=== PATIENT | female | born 1935 | race Caucasian/White ===

== ENCOUNTER 2017-05-09 19:20 | Inpatient (IN) | payer OTHER, MEDICARE ==
[~2017-05-09] VITALS: Ht 175.3 cm; Wt 78.2 kg
[~2017-05-09 19:20] MED LIST: ASPI81TA21 PO; ATV5 PO; CHOL100027 PO; CLBCRM30 EXT; CLX20 PO; FURO20TA PO; LOVA20TA4 PO; METO50TA7 PO; METR0.754; PRED-301 PO; SPIR25TA PO; prolia SC; uloric PO
[2017-05-09] MEDS ORDERED: SODIUM CHLORIDE 0.9% 1000ML 1,000 ML IV STA (19:44)
[2017-05-09] MEDS ORDERED: ONDANSETRON INJ 2 MG/ML 2 ML VIAL IV STA (19:44)
[2017-05-09] MEDS ORDERED: MoRPHine SULFATE 4 MG/ML 1 ML CARP\\VIAL IV PRN (19:45)
[2017-05-09 20:10] LABS: BASO % 0.5 %; BASO ABS # 0.03 K/uL (0-0.2); COMPLETE YES; EOS % 3.8 %; HEMATOCRIT 29.6 % (37-47); IG% 0.2 %; LYMPH % 12.8 %; LYMPH ABS # 0.74 K/uL (1.2-3.4); MEAN CELL VOLUME 92.5 fL (80-100); MEAN CORPUSCULAR HEMOGLOBIN 31.3 pg (25-34); MEAN CORPUSCULAR HGB CONC 33.8 g/dl (32-36); MEAN PLATELET VOLUME 9.3 fL (7.4-10.4); MONO % 11.1 %; NEUT % 71.6 %; PLATELET COUNT 203 K/uL (130-400); WHITE BLOOD COUNT 5.79 K/uL (4.8-10.8)
[2017-05-09] MEDS ORDERED: FURO-85 PO (20:11)
[2017-05-09] MEDS ORDERED: LISI-729 PO (20:11)
[2017-05-09] MEDS ORDERED: METO25TA3 PO (20:11)
[2017-05-09] MEDS ORDERED: TRMCR130WC TOP (20:11)
[2017-05-09] MEDS ORDERED: LCTX PO (20:11)
--- NOTE | 2017-05-09 20:11 | EMERGENCY ROOM VISIT NOTE ---
History Report prepared by Marlena: Selam Lemon Under the Supervision of: Dr. Lam Jernigan D.O. 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 She presents to the ED by EMS. She states that she fell over her own feet and fell onto carpet. She reports right hip pain. She denies any head pain, neck pain, shoulder pain, arm pain, leg pain, or back pain. She is not on any blood thinners. She states she has a cow heart valve replacement. 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 Pt denies shoulder pain, arm pain, leg pain. Review of Systems See HPI for pertinent positives & negatives. A total of 10 systems reviewed and were otherwise negative. Past Medical & Surgical Medical Problems: (1) H/O aortic valve replacement (2) Right femoral fracture Family History No pertinent family history stated. Social History Smoking Status: Current Every Day Smoker Marital Status: Occupation Status: retired Current/Historical Medications Scheduled Aspirin Enteric Coated (Ecotrin Or Generic), 81 MG PO Q2D Cholecalciferol (Vitamin D 1000 Unit), 1,000 INTER.UNIT PO DAILY Furosemide (Lasix), 20 MG PO QAM Lactobacillus Acidophilus (Lactinex), 1 TAB PO DAILY Lisinopril (Zestril), 5 MG PO DAILY Lovastatin (Mevacor), 20 MG PO HS Metoprolol Succ (Toprol Xl) (Toprol-Xl), 12.5 MG PO DAILY Triamcinolone Acet (Aristocort 0.1%), 1 APPLN TOP BID Allergies Coded Allergies: Allopurinol (Unverified Allergy, Intermediate, RASH, 05/30/12) Cephalosporins (Verified Allergy, Unknown, 05/09/17) Physical Exam Vital Signs Date Time Temp Pulse Resp B/P (MAP) Pulse Ox O2 Delivery O2 Flow Rate FiO2 05/09/17 21:31 188/77 05/09/17 21:25 70 19 99 05/09/17 21:21 68 18 172/95 99 Room Air 05/09/17 21:20 68 16 98 05/09/17 21:01 172/95 05/09/17 20:51 67 18 175/77 99 Room Air 05/09/17 20:50 65 20 98 05/09/17 20:40 175/77 05/09/17 19:50 67 17 97 05/09/17 19:45 67 18 147/69 98 Room Air 05/09/17 19:40 147/69 05/09/17 19:25 165/84 05/09/17 19:20 36.8 68 18 165/84 98 Room Air Physical Exam GENERAL: Patient is awake, alert, very anxious appearing, appears to be in significant pain. EYES: The conjunctivae are clear. The pupils are round and reactive. EARS, NOSE, MOUTH AND THROAT: The nose is without any evidence of any deformity. Mucous membranes are moist tongue is midline NECK: The neck is nontender and supple. RESPIRATORY: Normal respiratory effort is noted there is no evidence of wheezing rhonchi or rales CARDIOVASCULAR: Regular rate and rhythm noted to auscultation. Systolic murmur was appreciated. GASTROINTESTINAL: The abdomen is soft. Bowel sounds are present in all quadrants. Abdomen is nontender PELVIS: The Pelvis is stable. No tenderness to palpation is noted. BACK: No midline tenderness or or step-off noted range of motion in flexion extension as well as rotation no signs of muscle spasm noted MUSCULOSKELETAL/EXTREMITIES: RLE was mildly shortened, but not significantly rotated. Patient has significant pain with any ROM testing. Pulses were symmetric. SKIN: Pedal edema bilaterally. NEUROLOGIC: Patient is awake alert and oriented x3 Medical Decision & Procedures ER Provider Diagnostic Interpretation: X-ray results as stated below per interpretation by me and the radiologist. SINGLE VIEW CHEST CLINICAL HISTORY: Fall. FINDINGS: 2 AP, portable, supine chest radiographs are compared to study dated 01/27/2012 and correlated with chest CT dated 01/25/2012. The examination is degraded by portable technique and patient rotation. The patient is status post midline sternotomy. The heart is mildly enlarged and there is atherosclerotic calcification of the thoracic aorta. The pulmonary vasculature is noncongested. Emphysema and chronic interstitial thickening are similar to previous. No airspace consolidation, large pleural effusion, or pneumothorax is seen. Apical scarring is observed. The skeletal structures are osteopenic. The bony thorax is grossly intact. IMPRESSION: Cardiomegaly and emphysema. No acute cardiopulmonary abnormality is identified. Electronically signed by: Don Fallon M.D. 05/09/2017 8:28 PM Dictated Date/Time: 05/09/2017 8:27 PM SINGLE VIEW PELVIS; 2 VIEWS RIGHT HIP; 2 VIEWS RIGHT FEMUR CLINICAL HISTORY: Fall with right hip and leg pain. FINDINGS: An AP view of the pelvis with AP and frog-leg views of the right hip as well as AP and crosstable lateral views of the right femur are obtained. Correlation is made with pelvic CT dated 01/25/2012. The skeletal structures are osteopenic. There is an impacted and comminuted intertrochanteric/subtrochanteric fracture of the right femur. There is medial distraction of the lesser trochanter with mild apex lateral angulation. Soft tissue edema/hematoma is seen around the fracture site PA no additional fracture is identified in the distal right femur. The right knee is grossly intact noting arthritic change. The bony pelvis appears intact, as does the imaged left hip. Lumbosacral spondylosis is partially imaged. Moderate arthritic changes present in both hips, left greater than right. Sclerotic change is seen in the sacroiliac joints. There is a nonobstructed abdominal bowel gas pattern. Moderate colonic fecal retention is observed. Advanced atherosclerotic calcification is noted in the distal abdominal aorta and iliac arteries. Soft tissue calcifications project over both femora, likely located in the gluteal region. Phleboliths are observed in the pelvis. IMPRESSION: 1. There is an impacted, angulated, and comminuted intertrochanteric/subtrochanteric fracture of the right femur as above. 2. Soft tissue edema/hematoma is present around the fracture site. 3. The distal right femur is intact. There is no radiographic evidence of pelvic or left hip fracture. Electronically signed by: Don Fallon M.D. 05/09/2017 8:33 PM Dictated Date/Time: 05/09/2017 8:29 PM Laboratory Results 05/09/17 19:35 Red Blood Count 3.20, Mean Corpuscular Volume 92.5, Mean Corpuscular Hemoglobin 31.3, Mean Corpuscular Hemoglobin Concent 33.8, Mean Platelet Volume 9.3, Neutrophils (%) (Auto) 71.6, Lymphocytes (%) (Auto) 12.8, Monocytes (%) (Auto) 11.1, Eosinophils (%) (Auto) 3.8, Basophils (%) (Auto) 0.5, Neutrophils # (Auto ) 4.15, Lymphocytes # (Auto) 0.74, Monocytes # (Auto) 0.64, Eosinophils # (Auto ) 0.22, Basophils # (Auto) 0.03 05/09/17 19:35 Test 05/09/17 19:35 05/09/17 20:48 White Blood Count 5.79 K/uL (4.8-10.8) Red Blood Count 3.20 M/uL (4.2-5.4) Hemoglobin 10.0 g/dL (12.0-16.0) Hematocrit 29.6 % (37-47) Mean Corpuscular Volume 92.5 fL (80-100) Mean Corpuscular Hemoglobin 31.3 pg (25-34) Mean Corpuscular Hemoglobin Concent 33.8 g/dl (32-36) Platelet Count 203 K/uL (130-400) Mean Platelet Volume 9.3 fL (7.4-10.4) Neutrophils (%) (Auto) 71.6 % Lymphocytes (%) (Auto) 12.8 % Monocytes (%) (Auto) 11.1 % Eosinophils (%) (Auto) 3.8 % Basophils (%) (Auto) 0.5 % Neutrophils # (Auto) 4.15 K/uL (1.4-6.5) Lymphocytes # (Auto) 0.74 K/uL (1.2-3.4) Monocytes # (Auto) 0.64 K/uL (0.11-0.59) Eosinophils # (Auto) 0.22 K/uL (0-0.5) Basophils # (Auto) 0.03 K/uL (0-0.2) RDW Standard Deviation 45.4 fL (36.4-46.3) RDW Coefficient of Variation 13.4 % (11.5-14.5) Immature Granulocyte % (Auto) 0.2 % Immature Granulocyte # (Auto) 0.01 K/uL (0.00-0.02) Prothrombin Time 10.7 SECONDS (9.0-12.0) Prothromb Time International Ratio 1.0 (0.9-1.1) Activated Partial Thromboplast Time 25.6 SECONDS (21.0-31.0) Partial Thromboplastin Ratio 1.0 Anion Gap 10.0 mmol/L (3-11) Est Creatinine Clear Calc Drug Dose 44.4 ml/min Estimated GFR () 58.4 Estimated GFR (Non- 50.3 BUN/Creatinine Ratio 15.8 (10-20) Calcium Level 8.6 mg/dl (8.5-10.1) Urine Color YELLOW Urine Appearance CLEAR (CLEAR) Urine pH 6.0 (4.5-7.5) Urine Specific [place] 1.014 (1.000-1.030) Urine Protein NEG (NEG) Urine Glucose (UA) NEG (NEG) Urine Ketones NEG (NEG) Urine Occult Blood NEG (NEG) Urine Nitrite NEG (NEG) Urine Bilirubin NEG (NEG) Urine Urobilinogen NEG (NEG) Urine Leukocyte Esterase NEG (NEG) Laboratory results per my review. Medications Administered Medications (Trade) Dose Ordered Sig/Yossi Route Start Time Stop Time Status Last Admin Dose Admin Sodium Chloride 1,000 ml @ 200 mls/hr Q5H STAT IV 05/09/17 19:44 05/09/17 22:18 DC 05/09/17 19:53 200 MLS/HR Ondansetron HCl (Zofran Inj) 4 mg NOW STAT IV 05/09/17 19:44 05/09/17 19:46 DC 05/09/17 19:52 4 MG Morphine Sulfate (MoRPHine SULFATE INJ) 4 mg Q15M PRN IV 05/09/17 19:45 05/09/17 22:18 DC 05/09/17 19:53 4 MG ECG Indication: other (fall) Rate (beats per minute): 66 Rhythm: normal sinus Findings: no ectopy, other (no acute ST segment abnormality) Comparison ECG Date: 27-Jan-2012 Change: no significant change ED Course 1940: The patient was evaluated in room B9. A complete history and physical examination were performed. 1943: Zofran Inj 4 mg IV, NSS 1000 ml @ 200 mls/hr IV. 1944: Morphine Sulfate 4 mg IV. 2034: Upon reevaluation, the patient is stable. I discussed results and treatment plan with her. She verbalizes agreement and understanding. She wants Dr. Pineda for the ortho consult. The patient will be evaluated for further management and care. 2036: I [facility] the [facility]'s [facility] The patient will be evaluated for further management. Medical Decision Prior records/ancillary studies reviewed. Triage Nursing notes reviewed. The patient's history was concerning for traumatic injury Differential diagnosis: Etiologies such as fracture, dislocation, intra-abdominal, pneumothorax, intrathoracic , intracranial, neurologic, as well as other traumatic pathologies were entertained. The patient is an 82-year-old female who presented to the emergency department for an evaluation after a fall. The patient suffered a fall onto her right side striking her right hip. The patient's history and physical exam appeared to be consistent with a right hip injury. Radiographic studies revealed a significant right hip fracture. I discussed the patient's laboratory and radiographic studies with her. She was treated with IV fluids IV pain medicine and IV antiemetics. On subsequent reevaluation she was feeling significantly improved. The patient requested a specific orthopedic group. I discussed her case as well as [facility] evaluate the patient in emergency department for further management and disposition. Medication Reconcilliation Current Medication List: was personally reviewed by me Blood Pressure Screening Patient's blood pressure: Elevated blood pressure Blood pressure disposition: Elevated BP felt to be situational Consults Time Called: 2033 Consulting Physician: Tom Salcedo [facility] Returned Call: 2036 I discussed the patient's case with him. The patient will be evaluated for further management. Impression Primary Impression: Fall Additional Impression: Displaced intertrochanteric fracture of right femur Scribe Attestation The scribe's documentation has been prepared under my direction and personally reviewed by me in its entirety. I confirm that the note above accurately reflects all work, treatment, procedures, and medical decision making performed by me. Departure Information Dispostion Being Evaluated By Hospitalist Referrals Nathaly Larkin M.D. (PCP) Patient Instructions [facility] Problem Qualifiers
[2017-05-09 20:21] LABS: BUN/CREATININE RATIO 15.8 (10-20); CALCIUM 8.6 mg/dl (8.5-10.1); CREATININE 1.04 mg/dl (0.60-1.20); POTASSIUM 3.6 mmol/L (3.5-5.1)
[2017-05-09 20:23] LABS: PROTHROMBIN TIME (PATIENT) 10.7 SECONDS (9.0-12.0)
--- NOTE | 2017-05-09 20:30 | DIAGNOSTIC IMAGING REPORT ---
SINGLE VIEW CHEST CLINICAL HISTORY: Fall. FINDINGS: 2 AP, portable, supine chest radiographs are compared to study dated 01/27/2012 and correlated with chest CT dated 01/25/2012. The examination is degraded by portable technique and patient rotation. The patient is status post midline sternotomy. The heart is mildly enlarged and there is atherosclerotic calcification of the thoracic aorta. The pulmonary vasculature is noncongested. Emphysema and chronic interstitial thickening are similar to previous. No airspace consolidation, large pleural effusion, or pneumothorax is seen. Apical scarring is observed. The skeletal structures are osteopenic. The bony thorax is grossly intact. IMPRESSION: Cardiomegaly and emphysema. No acute cardiopulmonary abnormality is identified. Electronically signed by: Don Fallon M.D. 05/09/2017 8:28 PM Dictated Date/Time: 05/09/2017 8:27 PM
--- NOTE | 2017-05-09 20:35 | DIAGNOSTIC IMAGING REPORT ---
SINGLE VIEW PELVIS; 2 VIEWS RIGHT HIP; 2 VIEWS RIGHT FEMUR CLINICAL HISTORY: Fall with right hip and leg pain. FINDINGS: An AP view of the pelvis with AP and frog-leg views of the right hip as well as AP and crosstable lateral views of the right femur are obtained. Correlation is made with pelvic CT dated 01/25/2012. The skeletal structures are osteopenic. There is an impacted and comminuted intertrochanteric/subtrochanteric fracture of the right femur. There is medial distraction of the lesser trochanter with mild apex lateral angulation. Soft tissue edema/hematoma is seen around the fracture site PA no additional fracture is identified in the distal right femur. The right knee is grossly intact noting arthritic change. The bony pelvis appears intact, as does the imaged left hip. Lumbosacral spondylosis is partially imaged. Moderate arthritic changes present in both hips, left greater than right. Sclerotic change is seen in the sacroiliac joints. There is a nonobstructed abdominal bowel gas pattern. Moderate colonic fecal retention is observed. Advanced atherosclerotic calcification is noted in the distal abdominal aorta and iliac arteries. Soft tissue calcifications project over both femora, likely located in the gluteal region. Phleboliths are observed in the pelvis. IMPRESSION: 1. There is an impacted, angulated, and comminuted intertrochanteric/subtrochanteric fracture of the right femur as above. 2. Soft tissue edema/hematoma is present around the fracture site. 3. The distal right femur is intact. There is no radiographic evidence of pelvic or left hip fracture. Electronically signed by: Don Fallon M.D. 05/09/2017 8:33 PM Dictated Date/Time: 05/09/2017 8:29 PM
[2017-05-09 21:06] LABS: URINE APPEARANCE CLEAR (CLEAR); URINE BILIRUBIN NEG (NEG); URINE COLOR YELLOW; URINE NITRITE NEG (NEG); URINE SPECIFIC GRAVITY 1.014 (1.000-1.030); UROBILINOGEN NEG (NEG); ZZURINE CULT IF INDIC CATH NO
[2017-05-09 21:08] LABS: MANUAL MICROSCOPIC REQUIRED? NO; REVIEW REQ? NO
[2017-05-09] MEDS ORDERED: ALUMINUM/MAGNESIUM/SIMETH (MAALOX MAX) 30 ML UDC PO PRN (21:45)
[2017-05-09] MEDS ORDERED: HYDROmorphone INJ 0.5 MG/0.5 ML SYR IV PRN (21:45)
[2017-05-09] MEDS ORDERED: ONDANSETRON INJ 2 MG/ML 2 ML VIAL IV PRN (21:45)
[2017-05-09] MEDS ORDERED: POLYETHYLENE (MIRALAX) 17 GM PACK PO PRN (21:45)
[2017-05-09] MEDS ORDERED: MAGNESIUM HYDROXIDE SUSP 30 ML UDC PO PRN (21:45)
[2017-05-09 21:47] VITALS: Ht 175.3 cm; Wt 78.2 kg
[2017-05-09] MEDS ORDERED: HydrALAZINE HCL 20 MG/ML VIAL IV. PRN (22:00)
[2017-05-09 22:15] VITALS: O2SAT 99
[2017-05-09 22:30] VITALS: BP 169/76; PULSE 64; TEMP 36.7; O2SAT 99
[2017-05-09] MEDS: SODIUM CHLORIDE 0.9% 1000ML 1,000 ML IV SCH (22:35)
--- NOTE | 2017-05-09 23:08 | HISTORY & PHYSICAL EXAMINATION ---
DATE OF ADMISSION: 05/09/2017 CHIEF COMPLAINT: Status post fall and right hip fracture. HISTORY OF PRESENT ILLNESS: This is an 82-year-old female with past medical history significant for hypertension, chronic kidney disease stage III, polymyalgia rheumatica, gout arthropathy status post prosthetic aortic valve replacement, history of osteoarthrosis, presents with mechanical fall. The patient states she lives in a senior apartment around [facility] and she was out with her friends when she slipped and had a mechanical fall and she could not get up and her friends called the ambulance and was brought in here and found to have right hip fracture.says she was in lot of pain but currently patient is resting and pain is under control. Denies any loss of consciousness. Apparently, the patient was doing okay until this episode happened. Denies any headaches, no blurred vision, no dizziness. No cough. No sore throat or difficulty swallowing. No chest pain, no shortness of breath, no nausea, no vomiting, no abdominal pain. Appetite is okay. Normal bowel and bladder movements. No blood in the stools, no black stools, no blood in the urine. No skin rash, has chronic lower extremity edema. The patient says she can ambulate okay about 1-2 blocks without any problem. Climbing uphill makes her somewhat short of breath. Currently resting comfortably and hemodynamically stable. ALLERGIES: ALLOPURINOL. PAST MEDICAL HISTORY: As mentioned above. PAST SURGICAL HISTORY: Aortic valve replacement with prosthetic valve in 2007, breast biopsy, cardiac catheterization, cataract surgeries, colonoscopy and EGDs, cholecystectomy, total hysterectomy. MEDICATIONS: The patient is currently on lactobacillus 1 tablet p.o. daily, metoprolol succinate 12.5 mg p.o. daily, lovastatin 20 mg p.o. at bedtime, Lasix 20 mg p.o. daily, vitamin D 1000 units p.o. daily, lisinopril 5 mg p.o. daily, aspirin 81 mg p.o. daily, amoxicillin 500 mg 4 capsules 1 hour prior to appointment. FAMILY HISTORY: Significant for mother had rectum and nose cancer. Father had stroke. SOCIAL HISTORY: , currently living in a senior apartment in [facility]. Former smoker, quit in 1991. Prior to that smoked 1 pack a day for 35 years. No alcohol use. No drug use. REVIEW OF SYMPTOMS: As per HPI. Rest of review of systems negative. PHYSICAL EXAMINATION: GENERAL: The patient is old and frail, not in distress. VITAL SIGNS: Temperature 36.8, pulse 68, respiratory rate 18, blood pressure 172/95, oxygen 99% room air. HEENT: No pallor, no icterus. Pupils equal, round, and reactive to light. NECK: No JVD or neck masses, no carotid bruits. CARDIOVASCULAR: S1, S2 heard, regular rate and rhythm, no aortic murmur in aortic area heard. RESPIRATORY SYSTEM: Normal AP diameter. No accessory muscle use. No wheezing, no crackles. ABDOMEN: Soft, bowel sounds present. Nontender. No distention. CENTRAL NERVOUS SYSTEM: II-XII grossly intact. Nonfocal. EXTREMITIES: Right lower extremity is shortened and externally rotated. Bilateral lower extremity chronic edema present. LABORATORY DATA: Sodium 131, potassium 3.6, chloride 100, bicarbonate 21, BUN 16, creatinine 1.04, serum glucose 148, calcium 8.6. WBC 5.7, hemoglobin 10, hematocrit 29.6, platelets 203. PT 10.7, INR 1, PTT 25.6. Urinalysis negative. Chest x-ray, cardiomegaly and emphysema, no acute cardiopulmonary abnormalities seen. Femur x-ray shows impacted angulated and comminuted intertrochanteric and subtrochanteric fracture of the right femur. EKG shows normal sinus rhythm at 66, possible left atrial enlargement, no acute ST changes seen. ASSESSMENT AND PLAN: This is an 82-year-old female who presents with mechanical fall and right femur fracture. 1. Status post mechanical fall and right femur fracture. The patient's labs are okay and ambulatory status okay and no significant cardiac history. EKG is fine and chest x-ray is okay. The patient is at acceptable risk to proceed with surgery. We will control pain with IV pain medications, gentle IV fluids. Ortho consulted and notified. N.p.o. after midnight for possible surgery in a.m. 2. 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 We are holding the Lasix and placing on gentle fluids. Monitor for volume overload. 3. Chronic kidney disease stage III, creatinine is stable. We will follow the labs. 4. Hypertension. Continue Toprol-XL. Hold lisinopril until surgery and restart when stable. Placed on IV hydralazine p.r.n. 6. Hyperlipidemia. Hold the statin for now. 7. Deep venous thrombosis prophylaxis. Heparin subQ and hold am dose postoperative deep venous thrombosis prophylaxis per orthopedics. DISPOSITION: Monitor on the medical floor. PT and OT, post-surgery. Social Service to help with discharge planning. Level 1 full code. MTDD
[2017-05-10] VITALS (10 sets, daily range): BP systolic 119–172; BP diastolic 64–81; PULSE 64–82; TEMP 36.7–37.7; O2SAT 97–100
[2017-05-10] MEDS ORDERED: HEPARIN SOD 5000 UNIT/0.5 ML CARP SQ SCH (06:00)
[2017-05-10 06:12] LABS: BASO % 0.3 %; BASO ABS # 0.02 K/uL (0-0.2); COMPLETE YES; EOS % 2.3 %; HEMATOCRIT 26.1 % (37-47); IG% 0.1 %; LYMPH % 10.1 %; LYMPH ABS # 0.72 K/uL (1.2-3.4); MEAN CELL VOLUME 93.2 fL (80-100); MEAN CORPUSCULAR HEMOGLOBIN 32.1 pg (25-34); MEAN CORPUSCULAR HGB CONC 34.5 g/dl (32-36); MEAN PLATELET VOLUME 9.3 fL (7.4-10.4); MONO % 9.8 %; NEUT % 77.4 %; PLATELET COUNT 179 K/uL (130-400); WHITE BLOOD COUNT 7.11 K/uL (4.8-10.8)
[2017-05-10] MEDS ORDERED: BUPIVACAINE 0.5 % 5 MG/1 ML PF 10ML VIAL ONE ×2 (06:27→13:23)
[2017-05-10 06:52] LABS: BUN/CREATININE RATIO 17.6 (10-20); CALCIUM 8.2 mg/dl (8.5-10.1); CREATININE 0.79 mg/dl (0.60-1.20); POTASSIUM 4.2 mmol/L (3.5-5.1)
[2017-05-10] MEDS: TRIAMCINOLONE ACET 0.1% CR 15 GM TUBE EXT SCH ×3 (08:14→21:46)
[2017-05-10] MEDS: METOPROLOL SUCC 25MG EXT REL TAB PO SCH (08:14)
[2017-05-10] MEDS: CHOLECALCIFEROL 1000 INTER.UNIT TAB PO SCH (08:14)
[2017-05-10] MEDS: LACTOBACILLUS ACIDOPHILUS (FLORANEX) TAB PO SCH (08:14)
[2017-05-10] MEDS: ACETAMINOPHEN 325 MG TAB PO PRN ×2 (11:26→21:48)
[2017-05-10] MEDS: SODIUM CHLORIDE 0.9% 1000ML 1,000 ML IV SCH (11:27)
[2017-05-10] MEDS ORDERED: FENTANYL CITRATE INJ 50 MCG/1 ML 2 ML VIAL ONE ×2 (13:27→14:24)
[2017-05-10] MEDS ORDERED: MIDAZOLAM HCL 1 MG/ML 2ML VIAL ONE (13:27)
--- NOTE | 2017-05-10 13:38 | History & Physical Bridge Note ---
H&P Re-Evaluation Bridge Note: I have examined the patient, reviewed the History & Physical and in the interval since the performance of the History & Physical I have noted the following changes of clinical significance: No changes noted
[2017-05-10] MEDS: VANCOMYCIN 1GM/270ML NSS ONE ×2 (13:42→13:44)
[2017-05-10] MEDS ORDERED: ATROPINE SULFATE 0.1 MG/ML 5ML SYR IV PRN (13:45)
[2017-05-10] MEDS ORDERED: EpHEDrine SULFATE INJ 50 MG/ML AMP IV PRN (13:45)
[2017-05-10] MEDS ORDERED: ONDANSETRON INJ 2 MG/ML 2 ML VIAL IV PRN ×2 (13:45→15:00)
[2017-05-10] MEDS ORDERED: FENTANYL CITRATE INJ 50 MCG/1 ML 2 ML VIAL IV PRN (13:45)
[2017-05-10] MEDS ORDERED: DEXAMETHASONE SOD INJ 4 MG/ML VIAL ONE (14:16)
[2017-05-10] MEDS ORDERED: ROCURONIUM BROMIDE 10 MG/ML 5 ML VIAL IV ONE (14:16)
[2017-05-10] MEDS ORDERED: SUCCINYLCHOLINE CHLORIDE 20 MG/ML 10 ML VIAL IV ONE (14:16)
[2017-05-10] MEDS ORDERED: PROPOFOL IV EMULSION 10 MG/ML 20 ML VIAL IV ONE (14:16)
[2017-05-10] MEDS ORDERED: ONDANSETRON INJ 2 MG/ML 2 ML VIAL ONE (14:16)
[2017-05-10] MEDS ORDERED: LIDOCAINE HCL 2% 2 ML VIAL (20MG/ML) ONE (14:16)
[2017-05-10] MEDS ORDERED: PHENYLEPHRINE 100MCG/ML 5ML SYR ONE (14:21)
[2017-05-10] MEDS ORDERED: SODIUM CHLORIDE 0.9% 1000ML 1,000 ML IV SCH (14:51)
--- NOTE | 2017-05-10 14:51 | [facility] Post Operative Brief Note ---
Immediate Operative Summary Operative Date May 10, 2017. Pre-Operative Diagnosis Right Femur Fracture Post-Operative Diagnosis Right Femur Fracture Procedure(s) Performed Right [place] Surgeon Nithin Associate Account Executive Surgeon(s) Stan Rivera PA-C Estimated Blood Loss 25CC Findings as above Specimens None per surgeon Complication(s) None Disposition Recovery Room / PACU
--- NOTE | 2017-05-10 15:31 | DIAGNOSTIC IMAGING REPORT ---
R HIP OR FILMS CLINICAL HISTORY: RT TROCH NAIL COMPARISON STUDY: Right femur 05/09/2017. FLUOROSCOPY TIME: 1 minute and 18 seconds.. FINDINGS: 4 fluoroscopic spot images of the right femur. There is an intramedullary alberto within the right femur with an interlocking femoral neck pin traversing the intertrochanteric fracture. The hardware appears intact. The alignment appears near-anatomic. IMPRESSION: Fluoroscopy provided for internal fixation of a right femoral intertrochanteric fracture. Electronically signed by: Ludwig Braga M.D. 05/10/2017 3:30 PM Dictated Date/Time: 05/10/2017 3:29 PM
--- NOTE | 2017-05-10 15:38 | Anesthesiology Progress Note ---
Anesthesia Post Op Note Date & Time May 10, 2017 at 15:37 Vital Signs Pain Intensity: 0 Vital Signs Past 12 Hours Date Time Temp Pulse Resp B/P (MAP) Pulse Ox O2 Delivery O2 Flow Rate FiO2 05/10/17 15:30 63 16 178/78 100 Nasal Cannula 2 05/10/17 15:20 63 18 193/74 100 Oxymask 8 05/10/17 15:15 66 16 170/74 100 Oxymask 8 05/10/17 15:10 65 16 204/71 100 Oxymask 8 05/10/17 15:04 36.8 64 16 185/81 100 Oxymask 8 05/10/17 08:20 Room Air 05/10/17 07:05 37.1 80 18 120/65 (83) 98 Room Air 05/10/17 03:45 81 131/64 (86) Notes Mental Status: alert / awake / arousable, participated in evaluation Pt Amnestic to Procedure: Yes Nausea / Vomiting: adequately controlled Pain: adequately controlled Airway Patency, RR, SpO2: stable & adequate BP & HR: stable & adequate Hydration State: stable & adequate Anesthetic Complications: no major complications apparent
--- NOTE | 2017-05-10 15:54 | DIAGNOSTIC IMAGING REPORT ---
R HIP UNILATERAL 2 VIEWS CLINICAL HISTORY: s/p IM nail right hip COMPARISON STUDY: Right femur 05/09/2017. FINDINGS: Patient is status post internal fixation of a right femoral intertrochanteric fracture with intramedullary alberto and interlocking femoral neck pin. Hardware appears intact. The alignment is near-anatomic. No dislocation. Skin oh along the lateral aspect of the right thigh are identified. IMPRESSION: Status post internal fixation of a right femoral intertrochanteric fracture. The hardware appears intact. Electronically signed by: Ludwig Braga M.D. 05/10/2017 3:53 PM Dictated Date/Time: 05/10/2017 3:52 PM
--- NOTE | 2017-05-10 17:26 | Progress Note ---
Internal Med Progress Note Date of Service: May 10, 2017. Provider Documentation: SUBJECTIVE: patient examined in the AM and post-op after orthopedic surgery. Patient reports no acute discomfort after the surgery. No shortness of breath. No chest pain OBJECTIVE: Exam: General- no acute distress Eyes-EOMI ENT: moist mucous membranes Neck- no JVD, trachea midline Lungs-CTABL, no wheezing Heart- regular rate Abdomen-soft, nontender, + bowel sounds Extremities- dressings in place of right leg, right leg greater in size compared toe left leg, able to wiggle toes bilaterally Neuro- alert and oriented ASSESSMENT & PLAN: This is an 82-year-old female who presents with mechanical fall and right femur fracture. Status post mechanical fall and right femur fracture. s/p surgery (Right Trochanter nail) on 05/10/17. Pain control with bowel regimen. obtain PT/OT. History of chronic diastolic congestive heart failure secondary to mild valvular heart disease. restart Lasix post-op Chronic kidney disease stage III, trend renal function lans Hypertension. Continue Toprol-XL. Restart lisinopril after surgery. IV hydralazine prn Hyperlipidemia. Restart statin after surgery Deep venous thrombosis prophylaxis: Lovenox 40 mg daily Vital Signs: Date Time Temp Pulse Resp B/P (MAP) Pulse Ox O2 Delivery O2 Flow Rate FiO2 05/10/17 16:48 36.7 68 17 151/67 (95) 100 Nasal Cannula 2.0 05/10/17 16:15 36.8 64 18 155/68 (97) 100 Nasal Cannula 2.0 05/10/17 16:15 100 Nasal Cannula 2.0 05/10/17 15:55 66 16 159/92 100 Nasal Cannula 2 05/10/17 15:40 36.7 63 16 182/86 99 Nasal Cannula 2 05/10/17 15:30 63 16 178/78 100 Nasal Cannula 2 05/10/17 15:20 63 18 193/74 100 Oxymask 8 05/10/17 15:15 66 16 170/74 100 Oxymask 8 05/10/17 15:10 65 16 204/71 100 Oxymask 8 05/10/17 15:04 36.8 64 16 185/81 100 Oxymask 8 05/10/17 08:20 Room Air 05/10/17 07:05 37.1 80 18 120/65 (83) 98 Room Air 05/10/17 03:45 81 131/64 (86) 05/10/17 02:59 172/76 (108) 05/09/17 22:30 36.7 64 18 169/76 (107) 99 Room Air 05/09/17 22:15 99 Room Air 05/09/17 22:02 36.8 70 19 188/77 99 05/09/17 21:47 Room Air 05/09/17 21:31 188/77 05/09/17 21:25 70 19 99 05/09/17 21:21 68 18 172/95 99 Room Air 05/09/17 21:20 68 16 98 05/09/17 21:01 172/95 05/09/17 20:51 67 18 175/77 99 Room Air 05/09/17 20:50 65 20 98 05/09/17 20:40 175/77 05/09/17 19:50 67 17 97 05/09/17 19:45 67 18 147/69 98 Room Air 05/09/17 19:40 147/69 05/09/17 19:25 165/84 05/09/17 19:20 36.8 68 18 165/84 98 Room Air Lab Results: Results Past 24 Hours Test 05/09/17 19:35 05/09/17 20:48 05/10/17 05:44 Range/Units White Blood Count 5.79 7.11 4.8-10.8 K/uL Red Blood Count 3.20 2.80 4.2-5.4 M/uL Hemoglobin 10.0 9.0 12.0-16.0 g/dL Hematocrit 29.6 26.1 37-47 % Mean Corpuscular Volume 92.5 93.2 80-100 fL Mean Corpuscular Hemoglobin 31.3 32.1 25-34 pg Mean Corpuscular Hemoglobin Concent 33.8 34.5 32-36 g/dl Platelet Count 203 179 130-400 K/uL Mean Platelet Volume 9.3 9.3 7.4-10.4 fL Neutrophils (%) (Auto) 71.6 77.4 % Lymphocytes (%) (Auto) 12.8 10.1 % Monocytes (%) (Auto) 11.1 9.8 % Eosinophils (%) (Auto) 3.8 2.3 % Basophils (%) (Auto) 0.5 0.3 % Neutrophils # (Auto) 4.15 5.50 1.4-6.5 K/uL Lymphocytes # (Auto) 0.74 0.72 1.2-3.4 K/uL Monocytes # (Auto) 0.64 0.70 0.11-0.59 K/uL Eosinophils # (Auto) 0.22 0.16 0-0.5 K/uL Basophils # (Auto) 0.03 0.02 0-0.2 K/uL RDW Standard Deviation 45.4 46.7 36.4-46.3 fL RDW Coefficient of Variation 13.4 13.5 11.5-14.5 % Immature Granulocyte % (Auto) 0.2 0.1 % Immature Granulocyte # (Auto) 0.01 0.01 0.00-0.02 K/uL Prothrombin Time 10.7 9.0-12.0 SECONDS Prothromb Time International Ratio 1.0 0.9-1.1 Activated Partial Thromboplast Time 25.6 21.0-31.0 SECONDS Partial Thromboplastin Ratio 1.0 Sodium Level 131 134 136-145 mmol/L Potassium Level 3.6 4.2 3.5-5.1 mmol/L Chloride Level 100 103 98-107 mmol/L Carbon Dioxide Level 21 25 21-32 mmol/L Anion Gap 10.0 6.0 3-11 mmol/L Blood Urea Nitrogen 16 14 7-18 mg/dl Creatinine 1.04 0.79 0.60-1.20 mg/dl Est Creatinine Clear Calc Drug Dose 44.4 58.4 ml/min Estimated GFR () 58.4 81.4 Estimated GFR (Non- 50.3 70.2 BUN/Creatinine Ratio 15.8 17.6 10-20 Random Glucose 148 99 70-99 mg/dl Calcium Level 8.6 8.2 8.5-10.1 mg/dl Urine Color YELLOW Urine Appearance CLEAR CLEAR Urine pH 6.0 4.5-7.5 Urine Specific [place] 1.014 1.000-1.030 Urine Protein NEG NEG Urine Glucose (UA) NEG NEG Urine Ketones NEG NEG Urine Occult Blood NEG NEG Urine Nitrite NEG NEG Urine Bilirubin NEG NEG Urine Urobilinogen NEG NEG Urine Leukocyte Esterase NEG NEG Magnesium Level 2.0 1.8-2.4 mg/dl
[2017-05-10] MEDS ORDERED: ENOXAPARIN 40 MG/0.4 ML SYR SQ SCH (18:00)
--- NOTE | 2017-05-10 19:23 | OPERATIVE REPORT ---
DATE OF OPERATION: 05/10/2017 PREOPERATIVE DIAGNOSIS: Intertrochanteric fracture of the right hip. POSTOPERATIVE DIAGNOSIS: Same. PROCEDURE: Intramedullary nail fixation of the right hip. SURGEON: Dr. Jack Weller. SURFACE GRINDER: Stan Rivera PA-C, whose assistance was necessary for positioning of the leg and helping with instrumentation. ANESTHESIA: General. COMPLICATIONS: None. CONDITION: Stable to PACU. IMPLANTS USED: I used a Synthes TFN nail. INDICATIONS: Batsheva is a pleasant 82-year-old female who lives in a intermediate apartment. She fell yesterday on to her right hip. She came to the Emergency Room where radiographs demonstrated a right intertrochanteric hip fracture. She was admitted to the medical service and elected to proceed with intramedullary nail fixation of her right hip. DESCRIPTION OF THE PROCEDURE: On 05/09/2017, she was brought down from the hospital room to the preoperative holding area. The operative extremity was identified and signed. She was given a preoperative antibiotic and taken back to the operating room and put under general anesthesia. She was put on the fracture table. The right hip was then prepped and draped in sterile fashion and the time-out was done. The patient and operative extremity was properly identified. Fluoroscopy was used throughout the case. A small incision was made just proximal to the greater trochanter. A guide pin was placed at the tip of the greater trochanter and advanced down the center of the femoral canal. Appropriate position was checked under orthogonal fluoroscopic images. An 18 mm opening reamer was used to open up the proximal femur. A ball tip guidewire was then passed down the length of the femur and the nail measured to be 380 mm. A 380 x 11 mm TFN nail was then sent down the center of the femoral canal. An outrigger was placed. A small incision was made over the lateral cortex for the helical blade. Dissection was taken down to the lateral femur and the trocar was advanced. A guide pin was placed into the center-center position of the femoral head. The helical blade was measured to be 100 mm. The lateral cortex was then drilled and a 100 mm helical blade was then impacted into the center of the femoral head. The blade was then locked and the outrigger was removed. Final fluoroscopic images showed anatomic alignment. Perfect wilton technique was done distally to place a distal locking screw. Final fluoroscopic images were taken. The incisions were then irrigated and closed with 2-0 Vicryl and oh. She was placed in a soft dressing, extubated, transferred to a [facility] and taken to the postanesthesia care unit in stable condition. She tolerated the procedure well. I attest to the content of the Intraoperative Record and any orders documented therein. Any exception s are noted below.
[2017-05-10] MEDS: LOVASTATIN 20 MG TAB PO SCH (21:46)
[2017-05-11] MEDS ORDERED: VANCOMYCIN INJ 1,250 MG in SODIUM CHLORIDE 0.9% 250ML 250 ML IV SCH (03:00)
[2017-05-11] MEDS: SODIUM CHLORIDE 0.9% 1000ML 1,000 ML IV SCH (03:10)
[2017-05-11 03:11] VITALS: BP 127/76; PULSE 93; TEMP 36.6; O2SAT 97
[2017-05-11] MEDS: ENOXAPARIN 40 MG/0.4 ML SYR SQ SCH (03:11)
[2017-05-11 05:44] LABS: BASO % 0.1 %; BASO ABS # 0.01 K/uL (0-0.2); HEMATOCRIT 21.4 % (37-47); IG% 0.2 %; LYMPH % 4.7 %; LYMPH ABS # 0.41 K/uL (1.2-3.4); MEAN CORPUSCULAR HEMOGLOBIN 32.2 pg (25-34); MEAN CORPUSCULAR HGB CONC 34.6 g/dl (32-36); MEAN PLATELET VOLUME 9.4 fL (7.4-10.4); MONO % 8.6 %; NEUT % 86.4 %; PLATELET COUNT 146 K/uL (130-400); WHITE BLOOD COUNT 8.65 K/uL (4.8-10.8)
[2017-05-11 06:13] LABS: BUN/CREATININE RATIO 20.9 (10-20); CALCIUM 8.2 mg/dl (8.5-10.1); CREATININE 0.83 mg/dl (0.60-1.20); MAGNESIUM 2.1 mg/dl (1.8-2.4); POTASSIUM 4.4 mmol/L (3.5-5.1)
[2017-05-11 06:21] LABS: COMPLETE YES
[2017-05-11] MEDS ORDERED: NURSING DECISION MEDICATION ORDER SCH (06:30)
[2017-05-11 06:57] VITALS: BP 146/72; PULSE 82; TEMP 36.4; O2SAT 94
--- NOTE | 2017-05-11 08:42 | Anesthesiology Progress Note ---
Anesthesia Post Op Note Date & Time May 11, 2017 at 08:41 Vital Signs Pain Intensity: 0.0 Vital Signs Past 12 Hours Date Time Temp Pulse Resp B/P (MAP) Pulse Ox O2 Delivery O2 Flow Rate FiO2 05/11/17 08:05 Room Air 05/11/17 06:57 36.4 82 20 146/72 (96) 94 Room Air 05/11/17 03:11 36.6 93 17 127/76 (93) 97 Room Air 05/10/17 23:19 Room Air 05/10/17 22:54 36.7 77 17 119/68 (85) 97 Room Air Notes Mental Status: alert / awake / arousable, participated in evaluation Pt Amnestic to Procedure: Yes Nausea / Vomiting: adequately controlled Pain: adequately controlled Airway Patency, RR, SpO2: stable & adequate BP & HR: stable & adequate Hydration State: stable & adequate Anesthetic Complications: no major complications apparent
[2017-05-11] MEDS: FUROSEMIDE 20 MG TAB PO SCH (08:54)
[2017-05-11] MEDS: METOPROLOL SUCC 25MG EXT REL TAB PO SCH (08:54)
[2017-05-11] MEDS: LACTOBACILLUS ACIDOPHILUS (FLORANEX) TAB PO SCH (08:54)
[2017-05-11] MEDS: TRIAMCINOLONE ACET 0.1% CR 15 GM TUBE EXT SCH ×2 (08:55→21:00)
[2017-05-11] MEDS: CHOLECALCIFEROL 1000 INTER.UNIT TAB PO SCH (08:55)
[2017-05-11] MEDS: LISINOPRIL 5 MG TAB PO SCH (08:55)
[2017-05-11 10:43] VITALS: BP 106/67; PULSE 82; TEMP 36.9; O2SAT 94
[2017-05-11 11:57] LABS: BASO % 0.1 %; BASO ABS # 0.01 K/uL (0-0.2); EOS % 0.1 %; HEMATOCRIT 21.8 % (37-47); IG% 0.1 %; LYMPH % 4.7 %; LYMPH ABS # 0.52 K/uL (1.2-3.4); MEAN CELL VOLUME 93.2 fL (80-100); MEAN CORPUSCULAR HEMOGLOBIN 32.1 pg (25-34); MEAN CORPUSCULAR HGB CONC 34.4 g/dl (32-36); MEAN PLATELET VOLUME 8.8 fL (7.4-10.4); MONO % 9.4 %; NEUT % 85.6 %; PLATELET COUNT 159 K/uL (130-400); RED BLOOD COUNT 2.34 M/uL (4.2-5.4)
[2017-05-11 12:24] LABS: COMPLETE YES
[2017-05-11] MEDS: ACETAMINOPHEN 325 MG TAB PO PRN ×2 (13:02→21:25)
--- NOTE | 2017-05-11 13:58 | Clinical Documentation Query ---
CLINICAL DOCUMENTATION QUERY Dr. VANN, In your clinical opinion is this patient being managed for: ( x) Acute blood loss anemia due to fall with femur fracture ( ) Not Agree ( ) Other explanation of clinical findings (Please Explain) ( ) Unable to determine (Please Define) ( ) Need to Discuss The medical record reflects the following clinical findings, treatment, and risk factors. Clinical Indicators: 82 yo female presenting with Hgb 10, Hct 29.6 which has trended down to 7.5/21.8. Treatment: daily CBC with Repeated CBC after original 10/20 AM results Risk Factors: fall with femur fracture Please clarify and document your clinical opinion in the progress notes and discharge summary. Terms such as "probable", "suspected", "likely", "questionable", "possible", or "still to be ruled out" are acceptable. IF IN AGREEMENT, YOU MUST DOCUMENT ABOVE DIAGNOSTIC STATEMENT IN DAILY PROGRESS NOTES AND DISCHARGE SUMMARY. This document is not part of the patient's record. Thank You, Cindy Peterson RN [phone]
[2017-05-11 15:32] VITALS: BP 107/66; PULSE 82; TEMP 36.7; O2SAT 94
--- NOTE | 2017-05-11 18:12 | Progress Note ---
Internal Med Progress Note Date of Service: May 11, 2017. Provider Documentation: SUBJECTIVE: patient examined in the AM and post-op after orthopedic surgery. Patient reports no acute discomfort after the surgery. No shortness of breath. No chest pain OBJECTIVE: Exam: General- no acute distress Eyes-EOMI ENT: moist mucous membranes Neck- no JVD, trachea midline Lungs-CTABL, no wheezing Heart- regular rate Abdomen-soft, nontender, + bowel sounds Extremities- dressings in place of right leg, right leg greater in size compared toe left leg, able to wiggle toes bilaterally Neuro- alert and oriented ASSESSMENT & PLAN: This is an 82-year-old female who presents with mechanical fall and right femur fracture. Status post mechanical fall and right femur fracture. s/p surgery (Right Trochanter nail) on 05/10/17. Pain control with bowel regimen. PT/OT. Anemia: from 10 to 9 to 7.4 in the AM of 05/11/17 with repeat CBC in the afternoon on 05/11/17 stable at 7.5, decline in hemoglobin secondary to fracture and combination with post-surgical blood loss. History of chronic diastolic congestive heart failure secondary to mild valvular heart disease. restart Lasix post-op Chronic kidney disease stage III, trend renal function labs Hypertension. Continue Toprol-XL. Restarted lisinopril after surgery. IV hydralazine prn Hyperlipidemia. Restarted statin after surgery Deep venous thrombosis prophylaxis: Lovenox 40 mg daily Vital Signs: Date Time Temp Pulse Resp B/P (MAP) Pulse Ox O2 Delivery O2 Flow Rate FiO2 05/11/17 15:45 Room Air 05/11/17 15:32 36.7 82 18 107/66 (80) 94 Room Air 05/11/17 10:43 36.9 82 20 106/67 (80) 94 Room Air 05/11/17 08:05 Room Air 05/11/17 06:57 36.4 82 20 146/72 (96) 94 Room Air 05/11/17 03:11 36.6 93 17 127/76 (93) 97 Room Air 05/10/17 23:19 Room Air 05/10/17 22:54 36.7 77 17 119/68 (85) 97 Room Air 05/10/17 19:26 37.0 69 17 131/80 (97) 100 Room Air 05/10/17 18:29 37.2 78 16 145/71 (95) 100 Room Air Lab Results: Results Past 24 Hours Test 05/11/17 05:15 05/11/17 11:46 Range/Units White Blood Count 8.65 11.00 4.8-10.8 K/uL Red Blood Count 2.30 2.34 4.2-5.4 M/uL Hemoglobin 7.4 7.5 12.0-16.0 g/dL Hematocrit 21.4 21.8 37-47 % Mean Corpuscular Volume 93.0 93.2 80-100 fL Mean Corpuscular Hemoglobin 32.2 32.1 25-34 pg Mean Corpuscular Hemoglobin Concent 34.6 34.4 32-36 g/dl Platelet Count 146 159 130-400 K/uL Mean Platelet Volume 9.4 8.8 7.4-10.4 fL Neutrophils (%) (Auto) 86.4 85.6 % Lymphocytes (%) (Auto) 4.7 4.7 % Monocytes (%) (Auto) 8.6 9.4 % Eosinophils (%) (Auto) 0.0 0.1 % Basophils (%) (Auto) 0.1 0.1 % Neutrophils # (Auto) 7.47 9.42 1.4-6.5 K/uL Lymphocytes # (Auto) 0.41 0.52 1.2-3.4 K/uL Monocytes # (Auto) 0.74 1.03 0.11-0.59 K/uL Eosinophils # (Auto) 0.00 0.01 0-0.5 K/uL Basophils # (Auto) 0.01 0.01 0-0.2 K/uL RDW Standard Deviation 46.6 46.7 36.4-46.3 fL RDW Coefficient of Variation 13.7 13.7 11.5-14.5 % Immature Granulocyte % (Auto) 0.2 0.1 % Immature Granulocyte # (Auto) 0.02 0.01 0.00-0.02 K/uL Red Blood Cell Morphology Unremarkable Unremarkable Sodium Level 135 136-145 mmol/L Potassium Level 4.4 3.5-5.1 mmol/L Chloride Level 106 98-107 mmol/L Carbon Dioxide Level 24 21-32 mmol/L Anion Gap 5.0 3-11 mmol/L Blood Urea Nitrogen 17 7-18 mg/dl Creatinine 0.83 0.60-1.20 mg/dl Est Creatinine Clear Calc Drug Dose 55.6 ml/min Estimated GFR () 76.6 Estimated GFR (Non- 66.1 BUN/Creatinine Ratio 20.9 10-20 Random Glucose 127 70-99 mg/dl Calcium Level 8.2 8.5-10.1 mg/dl Magnesium Level 2.1 1.8-2.4 mg/dl
[2017-05-11] MEDS: LOVASTATIN 20 MG TAB PO SCH (21:24)
[2017-05-11 23:12] VITALS: BP 140/68; PULSE 92; TEMP 36.8; O2SAT 98
[2017-05-12] VITALS (10 sets, daily range): BP systolic 96–128; BP diastolic 52–72; PULSE 72–90; TEMP 36.2–37.1; O2SAT 96–100
[2017-05-12] MEDS: ENOXAPARIN 40 MG/0.4 ML SYR SQ SCH (05:04)
[2017-05-12 06:24] LABS: MEAN CELL VOLUME 91.8 fL (80-100); MEAN CORPUSCULAR HEMOGLOBIN 31.9 pg (25-34); MEAN CORPUSCULAR HGB CONC 34.7 g/dl (32-36); MEAN PLATELET VOLUME 9.4 fL (7.4-10.4); PLATELET COUNT 139 K/uL (130-400); RED BLOOD COUNT 2.07 M/uL (4.2-5.4); WHITE BLOOD COUNT 8.65 K/uL (4.8-10.8)
[2017-05-12 06:43] LABS: BUN/CREATININE RATIO 19.5 (10-20); CALCIUM 8.6 mg/dl (8.5-10.1); CREATININE 1.48 mg/dl (0.60-1.20); MAGNESIUM 1.9 mg/dl (1.8-2.4); POTASSIUM 4.6 mmol/L (3.5-5.1)
[2017-05-12 06:44] LABS: BASO % 0.1 %; BASO ABS # 0.01 K/uL (0-0.2); COMPLETE YES; EOS % 0.9 %; IG% 0.3 %; LYMPH ABS # 0.69 K/uL (1.2-3.4); MONO % 8.9 %; NEUT % 81.8 %; POLYCHROMASIA 1+
[2017-05-12] MEDS: CHOLECALCIFEROL 1000 INTER.UNIT TAB PO SCH (08:25)
[2017-05-12] MEDS: METOPROLOL SUCC 25MG EXT REL TAB PO SCH (08:25)
[2017-05-12] MEDS: LACTOBACILLUS ACIDOPHILUS (FLORANEX) TAB PO SCH (08:25)
[2017-05-12] MEDS: TRIAMCINOLONE ACET 0.1% CR 15 GM TUBE EXT SCH ×2 (08:26→21:32)
[2017-05-12] MEDS: LISINOPRIL 5 MG TAB PO SCH (08:26)
[2017-05-12] MEDS: FUROSEMIDE 20 MG TAB PO SCH (08:26)
--- NOTE | 2017-05-12 09:57 | PROGRESS NOTE ---
DATE: 05/12/2017 DATE: 05/12/2017 CHIEF COMPLAINT: Status post IM nail of the right hip postop day #2. PROGRESS: Batsheva was seen and examined at bedside today. Overall, she is doing very well. She has been walking up and down the hallways with physical therapy. She is a little bit fatigued, but she does have some anemia and she is currently getting a blood transfusion. She has no other complaints. PHYSICAL EXAMINATION: The incisions were examined. The dressing has been changed. The incisions are open to air. There are no signs of severe ecchymosis or bleeding from the incision sites. Her leg lengths are equal. She is neurovascularly intact. LABORATORY DATA: She has an H&H today of 6.6 and 19.0. Her glucose is 121. Her vital signs are stable on room air and she is now voiding on her own. IMPRESSION: Status post intramedullary nail of the right hip, postop day #2. PLAN: At this point, she is doing very well. I explained that to her at bedside. She is currently getting a blood transfusion for her postoperative anemia. I think the anemia is simply from the fracture. I do not think she has any current bleeding. She is on Lovenox 40 mg daily for DVT prophylaxis and she will be on Lovenox likely for 4 weeks. I will see her in my office in 2 weeks to remove the oh. She is orthopedically stable for discharge when medically ready, however we certainly need to correct her anemia first.
[2017-05-12 13:18] LABS: HEMATOCRIT 23.3 % (37-47); MEAN CELL VOLUME 90.7 fL (80-100); MEAN CORPUSCULAR HEMOGLOBIN 31.1 pg (25-34); MEAN CORPUSCULAR HGB CONC 34.3 g/dl (32-36); MEAN PLATELET VOLUME 9.7 fL (7.4-10.4); PLATELET COUNT 161 K/uL (130-400); RED BLOOD COUNT 2.57 M/uL (4.2-5.4); WHITE BLOOD COUNT 9.06 K/uL (4.8-10.8)
[2017-05-12] MEDS: ACETAMINOPHEN 325 MG TAB PO PRN ×2 (15:07→23:50)
[2017-05-12] MEDS ORDERED: SODIUM CHLORIDE 0.9% 1000ML 1,000 ML IV STA (15:38)
--- NOTE | 2017-05-12 15:51 | Progress Note ---
Internal Med Progress Note Date of Service: May 12, 2017. Provider Documentation: SUBJECTIVE: Patient denies no complaints of discomfort. No shortness of breath. No chest pain. No abdominal pain. However Hgb trended down from 7.5 to 6.6. Patient s/p 1 unit PRBC with repeat Hgb at 8. OBJECTIVE: Exam: General- no acute distress Eyes-EOMI ENT: moist mucous membranes Neck- no JVD, trachea midline Lungs-CTABL, no wheezing Heart- regular rate Abdomen-soft, nontender, + bowel sounds Extremities- sutures in place of right leg, right leg greater in size compared toe left leg, able to wiggle toes bilaterally Neuro- alert and oriented ASSESSMENT & PLAN: This is an 82-year-old female who presents with mechanical fall and right femur fracture. Status post mechanical fall and right femur fracture. s/p surgery (Right Trochanter nail) on 05/10/17. Pain control with bowel regimen. PT/OT. Anemia: from Hgb 10 to 9 to 7.4 in the AM of 05/11/17 with repeat CBC in the afternoon on 05/11/17 stable at 7.5. However trended down to 6.6 in the AM of 05/12/17, patient s/p 1 unit PRBC with repeat Hgb at 8. decline in hemoglobin secondary to fracture and combination with post-surgical blood loss no known blood in bowel movements at this time, ordered fecal occult blood test no hemoptysis, lower extremities does not appear to have swelling due to blood loss into legs History of chronic diastolic congestive heart failure secondary to mild valvular heart disease. restarted Lasix post-op Chronic kidney disease creatinine increase from 0.83 to 1.48 PENNIE could be from diuresis with Lasix hold lisinopril for now ordered IV fluids Continue Lasix as patient receiving additional fluid volume with PRBC check creatinine kinase Hypertension. Continue Toprol-XL. IV hydralazine prn Hyperlipidemia. Restarted statin after surgery. check creatinine kinase Deep venous thrombosis prophylaxis: Lovenox 40 mg daily Disposition: as per orthopedics Dr. Weller: continue Lovenox 40 mg daily for likely for [address] Weller will see patient in his office in 2 weeks to remove the oh. transfer to rehab facility when anemia resolves Vital Signs: Date Time Temp Pulse Resp B/P (MAP) Pulse Ox O2 Delivery O2 Flow Rate FiO2 05/12/17 14:58 37.1 77 18 118/62 (80) 97 Room Air 05/12/17 12:10 36.9 76 18 122/72 96 05/12/17 10:45 36.8 81 20 108/66 05/12/17 09:45 36.9 79 20 110/57 99 05/12/17 09:14 37.1 76 20 119/65 100 05/12/17 08:45 37.0 90 20 102/64 05/12/17 08:30 36.2 80 18 96/52 05/12/17 08:03 36.7 84 20 119/72 05/12/17 08:00 Room Air 05/12/17 06:59 37.0 80 18 117/64 (81) 97 Room Air 05/12/17 00:09 Room Air 05/11/17 23:12 36.8 92 16 140/68 (92) 98 Room Air Lab Results: Results Past 24 Hours Test 05/12/17 05:30 05/12/17 12:56 05/12/17 15:37 Range/Units White Blood Count 8.65 9.06 4.8-10.8 K/uL Red Blood Count 2.07 2.57 4.2-5.4 M/uL Hemoglobin 6.6 8.0 12.0-16.0 g/dL Hematocrit 19.0 23.3 37-47 % Mean Corpuscular Volume 91.8 90.7 80-100 fL Mean Corpuscular Hemoglobin 31.9 31.1 25-34 pg Mean Corpuscular Hemoglobin Concent 34.7 34.3 32-36 g/dl Platelet Count 139 161 130-400 K/uL Mean Platelet Volume 9.4 9.7 7.4-10.4 fL Neutrophils (%) (Auto) 81.8 % Lymphocytes (%) (Auto) 8.0 % Monocytes (%) (Auto) 8.9 % Eosinophils (%) (Auto) 0.9 % Basophils (%) (Auto) 0.1 % Neutrophils # (Auto) 7.07 1.4-6.5 K/uL Lymphocytes # (Auto) 0.69 1.2-3.4 K/uL Monocytes # (Auto) 0.77 0.11-0.59 K/uL Eosinophils # (Auto) 0.08 0-0.5 K/uL Basophils # (Auto) 0.01 0-0.2 K/uL RDW Standard Deviation 46.2 47.0 36.4-46.3 fL RDW Coefficient of Variation 13.7 14.1 11.5-14.5 % Immature Granulocyte % (Auto) 0.3 % Immature Granulocyte # (Auto) 0.03 0.00-0.02 K/uL Polychromasia 1+ Sodium Level 130 136-145 mmol/L Potassium Level 4.6 3.5-5.1 mmol/L Chloride Level 101 98-107 mmol/L Carbon Dioxide Level 22 21-32 mmol/L Anion Gap 7.0 3-11 mmol/L Blood Urea Nitrogen 29 7-18 mg/dl Creatinine 1.48 0.60-1.20 mg/dl Est Creatinine Clear Calc Drug Dose 31.2 ml/min Estimated GFR () 38.1 Estimated GFR (Non- 32.9 BUN/Creatinine Ratio 19.5 10-20 Random Glucose 121 70-99 mg/dl Calcium Level 8.6 8.5-10.1 mg/dl Magnesium Level 1.9 1.8-2.4 mg/dl
[2017-05-12] MEDS: LOVASTATIN 20 MG TAB PO SCH (21:32)
[2017-05-13] VITALS (10 sets, daily range): BP systolic 116–178; BP diastolic 63–77; PULSE 69–88; TEMP 36.6–37.3; O2SAT 97–100
[2017-05-13] MEDS: ENOXAPARIN 40 MG/0.4 ML SYR SQ SCH (03:08)
[2017-05-13 08:09] LABS: HEMATOCRIT 20.6 % (37-47); MEAN CELL VOLUME 91.2 fL (80-100); MEAN CORPUSCULAR HEMOGLOBIN 31.4 pg (25-34); MEAN CORPUSCULAR HGB CONC 34.5 g/dl (32-36); MEAN PLATELET VOLUME 9.2 fL (7.4-10.4); PLATELET COUNT 161 K/uL (130-400); RED BLOOD COUNT 2.26 M/uL (4.2-5.4); WHITE BLOOD COUNT 8.08 K/uL (4.8-10.8)
[2017-05-13 08:36] LABS: BUN/CREATININE RATIO 22.6 (10-20); CALCIUM 8.4 mg/dl (8.5-10.1); CREATININE 0.99 mg/dl (0.60-1.20); POTASSIUM 4.5 mmol/L (3.5-5.1)
[2017-05-13] MEDS: LACTOBACILLUS ACIDOPHILUS (FLORANEX) TAB PO SCH (09:11)
[2017-05-13] MEDS: METOPROLOL SUCC 25MG EXT REL TAB PO SCH (09:11)
[2017-05-13] MEDS: CHOLECALCIFEROL 1000 INTER.UNIT TAB PO SCH (09:11)
[2017-05-13] MEDS: TRIAMCINOLONE ACET 0.1% CR 15 GM TUBE EXT SCH ×2 (09:11→20:59)
[2017-05-13] MEDS: FUROSEMIDE 20 MG TAB PO SCH (09:12)
[2017-05-13] MEDS ORDERED: SENNA 8.6 MG TAB PO STA (09:37)
--- NOTE | 2017-05-13 09:40 | Progress Note ---
Internal Med Progress Note Date of Service: May 13, 2017. Provider Documentation: SUBJECTIVE: Patient denies no complaints of discomfort. No shortness of breath. No chest pain. No abdominal pain. However Hgb downtrending to 7.1. Also reporting constipation OBJECTIVE: Exam: General- no acute distress Eyes-EOMI ENT: moist mucous membranes Neck- no JVD, trachea midline Lungs-CTABL, no wheezing Heart- regular rate Abdomen-soft, nontender, + bowel sounds Extremities- right leg greater in size compared toe left leg, able to wiggle toes bilaterally Neuro- alert and oriented ASSESSMENT & PLAN: This is an 82-year-old female who presents with mechanical fall and right femur fracture. Status post mechanical fall and right femur fracture. s/p surgery (Right Trochanter nail) on 05/10/17. Pain control with bowel regimen. PT/OT. Anemia: from Hgb 10 to 9 to 7.4 in the AM of 05/11/17 with repeat CBC in the afternoon on 05/11/17 stable at 7.5. However trended down to 6.6 in the AM of 05/12/17, patient s/p 1 unit PRBC with repeat Hgb at 8. AM labs on 05/13/17 with Hgb 7.1 decline in hemoglobin secondary to fracture and combination with post-surgical blood loss no known blood in bowel movements at this time, have ordered fecal occult blood test no hemoptysis, there is no obvious bruising of lower extremities, but right leg has been more swollen than left leg and will order CT right lower extremity and CT abdomen/pelvis to rule out large hematoma Constipation likely due to pain medications post-op adding senna/colace onto Miralax History of chronic diastolic congestive heart failure secondary to mild valvular heart disease. restarted Lasix post-op Chronic kidney disease creatinine had increased from 0.83 to 1.48, PENNIE could be from diuresis with Lasix / hold lisinopril for now / given IV fluids starting on 05/12/17 and creatinine downtrending to 0.99 Continue Lasix as patient receiving additional fluid volume with PRBC creatinine kinase 79 and within normal limits Hypertension. Continue Toprol-XL. IV hydralazine prn Hyperlipidemia. Restarted statin after surgery Deep venous thrombosis prophylaxis: Lovenox 40 mg daily Disposition: as per orthopedics Dr. Weller: continue Lovenox 40 mg daily for likely for [address] Weller will see patient in his office in 2 weeks to remove the oh. transfer to rehab facility when anemia resolves Vital Signs: Date Time Temp Pulse Resp B/P (MAP) Pulse Ox O2 Delivery O2 Flow Rate FiO2 05/13/17 08:00 Room Air 05/13/17 06:50 36.6 76 16 153/71 (98) 100 Room Air 05/12/17 23:48 Room Air 05/12/17 23:35 36.8 72 18 128/72 (90) 96 Room Air 05/12/17 15:45 Room Air 05/12/17 14:58 37.1 77 18 118/62 (80) 97 Room Air 05/12/17 12:10 36.9 76 18 122/72 96 05/12/17 10:45 36.8 81 20 108/66 05/12/17 09:45 36.9 79 20 110/57 99 Lab Results: Results Past 24 Hours Test 05/12/17 12:56 05/12/17 15:55 05/13/17 07:49 Range/Units White Blood Count 9.06 8.08 4.8-10.8 K/uL Red Blood Count 2.57 2.26 4.2-5.4 M/uL Hemoglobin 8.0 7.1 12.0-16.0 g/dL Hematocrit 23.3 20.6 37-47 % Mean Corpuscular Volume 90.7 91.2 80-100 fL Mean Corpuscular Hemoglobin 31.1 31.4 25-34 pg Mean Corpuscular Hemoglobin Concent 34.3 34.5 32-36 g/dl RDW Standard Deviation 47.0 47.4 36.4-46.3 fL RDW Coefficient of Variation 14.1 14.3 11.5-14.5 % Platelet Count 161 161 130-400 K/uL Mean Platelet Volume 9.7 9.2 7.4-10.4 fL Absolute Reticulocyte Count 0.06 0.02-0.10 10^6/uL Percent Reticulocyte Count 2.5 0.5-2.0 % Total Creatine Kinase 79 26-192 U/L Sodium Level 133 136-145 mmol/L Potassium Level 4.5 3.5-5.1 mmol/L Chloride Level 103 98-107 mmol/L Carbon Dioxide Level 23 21-32 mmol/L Anion Gap 7.0 3-11 mmol/L Blood Urea Nitrogen 22 7-18 mg/dl Creatinine 0.99 0.60-1.20 mg/dl Est Creatinine Clear Calc Drug Dose 46.6 ml/min Estimated GFR () 61.9 Estimated GFR (Non- 53.4 BUN/Creatinine Ratio 22.6 10-20 Random Glucose 124 70-99 mg/dl Calcium Level 8.4 8.5-10.1 mg/dl Total Bilirubin 1.7 0.2-1 mg/dl Aspartate Amino Transf (AST/SGOT) 15 15-37 U/L Alanine Aminotransferase (ALT/SGPT) 14 12-78 U/L Alkaline Phosphatase 55 45-117 U/L Total Protein 5.3 6.4-8.2 gm/dl Albumin 2.6 3.4-5.0 gm/dl Globulin 2.7 2.5-4.0 gm/dl Albumin/Globulin Ratio 1.0 0.9-2
[2017-05-13] MEDS ORDERED: DOCUSATE SODIUM 100 MG CAP PO ONE (09:45)
--- NOTE | 2017-05-13 10:12 | PROGRESS NOTE ---
DATE: 05/13/2017 CHIEF COMPLAINT: Status post IM nail of the right hip, postoperative day #3. PROGRESS: I stopped by Batsheva's room this morning ____, but she was not in the room. In speaking with the nursing, she has been doing very well. She has up and ambulating well with physical therapy. The incision looks good and there have been no complaints. We are simply dealing with postoperative anemia and waiting for that resolve. PHYSICAL EXAMINATION: The patient was not present in the room; however, she has been up and ambulating well with physical therapy. IMPRESSION: Status post IM nail of the right hip, postoperative day #3. PLAN: We will continue Lovenox 40 mg daily for 4 weeks. I will see her in my office in 2 weeks to remove the oh. She is orthopedically stable for discharge to rehab when her anemia resolves. Her current H&H is 7.1 and 20.6. She has already received 1 unit of packed red blood cells.
--- NOTE | 2017-05-13 11:19 | DIAGNOSTIC IMAGING REPORT ---
CT SCAN OF THE ABDOMEN AND PELVIS WITHOUT CONTRAST CLINICAL HISTORY: Abdominal pain. Anemia. Possible hemorrhage. COMPARISON STUDY: January 2012 TECHNIQUE: CT scan of the abdomen and pelvis was performed from the lung bases to the proximal femurs. Images are reviewed in the axial, sagittal, and coronal planes. IV contrast was not administered for this examination. A dose lowering technique was utilized adhering to the principles of ALARA. CT DOSE: 1600.93 mGy.cm FINDINGS: Lower chest: There is minimal ectasia of the lower thoracic aorta which measures 31 mm in diameter. There are right lower lobe atelectatic changes. Liver: The unenhanced liver is normal in size, contour, and attenuation. There is no intrahepatic biliary ductal dilatation. Gallbladder: Surgically absent Spleen: Normal in size and attenuation. Pancreas: Unremarkable. Adrenal glands: There is mild bilateral adrenal gland thickening Kidneys: No renal, ureteral, or bladder calculi are visualized. There is a 9 mm hyperdense left renal lesion likely representing a hyperdense cyst. Bowel: There are no transition zones to indicate bowel obstruction. There is no acute diverticulitis. The appendix appears normal. There are multiple fluid-filled bowel loops with scattered air-fluid levels. An ileus is suspected. There is a large amount of stool within the rectum which measures 73 mm. There is minimal perirectal edema. Clinical correlation regards to fecal impaction is recommended. Peritoneum: There is no intraperitoneal free air or abdominal ascites. Vasculature: The abdominal aorta is normal in course and caliber. Adenopathy: None. Pelvic viscera: The uterus appears surgically absent. Skeletal structures: There are postsurgical changes involve the right hip. There is minimal stranding and enlargement of the right iliopsoas, likely secondary to a minimal hemorrhage. There is an old L3 compression deformity. IMPRESSION: 1. Possible fecal impaction. The rectum measures 73 mm in diameter. There is minimal perirectal edema 2. No evidence of small bowel obstruction 3. No renal, ureteral, or bladder calculi identified 4. Normal appendix 5. Minimal stranding in the larger the right iliopsoas, likely secondary to minimal hemorrhage 6. Postsurgical changes involving the right hip Electronically signed by: Dwain Park M.D. 05/13/2017 11:18 AM Dictated Date/Time: 05/13/2017 11:12 AM
--- NOTE | 2017-05-13 11:23 | DIAGNOSTIC IMAGING REPORT ---
CT RIGHT FEMUR NO CONTRAST CT DOSE: CLINICAL HISTORY: Right hip pain. Anemia. Possible hemorrhage. TECHNIQUE: Helical images were acquired in the transverse plane. Sagittal and coronal reformatted images were acquired. A dose lowering technique was utilized adhering to the principles of ALARA. COMPARISON STUDY: Conventional radiographic study the right hip dated 05/10/2017 FINDINGS: There is an internally fixated intertrochanteric right hip fracture with a femoral neck nail and interlocking intramedullary alberto. There is air within the soft tissues, consistent with recent surgery. There is diffuse edema within the right thigh. There is no evidence of hardware fracture. IMPRESSION: 1. Postsurgical changes of a recent internally fixated intertrochanteric right hip fracture 2. Scattered air within the soft tissues, likely postsurgical 3. Right thigh edema. 4. No evidence of large hematoma Electronically signed by: Dwain Park M.D. 05/13/2017 11:21 AM Dictated Date/Time: 05/13/2017 11:18 AM
[2017-05-13] MEDS: ACETAMINOPHEN 325 MG TAB PO PRN ×2 (13:09→19:44)
[2017-05-13] MEDS ORDERED: LISINOPRIL 5 MG TAB PO ONE (13:30)
[2017-05-13] MEDS ORDERED: BISACODYL 10 MG SUPP PR STA (13:54)
[2017-05-13] MEDS ORDERED: BISACODYL 10 MG SUPP PR PRN (14:00)
[2017-05-13] MEDS: LOVASTATIN 20 MG TAB PO SCH (21:13)
[2017-05-13] MEDS: DOCUSATE SODIUM 100 MG CAP PO SCH (21:13)
[2017-05-13 21:32] LABS: HEMATOCRIT 23.6 % (37-47); MEAN CELL VOLUME 88.4 fL (80-100); MEAN CORPUSCULAR HEMOGLOBIN 31.1 pg (25-34); MEAN CORPUSCULAR HGB CONC 35.2 g/dl (32-36); MEAN PLATELET VOLUME 9.5 fL (7.4-10.4); PLATELET COUNT 172 K/uL (130-400); RED BLOOD COUNT 2.67 M/uL (4.2-5.4); WHITE BLOOD COUNT 10.37 K/uL (4.8-10.8)
[2017-05-14] MEDS: ENOXAPARIN 40 MG/0.4 ML SYR SQ SCH (03:14)
[2017-05-14] MEDS: ACETAMINOPHEN 325 MG TAB PO PRN ×2 (04:27→13:03)
[2017-05-14 07:18] VITALS: BP 137/74; PULSE 78; TEMP 37.1; O2SAT 96
[2017-05-14 07:41] LABS: BASO % 0.3 %; BASO ABS # 0.02 K/uL (0-0.2); EOS % 4.2 %; HEMATOCRIT 22.8 % (37-47); IG% 0.3 %; LYMPH % 9.7 %; LYMPH ABS # 0.67 K/uL (1.2-3.4); MEAN CELL VOLUME 89.4 fL (80-100); MEAN CORPUSCULAR HEMOGLOBIN 31.4 pg (25-34); MEAN CORPUSCULAR HGB CONC 35.1 g/dl (32-36); MEAN PLATELET VOLUME 9.3 fL (7.4-10.4); MONO % 11.5 %; PLATELET COUNT 182 K/uL (130-400); RED BLOOD COUNT 2.55 M/uL (4.2-5.4); WHITE BLOOD COUNT 6.88 K/uL (4.8-10.8)
[2017-05-14 07:44] LABS: BUN/CREATININE RATIO 20.8 (10-20); CALCIUM 8.2 mg/dl (8.5-10.1); CREATININE 0.76 mg/dl (0.60-1.20); MAGNESIUM 2.2 mg/dl (1.8-2.4); POTASSIUM 4.3 mmol/L (3.5-5.1)
[2017-05-14 07:47] LABS: ALB/GLOB RATIO 0.9 (0.9-2)
[2017-05-14 08:17] LABS: COMPLETE YES
[2017-05-14] MEDS ORDERED: SENNA 8.6 MG TAB PO SCH (09:00)
[2017-05-14] MEDS: LISINOPRIL 5 MG TAB PO SCH (09:07)
[2017-05-14] MEDS: DOCUSATE SODIUM 100 MG CAP PO SCH (09:07)
[2017-05-14] MEDS: LACTOBACILLUS ACIDOPHILUS (FLORANEX) TAB PO SCH (09:08)
[2017-05-14] MEDS: CHOLECALCIFEROL 1000 INTER.UNIT TAB PO SCH (09:08)
[2017-05-14] MEDS: FUROSEMIDE 20 MG TAB PO SCH (09:08)
[2017-05-14] MEDS: METOPROLOL SUCC 25MG EXT REL TAB PO SCH (09:08)
[2017-05-14] MEDS: TRIAMCINOLONE ACET 0.1% CR 15 GM TUBE EXT SCH (09:11)
--- NOTE | 2017-05-14 13:16 | Progress Note ---
Internal Med Progress Note Date of Service: May 14, 2017. Provider Documentation: SUBJECTIVE: Patient denies no complaints of discomfort. No shortness of breath. No chest pain. No abdominal pain. s/p 1 unit PRBC yesterday since Hgb was 7.1 with subsequent improvement to Hgb 8 OBJECTIVE: Exam: General- no acute distress Eyes-EOMI ENT: moist mucous membranes Neck- no JVD, trachea midline Lungs-CTABL, no wheezing Heart- regular rate Abdomen-soft, nontender, + bowel sounds Extremities- no gross edema bilaterally Neuro- alert and oriented ASSESSMENT & PLAN: This is an 82-year-old female who presents with mechanical fall and right femur fracture. Status post mechanical fall and right femur fracture. s/p surgery (Right Trochanter nail) on 05/10/17. Pain control with bowel regimen. PT/OT. Anemia: from Hgb 10 to 9 to 7.4 in the AM of 05/11/17 with repeat CBC in the afternoon on 05/11/17 stable at 7.5. However trended down to 6.6 in the AM of 05/12/17, patient s/p 1 unit PRBC with repeat Hgb at 8. AM labs on 05/13/17 with Hgb 7.1 , s/p 1 unit of PRBC on 05/13/17 with Hgb stable at 8 decline in hemoglobin secondary to fracture and combination with post-surgical blood loss no known blood in bowel movements at this time, have ordered fecal occult blood test no hemoptysis, there is no obvious bruising of lower extremities CT right lower extremity and CT abdomen/pelvis without evidence of hematoma Constipation likely due to pain medications post-op senna/colace with Miralax, suppositories History of chronic diastolic congestive heart failure secondary to mild valvular heart disease. restarted Lasix post-op Chronic kidney disease creatinine had increased from 0.83 to 1.48, PENNIE could be from diuresis with Lasix / held lisinopril / given IV fluids starting on 05/12/17 and creatinine downtrending to 0.76, can restart lisinopril Continue Lasix creatinine kinase 79 and within normal limits Hypertension. Continue Toprol-XL. can restart lisinopril Hyperlipidemia. Restarted statin after surgery Deep venous thrombosis prophylaxis: Lovenox 40 mg daily Disposition: as per orthopedics Dr. Weller: continue Lovenox 40 mg daily for likely for [address] Weller will see patient in his office in 2 weeks to remove the oh. transfer to [facility] as anemia resolved. Vital Signs: Date Time Temp Pulse Resp B/P (MAP) Pulse Ox O2 Delivery O2 Flow Rate FiO2 05/14/17 08:00 Room Air 05/14/17 07:18 37.1 78 18 137/74 (95) 96 Room Air 05/14/17 00:00 Room Air 05/13/17 23:25 37.1 88 16 116/63 (80) 98 Room Air 05/13/17 17:17 Room Air 05/13/17 15:28 37.0 82 20 152/64 (93) 97 Room Air 05/13/17 14:22 37.3 72 136/71 97 05/13/17 13:25 37.0 70 16 173/73 99 Lab Results: Results Past 24 Hours Test 05/13/17 21:03 05/14/17 06:54 Range/Units White Blood Count 10.37 6.88 4.8-10.8 K/uL Red Blood Count 2.67 2.55 4.2-5.4 M/uL Hemoglobin 8.3 8.0 12.0-16.0 g/dL Hematocrit 23.6 22.8 37-47 % Mean Corpuscular Volume 88.4 89.4 80-100 fL Mean Corpuscular Hemoglobin 31.1 31.4 25-34 pg Mean Corpuscular Hemoglobin Concent 35.2 35.1 32-36 g/dl RDW Standard Deviation 48.4 49.2 36.4-46.3 fL RDW Coefficient of Variation 14.9 15.0 11.5-14.5 % Platelet Count 172 182 130-400 K/uL Mean Platelet Volume 9.5 9.3 7.4-10.4 fL Neutrophils (%) (Auto) 74.0 % Lymphocytes (%) (Auto) 9.7 % Monocytes (%) (Auto) 11.5 % Eosinophils (%) (Auto) 4.2 % Basophils (%) (Auto) 0.3 % Neutrophils # (Auto) 5.09 1.4-6.5 K/uL Lymphocytes # (Auto) 0.67 1.2-3.4 K/uL Monocytes # (Auto) 0.79 0.11-0.59 K/uL Eosinophils # (Auto) 0.29 0-0.5 K/uL Basophils # (Auto) 0.02 0-0.2 K/uL Immature Granulocyte % (Auto) 0.3 % Immature Granulocyte # (Auto) 0.02 0.00-0.02 K/uL Red Blood Cell Morphology Unremarkable Sodium Level 134 136-145 mmol/L Potassium Level 4.3 3.5-5.1 mmol/L Chloride Level 104 98-107 mmol/L Carbon Dioxide Level 21 21-32 mmol/L Anion Gap 9.0 3-11 mmol/L Blood Urea Nitrogen 16 7-18 mg/dl Creatinine 0.76 0.60-1.20 mg/dl Est Creatinine Clear Calc Drug Dose 60.7 ml/min Estimated GFR () 85.3 Estimated GFR (Non- 73.6 BUN/Creatinine Ratio 20.8 10-20 Random Glucose 104 70-99 mg/dl Calcium Level 8.2 8.5-10.1 mg/dl Magnesium Level 2.2 1.8-2.4 mg/dl Total Bilirubin 2.1 0.2-1 mg/dl Aspartate Amino Transf (AST/SGOT) 16 15-37 U/L Alanine Aminotransferase (ALT/SGPT) 17 12-78 U/L Alkaline Phosphatase 59 45-117 U/L Total Protein 5.1 6.4-8.2 gm/dl Albumin 2.4 3.4-5.0 gm/dl Globulin 2.7 2.5-4.0 gm/dl Albumin/Globulin Ratio 0.9 0.9-2
[2017-05-14] MEDS ORDERED: MRLP17X PO (13:21)
[2017-05-14] MEDS ORDERED: CLC100 PO (13:21)
[2017-05-14] MEDS ORDERED: SNK PO (13:21)
[2017-05-14 13:29] VITALS: BP 137/74; PULSE 78; TEMP 37.1; O2SAT 96
[2017-05-14] MEDS ORDERED: LVNIS40 SQ (13:47)
--- NOTE | 2017-05-14 13:52 | Discharge Instructions ---
Discharge Instructions Date of Service May 14, 2017. Admission Reason for Admission: Right Femoral Fracture Discharge Discharge Diagnosis / Problem: Status post mechanical fall, right femur fracture, s/p surgery. anemia Discharge Goals Goal(s): Improve function, Increase independence Activity Recommendations Activity Limitations: per Instructions/Follow-up section Exercise/Sports Limitations: as tolerated Shower/Bathe: no limitations . Instructions / Follow-Up Instructions / Follow-Up This is an 82-year-old female who presents with mechanical fall and right femur fracture. Status post mechanical fall and right femur fracture. s/p surgery (Right Trochanter nail) on 05/10/17. Pain control with bowel regimen. PT/OT. Anemia: from Hgb 10 to 9 to 7.4 in the AM of 05/11/17 with repeat CBC in the afternoon on 05/11/17 stable at 7.5. However trended down to 6.6 in the AM of 05/12/17, patient s/p 1 unit PRBC with repeat Hgb at 8. AM labs on 05/13/17 with Hgb 7.1 , s/p 1 unit of PRBC on 05/13/17 with Hgb stable at 8 decline in hemoglobin secondary to fracture and combination with post-surgical blood loss no known blood in bowel movements at this time, have ordered fecal occult blood test no hemoptysis, there is no obvious bruising of lower extremities CT right lower extremity and CT abdomen/pelvis without evidence of hematoma Constipation likely due to pain medications post-op senna/colace with Miralax, suppositories History of chronic diastolic congestive heart failure secondary to mild valvular heart disease. restarted Lasix post-op Chronic kidney disease creatinine had increased from 0.83 to 1.48, PENNIE could be from diuresis with Lasix / held lisinopril / given IV fluids starting on 05/12/17 and creatinine downtrending to 0.76, can restart lisinopril Continue Lasix creatinine kinase 79 and within normal limits Hypertension. Continue Toprol-XL. can restart lisinopril Hyperlipidemia. Restarted statin after surgery Deep venous thrombosis prophylaxis: Lovenox 40 mg daily Disposition: as per orthopedics Dr. Weller: continue Lovenox 40 mg daily for likely for [address] Weller will see patient in his office in 2 weeks to remove the oh[facility]. Current Hospital Diet Patient's current hospital diet: AHA Diet (Heart Healthy) Discharge Diet Recommended Diet: AHA Diet (Heart Healthy) Procedures Procedures Performed: Right Trochn[place] Pending Studies Studies pending at discharge: no Laboratory Results 05/14/17 06:54 Red Blood Count 2.55, Mean Corpuscular Volume 89.4, Mean Corpuscular Hemoglobin 31.4, Mean Corpuscular Hemoglobin Concent 35.1, Mean Platelet Volume 9.3, Neutrophils (%) (Auto) 74.0, Lymphocytes (%) (Auto) 9.7, Monocytes (%) (Auto) 11.5, Eosinophils (%) (Auto) 4.2, Basophils (%) (Auto) 0.3, Neutrophils # (Auto ) 5.09, Lymphocytes # (Auto) 0.67, Monocytes # (Auto) 0.79, Eosinophils # (Auto ) 0.29, Basophils # (Auto) 0.02 05/14/17 06:54 Test 05/09/17 19:35 05/09/17 20:48 05/12/17 05:30 05/12/17 12:56 Prothrombin Time 10.7 SECONDS (9.0-12.0) Prothromb Time International Ratio 1.0 (0.9-1.1) Activated Partial Thromboplast Time 25.6 SECONDS (21.0-31.0) Partial Thromboplastin Ratio 1.0 Urine Color YELLOW Urine Appearance CLEAR (CLEAR) Urine pH 6.0 (4.5-7.5) Urine Specific Sumner 1.014 (1.000-1.030) Urine Protein NEG (NEG) Urine Glucose (UA) NEG (NEG) Urine Ketones NEG (NEG) Urine Occult Blood NEG (NEG) Urine Nitrite NEG (NEG) Urine Bilirubin NEG (NEG) Urine Urobilinogen NEG (NEG) Urine Leukocyte Esterase NEG (NEG) Polychromasia 1+ Absolute Reticulocyte Count 0.06 10^6/uL (0.02-0.10) Percent Reticulocyte Count 2.5 % (0.5-2.0) Test 05/12/17 15:55 05/13/17 09:41 05/13/17 10:10 05/14/17 06:54 Total Creatine Kinase 79 U/L (26-192) Direct Bilirubin 0.4 mg/dl (0-0.2) Stool Occult Blood NEGATIVE (NEGATIVE) White Blood Count 6.88 K/uL (4.8-10.8) Red Blood Count 2.55 M/uL (4.2-5.4) Hemoglobin 8.0 g/dL (12.0-16.0) Hematocrit 22.8 % (37-47) Mean Corpuscular Volume 89.4 fL (80-100) Mean Corpuscular Hemoglobin 31.4 pg (25-34) Mean Corpuscular Hemoglobin Concent 35.1 g/dl (32-36) Platelet Count 182 K/uL (130-400) Mean Platelet Volume 9.3 fL (7.4-10.4) Neutrophils (%) (Auto) 74.0 % Lymphocytes (%) (Auto) 9.7 % Monocytes (%) (Auto) 11.5 % Eosinophils (%) (Auto) 4.2 % Basophils (%) (Auto) 0.3 % Neutrophils # (Auto) 5.09 K/uL (1.4-6.5) Lymphocytes # (Auto) 0.67 K/uL (1.2-3.4) Monocytes # (Auto) 0.79 K/uL (0.11-0.59) Eosinophils # (Auto) 0.29 K/uL (0-0.5) Basophils # (Auto) 0.02 K/uL (0-0.2) RDW Standard Deviation 49.2 fL (36.4-46.3) RDW Coefficient of Variation 15.0 % (11.5-14.5) Immature Granulocyte % (Auto) 0.3 % Immature Granulocyte # (Auto) 0.02 K/uL (0.00-0.02) Red Blood Cell Morphology Unremarkable Anion Gap 9.0 mmol/L (3-11) Est Creatinine Clear Calc Drug Dose 60.7 ml/min Estimated GFR () 85.3 Estimated GFR (Non- 73.6 BUN/Creatinine Ratio 20.8 (10-20) Calcium Level 8.2 mg/dl (8.5-10.1) Magnesium Level 2.2 mg/dl (1.8-2.4) Total Bilirubin 2.1 mg/dl (0.2-1) Aspartate Amino Transf (AST/SGOT) 16 U/L (15-37) Alanine Aminotransferase (ALT/SGPT) 17 U/L (12-78) Alkaline Phosphatase 59 U/L (45-117) Total Protein 5.1 gm/dl (6.4-8.2) Albumin 2.4 gm/dl (3.4-5.0) Globulin 2.7 gm/dl (2.5-4.0) Albumin/Globulin Ratio 0.9 (0.9-2) Medical Emergencies . Who to Call and When: Medical Emergencies: If at any time you feel your situation is an emergency, please call 911 immediately. . Non-Emergent Contact Non-Emergency issues call your: Primary Care Provider . . "Provider Documentation" section prepared by Jann Mandujano. . VTE Core Measure Inpt VTE Proph given/why not?: Enoxaparin (Lovenox)SQ
--- NOTE | 2017-05-14 13:53 | Discharge Summary ---
Discharge Summary Date of Service May 14, 2017. Discharge Summary Admission Date: May 09, 2017 at 21:42 Discharge Date: May 14, 2017 Discharge Disposition: Rehab ([facility]) Principal Diagnosis: Status post mechanical fall, right femur fracture, s/p surgery. anemia Medication Reconciliation New Medications: Docusate Sodium (Docusate Sodium) 100 Mg Cap 100 MG PO BID for 30 Days, #60 CAP Enoxaparin (Enoxaparin Sodium) 40 Mg/0.4 Ml Inj 40 MG SQ Q24H for 28 Days, #28 UNITS Polyethylene (Miralax) 17 Gm Pow 17 GM PO DAILY PRN for Constipation for 30 Days, #510 GM Senna (Senna Lax) 8.6 Mg Tab 8.6 MG PO QAM for 30 Days, #30 TAB Continued Medications: Aspirin Enteric Coated (Ecotrin Or Generic) 81 Mg Tab 81 MG PO Q2D, 0 Refills Cholecalciferol (Vitamin D 1000 Unit) 1,000 Unit Cap 1000 INTER.UNIT PO DAILY Furosemide (Lasix) 20 Mg Tab 20 MG PO QAM, TAB Lactobacillus Acidophilus (Lactinex) Tab 1 TAB PO DAILY, TAB Lisinopril (Zestril) 5 Mg Tab 5 MG PO DAILY, TAB Lovastatin (Mevacor) 20 Mg Tab 20 MG PO HS, 0 Refills Metoprolol Succ (Toprol Xl) (Toprol-Xl) 25 Mg Tabcr 12.5 MG PO DAILY, #30 TAB Triamcinolone Acet (Aristocort 0.1%) 90 Appln/30 Gm Cr 1 APPLN TOP BID START 05/02/17 FOR 3 WEEKS Admission Information HPI (per Admitting provider): CHIEF COMPLAINT: Status post fall and right hip fracture. HISTORY OF PRESENT ILLNESS: This is an 82-year-old female with past medical history significant for hypertension, chronic kidney disease stage III, polymyalgia rheumatica, gout arthropathy status post prosthetic aortic valve replacement, history of osteoarthrosis, presents with mechanical fall. The patient states she lives in a senior apartment around [facility] and she was out with her friends when she slipped and had a mechanical fall and she could not get up and her friends called the ambulance and was brought in here and found to have right hip fracture.says she was in lot of pain but currently patient is resting and pain is under control. Denies any loss of consciousness. Apparently, the patient was doing okay until this episode happened. Denies any headaches, no blurred vision, no dizziness. No cough. No sore throat or difficulty swallowing. No chest pain, no shortness of breath, no nausea, no vomiting, no abdominal pain. Appetite is okay. Normal bowel and bladder movements. No blood in the stools, no black stools, no blood in the urine. No skin rash, has chronic lower extremity edema. The patient says she can ambulate okay about 1-2 blocks without any problem. Climbing uphill makes her somewhat short of breath. Currently resting comfortably and hemodynamically stable. Physical Exam (per Admitting): PHYSICAL EXAMINATION: GENERAL: The patient is old and frail, not in distress. VITAL SIGNS: Temperature 36.8, pulse 68, respiratory rate 18, blood pressure 172/95, oxygen 99% room air. HEENT: No pallor, no icterus. Pupils equal, round, and reactive to light. NECK: No JVD or neck masses, no carotid bruits. CARDIOVASCULAR: S1, S2 heard, regular rate and rhythm, no aortic murmur in aortic area heard. RESPIRATORY SYSTEM: Normal AP diameter. No accessory muscle use. No wheezing, no crackles. ABDOMEN: Soft, bowel sounds present. Nontender. No distention. CENTRAL NERVOUS SYSTEM: II-XII grossly intact. Nonfocal. EXTREMITIES: Right lower extremity is shortened and externally rotated. Bilateral lower extremity chronic edema present. Hospital Course This is an 82-year-old female who presents with mechanical fall and right femur fracture. Status post mechanical fall and right femur fracture. s/p surgery (Right Trochanter nail) on 05/10/17. Pain control with bowel regimen. PT/OT. Anemia: from Hgb 10 to 9 to 7.4 in the AM of 05/11/17 with repeat CBC in the afternoon on 05/11/17 stable at 7.5. However trended down to 6.6 in the AM of 05/12/17, patient s/p 1 unit PRBC with repeat Hgb at 8. AM labs on 05/13/17 with Hgb 7.1 , s/p 1 unit of PRBC on 05/13/17 with Hgb stable at 8 decline in hemoglobin secondary to fracture and combination with post-surgical blood loss no known blood in bowel movements at this time, have ordered fecal occult blood test no hemoptysis, there is no obvious bruising of lower extremities CT right lower extremity and CT abdomen/pelvis without evidence of hematoma Constipation likely due to pain medications post-op senna/colace with Miralax, suppositories History of chronic diastolic congestive heart failure secondary to mild valvular heart disease. restarted Lasix post-op Chronic kidney disease creatinine had increased from 0.83 to 1.48, PENNIE could be from diuresis with Lasix / held lisinopril / given IV fluids starting on 05/12/17 and creatinine downtrending to 0.76, can restart lisinopril Continue Lasix creatinine kinase 79 and within normal limits Hypertension. Continue Toprol-XL. can restart lisinopril Hyperlipidemia. Restarted statin after surgery Deep venous thrombosis prophylaxis: Lovenox 40 mg daily Disposition: as per orthopedics Dr. Weller: continue Lovenox 40 mg daily for likely for [address] Weller will see patient in his office in 2 weeks to remove the oh. [facility]. Total time spent on discharge = This includes examination of the patient, discharge planning, medication reconciliation, and communication with other providers. Discharge Instructions see above
== END 2017-05-14 15:37 | DRG 481 ==
LOC: EDBD 19:20 → C.EDB 19:24 → C.MSW 21:42 → ENRESERV 21:52
PROVIDERS: ADMIT Hospitalist; ATTEND Hospitalist
PROC: 0T9B70Z Drainage of Bladder with Drainage Device, Via Natural or Artificial Opening (ICD-10-PCS; 2017-05-09)
PROC: 0QS606Z Reposition Right Upper Femur with Intramedullary Internal Fixation Device, Open Approach (ICD-10-PCS; principal; 2017-05-10 07:30)
DX: S72.141A Displaced intertrochanteric fracture of right femur, initial encounter for closed fracture (principal); I13.0 Hypertensive heart and chronic kidney disease with heart failure and stage 1 through stage 4 chronic kidney disease, or unspecified chronic kidney disease; I50.32 Chronic diastolic (congestive) heart failure; W01.0XXA Fall on same level from slipping, tripping and stumbling without subsequent striking against object, initial encounter; D64.9 Anemia, unspecified; N18.3 Chronic kidney disease, stage 3 (moderate); E78.5 Hyperlipidemia, unspecified; K59.03 Drug induced constipation; T39.95XA Adverse effect of unspecified nonopioid analgesic, antipyretic and antirheumatic, initial encounter; Y99.8 Other external cause status; Z95.2 Presence of prosthetic heart valve; Z87.891 Personal history of nicotine dependence; Z90.49 Acquired absence of other specified parts of digestive tract; Z90.710 Acquired absence of both cervix and uterus; Z79.82 Long term (current) use of aspirin; Z79.899 Other long term (current) drug therapy; Z88.8 Allergy status to other drugs, medicaments and biological substances; Z82.3 Family history of stroke; Z80.0 Family history of malignant neoplasm of digestive organs; Z80.2 Family history of malignant neoplasm of other respiratory and intrathoracic organs

== ENCOUNTER → 2017-06-21 | Outpatient (CLI) | payer OTHER, MEDICARE ==
[~2017-06-21] MED LIST changes: -ATV5 PO; -CLBCRM30 EXT; +CLC100 PO; -CLX20 PO; +FURO-85 PO; -FURO20TA PO; +LCTX PO; +LISI-729 PO; +LVNIS40 SQ; +METO25TA3 PO; -METO50TA7 PO; -METR0.754; +MRLP17X PO; -PRED-301 PO; +SNK PO; -SPIR25TA PO; +TRMCR130WC TOP; -prolia SC; -uloric PO
--- NOTE | 2017-06-21 14:26 | DIAGNOSTIC IMAGING REPORT ---
VIDEO SWALLOW CLINICAL HISTORY: 82 years-old Female with COUGH,ORAL PHARANEGEAL DYSPHAGIA. Acute cough with dysphagia TECHNIQUE: Video fluoroscopic evaluation of swallowing was performed in the AP and lateral projections by the speech pathology staff. The patient is fed nectar-thick and thin liquid barium, a barium coated wafer, and barium pudding. FLUOROSCOPY TIME: 3.4 minutes. COMPARISON STUDY: Chest radiograph 05/09/2017. FINDINGS: Silent aspiration noted with thin liquid barium and also with nectar thick liquids. Trace silent aspiration noted with pudding consistency. Additionally, considerable amount of residual noted within the vallecula and piriform sinuses with pudding consistency. Delayed oral phase of swallowing noted. Atherosclerosis of the aorta. Multilevel advanced degenerative changes of the cervical spine. IMPRESSION: 1. Silent aspiration with thin, nectar thick and pudding consistencies. 2. Please see the speech pathologist report for detailed findings and recommendations. Electronically signed by: Alejandro Noonan M.D. 06/21/2017 2:24 PM Dictated Date/Time: 06/21/2017 2:20 PM
--- NOTE | 2017-06-21 16:02 | SWALLOWING EVALUATION ---
HISTORY: This 82 year old woman was referred for a video swallow study at [facility] in order to rule out aspiration and identify the safest consistencies for optimal oral intake. The patient was very anxious and concerned about her swallowing and has lost weight. She reports that she has episodes of coughing and choking with both solids and liquids, and often coughs food back up. She lives alone and stated she has been pureeing all of her food, and drinking thickened liquids. The patient stated she has not had any recent pneumonia. She has never participated in dysphagia therapy. Per her report, she is uncertain as to what is causing her swallowing difficulties and they have been occurring for several weeks. PMH is significant for HTN, CKD Stage III, polymyalgia rheumatic, OA. She also had recent surgery s/p fall and right femur fracture. She is able to ambulate with a rolling walker. PROCEDURE: The patient was seen in the Radiology Department of [facility] for the VFSS. Cursory examination of the oral cavity revealed the patient to have an upper plate and a lower partial that fit well. Movement of the articulators was wnl. Speech was clear. Vocal quality was hoarse. The patient was seated on a stool and was viewed in both the Anterior-Posterior (A-P) and Lateral planes. Volitional phonation exercises completed in the A-P plane revealed bilateral vocal fold movement and vocal intensity was judged to be low. In the lateral plane, the patient was given the following boluses: 1 tsp. thin liquid barium x 2, single swallow thin liquid barium self-presented from a cup x1, 1 tsp. nectar-thick liquid barium, single swallow nectar-thick liquid barium self-presented from a cup x2 (one with a chin tuck), and 1 tsp. barium pudding. The patient was then repositioned into the A-P plane and completed an esophageal scan without administering barium, due to safety concerns. RESULTS: Oral Stage: Lip closure was adequate. The patient was able to maintain a cohesive liquid bolus upon command. Mastication was slow. Lingual motion for bolus transport was repetitive and disorganized, more so when a chin tuck was utilized. There was retention along the tongue and palate after the initial swallow. The initiation of the pharyngeal swallow was delayed and triggered when the bolus head reached the pyriforms. Pharyngeal Stage: Soft palate elevation was complete. Laryngeal elevation revealed partial superior movement of the thyroid cartilage and partial approximation of the arytenoids to the epiglottic base. Anterior hyoid excursion was partially reduced. Epiglottic deflection was incomplete as at times inversion did not progress past the horizontal position, or did not invert at all. Laryngeal vestibular closure was incomplete, with a narrow column of contrast located in the vestibule at the height of the swallow. The pharyngeal stripping wave was absent. Pharyngeal contraction was not assessed due to safety concerns. There was minimal distention and duration to the opening of the pharyngoesophageal segment (PES). Tongue base retraction was reduced, with a wide column of contrast located between the tongue base and pharyngeal wall during the swallow. There was diffuse retention located along the tongue base, in the valleculae, along the posterior pharyngeal wall, along the laryngeal aspect of the epiglottis, and in the pyriforms after the swallow. There was evidence of laryngeal penetration and SILENT aspiration of all consistencies administered for this study before and during the swallow. There was SILENT aspiration noted with attempts to clear pharyngeal retention when she would re-swallow. The patient required 5+ swallows per bolus given, regardless of bolus size (worsening to over 8 swallows with items of increased texture). A cough reflex was not effective to fully clear the aspiration. Cues were required to produce a cough. When a chin tuck was used, there was improved airway protection and PES opening was wider. There was no aspiration of nectar thick liquids when the chin tuck was used. With the pudding, a majority of the bolus remained throughout the pharynx and did not fully clear despite chin tuck, effortful swallowing, and a liquid wash. Further testing with any solid boluses such a cracker was not completed due to safety concerns. Overall, the patient presents with a significantly delayed swallow, and a significantly weakened swallow. In addition, the PES opening is minimal and only very small amounts of each bolus passes through the PES and into the esophagus with each swallow. Patient's attempts at using multiple swallows to clear also result in increased fatigue and reduced appetite. This is likely contributing to her weight loss as well. Esophageal Stage: And esophageal scan was completed in the A-P position without administering barium, again, due to safety concerns. There was complete clearance of boluses administered in the lateral plane. There is a suspected prominent cricopharyngeus impression indicative of possible reflux/esophageal dysmotility. SUMMARY/RECOMMENDATIONS: The patient presents with severe laura-pharyngeal dysphagia. She also presents with signs and symptoms of suspected esophageal dysfunction. She is a HIGH risk for aspiration and aspiration pneumonia. The etiology of this patient's dysphagia is uncertain. At this point, as the patient is active and has not had any pneumonia, is it suspected she is tolerating the aspiration at this point. Therefore, the following is recommended: 1. Full liquid diet, [place] thick. May have loose, moist pureed foods as tolerated (i.e., cream of wheat, applesauce, etc). Complete a chin tuck with all p.o. intake (small sip/bite, hold food or liquid in the mouth, tuck chin to chest, swallow multiple times with chin down). 2. STRICT Aspiration and GERD precautions. Fully upright for meals and for 30 minutes after meals. Do not lay flat, elevate head of the bed to at least 30 degrees at all time, to include while sleeping. 3. Stringent oral care to include brushing all surfaces of the mouth and tongue prior to and after meals, and prior to bed, to reduce oral bacteria that can be aspirated in saliva. 4. Patient would benefit from dysphagia therapy CORNEL for general pharyngeal strengthening exercises to improve swallowing strength and function, and carryover of safe swallow strategies. Would recommend a repeat video swallow in 4-6 weeks as appropriate to determine progress pending progress in therapy. 5. Consider a GI consult CORNEL due to esophageal dysfunction and limited PES opening. May benefit from further testing such as an EGD as appropriate. 6. Consider Nutrition and ENT consults, due to weight loss and persistent hoarse vocal quality. 7. PCP follow up as soon as possible. Results and recommendations were discussed with the patient and her sister Kelly (with patient permission) immediately following the study. The patient appeared to be very overwhelmed with the results of the study. Results were reviewed several times with both the patient and her sister, and despite this, the patient tended to repeat similar questions numerous times. In the end, she appeared to understand but this is uncertain. Sister was with verbal understanding to all of the above. As the etiology of the patient's dysphagia is uncertain, a Neurological consult may be of benefit as appropriate. Another concern is this patient being able to maintain her nutrition and hydration needs by mouth alone. She has been losing weight despite drinking Boost. Alternative means of nutrition and hydration may also need to be discussed with the patient's PCP. The PCP's office was also contacted following the study with patient permission. Spoke with Erendira at Dr. Nathaly Larkin's office with results with verbal understanding and this report is to be faxed to her office. Thank you for referral of this patient. Please contact me at if any additional information is needed.
== END | disposition home or self-care (01) ==
LOC: C.RAD 12:46
PROVIDERS: ATTEND Internal Medicine
DX: R05 Cough (principal); R13.12 Dysphagia, oropharyngeal phase

== ENCOUNTER → 2017-07-06 | Day surgery (SDC) | payer OTHER, MEDICARE ==
[~2017-07-06] VITALS: Ht 172.7 cm; Wt 78.2 kg
[~2017-07-06] MED LIST changes: +PROPOFOL IV EMULSION 10 MG/ML 20 ML VIAL IV ONE; +RANI300T2 PO
[2017-07-06 11:13] VITALS: Ht 172.7 cm; Wt 78.2 kg
--- NOTE | 2017-07-06 11:42 | Endo History and Physical ---
History & Physical Date of Service: Jul 06, 2017. Chief Complaint: dysphaiga; chronic cough Referring Physician: Dr. Larkin History of Present Illness dysphagia Past Surgical History Hx Cardiac Surgery: No Hx Internal Defibrillator: No Hx Pacemaker: No Hx Abdominal Surgery: Yes Hx of Implantable Prosthesis: No Hx Post-Op Nausea and Vomiting: No Hx Cancer Surgery: Yes Hx Thoracic Surgery: No Hx Orthopedic: Yes Hx Urinary Tract Surgery: Yes Family History None Social History Smoking Status: Former Smoker Hx Substance Use: No Hx Alcohol Use: Yes Allergies Coded Allergies: Allopurinol (Unverified Allergy, Intermediate, RASH, 05/30/12) Cephalosporins (Verified Allergy, Unknown, 05/09/17) Current Medications Reported Home Medications Medications Dose Route/Sig Max Daily Dose Days Date Category Dose Instructions Enoxaparin Sodium (Enoxaparin) 40 Mg/0.4 Ml Inj 40 Mg SQ Q24H 28 05/14/17 Rx Miralax (Polyethylene) 17 Gm Pow 17 Gm PO DAILY PRN 30 05/14/17 Rx Senna Lax (Senna) 8.6 Mg Tab 8.6 Mg PO QAM 30 05/14/17 Rx Docusate Sodium 100 Mg Cap 100 Mg PO BID 30 05/14/17 Rx Lactinex (Lactobacillus Acidophilus) Tab 1 Tab PO DAILY 05/09/17 Reported Zestril (Lisinopril) 5 Mg Tab 5 Mg PO DAILY 05/09/17 Reported Lasix (Furosemide) 20 Mg Tab 20 Mg PO QAM 05/09/17 Reported Toprol-Xl (Metoprolol Succinate) 25 Mg Tabcr 12.5 Mg PO DAILY 05/09/17 Reported Aristocort 0.1% (Triamcinolone Acet) 90 Appln/30 Gm Cr 1 Appln TOP BID 05/09/17 Reported START 05/02/17 FOR 3 WEEKS Ecotrin Or Generic (Aspirin) 81 Mg Tab 81 Mg PO Q2D 11/18/11 Reported Vitamin D 1000 Unit (Cholecalciferol) 1,000 Unit Cap 1,000 Inter.unit PO DAILY 11/18/11 Reported Mevacor (Lovastatin) 20 Mg Tab 20 Mg PO HS 11/18/11 Reported Vital Signs Weight (Kilograms): 78.18 Height (Feet): 5 Height (Inches): 8 Date Time Temp Pulse Resp B/P (MAP) Pulse Ox O2 Delivery O2 Flow Rate FiO2 07/06/17 11:26 36.5 73 16 120/66 (84) 97 Room Air Physical Exam General Appearance: WD/WN, no apparent distress Assessment and Plan EGD with possible dilation today
--- NOTE | 2017-07-06 12:11 | Discharge Instructions ---
Endoscopy Patient Instructions Date / Procedure(s) Performed Jul 06, 2017. EGD Allergy Information Coded Allergies: Allopurinol (Unverified Allergy, Intermediate, RASH, 05/30/12) Cephalosporins (Verified Allergy, Unknown, 05/09/17) Discharge Date / Findings Jul 06, 2017. schatzki ring - dilated Medication Instructions Restart Stopped Medication(s): OK to resume all home medications. Trial of once daily omeprazole instead of the Zantac (ranitidine) Provider Instructions Activity Restrictions - No exercising or heavy lifting for 24 hours. - Do not drink alcohol the day of the procedure. - Do not drive a car or operate machinery until the day after the procedure. - Do not make any important decisions or sign important papers in 24 hours after the procedure. Following Day: - Return to full activity which may include returning to work/school. Diet Start your diet with liquids and light foods (jello, soup, juice, toast). Then eat your usual diet if not nauseated. Treatment For Common After Affects For mild abdominal pain, bloating, or excessive gas: - Rest - Eat lightly - Lie on right side Follow-Up Information Follow-up with Dr. Larkin as scheduled Anesthesia Information What You Should Know You have had a procedure that required some medicine to reduce anxiety and discomfort. This treatment is called moderate sedation. After receiving the treatment, you may be sleepy, but you will be able to breathe on your own. The effects of the treatment may last for several hours. Follow these instructions along with Activity/Diet recommendations noted above: * Do NOT do anything where dizziness or clumsiness would be dangerous. * Rest quietly at home today, then you can be up and about tomorrow. * Have a responsible person stay with you the rest of today. * You may have had an I.V. today. If so, you may take the dressing off later today. Recommendations Call your doctor if: * Trouble breathing * Continuous vomiting for more than 24 hours * Temperature above 101 degrees * Severe abdominal pain or bloating * Pain not relieved by pain medicine ordered * There is increased drainage or redness from any incision * A large amount of rectal bleeding greater than 2-3 tablespoons. (If you had a polyp/s removed or have hemorrhoids, a small amount of blood - from the rectum is to be expected.) * You have any unanswered questions or concerns. IN THE EVENT OF A SERIOUS EMERGENCY, GO TO THE NEAREST EMERGENCY ROOM Your discharge instructions were prepared by provider Elsa Caraballo. Patient Instructions Signature Page Batsheva Dumas Patient (or Guardian) Signature/Date: I have read and understand the instructions given to me by my caregivers. Caregiver/RN/Doctor Signature/Date: The above-named patient and/or guardian has received patient instructions on this date. + Original Patient Signature Page (only) stays with chart. Please make copy for patient.
--- NOTE | 2017-07-06 12:16 | GI REPORT ---
Procedure Date: 07/06/2017 12:00 PM Procedure: Upper GI endoscopy Indications: Dysphagia Medicines: Propofol per Anesthesia Complications: No immediate complications. Estimated blood loss: Minimal. Estimated Blood Loss: Estimated blood loss was minimal. Procedure: Pre-Anesthesia Assessment: - Prior to the procedure, a History and Physical was performed, and patient medications, allergies and sensitivities were reviewed. The patient's tolerance of previous anesthesia was reviewed. - The risks and benefits of the procedure and the sedation options and risks were discussed with the patient. All questions were answered and informed consent was obtained. - Patient identification and proposed procedure were verified prior to the procedure by the physician and the nurse. The procedure was verified in the pre-procedure area in the procedure room. - Mental Status Examination: alert and oriented. Airway Examination: normal oropharyngeal airway and neck mobility. Respiratory Examination: clear to auscultation. CV Examination: normal. Abdominal Examination: bowel sounds present, abdomen soft and non-tender, no masses or organomegaly noted. - ASA Grade Assessment: III - A patient with severe systemic disease. After obtaining informed consent, the endoscope was passed under direct vision. Throughout the procedure, the patient's blood pressure, pulse, and oxygen saturations were monitored continuously. The scope was introduced through the mouth, and advanced to the second part of duodenum. The upper GI endoscopy was accomplished without difficulty. The patient tolerated the procedure well. Findings: A non-obstructing Schatzki ring (acquired) was found in the lower third of the esophagus. A guidewire was placed and the scope was withdrawn. Dilation was performed with a Savary dilator with mild resistance at 54 Fr. Estimated blood loss was minimal. The stomach was normal. The examined duodenum was normal. Impression: - Non-obstructing Schatzki ring. Dilated. - Normal stomach. - Normal examined duodenum. - No specimens collected. Recommendation: - Follow an antireflux regimen. - Use Prilosec (omeprazole) 20 mg PO daily for 6 weeks to see if this helps. OK to stop the Zantac (ranitidine) - Repeat the upper endoscopy PRN for retreatment. - Return to primary care physician as previously scheduled. - Discharge patient to home. Elsa Caraballo D.O. Elsa Caraballo, 07/06/2017 12:16:16 PM This report has been signed electronically. Note Initiated On: 07/06/2017 12:00 PM I attest to the content of the Intraoperative Record and orders documented therein, exceptions below
[2017-07-06 12:50] VITALS: BP 151/72; PULSE 64; O2SAT 100
--- NOTE | 2017-07-06 13:38 | Anesthesiology Progress Note ---
Anesthesia Post Op Note Date & Time Jul 06, 2017 at 13:38 Vital Signs Pain Intensity: 0 Vital Signs Past 12 Hours Date Time Temp Pulse Resp B/P (MAP) Pulse Ox O2 Delivery O2 Flow Rate FiO2 07/06/17 12:50 64 12 151/72 (98) 100 Room Air 07/06/17 12:35 61 12 128/68 (88) 100 Room Air 07/06/17 12:20 62 12 134/62 (86) 100 Room Air 07/06/17 11:26 36.5 73 16 120/66 (84) 97 Room Air Notes Mental Status: alert / awake / arousable, participated in evaluation Pt Amnestic to Procedure: Yes Nausea / Vomiting: adequately controlled Pain: adequately controlled Airway Patency, RR, SpO2: stable & adequate BP & HR: stable & adequate Hydration State: stable & adequate Anesthetic Complications: no major complications apparent
== END | disposition home or self-care (01) ==
LOC: C.GI 10:36
PROVIDERS: ATTEND Internal Medicine
DX: R13.10 Dysphagia, unspecified (principal); K22.2 Esophageal obstruction; N18.3 Chronic kidney disease, stage 3 (moderate); M19.90 Unspecified osteoarthritis, unspecified site; Z85.9 Personal history of malignant neoplasm, unspecified; I12.9 Hypertensive chronic kidney disease with stage 1 through stage 4 chronic kidney disease, or unspecified chronic kidney disease

== ENCOUNTER 2019-09-27 22:49 | Inpatient (IN) ==
[2019-09-27] MEDS ORDERED: STAT IV Infusion **Titration per Protocol STA (23:01)
[2019-09-27 23:02] LABS: Hematocrit (blood only) 36.6 % (37-47); Hemoglobin 12.3 g/dL (12.0-16.0); Mean Corpuscular Hemoglobin 32.1 pg (25-34); Mean Corpuscular Hgb Conc 33.6 g/dL (32-36); Mean Corpuscular Volume 95.6 fL (80-100); Mean Platelet Volume 9.7 fL (7.4-10.4); Platelet Count 200 K/uL (130-400); RDW Coefficient of Variation 13.7 % (11.5-14.5); RDW Standard Deviation 47.7 fL (36.4-46.3); Red Blood Count 3.83 M/uL (4.2-5.4); White Blood Count 7.57 K/uL (4.8-10.8)
[2019-09-27] MEDS ORDERED: NITROGLYCERIN SL 0.4 MG/TAB TAB SL STA (23:02)
--- NOTE | 2019-09-27 23:03 | XRay Report ---
XR chest 1V portable CLINICAL HISTORY: 84 years-old Female presenting with shortness of breath. TECHNIQUE: Portable upright AP view of the chest was obtained. COMPARISON: 05/09/2017. FINDINGS: Median sternotomy wires and prosthetic aortic valve. Atherosclerosis of the aortic arch. Cardiac silh ouette top normal in size. Lungs are hyperinflated. Significant heterogeneity lung parenchyma. Minima l nodular right basilar opacity. No pleural effusion or pneumothorax. Osteopenia suspected. Degenerat ivelisse changes of the spine. IMPRESSION: 1. Minimal nodular right basilar atelectasis or scarring may be present. Consider PA and lateral vie ws for better assessment. 2. Underlying emphysema. 3. Borderline cardiomegaly. ACT 112: Negative or not required by law. Electronically signed by: Justin Rae M.D. 09/27/2019 11:01 PM
[2019-09-27 23:08] LABS: Base Excess VBG -2.3 mEq/L; HCO3 VBG 25 mmol/L; PCO2 VBG 55 mmHg (38-50); PO2 VBG 31 mmHg; pH VBG 7.28 (7.36-7.41)
[2019-09-27 23:09] LABS: Oxygen Saturation VBG < 60.0 %
[2019-09-27 23:12] LABS: Partial Thromboplastin Ratio 0.9; Partial Thromboplastin Time 26.2 Seconds (21.0-31.0)
[2019-09-27] MEDS ORDERED: NITROGLYCERIN/D5W 100MCG/ML 250 ML IV SCH (23:15)
[2019-09-27 23:18] LABS: Alanine Aminotransferase 17 U/L (12-78); Albumin Level 3.8 gm/dl (3.4-5.0); Aspartate Aminotransferase 21 U/L (15-37); BUN Creatinine Ratio 18.8 (10-20); Bilirubin Direct < 0.1 mg/dl (0-0.2); Blood Urea Nitrogen 18 mg/dl (7-18); Calcium 9.2 mg/dl (8.5-10.1); Carbon Dioxide 24 mmol/L (21-32); Chloride 99 mmol/L (98-107); Est GFR (African American) 64.2; Est GFR (Non-African American) 55.4; Glucose 146 mg/dl (70-99); Lipase 90 U/L (73-393); Potassium 4.2 mmol/L (3.5-5.1); Sodium 132 mmol/L (136-145)
[2019-09-27 23:35] LABS: Appearance Urine Clear (Clear); Bacteria Urine Automated Negative (Negative); Bilirubin Urine Negative (Negative); Blood Urine Negative (Negative); Color Urine Yellow; Epithelial Cell Urine Auto 0-5 /lpf (0-5); Glucose Urine UA Negative (Negative); Ketones Urine Negative (Negative); Leukocyte Esterase Urine Negative (Negative); Nitrite Urine Negative (Negative); Protein Urine 1+ (Negative); RBC Urine Automated 0-4 /hpf (0-4); Urobilinogen Urine Negative (Negative); pH Urine 6.5 (4.5-7.5)
[2019-09-27 23:47] LABS: Basophils # (auto) 0.02 K/uL (0-0.2); Basophils % (auto) 0.3 %; Eosinophils # (auto) 0.52 K/uL (0-0.5); Eosinophils % (auto) 6.9 %; Immature Granulocytes # (auto) 0.01 K/uL (0.00-0.02); Immature Granulocytes % (auto) 0.1 %; Lymphocytes # (auto) 1.41 K/uL (1.2-3.4); Lymphocytes % (auto) 18.6 %; Monocytes % (auto) 7.9 %; Neutrophils # (auto) 5.01 K/uL (1.4-6.5); Neutrophils % (auto) 66.2 %
[2019-09-27 23:50] LABS: Influenza A virus by PCR Neg for Influ A (Neg); Influenza B virus by PCR Neg for Influ B (Neg)
[2019-09-28 00:03] LABS: Alkaline Phosphatase 91 U/L (45-117); Bilirubin,Total 0.9 mg/dl (0.2-1); NT Pro B Type Natriuretic Pept 5806 pg/ml (0-1800); Total Protein 7.9 gm/dl (6.4-8.2); Troponin I 0.161 ng/ml (0-0.045)
[2019-09-28] MEDS ORDERED: NITROGLYCERIN 2% OINTMENT 30GM TUBE ONE (00:06)
[2019-09-28] MEDS ORDERED: NITROGLYCERIN 2% OINTMENT 30GM TUBE EXT SCH (00:15)
[2019-09-28] MEDS ORDERED: FUROSEMIDE 40 MG/4 ML VIAL IV STA (00:16)
--- NOTE | 2019-09-28 00:31 | Emergency Department Note ---
Entered by Stella Montiel acting as a scribe for Surjit Jiménez History of Present Illness General Chief complaint: Shortness of Breath/Dyspnea Stated complaint: SOB Source: patient and EMS Mode of arrival: EMS History of Present Illness Provider complaint: shortness of breath Onset (ago): hour(s) ([employer]) Location: chest Relieved By: + none Exacerbated By: + none Associated symptoms: + fever/chills The patient is a 84 year old female who presents to the Emergency Room with complaints of shortness of breath which started prior to arrival. Per EMS, the patient is a resident at [facility]. They note that the patient was at baseline this evening. They state that the patient ate dinner and went to lay down where she developed respiratory distress. They state that the patient's initial O2 stat was 80% on room air and was febrile at 99. They mention that the patient was placed on BiPAP on the way over and was placed on a nitroglycerine drip. They report that the patient has a history of hypertension. They deny any history of CHF. The patient denies any chest pain. She reports that her breathing has not improved since being on BiPAP. The patient mentions that she is a former smoker. Home Medications Home Medications Medication Instructions Recorded Confirmed Type aspirin [Aspirin Low Dose] 81 mg PO DAILY 06/11/18 09/27/19 History cholecalciferol (vitamin D3) 1,000 unit PO DAILY 06/11/18 09/27/19 History docusate sodium 100 mg PO BID 06/11/18 09/27/19 History furosemide 20 mg PO DAILYBB 06/11/18 09/27/19 History lisinopril 5 mg PO DAILY 06/11/18 09/27/19 History metoprolol succinate 12.5 mg PO DAILY 06/11/18 09/27/19 History acetaminophen [Acetaminophen Extra 500 mg PO Q4 PRN MDD 3 GRAMS/24 07/29/18 09/27/19 History Strength] HOURS amoxicillin 2,000 mg PO DAILY PRN 07/29/18 09/27/19 History ferrous sulfate 325 mg PO BID 07/29/18 09/27/19 History alum-mag hydroxide-simeth 10 - 20 ml PO QID PRN 09/27/19 09/27/19 History [Antacid-Simethicone] dextromethorphan-guaifenesin 1 tab PO Q12H PRN 09/27/19 09/27/19 History [Mucinex DM] dimethicone-zinc oxide [Rosemarie 1 applic TOPICAL DAILY PRN 09/27/19 09/27/19 History Protect] fexofenadine 180 mg PO DAILY 09/27/19 09/27/19 History hydrocortisone 1 applic TOPICAL DIRECTED PRN 09/27/19 09/27/19 History omeprazole 20 mg PO DAILY 09/27/19 09/27/19 History oxybutynin chloride 5 mg PO DAILY 09/27/19 09/27/19 History sennosides 8.6 mg PO DAILY PRN 09/27/19 09/27/19 History tobramycin-dexamethasone [TobraDex] 1 drp OPB QID PRN 09/27/19 09/27/19 History Allergies Allergy/AdvReac Type Severity Reaction Status Date / Time allopurinol Allergy Unknown ON [facility] Verified 09/27/19 23:17 [facility] Cephalosporins Allergy Unknown ON [facility] Verified 09/27/19 23:17 [email or web address] MED LIST NEOMYCIN/POLY/GRAM EYE DROPS Allergy Unknown ON CAHT[place] Uncoded 09/27/19 23:17 [facility] Past Med/Surg History Medical History Aortic valve stenosis Cervical cancer 1997--sx Chronic kidney disease, stage 3 (moderate) Diverticular disease Gout Gout History of colon polyps History of esophageal dilatation History of falling Hypertension Osteoarthritis Polymyalgia rheumatica Schatzki's ring Status post closed fracture of right femur Surgical History H/O aortic valve replacement 09/2007 @ [facility] [place] H/O cataract extraction H/O total hysterectomy History of breast biopsy History of cardiac cath 08/20/2007 History of cholecystectomy History of colonoscopy History of esophagogastroduodenoscopy (EGD) History of vein stripping x2 Family History Mother Rectal cancer Social History Preferred Language: Croatian Communication Ability: Effective Endocrinology Physician Required: No Beliefs That Will Affect Care: None Current Living Situation: [facility] Current Living Situation Comment: [facility] current occupational status: retired Other Information That Helps Us Care for You: No Feels Safe at Home: Yes Safety Concerns: Feels Safe At This Time Smoking Status: Never smoker Hx Alcohol Use: No Hx Substance Use: No Review of Systems See HPI for pertinent positives & negatives. and A total of 10 systems reviewed and were otherwise negative Physical Exam Vital Signs Vital Signs - 24 hr 09/27/19 22:43 09/27/19 22:56 09/27/19 22:58 Temperature Temperature Source Pulse Rate 124 H 95 H 123 H Pulse Rate [Left Apical] Pulse Rate from SpO2 Sensor 96 H 123 H Pulse Rhythm Respiratory Rate 31 H 27 H 28 H Respiratory Effort / Characteristics Labored Tripoding Respiratory Depth Deep Respiratory Pattern Regular Blood Pressure 224/117 H 224/117 H Blood Pressure [Right Arm] Blood Pressure Mean 152 138 Blood Pressure Mean [Right Arm] Blood Pressure Position Lying Blood Pressure Position [Right Arm] Pulse Oximetry 100 100 100 Oxygen Delivery Method BiPAP Fraction of Inspired Oxygen SaO2/FiO2 Ratio Sepsis Recent Fever Within 48 Hours No Sepsis Action Taken by Nursing No Action Required Fraction of Inspired Oxygen - Titration Pulse Oximetry Post Tiitration 09/27/19 23:00 09/27/19 23:05 09/27/19 23:10 Temperature Temperature Source Pulse Rate 126 H 102 H 104 H Pulse Rate [Left Apical] Pulse Rate from SpO2 Sensor 126 H 102 H 105 H Pulse Rhythm Regular Respiratory Rate 28 H 25 H 28 H Respiratory Effort / Characteristics Respiratory Depth Respiratory Pattern Blood Pressure 173/103 H Blood Pressure [Right Arm] Blood Pressure Mean 115 Blood Pressure Mean [Right Arm] Blood Pressure Position Blood Pressure Position [Right Arm] Pulse Oximetry 99 97 98 Oxygen Delivery Method BiPAP Fraction of Inspired Oxygen 40 SaO2/FiO2 Ratio 242 Sepsis Recent Fever Within 48 Hours Sepsis Action Taken by Nursing Fraction of Inspired Oxygen - Titration Pulse Oximetry Post Tiitration 09/27/19 23:11 09/27/19 23:12 09/27/19 23:15 Temperature Temperature Source Pulse Rate 104 H 101 H 98 H Pulse Rate [Left Apical] Pulse Rate from SpO2 Sensor 104 H 101 H 99 H Pulse Rhythm Respiratory Rate 31 H 25 H 26 H Respiratory Effort / Characteristics Respiratory Depth Respiratory Pattern Blood Pressure 148/98 H 154/98 H Blood Pressure [Right Arm] Blood Pressure Mean 105 115 Blood Pressure Mean [Right Arm] Blood Pressure Position Blood Pressure Position [Right Arm] Pulse Oximetry 97 97 98 Oxygen Delivery Method Fraction of Inspired Oxygen SaO2/FiO2 Ratio Sepsis Recent Fever Within 48 Hours Sepsis Action Taken by Nursing Fraction of Inspired Oxygen - Titration Pulse Oximetry Post Tiitration 09/27/19 23:20 09/27/19 23:25 09/27/19 23:30 Temperature Temperature Source Pulse Rate 100 H 100 H 98 H Pulse Rate [Left Apical] Pulse Rate from SpO2 Sensor 103 H 100 H 98 H Pulse Rhythm Respiratory Rate 28 H 22 25 H Respiratory Effort / Characteristics Respiratory Depth Respiratory Pattern Blood Pressure 168/100 H 153/94 H 156/93 H Blood Pressure [Right Arm] Blood Pressure Mean 129 118 111 Blood Pressure Mean [Right Arm] Blood Pressure Position Blood Pressure Position [Right Arm] Pulse Oximetry 98 99 99 Oxygen Delivery Method Fraction of Inspired Oxygen SaO2/FiO2 Ratio Sepsis Recent Fever Within 48 Hours Sepsis Action Taken by Nursing Fraction of Inspired Oxygen - Titration Pulse Oximetry Post Tiitration 09/27/19 23:35 09/27/19 23:40 09/27/19 23:45 Temperature Temperature Source Pulse Rate 95 H 98 H 95 H Pulse Rate [Left Apical] Pulse Rate from SpO2 Sensor 97 H 97 H 95 H Pulse Rhythm Respiratory Rate 25 H 26 H 23 Respiratory Effort / Characteristics Respiratory Depth Respiratory Pattern Blood Pressure 168/96 H 165/96 H Blood Pressure [Right Arm] Blood Pressure Mean 120 120 Blood Pressure Mean [Right Arm] Blood Pressure Position Blood Pressure Position [Right Arm] Pulse Oximetry 100 100 100 Oxygen Delivery Method BiPAP Fraction of Inspired Oxygen 40 SaO2/FiO2 Ratio Sepsis Recent Fever Within 48 Hours Sepsis Action Taken by Nursing Fraction of Inspired Oxygen - Titration 30 Pulse Oximetry Post Tiitration 99 09/27/19 23:50 09/28/19 00:11 Temperature 36.7 C Temperature Source Oral Pulse Rate 99 H Pulse Rate [Left Apical] 89 Pulse Rate from SpO2 Sensor 95 H Pulse Rhythm Respiratory Rate 18 21 Respiratory Effort / Characteristics Non-Labored Respiratory Depth Normal Respiratory Pattern Regular Blood Pressure 156/95 H Blood Pressure [Right Arm] 141/98 H Blood Pressure Mean 115 Blood Pressure Mean [Right Arm] 112 Blood Pressure Position Blood Pressure Position [Right Arm] Lying Pulse Oximetry 99 99 Oxygen Delivery Method Ambu-Bag Fraction of Inspired Oxygen 30 SaO2/FiO2 Ratio 330 Sepsis Recent Fever Within 48 Hours Sepsis Action Taken by Nursing Fraction of Inspired Oxygen - Titration Pulse Oximetry Post Tiitration Physical Exam GENERAL: He is oriented to person, place, and time. He appears well-developed and well-nourished. He does not appear distressed. ____ HENT: Exam performed. - Head: Normocephalic and atraumatic. - Right Ear: External ear normal. No mastoid tenderness. - Left Ear: External ear normal. No mastoid tenderness. - Mouth/Throat: The oropharynx is clear and moist. No trismus in the jaw. No dental abscesses or uvula swelling. No oropharyngeal exudate or tonsillar abscesses. ____ EYES: Conjunctivae and EOM are normal. Pupils are equal, round, and reactive to light. Right eye exhibits no discharge. Left eye exhibits no discharge. No scleral icterus. ____ NECK: Normal range of motion. Neck supple. No JVD present. No spinous process tenderness present. No carotid bruit present. No rigidity. No tracheal deviation and normal range of motion present. No Brudzinski's sign and no Kernig's sign noted. ____ CV: Normal rate, regular rhythm, normal heart sounds and intact distal pulses. There is no peripheral edema. Palpable radial pulses bue. ____ PULM/CHEST: Respiratory distress. Mild rales in bilateral bases. No stridor. He has no wheezes. - Chest Wall: He exhibits no tenderness. ____ ABD: The abdomen is soft. Bowel sounds are normal. He has no distension. No mass is present. There is no tenderness. There is no rebound, no guarding, no Lee's sign and no tenderness at McBurney's point. Rovsig negative MUSC/SKEL: 1+ pitting edema in bilateral lower extremities. Normal range of motion. There is no tenderness or deformity. LYMPH: No cervical adenopathy. ____ NEURO: He is alert and oriented to person, place, and time. He has normal strength. No cranial nerve deficit or sensory deficit. Coordination and gait normal. GCS eye subscore is 4. GCS verbal subscore is 5. GCS motor subscore is 6. cerbellar tests wnl. ____ SKIN: Skin is warm and dry. He is not diaphoretic. ____ PSYCH: He has a normal mood and affect. His behavior is normal. Judgment and thought content normal. ____ Course Course 2249: The patient was evaluated in room B1, and a complete history and physical examination were performed. Patient was placed on personnel monitor and continuous pulse ox. She was continued on the BiPAP as well as nitro drip that was started by EMS. Stat portable chest x-ray reviewed by me showed mild cardiomegaly with mild cephalization consistent with CHF. Emphysematous lungs. Continuous Cardiac Monitoring: An order was placed for continuous cardiac monitoring. The monitor shows a rate of 105 with sinus tachycardia. 2315: On reassessment the patient's blood pressure is 148/96, the patient's nitro drip will decrease down to 40 mcg/min. The patient's blood pressure will be continued to be monitored will we titrate her nitro drip down. 2322: I reviewed the patient's case with Dr. Rhonda Santos Hospitalist. He will evaluate the patient for further management. 2338: On reassessment, the patient is continued on 100% on BiPAP. The patient's nitro drip is cut to 20 mcg/min. The patient's blood pressure is 171/94 and her heart rate is 98 in sinus rhythm. 2353: On reassessment the patient's blood pressure is 156/49 and her nitro drip will go down to 10 mcg/min. 0010: Dr. Rhonda Santos Hospitalist, evaluated the patient and stopped her on the nitro drip and applied a nitro paste. The patient's troponin is elevated and it is presumed to be due to CHF exacerbation. proBNP is also elevated. Dr. Giraldo's services will trend for troponin. Administered Medications Nitroglycerin/Dextrose (Nitroglycerin/D5w 100 Mcg/Ml) 250 mls @ 30 mls/hr IV .[id number] [facility]; Protocol Stop: 10/27/19 23:14 Last Titration: 09/28/19 00:07 Dose: 0 mcg/min, 0 mls/hr Documented by: [id number] Titration: 09/27/19 23:53 Dose: 10 mcg/min, 6 mls/hr Documented by: [id number] Titration: 09/27/19 23:32 Dose: 20 mcg/min, 12 mls/hr Documented by: [id number] Titration: 09/27/19 23:14 Dose: 40 mcg/min, 24 mls/hr Documented by: [id number] Titration: 09/27/19 23:12 Dose: 45 mcg/min, 27 mls/hr Documented by: [id number] Admin: 09/27/19 23:08 Dose: 60 mcg/min, 36 mls/hr Documented by: [id number] Cosigned by: [id number] Nitroglycerin (Nitro-Bid 2%) 1 inch EXT ONCE W[place]ON Stop: 10/28/19 00:14 Last Admin: 09/28/19 00:09 Dose: 1 inch Documented by: [id number] Critical Care Time Critical Care Time: Yes Total Critical Care Time: 55 I have personally spent 55 minutes of critical care time in the direct management of this patient. This includes bedside care, interpretation of diagnostic studies, and testing, discussion with consultants, patient, and family members, and other required patient management activities. This 55 m inutes is in excess of all separately billable procedures. Medical Decision Making Medical Records Attestation: I reviewed the patient's medical records. Home Medications Current Medication List: was personally reviewed by me Laboratory Data Attestation: I reviewed the patient's lab results. Result diagrams: 09/27/19 22:45 09/27/19 22:45 Lab Results 09/27/19 09/27/19 09/27/19 Range/Units 22:45 22:45 22:45 WBC 7.57 (4.8-10.8) K/uL RBC 3.83 L (4.2-5.4) M/uL Hgb 12.3 (12.0-16.0) g/dL Hct 36.6 L (37-47) % MCV 95.6 (80-100) fL MCH 32.1 (25-34) pg MCHC 33.6 (32-36) g/dL RDW Std Deviation 47.7 H (36.4-46.3) fL RDW Coeff of Jimmie 13.7 (11.5-14.5) % Plt Count 200 (130-400) K/uL MPV 9.7 (7.4-10.4) fL Immature Gran % (Auto) 0.1 % Neut % (Auto) 66.2 % Lymph % (Auto) 18.6 % Dodge % (Auto) 7.9 % Eos % (Auto) 6.9 % Baso % (Auto) 0.3 % Immature Gran # (Auto) 0.01 (0.00-0.02) K/uL Neut # (Auto) 5.01 (1.4-6.5) K/uL Lymph # (Auto) 1.41 (1.2-3.4) K/uL Dodge # (Auto) 0.60 H (0.11-0.59) K/uL Eos # (Auto) 0.52 H (0-0.5) K/uL Baso # (Auto) 0.02 (0-0.2) K/uL PT 11.0 (9.0-12.0) Seconds INR 1.0 (0.9-1.1) APTT 26.2 (21.0-31.0) Seconds PTT Ratio 0.9 VBG pH (7.36-7.41) VBG pCO2 (38-50) mmHg VBG pO2 mmHg VBG HCO3 mmol/L VBG O2 Saturation % VBG Base Excess mEq/L Barometric Pressure mm/Hg Sodium 132 L (136-145) mmol/L Potassium 4.2 (3.5-5.1) mmol/L Chloride 99 (98-107) mmol/L Carbon Dioxide 24 (21-32) mmol/L Anion Gap 9.0 (3-11) BUN 18 (7-18) mg/dl Creatinine 0.95 (0.6-1.2) mg/dl Est Cr Clr Drug Dosing Not Reportable Est GFR ( Amer) 64.2 Est GFR (Non-Af Amer) 55.4 BUN/Creatinine Ratio 18.8 (10-20) Glucose 146 H (70-99) mg/dl Calcium 9.2 (8.5-10.1) mg/dl Magnesium 2.0 (1.8-2.4) mg/dl Total Bilirubin 0.9 (0.2-1) mg/dl Direct Bilirubin < 0.1 (0-0.2) mg/dl AST 21 (15-37) U/L ALT 17 (12-78) U/L Alkaline Phosphatase 91 (45-117) U/L Troponin I 0.161 H* (0-0.045) ng/ml NT-Pro-B Natriuret Pep 5806 H (0-1800) pg/ml Total Protein 7.9 (6.4-8.2) gm/dl Albumin 3.8 (3.4-5.0) gm/dl Lipase 90 (73-393) U/L Urine Color Urine Appearance (Clear) Urine pH (4.5-7.5) Ur Specific Charlotte (1.000-1.030) Urine Protein (Negative) Urine Glucose (UA) (Negative) Urine Ketones (Negative) Urine Blood (Negative) Urine Nitrite (Negative) Urine Bilirubin (Negative) Urine Urobilinogen (Negative) Ur Leukocyte Esterase (Negative) Urine WBC (Auto) (0-5) /hpf Urine RBC (Auto) (0-4) /hpf U Hyaline Cast (Auto) (0-5) /lpf U Epithel Cells (Auto) (0-5) /lpf Urine Bacteria (Auto) (Negative) Influenza Type A (PCR) (Neg) Influenza Type B (PCR) (Neg) 09/27/19 09/27/19 09/27/19 Range/Units 22:55 22:58 23:05 WBC (4.8-10.8) K/uL RBC (4.2-5.4) M/uL Hgb (12.0-16.0) g/dL Hct (37-47) % MCV (80-100) fL MCH (25-34) pg MCHC (32-36) g/dL RDW Std Deviation (36.4-46.3) fL RDW Coeff of Jimmie (11.5-14.5) % Plt Count (130-400) K/uL MPV (7.4-10.4) fL Immature Gran % (Auto) % Neut % (Auto) % Lymph % (Auto) % Dodge % (Auto) % Eos % (Auto) % Baso % (Auto) % Immature Gran # (Auto) (0.00-0.02) K/uL Neut # (Auto) (1.4-6.5) K/uL Lymph # (Auto) (1.2-3.4) K/uL Dodge # (Auto) (0.11-0.59) K/uL Eos # (Auto) (0-0.5) K/uL Baso # (Auto) (0-0.2) K/uL PT (9.0-12.0) Seconds INR (0.9-1.1) APTT (21.0-31.0) Seconds PTT Ratio VBG pH 7.28 L (7.36-7.41) VBG pCO2 55 H (38-50) mmHg VBG pO2 31 mmHg VBG HCO3 25 mmol/L VBG O2 Saturation < 60.0 % VBG Base Excess -2.3 mEq/L Barometric Pressure 742.6 mm/Hg Sodium (136-145) mmol/L Potassium (3.5-5.1) mmol/L Chloride (98-107) mmol/L Carbon Dioxide (21-32) mmol/L Anion Gap (3-11) BUN (7-18) mg/dl Creatinine (0.6-1.2) mg/dl Est Cr Clr Drug Dosing Est GFR ( Amer) Est GFR (Non-Af Amer) BUN/Creatinine Ratio (10-20) Glucose (70-99) mg/dl Calcium (8.5-10.1) mg/dl Magnesium (1.8-2.4) mg/dl Total Bilirubin (0.2-1) mg/dl Direct Bilirubin (0-0.2) mg/dl AST (15-37) U/L ALT (12-78) U/L Alkaline Phosphatase (45-117) U/L Troponin I (0-0.045) ng/ml NT-Pro-B Natriuret Pep (0-1800) pg/ml Total Protein (6.4-8.2) gm/dl Albumin (3.4-5.0) gm/dl Lipase (73-393) U/L Urine Color Yellow Urine Appearance Clear (Clear) Urine pH 6.5 (4.5-7.5) Ur Specific Charlotte 1.010 (1.000-1.030) Urine Protein 1+ H (Negative) Urine Glucose (UA) Negative (Negative) Urine Ketones Negative (Negative) Urine Blood Negative (Negative) Urine Nitrite Negative (Negative) Urine Bilirubin Negative (Negative) Urine Urobilinogen Negative (Negative) Ur Leukocyte Esterase Negative (Negative) Urine WBC (Auto) 1-5 (0-5) /hpf Urine RBC (Auto) 0-4 (0-4) /hpf U Hyaline Cast (Auto) 1-5 (0-5) /lpf U Epithel Cells (Auto) 0-5 (0-5) /lpf Urine Bacteria (Auto) Negative (Negative) Influenza Type A (PCR) Neg for Influ A (Neg) Influenza Type B (PCR) Neg for Influ B (Neg) Imaging Data Radiologist's Impression: Radiology results as stated below per my review and the radiologist's interpretation: XR chest 1V portable CLINICAL HISTORY: 84 years-old Female presenting with shortness of breath. TECHNIQUE: Portable upright AP view of the chest was obtained. COMPARISON: 05/09/2017. FINDINGS: Median sternotomy wires and prosthetic aortic valve. Atherosclerosis of the aortic arch. Cardiac silhouette top normal in size. Lungs are hyperinflated. Significant heterogeneity lung parenchyma. Minimal nodular right basilar opacity. No pleural effusion or pneumothorax. Osteopenia suspected. Degenerative changes of the spine. IMPRESSION: 1. Minimal nodular right basilar atelectasis or scarring may be present. Consider PA and lateral views for better assessment. 2. Underlying emphysema. 3. Borderline cardiomegaly. ACT 112: Negative or not required by law. Electronically signed by: Justin Rae M.D. 09/27/2019 11:01 PM ECG Data Attestation: I personally reviewed and interpreted this ECG as follows: Indication: + SOB/dyspnea Rate (beats per minute): 99 Rhythm: + sinus rhythm ECG Intervals/blocks: + First degree AV block, + Normal QRS and + Normal QT-c ECG ST segments: + ST depression (lead v4-v6) ECG Findings: + Other (prs interval at 238) Comparison ECG Date: from (05/09/17) Change: the following changes noted (ST depressions are new) Blood Pressure Blood Pressure Findings: Elevated blood pressure Blood Pressure Disposition: further management by hospitalist GIACOMO Narrative 2248: The patient was evaluated in room B1, and a complete history and physical examination were performed. Patient was placed on personnel monitor and continuous pulse ox. She was continued on the BiPAP as well as nitro drip that was started by EMS. Stat portable chest x-ray reviewed by me showed mild cardiomegaly with mild cephalization consistent with CHF. Emphysematous lungs. Continuous Cardiac Monitoring: An order was placed for continuous cardiac monitoring. The monitor shows a rate of 105 with sinus tachycardia. 2315: On reassessment the patient's blood pressure is 148/96, the patient's nitro drip will decrease down to 40 mcg/min. The patient's blood pressure will be continued to be monitored will we titrate her nitro drip down. 2322: I reviewed the patient's case with Dr. Rhonda Santos Hospitalist. He will evaluate the patient for further management. 2338: On reassessment, the patient is continued on 100% on BiPAP. The patient's nitro drip is cut to 20 mcg/min. The patient's blood pressure is 171/94 and her heart rate is 98 in sinus rhythm. 2353: On reassessment the patient's blood pressure is 156/49 and her nitro drip will go down to 10 mcg/min. 0010: Dr. Rhonda Santos Hospitalist, evaluated the patient and stopped her on the nitro drip and applied a nitro paste. The patient's troponin is elevated and it is presumed to be due to CHF exacerbation. proBNP is also elevated. Dr. Giraldo's services will trend for troponin. Impression & Plan Hypoxia, CHF exacerbation, Hypertension Discharge Plan Visit Data Chief Complaint: Shortness of Breath/Dyspnea Stated Complaint: SOB ED Provider: Surjit Jiménez Discharge Problem: Hypoxia, CHF exacerbation, Hypertension Patient Disposition: Being Evaluated by Hospitalist Forms Stand Alone Forms: My [facility] Prescriptions Prescriptions: No Action aspirin [Aspirin Low Dose] 81 mg Tablet,Delayed Release (Dr/Ec) 81 mg PO DAILY RF: 0 docusate sodium 100 mg Capsule 100 mg PO BID RF: 0 lisinopril 5 mg Tablet 5 mg PO DAILY RF: 0 furosemide 20 mg Tablet 20 mg PO DAILYBB RF: 0 metoprolol succinate 25 mg Tablet Extended Release 24 Hr 12.5 mg PO DAILY RF: 0 cholecalciferol (vitamin D3) 1,000 unit Tablet 1,000 unit PO DAILY RF: 0 acetaminophen [Acetaminophen Extra Strength] 500 mg Tablet 500 mg PO Q4 MDD 3 GRAMS/24 HOURS PRN (Reason: Pain) RF: 0 amoxicillin 500 mg Tablet 2,000 mg PO DAILY PRN (Reason: prior to dental procedures) RF: 0 ferrous sulfate 325 mg (65 mg iron) Tablet 325 mg PO BID RF: 0 sennosides 8.6 mg Tablet 8.6 mg PO DAILY PRN (Reason: Constipation) RF: 0 fexofenadine 180 mg Tablet 180 mg PO DAILY RF: 0 hydrocortisone 1 % Cream 1 applic TOPICAL DIRECTED PRN (Reason: Skin Irritation) RF: 0 omeprazole 20 mg Capsule,Delayed Release(Dr/Ec) 20 mg PO DAILY RF: 0 Mucinex DM 30-600 mg Tablet Extended Release 12 Hr 1 tab PO Q12H PRN (Reason: Congestion) RF: 0 oxybutynin chloride 5 mg Tablet 5 mg PO DAILY RF: 0 Antacid-Simethicone 400-400-40 mg/5 mL Suspension 10 - 20 ml PO QID PRN (Reason: HEARTBURN/INDIGESTION/GAS) RF: 0 tobramycin-dexamethasone [TobraDex] 0.3-0.1 % Drops,Suspension 1 drp OPB QID PRN (Reason: NEEDED) RF: 0 Rosemarie Protect Cream 1 applic TOPICAL DAILY PRN (Reason: Skin Irritation) RF: 0 [facility] - Discharge Problem: CHF exacerbation Qualifiers: Heart failure type: unspecified Qualified Code(s): I50.9 - Heart failure, unspecified Hypertension Qualifiers: Hypertension type: unspecified Qualified Code(s): I10 - Essential (primary) hypertension The scribe's documentation has been prepared under my direction and personally reviewed by me in its entirety. I confirm that the note above accurately reflects all work, treatment, procedures, and medical decision making performed by me.
[2019-09-28] MEDS ORDERED: OPTIRAY 320 125ml IV PRN (01:07)
[2019-09-28] MEDS ORDERED: POLYETHYLENE (MIRALAX) 17 GM PACK PO PRN (01:30)
[2019-09-28] MEDS ORDERED: NITROGLYCERIN SL 0.4 MG/TAB TAB SL PRN (01:30)
[2019-09-28] MEDS ORDERED: LABETALOL HCL IV 5 MG/ML 20ML IV PRN (01:30)
[2019-09-28] MEDS ORDERED: ONDANSETRON INJ 2 MG/ML 2 ML VIAL IV PRN (01:30)
[2019-09-28] MEDS ORDERED: ZINC OXIDE TOP PRN (01:30)
[2019-09-28] MEDS ORDERED: ACETAMINOPHEN 325 MG TAB PO PRN (01:30)
[2019-09-28] MEDS ORDERED: TOBRAMYCIN/DEXAMETHASONE OPH SUSP 2.5 ML BTL OPB PRN (01:30)
[2019-09-28] MEDS ORDERED: DIMETHICONE TOP PRN (01:30)
[2019-09-28] MEDS ORDERED: SENNA 8.6 MG TAB PO PRN (01:30)
[2019-09-28] MEDS ORDERED: ALUMINUM/MAGNESIUM/SIMETH (MAALOX MAX) 30 ML UDC PO PRN (01:30)
[2019-09-28] MEDS ORDERED: HYDROCORTISONE 1% CRM 30 GM TUBE EXT PRN (01:48)
[2019-09-28] MEDS ORDERED: guaiFENesin 600 MG TABCR PO PRN (01:53)
[2019-09-28] MEDS ORDERED: GUAIFENESIN/DEXTROM SYRUP 200MG/20MG 10ML UDC PO PRN (01:54)
[2019-09-28] MEDS ORDERED: LEVOFLOXACIN CONSULT ACTIVE PRN (03:31)
[2019-09-28] MEDS ORDERED: DOXYCYCLINE HYCLATE 100 MG in DEXTROSE 5% 100 ML IV SCH (04:00)
[2019-09-28] MEDS ORDERED: LEVOFLOXACIN/D5W 750 MG/150 ML BAG IV SCH (04:00)
[2019-09-28] MEDS ORDERED: Heparin IV Standard *NO* Bolus IV SCH (04:03)
[2019-09-28] MEDS: HEPARIN SODIUM/DEXTROSE 25,000 UNITS/500 ML BAG IV SCH (04:21)
[2019-09-28] MEDS: NITROGLYCERIN 2% OINTMENT 30GM TUBE EXT SCH ×3 (05:04→18:24)
[2019-09-28] MEDS ORDERED: HEPARIN SOD 5,000 UNIT/0.5 ML VIAL SQ SCH (06:00)
--- NOTE | 2019-09-28 07:36 | CT Scan Report ---
CHEST CTA for PULMONARY ARTERIES CT DOSE: 418.70 mGy.cm HISTORY: Shortness of breath. TECHNIQUE: Multiaxial CT images of the chest were performed following the intravenous administration of contrast to evaluate the pulmonary arteries. Maximal intensity projection images were also obtaine d. A dose lowering technique was utilized adhering to the principles of ALARA. COMPARISON STUDY: Chest CT 01/25/2012. FINDINGS: Mildly distended gas and fluid-filled esophagus. No mediastinal or hilar lymphadenopathy. T he heart is normal in size. Left ventricular hypertrophy is noted. Limited views of the upper abdomen demonstrate a normal liver and spleen. Prior cholecystectomy. Small bilateral pleural effusions. No pericardial effusion. Moderate calcified plaque within the thoracic aorta. No evidence for an aortic dissection. There is an aortic valve replacement and poststernotomy changes. No filling defects withi n the pulmonary arteries to suggest pulmonary embolus. No pneumothorax. Mild biapical pleural-parench ymal scarring. There is a 3 mm groundglass nodule within the left lung apex on image 302. There is a 3 mm nodule within the left lung apex on image 293. Patchy groundglass airspace opacities within the superior segment of the left lower lobe. There is a linear area of consolidation within the base of t he right lower lobe which favors atelectasis. Additional patchy groundglass airspace opacities within the right lung. There is right lower lobe bronchial wall thickening. Mild interlobular septal thicke lia within the right lung. IMPRESSION: 1. No evidence for pulmonary embolus. 2. Bilateral patchy groundglass airspace opacities as described above, most pronounced on the right. There are also small bilateral pleural effusions. Therefore, this could represent pulmonary edema or an atypical pneumonia. 3. Additional findings as described above. ACT 112: Negative or not required by law. Electronically signed by: Ludwig Braga M.D. 09/28/2019 7:35 AM
--- NOTE | 2019-09-28 07:57 | History and Physical Report ---
DATE OF ADMISSION: 09/28/2019 CHIEF COMPLAINT: Shortness of breath, respiratory distress. HISTORY OF PRESENT ILLNESS: This 84-year-old female who is currently to [facility] resident since couple of years since her fracture to right femur. 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 The patient states she was feeling extremely short of breath and could not take breathe and EMS was called in and she was hypoxic at 80% and blood pressure was high into 240s, thus was placed on BiPAP , IV Lasix given and brought to the hospital. In the ER, blood pressure in the 220s and placed on nitro drip.She was also tachypneic. She was placed on BiPAP. ABG was done which showed venous blood gas was pH of 7.2, pCO2 of 55. Rest of the labs show creatinine of 0.9, troponin of 0.1. BNP 5800. Influenza A and B was negative. Chest x-ray showed some emphysema, right basilar atelectasis. The patient was started on nitro drip, her blood pressure improved and eventually respirations improved. Currently resting comfortably and was able to talk in full sentences, alert and oriented. She says she has had cough for last 2 days, bringing somewhat whitish phlegm. Denies any fever, chills. Maybe she has some mild runny nose. Denies any sore throat, no fever, no chills, no chest pain, no headaches, no blurred vision, no earache, no runny nose. She ambulates with a walker. Denies any nausea, no abdominal pain. Appetite is okay. Normal bowel and bladder movements. Last bowel movement was couple of days ago and no blood in the stools. No hematuria or burning micturitions. She always has some mild swelling in the lower extremities. The patient's code status is DNR/DNI. ALLERGIES: ALLOPURINOL, CEPHALOSPORINS, NEOMYCIN. PAST MEDICAL HISTORY: As mentioned above. PAST SURGICAL HISTORY: History of prosthetic aortic valve replacement in 2007, history of cataract extraction, total hysterectomy, history of breast biopsy, cardiac catheterization in 2007, history of cholecystectomy, colonoscopy, EGDs, history of vein stripping x2, status post right femur surgery. MEDICATIONS: The patient currently on Tylenol Extra Strength q.4 hours p.r.n., simethicone 10 to 20 mL q.i.d. p.r.n., amoxicillin p.r.n., aspirin 81 mg p.o. daily, vitamin D 2000 units p.o. daily, Mucinex DM 1 tablet p.o. q.12 hours p.r.n., Colace 100 mg p.o. b.i.d., ferrous sulfate 325 mg p.o. b.i.d., fexofenadine 180 mg p.o. daily, Lasix 20 mg p.o. daily, hydrocortisone topical p.r.n., lisinopril 5 mg p.o. daily, Toprol-XL 12.5 mg p.o. daily, omeprazole 20 mg p.o. daily, oxybutynin 5 mg p.o. daily, Senokot 8.6 mg p.o. daily p.r.n., TobraDex 1 drop ophthalmic q.i.d. p.r.n. FAMILY HISTORY: Significant for mother had rectal cancer. Father had stroke. SOCIAL HISTORY: , currently living at [facility]. Quit smoking in 1981. Prior to that, smoked 1 pack a day for 35 years. No alcohol use, no drug use. REVIEW OF SYMPTOMS: As per HPI. Rest of review of symptoms negative. PHYSICAL EXAMINATION: GENERAL: The patient is of moderate build, not in acute distress. VITAL SIGNS: Temperature 36.7, pulse currently 89, respiratory rate 21, blood pressure when she came in was 224/117, currently 141/98, oxygen 98% on BiPAP. HEENT: No pallor, no icterus. Pupils equal, round, reactive to light. NECK: No JVD, no neck masses, no carotid bruits. CARDIOVASCULAR: S1, S2 heard, regular rate and rhythm, no murmur, no gallop. RESPIRATORY SYSTEM: Normal AP diameter. No accessory muscle use. No wheezing. Mild bibasilar crackles. ABDOMEN: Soft, bowel sounds present, nontender. No distention. CENTRAL NERVOUS SYSTEM: Alert and oriented. Speech is clear. Obeys commands. Insight good. Moves extremities. EXTREMITIES: Trace pedal edema present, no erythema seen. LABORATORY DATA: WBC 7.5, hemoglobin 12.3, hematocrit 36.6, platelets 200. PT 11, INR 1, APTT 26.2. Venous blood gas pH of 7.28, pCO2 55, pO2 31, bicarbonate 25. Sodium 132, potassium 4.2, chloride 99, CO2 24, BUN 18, creatinine 0.9, serum glucose 146, calcium 9.2, magnesium 2, total bilirubin 0.9, direct bilirubin less than 0.1, AST 21, ALT 17, alkaline phosphatase 91. Troponin I 0.161. BNP 5800. Lipase 90. Urinalysis negative. Influenza A and B PCR negative. CHEST X-RAY: Emphysema, multiple old right basal atelectasis, borderline cardiomegaly. EKG: Sinus rhythm with first degree AV block at a rate of 91, ST depression in lateral leads. ASSESSMENT AND PLAN: This is an 84-year-old female presents with acute shortness of breath. 1. Acute respiratory distress, possible cause could be acute diastolic congestive heart failure. 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 Rule out acute coronary syndrome. Mild elevation of troponin of 0.[address] depression seen in EKG in lateral leads. We will also rule out pulmonary embolism with the CT of the chest. Flu is negative. BNP is elevated at 5800 and received IV Lasix. Follow the response. Continue BiPAP for now. Follow serial cardiac enzymes, echocardiogram, keep her n.p.o. and consult cardiology for further recommendations. 2. Mild elevation of troponin, probably demand ischemia from congestive heart failure and hypertensive urgency or could be acute coronary syndrome. ST depression in the lateral leads and EKG The patient is asymptomatic. We will follow cardiac enzymes and echo. cardiology consult in am..But second troponin went up to 2.6. Starting on iv heparin. 4. Hypertensive urgency. The patient's blood pressure 240s at senior care, and 220s in the ER, was placed on nitro drip, currently under control. Will discontinue nitro drip and place on nitro paste. Continue her home medication of lisinopril and Toprol-XL and labetalol p.r.n. and monitor in the telemetry floor. 5. History of chronic kidney disease stage III, creatinine is 0.9. We will follow the labs . 6. History of dysphagia, status post esophageal dilatation 7. History of prosthetic aortic valve replacement. 8. Gastroesophageal Reflux Disease, on PPI. 9. Deep vein thrombosis prophylaxis. IV heparin. DISPOSITION: Closely monitor in tele floor. Code status: DNR/DNI as per my discussion with the patient. PT and OT prior to discharge. Social Service to help with discharge planning. Addendum: CT chest NO PE. But showed Pneumonia. Starting on Iv Levaquin. MTDD
[2019-09-28] MEDS: CHOLECALCIFEROL 1,000 UNITS 25 MCG TAB PO SCH (08:08)
[2019-09-28] MEDS: DOCUSATE SODIUM 100 MG CAP PO SCH ×2 (08:08→19:37)
[2019-09-28] MEDS: PANTOprazole 40 MG TAB PO SCH (08:08)
[2019-09-28] MEDS: METOPROLOL SUCC 25MG EXT REL TAB PO SCH (08:08)
[2019-09-28] MEDS: FEXOFENADINE HCL 180 MG TAB PO SCH (08:08)
[2019-09-28] MEDS: OXYBUTYNIN CHLORIDE 5 MG TAB PO SCH (08:08)
[2019-09-28] MEDS: lisinopriL 5 MG TAB PO SCH (08:08)
[2019-09-28] MEDS: FERROUS SULFATE 325 MG TAB PO SCH ×2 (08:08→19:37)
[2019-09-28] MEDS: ASPIRIN 81 MG ECTAB PO SCH (08:08)
[2019-09-28 08:35] LABS: Basophils # (auto) 0.01 K/uL (0-0.2); Basophils % (auto) 0.3 %; Eosinophils # (auto) 0.12 K/uL (0-0.5); Eosinophils % (auto) 3.1 %; Hematocrit (blood only) 29.6 % (37-47); Immature Granulocytes # (auto) 0.01 K/uL (0.00-0.02); Immature Granulocytes % (auto) 0.3 %; Lymphocytes % (auto) 17.9 %; Mean Corpuscular Hemoglobin 32.1 pg (25-34); Mean Corpuscular Hgb Conc 33.8 g/dL (32-36); Mean Corpuscular Volume 94.9 fL (80-100); Mean Platelet Volume 9.5 fL (7.4-10.4); Monocytes # (auto) 0.51 K/uL (0.11-0.59); Neutrophils # (auto) 2.56 K/uL (1.4-6.5); Neutrophils % (auto) 65.4 %; Platelet Count 155 K/uL (130-400); RDW Coefficient of Variation 13.6 % (11.5-14.5); RDW Standard Deviation 47.1 fL (36.4-46.3); Red Blood Count 3.12 M/uL (4.2-5.4); White Blood Count 3.91 K/uL (4.8-10.8)
[2019-09-28 08:54] LABS: Allen Test Pos (Pos); Base Excess ABG -0.1 mEq/L (-9-1.8); HCO3 ABG 23 mmol/L (19-24); Oxygen Saturation ABG 96.4 % (90-95); PCO2 ABG 32 mmHg (35-46); PO2 ABG 77 mmHg (80-95); pH ABG 7.47 (7.35-7.45)
[2019-09-28 09:08] LABS: BUN Creatinine Ratio 19.6 (10-20); Calcium 8.5 mg/dl (8.5-10.1); Creatinine Clr Calc Pharmacy 47.3 ml/min; Est GFR (African American) 67.6; Est GFR (Non-African American) 58.3; Magnesium 1.9 mg/dl (1.8-2.4); Potassium 4.1 mmol/L (3.5-5.1)
[2019-09-28 10:44] LABS: Partial Thromboplastin Ratio 2.7
--- NOTE | 2019-09-28 11:15 | Cardiology Consultation ---
Date of Consultation September 28, 2019 Assessment & Plan (1) NSTEMI (non-ST elevated myocardial infarction): (2) CHF exacerbation: (3) S/P AVR: I had a long discussion with this patient whom I follow through my clinic. 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 She has had a non-STEMI infarct which most likely resulted in her congestive heart failure. She does not want a cardiac catheterization. She understands the risk and benefits. I believe this is not a unreasonable choice. We will treat her congestive heart failure and ischemic heart disease conservatively. Currently she is stable and doing well. 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 She is status post AVR with a bioprosthetic valve in 2007. She was admitted with respiratory extremis due to congestive heart failure. After admission she has an increase in her cardiac troponins consistent with a non-STEMI. I believe her heart failure may have resulted from the non-STEMI. She expresses no chest pain today. She has had no other symptoms recently such as progressive shortness of breath or activity related chest pain. She has been given IV diuretics and started on antibiotics. She feels improved. Past medical history: 1. Status post aortic valve replacement for aortic stenosis in 2007 receiving a bioprosthesis at [employer] 2. Polymyalgia rheumatica 3. Hypertension - controlled Allergies Allergy/AdvReac Type Severity Reaction Status Date / Time allopurinol Allergy Unknown [place] Verified 09/27/19 23:17 [facility] Cephalosporins Allergy Unknown [place] Verified 09/27/19 23:17 [facility] NEOMYCIN/POLY/GRAM EYE DROPS Allergy Unknown [place] Uncoded 09/27/19 23:17 [facility] LIST Home Medications Home Medications Medication Instructions Recorded Confirmed Type aspirin [Aspirin Low Dose] 81 mg PO DAILY 06/11/18 09/27/19 History cholecalciferol (vitamin D3) 1,000 unit PO DAILY 06/11/18 09/27/19 History docusate sodium 100 mg PO BID 06/11/18 09/27/19 History furosemide 20 mg PO DAILYBB 06/11/18 09/27/19 History lisinopril 5 mg PO DAILY 06/11/18 09/27/19 History metoprolol succinate 12.5 mg PO DAILY 06/11/18 09/27/19 History acetaminophen [Acetaminophen Extra 500 mg PO Q4 PRN MDD 3 /07/29/18 09/27/19 History Strength] HOURS amoxicillin 2,000 mg PO DAILY PRN 07/29/18 09/27/19 History ferrous sulfate 325 mg PO BID 07/29/18 09/27/19 History alum-mag hydroxide-simeth 10 - 20 ml PO QID PRN 09/27/19 09/27/19 History [Antacid-Simethicone] dextromethorphan-guaifenesin 1 tab PO Q12H PRN 09/27/19 09/27/19 History [Mucinex DM] dimethicone-zinc oxide [Rosemarie 1 applic TOPICAL DAILY PRN 09/27/19 09/27/19 History Protect] fexofenadine 180 mg PO DAILY 09/27/19 09/27/19 History hydrocortisone 1 applic TOPICAL DIRECTED PRN 09/27/19 09/27/19 History omeprazole 20 mg PO DAILY 09/27/19 09/27/19 History oxybutynin chloride 5 mg PO DAILY 09/27/19 09/27/19 History sennosides 8.6 mg PO DAILY PRN 09/27/19 09/27/19 History tobramycin-dexamethasone [TobraDex] 1 drp OPB QID PRN 09/27/19 09/27/19 History Patient History Medical History Aortic valve stenosis Cervical cancer 1997--sx Chronic kidney disease, stage 3 (moderate) Diverticular disease Gout Gout History of colon polyps History of esophageal dilatation History of falling Hypertension Osteoarthritis Polymyalgia rheumatica Schatzki's ring Status post closed fracture of right femur Surgical History H/O aortic valve replacement 09/2007 @ [facility] [place] H/O cataract extraction H/O total hysterectomy History of breast biopsy History of cardiac cath 08/20/2007 History of cholecystectomy History of colonoscopy History of esophagogastroduodenoscopy (EGD) History of vein stripping x2 Family History Mother Rectal cancer Social History Preferred Language: Swedish Communication Ability: Effective Pad Tufter Required: No Beliefs That Will Affect Care: None Current Living Situation: Snf Current Living Situation Comment: [facility] current occupational status: retired Other Information That Helps Us Care for You: No Feels Safe at Home: Yes Safety Concerns: Feels Safe At This Time Smoking Status: Never smoker Hx Alcohol Use: No Hx Substance Use: No Review of Systems Review of Systems: All systems reviewed & are unremarkable except as noted in HPI & below Nothing additional to add. Physical Exam Physical Exam: General: no acute distress and stated age Head: normocephalic, no masses, lesions, tenderness or abnormalities Eyes: conjunctiva are pink and non-injected, sclera clear Neck: supple, no adenopathy, no bruits, normal jugular venous pulse, no hepatojugular reflux Chest: normal shape and normal respiratory effort Lungs: Rales throughout bilaterally. Cardiac Exam: - regular rate & rhythm, no murmurs gallops or rubs - normal S1, normal S2 Pulses: 2(+) throughout Abdomen: abdomen soft, non-tender, no abnormal masses and no hepatosplenomegaly Musculoskeletal: no gait disturbance, no joint inflammation, no deforming arthritis Extremities: no edema and no cyanosis Neuro: grossly normal exam Results & Data ([facility]) Vital Signs (Past 12 Hours) Vital Signs Temp Pulse Pulse Resp BP BP BP 09/28/19 07:01 36.6 C 73 21 104/58 L 09/28/19 03:27 36.7 C 77 19 124/62 09/28/19 03:06 74 09/28/19 01:30 09/28/19 01:10 36.7 C 90 18 147/62 H 09/28/19 00:45 76 15 107/65 09/28/19 00:40 84 15 09/28/19 00:35 84 17 09/28/19 00:30 115 H 28 H 138/75 09/28/19 00:25 80 14 09/28/19 00:20 87 20 09/28/19 00:16 90 18 147/86 H 09/28/19 00:15 90 23 09/28/19 00:11 36.7 C 89 21 141/98 H 09/28/19 00:10 96 H 21 141/98 H 09/28/19 00:05 92 H 21 175/96 H 09/28/19 00:00 93 H 23 143/84 H 09/27/19 23:55 92 H 19 166/93 H 09/27/19 23:52 100 H 22 156/95 H 09/27/19 23:50 99 H 18 156/95 H 09/27/19 23:45 95 H 23 165/96 H 09/27/19 23:40 98 H 26 H 168/96 H 09/27/19 23:35 95 H 25 H 09/27/19 23:30 98 H 25 H 156/93 H 09/27/19 23:25 100 H 22 153/94 H 09/27/19 23:20 100 H 28 H 168/100 H 09/27/19 23:15 98 H 26 H 154/98 H 09/27/19 23:12 101 H 25 H 09/27/19 23:11 104 H 31 H 148/98 H 09/27/19 23:10 104 H 28 H 09/27/19 23:05 102 H 25 H 173/103 H 09/27/19 23:00 126 H 28 H 09/27/19 22:58 123 H 28 H 09/27/19 22:56 95 H 27 H 224/117 H 09/27/19 22:43 124 H 31 H 224/117 H Pulse Ox Pulse Ox 09/28/19 07:01 96 09/28/19 03:27 93 09/28/19 03:06 09/28/19 01:30 93 09/28/19 01:10 93 09/28/19 00:45 97 09/28/19 00:40 100 09/28/19 00:35 99 09/28/19 00:30 99 09/28/19 00:25 99 09/28/19 00:20 100 09/28/19 00:16 100 09/28/19 00:15 100 09/28/19 00:11 99 09/28/19 00:10 100 09/28/19 00:05 100 09/28/19 00:00 99 09/27/19 23:55 100 09/27/19 23:52 100 09/27/19 23:50 99 09/27/19 23:45 100 09/27/19 23:40 100 09/27/19 23:35 100 09/27/19 23:30 99 09/27/19 23:25 99 09/27/19 23:20 98 09/27/19 23:15 98 09/27/19 23:12 97 09/27/19 23:11 97 09/27/19 23:10 98 09/27/19 23:05 97 09/27/19 23:00 99 09/27/19 22:58 100 09/27/19 22:56 100 09/27/19 22:43 100 Laboratory Results Laboratory Results - last 24 hr 09/27/19 09/27/19 09/27/19 22:45 22:45 22:45 WBC 7.57 RBC 3.83 L Hgb 12.3 Hct 36.6 L MCV 95.6 MCH 32.1 MCHC 33.6 RDW Std Deviation 47.7 H RDW Coeff of Jimmie 13.7 Plt Count 200 MPV 9.7 Immature Gran % (Auto) 0.1 Neut % (Auto) 66.2 Lymph % (Auto) 18.6 [place] % (Auto) 7.9 Eos % (Auto) 6.9 Baso % (Auto) 0.3 Immature Gran # (Auto) 0.01 Neut # (Auto) 5.01 Lymph # (Auto) 1.41 [place] # (Auto) 0.60 H Eos # (Auto) 0.52 H Baso # (Auto) 0.02 PT 11.0 INR 1.0 APTT 26.2 PTT Ratio 0.9 ABG pH ABG pCO2 ABG pO2 ABG HCO3 ABG O2 Saturation ABG Base Excess [place] Test VBG pH VBG pCO2 VBG pO2 VBG HCO3 VBG O2 Saturation VBG Base Excess Barometric Pressure Oxygen Given Sodium 132 L Potassium 4.2 Chloride 99 Carbon Dioxide 24 Anion Gap 9.0 BUN 18 Creatinine 0.95 Est Cr Clr Drug Dosing Not Reportable Est GFR ( Amer) 64.2 Est GFR (Non-Af Amer) 55.4 BUN/Creatinine Ratio 18.8 Glucose 146 H Calcium 9.2 Magnesium 2.0 Total Bilirubin 0.9 Direct Bilirubin < 0.1 AST 21 ALT 17 Alkaline Phosphatase 91 Troponin I 0.161 H* NT-Pro-B Natriuret Pep 5806 H Total Protein 7.9 Albumin 3.8 Lipase 90 Urine Color Urine Appearance Urine pH Ur Specific [place] Urine Protein Urine Glucose (UA) Urine Ketones Urine Blood Urine Nitrite Urine Bilirubin Urine Urobilinogen Ur Leukocyte Esterase Urine WBC (Auto) Urine RBC (Auto) U Hyaline Cast (Auto) U Epithel Cells (Auto) Urine Bacteria (Auto) Nasal Screen MRSA (PCR) Influenza Type A (PCR) Influenza Type B (PCR) 09/27/19 09/27/19 09/27/19 22:55 22:58 23:05 WBC RBC Hgb Hct MCV MCH MCHC RDW Std Deviation RDW Coeff of Jimmie Plt Count MPV Immature Gran % (Auto) Neut % (Auto) Lymph % (Auto) [place] % (Auto) Eos % (Auto) Baso % (Auto) Immature Gran # (Auto) Neut # (Auto) Lymph # (Auto) [place] # (Auto) Eos # (Auto) Baso # (Auto) PT INR APTT PTT Ratio ABG pH ABG pCO2 ABG pO2 ABG HCO3 ABG O2 Saturation ABG Base Excess [place] Test VBG pH 7.28 L VBG pCO2 55 H VBG pO2 31 VBG HCO3 25 VBG O2 Saturation < 60.0 VBG Base Excess -2.3 Barometric Pressure 742.6 Oxygen Given Sodium Potassium Chloride Carbon Dioxide Anion Gap BUN Creatinine Est Cr Clr Drug Dosing Est GFR ( Amer) Est GFR (Non-Af Amer) BUN/Creatinine Ratio Glucose Calcium Magnesium Total Bilirubin Direct Bilirubin AST ALT Alkaline Phosphatase Troponin I NT-Pro-B Natriuret Pep Total Protein Albumin Lipase Urine Color Yellow Urine Appearance Clear Urine pH 6.5 Ur Specific [place] 1.010 Urine Protein 1+ H Urine Glucose (UA) Negative Urine Ketones Negative Urine Blood Negative Urine Nitrite Negative Urine Bilirubin Negative Urine Urobilinogen Negative Ur Leukocyte Esterase Negative Urine WBC (Auto) 1-5 Urine RBC (Auto) 0-4 U Hyaline Cast (Auto) 1-5 U Epithel Cells (Auto) 0-5 Urine Bacteria (Auto) Negative Nasal Screen MRSA (PCR) Influenza Type A (PCR) Neg for Influ A Influenza Type B (PCR) Neg for Influ B 09/28/19 09/28/19 09/28/19 03:03 03:30 08:22 WBC RBC Hgb Hct MCV MCH MCHC RDW Std Deviation RDW Coeff of Jimmie Plt Count MPV Immature Gran % (Auto) Neut % (Auto) Lymph % (Auto) [place] % (Auto) Eos % (Auto) Baso % (Auto) Immature Gran # (Auto) Neut # (Auto) Lymph # (Auto) [place] # (Auto) Eos # (Auto) Baso # (Auto) PT INR APTT PTT Ratio ABG pH ABG pCO2 ABG pO2 ABG HCO3 ABG O2 Saturation ABG Base Excess [place] Test VBG pH VBG pCO2 VBG pO2 VBG HCO3 VBG O2 Saturation VBG Base Excess Barometric Pressure Oxygen Given Sodium 133 L Potassium 4.1 Chloride 100 Carbon Dioxide 24 Anion Gap 9.0 BUN 18 Creatinine 0.91 Est Cr Clr Drug Dosing 47.3 Est GFR ( Amer) 67.6 Est GFR (Non-Af Amer) 58.3 BUN/Creatinine Ratio 19.6 Glucose 94 Calcium 8.5 Magnesium 1.9 Total Bilirubin Direct Bilirubin AST ALT Alkaline Phosphatase Troponin I 2.630 H* NT-Pro-B Natriuret Pep Total Protein Albumin Lipase Urine Color Urine Appearance Urine pH Ur Specific [place] Urine Protein Urine Glucose (UA) Urine Ketones Urine Blood Urine Nitrite Urine Bilirubin Urine Urobilinogen Ur Leukocyte Esterase Urine WBC (Auto) Urine RBC (Auto) U Hyaline Cast (Auto) U Epithel Cells (Auto) Urine Bacteria (Auto) Nasal Screen MRSA (PCR) Negative Influenza Type A (PCR) Influenza Type B (PCR) 09/28/19 09/28/19 09/28/19 08:22 08:22 08:42 WBC 3.91 L RBC 3.12 L Hgb 10.0 L Hct 29.6 L MCV 94.9 MCH 32.1 MCHC 33.8 RDW Std Deviation 47.1 H RDW Coeff of Jimmie 13.6 Plt Count 155 MPV 9.5 Immature Gran % (Auto) 0.3 Neut % (Auto) 65.4 Lymph % (Auto) 17.9 [place] % (Auto) 13.0 Eos % (Auto) 3.1 Baso % (Auto) 0.3 Immature Gran # (Auto) 0.01 Neut # (Auto) 2.56 Lymph # (Auto) 0.70 L [place] # (Auto) 0.51 Eos # (Auto) 0.12 Baso # (Auto) 0.01 PT INR APTT PTT Ratio ABG pH 7.47 H ABG pCO2 32 L ABG pO2 77 L ABG HCO3 23 ABG O2 Saturation 96.4 H ABG Base Excess -0.1 [place] Test Pos VBG pH VBG pCO2 VBG pO2 VBG HCO3 VBG O2 Saturation VBG Base Excess Barometric Pressure 743.6 Oxygen Given ROOM AIR Sodium Potassium Chloride Carbon Dioxide Anion Gap BUN Creatinine Est Cr Clr Drug Dosing Est GFR ( Amer) Est GFR (Non-Af Amer) BUN/Creatinine Ratio Glucose Calcium Magnesium Total Bilirubin Direct Bilirubin AST ALT Alkaline Phosphatase Troponin I 3.500 H* NT-Pro-B Natriuret Pep Total Protein Albumin Lipase Urine Color Urine Appearance Urine pH Ur Specific [place] Urine Protein Urine Glucose (UA) Urine Ketones Urine Blood Urine Nitrite Urine Bilirubin Urine Urobilinogen Ur Leukocyte Esterase Urine WBC (Auto) Urine RBC (Auto) U Hyaline Cast (Auto) U Epithel Cells (Auto) Urine Bacteria (Auto) Nasal Screen MRSA (PCR) Influenza Type A (PCR) Influenza Type B (PCR) 09/28/19 10:13 WBC RBC Hgb Hct MCV MCH MCHC RDW Std Deviation RDW Coeff of Jimmie Plt Count MPV Immature Gran % (Auto) Neut % (Auto) Lymph % (Auto) [place] % (Auto) Eos % (Auto) Baso % (Auto) Immature Gran # (Auto) Neut # (Auto) Lymph # (Auto) [place] # (Auto) Eos # (Auto) Baso # (Auto) PT INR APTT 74.0 H* PTT Ratio 2.7 ABG pH ABG pCO2 ABG pO2 ABG HCO3 ABG O2 Saturation ABG Base Excess [place] Test VBG pH VBG pCO2 VBG pO2 VBG HCO3 VBG O2 Saturation VBG Base Excess Barometric Pressure Oxygen Given Sodium Potassium Chloride Carbon Dioxide Anion Gap BUN Creatinine Est Cr Clr Drug Dosing Est GFR ( Amer) Est GFR (Non-Af Amer) BUN/Creatinine Ratio Glucose Calcium Magnesium Total Bilirubin Direct Bilirubin AST ALT Alkaline Phosphatase Troponin I NT-Pro-B Natriuret Pep Total Protein Albumin Lipase Urine Color Urine Appearance Urine pH Ur Specific [place] Urine Protein Urine Glucose (UA) Urine Ketones Urine Blood Urine Nitrite Urine Bilirubin Urine Urobilinogen Ur Leukocyte Esterase Urine WBC (Auto) Urine RBC (Auto) U Hyaline Cast (Auto) U Epithel Cells (Auto) Urine Bacteria (Auto) Nasal Screen MRSA (PCR) Influenza Type A (PCR) Influenza Type B (PCR) Medications Administered Current Inpatient Medications Acetaminophen (Tylenol) 650 mg PO Q4H PRN PRN Reason: Pain or Fever Stop: 10/28/19 01:29 Al Hydrox/Mg Hydrox/Simethicone (Maalox Max) 10 - 20 ml PO QID PRN PRN Reason: HEARTBURN/INDIGESTION/GAS Stop: 10/28/19 01:29 Aspirin (Ecotrin Ectab) 81 mg PO DAILY [facility] Stop: 10/28/19 08:59 Last Admin: 09/28/19 08:08 Dose: 81 mg Documented by: Docusate Sodium (Colace) 100 mg PO BID [facility] Stop: 10/28/19 08:59 Last Admin: 09/28/19 08:08 Dose: 100 mg Documented by: Ferrous Sulfate (Feosol) 325 mg PO BID [facility] Stop: 10/28/19 08:59 Last Admin: 09/28/19 08:08 Dose: 325 mg Documented by: Fexofenadine HCl (Lyn) 180 mg PO DAILY [facility] Stop: 10/28/19 08:59 Last Admin: 09/28/19 08:08 Dose: 180 mg Documented by: Guaifenesin (Mucinex) 1 mg PO Q12H PRN PRN Reason: Congestion Stop: 10/28/19 01:52 Guaifenesin/Dextromethorphan (Robitussin Cough-Chest Dm) 30 ml PO Q12H PRN PRN Reason: Congestion Stop: 10/28/19 01:53 Hydrocortisone (Hydrocortisone 1%) 1 appln EXT UD PRN PRN Reason: .SKIN IRRITATION Stop: 10/28/19 01:47 Heparin Sodium/Dextrose (Heparin Sodium/Dextrose) 25,000 units in 500 mls @ 25 mls/hr IV .Q20H [facility]; Protocol Stop: 10/28/19 04:14 Last Titration: 09/28/19 10:50 Dose: 1,200 units/hr, 24 mls/hr Documented by: Levofloxacin/Dextrose (Levaquin/D5w) 750 mg in 150 mls @ 100 mls/hr IV Q48H [facility] Stop: 10/05/19 03:59 Ioversol (Optiray 320 125ml) 102 ml IV ONCE PRN PRN Reason: Interaction Checking Stop: 10/02/19 01:06 Last Admin: 09/28/19 01:07 Dose: 102 ml Documented by: Labetalol HCl (Normodyne) 10 mg IV Q4H PRN PRN Reason: Hypertension Stop: 10/28/19 01:29 Lisinopril (Zestril) 5 mg PO DAILY [facility] Stop: 10/28/19 08:59 Last Admin: 09/28/19 08:08 Dose: 5 mg Documented by: Metoprolol Succinate (Toprol Xl) 12.5 mg PO DAILY [facility] Stop: 10/28/19 08:59 Last Admin: 09/28/19 08:08 Dose: 12.5 mg Documented by: Miscellaneous Information (Consult) 1 ea N/A UD PRN PRN Reason: Consult Stop: 10/28/19 03:30 Nitroglycerin (Nitrostat) 0.4 mg SL UD PRN PRN Reason: Chest Pain Stop: 10/28/19 01:29 Nitroglycerin (Nitro-Bid 2%) 1 inch EXT Q6 [facility] Stop: 10/28/19 05:59 Last Admin: 09/28/19 05:04 Dose: 1 inch Documented by: Ondansetron HCl (Zofran) 4 mg IV Q6H PRN PRN Reason: Nausea Stop: 10/28/19 01:29 Oxybutynin Chloride (Ditropan) 5 mg PO DAILY [facility] Stop: 10/28/19 08:59 Last Admin: 09/28/19 08:08 Dose: 5 mg Documented by: Pantoprazole Sodium (Protonix) 40 mg PO DAILY [facility] Stop: 10/28/19 08:59 Last Admin: 09/28/19 08:08 Dose: 40 mg Documented by: Polyethylene Glycol (Miralax Powder Packet) 17 gm PO DAILY PRN PRN Reason: Constipation Stop: 10/28/19 01:29 Sennosides (Senokot) 8.6 mg PO DAILY PRN PRN Reason: Constipation Stop: 10/28/19 01:29 Tobramycin/Dexamethasone (Tobradex Oph) 1 drops OPB QID PRN PRN Reason: NEEDED Stop: 10/28/19 01:29 Vitamin D (Vitamin D3) 1,000 units PO DAILY [facility] Stop: 10/28/19 08:59 Last Admin: 09/28/19 08:08 Dose: 1,000 units Documented by: (1) CHF exacerbation Heart failure type: unspecified Qualified Code(s): I50.9 - Heart failure, unspecified
[2019-09-28 17:19] LABS: Partial Thromboplastin Ratio 3.7
[2019-09-28 18:00] LABS: Partial Thromboplastin Time 104.5 Seconds (21.0-31.0)
--- NOTE | 2019-09-28 21:02 | Communication Note ---
Date of Service: September 28, 2019 Admitted early this morning with non-STEMI + CHF. Seen by Cardiology. Doing better. Less SOB. No chest pain. Peak troponin 3.5. Echo- severe concentric LVH, LVEF 70%. Continue aspirin, IV heparin, metoprolol, nitrates. Receiving levofloxacin for possible pneumonia. Suspect that radiographic findings are due to pulmonary edema rather than pneumonia. DC levofloxacin and follow.
[2019-09-29] MEDS: NITROGLYCERIN 2% OINTMENT 30GM TUBE EXT SCH ×2 (00:01→06:40)
[2019-09-29 01:49] LABS: Partial Thromboplastin Ratio 3.3
[2019-09-29 01:55] LABS: Partial Thromboplastin Time 93.4 Seconds (21.0-31.0)
[2019-09-29] MEDS: HEPARIN SODIUM/DEXTROSE 25,000 UNITS/500 ML BAG IV SCH (03:10)
[2019-09-29] MEDS: METOPROLOL SUCC 25MG EXT REL TAB PO SCH (08:40)
[2019-09-29] MEDS: CHOLECALCIFEROL 1,000 UNITS 25 MCG TAB PO SCH (08:40)
[2019-09-29] MEDS: OXYBUTYNIN CHLORIDE 5 MG TAB PO SCH (08:40)
[2019-09-29] MEDS: PANTOprazole 40 MG TAB PO SCH (08:40)
[2019-09-29] MEDS: FERROUS SULFATE 325 MG TAB PO SCH ×2 (08:41→20:09)
[2019-09-29] MEDS: FEXOFENADINE HCL 180 MG TAB PO SCH (08:41)
[2019-09-29] MEDS: DOCUSATE SODIUM 100 MG CAP PO SCH ×2 (08:41→20:29)
[2019-09-29] MEDS: ASPIRIN 81 MG ECTAB PO SCH (08:41)
[2019-09-29] MEDS: lisinopriL 5 MG TAB PO SCH (08:41)
[2019-09-29 09:12] LABS: Hematocrit (blood only) 31.4 % (37-47); Hemoglobin 10.7 g/dL (12.0-16.0); Mean Corpuscular Hgb Conc 34.1 g/dL (32-36); Mean Platelet Volume 9.6 fL (7.4-10.4); Platelet Count 168 K/uL (130-400); RDW Coefficient of Variation 13.5 % (11.5-14.5); RDW Standard Deviation 46.8 fL (36.4-46.3); Red Blood Count 3.34 M/uL (4.2-5.4); White Blood Count 4.14 K/uL (4.8-10.8)
[2019-09-29 09:33] LABS: BUN Creatinine Ratio 16.1 (10-20); Calcium 8.7 mg/dl (8.5-10.1); Est GFR (African American) 56.9; Est GFR (Non-African American) 49.1; Potassium 3.5 mmol/L (3.5-5.1)
[2019-09-29 09:39] LABS: Partial Thromboplastin Ratio 2.3
[2019-09-29 09:49] LABS: Partial Thromboplastin Time 65.5 Seconds (21.0-31.0)
[2019-09-29] MEDS ORDERED: lisinopriL 5 MG TAB PO ONE (10:27)
--- NOTE | 2019-09-29 10:34 | Cardiology Progress Note ---
Date of Service September 29, 2019 Assessment & Plan (1) NSTEMI (non-ST elevated myocardial infarction): (2) CHF exacerbation: (3) S/P AVR: The patient is clinically stable and I believe out of congestive heart failure. I am going to discontinue her heparin. Her echocardiogram indicates normal systolic function and no significant wall motion abnormalities. The prosthetic valve appears to be functioning appropriately. I will stop her heparin today. I encouraged her to become a little bit more active and she will have her walker today. No additional cardiac testing is indicated. She does well she is a potential discharge for tomorrow. Subjective The patient has no current complaints. She has had no chest pain. She denies shortness of breath. Her heart rhythm is stable on telemetry. Review of Systems Review of Systems: All systems reviewed & are unremarkable except as noted in HPI & below Nothing additional to add. Physical Exam Physical Exam: General: no acute distress and stated age Head: normocephalic, no masses, lesions, tenderness or abnormalities Eyes: conjunctiva are pink and non-injected, sclera clear Neck: supple, no adenopathy, no bruits, normal jugular venous pulse, no hepatojugular reflux Chest: normal shape and normal respiratory effort Lungs: clear to auscultation and percussion Cardiac Exam: - regular rate & rhythm, systolic murmur- normal S1, normal S2 Pulses: 2(+) throughout Abdomen: abdomen soft, non-tender, no abnormal masses and no hepatosplenomegaly Musculoskeletal: no gait disturbance, no joint inflammation, no deforming arthritis Extremities: no edema and no cyanosis Neuro: grossly normal exam Results & Data Vital Signs (Past 12 Hours) Vital Signs Temp Pulse Pulse Resp BP Pulse Ox 09/29/19 07:02 36.6 C 67 18 161/74 H 96 09/29/19 04:25 36.6 C 68 18 115/66 96 09/28/19 23:19 37.0 C 67 18 118/60 96 Laboratory Results Laboratory Results - last 24 hr 09/28/19 09/28/19 09/28/19 10:13 14:17 16:51 WBC RBC Hgb Hct MCV MCH MCHC RDW Std Deviation RDW Coeff of Jimmie Plt Count MPV APTT 74.0 H* 104.5 H* PTT Ratio 2.7 3.7 Sodium Potassium Chloride Carbon Dioxide Anion Gap BUN Creatinine Est Cr Clr Drug Dosing Est GFR ( Amer) Est GFR (Non-Af Amer) BUN/Creatinine Ratio Glucose Calcium Magnesium Troponin I 2.580 H* Triglycerides Cholesterol LDL Cholesterol, Calc VLDL Cholesterol, Calc HDL Cholesterol Cholesterol/HDL Ratio 09/29/19 09/29/19 09/29/19 01:09 08:53 08:53 WBC 4.14 L RBC 3.34 L Hgb 10.7 L Hct 31.4 L MCV 94.0 MCH 32.0 MCHC 34.1 RDW Std Deviation 46.8 H RDW Coeff of Jimmie 13.5 Plt Count 168 MPV 9.6 APTT 93.4 H* PTT Ratio 3.3 Sodium 131 L Potassium 3.5 Chloride 99 Carbon Dioxide 24 Anion Gap 8.0 BUN 17 Creatinine 1.05 Est Cr Clr Drug Dosing 41.0 Est GFR ( Amer) 56.9 Est GFR (Non-Af Amer) 49.1 BUN/Creatinine Ratio 16.1 Glucose 158 H Calcium 8.7 Magnesium 2.0 Troponin I Triglycerides 76 Cholesterol 185 LDL Cholesterol, Calc 129 VLDL Cholesterol, Calc 15 HDL Cholesterol 41 Cholesterol/HDL Ratio 5 09/29/19 08:53 WBC RBC Hgb Hct MCV MCH MCHC RDW Std Deviation RDW Coeff of Jimmie Plt Count MPV APTT 65.5 H* PTT Ratio 2.3 Sodium Potassium Chloride Carbon Dioxide Anion Gap BUN Creatinine Est Cr Clr Drug Dosing Est GFR ( Amer) Est GFR (Non-Af Amer) BUN/Creatinine Ratio Glucose Calcium Magnesium Troponin I Triglycerides Cholesterol LDL Cholesterol, Calc VLDL Cholesterol, Calc HDL Cholesterol Cholesterol/HDL Ratio Medications Administered Current Inpatient Medications Acetaminophen (Tylenol) 650 mg PO Q4H PRN PRN Reason: Pain or Fever Stop: 10/28/19 01:29 Al Hydrox/Mg Hydrox/Simethicone (Maalox Max) 10 - 20 ml PO QID PRN PRN Reason: HEARTBURN/INDIGESTION/GAS Stop: 10/28/19 01:29 Aspirin (Ecotrin Ectab) 81 mg PO DAILY [facility] Stop: 10/28/19 08:59 Last Admin: 09/29/19 08:41 Dose: 81 mg Documented by: Docusate Sodium (Colace) 100 mg PO BID [facility] Stop: 10/28/19 08:59 Last Admin: 09/29/19 08:41 Dose: 100 mg Documented by: Ferrous Sulfate (Feosol) 325 mg PO BID [facility] Stop: 10/28/19 08:59 Last Admin: 09/29/19 08:41 Dose: 325 mg Documented by: Fexofenadine HCl (Lyn) 180 mg PO DAILY [facility] Stop: 10/28/19 08:59 Last Admin: 09/29/19 08:41 Dose: 180 mg Documented by: Furosemide (Lasix) 20 mg PO QAM [facility] Stop: 10/29/19 10:29 Guaifenesin (Mucinex) 1 mg PO Q12H PRN PRN Reason: Congestion Stop: 10/28/19 01:52 Guaifenesin/Dextromethorphan (Robitussin Cough-Chest Dm) 30 ml PO Q12H PRN PRN Reason: Congestion Stop: 10/28/19 01:53 Hydrocortisone (Hydrocortisone 1%) 1 appln EXT UD PRN PRN Reason: .SKIN IRRITATION Stop: 10/28/19 01:47 Heparin Sodium/Dextrose (Heparin Sodium/Dextrose) 25,000 units in 500 mls @ 18 mls/hr IV .Q24H [facility]; Protocol Stop: 10/28/19 04:14 Last Titration: 09/29/19 09:51 Dose: 900 units/hr, 18 mls/hr Documented by: Ioversol (Optiray 320 125ml) 102 ml IV ONCE PRN PRN Reason: Interaction Checking Stop: 10/02/19 01:06 Last Admin: 09/28/19 01:07 Dose: 102 ml Documented by: Labetalol HCl (Normodyne) 10 mg IV Q4H PRN PRN Reason: Hypertension Stop: 10/28/19 01:29 Lisinopril (Zestril) 10 mg PO DAILY [facility] Stop: 10/30/19 08:59 Metoprolol Succinate (Toprol Xl) 12.5 mg PO DAILY [facility] Stop: 10/28/19 08:59 Last Admin: 09/29/19 08:40 Dose: 12.5 mg Documented by: Nitroglycerin (Nitrostat) 0.4 mg SL UD PRN PRN Reason: Chest Pain Stop: 10/28/19 01:29 Ondansetron HCl (Zofran) 4 mg IV Q6H PRN PRN Reason: Nausea Stop: 10/28/19 01:29 Oxybutynin Chloride (Ditropan) 5 mg PO DAILY [facility] Stop: 10/28/19 08:59 Last Admin: 09/29/19 08:40 Dose: 5 mg Documented by: Pantoprazole Sodium (Protonix) 40 mg PO DAILY [facility] Stop: 10/28/19 08:59 Last Admin: 09/29/19 08:40 Dose: 40 mg Documented by: Polyethylene Glycol (Miralax Powder Packet) 17 gm PO DAILY PRN PRN Reason: Constipation Stop: 10/28/19 01:29 Sennosides (Senokot) 8.6 mg PO DAILY PRN PRN Reason: Constipation Stop: 10/28/19 01:29 Tobramycin/Dexamethasone (Tobradex Oph) 1 drops OPB QID PRN PRN Reason: NEEDED Stop: 10/28/19 01:29 Vitamin D (Vitamin D3) 1,000 units PO DAILY [facility] Stop: 10/28/19 08:59 Last Admin: 09/29/19 08:40 Dose: 1,000 units Documented by: (1) CHF exacerbation Heart failure type: unspecified Qualified Code(s): I50.9 - Heart failure, unspecified
[2019-09-29] MEDS: FUROSEMIDE 20 MG TAB PO SCH (11:58)
--- NOTE | 2019-09-29 13:16 | Electrocardiogram Report ---
Test Reason : Blood Pressure : / mmHG Vent. Rate : 095 BPM Atrial Rate : 095 BPM P-R Int : 238 ms QRS Dur : 088 ms QT Int : 356 ms P-R-T Axes : 061 073 079 degrees QTc Int : 447 ms Sinus rhythm with 1st degree A-V block Possible Left atrial enlargement Left ventricular hypertrophy Nonspecific ST abnormality Abnormal ECG When compared with ECG of 09-MAY-2017 19:32, OR interval has increased ST now depressed in Lateral leads Confirmed by Yoshi Sandoval ([id number]) on 09/29/2019 1:16:14 PM Referred By: REFERRED SELF Confirmed By:Yoshi Sandoval
--- NOTE | 2019-09-29 21:43 | Hospitalist Progress Note ---
Date of Service September 29, 2019 Assessment & Plan (1) NSTEMI (non-ST elevated myocardial infarction): Presented with respiratory distress. Found to be in pulmonary edema. EKG showed NSR with lateral ST depression. Serial troponin 0.161 at time of admission and luis enrique as high as 3.5. Cardiology consulted. [place] to have non-ST elevation [place]. Echo showed LVEF > 70 without segmental wall motion abnormalities. Initially received aspirin, IV heparin, metoprolol, nitrates. Heparin discontinued. (2) CHF exacerbation: History of CHF attributed in past to valvular heart disease. Acute on chronic CHF at time of admission due to left ventricular diastolic heart failure. Echo showed LVEF > 70 without segmental wall motion abnormalities. Received diuretics with improvement. (3) Acute respiratory failure with hypoxia: Patient was respiratory arrest when EMS arrived at her personal [facility]. O2 saturation was around 80%. BiPAP was applied for ventilatory support. Hypoxia most likely secondary to pulmonary edema from CHF. CTA negative for pulmonary embolism. Imaging showed some pulmonary infiltrates, but favor pulmonary edema rather than pneumonia. Oxygenation improved. (4) S/P AVR: Echocardiogram showed normal structure and function of bioprosthetic aortic valve replacement. (5) Hypertension: Cardiovascular medications as noted above. (6) DVT prophylaxis: Initially received intravenous heparin due to acute coronary syndrome. Transition to subcutaneous heparin. Ambulate. (7) Discharge planning issues: Anticipated return to [facility]. Medical follow-up with Dr. Gayle. Cardiology follow-up with Dr. Lynne. Admission and Anticipated Discharge Date Admission Date: September 28, 2019 Subjective Recheck for [place] & CHF. Patient seen in their room around 1840. Doing well. No chest pain or chest pressure. Less SOB. No edema. Seen earlier today by Dr. Lynne and given good report. Review of Systems: Constitutional- no fever. Cardiac- as noted above. Pulmonary- as noted above. GI- no nausea, vomiting, diarrhea, melena, hematochezia. - no urinary symptoms. Otherwise, as noted above. Physical Exam Constitutional: no acute distress Respiratory: no respiratory distress Auscultation: lungs clear to ausculta tion bilaterally Cardiovascular: Rate/Rhythm: regular rate and regular rhythm Heart Sounds: + murmur (II/ sys murmur at base); no gallop and no cardiac rub Vessels: no JVD Extremities: no calf tenderness and no edema Gastrointestinal (Abdomen): normal bowel sounds, soft, nontender, no hepatosplenomegaly Skin: no rashes, warm and dry Psychiatric: Orientation: alert and oriented x 3 Results & Data ([facility] Vital Signs (Past 12 Hours) Vital Signs Temp Pulse Pulse Resp BP Pulse Ox 09/29/19 18:56 36.5 C 63 17 138/70 98 09/29/19 15:26 36.7 C 62 20 125/62 98 09/29/19 14:47 66 09/29/19 11:06 36.6 C 64 17 125/67 97 Laboratory Results 09/29/19 08:53 09/29/19 08:53 (1) CHF exacerbation Heart failure type: unspecified Qualified Code(s): I50.9 - Heart failure, unspecified (2) Hypertension Hypertension type: unspecified Qualified Code(s): I10 - Essential (primary) hypertension
[2019-09-30] MEDS ORDERED: LEVOFLOXACIN/D5W 750 MG/150 ML BAG IV SCH (03:00)
--- NOTE | 2019-09-30 07:35 | XRay Report ---
XR chest 1V portable CLINICAL HISTORY: CHF dyspnea COMPARISON STUDY: 09/27/2019 FINDINGS: Improved aeration of both hemithoraces. Diaphragms are smooth. No evidence for focal infilt rate at the current time. Findings were prior median sternotomy are stable. IMPRESSION: Improved exam with the lungs now considered clear. ACT 112: Negative or not required by law. The above report was generated using voice recognition software. It may contain grammatical, syntax or spelling errors. Electronically signed by: Carlos Albarado M.D. 09/30/2019 7:34 AM
[2019-09-30] MEDS: FEXOFENADINE HCL 180 MG TAB PO SCH (07:58)
[2019-09-30] MEDS: OXYBUTYNIN CHLORIDE 5 MG TAB PO SCH (07:58)
[2019-09-30] MEDS: lisinopriL 10 MG TAB PO SCH (07:58)
[2019-09-30] MEDS: FERROUS SULFATE 325 MG TAB PO SCH ×2 (07:58→21:50)
[2019-09-30] MEDS: FUROSEMIDE 20 MG TAB PO SCH (07:58)
[2019-09-30] MEDS: CHOLECALCIFEROL 1,000 UNITS 25 MCG TAB PO SCH (07:58)
[2019-09-30] MEDS: METOPROLOL SUCC 25MG EXT REL TAB PO SCH (07:58)
[2019-09-30] MEDS: ASPIRIN 81 MG ECTAB PO SCH (07:59)
[2019-09-30] MEDS: PANTOprazole 40 MG TAB PO SCH (07:59)
[2019-09-30] MEDS: HEPARIN SOD 5,000 UNIT/0.5 ML VIAL SQ SCH ×2 (08:00→21:50)
[2019-09-30] MEDS: DOCUSATE SODIUM 100 MG CAP PO SCH ×2 (08:04→21:52)
[2019-09-30 08:19] LABS: BUN Creatinine Ratio 17.6 (10-20); Calcium 8.9 mg/dl (8.5-10.1); Creatinine Clr Calc Pharmacy 45.3 ml/min; Est GFR (African American) 64.2; Est GFR (Non-African American) 55.4; Potassium 4.1 mmol/L (3.5-5.1)
--- NOTE | 2019-09-30 13:37 | Cardiology Progress Note ---
Date of Service September 30, 2019 Assessment & Plan (1) NSTEMI (non-ST elevated myocardial infarction): (2) CHF exacerbation: (3) S/P AVR: The patient is doing much better. She does have some crackles over the right lung field which may be resolving pneumonia. I do not believe that she is in congestive heart failure. I would continue current treatment. Subjective Patient is doing better. She has actually been ambulating in the [place] without complaint. Review of Systems Review of Systems: All systems reviewed & are unremarkable except as noted in HPI & below Nothing additional to add. Physical Exam Physical Exam: General: no acute distress and stated age Head: normocephalic, no masses, lesions, tenderness or abnormalities Eyes: conjunctiva are pink and non-injected, sclera clear Neck: supple, no adenopathy, no bruits, normal jugular venous pulse, no hepatojugular reflux Chest: normal shape and normal respiratory effort Lungs: clear to auscultation and percussion Cardiac Exam: - regular rate & rhythm, no murmurs gallops or rubs - normal S1, normal S2 Pulses: 2(+) throughout Abdomen: abdomen soft, non-tender, no abnormal masses and no hepatosplenomegaly Musculoskeletal: no gait disturbance, no joint inflammation, no deforming arthritis Extremities: no edema and no cyanosis Neuro: grossly normal exam Results & Data Vital Signs (Past 12 Hours) Vital Signs Temp Pulse Pulse Resp BP BP Pulse Ox 09/30/19 11:22 36.6 C 64 18 112/76 97 09/30/19 07:10 64 09/30/19 06:43 36.9 C 61 18 149/57 H 96 09/30/19 03:23 37.2 C 74 20 129/67 95 Laboratory Results Laboratory Results - last 24 hr 09/30/19 07:28 Sodium 135 L Potassium 4.1 D Chloride 103 Carbon Dioxide 26 Anion Gap 6.0 BUN 17 Creatinine 0.95 Est Cr Clr Drug Dosing 45.3 Est GFR ( Amer) 64.2 Est GFR (Non-Af Amer) 55.4 BUN/Creatinine Ratio 17.6 Glucose 89 Calcium 8.9 Medications Administered Current Inpatient Medications Acetaminophen (Tylenol) 650 mg PO Q4H PRN PRN Reason: Pain or Fever Stop: 10/28/19 01:29 Al Hydrox/Mg Hydrox/Simethicone (Maalox Max) 10 - 20 ml PO QID PRN PRN Reason: HEARTBURN/INDIGESTION/GAS Stop: 10/28/19 01:29 Aspirin (Ecotrin Ectab) 81 mg PO DAILY [facility] Stop: 10/28/19 08:59 Last Admin: 09/30/19 07:59 Dose: 81 mg Documented by: Docusate Sodium (Colace) 100 mg PO BID [facility] Stop: 10/28/19 08:59 Last Admin: 09/30/19 08:04 Dose: 100 mg Documented by: Ferrous Sulfate (Feosol) 325 mg PO BID [facility] Stop: 10/28/19 08:59 Last Admin: 09/30/19 07:58 Dose: 325 mg Documented by: Fexofenadine HCl (Lyn) 180 mg PO DAILY [facility] Stop: 10/28/19 08:59 Last Admin: 09/30/19 07:58 Dose: 180 mg Documented by: Furosemide (Lasix) 20 mg PO QAM [facility] Stop: 10/29/19 10:29 Last Admin: 09/30/19 07:58 Dose: 20 mg Documented by: Guaifenesin (Mucinex) 1 mg PO Q12H PRN PRN Reason: Congestion Stop: 10/28/19 01:52 Guaifenesin/Dextromethorphan (Robitussin Cough-Chest Dm) 30 ml PO Q12H PRN PRN Reason: Congestion Stop: 10/28/19 01:53 Heparin Sodium (Porcine) (Heparin Sodium (Porcine)) 5,000 units SQ Q12 [facility] Stop: 10/30/19 08:59 Last Admin: 09/30/19 08:00 Dose: 5,000 units Documented by: Hydrocortisone (Hydrocortisone 1%) 1 appln EXT UD PRN PRN Reason: .SKIN IRRITATION Stop: 10/28/19 01:47 Ioversol (Optiray 320 125ml) 102 ml IV ONCE PRN PRN Reason: Interaction Checking Stop: 10/02/19 01:06 Last Admin: 09/28/19 01:07 Dose: 102 ml Documented by: Labetalol HCl (Normodyne) 10 mg IV Q4H PRN PRN Reason: Hypertension Stop: 10/28/19 01:29 Lisinopril (Zestril) 10 mg PO DAILY [facility] Stop: 10/30/19 08:59 Last Admin: 09/30/19 07:58 Dose: 10 mg Documented by: Metoprolol Succinate (Toprol Xl) 12.5 mg PO DAILY [facility] Stop: 10/28/19 08:59 Last Admin: 09/30/19 07:58 Dose: 12.5 mg Documented by: Nitroglycerin (Nitrostat) 0.4 mg SL UD PRN PRN Reason: Chest Pain Stop: 10/28/19 01:29 Ondansetron HCl (Zofran) 4 mg IV Q6H PRN PRN Reason: Nausea Stop: 10/28/19 01:29 Oxybutynin Chloride (Ditropan) 5 mg PO DAILY [facility] Stop: 10/28/19 08:59 Last Admin: 09/30/19 07:58 Dose: 5 mg Documented by: Pantoprazole Sodium (Protonix) 40 mg PO DAILY [facility] Stop: 10/28/19 08:59 Last Admin: 09/30/19 07:59 Dose: 40 mg Documented by: Polyethylene Glycol (Miralax Powder Packet) 17 gm PO DAILY PRN PRN Reason: Constipation Stop: 10/28/19 01:29 Sennosides (Senokot) 8.6 mg PO DAILY PRN PRN Reason: Constipation Stop: 10/28/19 01:29 Tobramycin/Dexamethasone (Tobradex Oph) 1 drops OPB QID PRN PRN Reason: NEEDED Stop: 10/28/19 01:29 Vitamin D (Vitamin D3) 1,000 units PO DAILY [facility] Stop: 10/28/19 08:59 Last Admin: 09/30/19 07:58 Dose: 1,000 units Documented by: (1) CHF exacerbation Heart failure type: unspecified Qualified Code(s): I50.9 - Heart failure, unspecified
--- NOTE | 2019-09-30 20:44 | Hospitalist Progress Note ---
Date of Service September 30, 2019 Assessment & Plan (1) NSTEMI (non-ST elevated myocardial infarction): Presented with respiratory distress. Found to be in pulmonary edema. EKG showed NSR with lateral ST depression. Serial troponin 0.161 at time of admission and luis enrique as high as 3.5. Cardiology consulted. [place] to have non-ST elevation [place]. Echo showed LVEF > 70 without segmental wall motion abnormalities. Initially received aspirin, IV heparin, metoprolol, nitrates. Heparin discontinued. Increase activity. (2) CHF exacerbation: History of CHF attributed in past to valvular heart disease. Acute on chronic CHF at time of admission due to left ventricular diastolic heart failure. Echo showed LVEF > 70 without segmental wall motion abnormalities. Received diuretics with improvement. (3) Acute respiratory failure with hypoxia: Patient was respiratory arrest when EMS arrived at her personal [facility]. O2 saturation was around 80%. BiPAP was applied for ventilatory support. Hypoxia most likely secondary to pulmonary edema from CHF. CTA negative for pulmonary embolism. Imaging showed some pulmonary infiltrates, but favor pulmonary edema rather than pneumonia. Oxygenation improved. (4) S/P AVR: Echocardiogram showed normal structure and function of bioprosthetic aortic valve replacement. (5) Hypertension: Cardiovascular medications as noted above. (6) DVT prophylaxis: Initially received intravenous heparin due to acute coronary syndrome. Transition to subcutaneous heparin. Ambulate. (7) Discharge planning issues: Anticipated return to [facility]. Medical follow-up with Dr. Gayle. Cardiology follow-up with Dr. Lynne. Admission and Anticipated Discharge Date Admission Date: September 28, 2019 Subjective Recheck for [place] & CHF. Patient seen in their room around 1850. Doing well. No chest pain or chest pressure. Less SOB. No edema. Conrad removed and voiding without difficulty. Ambulating. Review of Systems: Constitutional- no fever. Cardiac- as noted above. Pulmonary- as noted above. GI- no nausea, vomiting, diarrhea, melena, hematochezia. - no urinary symptoms. Otherwise, as noted above. Physical Exam Constitutional: no acute distress Respiratory: no respiratory distress Auscultation: lungs clear to auscultation bilaterally Cardiovascular: Rate/Rhythm: regular rate and regular rhythm Heart Sounds: + murmur (II/ sys murmur at base); no gallop and no cardiac rub Vessels: no JVD Extremities: + edema (trace pretibial); no calf tenderness Gastrointestinal (Abdomen): normal bowel sounds, soft, nontender, no hepatosplenomegaly Skin: no rashes, warm and dry Psychiatric: Orientation: alert and oriented x 3 Results & Data ([facility] Vital Signs (Past 12 Hours) Vital Signs Temp Pulse Pulse Resp BP Pulse Ox 09/30/19 19:29 36.6 C 66 18 123/70 95 09/30/19 16:10 36.7 C 65 19 125/67 93 09/30/19 16:00 64 09/30/19 11:22 36.6 C 64 18 112/76 97 Laboratory Results 09/29/19 08:53 09/30/19 07:28 (1) CHF exacerbation Heart failure type: unspecified Qualified Code(s): I50.9 - Heart failure, unspecified (2) Hypertension Hypertension type: unspecified Qualified Code(s): I10 - Essential (primary) hypertension
[2019-10-01 08:16] LABS: BUN Creatinine Ratio 22.4 (10-20); Calcium 8.6 mg/dl (8.5-10.1); Creatinine Clr Calc Pharmacy 51.8 ml/min; Est GFR (African American) 75.6; Est GFR (Non-African American) 65.2; Potassium 3.7 mmol/L (3.5-5.1)
[2019-10-01] MEDS: DOCUSATE SODIUM 100 MG CAP PO SCH (09:53)
[2019-10-01] MEDS: lisinopriL 10 MG TAB PO SCH (09:53)
[2019-10-01] MEDS: FEXOFENADINE HCL 180 MG TAB PO SCH (09:53)
[2019-10-01] MEDS: FERROUS SULFATE 325 MG TAB PO SCH (09:53)
[2019-10-01] MEDS: CHOLECALCIFEROL 1,000 UNITS 25 MCG TAB PO SCH (09:53)
[2019-10-01] MEDS: OXYBUTYNIN CHLORIDE 5 MG TAB PO SCH (09:53)
[2019-10-01] MEDS: PANTOprazole 40 MG TAB PO SCH (09:53)
[2019-10-01] MEDS: FUROSEMIDE 20 MG TAB PO SCH (09:53)
[2019-10-01] MEDS: ASPIRIN 81 MG ECTAB PO SCH (09:53)
[2019-10-01] MEDS: HEPARIN SOD 5,000 UNIT/0.5 ML VIAL SQ SCH (09:55)
[2019-10-01] MEDS: METOPROLOL SUCC 25MG EXT REL TAB PO SCH (09:55)
[2019-10-01] MEDS ORDERED: guaiFENesin 600 MG TABCR PO PRN (11:22)
--- NOTE | 2019-10-01 11:27 | Hospitalist Progress Note ---
Date of Service October 01, 2019 Assessment & Plan (1) NSTEMI (non-ST elevated myocardial infarction): Presented with respiratory distress. Found to be in pulmonary edema. EKG showed NSR with lateral ST depression. Serial troponin 0.161 at time of admission and luis enrique as high as 3.5. Cardiology consulted. [place] to have non-ST elevation [place]. Echo showed LVEF > 70 without segmental wall motion abnormalities. Initially received aspirin, IV heparin, metoprolol, nitrates. Heparin discontinued. Cardiology discussed options with patient and she indicated that she did not wish to undergo further testing (e.g., cardiac cath). Activity increased; ambulating with walker. Discharge on aspirin, metoprolol, statin. (2) CHF exacerbation: History of CHF attributed in past to valvular heart disease. Acute on chronic CHF at time of admission due to left ventricular diastolic heart failure. Echo showed LVEF > 70 without segmental wall motion abnormalities. Received diuretics with improvement. TRAVIS not specifically indicated for diastolic heart failure, but pt is on lisinopril. Discharge on furosemide 20 mg daily. CHF instructions given. (3) Acute respiratory failure with hypoxia: Patient was respiratory arrest when EMS arrived at [facility]. O2 saturation was around 80%. BiPAP was applied for ventilatory support. Hypoxia most likely secondary to pulmonary edema from CHF. CTA negative for pulmonary embolism. Imaging showed some pulmonary infiltrates, but favor pulmonary edema rather than pneumonia. Oxygenation improved; supplemental oxygen weaned and discontinued. (4) S/P AVR: Echocardiogram showed normal structure and function of bioprosthetic aortic valve replacement. (5) Hypertension: Cardiovascular medications as noted above. (6) Dyslipidemia: LDL-c = 129. Start atorvastatin 40 mg daily. (7) DVT prophylaxis: Initially received intravenous heparin due to acute coronary syndrome. Transitioned to subcutaneous heparin. Ambulating. (8) Discharge planning issues: Returning to [facility]. Medical follow-up with Dr. Gayle. Cardiology follow-up with Dr. Lynne. Admission and Anticipated Discharge Date Admission Date: September 28, 2019 Subjective Recheck for [place] & CHF. Patient seen in their room around 1100. Doing well. Only complaint is some nasal congestion. No chest pain or chest pressure. No SOB. Ambulating. Ready to return to [facility]. Review of Systems: Constitutional- no fever. Cardiac- as noted above. Pulmonary- as noted above. GI- no nausea, vomiting, diarrhea, melena, hematochezia. - Conrad removed yesterday. Otherwise, as noted above. Physical Exam Constitutional: no acute distress Respiratory: no respiratory distress Auscultation: lungs clear to auscultation bilaterally Cardiovascular: Rate/Rhythm: regular rate and regular rhythm Heart Sounds: + murmur (II/ sys murmur at base); no gallop and no cardiac rub Vessels: no JVD Extremities: + edema (trace pretibial); no calf tenderness Gastrointestinal (Abdomen): normal bowel sounds, soft, nontender, no hepatosplenomegaly Skin: no rashes, warm and dry Psychiatric: Orientation: alert and oriented x 3 Results & Data ([facility]) Vital Signs (Past 12 Hours) Vital Signs Temp Pulse Pulse Resp BP BP Pulse Ox 10/01/19 07:23 61 10/01/19 07:10 37.4 C 63 18 136/67 94 10/01/19 04:26 36.4 C L 66 18 157/74 H 96 10/01/19 00:00 68 09/30/19 23:56 36.8 C 64 18 154/73 H 95 Laboratory Results 10/01/19 07:00 (1) CHF exacerbation Heart failure type: unspecified Qualified Code(s): I50.9 - Heart failure, unspecified (2) Hypertension Hypertension type: unspecified Qualified Code(s): I10 - Essential (primary) hypertension
--- NOTE | 2019-10-01 12:09 | Cardiology Progress Note ---
Date of Service October 01, 2019 Assessment & Plan (1) NSTEMI (non-ST elevated myocardial infarction): (2) CHF exacerbation: (3) S/P AVR: Believe the patient is ready for discharge and outpatient follow-up. I will arrange follow-up through our clinic. She should return home on her current medications. Usually we would provide dual antiplatelet therapy but given her age and frailty I would prefer aspirin only. She should continue her other medications including the metoprolol which was started this admission. Subjective The patient is doing well. She is eating lunch. She has been ambulating in the hallway. No chest pain. Review of Systems Review of Systems: All systems reviewed & are unremarkable except as noted in HPI & below Nothing additional to add. Physical Exam Physical Exam: General: no acute distress and stated age Head: normocephalic, no masses, lesions, tenderness or abnormalities Eyes: conjunctiva are pink and non-injected, sclera clear Neck: supple, no adenopathy, no bruits, normal jugular venous pulse, no hepatojugular reflux Chest: normal shape and normal respiratory effort Lungs: clear to auscultation and percussion Cardiac Exam: - regular rate & rhythm, no murmurs gallops or rubs - normal S1, normal S2 Pulses: 2(+) throughout Abdomen: abdomen soft, non-tender, no abnormal masses and no hepatosplenomegaly Musculoskeletal: no gait disturbance, no joint inflammation, no deforming arthritis Extremities: no edema and no cyanosis Neuro: grossly normal exam Results & Data Vital Signs (Past 12 Hours) Vital Signs Temp Pulse Pulse Resp BP BP Pulse Ox 10/01/19 11:38 36.7 C 67 18 175/76 H 98 10/01/19 07:23 61 10/01/19 07:10 37.4 C 63 18 136/67 94 10/01/19 04:26 36.4 C L 66 18 157/74 H 96 Laboratory Results Laboratory Results - last 24 hr 10/01/19 07:00 Sodium 135 L Potassium 3.7 Chloride 104 Carbon Dioxide 23 Anion Gap 7.0 BUN 19 H Creatinine 0.83 Est Cr Clr Drug Dosing 51.8 Est GFR ( Amer) 75.6 Est GFR (Non-Af Amer) 65.2 BUN/Creatinine Ratio 22.4 H Glucose 90 Calcium 8.6 Medications Administered Current Inpatient Medications Acetaminophen (Tylenol) 650 mg PO Q4H PRN PRN Reason: Pain or Fever Stop: 10/28/19 01:29 Al Hydrox/Mg Hydrox/Simethicone (Maalox Max) 10 - 20 ml PO QID PRN PRN Reason: HEARTBURN/INDIGESTION/GAS Stop: 10/28/19 01:29 Aspirin (Ecotrin Ectab) 81 mg PO DAILY [facility] Stop: 10/28/19 08:59 Last Admin: 10/01/19 09:53 Dose: 81 mg Documented by: Docusate Sodium (Colace) 100 mg PO BID [facility] Stop: 10/28/19 08:59 Last Admin: 10/01/19 09:53 Dose: 100 mg Documented by: Ferrous Sulfate (Feosol) 325 mg PO BID [facility] Stop: 10/28/19 08:59 Last Admin: 10/01/19 09:53 Dose: 325 mg Documented by: Fexofenadine HCl (Lyn) 180 mg PO DAILY [facility] Stop: 10/28/19 08:59 Last Admin: 10/01/19 09:53 Dose: 180 mg Documented by: Furosemide (Lasix) 20 mg PO QAM [facility] Stop: 10/29/19 10:29 Last Admin: 10/01/19 09:53 Dose: 20 mg Documented by: Guaifenesin (Mucinex) 1 mg PO Q12H PRN PRN Reason: Congestion Stop: 10/28/19 01:52 Guaifenesin (Mucinex) 600 mg PO BID PRN PRN Reason: nasal or chest congestion Stop: 10/31/19 11:29 Guaifenesin/Dextromethorphan (Robitussin Cough-Chest Dm) 30 ml PO Q12H PRN PRN Reason: Congestion Stop: 10/28/19 01:53 Heparin Sodium (Porcine) (Heparin Sodium (Porcine)) 5,000 units SQ Q12 [place] Stop: 10/30/19 08:59 Last Admin: 10/01/19 09:55 Dose: 5,000 units Documented by: Hydrocortisone (Hydrocortisone 1%) 1 appln EXT UD PRN PRN Reason: .SKIN IRRITATION Stop: 10/28/19 01:47 Ioversol (Optiray 320 125ml) 102 ml IV ONCE PRN PRN Reason: Interaction Checking Stop: 10/02/19 01:06 Last Admin: 09/28/19 01:07 Dose: 102 ml Documented by: Labetalol HCl (Normodyne) 10 mg IV Q4H PRN PRN Reason: Hypertension Stop: 10/28/19 01:29 Lisinopril (Zestril) 10 mg PO DAILY [facility] Stop: 10/30/19 08:59 Last Admin: 10/01/19 09:53 Dose: 10 mg Documented by: Metoprolol Succinate (Toprol Xl) 12.5 mg PO DAILY [facility] Stop: 10/28/19 08:59 Last Admin: 10/01/19 09:55 Dose: 12.5 mg Documented by: Nitroglycerin (Nitrostat) 0.4 mg SL UD PRN PRN Reason: Chest Pain Stop: 10/28/19 01:29 Ondansetron HCl (Zofran) 4 mg IV Q6H PRN PRN Reason: Nausea Stop: 10/28/19 01:29 Oxybutynin Chloride (Ditropan) 5 mg PO DAILY [facility] Stop: 10/28/19 08:59 Last Admin: 10/01/19 09:53 Dose: 5 mg Documented by: Pantoprazole Sodium (Protonix) 40 mg PO DAILY [facility] Stop: 10/28/19 08:59 Last Admin: 10/01/19 09:53 Dose: 40 mg Documented by: Polyethylene Glycol (Miralax Powder Packet) 17 gm PO DAILY PRN PRN Reason: Constipation Stop: 10/28/19 01:29 Sennosides (Senokot) 8.6 mg PO DAILY PRN PRN Reason: Constipation Stop: 10/28/19 01:29 Tobramycin/Dexamethasone (Tobradex Oph) 1 drops OPB QID PRN PRN Reason: NEEDED Stop: 10/28/19 01:29 Vitamin D (Vitamin D3) 1,000 units PO DAILY [facility] Stop: 10/28/19 08:59 Last Admin: 10/01/19 09:53 Dose: 1,000 units Documented by: (1) CHF exacerbation Heart failure type: unspecified Qualified Code(s): I50.9 - Heart failure, unspecified
--- NOTE | 2019-10-01 14:39 | Discharge Summary ---
Date of Service Date of Admission: 09/28/19 Date of Discharge: 10/01/19 Admission HPI Per Admitting Provider This 84-year-old female who is currently to [facility] resident since couple of years since her fracture to right femur. 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 The patient states she was feeling extremely short of breath and could not take breathe and EMS was called in and she was hypoxic at 80% and blood pressure was high into 240s, thus was placed on BiPAP , IV Lasix given and brought to the hospital. In the ER, blood pressure in the 220s and placed on nitro drip.She was also tachypneic. She was placed on BiPAP. ABG was done which showed venous blood gas was pH of 7.2, pCO2 of 55. Rest of the labs show creatinine of 0.9, troponin of 0.1. BNP 5800. Influenza A and B was negative. Chest x-ray showed some emphysema, right basilar atelectasis. The patient was started on nitro drip, her blood pressure improved and eventually respirations improved. Currently resting comfortably and was able to talk in full sentences, alert and oriented. She says she has had cough for last 2 days, bringing somewhat whitish phlegm. Denies any fever, chills. Maybe she has some mild runny nose. Denies any sore throat, no fever, no chills, no chest pain, no headaches, no blurred vision, no earache, no runny nose. She ambulates with a walker. Denies any nausea, no abdominal pain. Appetite is okay. Normal bowel and bladder movements. Last bowel movement was couple of days ago and no blood in the stools. No hematuria or burning micturitions. She always has some mild swelling in the lower extremities. The patient's code status is DNR/DNI. Principal Diagnosis non-ST elevation myocardial infarction OTHER ACUTE / NEW DIAGNOSES: acute left ventricular diastolic heart failure dyslipidemia Discharge Data Allergies Allergy/AdvReac Type Severity Reaction Status Date / Time allopurinol Allergy Unknown [place] Verified 09/27/19 23:17 [place] [facility] bacitracin [From Neocidin] Allergy Unknown Unknown Verified 10/01/19 14:38 Cephalosporins Allergy Unknown [place] Verified 09/27/19 23:17 [place] LIST gramicidin D [From Neocidin] Allergy Unknown Unknown Verified 10/01/19 14:38 neomycin [From Neocidin] Allergy Unknown Unknown Verified 10/01/19 14:38 polymyxin B [From Neocidin] Allergy Unknown Unknown Verified 10/01/19 14:38 NEOMYCIN/POLY/GRAM EYE DROPS Allergy Unknown [place] Uncoded 09/27/19 23:17 [place] [facility] Consultations 09/27/19 23:45 ED Decision to Admit Stat 09/28/19 01:30 Consult Case Management - Discharge Planning Routine 09/28/19 08:00 Consult Cardiology Routine Ordered Studies 09/28/19 00:27 CT angio chest PE protocol Urgent Hospital Course (1) NSTEMI (non-ST elevated myocardial infarction): Presented with respiratory distress and found to be in pulmonary edema. EKG showed NSR with lateral ST depression. Troponin 0.161 at time of admission and luis enrique as high as 3.5. Cardiology consulted. [place] to have non-ST elevation ID. Echo showed LVEF > 70 without segmental wall motion abnormalities. Initially received aspirin, IV heparin, metoprolol, nitrates. Heparin discontinued. Cardiology discussed options with patient and she indicated that she did not wish to undergo further testing (e.g., cardiac cath). Activity increased; ambulating with walker. Discharge on aspirin, metoprolol, statin. (2) CHF exacerbation: History of CHF attributed in past to valvular heart disease. Acute on chronic CHF at time of admission due to left ventricular diastolic heart failure. Echo showed LVEF > 70 without segmental wall motion abnormalities. Received diuretics with improvement. TRAVIS not specifically indicated for diastolic heart failure, but pt is on lisinopril. Discharge on furosemide 20 mg daily. CHF instructions given. (3) Acute respiratory failure with hypoxia: Patient was in respiratory distress when EMS arrived at her personal custodial. O2 saturation was around 80%. BiPAP was applied for ventilatory support. Hypoxia most likely secondary to pulmonary edema from CHF. CTA negative for pulmonary embolism. Imaging showed some pulmonary infiltrates, but favor pulmonary edema rather than pneumonia. Oxygenation improved; supplemental oxygen weaned and discontinued. (4) S/P AVR: Echocardiogram showed normal structure and function of bioprosthetic aortic valve replacement. (5) Hypertension: Cardiovascular medications as noted above. (6) Dyslipidemia: LDL-c = 129. Start atorvastatin 40 mg daily. (7) DVT prophylaxis: Initially received intravenous heparin due to acute coronary syndrome. Transitioned to subcutaneous heparin. Ambulating. (8) Discharge planning issues: Returning to [facility]. Medical follow-up with Dr. Gayle. Cardiology follow-up with Dr. Lynne. Total Time Total Time Spent Total Time Spent (In Minutes): 40 Discharge Plan Discharge Items Patient Disposition: Personal [facility] Reason For Visit: shortness of breath Discharge Diagnosis: myocardial infarction congestive heart failure Condition on Discharge: Good Activity: As commented below Activity Comment: Gradually increase activity as tolerated. Rest as necessary. Non-emergency contact: Primary Care Provider, Hospitalist and Quarryman Call non-emergency contact if: you have any medication questions and your symptoms worsen Follow-up/Referrals: Brayan Lynne, [Quarryman] - (Office will contact you with follow-up appointment.) [place] [employer] [facility], [facility] [Primary Care Provider] - (Please ask Dr. Gayle for check-up within 1 week.) Diet: Heart Healthy Addtl Attending Provider Instructions: MEDICATION CHANGES: Continue aspirin to help prevent heart attacks and strokes. Continue metoprolol for blood pressure control and heart. Increase lisinopril to 10 mg daily, for blood pressure control and heart. Start atorvastatin (Lipitor) 40 mg daily to lower cholesterol and reduce risk of heart attack and stroke. Nitroglycerin under tongue as needed for chest pain. May repeat in 5 minutes. Call 911 if no relief. SUMMARY OF TEST RESULTS: Blood work showed elevated troponin, indicating a myocardial infarction. Echocardiogram showed that heart muscle is strong and there was not any significant damage. OTHER INSTRUCTIONS: Seek medical attention if you have: * temperature above 101 * chest pain or trouble breathing * abdominal pain, nausea, vomiting * diarrhea, dark stools or bloody stools * any unanswered questions or concerns Call 911 if symptoms are severe. Please take good care of yourself. Call if you have any questions or problems. You can reach a [facility] hospitalist on duty at [facility] 24 hours a day by calling [phone]. My cell # is [phone]. INSTRUCTIONS FOR CONGESTIVE HEART FAILURE: Call 911 and go to the Emergency Room if: * You have tightness or pain in your chest that does not go away with rest or Nitroglycerin * You are very short of breath even with rest Call your doctor if any of the following symptoms or problems start or get worse: * Shortness of breath or difficulty breathing * Wake up at night short of breath * Chest pain * Cough * Swelling of your hands, fee, or legs * More fatigued or tired with your normal activity * Palpitations - sudden fast heart beats WEIGHT * Weigh yourself every morning after using the bathroom. * Use the same scale. * Wear the same amount of clothing. * Write your weight down on your chart. * Call your doctor if you gain more than 2-3 pounds in 1-2 days. MEDICATIONS * Use this discharge instruction sheet for instructions. * Take your medications at the time your doctor ordered. * Do not skip a dose of your medicines. * If you miss a dose of medicine, take as soon as possible, but DO NOT DOUBLE A DOSE. * Read your medicine information when you get home. * Know all of the side effects of your medicine. * Call your doctor's office if you have any side effects. * Be sure all of your doctors know what medicine and herbs you take (including cold, flu, and herbal medicine). * Pain Medicine: If you do not get relief from your pain, please call your doctor for help. Take the following with you to your follow-up doctor appointments: * Weight Chart * Medication List * List of questions Do not drink excessive alcohol, beer or wine. Pending Studies at Discharge: No Stand-Alone Forms: My [employer], Smoking Cessation Skilled Items Patient informed of condition?: Yes DNR: Yes Discharge Level of Care: Other Communicable Disease: No Discharge Prognosis: Improving Lines: None Urinary Catheter: No Medications and DC Order Prescriptions: New nitroglycerin [Nitrostat] 0.4 mg Tablet, Sublingual 0.4 mg sublingual UD PRN (Reason: chest pain) Qty: 25 RF: 2 lisinopril 10 mg Tablet 10 mg PO DAILY Qty: 30 RF: 5 atorvastatin 40 mg tablet 40 mg PO DAILY Qty: 30 RF: 5 Continued aspirin [Aspirin Low Dose] 81 mg Tablet,Delayed Release (Dr/Ec) 81 mg PO DAILY RF: 0 docusate sodium 100 mg Capsule 100 mg PO BID RF: 0 furosemide 20 mg Tablet 20 mg PO DAILYBB RF: 0 metoprolol succinate 25 mg Tablet Extended Release 24 Hr 12.5 mg PO DAILY RF: 0 cholecalciferol (vitamin D3) 1,000 unit Tablet 1,000 unit PO DAILY RF: 0 acetaminophen [Acetaminophen Extra Strength] 500 mg Tablet 500 mg PO Q4 MDD 3 GRAMS/24 HOURS PRN (Reason: Pain) RF: 0 amoxicillin 500 mg Tablet 2,000 mg PO DAILY PRN (Reason: prior to dental procedures) RF: 0 ferrous sulfate 325 mg (65 mg iron) Tablet 325 mg PO BID RF: 0 sennosides 8.6 mg Tablet 8.6 mg PO DAILY PRN (Reason: Constipation) RF: 0 fexofenadine 180 mg Tablet 180 mg PO DAILY RF: 0 hydrocortisone 1 % Cream 1 applic TOPICAL DIRECTED PRN (Reason: Skin Irritation) RF: 0 omeprazole 20 mg Capsule,Delayed Release(Dr/Ec) 20 mg PO DAILY RF: 0 Mucinex DM 30-600 mg Tablet Extended Release 12 Hr 1 tab PO Q12H PRN (Reason: Congestion) RF: 0 oxybutynin chloride 5 mg Tablet 5 mg PO DAILY RF: 0 Antacid-Simethicone 400-400-40 mg/5 mL Suspension 10 - 20 ml PO QID PRN (Reason: HEARTBURN/INDIGESTION/GAS) RF: 0 tobramycin-dexamethasone [TobraDex] 0.3-0.1 % Drops,Suspension 1 drp OPB QID PRN (Reason: NEEDED) RF: 0 Rosemarie Protect Cream 1 applic TOPICAL DAILY PRN (Reason: Skin Irritation) RF: 0 Discontinued lisinopril 5 mg Tablet 5 mg PO DAILY RF: 0 Discharge Orders: Discharge Order (Routine); Ordered 10/01/19 Ordered By: Pan Mcmillan Admission Data Admit Date/Time: 09/28/19 00:15 Attending Provider: Pan Mcmillan Admit Provider: Natan Giraldo Primary Care Provider: [place] [facility], [facility] Other Providers: Natan Giraldo ; Brayan Lynne
== END 2019-10-01 15:55 | disposition home or self-care (01) | DRG 280 ==
LOC: ED 22:49 → 2E 09-28 00:15 → 2S 09-28 12:56

== ENCOUNTER 2019-10-23 07:25 | Inpatient (IN) ==
--- NOTE | 2019-10-23 07:33 | Emergency Department Note ---
History of Present Illness General Chief Complaint: Chest Pain Stated Complaint: chest pain / [facility] Source: patient Mode of arrival: EMS Limitations: no limitations History of Present Illness Provider Complaint: chest pain Onset (ago): hour(s) 1 Duration: constant and now resolved Onset: during exertion (Walking to the bathroom and back to her bed) Pain Location: substernal Severity: mild Quality: + other (Pain) Relieved By: + nitroglycerin Exacerbated By: + exertion Context: no recent illness and no recent travel Associated symptoms: + dyspnea Treatments prior to arrival: aspirin and nitroglycerin The patient presents to the ED from a local nursing facility. She states that she developed chest pain around 6:30 AM when she walked to the bathroom and back to her bed. She states that it was not as bad as her recent chest pain where she was diagnosed with a UT. The patient reports associated shortness of breath. Her symptoms resolved by the time she arrived here. EMS provided 3 nitroglycerin sublingual as well as 324 of aspirin p.o. The patient currently has no complaint. EMS did report lessening of her ST depressions in the lateral leads since her pain resolved. Home Medications Home Medications Medication Instructions Recorded Confirmed Type aspirin [Aspirin Low Dose] 81 mg PO DAILY 06/11/18 10/23/19 History cholecalciferol (vitamin D3) 1,000 unit PO DAILY 06/11/18 10/23/19 History docusate sodium 100 mg PO BID 06/11/18 10/23/19 History furosemide 20 mg PO DAILYBB 06/11/18 10/23/19 History metoprolol succinate 12.5 mg PO DAILY 06/11/18 10/23/19 History acetaminophen [Acetaminophen Extra 500 mg PO Q4 PRN MDD 3 GRAMS/24 07/29/18 10/23/19 History Strength] HOURS amoxicillin 2,000 mg PO DAILY PRN 07/29/18 10/23/19 History ferrous sulfate 325 mg PO BID 07/29/18 10/23/19 History Antacid-Simethicone 10 - 20 ml PO QID PRN 09/27/19 10/23/19 History Rosemarie Protect 1 applic TOPICAL DAILY PRN 09/27/19 10/23/19 History Mucinex DM 1 tab PO Q12H PRN 09/27/19 10/23/19 History fexofenadine 180 mg PO DAILY 09/27/19 10/23/19 History hydrocortisone 1 applic TOPICAL DIRECTED PRN 09/27/19 10/23/19 History omeprazole 20 mg PO DAILY 09/27/19 10/23/19 History oxybutynin chloride 5 mg PO DAILY 09/27/19 10/23/19 History sennosides 8.6 mg PO DAILY PRN 09/27/19 10/23/19 History tobramycin-dexamethasone [TobraDex] 1 drp OPB QID PRN 09/27/19 10/23/19 History atorvastatin 40 mg PO DAILY #30 tab 10/01/19 10/23/19 Rx lisinopril 10 mg PO DAILY #30 tab 10/01/19 10/23/19 Rx nitroglycerin [Nitrostat] 0.4 mg SUBLINGUAL UD PRN #25 tab 10/01/19 10/23/19 Rx Allergies Allergy/AdvReac Type Severity Reaction Status Date / Time allopurinol Allergy Unknown ON Verified 10/23/19 07:54 [place] [facility] L[facility] Cephalosporins Allergy Unknown ON Verified 10/23/19 07:54 [place] [facility] LIST gramicidin D [From Neocidin] Allergy Unknown Unknown Verified 10/23/19 07:54 neomycin [From Neocidin] Allergy Unknown Unknown Verified 10/23/19 07:54 polymyxin B [From Neocidin] Allergy Unknown Unknown Verified 10/23/19 07:54 Past Med/Surg History Medical History (Updated 10/23/19 @ 10:02 by Brendan Pratt DO) Aortic valve stenosis Cervical cancer 1997--sx Chronic diastolic heart failure Chronic kidney disease, stage 3 (moderate) Diverticular disease Dyslipidemia Gout Gout History of colon polyps History of esophageal dilatation History of falling Hypertension NSTEMI (non-ST elevated myocardial infarction) 09/2019 Osteoarthritis Polymyalgia rheumatica Schatzki's ring Status post closed fracture of right femur Surgical History H/O aortic valve replacement 09/2007 @ [facility] [place] H/O cataract extraction H/O total hysterectomy History of breast biopsy History of cardiac cath 08/20/2007 History of cholecystectomy History of colonoscopy History of esophagogastroduodenoscopy (EGD) History of vein stripping x2 Family History Mother Rectal cancer Social History Preferred Language: Bel[place]ian Communication Ability: Effective Lining Scrubber Required: No Beliefs That Will Affect Care: None Current Living Situation: Personal Care Facility Current Living Situation Comment: [facility] current occupational status: retired Other Information That Helps Us Care for You: No Feels Safe at Home: Yes Safety Concerns: Feels Safe At This Time Smoking Status: Former smoker Do You Dip or Chew Tobacco: No ; Second Hand Exposure: No ; Tobacco Cessation Education Requested by Patient: No Hx Alcohol Use: No Hx Substance Use: No Review of Systems A total of 10 systems reviewed and were otherwise negative Physical Exam Vital Signs Vital Signs - 24 hr 10/23/19 07:30 10/23/19 07:31 10/23/19 08:00 Temperature 36.7 C Temperature Source Oral Pulse Rate 81 71 61 Pulse Rate from SpO2 Sensor 70 62 Respiratory Rate 22 16 18 Respiratory Effort / Characteristics Non-Labored Spontaneous Respiratory Depth Normal Blood Pressure 172/82 H 157/83 H 149/70 H Blood Pressure Mean 112 97 74 Blood Pressure Position Sitting Pulse Oximetry 92 93 92 Oxygen Delivery Method Room Air Sepsis Recent Fever Within 48 Hours No Sepsis Action Taken by Nursing No Action Required 10/23/19 08:30 Temperature Temperature Source Pulse Rate 58 L Pulse Rate from SpO2 Sensor 57 L Respiratory Rate 16 Respiratory Effort / Characteristics Respiratory Depth Blood Pressure 168/77 H Blood Pressure Mean 103 Blood Pressure Position Pulse Oximetry 94 Oxygen Delivery Method Sepsis Recent Fever Within 48 Hours Sepsis Action Taken by Nursing CONSTITUTIONAL/VITAL SIGNS: Reviewed / noted above. GENERAL: Non-toxic in appearance. INTEGUMENTARY: Warm, dry, and [place]. HEAD: Normocephalic. EYES: without scleral icterus or trauma. ENT/OROPHARYNX: clear and moist. LYMPHADENOPATHY/NECK: Is supple without lymphadenopathy or meningismus. RESPIRATORY: Lungs clear and equal. CARDIOVASCULAR: Regular rate and rhythm. GI/ABDOMEN: Soft and nontender. No organomegaly or pulsatile mass. No rebound or guarding. Normal bowel sounds. EXTREMITIES: Warm and well perfused. BACK: No CVA tenderness. NEUROLOGICAL: Intact without focal deficits. PSYCHIATRIC: normal affect. MUSCULOSKELETAL: Normally developed with good muscle tone. TRIAGE NURSING DOCUMENTATION REVIEWED. Medical Decision Making Differential Diagnosis The differential that was considered includes acute myocardial infarction, acute coronary syndrome, myocarditis, pericarditis, pericardial effusions /tamponade, esophageal perforation, thoracic aortic dissection, pulmonary embolism, pneumonia, pneumothorax, pancreatitis, shingles, acute cholecystitis, perforated abdominal viscus. Medical Records Attestation: I reviewed the patient's medical records. Home Medications Current Medication List: was personally reviewed by me Laboratory Data Attestation: I reviewed the patient's lab results. Result diagrams: 10/23/19 06:59 10/23/19 06:59 Labs: Lab Results 10/23/19 10/23/19 10/23/19 Range/Units 06:59 06:59 06:59 WBC 6.02 (4.8-10.8) K/uL RBC 3.61 L (4.2-5.4) M/uL Hgb 11.4 L (12.0-16.0) g/dL Hct 34.1 L (37-47) % MCV 94.5 (80-100) fL MCH 31.6 (25-34) pg MCHC 33.4 (32-36) g/dL RDW Std Deviation 46.8 H (36.4-46.3) fL RDW Coeff of Jimmie 13.5 (11.5-14.5) % Plt Count 217 (130-400) K/uL MPV 9.6 (7.4-10.4) fL Immature Gran % (Auto) 0.2 % Neut % (Auto) 61.5 % Lymph % (Auto) 21.4 % [place] % (Auto) 7.1 % Eos % (Auto) 9.3 % Baso % (Auto) 0.5 % Immature Gran # (Auto) 0.01 (0.00-0.02) K/uL Neut # (Auto) 3.70 (1.4-6.5) K/uL Lymph # (Auto) 1.29 (1.2-3.4) K/uL [place] # (Auto) 0.43 (0.11-0.59) K/uL Eos # (Auto) 0.56 H (0-0.5) K/uL Baso # (Auto) 0.03 (0-0.2) K/uL PT 10.8 (9.0-12.0) Seconds INR 1.0 (0.9-1.1) APTT 26.5 (21.0-31.0) Seconds PTT Ratio 0.9 Sodium 134 L (136-145) mmol/L Potassium 3.7 (3.5-5.1) mmol/L Chloride 103 (98-107) mmol/L Carbon Dioxide 23 (21-32) mmol/L Anion Gap 7.0 (3-11) BUN 15 (7-18) mg/dl Creatinine 0.99 (0.6-1.2) mg/dl Est Cr Clr Drug Dosing 42.3 ml/min Est GFR ( Amer) 61.1 Est GFR (Non-Af Amer) 52.7 BUN/Creatinine Ratio 15.2 (10-20) Glucose 110 H (70-99) mg/dl Calcium 9.7 (8.5-10.1) mg/dl Total Bilirubin 1.2 H (0.2-1) mg/dl AST 22 (15-37) U/L ALT 22 (12-78) U/L Alkaline Phosphatase 82 (45-117) U/L Total Creatine Kinase 77 (26-192) U/L Troponin I 0.032 (0-0.045) ng/ml Total Protein 7.8 (6.4-8.2) gm/dl Albumin 4.0 (3.4-5.0) gm/dl Globulin 3.8 (2.5-4.0) gm/dl Albumin/Globulin Ratio 1.1 (0.9-2) Lipase 122 (73-393) U/L Imaging Data Chest x-ray: Radiologist's impression: XR chest 1V portable CLINICAL HISTORY: 84 years-old Female presenting with Chest Pain. TECHNIQUE: Portable upright AP view of the chest was obtained. COMPARISON: 09/30/2019 and CTA chest from 09/28/2019. FINDINGS: Median sternotomy wires and prosthetic aortic valve noted. Atherosclerosis of the aortic arch. Cardiac silhouette mildly enlarged. Lungs are mildly hyperinflated. Heterogeneous radiolucency of the lungs. Minimal bibasilar opacity. No new focal opacity. No large effusion or pneumothorax. Osteopenia. Degenerative changes of the spine. IMPRESSION: 1. Minimal bibasilar atelectasis or scarring may be present. No focal infiltrate to suggest pneumonia. 2. Hyperinflation may suggest underlying emphysema or other obstructive lung disease. ECG Data Attestation: I personally reviewed and interpreted this ECG as follows: Indication: chest pain Rate (beats per minute): 75 Rhythm: normal sinus Findings: + ST depression (Lateral); no PVC and no ST elevation Additional Comments: I did compare the twelve-lead EKG performed here compared to the twelve-lead EKG performed by EMS. The patient had more significant ST depressions in the lateral leads on the twelve-lead from EMS. These ST depressions seem to have improved with chest pain improvement after nitroglycerin and aspirin. Blood Pressure Blood Pressure Findings: Elevated blood pressure MDM Narrative The patient presents to the ED with a chief complaint of chest pain that started at 630 this morning with some exertion going to the bathroom back to her bedroom. She was recently diagnosed with an UT. EMS provided 3 nitroglycerin and aspirin. Her chest pain resolved. The patient's twelve-lead EKG for EMS showed significant ST depressions in the lateral leads. These seem to have improved with chest pain improvement after the nitro. The patient's exam was unremarkable. Her vital signs are stable. Chest x-ray was negative for acute disease. CBC and chemistry panel was unremarkable. Troponin was negative. Due to the patient's resolving EKG changes after nitro and her chest pain that resolved after nitro, her symptoms seem to be anginal in nature and the patient will be seen by the hospitalist for further evaluation and care. Impression & Plan Angina pectoris, unstable, Acute electrocardiogram changes Discharge Plan Visit Data *Final* Discharge Date/Time: 10/23/19 09:07 Chief Complaint: Chest Pain Stated Complaint: chest pain / [facility] ED Provider: Brendan Pratt Discharge Problem: Angina pectoris, unstable, Acute electrocardiogram changes Patient Disposition: Admitted As Inpatient Discharge Instructions Interventions: ED Discharge Assessment Last Done: 10/23/19 09:07
[2019-10-23 07:44] LABS: Basophils # (auto) 0.03 K/uL (0-0.2); Basophils % (auto) 0.5 %; Eosinophils # (auto) 0.56 K/uL (0-0.5); Eosinophils % (auto) 9.3 %; Hematocrit (blood only) 34.1 % (37-47); Hemoglobin 11.4 g/dL (12.0-16.0); Immature Granulocytes # (auto) 0.01 K/uL (0.00-0.02); Immature Granulocytes % (auto) 0.2 %; Lymphocytes # (auto) 1.29 K/uL (1.2-3.4); Lymphocytes % (auto) 21.4 %; Mean Corpuscular Hemoglobin 31.6 pg (25-34); Mean Corpuscular Hgb Conc 33.4 g/dL (32-36); Mean Corpuscular Volume 94.5 fL (80-100); Mean Platelet Volume 9.6 fL (7.4-10.4); Monocytes # (auto) 0.43 K/uL (0.11-0.59); Monocytes % (auto) 7.1 %; Neutrophils % (auto) 61.5 %; Platelet Count 217 K/uL (130-400); RDW Coefficient of Variation 13.5 % (11.5-14.5); RDW Standard Deviation 46.8 fL (36.4-46.3); Red Blood Count 3.61 M/uL (4.2-5.4); White Blood Count 6.02 K/uL (4.8-10.8)
[2019-10-23 08:00] LABS: BUN Creatinine Ratio 15.2 (10-20); Calcium 9.7 mg/dl (8.5-10.1); Creatinine Clr Calc Pharmacy 42.3 ml/min; Est GFR (African American) 61.1; Est GFR (Non-African American) 52.7; Partial Thromboplastin Ratio 0.9; Partial Thromboplastin Time 26.5 Seconds (21.0-31.0); Potassium 3.7 mmol/L (3.5-5.1); Prothrombin Time 10.8 Seconds (9.0-12.0)
--- NOTE | 2019-10-23 08:00 | XRay Report ---
XR chest 1V portable CLINICAL HISTORY: 84 years-old Female presenting with Chest Pain. TECHNIQUE: Portable upright AP view of the chest was obtained. COMPARISON: 09/30/2019 and CTA chest from 09/28/2019. FINDINGS: Median sternotomy wires and prosthetic aortic valve noted. Atherosclerosis of the aortic arch. Cardia c silhouette mildly enlarged. Lungs are mildly hyperinflated. Heterogeneous radiolucency of the lungs . Minimal bibasilar opacity. No new focal opacity. No large effusion or pneumothorax. Osteopenia. Deg enerative changes of the spine. IMPRESSION: 1. Minimal bibasilar atelectasis or scarring may be present. No focal infiltrate to suggest pneumoni a. 2. Hyperinflation may suggest underlying emphysema or other obstructive lung disease. ACT 112: Negative or not required by law. Electronically signed by: Justin Rae M.D. 10/23/2019 7:59 AM
[2019-10-23 08:05] LABS: Albumin Globulin Ratio 1.1 (0.9-2); Bilirubin,Total 1.2 mg/dl (0.2-1); Globulin 3.8 gm/dl (2.5-4.0); Total Protein 7.8 gm/dl (6.4-8.2); Troponin I 0.032 ng/ml (0-0.045)
--- NOTE | 2019-10-23 09:18 | History & Physical Report ---
Date of Service October 23, 2019 Assessment & Plan (1) Angina pectoris: Pt is 84 y/o F with PMH recent NSTEMI in 09/2019, HTN, h/o AVR bioprosthetic valve in 2007, chronic diastolic CHF, CKD III, chronic anemia presented to ER with complaint of chest pain today with mild SOB. Relieved with 3 sprays nitro. Patient with history of hospitalization at [facility] 09/28/2019-10/01/2019 for NSTEMI, CHF exacerbation, acute respiratory failure. During that admission initial troponin 0 0.16 trended up to 3.5. Echo with EF > 70%, no wall motion abnormality. Patient declined cardiac catheterization. Treated medically In ER afebrile, P: 81, R: 22 down to 16, BP: 172/82 down to 157/83, 93% on RA. Initial troponin: 0.03. EKG sinus rhythm, 1st degree AV block, ST depression anterior lead. Prior EKG from 09/27/[address] depression lateral leads Angina. R/O ACS -Pt remained CP free in ER -Will admit and repeat troponin. If elevating will need cardiology consultation -Spoke with cardiology, Dr Figueroa recommended repeat trop and if negative can return home. Recommended adding Imdur 30mg daily and increasing metoprolol from 12.5mg daily to 25mg daily -Continue atorvastatin, aspirin -Nitro prn CP and repeat EKG for CP (2) Hypertension: -Continue lisinopril (3) Chronic diastolic heart failure: Appears euvolemic -Continue lasix (4) S/P AVR: Bioprosthetic valve in 2007 (5) CKD (chronic kidney disease), stage III: Cr: 0.9. At baseline -Avoid nephrotoxic agents when possible DVT Prophylaxis -Heparin SQ DNR/DNI as per discussion with pt Follows with Dr Gayle at [facility] for routine care Pt was seen and care coordinated with Dr Torres. See addendum History of Present Illness Chief Complaint: CP Primary Care Provider: [facility], [employer] [facility] Pt is 84 y/o F with PMH recent NSTEMI in 09/2019, HTN, h/o AVR bioprosthetic valve in 2007, chronic diastolic CHF, CKD III, chronic anemia presented to ER with complaint of chest pain today. Patient with history of hospitalization at [facility] 09/28/2019-10/01/2019 for NSTEMI, CHF exacerbation, acute respiratory failure. During that admission initial troponin 0 0.16 trended up to 3.5. Echo with EF > 70%, no wall motion abnormality. Was initially treated with heparin. Patient declined cardiac catheterization. Patient was discharged on aspirin, metoprolol, statin, Lasix 20 mg daily. Today patient states got up was in bathroom when she started with anterior chest pain and heaviness with associated mild shortness of breath. Denies nausea, vomiting, diaphoresis, dizziness, palpitations. Patient states this felt like her chest pain with recent admission however chest pain was not as severe and was not as short of breath. Patient states walked from the bathroom and sat on edge of her bed and chest pain and shortness of breath lessened. EMS gave patient 3 sprays of nitroglycerin with resolution of chest pain and shortness of breath. It is reported EKG by EMS showed ST depression lateral leads which had improved upon ER arrival. Denies fever/chills, diarrhea, constipation, HENLEY, dizziness, syncope, vision changes, neck pain, orthopnea, palpitations, cough, sore throat, choking, otalgia, rhinorrhea, abdominal pain, paresthesias, weakness, extremity weakness, increased extremity edema, rashes, urinary symptoms. Allergies Allergy/AdvReac Type Severity Reaction Status Date / Time allopurinol Allergy Unknown ON [place] Verified 10/23/19 07:54 [facility] Cephalosporins Allergy Unknown ON [place] Verified 10/23/19 07:54 [facility] [facility] gramicidin D [From Neocidin] Allergy Unknown Unknown Verified 10/23/19 07:54 neomycin [From Neocidin] Allergy Unknown Unknown Verified 10/23/19 07:54 polymyxin B [From Neocidin] Allergy Unknown Unknown Verified 10/23/19 07:54 Home Medications Home Medications Medication Instructions Recorded Confirmed Type aspirin [Aspirin Low Dose] 81 mg PO DAILY 06/11/18 10/23/19 History cholecalciferol (vitamin D3) 1,000 unit PO DAILY 06/11/18 10/23/19 History docusate sodium 100 mg PO BID 06/11/18 10/23/19 History furosemide 20 mg PO DAILYBB 06/11/18 10/23/19 History metoprolol succinate 12.5 mg PO DAILY 06/11/18 10/23/19 History acetaminophen [Acetaminophen Extra 500 mg PO Q4 PRN MDD 3 GRAMS/24 07/29/18 10/23/19 History Strength] HOURS amoxicillin 2,000 mg PO DAILY PRN 07/29/18 10/23/19 History ferrous sulfate 325 mg PO BID 07/29/18 10/23/19 History Antacid-Simethicone 10 - 20 ml PO QID PRN 09/27/19 10/23/19 History Rosemarie Protect 1 applic TOPICAL DAILY PRN 09/27/19 10/23/19 History Mucinex DM 1 tab PO Q12H PRN 09/27/19 10/23/19 History fexofenadine 180 mg PO DAILY 09/27/19 10/23/19 History hydrocortisone 1 applic TOPICAL DIRECTED PRN 09/27/19 10/23/19 History omeprazole 20 mg PO DAILY 09/27/19 10/23/19 History oxybutynin chloride 5 mg PO DAILY 09/27/19 10/23/19 History sennosides 8.6 mg PO DAILY PRN 09/27/19 10/23/19 History tobramycin-dexamethasone [TobraDex] 1 drp OPB QID PRN 09/27/19 10/23/19 History atorvastatin 40 mg PO DAILY #30 tab 10/01/19 10/23/19 Rx lisinopril 10 mg PO DAILY #30 tab 10/01/19 10/23/19 Rx nitroglycerin [Nitrostat] 0.4 mg SUBLINGUAL UD PRN #25 tab 10/01/19 10/23/19 Rx Past Med/Surg History Medical History (Updated 10/23/19 @ 10:02 by Brendan Pratt DO) Aortic valve stenosis Cervical cancer 1997--sx Chronic diastolic heart failure Chronic kidney disease, stage 3 (moderate) Diverticular disease Dyslipidemia Gout Gout History of colon polyps History of esophageal dilatation History of falling Hypertension NSTEMI (non-ST elevated myocardial infarction) 09/2019 Osteoarthritis Polymyalgia rheumatica Schatzki's ring Status post closed fracture of right femur Surgical History H/O aortic valve replacement 09/2007 @ [facility] [place] H/O cataract extraction H/O total hysterectomy History of breast biopsy History of cardiac cath 08/20/2007 History of cholecystectomy History of colonoscopy History of esophagogastroduodenoscopy (EGD) History of vein stripping x2 Family History Mother Rectal cancer Social History Preferred Language: Mauritian Communication Ability: Effective Furnace Erector Required: No Beliefs That Will Affect Care: None Current Living Situation: Personal Care Facility Current Living Situation Comment: [facility] current occupational status: retired Other Information That Helps Us Care for You: No Feels Safe at Home: Yes Safety Concerns: Feels Safe At This Time Smoking Status: Former smoker Do You Dip or Chew Tobacco: No ; Second Hand Exposure: No ; Tobacco Cessation Education Requested by Patient: No Hx Alcohol Use: No Hx Substance Use: No Review of Systems Review of Systems: All systems reviewed & are unremarkable except as noted in HPI & below Physical Exam Physical Exam: General: no distress, WDWN Head: normocephalic, atraumatic Eyes: PERRL, EOM's intact, conjunctiva non-injected, anicteric ENT: normal inspection external ears, nose, mucous membranes moist Neck: supple, trachea midline Lungs: clear, no respiratory distress, no wheezing/rhonchi/rales CV: RRR, +systolic murmur, no JVD, trace pretibial edema Abd: normal BS, soft, non-tender Ext: no cyanosis, no calf tenderness Neuro: A&O x 3, no focal deficits noted, normal affect Skin: warm, dry Results & Data Results & Data ([facility]) Vital Signs (Past 12 Hours) Vital Signs Temp Pulse Resp BP Pulse Ox 10/23/19 09:00 63 15 150/73 H 92 10/23/19 08:30 58 L 16 168/77 H 94 10/23/19 08:00 61 18 149/70 H 92 10/23/19 07:31 71 16 157/83 H 93 10/23/19 07:30 36.7 C 81 22 172/82 H 92 Laboratory Results Short CBC 10/23/19 10/23/19 Range/Units 06:59 06:59 WBC 6.02 (4.8-10.8) K/uL Hgb 11.4 L (12.0-16.0) g/dL Hct 34.1 L (37-47) % Plt Count 217 (130-400) K/uL Troponin I 0.032 (0-0.045) ng/ml BMP 10/23/19 06:59 Sodium 134 L Potassium 3.7 Chloride 103 Carbon Dioxide 23 BUN 15 Creatinine 0.99 Glucose 110 H Calcium 9.7 Cardiac Enzymes 10/23/19 Range/Units 06:59 Total Creatine Kinase 77 (26-192) U/L Troponin I 0.032 (0-0.045) ng/ml Liver Function 10/23/19 Range/Units 06:59 Total Bilirubin 1.2 H (0.2-1) mg/dl AST 22 (15-37) U/L ALT 22 (12-78) U/L Alkaline Phosphatase 82 (45-117) U/L Albumin 4.0 (3.4-5.0) gm/dl Diagnostic Findings CXR: IMPRESSION: 1. Minimal bibasilar atelectasis or scarring may be present. No focal infiltrate to suggest pneumonia. 2. Hyperinflation may suggest underlying emphysema or other obstructive lung disease. ECG Rate (beats per minute): 75 Rhythm: sinus rhythm Findings: + 1st degree AV block Additional Comments: ST depression anterior 09/27/2019 EKG sinus rhythm with ST depression lateral Code Status & VTE Plan VTE Prophylaxis Plan VTE Prophylaxis will be ordered: Yes Supervising Physician Co-Signing Physician Notes I saw this patient with the physician real estate assistant, I participated in the history, physical, review of systems, and physical exam. I reviewed the medications with the patient and the physician real estate assistant and helped reconcile the medications. I helped take a detailed family and social history as well. I formulated the assessment and plan personally with the physician real estate assistant and went over it with the patient. Physical Exam Gen-AAO x 3, NAD, Afebrile Head-NCAT, EOMI, PERRLA, Anicteric Sclera, No Posterior Pharyngeal Erythema Neck-Supple, No JVD, No Thyromegaly, No Masses, No LAD, No Bruits Lungs-Clear to Auscultation Bilaterally, No Rales, No Rhonchi, No Wheezing, No Crepitus Chest-No S4, +S1, +S2, No S3, No Murmurs, No Rubs, No Gallops, No Ectopy Abdomen-Soft, Bowel Sounds Present, Non Tender, Non Distended, No Hepatomegaly, No Splenomegaly, No Palpable Masses, No Rebound, No Rigidity, No Guarding Musculoskeletal-Full Range of Motion Bilaterally, No CVAT Extremities-No Cyanosis, No Clubbing, No Edema Nuero-Cranial Nerves II-XII grossly intact, Motor WNL, DTRs WNL, Strength WNL, Non Focal Psych-Normal Mood (1) Hypertension Hypertension type: unspecified Qualified Code(s): I10 - Essential (primary) hypertension
[2019-10-23] MEDS ORDERED: NITROGLYCERIN SL 0.4 MG/TAB TAB SL PRN (09:32)
[2019-10-23] MEDS ORDERED: TOBRAMYCIN/DEXAMETHASONE OPH SUSP 2.5 ML BTL OPB PRN (09:32)
[2019-10-23] MEDS ORDERED: DIMETHICONE TOP PRN (09:32)
[2019-10-23] MEDS ORDERED: HYDROCORTISONE 1% CRM 30 GM TUBE EXT PRN (09:32)
[2019-10-23] MEDS ORDERED: ZINC OXIDE TOP PRN (09:32)
[2019-10-23] MEDS ORDERED: ACETAMINOPHEN 325 MG TAB PO PRN (09:32)
[2019-10-23] MEDS: ISOSORBIDE MONO EXTENDED REL 30 MG TABCR PO SCH (09:59)
--- NOTE | 2019-10-23 13:10 | Electrocardiogram Report ---
Test Reason : Blood Pressure : / mmHG Vent. Rate : 075 BPM Atrial Rate : 075 BPM P-R Int : 214 ms QRS Dur : 102 ms QT Int : 400 ms P-R-T Axes : 078 057 068 degrees QTc Int : 446 ms Sinus rhythm with 1st degree A-V block Possible Left atrial enlargement Incomplete right bundle branch block Nonspecific ST and T wave abnormality Abnormal ECG When compared with ECG of 27-SEP-2019 22:55, No significant change was found Confirmed by Lam Garcia ([id number]) on 10/23/2019 1:09:48 PM Referred By: Confirmed By:Lam Garcia
[2019-10-23] MEDS ORDERED: HEPARIN SODIUM/DEXTROSE 25,000 UNITS/500 ML BAG IV SCH (14:15)
--- NOTE | 2019-10-23 14:25 | Cardiology Consultation ---
Date of Consultation October 23, 2019 Assessment & Plan (1) Angina pectoris: Patient this morning developed substernal chest pressure and heaviness after moderate level exertion per patient. Symptoms resolved after 3 sublingual nitroglycerin. Troponins are minimally elevated. Patient carries a history of recent non-ST segment elevation myocardial infarction with normal to hyperdynamic LV function. No obvious inciting cause. Findings discussed in detail with the patient and as per prior admission she declines any further invasive testing and wishes conservative medical care Plan: Increase metoprolol succinate to 25 mg p.o. daily with an additional 12.5 mg to be given now. Nitrates added to regimen with isosorbide mononitrate 30 mg daily we will continue all other antihypertensives as well as statin with atorvastatin 40 mg/day. May consider adding clopidogrel to her regimen however historically patient has had difficulties with anemia on chronic iron supplementation We will follow in hospital. Nocturnal oximetry ordered (2) NSTEMI (non-ST elevated myocardial infarction): 1 month post with prior history of normal coronary arteriography 12 years ago. (3) S/P AVR: Normal device function by echocardiogram 1 month ago (4) Hypertension: Blood pressures appear mildly elevated will likely allow the addition of nitrates and increased Toprol to regimen. If blood pressure decreases may need to reduce lisinopril dosing (5) CKD (chronic kidney disease), stage III: History of Present Illness Reason for Consultation: Angina pectoris Requesting Physician: Dr Uriostegui Attending Physician: Jann Torres DO History of Present Illness Patient is a an 84-year-old female whose underlying cardiac issues include 1. 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 Angiographically normal coronary arteries 2007 3. Hypertension with chronic CKD stage III 4. Hyperlipidemia 5. Polymyalgia rheumatica with chronic anemia 6. Hospitalization 09/22/2019 with angina pectoris, congestive heart failure, troponin elevation consistent with non-ST segment elevation myocardial infarction with preserved LV function Patient presents now noting having done well since recent admission to the a.m. of presentation. Patient was up in room at personal care facility and performed usual ADLs and then while sitting on the edge of the bed noted "her heart felt funny" symptoms progressed to mild chest pressure and patient summoned paramedics. Symptoms resolved on ER presentation after 3 sublingual nitroglycerin. She currently is comfortable without complaint. Noted no sense of tachypalpitations diaphoresis or shortness of breath. No fevers chills or unexplained infections. Allergies Allergy/AdvReac Type Severity Reaction Status Date / Time allopurinol Allergy Unknown [place] Verified 10/23/19 07:54 [facility] Cephalosporins Allergy Unknown ON Verified 10/23/19 07:54 [facility] gramicidin D [From Neocidin] Allergy Unknown Unknown Verified 10/23/19 07:54 neomycin [From Neocidin] Allergy Unknown Unknown Verified 10/23/19 07:54 polymyxin B [From Neocidin] Allergy Unknown Unknown Verified 10/23/19 07:54 Home Medications Home Medications Medication Instructions Recorded Confirmed Type aspirin [Aspirin Low Dose] 81 mg PO DAILY 06/11/18 10/23/19 History cholecalciferol (vitamin D3) 1,000 unit PO DAILY 06/11/18 10/23/19 History docusate sodium 100 mg PO BID 06/11/18 10/23/19 History furosemide 20 mg PO DAILYBB 06/11/18 10/23/19 History metoprolol succinate 12.5 mg PO DAILY 06/11/18 10/23/19 History acetaminophen [Acetaminophen Extra 500 mg PO Q4 PRN MDD 3 GRAMS/24 07/29/18 10/23/19 History Strength] HOURS amoxicillin 2,000 mg PO DAILY PRN 07/29/18 10/23/19 History ferrous sulfate 325 mg PO BID 07/29/18 10/23/19 History Antacid-Simethicone 10 - 20 ml PO QID PRN 09/27/19 10/23/19 History Rosemarie Protect 1 applic TOPICAL DAILY PRN 09/27/19 10/23/19 History Mucinex DM 1 tab PO Q12H PRN 09/27/19 10/23/19 History fexofenadine 180 mg PO DAILY 09/27/19 10/23/19 History hydrocortisone 1 applic TOPICAL DIRECTED PRN 09/27/19 10/23/19 History omeprazole 20 mg PO DAILY 09/27/19 10/23/19 History oxybutynin chloride 5 mg PO DAILY 09/27/19 10/23/19 History sennosides 8.6 mg PO DAILY PRN 09/27/19 10/23/19 History tobramycin-dexamethasone [TobraDex] 1 drp OPB QID PRN 09/27/19 10/23/19 History atorvastatin 40 mg PO DAILY #30 tab 10/01/19 10/23/19 Rx lisinopril 10 mg PO DAILY #30 tab 10/01/19 10/23/19 Rx nitroglycerin [Nitrostat] 0.4 mg SUBLINGUAL UD PRN #25 tab 10/01/19 10/23/19 Rx Patient History Medical History Aortic valve stenosis Cervical cancer 1997--sx Chronic diastolic heart failure Chronic kidney disease, stage 3 (moderate) Diverticular disease Dyslipidemia Gout Gout History of colon polyps History of esophageal dilatation History of falling Hypertension NSTEMI (non-ST elevated myocardial infarction) 09/2019 Osteoarthritis Polymyalgia rheumatica Schatzki's ring Status post closed fracture of right femur Surgical History H/O aortic valve replacement 09/2007 @ [facility] [place] H/O cataract extraction H/O total hysterectomy History of breast biopsy History of cardiac cath 08/20/2007 History of cholecystectomy History of colonoscopy History of esophagogastroduodenoscopy (EGD) History of vein stripping x2 Family History Mother Rectal cancer Social History Preferred Language: German Communication Ability: Effective Optical Effects Layout Person Required: No Beliefs That Will Affect Care: None Current Living Situation: Personal Care Facility Current Living Situation Comment: [facility] current occupational status: retired Other Information That Helps Us Care for You: No Feels Safe at Home: Yes Safety Concerns: Feels Safe At This Time Smoking Status: Former smoker Do You Dip or Chew Tobacco: No ; Second Hand Exposure: No ; Tobacco Cessation Education Requested by Patient: No Hx Alcohol Use: No Hx Substance Use: No Review of Systems Review of Systems: All systems reviewed & are unremarkable except as noted in HPI & below Physical Exam Constitutional: WD/WN, vitals as above Eyes: PERRL, conjunctivae normal, anicteric sclerae ENMT: external ear and nose normal, oropharynx normal Neck: trachea midline, no thyromegaly Respiratory: normal respiratory effort, lungs clear to auscultation Auscultation: + crackles Cardiovascular: Rate/Rhythm: regular rate and regular rhythm Heart Sounds: normal S1, normal S2 and + murmur (Grade 2/6 systolic, no diastolic); no gallop Palpation: normal PMI Vessels: normal carotid upstroke and radial pulses present; no JVD and no carotid bruit Extremities: + edema (1+ with support stockings in place) Gastrointestinal (Abdomen): normal bowel sounds, soft, nontender, no hepatosplenomegaly Musculoskeletal: no cyanosis or clubbing, extremities motor strength 5/5 Skin: no rashes, warm and dry Neurologic: PERRL, EOMI, accommodation nl, no face palsy, no dysarthria Motor/Sensory: + tremor Psychiatric: A+Ox3, euthymic affect Results & Data ([facility]) Vital Signs (Past 12 Hours) Vital Signs Temp Pulse Resp BP BP Pulse Ox 10/23/19 11:48 36.4 C L 66 H 122/70 95 10/23/19 09:30 36.2 C L 20 119/74 94 10/23/19 09:00 63 15 150/73 H 92 10/23/19 08:30 58 L 16 168/77 H 94 10/23/19 08:00 61 18 149/70 H 92 10/23/19 07:31 71 16 157/83 H 93 10/23/19 07:30 36.7 C 81 22 172/82 H 92 Laboratory Results Laboratory Results - last 24 hr 10/23/19 10/23/19 10/23/19 06:59 06:59 06:59 WBC 6.02 RBC 3.61 L Hgb 11.4 L Hct 34.1 L MCV 94.5 MCH 31.6 MCHC 33.4 RDW Std Deviation 46.8 H RDW Coeff of Jimmie 13.5 Plt Count 217 MPV 9.6 Immature Gran % (Auto) 0.2 Neut % (Auto) 61.5 Lymph % (Auto) 21.4 [place] % (Auto) 7.1 Eos % (Auto) 9.3 Baso % (Auto) 0.5 Immature Gran # (Auto) 0.01 Neut # (Auto) 3.70 Lymph # (Auto) 1.29 [place] # (Auto) 0.43 Eos # (Auto) 0.56 H Baso # (Auto) 0.03 PT 10.8 INR 1.0 APTT 26.5 PTT Ratio 0.9 Sodium 134 L Potassium 3.7 Chloride 103 Carbon Dioxide 23 Anion Gap 7.0 BUN 15 Creatinine 0.99 Est Cr Clr Drug Dosing 42.3 Est GFR ( Amer) 61.1 Est GFR (Non-Af Amer) 52.7 BUN/Creatinine Ratio 15.2 Glucose 110 H Calcium 9.7 Total Bilirubin 1.2 H AST 22 ALT 22 Alkaline Phosphatase 82 Total Creatine Kinase 77 Troponin I 0.032 Total Protein 7.8 Albumin 4.0 Globulin 3.8 Albumin/Globulin Ratio 1.1 Lipase 122 10/23/19 12:50 WBC RBC Hgb Hct MCV MCH MCHC RDW Std Deviation RDW Coeff of Jimmie Plt Count MPV Immature Gran % (Auto) Neut % (Auto) Lymph % (Auto) [place] % (Auto) Eos % (Auto) Baso % (Auto) Immature Gran # (Auto) Neut # (Auto) Lymph # (Auto) [place] # (Auto) Eos # (Auto) Baso # (Auto) PT INR APTT PTT Ratio Sodium Potassium Chloride Carbon Dioxide Anion Gap BUN Creatinine Est Cr Clr Drug Dosing Est GFR ( Amer) Est GFR (Non-Af Amer) BUN/Creatinine Ratio Glucose Calcium Total Bilirubin AST ALT Alkaline Phosphatase Total Creatine Kinase Troponin I 0.454 H* Total Protein Albumin Globulin Albumin/Globulin Ratio Lipase ECG Additional Comments: EKG 10/23/2019 sinus rhythm with 1st degree A-V block Possible Left atrial enlargement Incomplete right bundle branch block Nonspecific ST and T wave abnormality Abnormal ECG When compared with ECG of 27-SEP-2019 22:55, No significant change was found Confirmed by Lam Garcia ([id number]) on 10/23/2019 1:09:48 PM (1) Hypertension Hypertension type: unspecified Qualified Code(s): I10 - Essential (primary) hypertension
[2019-10-23] MEDS ORDERED: HEPARIN IV BOLUS 5,000 UNITS in SYRINGE 0 ML IV ONE (14:45)
[2019-10-23] MEDS ORDERED: METOPROLOL SUCC 50MG EXT REL TAB PO ONE (15:08)
[2019-10-23] MEDS: FERROUS SULFATE 325 MG TAB PO SCH (17:49)
[2019-10-23] MEDS: DOCUSATE SODIUM 100 MG CAP PO SCH (20:48)
[2019-10-23] MEDS ORDERED: HEPARIN SOD 5,000 UNIT/0.5 ML VIAL SQ SCH (21:00)
[2019-10-23 23:09] LABS: Partial Thromboplastin Ratio 2.5
[2019-10-23 23:12] LABS: Partial Thromboplastin Time 70.9 Seconds (21.0-31.0)
[2019-10-24 00:58] LABS: Hematocrit (blood only) 27.6 % (37-47); Hemoglobin 9.2 g/dL (12.0-16.0); Mean Corpuscular Hemoglobin 31.5 pg (25-34); Mean Corpuscular Hgb Conc 33.3 g/dL (32-36); Mean Corpuscular Volume 94.5 fL (80-100); Mean Platelet Volume 9.1 fL (7.4-10.4); Platelet Count 186 K/uL (130-400); RDW Coefficient of Variation 13.5 % (11.5-14.5); RDW Standard Deviation 46.7 fL (36.4-46.3); Red Blood Count 2.92 M/uL (4.2-5.4); White Blood Count 5.89 K/uL (4.8-10.8)
[2019-10-24 01:15] LABS: BUN Creatinine Ratio 17.3 (10-20); Calcium 8.8 mg/dl (8.5-10.1); Creatinine Clr Calc Pharmacy 46.5 ml/min; Est GFR (African American) 68.5; Est GFR (Non-African American) 59.1; Potassium 3.9 mmol/L (3.5-5.1)
[2019-10-24 06:10] LABS: Partial Thromboplastin Ratio 4.6
[2019-10-24 06:30] LABS: Partial Thromboplastin Time 129.4 Seconds (21.0-31.0)
[2019-10-24] MEDS: FUROSEMIDE 20 MG TAB PO SCH (06:34)
--- NOTE | 2019-10-24 07:23 | Hospitalist Progress Note ---
Date of Service October 24, 2019 Assessment & Plan (1) Angina pectoris: Pt is 84 y/o F with PMH recent NSTEMI in 09/2019, HTN, h/o AVR bioprosthetic valve in 2007, chronic diastolic CHF, CKD III, chronic anemia presented to ER with complaint of chest pain today with mild SOB. Relieved with 3 sprays nitro. Patient with history of hospitalization at [facility] 09/28/2019-10/01/2019 for NSTEMI, CHF exacerbation, acute respiratory failure. During that admission initial troponin 0 0.16 trended up to 3.5. Echo with EF > 70%, no wall motion abnormality. Patient declined cardiac catheterization. Treated medically In ER afebrile, P: 81, R: 22 down to 16, BP: 172/82 down to 157/83, 93% on RA. Initial troponin: 0.03. EKG sinus rhythm, 1st degree AV block, ST depression anterior lead. Prior EKG from 09/27/[address] depression lateral leads Angina. ACS Ruled in, Maximize medical therapy for now, possible cath, will d/w Cards and Patient, Last admit had pulm edema so may have triple vessel or LM disease, patient may be amenable to LHC, but clearly would not want CABG Medications adjusted Hb dropped 2 g so will hold IV Heparin for now, serial H&Hs (2) Hypertension: -Continue lisinopril (3) Chronic diastolic heart failure: Appears euvolemic -Continue lasix (4) S/P AVR: Bioprosthetic valve in 2007 (5) CKD (chronic kidney disease), stage III: Cr: 0.9. At baseline -Avoid nephrotoxic agents when possible DVT Prophylaxis DNR/DNI as per discussion with pt Follows with Dr Gayle at [facility] for routine care ROS-No Headache, No Visual Changes, No Nausea, No Vomiting, No Fever, No Chills, No Neck Pain or Stiffness, No Chest Pain, No Palpitations, No SOB, No MORGAN, No Cough, No Sputum, No Wheezing, No Abdominal Pain, No Diarrhea, No Hematemesis, No Hemoptysis, No Unexpected Weight Loss, No Flank pain, No Melena, No Hematochezia, No Frequency, No Urgency, No Burning, No Hematuria, No Rashes, No Diaphoresis. Appetite is Normal Physical Exam Gen-AAO x 3, NAD, Afebrile Head-NCAT, EOMI, PERRLA, Anicteric Sclera, No Posterior Pharyngeal Erythema Neck-Supple, No JVD, No Thyromegaly, No Masses, No LAD, No Bruits Lungs-Clear to Auscultation Bilaterally, No Rales, No Rhonchi, No Wheezing, No Crepitus Chest-No S4, +S1, +S2, No S3, No Murmurs, No Rubs, No Gallops, No Ectopy Abdomen-Soft, Bowel Sounds Present, Non Tender, Non Distended, No Hepatomegaly, No Splenomegaly, No Palpable Masses, No Rebound, No Rigidity, No Guarding Musculoskeletal-Full Range of Motion Bilaterally, No CVAT Extremities-No Cyanosis, No Clubbing, No Edema Nuero-Cranial Nerves II-XII grossly intact, Motor WNL, DTRs WNL, Strength WNL, Non Focal Psych-Normal Mood Admission and Anticipated Discharge Date Admission Date: October 23, 2019 Results & Data Results & Data ([facility]) Vital Signs (Past 12 Hours) Vital Signs Temp Pulse Pulse Pulse Resp BP Pulse Ox 10/24/19 04:45 36.6 C 70 20 133/52 L 98 10/24/19 00:00 62 10/23/19 23:28 36.7 C 58 L 18 115/51 L 96 10/23/19 21:24 63 10/23/19 20:07 36.8 C 60 18 109/60 96 Pulse Ox 10/24/19 04:45 10/24/19 00:00 10/23/19 23:28 10/23/19 21:24 96 10/23/19 20:07 (1) Hypertension Hypertension type: unspecified Qualified Code(s): I10 - Essential (primary) hypertension
[2019-10-24 08:59] LABS: Hematocrit (blood only) 30.4 % (37-47); Hemoglobin 10.3 g/dL (12.0-16.0)
[2019-10-24] MEDS: FERROUS SULFATE 325 MG TAB PO SCH ×2 (08:59→16:25)
[2019-10-24] MEDS: DOCUSATE SODIUM 100 MG CAP PO SCH ×2 (09:00→20:12)
[2019-10-24] MEDS ORDERED: METOPROLOL SUCC 25MG EXT REL TAB PO SCH (09:00)
[2019-10-24] MEDS: FEXOFENADINE HCL 180 MG TAB PO SCH (09:00)
[2019-10-24] MEDS: ASPIRIN 81 MG ECTAB PO SCH (09:01)
[2019-10-24] MEDS: ISOSORBIDE MONO EXTENDED REL 30 MG TABCR PO SCH (09:01)
[2019-10-24] MEDS: OXYBUTYNIN CHLORIDE 5 MG TAB PO SCH (09:01)
[2019-10-24] MEDS: ATORVASTATIN 40 MG TAB PO SCH (09:02)
[2019-10-24] MEDS: PANTOprazole 40 MG TAB PO SCH (09:02)
[2019-10-24] MEDS: CHOLECALCIFEROL 1,000 UNITS 25 MCG TAB PO SCH (09:03)
[2019-10-24] MEDS: lisinopriL 10 MG TAB PO SCH (09:03)
[2019-10-24] MEDS: METOPROLOL SUCC 25MG EXT REL TAB PO SCH (09:03)
[2019-10-24 09:20] LABS: Albumin Level 3.2 gm/dl (3.4-5.0); Bilirubin Direct 0.2 mg/dl (0-0.2); Bilirubin,Total 1.2 mg/dl (0.2-1); Total Protein 6.6 gm/dl (6.4-8.2)
[2019-10-24] MEDS ORDERED: SODIUM CHLORIDE 0.9% 1000ML 1,000 ML IV SCH (10:15)
--- NOTE | 2019-10-24 10:28 | Cardiology Progress Note ---
Date of Service October 24, 2019 Assessment & Plan (1) NSTEMI (non-ST elevated myocardial infarction): Patient with recurrent chest pain after attempts to manage with medical therapy following non-ST segment elevation myocardial infarction 1 month ago. Patient re-presents with symptoms of angina elevated troponin and EKG abnormalities. In the past patient has not wished aggressive intervention but has reconsidered diagnostic cardiac catheterization and possible coronary intervention as a t reatment. Once again states would not consider open heart surgery either based on coronary anatomy or as a complication of procedures. We will plan on proceeding with diagnostic cardiac catheterization today with procedure and risks explained in detail with additional risks of coronary intervention as indicated as well as plans for medical management of multivessel disease or procedural need for further interventions. Heparin has been discontinued this morning due to drop in hemoglobin. Will load with clopidogrel (2) S/P AVR: (3) Acute electrocardiogram changes: Subjective Patient seen and examined, chart, medications, telemetry reviewed. No chest pain or discomfort overnight no arrhythmias. EKGs do demonstrate anterior ST segment abnormalities V1 V2 consistent with ischemia with associated elevated troponins. Physical Exam Constitutional: WD/WN, vitals as above Eyes: PERRL, conjunctivae normal, anicteric sclerae ENMT: external ear and nose normal, oropharynx normal Neck: trachea midline, no thyromegaly Respiratory: Fine crackles bibasilar unchanged Cardiovascular: Rate/Rhythm: regular rate and regular rhythm Heart Sounds: + murmur (Grade 2/6 systolic); no gallop Palpation: no heave Vessels: no JVD and no carotid bruit Extremities: no edema Gastrointestinal (Abdomen): normal bowel sounds, soft, nontender, no hepatosplenomegaly Neurologic: PERRL, EOMI, accommodation nl, no face palsy, no dysarthria Psychiatric: A+Ox3, euthymic affect Results & Data Vital Signs (Past 12 Hours) Vital Signs Temp Pulse Pulse Resp BP Pulse Ox 10/24/19 08:00 36.4 C L 67 22 179/81 H 96 10/24/19 04:45 36.6 C 70 20 133/52 L 98 10/24/19 00:00 62 10/23/19 23:28 36.7 C 58 L 18 115/51 L 96 Laboratory Results Laboratory Results - last 24 hr 10/23/19 10/23/19 10/23/19 12:50 19:11 22:37 WBC RBC Hgb Hct MCV MCH MCHC RDW Std Deviation RDW Coeff of Jimmie Plt Count MPV APTT 70.9 H* PTT Ratio 2.5 Sodium Potassium Chloride Carbon Dioxide Anion Gap BUN Creatinine Est Cr Clr Drug Dosing Est GFR ( Amer) Est GFR (Non-Af Amer) BUN/Creatinine Ratio Glucose Calcium Total Bilirubin Direct Bilirubin AST ALT Alkaline Phosphatase Troponin I 0.454 H* 0.483 H* Total Protein Albumin 10/24/19 10/24/19 10/24/19 00:45 00:45 00:45 WBC 5.89 RBC 2.92 L Hgb 9.2 L Hct 27.6 L MCV 94.5 MCH 31.5 MCHC 33.3 RDW Std Deviation 46.7 H RDW Coeff of Jimmie 13.5 Plt Count 186 MPV 9.1 APTT PTT Ratio Sodium 135 L Potassium 3.9 Chloride 106 Carbon Dioxide 25 Anion Gap 4.0 BUN 16 Creatinine 0.90 Est Cr Clr Drug Dosing 46.5 Est GFR ( Amer) 68.5 Est GFR (Non-Af Amer) 59.1 BUN/Creatinine Ratio 17.3 Glucose 92 Calcium 8.8 Total Bilirubin Direct Bilirubin AST ALT Alkaline Phosphatase Troponin I 0.306 H* Total Protein Albumin 10/24/19 10/24/19 10/24/19 05:35 05:39 05:39 WBC RBC Hgb 10.3 L Hct 30.4 L MCV MCH MCHC RDW Std Deviation RDW Coeff of Jimmie Plt Count MPV APTT 129.4 H* PTT Ratio 4.6 Sodium Potassium Chloride Carbon Dioxide Anion Gap BUN Creatinine Est Cr Clr Drug Dosing Est GFR ( Amer) Est GFR (Non-Af Amer) BUN/Creatinine Ratio Glucose Calcium Total Bilirubin 1.2 H Direct Bilirubin 0.2 AST 21 ALT 20 Alkaline Phosphatase 69 Troponin I Total Protein 6.6 Albumin 3.2 L
[2019-10-24] MEDS ORDERED: CLOPIDOGREL BISULFATE 300 MG TAB PO ONE (10:30)
[2019-10-24] MEDS ORDERED: fentaNYL citrate 100 MCG/2 ML VIAL ONE (12:55)
[2019-10-24] MEDS ORDERED: NiCARDipine HCL INJ 2.5 MG/ML 10 ML AMP ONE (12:55)
[2019-10-24] MEDS ORDERED: MIDAZOLAM HCL 1 MG/ML 2ML VIAL ONE ×2 (12:55→14:48)
[2019-10-24] MEDS ORDERED: HEPARIN (PORCINE) 1000 UNIT/ML 10 ML (CATH LAB USE ONLY) ONE (12:56)
--- NOTE | 2019-10-24 13:37 | Pre Anesthesia Assessment ---
Date of Service October 24, 2019 Pre Sedation Assessment Vital Signs Temp Pulse Pulse Pulse Resp BP Pulse Ox 10/24/19 11:39 36.8 C 65 16 144/64 H 96 10/24/19 08:00 36.4 C L 67 22 179/81 H 96 10/24/19 04:45 36.6 C 70 20 133/52 L 98 10/24/19 00:00 62 10/23/19 23:28 36.7 C 58 L 18 115/51 L 96 10/23/19 21:24 63 10/23/19 20:07 36.8 C 60 18 109/60 96 10/23/19 16:14 61 148/69 H 10/23/19 16:00 64 10/23/19 15:17 36.5 C 63 20 155/69 H 98 Pulse Ox 10/24/19 11:39 10/24/19 08:00 10/24/19 04:45 10/24/19 00:00 10/23/19 23:28 10/23/19 21:24 96 10/23/19 20:07 10/23/19 16:14 10/23/19 16:00 10/23/19 15:17 Cardiovascular + regular rate and + regular rhythm + murmur no JVD Respiratory + crackles Pre-Sedation Airway Assessment Smoking Status: Former smoker Mallampati Class: III ASA: ASA3 Procedure Planning Contraindications for Sedation: none Current Medications Reviewed: Yes Notes The planned sedation has been discussed with the patient. Informed Consent was obtained. I have identified the patient, determined the appropriateness of sedation and have assessed the patient immediately prior to the procedure. All medicine(s) and interventions are by my order.
--- NOTE | 2019-10-24 14:35 | Cardiac Catheterization ---
Cardiac Cath Procedure Brief Procedure Date October 24, 2019 Pre-Procedure Diagnosis Pre-Procedure Diagnosis: Non STEMI and Acute Coronary Syndrome AUC Score AUC Score: 9 Post-Procedure Diagnosis Post-Procedure Diagnosis: Severe CAD Procedure(s) Performed Procedure(s) Performed: Coronary Angiography Blockmason Matthew Figueroa MD Garment Form Assembler(s) Venkata Beasley Estimated Blood Loss Estimated Blood Loss: <15cc Medication(s) Medication(s): Fentanyl (12.5 mcg IV), Heparin (5000 units IV), Lidocaine 1% (Local infiltration access site), Nicardipine (250 mcg intra-arterial after arterial sheath insertion) and Versed (1 mg IV) Preliminary Findings Right dominant coronary anatomy with right coronary artery not directly engaged Two vessel coronary artery disease Severe left anterior descending stenosis 99% with left coronary anatomy filling right coronary artery retrograde with notable competitive flow Left main: Large caliber ostium and long vessel with 30 to 40% distal stenosis Left anterior descending: The vessel is type III in distribution it gives rise to a very large septal branch early in its proximal portion followed by a moderate-sized diagonal branch at the end of its proximal third. It gives rise to a very small second diagonal branch in its midportion and courses to terminate well beyond the apex. Within the left anterior descending there is a hazy high-grade thrombotic lesion just proximal to the origin of the first diagonal branch narrowing the vessel by 99%. The origin of the diagonal is narrowed as well by 70%. Ramus intermedius: Moderately large caliber vessel with luminal irregularities but no obstruction Left circumflex: Large in caliber and distribution gives rise to a small first marginal branch and a large bifurcating second marginal branch before giving rise to a small posterior lateral branch. There are moderate diffuse luminal irregularities in the vessel with a 40% narrowing of the AV groove portion. Right coronary artery: Not directly engaged. The distal vessel may be seen filling retrograde via [id number]-[id number] collateral flow from the circumflex septal branch and left anterior descending. Competitive flow is noted in its proximal to midportion LV angiography: Not performed prosthetic aortic valve not crossed Plan: Referral for coronary invention culprit lesion left anterior descending Recommendations Recommendations: PCI without planned CABG Specimens Specimens: None Fluids (cc crystalloids) Fluids (cc crystalloids): 50 Anesthesia Start: 1342, End 1419 Procedural Complication(s) None Disposition PCU
--- NOTE | 2019-10-24 14:49 | Electrocardiogram Report ---
Test Reason : Blood Pressure : / mmHG Vent. Rate : 062 BPM Atrial Rate : 062 BPM P-R Int : 240 ms QRS Dur : 090 ms QT Int : 470 ms P-R-T Axes : 084 059 085 degrees QTc Int : 477 ms Sinus rhythm with 1st degree A-V block Prolonged QT Abnormal ECG When compared with ECG of 23-OCT-2019 07:30, Inverted T waves have replaced nonspecific T wave abnormality in Anterior leads Confirmed by Lam Garcia ([id number]) on 10/24/2019 2:49:06 PM Referred By: REFERRED SELF Confirmed By:Lam Garcia
--- NOTE | 2019-10-24 14:59 | Cardiac Catheterization ---
Cardiac Cath Procedure Full Procedure Date October 24, 2019 Pre-Procedure Diagnosis Pre-Procedure Diagnosis: Non STEMI and Acute Coronary Syndrome AUC Score AUC Score: 9 Post-Procedure Diagnosis Post-Procedure Diagnosis: Severe CAD Procedure(s) Performed Procedure(s) Performed: Coronary Angiography Animal Groomer Matthew Figueroa MD Siphoner(s) Venkata Beasley Estimated Blood Loss Estimated Blood Loss: <15cc Medication(s) Medication(s): Fentanyl (12.5 mcg IV), Heparin (5000 units IV), Lidocaine 1% (Local infiltration access site), Nicardipine (250 mcg intra-arterial after arterial sheath insertion) and Versed (1 mg IV) Summary of Findings Right dominant coronary anatomy with right coronary artery not directly engaged Severe left anterior descending stenosis 99% with left coronary anatomy filling right coronary artery retrograde with notable competitive flow Left main: Large caliber ostium and long vessel with 30% distal stenosis Left anterior descending: The vessel is type III in distribution it gives rise to a very large septal branch early in its proximal portion followed by a moderate-sized diagonal branch at the end of its proximal third. It gives rise to a very small second diagonal branch in its midportion and courses to terminate well beyond the apex. Within the left anterior descending there is a hazy high-grade thrombotic lesion just proximal to the origin of the first diagonal branch narrowing the vessel by 99%. The origin of the diagonal is narrowed as well by 70%. Ramus intermedius: Moderately large caliber vessel with luminal irregularities but no obstruction Left circumflex: Large in caliber and distribution gives rise to a small first marginal branch and a large bifurcating second marginal branch before giving rise to a large posterior lateral branch. There are moderate diffuse luminal irregularities in the vessel with a 40% narrowing at the origin of the AV groove portion. Right coronary artery: Not directly engaged. The distal vessel may be seen filling retrograde via vadn-qb-fowha collateral flow from the circumflex septal branch and left anterior descending. Competitive flow is noted in its proximal to midportion LV angiography: Not performed prosthetic aortic valve not crossed Hemodynamics Rest Ao:: 162/73/105 Final Ao: 172/80/114 LV: N/A Recommendations Recommendations: PCI without planned CABG Specimens Specimens: None Radiation Exposure (mGy) 351 Contrast (mls) 110 Fluids (cc crystalloids) Fluids (cc crystalloids): 50 Anesthesia Start: 1342, End 1419 Procedural Complication(s) None Disposition PCU I attest to the content of the Intraoperative Record and any orders documented therein. Any exceptions are noted below. ACC Data: Hr Intern Cardiac Status 84-year-old female without prior coronary artery disease but prior hospitalization 1 month ago with acute coronary syndrome non-ST segment elevation myocardial infarction managed medically with recurrence of symptoms angina and non-ST segment elevation infarct by EKG and enzyme criteria. CAD Presenation: Non STEMI Anginal Classification: CCS IV Heart Failure: No Cardiogenic Shock within 24 Hours: No Cardiac Arrest within 24 Hours: No Imaging Studies Past 6 Months: Yes Stress Studies Past 6 Months: No Standard Exercise Test: No Stress Echocardiogram: No Stress Testing w/SPECT MPI: No Cardiac CTA: No STEMI OR Non-STEMI Symptom Onset Date: 10/23/19 Symptom Onset Time: 08:00 Thrombolytics: No Coronary Anatomy Dominant: Right Left Main (% Stenosis): Distal (30) LAD (% Stenosis): Proximal (99% hazy thrombotic lesion between first septal and first diagonal branch) D1 (% Stenosis): Ostial (70) D2 (% Stenosis): Normal Circumflex (% Stenosis): Distal (40) OM1 (% Stenosis): Normal OM2 (% Stenosis): Normal L PL1 (% Stenosis): Proximal RCA (% Stenosis): Ostial (Heavily calcified and not engaged. Distal right coronary fills retrograde to its midportion via [id number]-[id number] collateral) Ramus (% Stenosis): Mid (Mild luminal irregularities large vessel) Diagnostic Physicians Name: Matthew Figueroa MD Status: Urgent Closure Device Percutaneous Entry Location: Radial Recommendations: PCI without planned CABG
[2019-10-24] MEDS ORDERED: NITROGLYCERIN/D5W 100MCG/ML 20ML SYR ONE (15:15)
[2019-10-24] MEDS ORDERED: BACITRACIN INJ 50,000 UNIT VIAL ONE (15:17)
[2019-10-24] MEDS ORDERED: CLOPIDOGREL BISULFATE 300 MG TAB ONE (15:27)
--- NOTE | 2019-10-24 15:32 | Post Anesthesia Assessment ---
Date of Service October 24, 2019 Post Sedation Assessment Vital Signs Temp Pulse Pulse Pulse Resp BP Pulse Ox 10/24/19 11:39 98.2 F 65 16 144/64 H 96 10/24/19 08:00 97.5 F L 67 22 179/81 H 96 10/24/19 04:45 97.9 F 70 20 133/52 L 98 10/24/19 00:00 62 10/23/19 23:28 98.1 F 58 L 18 115/51 L 96 10/23/19 21:24 63 10/23/19 20:07 98.2 F 60 18 109/60 96 10/23/19 16:14 61 148/69 H 10/23/19 16:00 64 Pulse Ox 10/24/19 11:39 10/24/19 08:00 10/24/19 04:45 10/24/19 00:00 10/23/19 23:28 10/23/19 21:24 96 10/23/19 20:07 10/23/19 16:14 10/23/19 16:00 Recovery Score Activity: Moves 4 extremities Respiration: Deep Breath/Cough Circulation: +/-20% PreAnes Value Consciousness: Fully Awake Oxygen Saturation: O2 needed for >90% Discharge Sedation Level of Care: Fast Track Phase II Post Sedation Plan On clinical assessment, the patient appears to have tolerated the sedation without complications. Patient is recovering as anticipated. Patient will continue to be monitored by nursing and may be discharged when sedation discharge criteria are met per below protocol. Upon Completions of procedure up to 15 minutes continue every 5 minute vital signs and the P.A.R. score; then discharge to a Phase I or Fast Track to Phase II per the following guidelines: * Discharge Patient to appropriate Phase II area if PAR is 8 or greater or return to pre- procedure baseline. The post - procedure orders will be as directed. * If PAR score is less than 8 or not return to pre-procedure baseline then patient will follow Phase I monitoring till PAR is reached for Phase II. The Phase I may be done in procedure room or may call to secure a Phase I area. * If naloxone or flumazenil are used for reversal, hold in Phase I for continued monitoring from when last reversal dose was given for a minimum of 60 minutes or longer pending the nurse and/or physician discretion of patient condition before discharge to Phase II. Please call the Sedation Physician to re-evaluate and complete post-note for discharge to Phase II area. Do NOT discharge from procedure sedation or Phase 1 until post- sedation evaluation note is complete by procedure /sedation MD Sedation Discharge Instructions to be given to the patient at discharge to home.
--- NOTE | 2019-10-24 15:42 | Cardiac Catheterization ---
[facility] Data: Collection Systems Technician Cardiac Status Clinical evaluation leading to the procedure CAD Presenation: Non STEMI Anginal Classification: CCS IV Heart Failure: No Cardiogenic Shock within 24 Hours: No Cardiac Arrest within 24 Hours: No Imaging Studies Past 6 Months: Yes Stress Studies Past 6 Months: No Diagnostic Physicians Name: Oskar Peterson MD Status: Elective Closure Device Percutaneous Entry Location: Radial Closure Device: Radial Band Recommendations: PCI without planned CABG PCI Indication: PCI for high risk Non-CRISTAL Lesion Segment Name: mid LAD Culprit Artery: Yes Stenosis Prior to Rx (%): 95 Chronic Total Occlusion: No IVUS: No FFR: No Pre-Procedure ANGELINE Flow: 3 Previously Treated Lesion: No Lesion Complexity: High/C Lesion Length (mm): 18 Thrombus Present: Yes Bifurcation Lesion: Yes Guidewire Across Lesion: Stenosis Post-Procedure (%): 0 Post-Procedure ANGELINE Flow: 3 Devices(s) Deployed: Yes Yes Intraprocedure Events Significant Disection: No Perforation: No Cardiac Cath Procedure Full Procedure Date October 24, 2019 Pre-Procedure Diagnosis Pre-Procedure Diagnosis: Non STEMI and Acute Coronary Syndrome AUC Score AUC Score: 9 Post-Procedure Diagnosis Post-Procedure Diagnosis: Severe CAD Procedure(s) Performed Procedure(s) Performed: Drug Eluting Stent Filler Leaf Cutter Long Oskar Peterson MD Grain Grader(s) Venkata Beasley Estimated Blood Loss Estimated Blood Loss: <15cc Medication(s) Medication(s): Clopidogrel, Fentanyl (12.5 mcg IV), Heparin (5000 units IV), Nicardipine (250 mcg intra-arterial after arterial sheath insertion), Nitroglycerin and Versed (1 mg IV) Summary of Findings Indication: NSTEMI Access: 6 Fr right radial artery Catheters: EBU 4.0, telescope Findings: For full details of patient's coronary angiography please see cath report dictated by Dr. Figueroa. Briefly, patient found to have severe two-vessel disease including a 95+% mid LAD stenosis and subtotal occlusion of her RCA with jjwq-hz-sbsir collaterals. Decision to proceed with PCI of LAD. -- PCI -- Antithrombotic therapy: Heparin, clopidogrel Procedure: Left main cannulated with EBU 4.0 BMW wire passed across lesion into distal LAD It Solutions Architect 50 wire placed into second diagonal arising at area of stenosis Mid LAD heavily calcified with the aid of a telescope support catheter lesion eventually dilated with 2.0 and 2.5 compliant balloons. Dilated lesion stented with 3.5 x 22 mm Judah drug-eluting stent Stent post-dilated with 4.0 noncompliant balloon IC vasodilators administered for spasm Post procedure ANGELINE 3 flow, stent well expanded with minimal residual stenosis. ANGELINE-3 flow in second diagonal. No apparent cardiac complications. Arterial Closure: TR band Summary: 1. Successful PCI of proximal to mid LAD with single drug-eluting stent (3.5 x 22 mm Judah; postdilated with 4.0 NC). Recommendations: To PCU for continued monitoring Loaded with clopidogrel 600 mg Continue dual-antiplatelet therapy for at least 1 year Continue statin, and ASCVD risk factor modification Consult cardiac Rehab Hemodynamics Rest Ao:: 150/108/137 Final Ao: 134/54/82 LV: -- Recommendations Recommendations: PCI without planned CABG Specimens Specimens: None Radiation Exposure (mGy) 622 Contrast (mls) 80 Fluids (cc crystalloids) Fluids (cc crystalloids): 200 Drains Drains: None Anesthesia Moderate Procedural Complication(s) None Disposition PCU I attest to the content of the Intraoperative Record and any orders documented therein. Any exceptions are noted below. [facility] Card Cath Procedure Codes Moderate Sedation Procedure 1: Sedation/Anesthesia: 31244 Mod Sedation by the same physician;Init15 Min Child Age 5 & Up Procedure 2: Sedation/Anesthesia: 22657 Mod Sedation by the same physician; Ea [id number] Minutes Stenting Procedure 1: Cardiovascular Stent Procedures: 95638 Perc transcatheter placement of intracoronary stent(s), with ang PG Care Time/CCT Total # of Minutes Spent Total Time Spent with Patient: Total time spent is greater than 50% in coordination of care (as documented) at patient's floor/unit and/or counseling patient:
[2019-10-24] MEDS ORDERED: SODIUM CHLORIDE 0.9% 500 ML IV SCH (15:45)
--- NOTE | 2019-10-24 15:56 | Cardiology Progress Note ---
Date of Service October 24, 2019 Subjective Patient was referred and underwent diagnostic coronary angiography today demonstrating two-vessel coronary disease with subtotal right coronary stenosis with [id number]-rw-[id number] collateral fill and calcified thrombotic high-grade mid left anterior sending stenosis between first septal and diagonal branch. Lesion representing likely culprit to current complaints and patient was referred and underwent coronary intervention with successful stenting. Patient tolerated well Plan continue increased metoprolol succinate 25 mg/day, prior lisinopril and atorvastatin, isosorbide mononitrate 30 mg/day, aspirin 81 mg daily, clopidogrel 75 mg p.o. daily Results discussed with patient sister Results & Data Vital Signs (Past 12 Hours) Vital Signs Temp Pulse Resp BP Pulse Ox 10/24/19 11:39 36.8 C 65 16 144/64 H 96 10/24/19 08:00 36.4 C L 67 22 179/81 H 96 10/24/19 04:45 36.6 C 70 20 133/52 L 98
[2019-10-24 17:10] LABS: Hematocrit (blood only) 31.3 % (37-47); Hemoglobin 10.5 g/dL (12.0-16.0)
[2019-10-25 00:34] LABS: Hematocrit (blood only) 28.4 % (37-47); Hemoglobin 9.6 g/dL (12.0-16.0)
[2019-10-25] MEDS: FUROSEMIDE 20 MG TAB PO SCH (06:01)
[2019-10-25 07:17] LABS: Hematocrit (blood only) 27.7 % (37-47); Hemoglobin 9.1 g/dL (12.0-16.0); Mean Corpuscular Hemoglobin 31.2 pg (25-34); Mean Corpuscular Hgb Conc 32.9 g/dL (32-36); Mean Corpuscular Volume 94.9 fL (80-100); Mean Platelet Volume 9.7 fL (7.4-10.4); Platelet Count 181 K/uL (130-400); RDW Coefficient of Variation 13.6 % (11.5-14.5); RDW Standard Deviation 47.1 fL (36.4-46.3); Red Blood Count 2.92 M/uL (4.2-5.4); White Blood Count 5.57 K/uL (4.8-10.8)
[2019-10-25 07:42] LABS: Albumin Level 3.1 gm/dl (3.4-5.0); BUN Creatinine Ratio 17.5 (10-20); Calcium 8.5 mg/dl (8.5-10.1); Creatinine Clr Calc Pharmacy 45.7 ml/min; Est GFR (African American) 74.5; Est GFR (Non-African American) 64.3; Potassium 4.1 mmol/L (3.5-5.1)
[2019-10-25 07:45] LABS: Bilirubin,Total 1.4 mg/dl (0.2-1); Total Protein 6.1 gm/dl (6.4-8.2)
[2019-10-25] MEDS: FEXOFENADINE HCL 180 MG TAB PO SCH (08:04)
[2019-10-25] MEDS: FERROUS SULFATE 325 MG TAB PO SCH ×2 (08:04→17:17)
[2019-10-25] MEDS: DOCUSATE SODIUM 100 MG CAP PO SCH ×2 (08:05→19:59)
[2019-10-25] MEDS: OXYBUTYNIN CHLORIDE 5 MG TAB PO SCH (08:05)
[2019-10-25] MEDS: ISOSORBIDE MONO EXTENDED REL 30 MG TABCR PO SCH (08:05)
[2019-10-25] MEDS: ASPIRIN 81 MG ECTAB PO SCH (08:05)
[2019-10-25] MEDS: METOPROLOL SUCC 25MG EXT REL TAB PO SCH (08:06)
[2019-10-25] MEDS: PANTOprazole 40 MG TAB PO SCH (08:06)
[2019-10-25] MEDS: CLOPIDOGREL BISULFATE 75 MG TAB PO SCH (08:06)
[2019-10-25] MEDS: ATORVASTATIN 40 MG TAB PO SCH (08:06)
[2019-10-25] MEDS: lisinopriL 10 MG TAB PO SCH (08:07)
[2019-10-25] MEDS: CHOLECALCIFEROL 1,000 UNITS 25 MCG TAB PO SCH (08:07)
--- NOTE | 2019-10-25 09:22 | Hospitalist Progress Note ---
Date of Service October 25, 2019 Assessment & Plan (1) Angina pectoris: Pt is 84 y/o F with PMH recent NSTEMI in 09/2019, HTN, h/o AVR bioprosthetic valve in 2007, chronic diastolic CHF, CKD III, chronic anemia presented to ER with complaint of chest pain today with mild SOB. Relieved with 3 sprays nitro. Patient with history of hospitalization at [facility] 09/28/2019-10/01/2019 for NSTEMI, CHF exacerbation, acute respiratory failure. During that admission initial troponin 0 0.16 trended up to 3.5. Echo with EF > 70%, no wall motion abnormality. Patient declined cardiac catheterization. Treated medically In ER afebrile, P: 81, R: 22 down to 16, BP: 172/82 down to 157/83, 93% on RA. Initial troponin: 0.03. EKG sinus rhythm, 1st degree AV block, ST depression anterior lead. Prior EKG from 09/27/[address] depression lateral leads Angina. ACS Ruled in, s/p cath, LAD Stented, DC to [facility] Sunday at the latest (2) Hypertension: -Continue lisinopril (3) Chronic diastolic heart failure: Appears euvolemic -Continue lasix (4) S/P AVR: Bioprosthetic valve in 2007 (5) CKD (chronic kidney disease), stage III: Cr: 0.9. At baseline -Avoid nephrotoxic agents when possible DVT Prophylaxis DNR/DNI as per discussion with pt Follows with Dr Gayle at [facility] for routine care ROS-No Headache, No Visual Changes, No Nausea, No Vomiting, No Fever, No Chills, No Neck Pain or Stiffness, No Chest Pain, No Palpitations, No SOB, No MORGAN, No Cough, No Sputum, No Wheezing, No Abdominal Pain, No Diarrhea, No Hematemesis, No Hemoptysis, No Unexpected Weight Loss, No Flank pain, No Melena, No Hematochezia, No Frequency, No Urgency, No Burning, No Hematuria, No Rashes, No Diaphoresis. Appetite is Normal Physical Exam Gen-AAO x 3, NAD, Afebrile Head-NCAT, EOMI, PERRLA, Anicteric Sclera, No Posterior Pharyngeal Erythema Neck-Supple, No JVD, No Thyromegaly, No Masses, No LAD, No Bruits Lungs-Clear to Auscultation Bilaterally, No Rales, No Rhonchi, No Wheezing, No Crepitus Chest-No S4, +S1, +S2, No S3, No Murmurs, No Rubs, No Gallops, No Ectopy Abdomen-Soft, Bowel Sounds Present, Non Tender, Non Distended, No Hepatomegaly, No Splenomegaly, No Palpable Masses, No Rebound, No Rigidity, No Guarding Musculoskeletal-Full Range of Motion Bilaterally, No CVAT Extremities-No Cyanosis, No Clubbing, No Edema Nuero-Cranial Nerves II-XII grossly intact, Motor WNL, DTRs WNL, Strength WNL, Non Focal Psych-Normal Mood Admission and Anticipated Discharge Date Admission Date: October 23, 2019 Anticipated date of discharge: 10/27/19 Results & Data Results & Data ([facility]) Vital Signs (Past 12 Hours) Vital Signs Temp Pulse Resp BP Pulse Ox 10/25/19 08:00 36.8 C 86 18 154/67 H 95 10/25/19 04:32 36.9 C 83 18 118/64 95 10/25/19 00:37 36.6 C 58 L 18 147/72 H 97 (1) Hypertension Hypertension type: unspecified Qualified Code(s): I10 - Essential (primary) hypertension
--- NOTE | 2019-10-25 11:50 | Cardiology Progress Note ---
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 Patient states that she feels well with no recurrent chest discomfort. Has already been started on aspirin, Plavix, metoprolol, atorvastatin and Imdur. Will continue. Okay to DC to [facility] when able to. Okay to DC telemetry from a cardiac standpoint. (2) S/P AVR: Normal device function by echocardiogram 1 month ago (3) Acute electrocardiogram changes: (4) Anemia: Will need to be followed closely given the need for dual antiplatelet therapy. Recommend follow-up with PCP as an outpatient. (5) Hypertension: Improving. Continue lisinopril, may up titrate as necessary for further control Subjective Patient seen and examined, resting comfortably in bed. States that she feels well. Has not had any chest discomfort since undergoing cardiac catheterization and denies any shortness of breath, palpitations, lightheadedness, dizziness or syncope. She has not had any bleeding at the cath site either. Telemetry reviewed: Normal sinus rhythm without arrhythmia or significant ectopy. Review of Systems Review of Systems: All systems reviewed & are unremarkable except as noted in HPI & below Physical Exam Physical Exam: General: Awake, alert and oriented x 3. No acute distress. HEENT: Normocephalic, atraumatic. Pupils equal, round and reactive to light and accommodation. Extraocular muscles are intact. Anicteric sclera. Moist mucous membranes. Neck: No JVD. No bruit. Cardiovascular: Regular. Positive S-4. Normal S-1 and S-2. No S-3. 3/6 mid to late systolic ejection murmur, greatest at the right sternal border, second intercostal space with radiation to the bilateral carotids. No rubs. Pulmonary: Clear to auscultation bilaterally. No rales, rhonchi, or wheezing. Abdomen: Bowel sounds x 4, soft. No rebound, guarding or tenderness. No organomegaly. Extremities: No clubbing, cyanosis or edema. +2 pedal pulses bilaterally. Skin: Warm and dry. Results & Data Vital Signs (Past 12 Hours) Vital Signs Temp Pulse Resp BP Pulse Ox 10/25/19 10:52 36.6 C 68 18 124/57 L 97 04/04/20 08:00 36.8 C 86 18 154/67 H 95 10/25/19 04:32 36.9 C 83 18 118/64 95 10/25/19 00:37 36.6 C 58 L 18 147/72 H 97 (1) Hypertension Hypertension type: unspecified Qualified Code(s): I10 - Essential (primary) hypertension
[2019-10-26 06:13] LABS: Mean Corpuscular Hemoglobin 31.4 pg (25-34); Mean Corpuscular Hgb Conc 33.3 g/dL (32-36); Mean Corpuscular Volume 94.1 fL (80-100); Mean Platelet Volume 9.7 fL (7.4-10.4); Platelet Count 185 K/uL (130-400); RDW Coefficient of Variation 13.7 % (11.5-14.5); RDW Standard Deviation 47.5 fL (36.4-46.3); Red Blood Count 2.87 M/uL (4.2-5.4); White Blood Count 5.19 K/uL (4.8-10.8)
[2019-10-26] MEDS: FUROSEMIDE 20 MG TAB PO SCH (06:46)
[2019-10-26 06:53] LABS: BUN Creatinine Ratio 16.5 (10-20); Calcium 8.6 mg/dl (8.5-10.1); Creatinine Clr Calc Pharmacy 42.6 ml/min; Est GFR (African American) 68.5; Est GFR (Non-African American) 59.1; Potassium 3.8 mmol/L (3.5-5.1)
--- NOTE | 2019-10-26 07:34 | Hospitalist Progress Note ---
Date of Service October 26, 2019 Assessment & Plan (1) Angina pectoris: Pt is 84 y/o F with PMH recent NSTEMI in 09/2019, HTN, h/o AVR bioprosthetic valve in 2007, chronic diastolic CHF, CKD III, chronic anemia presented to ER with complaint of chest pain today with mild SOB. Relieved with 3 sprays nitro. Patient with history of hospitalization at [facility] 09/28/2019-10/01/2019 for NSTEMI, CHF exacerbation, acute respiratory failure. During that admission initial troponin 0 0.16 trended up to 3.5. Echo with EF > 70%, no wall motion abnormality. Patient declined cardiac catheterization. Treated medically In ER afebrile, P: 81, R: 22 down to 16, BP: 172/82 down to 157/83, 93% on RA. Initial troponin: 0.03. EKG sinus rhythm, 1st degree AV block, ST depression anterior lead. Prior EKG from 09/27/[address] depression lateral leads Angina. ACS Ruled in, s/p cath, LAD Stented, DC to [place] Sunday (2) Hypertension: -Continue lisinopril (3) Chronic diastolic heart failure: Appears euvolemic -Continue lasix (4) S/P AVR: Bioprosthetic valve in 2007 (5) CKD (chronic kidney disease), stage III: -Avoid nephrotoxic agents when possible DVT Prophylaxis DNR/DNI as per discussion with pt Follows with Dr Gayle at [facility] for routine care ROS-No Headache, No Visual Changes, No Nausea, No Vomiting, No Fever, No Chills, No Neck Pain or Stiffness, No Chest Pain, No Palpitations, No SOB, No MORGAN, No Cough, No Sputum, No Wheezing, No Abdominal Pain, No Diarrhea, No Hematemesis, No Hemoptysis, No Unexpected Weight Loss, No Flank pain, No Melena, No Hematochezia, No Frequency, No Urgency, No Burning, No Hematuria, No Rashes, No Diaphoresis. Appetite is Normal Physical Exam Gen-AAO x 3, NAD, Afebrile Head-NCAT, EOMI, PERRLA, Anicteric Sclera, No Posterior Pharyngeal Erythema Neck-Supple, No JVD, No Thyromegaly, No Masses, No LAD, No Bruits Lungs-Clear to Auscultation Bilaterally, No Rales, No Rhonchi, No Wheezing, No Crepitus Chest-No S4, +S1, +S2, No S3, No Murmurs, No Rubs, No Gallops, No Ectopy Abdomen-Soft, Bowel Sounds Present, Non Tender, Non Distended, No Hepatomegaly, No Splenomegaly, No Palpable Masses, No Rebound, No Rigidity, No Guarding Musculoskeletal-Full Range of Motion Bilaterally, No CVAT Extremities-No Cyanosis, No Clubbing, No Edema Nuero-Cranial Nerves II-XII grossly intact, Motor WNL, DTRs WNL, Strength WNL, Non Focal Psych-Normal Mood Admission and Anticipated Discharge Date Admission Date: October 23, 2019 Anticipated date of discharge: 10/27/19 Results & Data Results & Data ([facility]) Vital Signs (Past 12 Hours) Vital Signs Temp Pulse Resp BP Pulse Ox 10/26/19 04:18 36.7 C 65 18 100/47 L 95 10/26/19 00:25 36.7 C 68 18 144/69 H 97 10/25/19 19:44 36.5 C 74 18 138/75 95 (1) Hypertension Hypertension type: unspecified Qualified Code(s): I10 - Essential (primary) hypertension
[2019-10-26] MEDS: ASPIRIN 81 MG ECTAB PO SCH (08:29)
[2019-10-26] MEDS: FEXOFENADINE HCL 180 MG TAB PO SCH (08:29)
[2019-10-26] MEDS: CLOPIDOGREL BISULFATE 75 MG TAB PO SCH (08:29)
[2019-10-26] MEDS: DOCUSATE SODIUM 100 MG CAP PO SCH ×2 (08:29→22:04)
[2019-10-26] MEDS: CHOLECALCIFEROL 1,000 UNITS 25 MCG TAB PO SCH (08:29)
[2019-10-26] MEDS: ATORVASTATIN 40 MG TAB PO SCH (08:29)
[2019-10-26] MEDS: METOPROLOL SUCC 25MG EXT REL TAB PO SCH (08:29)
[2019-10-26] MEDS: OXYBUTYNIN CHLORIDE 5 MG TAB PO SCH (08:29)
[2019-10-26] MEDS: FERROUS SULFATE 325 MG TAB PO SCH ×2 (08:29→17:17)
[2019-10-26] MEDS: PANTOprazole 40 MG TAB PO SCH ×2 (08:29→09:42)
[2019-10-26] MEDS: lisinopriL 10 MG TAB PO SCH (08:30)
[2019-10-26] MEDS: ISOSORBIDE MONO EXTENDED REL 30 MG TABCR PO SCH (08:30)
--- NOTE | 2019-10-26 09:57 | Electrocardiogram Report ---
Test Reason : Blood Pressure : / mmHG Vent. Rate : 067 BPM Atrial Rate : 067 BPM P-R Int : 194 ms QRS Dur : 090 ms QT Int : 458 ms P-R-T Axes : 066 066 077 degrees QTc Int : 483 ms Normal sinus rhythm Cannot rule out Inferior infarct , age undetermined Abnormal ECG When compared with ECG of 24-OCT-2019 06:23, CT interval has decreased Minimal criteria for Inferior infarct are now Present Confirmed by Darrin Coombs ([id number]) on 10/26/2019 9:56:41 AM Referred By: REFERRED SELF Confirmed By:Darrin Coombs
--- NOTE | 2019-10-26 13:24 | Cardiology Progress Note ---
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 Patient states that she feels well with no recurrent chest discomfort. Has already been started on aspirin, Plavix, metoprolol, atorvastatin and Imdur. Will continue. Okay to DC to [facility] when able to. Okay to DC telemetry from a cardiac standpoint. Already scheduled for follow-up with Dr. Lynne on 11/10/2019, recommend patient keep that appointment. (2) S/P AVR: Normal device function by echocardiogram 1 month ago (3) Acute electrocardiogram changes: (4) Anemia: Will need to be followed closely given the need for dual antiplatelet therapy. Recommend follow-up with PCP as an outpatient. (5) Hypertension: Improving. Continue lisinopril, may up titrate as necessary for further control Subjective Patient seen and examined, resting comfortably in bed. States that she feels well. Has not had any chest discomfort since undergoing cardiac catheterization and denies any shortness of breath, palpitations, lightheadedness, dizziness or syncope. She has not had any bleeding at the cath site either. Telemetry reviewed: Normal sinus rhythm without arrhythmia or significant ectopy. Review of Systems Review of Systems: All systems reviewed & are unremarkable except as noted in HPI & below Physical Exam Physical Exam: General: Awake, alert and oriented x 3. No acute distress. HEENT: Normocephalic, atraumatic. Pupils equal, round and reactive to light and accommodation. Extraocular muscles are intact. Anicteric sclera. Moist mucous membranes. Neck: No JVD. No bruit. Cardiovascular: Regular. Positive S-4. Normal S-1 and S-2. No S-3. 3/6 mid to late systolic ejection murmur, greatest at the right sternal border, second intercostal space with radiation to the bilateral carotids. No rubs. Pulmonary: Clear to auscultation bilaterally. No rales, rhonchi, or wheezing. Abdomen: Bowel sounds x 4, soft. No rebound, guarding or tenderness. No organomegaly. Extremities: No clubbing, cyanosis or edema. +2 pedal pulses bilaterally. Skin: Warm and dry. Results & Data Vital Signs (Past 12 Hours) Vital Signs Temp Pulse Resp BP Pulse Ox 10/26/19 07:48 36.4 C L 64 20 168/72 H 96 10/26/19 04:18 36.7 C 65 18 100/47 L 95 (1) Hypertension Hypertension type: unspecified Qualified Code(s): I10 - Essential (primary) hypertension
[2019-10-27 06:07] LABS: Hematocrit (blood only) 26.1 % (37-47); Hemoglobin 8.6 g/dL (12.0-16.0); Mean Corpuscular Volume 94.2 fL (80-100); Mean Platelet Volume 9.3 fL (7.4-10.4); Platelet Count 185 K/uL (130-400); RDW Coefficient of Variation 13.6 % (11.5-14.5); RDW Standard Deviation 47.1 fL (36.4-46.3); Red Blood Count 2.77 M/uL (4.2-5.4); White Blood Count 5.47 K/uL (4.8-10.8)
[2019-10-27 06:39] LABS: BUN Creatinine Ratio 14.7 (10-20); Calcium 8.7 mg/dl (8.5-10.1); Creatinine Clr Calc Pharmacy 40.8 ml/min; Est GFR (Non-African American) 56.1
--- NOTE | 2019-10-27 07:38 | Discharge Summary ---
Date of Service October 27, 2019 Admission HPI Per Admitting Provider Pt is 84 y/o F with PMH recent NSTEMI in 09/2019, HTN, h/o AVR bioprosthetic valve in 2007, chronic diastolic CHF, CKD III, chronic anemia presented to ER with complaint of chest pain today. Patient with history of hospitalization at [facility] 09/28/2019-10/01/2019 for NSTEMI, CHF exacerbation, acute respiratory failure. During that admission initial troponin 0 0.16 trended up to 3.5. Echo with EF > 70%, no wall motion abnormality. Was initially treated with heparin. Patient declined cardiac catheterization. Patient was discharged on aspirin, metoprolol, statin, Lasix 20 mg daily. Today patient states got up was in bathroom when she started with anterior chest pain and heaviness with associated mild shortness of breath. Denies nausea, vomiting, diaphoresis, dizziness, palpitations. Patient states this felt like her chest pain with recent admission however chest pain was not as severe and was not as short of breath. Patient states walked from the bathroom and sat on edge of her bed and chest pain and shortness of breath lessened. EMS gave patient 3 sprays of nitroglycerin with resolution of chest pain and shortness of breath. It is reported EKG by EMS showed ST depression lateral leads which had improved upon ER arrival. Denies fever/chills, diarrhea, constipation, HENLEY, dizziness, syncope, vision changes, neck pain, orthopnea, palpitations, cough, sore throat, choking, otalgia, rhinorrhea, abdominal pain, paresthesias, weakness, extremity weakness, increased extremity edema, rashes, urinary symptoms. Admission Exam Per Admitting Provider General: no distress, WDWN Head: normocephalic, atraumatic Eyes: PERRL, EOM's intact, conjunctiva non-injected, anicteric ENT: normal inspection external ears, nose, mucous membranes moist Neck: supple, trachea midline Lungs: clear, no respiratory distress, no wheezing/rhonchi/rales CV: RRR, +systolic murmur, no JVD, trace pretibial edema Abd: normal BS, soft, non-tender Ext: no cyanosis, no calf tenderness Neuro: A&O x 3, no focal deficits noted, normal affect Skin: warm, dry Principal Diagnosis (1) NSTEMI LAD Stent (2) Hypertension: (3) Chronic diastolic heart failure: (4) S/P AVR: (5) CKD (chronic kidney disease), stage III: Discharge Exam ROS-No Headache, No Visual Changes, No Nausea, No Vomiting, No Fever, No Chills, No Neck Pain or Stiffness, No Chest Pain, No Palpitations, No SOB, No MORGAN, No Cough, No Sputum, No Wheezing, No Abdominal Pain, No Diarrhea, No Hematemesis, No Hemoptysis, No Unexpected Weight Loss, No Flank pain, No Melena, No Hematochezia, No Frequency, No Urgency, No Burning, No Hematuria, No Rashes, No Diaphoresis. Appetite is Normal Physical Exam Gen-AAO x 3, NAD, Afebrile Head-NCAT, EOMI, PERRLA, Anicteric Sclera, No Posterior Pharyngeal Erythema Neck-Supple, No JVD, No Thyromegaly, No Masses, No LAD, No Bruits Lungs-Clear to Auscultation Bilaterally, No Rales, No Rhonchi, No Wheezing, No Crepitus Chest-No S4, +S1, +S2, No S3, No Murmurs, No Rubs, No Gallops, No Ectopy Abdomen-Soft, Bowel Sounds Present, Non Tender, Non Distended, No Hepatomegaly, No Splenomegaly, No Palpable Masses, No Rebound, No Rigidity, No Guarding Musculoskeletal-Full Range of Motion Bilaterally, No CVAT Extremities-No Cyanosis, No Clubbing, No Edema Nuero-Cranial Nerves II-XII grossly intact, Motor WNL, DTRs WNL, Strength WNL, Non Focal Psych-Normal Mood Discharge Data Allergies Allergy/AdvReac Type Severity Reaction Status Date / Time allopurinol Allergy Unknown ON Verified 10/23/19 07:54 [facility] MED LIST Cephalosporins Allergy Unknown ON Verified 10/23/19 07:54 [facility] MED LIST gramicidin D [From Neocidin] Allergy Unknown Unknown Verified 10/23/19 07:54 neomycin [From Neocidin] Allergy Unknown Unknown Verified 10/23/19 07:54 polymyxin B [From Neocidin] Allergy Unknown Unknown Verified 10/23/19 07:54 Consultations 10/23/19 09:32 Consult Case Management - Discharge Planning Routine 10/23/19 13:59 Consult Cardiology Routine Procedures Performed Operation Date: 10/24/19 12:00 Actual Procedures p Cath, Left with Cors and Vent - Matthew Figueroa MD s Cineradiography w/Routine Exam - Issac Peterson MD s Drug Eluting Stent SGl Vessel - Issac Peterson MD Ordered Studies 10/24/19 12:32 CL Cath Imgs for PACS use only Routine Current Diagnoses Anemia, unspecified (10/23/19) Essential (primary) hypertension (10/23/19) Angina pectoris, unspecified (10/23/19) Non-ST elevation (NSTEMI) myocardial infarction (10/23/19) Chronic diastolic (congestive) heart failure (10/23/19) Chronic kidney disease, stage 3 (moderate) (10/23/19) Abnormal electrocardiogram [ECG] [EKG] (10/23/19) Presence of prosthetic heart valve (10/23/19) Allergies allopurinol Allergy (Unknown, Verified 10/23/19 07:54) ON [facility] MED LIST Cephalosporins Allergy (Unknown, Verified 10/23/19 07:54) ON [facility] MED LIST gramicidin D [From Neocidin] Allergy (Unknown, Verified 10/23/19 07:54) Unknown neomycin [From Neocidin] Allergy (Unknown, Verified 10/23/19 07:54) Unknown polymyxin B [From Neocidin] Allergy (Unknown, Verified 10/23/19 07:54) Unknown Height/Weight/Isolation Height 5 ft 5 in Weight 68.1 kg Chemistry 10/25/19 10/26/19 10/27/19 06:28 05:29 05:49 Sodium 136 135 L 136 Potassium 4.1 3.8 4.0 Chloride 107 106 105 Carbon Dioxide 24 24 24 Anion Gap 5.0 5.0 7.0 BUN 15 15 14 Creatinine 0.84 0.90 0.94 Glucose 88 87 90 Hospital Course (1) NSTEMI (non-ST elevated myocardial infarction): Pt is 84 y/o F with PMH recent NSTEMI in 09/2019, HTN, h/o AVR bioprosthetic valve in 2007, chronic diastolic CHF, CKD III, chronic anemia presented to ER with complaint of chest pain today with mild SOB. Relieved with 3 sprays nitro. Patient with history of hospitalization at [facility] 09/28/2019-10/01/2019 for NSTEMI, CHF exacerbation, acute respiratory failure. During that admission initial troponin 0 0.16 trended up to 3.5. Echo with EF > 70%, no wall motion abnormality. Patient declined cardiac catheterization. Treated medically In ER afebrile, P: 81, R: 22 down to 16, BP: 172/82 down to 157/83, 93% on RA. Initial troponin: 0.03. EKG sinus rhythm, 1st degree AV block, ST depression anterior lead. Prior EKG from 09/27/[address] depression lateral leads Angina. ACS Ruled in, s/p cath, LAD Stented, DC to [place] today (2) Hypertension: -Continue lisinopril (3) Chronic diastolic heart failure: Appears euvolemic -Continue lasix (4) S/P AVR: Bioprosthetic valve in 2007 (5) CKD (chronic kidney disease), stage III: -Avoid nephrotoxic agents when possible DVT Prophylaxis DNR/DNI as per discussion with pt Follows with Dr Gayle at [facility] for routine care Total Time Total Time Spent Total Time Spent (In Minutes): 45 mins Total Time Includes: Examination of the Patient, Discharge Planning, Medication Reconciliation and Communication With Other Providers Discharge Plan Discharge Items Patient Disposition: Home - Home Health Services Reason For Visit: CP Discharge Diagnosis: (1) NSTEMI LAD Stent (2) Hypertension: (3) Chronic diastolic heart failure: (4) S/P AVR: (5) CKD (chronic kidney disease), stage III: Condition on Discharge: Good Activity: Resume your previous activity Lifting: Gradually increase as tolerated Bathing: No limitations Exercise/Sports: Gradually increase as tolerated Driving/Machine Use: none Weightbearing: Full weightbearing Weightbearing Comment: Wheeled Walker c brakes Non-emergency contact: Primary Care Provider and Health And Wellness Instructor Call non-emergency contact if: you have any medication questions Follow-up/Referrals: Matthew Figueroa MD [Physician[facility] - Diet: Heart Healthy Addtl Attending Provider Instructions: none Pending Studies at Discharge: No Skilled Items Patient informed of condition?: Yes DNR: Yes Discharge Level of Care: Other Communicable Disease: No Discharge Prognosis: Stable Lines: None Urinary Catheter: No Medications and DC Order Prescriptions: New isosorbide mononitrate 30 mg Tablet Extended Release 24 Hr 30 mg PO QAM Qty: 30 RF: 0 clopidogrel 75 mg Tablet 75 mg PO QAM Qty: 30 RF: 0 pantoprazole 40 mg Tablet,Delayed Release (Dr/Ec) 40 mg PO DAILY Qty: 30 RF: 0 nitroglycerin [Nitrostat] 0.4 mg Tablet, Sublingual 0.4 mg sublingual UD PRN (Reason: chest pain) Qty: 30 RF: 0 Continued aspirin [Aspirin Low Dose] 81 mg Tablet,Delayed Release (Dr/Ec) 81 mg PO DAILY RF: 0 docusate sodium 100 mg Capsule 100 mg PO BID RF: 0 furosemide 20 mg Tablet 20 mg PO DAILYBB RF: 0 metoprolol succinate 25 mg Tablet Extended Release 24 Hr 12.5 mg PO DAILY RF: 0 cholecalciferol (vitamin D3) 1,000 unit Tablet 1,000 unit PO DAILY RF: 0 acetaminophen [Acetaminophen Extra Strength] 500 mg Tablet 500 mg PO Q4 MDD 3 GRAMS/24 HOURS PRN (Reason: Pain) RF: 0 amoxicillin 500 mg Tablet 2,000 mg PO DAILY PRN (Reason: prior to dental procedures) RF: 0 ferrous sulfate 325 mg (65 mg iron) Tablet 325 mg PO BID RF: 0 sennosides 8.6 mg Tablet 8.6 mg PO DAILY PRN (Reason: Constipation) RF: 0 fexofenadine 180 mg Tablet 180 mg PO DAILY RF: 0 hydrocortisone 1 % Cream 1 applic TOPICAL DIRECTED PRN (Reason: Skin Irritation) RF: 0 Mucinex DM 30-600 mg Tablet Extended Release 12 Hr 1 tab PO Q12H PRN (Reason: Congestion) RF: 0 oxybutynin chloride 5 mg Tablet 5 mg PO DAILY RF: 0 Antacid-Simethicone 400-400-40 mg/5 mL Suspension 10 - 20 ml PO QID PRN (Reason: HEARTBURN/INDIGESTION/GAS) RF: 0 tobramycin-dexamethasone [TobraDex] 0.3-0.1 % Drops,Suspension 1 drp OPB QID PRN (Reason: NEEDED) RF: 0 Rosemarie Protect Cream 1 applic TOPICAL DAILY PRN (Reason: Skin Irritation) RF: 0 nitroglycerin [Nitrostat] 0.4 mg Tablet, Sublingual 0.4 mg sublingual UD PRN (Reason: chest pain) Qty: 25 RF: 2 lisinopril 10 mg Tablet 10 mg PO DAILY Qty: 30 RF: 5 atorvastatin 40 mg tablet 40 mg PO DAILY Qty: 30 RF: 5 Discontinued omeprazole 20 mg Capsule,Delayed Release(Dr/Ec) 20 mg PO DAILY RF: 0 Discharge Orders: Discharge Order (Routine); Ordered 10/27/19 Ordered By: Jann Torres Admission Data Admit Date/Time: 10/23/19 08:47 Attending Provider: Jann Torres Admit Provider: Jann Torres [facility] Other Providers: Matthew Figueroa
[2019-10-27] MEDS: DOCUSATE SODIUM 100 MG CAP PO SCH (07:52)
[2019-10-27] MEDS: CHOLECALCIFEROL 1,000 UNITS 25 MCG TAB PO SCH (07:52)
[2019-10-27] MEDS: lisinopriL 10 MG TAB PO SCH (07:52)
[2019-10-27] MEDS: FERROUS SULFATE 325 MG TAB PO SCH (07:52)
[2019-10-27] MEDS: ATORVASTATIN 40 MG TAB PO SCH (07:53)
[2019-10-27] MEDS: ISOSORBIDE MONO EXTENDED REL 30 MG TABCR PO SCH (07:53)
[2019-10-27] MEDS: CLOPIDOGREL BISULFATE 75 MG TAB PO SCH (07:53)
[2019-10-27] MEDS: ASPIRIN 81 MG ECTAB PO SCH (07:53)
[2019-10-27] MEDS: METOPROLOL SUCC 25MG EXT REL TAB PO SCH (07:53)
[2019-10-27] MEDS: OXYBUTYNIN CHLORIDE 5 MG TAB PO SCH (07:54)
[2019-10-27] MEDS: PANTOprazole 40 MG TAB PO SCH (07:54)
[2019-10-27] MEDS: FEXOFENADINE HCL 180 MG TAB PO SCH (07:54)
[2019-10-27] MEDS ORDERED: FUROSEMIDE 20 MG TAB PO SCH (08:00)
--- NOTE | 2019-10-27 13:12 | Cardiology Progress Note ---
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 Patient states that she feels well with no recurrent chest discomfort. Has already been started on aspirin, Plavix, metoprolol, atorvastatin and Imdur. Will continue. Okay to DC to [facility] when able to. Already scheduled for follow-up with Dr. Lynne on 11/10/2019, recommend patient keep that appointment. (2) S/P AVR: Normal device function by echocardiogram 1 month ago (3) Acute electrocardiogram changes: (4) Anemia: Will need to be followed closely given the need for dual antiplatelet therapy. Recommend follow-up with PCP as an outpatient. (5) Hypertension: Improving. Continue lisinopril, may up titrate as necessary for further control Subjective Patient seen and examined, resting comfortably in bed. States that she feels well. Has not had any chest discomfort since undergoing cardiac catheterization and denies any shortness of breath, palpitations, lightheadedness, dizziness or syncope. She has not had any bleeding at the cath site either. Telemetry reviewed: Normal sinus rhythm without arrhythmia or significant ectopy. Review of Systems Review of Systems: All systems reviewed & are unremarkable except as noted in HPI & below Physical Exam Physical Exam: General: Awake, alert and oriented x 3. No acute distress. HEENT: Normocephalic, atraumatic. Pupils equal, round and reactive to light and accommodation. Extraocular muscles are intact. Anicteric sclera. Moist mucous membranes. Neck: No JVD. No bruit. Cardiovascular: Regular. Positive S-4. Normal S-1 and S-2. No S-3. 3/6 mid to late systolic ejection murmur, greatest at the right sternal border, second intercostal space with radiation to the bilateral carotids. No rubs. Pulmonary: Clear to auscultation bilaterally. No rales, rhonchi, or wheezing. Abdomen: Bowel sounds x 4, soft. No rebound, guarding or tenderness. No organomegaly. Extremities: No clubbing, cyanosis or edema. +2 pedal pulses bilaterally. Skin: Warm and dry. Results & Data Vital Signs (Past 12 Hours) Vital Signs Temp Pulse Pulse Resp BP Pulse Ox 10/27/19 13:03 36.8 C 71 72 18 128/65 96 10/27/19 13:01 36.8 C 71 72 18 128/65 96 10/27/19 07:00 36.8 C 71 18 128/65 96 10/27/19 04:00 36.7 C 59 L 17 110/55 L 95 (1) Hypertension Hypertension type: unspecified Qualified Code(s): I10 - Essential (primary) hypertension
--- NOTE | 2019-12-19 10:04 | Coding Query ---
It clearly states in my notes and Dr Dean's notes that she had a NSTEMI CODING QUERY To promote full compliance with coding requirements relating to patient care, provider participation is requested in all cases of surgical coder uncertainty. Please assist us with the question(s) below: Coding Question(s): Please clarify for coding purposes. In your clinical opinion, is this patient being managed for: Subsequent NSTEMI The medical record reflects the following clinical findings, treatment, and risk factors. Clinical Indicators: 84 yo female presenting after developing chest pain and dyspnea. Trops 0.032/0.454/0.483/0.306. Treatment: tele, IV heparin, cardiology consult, serial trops, add imdur and increase metoprolol, NTG and ASA by EMS Risk Factors:recent NSTEMI within past 4 weeks, CKD stage III, HTn, chronic diastolic CHF, hx smoking Physician's Response(s): Thank you Latonia Rojas Principal Diagnosis: "that condition established after study, to be chiefly responsible for occasioning the admission of the patient to the hospital for care." Co-Existing Principal Diagnosis: "when two or more diagnoses equally meet the criteria for principal diagnosis as determined by the circumstances of admission, diagnostic work up, and/or therapy provided, and the Alphabetic Index, Tabular List, or another coding guideline does not provide sequencing direction, any one of the diagnoses may be sequenced first." "When the physician has documented what appears to be a current diagnosis in the body of the record, but has not included the diagnosis in the final diagnostic statement, the physician should be asked whether the diagnosis should be added." (Source [facility]oding [facility] 2 QTR90. p3-4) MEDARDO
== END 2019-10-27 14:10 | disposition home or self-care (01) | DRG 247 ==
LOC: ED 07:25 → 2S 08:47
PROC: CLB.CCO (2019-10-24 12:00)

== ENCOUNTER 2022-08-04 01:23 | Inpatient (IN) ==
[2022-08-04] MEDS ORDERED: LABETALOL HCL IV 5 MG/ML 20ML IV STA (01:41)
--- NOTE | 2022-08-04 01:44 | Emergency Department Note ---
Impression & Plan Elevated troponin ADMIT ED Provider Note HPI: The patient is an 87-year-old female who presents the emergency department from [facility] over concern for altered mental status. This is reportedly been worsening over the past several days. On arrival here to the ED the patient is oriented to place but does take her a prolonged period to respond to my questions. She does not have any focal deficits on arrival. Patient is noted to be hypertensive on arrival at 230 systolic but otherwise is hemodynamically stable, she is alert, she is in no acute physical distress on my initial assessment. ROS: - Per HPI *Outpatient medications and allergy history reviewed. *Pertinent external medical records reviewed. PE: General: Alert, frail-appearing, no acute distress HEENT: Normocephalic, trachea midline Eyes: Extraocular eye movement is intact, no scleral erythema Pulmonary: Clear to auscultation bilaterally, no wheezing Cardio: Regular rate and rhythm GI: Abdomen is soft, nontender : No suprapubic tenderness MSK: No evidence of trauma or malformation of the extremities, no edema Skin: No evidence of rash Neuro: Alert, no focal deficits, follows commands, equal bilateral manager primary strength Psychiatric: Cooperative personnel monitor: - An order was placed for continuous cardiac monitoring - Patient was noted to be in sinus rhythm with a rate of 87 EKG: (As interpreted by myself): Rate: 88 Rhythm: Sinus rhythm Intervals: Within normal limits ST changes: No ST elevation Time: 0136 Interventions provided in ED: -IV labetalol CT HEAD: Involutional changes. No acute intracranial abnormality. No hemorrhage. No visible infarct or mass. Osseous structures are intact. Radiologist: Devin Schafer MD Medical Decision Making: Patient presented to the emergency department with some worsening confusion over the past several days, on arrival here to the ED she is alert to place and self. Unclear if this is her baseline. Patient is otherwise in no acute distress on my initial evaluation but blood pressure is markedly elevated at 230 systolic, IV established, lab work was obtained, patient was placed on director of cardiac rehabilitation, she was ordered IV labetalol shortly after arrival for her blood pressure. CT imaging of the head was obtained, no evidence of any intracranial hemorrhage is noted. Urinalysis does not show any evidence of infection, patient does not have a leukocytosis, procalcitonin is low, low suspicion for infectious etiology as a source of her symptoms. Troponin is elevated at 130, I do not see any acute abnormalities on the patient's chest x-ray. She does not complain of any chest pain. EKG does not show any evidence of ST elevation. Blood pressure did improve to 183/91 on my reassessment from her initial presenting 230 systolic. I suspect that her symptoms may be related to hypertension, given the patient's elevated troponin and blood pressure, she will be admitted for further care. I did discuss the patient's presentation with her daughter, Jessica, on the phone, she is updated and aware of the plan of care. Patient is noted to be DO NOT RESUSCITATE code measures. Case was discussed with the on-call hospitalist for [facility], Dr. Fernandez, the patient was placed for admission and stable condition. * CRITICAL CARE TIME: (45) minutes -Stabilization of hypertensive emergency with blood pressure at 230 systolic and elevated troponin, requiring IV medications for improvement, time spent at the bedside, discussion with other physicians and arrangement of admission. Diagnosis: 1. Hypertensive emergency 2. Elevated troponin 3. Altered mental status Disposition: Admission Carlos Oswald DO Emergency Medicine Past Med/Surg History Medical History (Updated 08/04/22 @ 04:03 by Carlos Oswald DO) Aortic valve stenosis Cervical cancer 1997--sx Chronic diastolic heart failure Chronic kidney disease, stage 3 (moderate) Diverticular disease Dyslipidemia Gout Gout History of colon polyps History of esophageal dilatation History of falling Hypertension NSTEMI (non-ST elevated myocardial infarction) 09/2019 Osteoarthritis Polymyalgia rheumatica Schatzki's ring Status post closed fracture of right femur Surgical History H/O aortic valve replacement 09/2007 @ [facility] [place] H/O cataract extraction H/O total hysterectomy History of breast biopsy History of cardiac cath 08/20/2007 History of cholecystectomy History of colonoscopy History of esophagogastroduodenoscopy (EGD) History of vein stripping x2 Family History Mother Rectal cancer Social History Smoking Status: Former smoker Tobacco Type: Cigarettes Second Hand Exposure: No; Hx Alcohol Use: No Hx Substance Use: No Preferred Language: Gabonese Communication Ability: Effective Bus Transportation Manager Required: No Beliefs That Will Affect Care: None Current Living Situation: Personal Care Facility Current Living Situation Comment: [facility] current occupational status: retired Feels Safe at Home: Yes Assistive Devices: Glasses and Walker Allergies Allergies Allergy/AdvReac Type Severity Reaction Status Date / Time allopurinol Allergy Unknown ON ASSINIBOINE AND GROS [place]ENTRE TRIBES Verified 08/04/22 02:12 [place] [facility] Cephalosporins Allergy Unknown ON ASSINIBOINE AND [place] TRIBES Verified 08/04/22 02:12 [place] [facility] gramicidin D [From Neocidin] Allergy Unknown Redness of Verified 08/04/22 02:13 Skin neomycin [From Neocidin] Allergy Unknown Redness of Verified 08/04/22 02:13 Skin polymyxin B [From Neocidin] Allergy Unknown Redness of Verified 08/04/22 02:13 Skin Home Meds Home Medications Medication Instructions Recorded Confirmed aspirin 81 mg tablet,delayed 81 mg PO DAILY 06/11/18 08/04/22 release (Lyly Low Dose Aspirin) cholecalciferol (vitamin D3) 25 1,000 unit PO DAILY 06/11/18 08/04/22 mcg (1,000 unit) tablet docusate sodium 100 mg capsule 100 mg PO BID 06/11/18 08/04/22 furosemide 20 mg tablet 20 mg PO DAILYBB 06/11/18 08/04/22 metoprolol succinate 25 mg 12.5 mg PO DAILY 06/11/18 08/04/22 tablet,extended release 24 hr acetaminophen 500 mg tablet 500 mg PO Q4 PRN Pain 07/29/18 08/04/22 (Acetaminophen Extra Strength) ferrous sulfate 325 mg (65 mg 325 mg PO TID 07/29/18 08/04/22 iron) tablet aluminum-mag hydroxide-simethicone 10 - 20 ml PO QID PRN 09/27/19 08/04/22 400 mg-400 mg-40 mg/5 mL oral susp HEARTBURN/INDIGESTION/GAS (Antacid-Simethicone) dextromethorphan-guaifenesin 30 1 tab PO Q12H PRN Congestion 09/27/19 08/04/22 mg-600 mg tablet extended [id number] hr (Mucinex DM) dimethicone-zinc oxide topical 1 applic topical DAILY PRN Skin 09/27/19 08/04/22 cream (Rosemarie Protect Irritation (dimethicone-zinc oxide) topical cream) fexofenadine 180 mg tablet 180 mg PO DAILY 09/27/19 08/04/22 hydrocortisone 1 % topical cream 1 applic topical DIRECTED PRN 09/27/19 08/04/22 Rash oxybutynin chloride 5 mg tablet 5 mg PO DAILY 09/27/19 08/04/22 sennosides 8.6 mg tablet 8.6 mg PO DAILY PRN Constipation 09/27/19 08/04/22 amoxicillin 500 mg capsule 2,000 mg PO DAILY PRN 1 hour prior 08/04/22 08/04/22 to dental work docosanol 10 % topical cream 1 applic topical UD PRN Cold Sores 08/04/22 08/04/22 (Abreva) lisinopril 5 mg tablet 5 mg PO DAILY 08/04/22 08/04/22 loperamide 2 mg tablet 2 mg PO UD PRN Diarrhea 08/04/22 08/04/22 (Anti-Diarrheal (loperamide)) nystatin 100,000 unit/gram topical 1 applic topical BID PRN fungus 08/04/22 08/04/22 cream omeprazole 20 mg capsule,delayed 20 mg PO DAILY 08/04/22 08/04/22 release peg 400-propylene glycol (PF) 0.4 1 drp OPB BID 08/04/22 08/04/22 %-0.3 % eye drops in a dropperette (Systane (PF)) psyllium seed (sugar) oral powder 1 tbsp PO DAILY 08/04/22 08/04/22 (Metamucil [place] oral powder) sertraline 50 mg tablet 50 mg PO QAM 08/04/22 08/04/22 trolamine salicylate 10 % topical 1 applic topical QID PRN Pain 08/04/22 08/04/22 cream (Aspercreme) Previous Rx's Medication Instructions Recorded atorvastatin 40 mg tablet 40 mg PO DAILY #30 tabs 10/01/19 nitroglycerin 0.4 mg sublingual 0.4 mg sublingual UD PRN chest 10/01/19 tablet (Nitrostat) pain #25 tabs isosorbide mononitrate 30 mg 30 mg PO QAM #30 tabs 10/27/19 tablet,extended release 24 hr Results & Data (ED) Vital Signs Vital Signs - 24 hr 08/04/22 01:31 08/04/22 01:15 08/04/22 01:31 Temperature 36.7 C 36.8 C Temperature Source Oral Oral Pulse Rate 79 Pulse Rate [Apical] 88 Pulse Rate from SpO2 Sensor Pulse Rhythm Respiratory Rate 24 19 Respiratory Effort / Characteristics Non-Labored Spontaneous Non-Labored Spontaneous Respiratory Depth Normal Normal Blood Pressure 230/125 H Blood Pressure [Right Arm] 230/125 H Blood Pressure Mean 160 Blood Pressure Mean [Right Arm] 160 Pulse Oximetry 97 98 97 Oxygen Delivery Method Room Air Room Air Room Air Sepsis Recent Fever Within 48 Hours No Sepsis New/Unexplained Change in Mental Status Yes Sepsis Action Taken by Nursing No Action Required 08/04/22 01:39 08/04/22 01:39 08/04/22 01:33 Temperature 36.8 C Temperature Source Oral Pulse Rate 66 86 Pulse Rate [Apical] 68 Pulse Rate from SpO2 Sensor 83 Pulse Rhythm Regular Respiratory Rate 16 18 21 Respiratory Effort / Characteristics Non-Labored Spontaneous Respiratory Depth Normal Blood Pressure 230/125 H Blood Pressure [Right Arm] 183/91 H Blood Pressure Mean 160 Blood Pressure Mean [Right Arm] 121 Pulse Oximetry 96 97 97 Oxygen Delivery Method Room Air Room Air Sepsis Recent Fever Within 48 Hours Sepsis New/Unexplained Change in Mental Status Sepsis Action Taken by Nursing 08/04/22 01:40 08/04/22 01:50 08/04/22 02:00 Temperature Temperature Source Pulse Rate 78 79 66 Pulse Rate [Apical] Pulse Rate from SpO2 Sensor 78 81 Pulse Rhythm Respiratory Rate 18 20 22 Respiratory Effort / Characteristics Respiratory Depth Blood Pressure Blood Pressure [Right Arm] Blood Pressure Mean Blood Pressure Mean [Right Arm] Pulse Oximetry 98 97 Oxygen Delivery Method Sepsis Recent Fever Within 48 Hours Sepsis New/Unexplained Change in Mental Status Sepsis Action Taken by Nursing 08/04/22 02:09 08/04/22 02:10 08/04/22 02:20 Temperature Temperature Source Pulse Rate 67 68 70 Pulse Rate [Apical] Pulse Rate from SpO2 Sensor 66 66 69 Pulse Rhythm Respiratory Rate 18 17 23 Respiratory Effort / Characteristics Respiratory Depth Blood Pressure 183/91 H Blood Pressure [Right Arm] Blood Pressure Mean 121 Blood Pressure Mean [Right Arm] Pulse Oximetry 97 96 96 Oxygen Delivery Method Sepsis Recent Fever Within 48 Hours Sepsis New/Unexplained Change in Mental Status Sepsis Action Taken by Nursing 08/04/22 02:33 08/04/22 03:00 08/04/22 03:30 Temperature Temperature Source Pulse Rate 74 76 88 Pulse Rate [Apical] Pulse Rate from SpO2 Sensor 76 88 Pulse Rhythm Respiratory Rate 19 16 21 Respiratory Effort / Characteristics Respiratory Depth Blood Pressure Blood Pressure [Right Arm] Blood Pressure Mean Blood Pressure Mean [Right Arm] Pulse Oximetry 98 96 Oxygen Delivery Method Sepsis Recent Fever Within 48 Hours Sepsis New/Unexplained Change in Mental Status Sepsis Action Taken by Nursing 08/04/22 04:00 Temperature Temperature Source Pulse Rate 76 Pulse Rate [Apical] Pulse Rate from SpO2 Sensor 75 Pulse Rhythm Respiratory Rate 16 Respiratory Effort / Characteristics Respiratory Depth Blood Pressure 211/98 H Blood Pressure [Right Arm] Blood Pressure Mean 135 Blood Pressure Mean [Right Arm] Pulse Oximetry 97 Oxygen Delivery Method Sepsis Recent Fever Within 48 Hours Sepsis New/Unexplained Change in Mental Status Sepsis Action Taken by Nursing Laboratory Data 08/04/22 02:10 08/04/22 02:10 Lab Results 08/04/22 08/04/22 08/04/22 Range/Units 02:10 02:10 02:10 WBC 10.21 (4.8-10.8) K/ul RBC 3.90 L (3.93-5.22) M/uL Hgb 12.7 (12.0-16.0) g/dl Hct 36.8 (34.1-44.9) % MCV 94.4 (80.0-100.0) fL MCH 32.6 (25.0-34.0) pg MCHC 34.5 (32.0-36.0) g/dL RDW Std Deviation 45.3 (36.4-46.3) fL RDW Coeff of Jimmie 13.1 (11.5-14.5) % Plt Count 220 (130-400) K/uL MPV 10.2 (9.4-12.3) fL Immature Gran % (Auto) 0.3 % Neut % (Auto) 80.8 % Lymph % (Auto) 9.7 % [place] % (Auto) 7.7 % Eos % (Auto) 1.2 % Baso % (Auto) 0.3 % Neut # (Auto) 8.25 H (1.4-6.5) K/uL Lymph # (Auto) 0.99 L (1.2-3.4) K/uL [place] # (Auto) 0.79 (0.24-0.82) K/uL Eos # (Auto) 0.12 (0-0.50) K/uL Baso # (Auto) 0.03 (0-0.2) K/uL Immature Gran # (Auto) 0.03 H (0.00-0.02) K/uL Sodium 133 L (136-145) mmol/L Potassium TNP Chloride 99 (98-107) mmol/L Carbon Dioxide 26 (21-32) mmol/L Anion Gap 8 (3-11) BUN 26 H (6-23) mg/dl Creatinine 0.97 (0.6-1.2) mg/dl Est Cr Clr Drug Dosing 42.0 ml/min Est GFR ( Amer) 61.3 ml/min Est GFR (Non-Af Amer) 52.9 ml/min BUN/Creatinine Ratio 26.8 H (10-20) Glucose 126 H (70-99(Fasting)) mg/dl Lactate 1.0 (0.4-2.0) mmol/L Calcium 9.7 (8.5-10.1) mg/dl Magnesium 1.9 (1.7-2.4) mg/dl Total Bilirubin 1.7 H (0.2-1.0) mg/dl Direct Bilirubin TNP AST TNP ALT 15 (7-52) U/L Alkaline Phosphatase 76 (34-104) U/L Troponin I High Sens 130.1 H* (0-14) pg/ml Total Protein 7.0 (6.0-8.3) gm/dl Albumin 4.2 (3.4-5.0) gm/dl Procalcitonin (0-0.5) ng/ml Urine Color Urine Appearance (Clear) Urine pH (4.5-7.5) Ur Specific [place] (1.000-1.030) Urine Protein (Negative) Urine Glucose (UA) (Negative) Urine Ketones (Negative) Urine Blood (Negative) Urine Nitrite (Negative) Urine Bilirubin (Negative) Urine Urobilinogen (Negative) Ur Leukocyte Esterase (Negative) Urine WBC (Auto) (0-5) /hpf Urine RBC (Auto) (0-4) /hpf U Hyaline Cast (Auto) (0-5) /lpf U Epithel Cells (Auto) (0-5) /lpf Urine Bacteria (Auto) (Negative) 01/13/23 01/13/23 Range/Units 02:10 02:55 WBC (4.8-10.8) K/ul RBC (3.93-5.22) M/uL Hgb (12.0-16.0) g/dl Hct (34.1-44.9) % MCV (80.0-100.0) fL MCH (25.0-34.0) pg MCHC (32.0-36.0) g/dL RDW Std Deviation (36.4-46.3) fL RDW Coeff of Jimmie (11.5-14.5) % Plt Count (130-400) K/uL MPV (9.4-12.3) fL Immature Gran % (Auto) % Neut % (Auto) % Lymph % (Auto) % Ro[place] % (Auto) % Eos % (Auto) % Baso % (Auto) % Neut # (Auto) (1.4-6.5) K/uL Lymph # (Auto) (1.2-3.4) K/uL [place] # (Auto) (0.24-0.82) K/uL Eos # (Auto) (0-0.50) K/uL Baso # (Auto) (0-0.2) K/uL Immature Gran # (Auto) (0.00-0.02) K/uL Sodium (136-145) mmol/L Potassium Chloride (98-107) mmol/L Carbon Dioxide (21-32) mmol/L Anion Gap (3-11) BUN (6-23) mg/dl Creatinine (0.6-1.2) mg/dl Est Cr Clr Drug Dosing ml/min Est GFR ( Amer) ml/min Est GFR (Non-Af Amer) ml/min BUN/Creatinine Ratio (10-20) Glucose (70-99(Fasting)) mg/dl Lactate (0.4-2.0) mmol/L Calcium (8.5-10.1) mg/dl Magnesium (1.7-2.4) mg/dl Total Bilirubin (0.2-1.0) mg/dl Direct Bilirubin AST ALT (7-52) U/L Alkaline Phosphatase (34-104) U/L Troponin I High Sens (0-14) pg/ml Total Protein (6.0-8.3) gm/dl Albumin (3.4-5.0) gm/dl Procalcitonin < 0.05 (0-0.5) ng/ml Urine Color Yellow Urine Appearance Clear (Clear) Urine pH 7.5 (4.5-7.5) Ur Specific [place] 1.013 (1.000-1.030) Urine Protein 3+ H (Negative) Urine Glucose (UA) Negative (Negative) Urine Ketones Negative (Negative) Urine Blood Negative (Negative) Urine Nitrite Negative (Negative) Urine Bilirubin Negative (Negative) Urine Urobilinogen Negative (Negative) Ur Leukocyte Esterase Negative (Negative) Urine WBC (Auto) 1-5 (0-5) /hpf Urine RBC (Auto) 0-4 (0-4) /hpf U Hyaline Cast (Auto) 0 (0-5) /lpf U Epithel Cells (Auto) 10-20 H (0-5) /lpf Urine Bacteria (Auto) Negative (Negative) Administered Medications Discontinued Medications Labetalol HCl (Labetalol Hcl Iv 5 Mg/Ml 20ml) 10 mg IV NOW STA Stop: 08/04/22 01:42 Last Admin: 08/04/22 01:52 Dose: 10 mg Documented By: LINDA Co-signed By: YUSRA Discharge Plan Visit Data Chief Complaint: Altered Mental Status Stated Complaint: ALTERED MENTAL STATUS ED Provider: Carlos Oswald Discharge Problem: Elevated troponin Forms Stand Alone Forms: [facility] Prescriptions Prescriptions: No Action aspirin [Lyly Low Dose Aspirin] 81 mg Tablet,Delayed Release (Dr/Ec) 81 mg PO DAILY docusate sodium 100 mg Capsule 100 mg PO BID furosemide 20 mg Tablet 20 mg PO DAILYBB metoprolol succinate 25 mg Tablet Extended Release 24 Hr 12.5 mg PO DAILY cholecalciferol (vitamin D3) 1,000 unit Tablet 1,000 unit PO DAILY acetaminophen [Acetaminophen Extra Strength] 500 mg Tablet 500 mg PO Q4 MDD 3 GRAMS/24 HOURS PRN (Reason: Pain) ferrous sulfate 325 mg (65 mg iron) Tablet 325 mg PO TID sennosides 8.6 mg Tablet 8.6 mg PO DAILY PRN (Reason: Constipation) fexofenadine 180 mg Tablet 180 mg PO DAILY hydrocortisone 1 % Cream 1 applic TOPICAL DIRECTED PRN (Reason: Rash) Mucinex DM 30-600 mg Tablet Extended Release 12 Hr 1 tab PO Q12H PRN (Reason: Congestion) oxybutynin chloride 5 mg Tablet 5 mg PO DAILY alum-mag hydroxide-simeth [Antacid-Simethicone] 400-400-40 mg/5 mL Suspension 10 - 20 ml PO QID PRN (Reason: HEARTBURN/INDIGESTION/GAS) Rosemarie Protect(dimethicone-zinc) Cream 1 applic TOPICAL DAILY PRN (Reason: Skin Irritation) nitroglycerin [Nitrostat] 0.4 mg Tablet, Sublingual 0.4 mg sublingual UD PRN (Reason: chest pain) Qty: 25 2RF Rx Instructions: dissolve 1 tablet under tongue as needed , may repeat x 3 doses for chest pain atorvastatin 40 mg tablet 40 mg PO DAILY Qty: 30 5RF isosorbide mononitrate 30 mg Tablet Extended Release 24 Hr 30 mg PO QAM Qty: 30 0RF sertraline 50 mg tablet 50 mg PO QAM lisinopril 5 mg tablet 5 mg PO DAILY omeprazole 20 mg Capsule,Delayed Release(Dr/Ec) 20 mg PO DAILY Systane (PF) 0.4-0.3 % Dropperette 1 drp OPB BID amoxicillin 500 mg capsule 2,000 mg PO DAILY PRN (Reason: 1 hour prior to dental work) docosanol [Abreva] 10 % Cream 1 applic TOPICAL UD PRN (Reason: Cold Sores) Rx Instructions: may keep at bedside loperamide [Anti-Diarrheal (loperamide)] 2 mg Tablet 2 mg PO UD MDD 4 PRN (Reason: Diarrhea) Rx Instructions: take 2 tablets after 1st loose stool, then 1 tablet thereafter each loose stool max of 4 tabs in 24 hours nystatin 100,000 unit/gram Cream 1 applic TOPICAL BID PRN (Reason: fungus) trolamine salicylate [Aspercreme] 10 % Cream 1 applic TOPICAL QID PRN (Reason: Pain) Rx Instructions: may keep at bedside for independent use Metamucil [place] Powder 1 tbsp PO DAILY Rx Instructions: mix into 6-8 ounces of fluid and drink Referrals [facility]: [facility] [Primary Care Provider] -
[2022-08-04 02:29] LABS: Basophils # (auto) 0.03 K/uL (0-0.2); Basophils % (auto) 0.3 %; Eosinophils # (auto) 0.12 K/uL (0-0.50); Eosinophils % (auto) 1.2 %; Hematocrit (blood only) 36.8 % (34.1-44.9); Hemoglobin 12.7 g/dl (12.0-16.0); Immature Granulocytes # (auto) 0.03 K/uL (0.00-0.02); Immature Granulocytes % (auto) 0.3 %; Lymphocytes # (auto) 0.99 K/uL (1.2-3.4); Lymphocytes % (auto) 9.7 %; Mean Corpuscular Hemoglobin 32.6 pg (25.0-34.0); Mean Corpuscular Hgb Conc 34.5 g/dL (32.0-36.0); Mean Corpuscular Volume 94.4 fL (80.0-100.0); Mean Platelet Volume 10.2 fL (9.4-12.3); Monocytes # (auto) 0.79 K/uL (0.24-0.82); Monocytes % (auto) 7.7 %; Neutrophils # (auto) 8.25 K/uL (1.4-6.5); Neutrophils % (auto) 80.8 %; Platelet Count 220 K/uL (130-400); RDW Coefficient of Variation 13.1 % (11.5-14.5); RDW Standard Deviation 45.3 fL (36.4-46.3); White Blood Count 10.21 K/ul (4.8-10.8)
[2022-08-04 03:10] LABS: Alanine Aminotransferase 15 U/L (7-52); Albumin Level 4.2 gm/dl (3.4-5.0); Alkaline Phosphatase 76 U/L (34-104); Anion Gap 8 (3-11); BUN Creatinine Ratio 26.8 (10-20); Bilirubin,Total 1.7 mg/dl (0.2-1.0); Blood Urea Nitrogen 26 mg/dl (6-23); Calcium 9.7 mg/dl (8.5-10.1); Carbon Dioxide 26 mmol/L (21-32); Chloride 99 mmol/L (98-107); Est GFR (African American) 61.3 ml/min; Est GFR (Non-African American) 52.9 ml/min; Glucose 126 mg/dl (70-99(Fasting)); Magnesium 1.9 mg/dl (1.7-2.4); Sodium 133 mmol/L (136-145); Troponin I High Sensitivity 130.1 pg/ml (0-14)
[2022-08-04 03:25] LABS: Appearance Urine Clear (Clear); Bacteria Urine Automated Negative (Negative); Bilirubin Urine Negative (Negative); Blood Urine Negative (Negative); Cast Urine Automated 0 /lpf (0-5); Color Urine Yellow; Glucose Urine UA Negative (Negative); Ketones Urine Negative (Negative); Leukocyte Esterase Urine Negative (Negative); Nitrite Urine Negative (Negative); RBC Urine Automated 0-4 /hpf (0-4); Specific Gravity Urine 1.013 (1.000-1.030); Urobilinogen Urine Negative (Negative); pH Urine 7.5 (4.5-7.5)
[2022-08-04 03:54] LABS: Protein Urine 3+ (Negative)
--- NOTE | 2022-08-04 04:23 | History & Physical Report ---
Date of Service August 04, 2022 Assessment & Plan (1) Encephalopathy: Plan: Multifactorial : Hypertensive crisis ? Recent sertraline Rx for possible depression Troponin elevation secondary to above hx CAD status post stent aortic stenosis status post bioprosthetic AVR hyperlipidemia, on statin Rx hx PMR cervical cancer status post surgery chronic anemia, hemoglobin better than baseline possibly from hemoconcentration from mild dehydration Hyperglycemia rule out DM Hypokalemia secondary to diuretic Rx, decreased p.o. intake mood disorder PCU Titrate home BP meds Decrease maintenance sertraline dose for now given patient's daughter concerns regarding medication Follow troponin TTE if with progression Replace potassium Gentle IV hydration Hold home diuretic until patient euvolemic Check hemoglobin A1c PT OT eval DVT prophylaxis. Lovenox subcu DNR as per patient's prior directives as per daughter. Patient daughter requesting updates providers. Jaden Jessica Garcias, contact #[phone]. Text document was generated using [employer] voice recognition software. It may contain grammatical or spelling errors. Kindly contact undersigned for clarification of any documentation item in question. History of Present Illness Chief Complaint: Altered mental status Primary Care Provider: [facility] History obtained from patient, family, and records. History from patient secondary to confused state. Medical history significant for CAD status post stent, aortic stenosis status post bioprosthetic AVR, hypertension, hyperlipidemia, PMR, cervical cancer status post surgery, chronic anemia (baseline hemoglobin 9-10), mood disorder. Last confinement October 2019 for NSTEMI. Patient declined cardiac catheterization. Patient noted to be confused about 6 weeks ago as per daughter. Patient daughter concerned about Sertraline Rx initiated around for possible depression. Daughter verbalized concerns to personal care facility staff. She was told that medication seems to be working for patient's depression. This week, patient noted to be more confused than usual. Abdominal pain and dysuria symptoms as per personal care facility report. SBP noted to be 230s upon arrival at the ER. Blood pressure not checked at personal care facility as per staff. Patient unable to respond to questions regarding headache, chest pain, shortness of breath, abdominal pain, medication compliance. IV labetalol administered at the ER. 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 Allergies Allergy/AdvReac Type Severity Reaction Status Date / Time allopurinol Allergy Unknown ON Verified 08/04/22 02:12 [facility] Cephalosporins Allergy Unknown ON Verified 08/04/22 02:12 [facility] gramicidin D [From Neocidin] Allergy Unknown Redness of Verified 08/04/22 02:13 Skin neomycin [From Neocidin] Allergy Unknown Redness of Verified 08/04/22 02:13 Skin polymyxin B [From Neocidin] Allergy Unknown Redness of Verified 08/04/22 02:13 Skin Home Medications Medication Instructions Recorded Confirmed Type aspirin 81 mg tablet,delayed 81 mg PO DAILY 06/11/18 08/04/22 History release (Lyly Low Dose Aspirin) cholecalciferol (vitamin D3) 25 1,000 unit PO DAILY 06/11/18 08/04/22 History mcg (1,000 unit) tablet docusate sodium 100 mg capsule 100 mg PO BID 06/11/18 08/04/22 History furosemide 20 mg tablet 20 mg PO DAILYBB 06/11/18 08/04/22 History metoprolol succinate 25 mg 12.5 mg PO DAILY 06/11/18 08/04/22 History tablet,extended release 24 hr acetaminophen 500 mg tablet 500 mg PO Q4 PRN Pain 07/29/18 08/04/22 History (Acetaminophen Extra Strength) ferrous sulfate 325 mg (65 mg 325 mg PO TID 07/29/18 08/04/22 History iron) tablet aluminum-mag hydroxide-simethicone 10 - 20 ml PO QID PRN 09/27/19 08/04/22 History 400 mg-400 mg-40 mg/5 mL oral susp HEARTBURN/INDIGESTION/GAS (Antacid-Simethicone) dextromethorphan-guaifenesin 30 1 tab PO Q12H PRN Congestion 09/27/19 08/04/22 History mg-600 mg tablet extended saflgde38 hr (Mucinex DM) dimethicone-zinc oxide topical 1 applic topical DAILY PRN Skin 09/27/19 08/04/22 History cream (Rosemarie Protect Irritation (dimethicone-zinc oxide) topical cream) fexofenadine 180 mg tablet 180 mg PO DAILY 09/27/19 08/04/22 History hydrocortisone 1 % topical cream 1 applic topical DIRECTED PRN 09/27/19 08/04/22 History Rash oxybutynin chloride 5 mg tablet 5 mg PO DAILY 09/27/19 08/04/22 History sennosides 8.6 mg tablet 8.6 mg PO DAILY PRN Constipation 09/27/19 08/04/22 History atorvastatin 40 mg tablet 40 mg PO DAILY #30 tabs 10/01/19 08/04/22 Rx nitroglycerin 0.4 mg sublingual 0.4 mg sublingual UD PRN chest 10/01/19 08/04/22 Rx tablet (Nitrostat) pain #25 tabs isosorbide mononitrate 30 mg 30 mg PO QAM #30 tabs 10/27/19 08/04/22 Rx tablet,extended release 24 hr amoxicillin 500 mg capsule 2,000 mg PO DAILY PRN 1 hour prior 08/04/22 08/04/22 History to dental work docosanol 10 % topical cream 1 applic topical UD PRN Cold Sores 08/04/22 08/04/22 History (Abreva) lisinopril 5 mg tablet 5 mg PO DAILY 08/04/22 08/04/22 History loperamide 2 mg tablet 2 mg PO UD PRN Diarrhea 08/04/22 08/04/22 History (Anti-Diarrheal (loperamide)) nystatin 100,000 unit/gram topical 1 applic topical BID PRN fungus 08/04/22 08/04/22 History cream omeprazole 20 mg capsule,delayed 20 mg PO DAILY 08/04/22 08/04/22 History release peg 400-propylene glycol (PF) 0.4 1 drp OPB BID 08/04/22 08/04/22 History %-0.3 % eye drops in a dropperette (Systane (PF)) psyllium seed (sugar) oral powder 1 tbsp PO DAILY 08/04/22 08/04/22 History (Metamucil [place] oral powder) sertraline 50 mg tablet 50 mg PO QAM 08/04/22 08/04/22 History trolamine salicylate 10 % topical 1 applic topical QID PRN Pain 08/04/22 History cream (Aspercreme) Past Med/Surg History Medical History (Updated 08/04/22 @ 08:28 by Dante Ruiz MD) Aortic valve stenosis Cervical cancer 1997--sx Chronic diastolic heart failure Chronic kidney disease, stage 3 (moderate) Diverticular disease Dyslipidemia Gout Gout History of colon polyps History of esophageal dilatation History of falling Hypertension NSTEMI (non-ST elevated myocardial infarction) 09/2019 Osteoarthritis Polymyalgia rheumatica Schatzki's ring Status post closed fracture of right femur Surgical History H/O aortic valve replacement 09/2007 @ [facility] [place] H/O cataract extraction H/O total hysterectomy History of breast biopsy History of cardiac cath 08/20/2007 History of cholecystectomy History of colonoscopy History of esophagogastroduodenoscopy (EGD) History of vein stripping x2 Family History Mother Rectal cancer Social History Smoking Status: Unknown if ever smoked Tobacco Type: Cigarettes Second Hand Exposure: No; Hx Alcohol Use: No Hx Substance Use: No Preferred Language: Uzbek Communication 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: 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 Lasting Required: No Beliefs That Will Affect Care: None Current Living Situation: Personal Care Facility Current Living Situation Comment: [facility] current occupational status: retired Other Information That Helps Us Care for You: No Feels Safe at Home: Yes Safety Concerns: Feels Safe At This Time Assistive Devices: Glasses and Walker Review of Systems Review of Systems: Could not be reliably obtained secondary to disorientation Physical Exam Physical Exam: GENERAL: Disoriented, incessant eye blinking, no respiratory distress SKIN: Pallor, warm HEENT: Pale palpebral conjunctivae, no ptosis, dry buccal mucosa NECK : Supple, no tenderness CHEST : CTA, no tenderness HEART : RRR, no obvious murmurs ABDOMEN: Some distention, nontender EXTREMITIES : No LE swelling/tenderness, no other conspicuous deformities noted NEUROLOGIC : Disoriented, no facial asymmetry, gait and stance not assessed Results & Data Results & Data ([facility] [place]) Vital Signs (Past 12 Hours) Vital Signs Temp Pulse Pulse Resp BP BP Pulse Ox 08/04/22 04:00 76 16 211/98 H 97 08/04/22 03:30 88 21 96 08/04/22 03:00 76 16 98 08/04/22 02:33 74 19 08/04/22 02:20 70 23 96 08/04/22 02:10 68 17 96 08/04/22 02:09 67 18 183/91 H 97 08/04/22 02:00 66 22 08/04/22 01:50 79 20 97 08/04/22 01:40 78 18 98 08/04/22 01:33 86 21 230/125 H 97 08/04/22 01:39 36.8 C 68 18 183/91 H 97 08/04/22 01:39 66 16 96 08/04/22 01:31 97 08/04/22 01:15 36.8 C 79 19 230/125 H 98 08/04/22 01:31 36.7 C 88 24 230/125 H 97 O2 Del Method 08/04/22 04:00 08/04/22 03:30 08/04/22 03:00 08/04/22 02:33 08/04/22 02:20 08/04/22 02:10 08/04/22 02:09 08/04/22 02:00 08/04/22 01:50 08/04/22 01:40 08/04/22 01:33 08/04/22 01:39 Room Air 08/04/22 01:39 Room Air 08/04/22 01:31 Room Air 08/04/22 01:15 Room Air 08/04/22 01:31 Room Air Laboratory Results Laboratory Results WBC 10.21 K/ul (4.8-10.8) 08/04/22 02:10 RBC 3.90 M/uL (3.93-5.22) L 08/04/22 02:10 Hgb 12.7 g/dl (12.0-16.0) 08/04/22 02:10 Hct 36.8 % (34.1-44.9) 08/04/22 02:10 MCV 94.4 fL (80.0-100.0) 08/04/22 02:10 MCH 32.6 pg (25.0-34.0) 08/04/22 02:10 MCHC 34.5 g/dL (32.0-36.0) 08/04/22 02:10 RDW Std Deviation 45.3 fL (36.4-46.3) 08/04/22 02:10 RDW Coeff of Jimmie 13.1 % (11.5-14.5) 08/04/22 02:10 Plt Count 220 K/uL (130-400) 08/04/22 02:10 MPV 10.2 fL (9.4-12.3) 08/04/22 02:10 Immature Gran % (Auto) 0.3 % 08/04/22 02:10 Neut % (Auto) 80.8 % 08/04/22 02:10 Lymph % (Auto) 9.7 % 08/04/22 02:10 Reynolds % (Auto) 7.7 % 08/04/22 02:10 Eos % (Auto) 1.2 % 08/04/22 02:10 Baso % (Auto) 0.3 % 08/04/22 02:10 Neut # (Auto) 8.25 K/uL (1.4-6.5) H 08/04/22 02:10 Lymph # (Auto) 0.99 K/uL (1.2-3.4) L 08/04/22 02:10 Reynolds # (Auto) 0.79 K/uL (0.24-0.82) 08/04/22 02:10 Eos # (Auto) 0.12 K/uL (0-0.50) 08/04/22 02:10 Baso # (Auto) 0.03 K/uL (0-0.2) 08/04/22 02:10 Immature Gran # (Auto) 0.03 K/uL (0.00-0.02) H 08/04/22 02:10 Sodium 133 mmol/L (136-145) L 08/04/22 02:10 Potassium TNP 08/04/22 02:10 Chloride 99 mmol/L (98-107) 08/04/22 02:10 Carbon Dioxide 26 mmol/L (21-32) 08/04/22 02:10 Anion Gap 8 (3-11) 08/04/22 02:10 BUN 26 mg/dl (6-23) H 08/04/22 02:10 Creatinine 0.97 mg/dl (0.6-1.2) 08/04/22 02:10 Est Cr Clr Drug Dosing 42.0 ml/min 08/04/22 02:10 Est GFR ( Amer) 61.3 ml/min 08/04/22 02:10 Est GFR (Non-Af Amer) 52.9 ml/min 08/04/22 02:10 BUN/Creatinine Ratio 26.8 (10-20) H 08/04/22 02:10 Glucose 126 mg/dl (70-99(Fasting)) H 08/04/22 02:10 Lactate 1.0 mmol/L (0.4-2.0) 08/04/22 02:10 Calcium 9.7 mg/dl (8.5-10.1) 08/04/22 02:10 Magnesium 1.9 mg/dl (1.7-2.4) 08/04/22 02:10 Total Bilirubin 1.7 mg/dl (0.2-1.0) H 08/04/22 02:10 Direct Bilirubin TNP 08/04/22 02:10 AST TNP 08/04/22 02:10 ALT 15 U/L (7-52) 08/04/22 02:10 Alkaline Phosphatase 76 U/L (34-104) 08/04/22 02:10 Troponin I High Sens 130.1 pg/ml (0-14) H* 08/04/22 02:10 Total Protein 7.0 gm/dl (6.0-8.3) 08/04/22 02:10 Albumin 4.2 gm/dl (3.4-5.0) 08/04/22 02:10 Procalcitonin < 0.05 ng/ml (0-0.5) 08/04/22 02:10 Urine Color Yellow 08/04/22 02:55 Urine Appearance Clear (Clear) 08/04/22 02:55 Urine pH 7.5 (4.5-7.5) 08/04/22 02:55 Ur Specific [place] 1.013 (1.000-1.030) 08/04/22 02:55 Urine Protein 3+ (Negative) H 08/04/22 02:55 Urine Glucose (UA) Negative (Negative) 08/04/22 02:55 Urine Ketones Negative (Negative) 08/04/22 02:55 Urine Blood Negative (Negative) 08/04/22 02:55 Urine Nitrite Negative (Negative) 08/04/22 02:55 Urine Bilirubin Negative (Negative) 08/04/22 02:55 Urine Urobilinogen Negative (Negative) 08/04/22 02:55 Ur Leukocyte Esterase Negative (Negative) 08/04/22 02:55 Urine WBC (Auto) 1-5 /hpf (0-5) 08/04/22 02:55 Urine RBC (Auto) 0-4 /hpf (0-4) 08/04/22 02:55 U Hyaline Cast (Auto) 0 /lpf (0-5) 08/04/22 02:55 U Epithel Cells (Auto) 10-20 /lpf (0-5) H 08/04/22 02:55 Urine Bacteria (Auto) Negative (Negative) 08/04/22 02:[address] head initial read: Involutional changes. No acute intracranial abnormality. No hemorrhage. No visible infarct or mass. Osseous structures are intact CT abdomen pelvis initial read Normal liver. Normal spleen. Atrophic pancreas. No acute pancreatic abnormalities. Prior cholecystectomy. Mildlydilated biliarytree most likelypostcholecystectomyfinding. No acute renal abnormalityor urinarytract obstruction. No bowel obstruction or inflammation. There is image degradation due to motion artifact and therefore the appendix is not distinctlyvisualized. No free intraperitoneal air or free fluid. Small bilateral pleural effusions left greater than right. Old L3 compression fracture present on scan of May 13, 2017. Old pubic ramus fractures. Open reduction internal fixation proximal femur Chest x-ray as per my interpretation cardiomegaly, L pleural effusion EKG as per my interpretation :Rate 90, LAD, LAFB, incomplete RBBB, LVH, T wave abnormalities inferior leads
[2022-08-04 04:32] LABS: Influenza A virus by PCR Negative (Neg); Influenza B virus by PCR Negative (Neg); RSV by PCR Negative (Neg); SARS CoV2 RNA(COVID-19) Ceph NEGATIVE (Negative)
[2022-08-04 04:40] LABS: Bilirubin Direct 0.2 mg/dl (0-0.2); Potassium 3.4 mmol/L (3.5-5.1)
[2022-08-04] MEDS ORDERED: hydrALAZINE HCL 20 MG/ML VIAL IV STA (04:40)
[2022-08-04 04:46] LABS: Troponin I High Sensitivity 114.5 pg/ml (0-14)
[2022-08-04] MEDS ORDERED: PROMETHAZINE 6.25 MG/50.25 ML BAG IV STA (04:52)
[2022-08-04] MEDS ORDERED: lisinopril 5 MG TAB PO STA (05:04)
[2022-08-04] MEDS ORDERED: NSS + 20MEQ KCL 20 MEQ/1,000 ML BAG IV STA (05:05)
[2022-08-04] MEDS ORDERED: OPTIRAY 350 100ml IV ONE (05:44)
[2022-08-04] MEDS ORDERED: NITROGLYCERIN SL 0.4 MG/TAB TAB SL PRN (06:26)
[2022-08-04] MEDS ORDERED: ACETAMINOPHEN 500 MG TAB PO PRN (06:26)
[2022-08-04] MEDS ORDERED: PROMETHAZINE HCL 6.25 MG in SODIUM CHLORIDE 0.9% 50 ML IV PRN (06:26)
[2022-08-04] MEDS ORDERED: SENNA 8.6 MG TAB PO PRN (06:26)
--- NOTE | 2022-08-04 06:38 | CT Scan Report ---
CT OF THE HEAD WITHOUT CONTRAST CLINICAL HISTORY: Altered mental status. COMPARISON STUDY: Head CT January 26, 2012. CT DOSE: 614.27 mGy.cm TECHNIQUE: Helical axial images of the head were obtained without IV contrast. Automated exposure con trol was utilized for the study. A dose lowering technique was utilized adhering to the principles o f ALARA. FINDINGS: No acute intracranial hemorrhage, midline shift or mass effect is present. And a 7 mm lesio n within the prepontine cistern is unchanged. This favors a meningioma. The ventricular system is sta ble. The basal cisterns are patent. White matter hypodensity suggests small vessel disease. No extra- axial collections are present. There are no findings to suggest acute dural sinus thrombosis or acute territorial infarct. No significant calvarial abnormalities are present. Visualized portions of the sinuses and mastoid air cells are clear. IMPRESSION: No acute intracranial findings. ACT 112: Negative or not required by law. Electronically signed by: Conrado Skaggs M.D. 08/04/2022 6:35 AM
--- NOTE | 2022-08-04 06:46 | CT Scan Report ---
CT OF THE ABDOMEN AND PELVIS WITH CONTRAST CLINICAL HISTORY: Abdominal pain. COMPARISON STUDY: CT of the abdomen and pelvis May 13, 2017. TECHNIQUE: Following IV administration of 84 mL of Optiray, axial images of the abdomen and pelvis we re obtained from the lung bases to the proximal femurs. Images were reviewed in the axial, sagittal, and coronal planes. IV contrast was administered without complication. Automated exposure control wa s utilized for the study. A dose lowering technique was utilized adhering to the principles of ALARA . CT DOSE: 460.21 mGy.cm FINDINGS: Small left and trace right pleural effusions are noted. There are median sternotomy wires a nd prosthetic aortic valve. There is mild dilatation of the ascending aorta. No pneumatosis, free air or portal venous gas is present. Mild dilatation of the common bile duct is likely related to cholec ystectomy. There are no hepatic lesions. Spleen, adrenal glands, right kidney and pancreas are unrema rkable. A 1.4 cm lesion within the midpole of the left kidney on axial image 165 of 441 measures abov e water attenuation. Additional left renal lesion favors a cyst but is difficult to assess given smal l size. There is no hydronephrosis. No ascites. There is no evidence for a bowel obstruction. The cec um was within the right upper quadrant. The cecum is mildly distended but there is no evidence for a volvulus. There is no lymphadenopathy. Abdominal aorta is ectatic. There is extensive plaque. Old lef t pubic ring fractures are present. Old left sacral ala fracture is present. Right femoral internal f ixation is noted. Old L3 and S3 compression fractures are noted. IMPRESSION: 1. No acute process within the abdomen or pelvis. 2. 1.4 cm left mid pole renal lesion. This could reflect a small solid renal lesion or a complex cyst . Nonemergent renal protocol CT could be obtained for further evaluation. 3. Small left and trace right pleural effusions. ACT 112: Negative or not required by law. Electronically signed by: Conrado Skaggs M.D. 08/04/2022 6:43 AM
[2022-08-04] MEDS ORDERED: POTASSIUM CHLORIDE 20 MEQ/15 ML UDC PO ONE (08:01)
[2022-08-04 08:16] LABS: Partial Thromboplastin Ratio 0.9; Partial Thromboplastin Time 25.3 Seconds (21.0-31.0)
[2022-08-04 08:27] LABS: Estimated Average Glucose 117 mg/dl; Hemoglobin A1C 5.7 % (4.5-5.6)
[2022-08-04] MEDS: ENOXAPARIN INJ 30 MG/0.3 ML SYR SQ SCH (08:41)
[2022-08-04] MEDS: ASPIRIN 81 MG ECTAB PO SCH (08:41)
[2022-08-04] MEDS: FEXOFENADINE HCL 180 MG TAB PO SCH (08:41)
[2022-08-04] MEDS: ISOSORBIDE MONO EXTENDED REL 30 MG TABCR PO SCH (08:41)
[2022-08-04] MEDS: SERTRALINE HCL 50 MG TABLET PO SCH (08:42)
[2022-08-04] MEDS: DOCUSATE SODIUM 100 MG CAP PO SCH ×2 (08:42→19:45)
[2022-08-04] MEDS: PANTOprazole 40 MG TAB PO SCH (08:42)
[2022-08-04] MEDS: FERROUS SULFATE 325 MG TAB PO SCH ×3 (08:42→19:46)
[2022-08-04] MEDS: ATORVASTATIN 40 MG TAB PO SCH (08:42)
[2022-08-04] MEDS: OXYBUTYNIN CHLORIDE 5 MG TAB PO SCH (08:42)
[2022-08-04] MEDS: PSYLLIUM or GUAR GUM FIBER POWDER PACKET PO SCH (08:57)
[2022-08-04] MEDS ORDERED: METOPROLOL SUCC 25MG EXT REL TAB PO SCH (09:00)
[2022-08-04] MEDS ORDERED: PNEUMOCOCCAL Polysaccharide Vaccine 25mcg/0.5mL vial/Syr IM ONE (10:00)
[2022-08-04] MEDS ORDERED: Flu Vaccine-High Dose (Fluzone-HD) PF 65+ 0.7mL SYR IM ONE (10:00)
--- NOTE | 2022-08-04 10:03 | XRay Report ---
SINGLE VIEW CHEST CLINICAL HISTORY: Sepsis. FINDINGS: 2 AP, portable, upright chest radiographs are compared to study dated 10/23/2019 and correlat ed with chest CT dated 09/28/2019. The patient is status post midline sternotomy and cardiac valve surg pantera. The heart is enlarged noting atherosclerotic calcification of the thoracic aorta. The pulmonary vasculature is noncongested. Enlargement of the central pulmonary arteries suggests pulmonary artery hypertension. Emphysema and chronic interstitial thickening is similar to previous. Foci of parenchym al scarring are seen throughout both lungs. There is a small left pleural effusion with left basilar consolidation. No pneumothorax is seen. The skeletal structures are osteopenic. The bony thorax is gr ossly intact. Arthritic change is noted in the shoulders. IMPRESSION: 1. Cardiomegaly and emphysema without radiographic evidence of congestive failure. 2. Small left pleural effusion with left basilar consolidation ACT 112: Negative or not required by law. Electronically signed by: Don Fallon M.D. 08/04/2022 10:01 AM
--- NOTE | 2022-08-04 14:04 | Electrocardiogram Report ---
Test Reason : Blood Pressure : / mmHG Vent. Rate : 088 BPM Atrial Rate : 088 BPM P-R Int : 146 ms QRS Dur : 086 ms QT Int : 396 ms P-R-T Axes : 043 -24 003 degrees QTc Int : 479 ms Sinus rhythm with Premature atrial complexes Left ventricular hypertrophy with repolarization abnormality Inferior infarct (cited on or before 24-OCT-2019) Abnormal ECG When compared with ECG of 24-OCT-2019 17:10, Premature atrial complexes are now Present Questionable change in QRS axis T wave inversion now evident in Inferior leads T wave inversion less evident in Anterior leads Confirmed by Yoshi Sandoval ([id number]) on 08/04/2022 2:03:47 PM Referred By: [facility] Confirmed By:Yoshi Sandoval
[2022-08-04] MEDS: hydrALAZINE 10 MG TAB PO PRN (16:56)
--- NOTE | 2022-08-04 17:07 | Hospitalist Progress Note ---
Date of Service August 04, 2022 Assessment & Plan (1) Encephalopathy: Plan: Acute metabolic encephalopathy DD: Likely secondary to hypertensive urgency, ? due to meds --CT head:No acute intracranial findings. Mental status seem to be back to baseline Sertraline dose decreased to 25 mg daily Reorient frequently to minimize delirium Hypertensive Urgency Continue metoprolol, Imdur Lisinopril dose increased to 10 mg daily Hydralazine as needed Will adjust medications as needed Troponin elevation Likely demand ischemia secondary to hypertensive urgency Patient denies chest pain ECHO showed no wall motion abnormality Prediabetes HbA1c 5.7 Hyponatremia Hypokalemia Replete electrolytes as needed Monitor Left renal lesion Incidental finding on CT --CT ABD:No acute process within the abdomen or pelvis. 1.4 cm left mid pole renal lesion. This could reflect a small solid renal lesion or a complex cyst. Nonemergent renal protocol CT could be obtained for further evaluation. Small left and trace right pleural effusions. -- Will need further work-up as outpatient if patient pursues to investigate CAD S/P stent Aortic stenosis S/P bioprosthetic AVR Hyperlipidemia Continue aspirin, statin, isosorbide, metoprolol, lisinopril Overactive bladder On oxybutynin Bladder scan as needed to monitor for any retention PMR Cervical cancer S/P surgery Chronic anemia Mood disorder Continue Zoloft at reduced dose Monitor CBC DVT Px: Lovenox SQ Code Status DNR/DNI Admission and Anticipated Discharge Date Admission Date: August 04, 2022 Subjective Patient is seen and examined at bedside Oriented to person and place during my encounter this morning States feeling better today Blood pressure elevated intermittently Denies any chest pain, shortness of breath, dizziness, nausea, abdominal pain, headache Offers no other complaints Review of Systems Review of Systems: All systems reviewed & are unremarkable except as noted in Subjective Physical Exam Physical Exam: Physical Exam: Vitals signs as noted above General Appearance:Moderately built and nourished, no apparent distress, Elderly Head: normocephalic, Atraumatic Eyes: normal inspection, EOMI Neck: supple, Trachea midline Respiratory/Chest: Decreased breath sounds, CTA, No accessory muscle use Cardiovascular: S1, S2, + murmur Abdomen/GI:Soft, Non tender, Bowel sounds present Extremities/Musculoskeletal:normal inspection, Trace edema Neurologic/Psych:AAOX2, grossly no focal neurological deficits , slow to respond Skin: normal color, warm Results & Data Results & Data ([facility]) Vital Signs (Past 12 Hours) Vital Signs Temp Pulse Pulse Resp BP Pulse Ox O2 Del Method 08/04/22 15:53 36.7 C 76 18 199/90 H 97 Room Air 08/04/22 15:44 75 08/04/22 10:55 37.0 C 81 17 160/80 H 94 Room Air 08/04/22 08:00 Room Air 08/04/22 06:26 96 H 169/95 H 08/04/22 07:13 36.9 C 83 17 187/86 H 97 Room Air 08/04/22 06:30 Room Air 08/04/22 06:28 36.8 C 84 18 180/98 H 96 Room Air Laboratory Results Short CBC 08/04/22 Range/Units 02:10 WBC 10.21 (4.8-10.8) K/ul Hgb 12.7 (12.0-16.0) g/dl Hct 36.8 (34.1-44.9) % Plt Count 220 (130-400) K/uL BMP 08/04/22 08/04/22 02:10 03:44 Sodium 133 L Potassium TNP 3.4 L Chloride 99 Carbon Dioxide 26 BUN 26 H Creatinine 0.97 Glucose 126 H Calcium 9.7 Liver Function 08/04/22 08/04/22 Range/Units 02:10 03:44 Total Bilirubin 1.7 H (0.2-1.0) mg/dl Direct Bilirubin TNP 0.2 AST TNP 21 ALT 15 (7-52) U/L Alkaline Phosphatase 76 (34-104) U/L Albumin 4.2 (3.4-5.0) gm/dl Urine 08/04/22 Range/Units 02:55 Urine Color Yellow Urine Appearance Clear (Clear) Urine pH 7.5 (4.5-7.5) Ur Specific [place] 1.013 (1.000-1.030) Urine Protein 3+ H (Negative) Urine Glucose (UA) Negative (Negative)
[2022-08-05] MEDS: hydrALAZINE 10 MG TAB PO PRN (00:15)
[2022-08-05] MEDS ORDERED: lisinopril 20 MG TAB PO SCH (01:15)
[2022-08-05] MEDS ORDERED: METOPROLOL SUCC 25MG EXT REL TAB PO SCH (02:30)
[2022-08-05] MEDS ORDERED: METOPROLOL SUCC 25MG EXT REL TAB PO STA (04:25)
[2022-08-05] MEDS ORDERED: hydrALAZINE HCL 20 MG/ML VIAL IV STA (04:26)
[2022-08-05 06:49] LABS: Basophils # (auto) 0.08 K/uL (0-0.2); Basophils % (auto) 0.7 %; Eosinophils % (auto) 2.6 %; Hematocrit (blood only) 36.2 % (34.1-44.9); Hemoglobin 12.3 g/dl (12.0-16.0); Immature Granulocytes # (auto) 0.06 K/uL (0.00-0.02); Immature Granulocytes % (auto) 0.5 %; Lymphocytes # (auto) 1.14 K/uL (1.2-3.4); Mean Corpuscular Hemoglobin 32.7 pg (25.0-34.0); Mean Corpuscular Volume 96.3 fL (80.0-100.0); Mean Platelet Volume 9.9 fL (9.4-12.3); Monocytes # (auto) 0.84 K/uL (0.24-0.82); Monocytes % (auto) 7.3 %; Neutrophils # (auto) 9.02 K/uL (1.4-6.5); Neutrophils % (auto) 78.9 %; Platelet Count 235 K/uL (130-400); RDW Coefficient of Variation 13.1 % (11.5-14.5); RDW Standard Deviation 46.8 fL (36.4-46.3); Red Blood Count 3.76 M/uL (3.93-5.22); White Blood Count 11.44 K/ul (4.8-10.8)
[2022-08-05 07:21] LABS: BUN Creatinine Ratio 28.2 (10-20); Creatinine Clr Calc Pharmacy 47.9 ml/min; Est GFR (African American) 71.9 ml/min; Magnesium 1.8 mg/dl (1.7-2.4); Potassium 3.6 mmol/L (3.5-5.1)
[2022-08-05] MEDS: ATORVASTATIN 40 MG TAB PO SCH (08:15)
[2022-08-05] MEDS: PANTOprazole 40 MG TAB PO SCH (08:15)
[2022-08-05] MEDS: PSYLLIUM or GUAR GUM FIBER POWDER PACKET PO SCH (08:15)
[2022-08-05] MEDS: ASPIRIN 81 MG ECTAB PO SCH (08:15)
[2022-08-05] MEDS: OXYBUTYNIN CHLORIDE 5 MG TAB PO SCH (08:15)
[2022-08-05] MEDS: SERTRALINE HCL 50 MG TABLET PO SCH (08:16)
[2022-08-05] MEDS: FERROUS SULFATE 325 MG TAB PO SCH ×3 (08:16→20:01)
[2022-08-05] MEDS: FEXOFENADINE HCL 180 MG TAB PO SCH (08:16)
[2022-08-05] MEDS: ISOSORBIDE MONO EXTENDED REL 30 MG TABCR PO SCH (08:16)
[2022-08-05] MEDS: DOCUSATE SODIUM 100 MG CAP PO SCH ×2 (08:16→20:01)
[2022-08-05] MEDS: ENOXAPARIN INJ 30 MG/0.3 ML SYR SQ SCH (08:17)
[2022-08-05] MEDS ORDERED: lisinopril 10 MG TAB PO SCH (09:00)
--- NOTE | 2022-08-05 15:06 | Hospitalist Progress Note ---
Date of Service August 05, 2022 Assessment & Plan (1) Encephalopathy: Plan: Acute metabolic encephalopathy DD: Likely secondary to hypertensive urgency, ? due to meds --CT head:No acute intracranial findings. Mental status seem to be back to baseline Sertraline dose decreased to 25 mg daily Reorient frequently to minimize delirium Hypertensive Urgency Continue metoprolol, Imdur Lisinopril dose increased to 20 mg daily Metoprolol dose increased to 50 mg daily Hydralazine as needed Will adjust medications as needed Blood pressure better today Troponin elevation Likely demand ischemia secondary to hypertensive urgency Patient denies chest pain ECHO showed no wall motion abnormality Prediabetes HbA1c 5.7 Hyponatremia Hypokalemia Replete electrolytes as needed Monitor Left renal lesion Incidental finding on CT --CT ABD:No acute process within the abdomen or pelvis. 1.4 cm left mid pole renal lesion. This could reflect a small solid renal lesion or a complex cyst. Nonemergent renal protocol CT could be obtained for further evaluation. Small left and trace right pleural effusions. -- Will need further work-up as outpatient if patient pursues to investigate in the future -Discussed with patient's daughter over the phone on 08/04/22: Agrees with no further investigations given her age. Patient also agrees to defer further tests CAD S/P stent Aortic stenosis S/P bioprosthetic AVR Hyperlipidemia Continue aspirin, statin, isosorbide, metoprolol, lisinopril Overactive bladder On oxybutynin Bladder scan as needed to monitor for any retention PMR Cervical cancer S/P surgery Chronic anemia Mood disorder Continue Zoloft at reduced dose Monitor CBC DVT Px: Lovenox SQ Code Status DNR/DNI Disposition PT OT prior to discharge--pending Admission and Anticipated Discharge Date Admission Date: August 04, 2022 Subjective Patient is seen and examined at bedside BP better today Denies any chest pain, shortness of breath, dizziness, nausea, abdominal pain, headache No new complaints Review of Systems Review of Systems: All systems reviewed & are unremarkable except as noted in Subjective Physical Exam Physical Exam: Physical Exam: Vitals signs as noted above General Appearance:Moderately built and nourished, no apparent distress, Elderly Head: normocephalic, Atraumatic Eyes: normal inspection, EOMI Neck: supple, Trachea midline Respiratory/Chest: Decreased breath sounds, CTA, No accessory muscle use Cardiovascular: S1, S2, + murmur Abdomen/GI:Soft, Non tender, Bowel sounds present Extremities/Musculoskeletal:normal inspection, Trace edema Neurologic/Psych:AAOX2, grossly no focal neurological deficits , slow to respond Skin: normal color, warm Results & Data Results & Data ([facility]) Vital Signs (Past 12 Hours) Vital Signs Temp Pulse Pulse Resp BP Pulse Ox O2 Del Method 08/05/22 14:55 65 08/05/22 12:28 36.6 C 72 16 158/76 H 96 Room Air 08/05/22 08:27 36.6 C 74 16 175/82 H 96 Room Air 08/05/22 07:31 73 08/05/22 05:04 162/78 H 08/05/22 04:23 221/107 H Laboratory Results Short CBC 08/05/22 Range/Units 06:37 WBC 11.44 H (4.8-10.8) K/ul Hgb 12.3 (12.0-16.0) g/dl Hct 36.2 (34.1-44.9) % Plt Count 235 (130-400) K/uL BMP 08/05/22 06:37 Sodium 135 L Potassium 3.6 Chloride 102 Carbon Dioxide 25 BUN 24 H Creatinine 0.85 Glucose 116 H Calcium 9.0
[2022-08-06] MEDS: hydrALAZINE 10 MG TAB PO PRN ×2 (00:07→08:47)
[2022-08-06] MEDS ORDERED: lisinopril 10 MG TAB PO SCH (00:15)
[2022-08-06 06:15] LABS: Hematocrit (blood only) 31.6 % (34.1-44.9); Hemoglobin 10.8 g/dl (12.0-16.0); Mean Corpuscular Hemoglobin 32.8 pg (25.0-34.0); Mean Corpuscular Hgb Conc 34.2 g/dL (32.0-36.0); Mean Platelet Volume 10.1 fL (9.4-12.3); Platelet Count 188 K/uL (130-400); RDW Coefficient of Variation 13.2 % (11.5-14.5); RDW Standard Deviation 47.1 fL (36.4-46.3); Red Blood Count 3.29 M/uL (3.93-5.22); White Blood Count 7.99 K/ul (4.8-10.8)
[2022-08-06 06:41] LABS: BUN Creatinine Ratio 31.3 (10-20); Calcium 8.5 mg/dl (8.5-10.1); Creatinine Clr Calc Pharmacy 42.4 ml/min; Est GFR (African American) 62.1 ml/min; Est GFR (Non-African American) 53.6 ml/min; Potassium 3.7 mmol/L (3.5-5.1)
[2022-08-06] MEDS: SERTRALINE HCL 50 MG TABLET PO SCH (08:47)
[2022-08-06] MEDS: ISOSORBIDE MONO EXTENDED REL 30 MG TABCR PO SCH (08:47)
[2022-08-06] MEDS: PSYLLIUM or GUAR GUM FIBER POWDER PACKET PO SCH (08:47)
[2022-08-06] MEDS: DOCUSATE SODIUM 100 MG CAP PO SCH (08:47)
[2022-08-06] MEDS: OXYBUTYNIN CHLORIDE 5 MG TAB PO SCH (08:47)
[2022-08-06] MEDS: ASPIRIN 81 MG ECTAB PO SCH (08:47)
[2022-08-06] MEDS: ATORVASTATIN 40 MG TAB PO SCH (08:47)
[2022-08-06] MEDS: FERROUS SULFATE 325 MG TAB PO SCH (08:47)
[2022-08-06] MEDS: PANTOprazole 40 MG TAB PO SCH (08:48)
[2022-08-06] MEDS: ENOXAPARIN INJ 30 MG/0.3 ML SYR SQ SCH (08:48)
[2022-08-06] MEDS: FEXOFENADINE HCL 180 MG TAB PO SCH (08:48)
[2022-08-06] MEDS ORDERED: METOPROLOL SUCC 50MG EXT REL TAB PO SCH (09:00)
--- NOTE | 2022-08-06 11:38 | Hospitalist Progress Note ---
Date of Service August 06, 2022 Assessment & Plan (1) Encephalopathy: Plan: Acute metabolic encephalopathy DD: Likely secondary to hypertensive urgency, ? due to meds --CT head:No acute intracranial findings. Mental status seem to be back to baseline Sertraline dose decreased to 25 mg daily Reorient frequently to minimize delirium Hypertensive Urgency Continue Imdur Lisinopril dose increased to 20 mg daily Metoprolol dose increased to 50 mg daily Hydralazine as needed Blood pressure much improved Troponin elevation Likely demand ischemia secondary to hypertensive urgency Patient denies chest pain ECHO showed no wall motion abnormality Prediabetes HbA1c 5.7 Hyponatremia Hypokalemia Replete electrolytes as needed Monitor Left renal lesion Incidental finding on CT --CT ABD:No acute process within the abdomen or pelvis. 1.4 cm left mid pole renal lesion. This could reflect a small solid renal lesion or a complex cyst. Nonemergent renal protocol CT could be obtained for further evaluation. Small left and trace right pleural effusions. -- Will need further work-up as outpatient if patient pursues to investigate in the future -Discussed with patient's daughter over the phone on 08/04/22: Agrees with no further investigations given her age. Patient also agrees to defer further tests CAD S/P stent Aortic stenosis S/P bioprosthetic AVR Hyperlipidemia Continue aspirin, statin, isosorbide, metoprolol, lisinopril Overactive bladder On oxybutynin Bladder scan as needed to monitor for any retention PMR Cervical cancer S/P surgery Chronic anemia Mood disorder Continue Zoloft at reduced dose Monitor CBC DVT Px: Lovenox SQ Code Status DNR/DNI Disposition SNF Admission and Anticipated Discharge Date Admission Date: August 04, 2022 Subjective Patient is seen and examined at bedside Feels sleepy today No other complaints Denies any chest pain, dyspnea, dizziness, nausea, abdominal pain, headache Plan to discharge to SNF today Review of Systems Review of Systems: All systems reviewed & are unremarkable except as noted in Subjective Physical Exam Physical Exam: Physical Exam: Vitals signs as noted above General Appearance:Moderately built and nourished, no apparent distress, Elderly Head: normocephalic, Atraumatic Eyes: normal inspection, EOMI Neck: supple, Trachea midline Respiratory/Chest: Decreased breath sounds, CTA, No accessory muscle use Cardiovascular: S1, S2, + murmur Abdomen/GI:Soft, Non tender, Bowel sounds present Extremities/Musculoskeletal:normal inspection, Trace edema Neurologic/Psych:AAOX2, grossly no focal neurological deficits , slow to respond Skin: normal color, warm Results & Data Results & Data ([facility]) Vital Signs (Past 12 Hours) Vital Signs Temp Pulse Pulse Resp BP Pulse Ox O2 Del Method 08/06/22 11:27 36.7 C 62 18 102/52 L 92 Room Air 08/06/22 08:00 67 08/06/22 07:48 37.1 C 67 20 138/97 96 Room Air 08/06/22 03:23 36.8 C 72 16 161/78 H 96 Room Air 08/06/22 02:08 79 165/84 H 08/05/22 23:56 74 16 198/90 H 95 Room Air Laboratory Results Short CBC 08/06/22 Range/Units 06:05 WBC 7.99 (4.8-10.8) K/ul Hgb 10.8 L (12.0-16.0) g/dl Hct 31.6 L (34.1-44.9) % Plt Count 188 (130-400) K/uL BMP 08/06/22 06:05 Sodium 136 Potassium 3.7 Chloride 105 Carbon Dioxide 26 BUN 30 H Creatinine 0.96 Glucose 97 Calcium 8.5
--- NOTE | 2022-08-06 11:46 | Discharge Summary ---
Date of Service August 06, 2022 Admission HPI Per Admitting Provider History obtained from patient, family, and records. History from patient secondary to confused state. Medical history significant for CAD status post stent, aortic stenosis status post bioprosthetic AVR, hypertension, hyperlipidemia, PMR, cervical cancer status post surgery, chronic anemia (baseline hemoglobin 9-10), mood disorder. Last confinement October 2019 for NSTEMI. Patient declined cardiac catheterization. Patient noted to be confused about 6 weeks ago as per daughter. Patient daughter concerned about Sertraline Rx initiated around for possible depression. Daughter verbalized concerns to personal care facility staff. She was told that medication seems to be working for patient's depression. This week, patient noted to be more confused than usual. Abdominal pain and dysuria symptoms as per personal care facility report. SBP noted to be 230s upon arrival at the ER. Blood pressure not checked at personal care facility as per staff. Patient unable to respond to questions regarding headache, chest pain, shortness of breath, abdominal pain, medication compliance. IV labetalol administered at the ER. 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 Admission Exam Per Admitting Provider GENERAL: Disoriented, incessant eye blinking, no respiratory distress SKIN: Pallor, warm HEENT: Pale palpebral conjunctivae, no ptosis, dry buccal mucosa NECK : Supple, no tenderness CHEST : CTA, no tenderness HEART : RRR, no obvious murmurs ABDOMEN: Some distention, nontender EXTREMITIES : No LE swelling/tenderness, no other conspicuous deformities noted NEUROLOGIC : Disoriented, no facial asymmetry, gait and stance not assessed Principal Diagnosis Acute metabolic encephalopathy Hypertensive urgency Hyponatremia Hypokalemia Discharge Data Allergies Allergy/AdvReac Type Severity Reaction Status Date / Time allopurinol Allergy Unknown ON Verified 08/04/22 02:12 ETHEL MED LIST Cephalosporins Allergy Unknown ON Verified 08/04/22 02:12 ETHEL MED LIST gramicidin D [From Neocidin] Allergy Unknown Redness of Verified 08/04/22 02:13 Skin neomycin [From Neocidin] Allergy Unknown Redness of Verified 08/04/22 02:13 Skin polymyxin B [From Neocidin] Allergy Unknown Redness of Verified 08/04/22 02:13 Skin Consultations 08/04/22 04:08 ED Decision to Admit Stat Procedures Performed Laboratory Results WBC 7.99 K/ul (4.8-10.8) 08/06/22 06:05 RBC 3.29 M/uL (3.93-5.22) L 08/06/22 06:05 Hgb 10.8 g/dl (12.0-16.0) L 08/06/22 06:05 Hct 31.6 % (34.1-44.9) L 08/06/22 06:05 MCV 96.0 fL (80.0-100.0) 08/06/22 06:05 MCH 32.8 pg (25.0-34.0) 08/06/22 06:05 MCHC 34.2 g/dL (32.0-36.0) 08/06/22 06:05 RDW Std Deviation 47.1 fL (36.4-46.3) H 08/06/22 06:05 RDW Coeff of Jimmie 13.2 % (11.5-14.5) 08/06/22 06:05 Plt Count 188 K/uL (130-400) 08/06/22 06:05 MPV 10.1 fL (9.4-12.3) 08/06/22 06:05 Immature Gran % (Auto) 0.5 % 08/05/22 06:37 Neut % (Auto) 78.9 % 08/05/22 06:37 Lymph % (Auto) 10.0 % 08/05/22 06:37 Haralson % (Auto) 7.3 % 08/05/22 06:37 Eos % (Auto) 2.6 % 08/05/22 06:37 Baso % (Auto) 0.7 % 08/05/22 06:37 Neut # (Auto) 9.02 K/uL (1.4-6.5) H 08/05/22 06:37 Lymph # (Auto) 1.14 K/uL (1.2-3.4) L 08/05/22 06:37 Haralson # (Auto) 0.84 K/uL (0.24-0.82) H 08/05/22 06:37 Eos # (Auto) 0.30 K/uL (0-0.50) 08/05/22 06:37 Baso # (Auto) 0.08 K/uL (0-0.2) 08/05/22 06:37 Immature Gran # (Auto) 0.06 K/uL (0.00-0.02) H 08/05/22 06:37 APTT 25.3 Seconds (21.0-31.0) 08/04/22 07:15 PTT Ratio 0.9 08/04/22 07:15 Sodium 136 mmol/L (136-145) 08/06/22 06:05 Potassium 3.7 mmol/L (3.5-5.1) 08/06/22 06:05 Chloride 105 mmol/L (98-107) 08/06/22 06:05 Carbon Dioxide 26 mmol/L (21-32) 08/06/22 06:05 Anion Gap 5 (3-11) 08/06/22 06:05 BUN 30 mg/dl (6-23) H 08/06/22 06:05 Creatinine 0.96 mg/dl (0.6-1.2) 08/06/22 06:05 Est Cr Clr Drug Dosing 42.4 ml/min 08/06/22 06:05 Est GFR ( Amer) 62.1 ml/min 08/06/22 06:05 Est GFR (Non-Af Amer) 53.6 ml/min 08/06/22 06:05 BUN/Creatinine Ratio 31.3 (10-20) H 08/06/22 06:05 Glucose 97 mg/dl (70-99(Fasting)) 08/06/22 06:05 POC Glucose 131 mg/dl (70-99) H 08/04/22 02:46 Estimat Average Glucose 117 mg/dl 08/04/22 02:10 Hemoglobin A1c 5.7 % (4.5-5.6) H 08/04/22 02:10 Lactate 1.0 mmol/L (0.4-2.0) 08/04/22 02:10 Calcium 8.5 mg/dl (8.5-10.1) 08/06/22 06:05 Magnesium 1.8 mg/dl (1.7-2.4) 08/05/22 06:37 Total Bilirubin 1.7 mg/dl (0.2-1.0) H 08/04/22 02:10 Direct Bilirubin 0.2 mg/dl (0-0.2) 08/04/22 03:44 AST 21 U/L (13-39) 08/04/22 03:44 ALT 15 U/L (7-52) 08/04/22 02:10 Alkaline Phosphatase 76 U/L (34-104) 08/04/22 02:10 Ammonia 33.0 umol/L (18-72) 08/04/22 04:44 Troponin I High Sens 114.4 pg/ml (0-14) H* 08/04/22 10:22 Total Protein 7.0 gm/dl (6.0-8.3) 08/04/22 02:10 Albumin 4.2 gm/dl (3.4-5.0) 08/04/22 02:10 Lipase 18 U/L (11-82) 08/04/22 04:20 Procalcitonin < 0.05 ng/ml (0-0.5) 08/05/22 06:37 TSH 1.248 uIu/ml (0.300-4.500) 08/04/22 02:10 Urine Color Yellow 08/04/22 02:55 Urine Appearance Clear (Clear) 08/04/22 02:55 Urine pH 7.5 (4.5-7.5) 08/04/22 02:55 Ur Specific Morton 1.013 (1.000-1.030) 08/04/22 02:55 Urine Protein 3+ (Negative) H 08/04/22 02:55 Urine Glucose (UA) Negative (Negative) 08/04/22 02:55 Urine Ketones Negative (Negative) 08/04/22 02:55 Urine Blood Negative (Negative) 08/04/22 02:55 Urine Nitrite Negative (Negative) 08/04/22 02:55 Urine Bilirubin Negative (Negative) 08/04/22 02:55 Urine Urobilinogen Negative (Negative) 08/04/22 02:55 Ur Leukocyte Esterase Negative (Negative) 08/04/22 02:55 Urine WBC (Auto) 1-5 /hpf (0-5) 08/04/22 02:55 Urine RBC (Auto) 0-4 /hpf (0-4) 08/04/22 02:55 U Hyaline Cast (Auto) 0 /lpf (0-5) 08/04/22 02:55 U Epithel Cells (Auto) 10-20 /lpf (0-5) H 08/04/22 02:55 Urine Bacteria (Auto) Negative (Negative) 08/04/22 02:55 Nasal Screen MRSA (PCR) Negative (Negative) 08/04/22 06:25 SARS-CoV-2 (PCR) NEGATIVE (Negative) 08/04/22 03:45 Influenza Type A (PCR) Negative (Neg) 08/04/22 03:45 Influenza Type B (PCR) Negative (Neg) 08/04/22 03:45 RSV (RT-PCR) Negative (Neg) 08/04/22 03:45 Impressions Chest X-Ray 08/04/22 01:39 SINGLE VIEW CHEST CLINICAL HISTORY: Sepsis. FINDINGS: 2 AP, portable, upright chest radiographs are compared to study dated 10/23/2019 and correlated with chest CT dated 09/28/2019. The patient is status post midline sternotomy and cardiac valve surgery. The heart is enlarged noting atherosclerotic calcification of the thoracic aorta. The pulmonary vasculature is noncongested. Enlargement of the central pulmonary arteries suggests pulmonary artery hypertension. Emphysema and chronic interstitial thickening is similar to previous. Foci of parenchymal scarring are seen throughout both lungs. There is a small left pleural effusion with left basilar consolidation. No pneumothorax is seen. The skeletal structures are osteopenic. The bony thorax is grossly intact. Arthritic change is noted in the shoulders. IMPRESSION: 1. Cardiomegaly and emphysema without radiographic evidence of congestive failure. 2. Small left pleural effusion with left basilar consolidation ACT 112: Negative or not required by law. Electronically signed by: Don Fallon M.D. 08/04/2022 10:[address] 08/04/22 01:40 CT OF THE HEAD WITHOUT CONTRAST CLINICAL HISTORY: Altered mental status. COMPARISON STUDY: Head CT January 26, 2012. CT DOSE: 614.27 mGy.cm TECHNIQUE: Helical axial images of the head were obtained without IV contrast. Automated exposure control was utilized for the study. A dose lowering technique was utilized adhering to the principles of ALARA. FINDINGS: No acute intracranial hemorrhage, midline shift or mass effect is present. And a 7 mm lesion within the prepontine cistern is unchanged. This favors a meningioma. The ventricular system is stable. The basal cisterns are patent. White matter hypodensity suggests small vessel disease. No extra-axial collections are present. There are no findings to suggest acute dural sinus thrombosis or acute territorial infarct. No significant calvarial abnormalities are present. Visualized portions of the sinuses and mastoid air cells are clear. IMPRESSION: No acute intracranial findings. ACT 112: Negative or not required by law. Electronically signed by: Conrado Skaggs M.D. 08/04/2022 6:35 AM Abdomen/Pelvis CT 08/04/22 04:39 CT OF THE ABDOMEN AND PELVIS WITH CONTRAST CLINICAL HISTORY: Abdominal pain. COMPARISON STUDY: CT of the abdomen and pelvis May 13, 2017. TECHNIQUE: Following IV administration of 84 mL of Optiray, axial images of the abdomen and pelvis were obtained from the lung bases to the proximal femurs. Images were reviewed in the axial, sagittal, and coronal planes. IV contrast was administered without complication. Automated exposure control was utilized for the study. A dose lowering technique was utilized adhering to the principles of ALARA. CT DOSE: 460.21 mGy.cm FINDINGS: Small left and trace right pleural effusions are noted. There are median sternotomy wires and prosthetic aortic valve. There is mild dilatation of the ascending aorta. No pneumatosis, free air or portal venous gas is present. Mild dilatation of the common bile duct is likely related to cholecystectomy. There are no hepatic lesions. Spleen, adrenal glands, right kidney and pancreas are unremarkable. A 1.4 cm lesion within the midpole of the left kidney on axial image 165 of 441 measures above water attenuation. Additional left renal lesion favors a cyst but is difficult to assess given small size. There is no hydronephrosis. No ascites. There is no evidence for a bowel obstruction. The cecum was within the right upper quadrant. The cecum is mildly distended but there is no evidence for a volvulus. There is no lymphadenopathy. Abdominal aorta is ectatic. There is extensive plaque. Old left pubic ring fractures are present. Old left sacral ala fracture is present. Right femoral internal fixation is noted. Old L3 and S3 compression fractures are noted. IMPRESSION: 1. No acute process within the abdomen or pelvis. 2. 1.4 cm left mid pole renal lesion. This could reflect a small solid renal lesion or a complex cyst. Nonemergent renal protocol CT could be obtained for further evaluation. 3. Small left and trace right pleural effusions. ACT 112: Negative or not required by law. Electronically signed by: Conrado Skaggs M.D. 08/04/2022 6:43 AM Ordered Studies 08/04/22 01:40 CT head/brain wo con Stat 08/04/22 04:39 CT Abd and Pelvis [CT abd pelvis IV con only] Stat Hospital Course (1) Encephalopathy: Acute metabolic encephalopathy DD: Likely secondary to hypertensive urgency, ? due to meds --CT head:No acute intracranial findings. Mental status seem to be back to baseline Sertraline dose decreased to 25 mg daily Reorient frequently to minimize delirium Hypertensive Urgency Continue Imdur Lisinopril dose increased to 20 mg daily Metoprolol dose increased to 50 mg daily Hydralazine as needed Blood pressure much improved Troponin elevation Likely demand ischemia secondary to hypertensive urgency Patient denies chest pain ECHO showed no wall motion abnormality Prediabetes HbA1c 5.7 Hyponatremia Hypokalemia Replete electrolytes as needed Monitor Left renal lesion Incidental finding on CT --CT ABD:No acute process within the abdomen or pelvis. 1.4 cm left mid pole renal lesion. This could reflect a small solid renal lesion or a complex cyst. Nonemergent renal protocol CT could be obtained for further evaluation. Small left and trace right pleural effusions. -- Will need further work-up as outpatient if patient pursues to investigate in the future -Discussed with patient's daughter over the phone on 08/04/22: Agrees with no further investigations given her age. Patient also agrees to defer further tests CAD S/P stent Aortic stenosis S/P bioprosthetic AVR Hyperlipidemia Continue aspirin, statin, isosorbide, metoprolol, lisinopril Overactive bladder On oxybutynin Bladder scan as needed to monitor for any retention PMR Cervical cancer S/P surgery Chronic anemia Mood disorder Continue Zoloft at reduced dose Monitor CBC DVT Px: Lovenox SQ Code Status DNR/DNI Disposition SNF Total Time Total Time Spent Total Time Spent (In Minutes): 56 minutes Discharge Plan Discharge Items Patient Disposition: Transfer [facility] Reason For Visit: HTN CRISIS Discharge Diagnosis: Acute metabolic encephalopathy Hypertensive urgency Hyponatremia Hypokalemia Activity: Per Instructions section Exercise/Sports: Gradually increase as tolerated Non-emergency contact: Primary Care Provider Call non-emergency contact if: you have any medication questions, your symptoms worsen, your pain is concerning for you and you have a fever Follow-up/Referrals: [facility] [employer] [Primary Care Provider] - Diet: Heart Healthy Addtl Attending Provider Instructions: Follow-up with your primary care physician in 1 week --- Monitor your blood pressure regularly as advised. Further adjustment of blood pressure medications as per your primary care physician. Medication Changes: -- Your Metoprolol succinate is increased to 50 mg daily --Your lisinopril is increased to 20 mg daily --Your Zoloft is decreased to 25 mg daily Seek immediate medical attention if your symptoms reoccur or worsen Please take all medications as instructed on discharge list below. Please call if you have any questions or problems. You can reach a [facility] hospitalist on duty at [facility] 24 hours a day by calling [phone] Pending Studies at Discharge: No Stand-Alone Forms: My [facility] Skilled Items Patient informed of condition?: Yes DNR: Yes Discharge Level of Care: Skilled Communicable Disease: No Discharge Prognosis: Stable Lines: None Urinary Catheter: No Medications and DC Order Prescriptions: New metoprolol succinate 50 mg Tablet Extended Release 24 Hr 50 mg PO DAILY Qty: 30 0RF lisinopril 10 mg Tablet 20 mg PO DAILY Qty: 60 0RF Continued aspirin [Lyly Low Dose Aspirin] 81 mg Tablet,Delayed Release (Dr/Ec) 81 mg PO DAILY docusate sodium 100 mg Capsule 100 mg PO BID furosemide 20 mg Tablet 20 mg PO DAILYBB cholecalciferol (vitamin D3) 1,000 unit Tablet 1,000 unit PO DAILY acetaminophen [Acetaminophen Extra Strength] 500 mg Tablet 500 mg PO Q4 MDD 3 GRAMS/24 HOURS PRN (Reason: Pain) ferrous sulfate 325 mg (65 mg iron) Tablet 325 mg PO TID sennosides 8.6 mg Tablet 8.6 mg PO DAILY PRN (Reason: Constipation) fexofenadine 180 mg Tablet 180 mg PO DAILY hydrocortisone 1 % Cream 1 applic TOPICAL DIRECTED PRN (Reason: Rash) Mucinex DM 30-600 mg Tablet Extended Release 12 Hr 1 tab PO Q12H PRN (Reason: Congestion) oxybutynin chloride 5 mg Tablet 5 mg PO DAILY alum-mag hydroxide-simeth [Antacid-Simethicone] 400-400-40 mg/5 mL Suspension 10 - 20 ml PO QID PRN (Reason: HEARTBURN/INDIGESTION/GAS) Rosemarie Protect(dimethicone-zinc) Cream 1 applic TOPICAL DAILY PRN (Reason: Skin Irritation) nitroglycerin [Nitrostat] 0.4 mg Tablet, Sublingual 0.4 mg sublingual UD PRN (Reason: chest pain) Qty: 25 2RF Rx Instructions: dissolve 1 tablet under tongue as needed , may repeat x 3 doses for chest pain atorvastatin 40 mg tablet 40 mg PO DAILY Qty: 30 5RF isosorbide mononitrate 30 mg Tablet Extended Release 24 Hr 30 mg PO QAM Qty: 30 0RF omeprazole 20 mg Capsule,Delayed Release(Dr/Ec) 20 mg PO DAILY Systane (PF) 0.4-0.3 % Dropperette 1 drp OPB BID amoxicillin 500 mg capsule 2,000 mg PO DAILY PRN (Reason: 1 hour prior to dental work) docosanol [Abreva] 10 % Cream 1 applic TOPICAL UD PRN (Reason: Cold Sores) Rx Instructions: may keep at bedside loperamide [Anti-Diarrheal (loperamide)] 2 mg Tablet 2 mg PO UD MDD 4 PRN (Reason: Diarrhea) Rx Instructions: take 2 tablets after 1st loose stool, then 1 tablet thereafter each loose stool max of 4 tabs in 24 hours nystatin 100,000 unit/gram Cream 1 applic TOPICAL BID PRN (Reason: fungus) trolamine salicylate [Aspercreme] 10 % Cream 1 applic TOPICAL QID PRN (Reason: Pain) Rx Instructions: may keep at bedside for independent use Metamucil [place] Powder 1 tbsp PO DAILY Rx Instructions: mix into 6-8 ounces of fluid and drink Changed sertraline 50 mg tablet 25 mg PO QAM Qty: 30 0RF Discontinued metoprolol succinate 25 mg Tablet Extended Release 24 Hr 12.5 mg PO DAILY lisinopril 5 mg tablet 5 mg PO DAILY Discharge Orders: Discharge Order (Routine); Ordered 08/06/22 Ordered By: Vincent Stewart Admission Data Admit Date/Time: 08/04/22 15:58 Attending Provider: Vincent Stewart Admit Provider: Dante Ruiz Primary Care Provider: Jose Alva,Qritiqr, [facility] Other Providers: Dante Ruiz ; [facility]
== END 2022-08-06 13:15 | disposition home or self-care (01) | DRG 304 ==
LOC: ED 01:23 → 2E 01:23

== ENCOUNTER 2022-08-06 22:07 | Inpatient (IN) ==
[2022-08-06] MEDS ORDERED: SODIUM CHLORIDE 0.9% 1000ML 1,000 ML IV ONE (22:36)
[2022-08-06] MEDS ORDERED: OPTIRAY 320 500ml IV ONE (22:47)
[2022-08-06 23:05] LABS: Basophils # (auto) 0.06 K/uL (0-0.2); Basophils % (auto) 0.8 %; Eosinophils % (auto) 5.1 %; Hematocrit (blood only) 33.6 % (34.1-44.9); Hemoglobin 11.2 g/dl (12.0-16.0); Immature Granulocytes # (auto) 0.03 K/uL (0.00-0.02); Immature Granulocytes % (auto) 0.4 %; Lymphocytes % (auto) 15.3 %; Mean Corpuscular Hemoglobin 32.3 pg (25.0-34.0); Mean Corpuscular Hgb Conc 33.3 g/dL (32.0-36.0); Mean Corpuscular Volume 96.8 fL (80.0-100.0); Mean Platelet Volume 10.6 fL (9.4-12.3); Monocytes # (auto) 0.77 K/uL (0.24-0.82); Monocytes % (auto) 9.8 %; Neutrophils # (auto) 5.38 K/uL (1.4-6.5); Neutrophils % (auto) 68.6 %; Platelet Count 209 K/uL (130-400); RDW Coefficient of Variation 13.3 % (11.5-14.5); RDW Standard Deviation 47.8 fL (36.4-46.3); Red Blood Count 3.47 M/uL (3.93-5.22); White Blood Count 7.84 K/ul (4.8-10.8)
--- NOTE | 2022-08-06 23:14 | CT Scan Report ---
UNENHANCED CT OF THE BRAIN; CT ANGIOGRAM OF THE BRAIN; CT ANGIOGRAM OF THE NECK CLINICAL HISTORY: Change in mental status. COMPARISON STUDY: CT of the brain dated 08/04/2022. MR angiogram of the brain dated 01/26/2012. TECHNIQUE: Unenhanced axial CT scan of the brain is performed. Subsequently, following the IV adminis tration of 101 of [address] 320, CT angiogram of the head and neck was performed from the aortic arch t o the vertex. Images are reviewed in the axial, sagittal, and coronal planes. 3-D MIPS images are cre ated and assessed. IV contrast was administered without complication. All measurements were calculate d based on NASCET criteria. A dose lowering technique was utilized adhering to the principles of ALA RA. CT DOSE: 1042.24 mGy.cm FINDINGS: Brain parenchyma: There is age related involutional change noting mild subcortical and periventricula r microangiopathic disease. There is no hemorrhage, mass effect, or evidence of acute territorial isc hemia by CT criteria. There is no evidence of enhancing mass lesion on the angiogram phase images. Th e ventricles, sulci, and cisterns are prominent secondary to involutional change. Fajardo-white matter d ifferentiation is preserved. No extra-axial fluid collection is seen. Thoracic aorta: There is atherosclerotic calcification of the thoracic aorta. Visualized portions of the thoracic aorta are normal in caliber. The aortic arch demonstrates standard 3-vessel anatomy. Right carotid arterial system: The right common carotid artery is widely patent, as are the right int ernal and external carotid arteries. Calcified plaque is seen in the carotid bulb. Left carotid arterial system: The left common carotid artery is widely patent, as are the left [employer] internship al and external carotid arteries. Calcified plaque is noted in the carotid bulb. Vertebral arteries: The vertebral arteries are widely patent bilaterally and codominant. Subclavian arteries: Widely patent bilaterally. Intracranial vasculature: There is atherosclerotic calcification of the cavernous carotid and vertebr al arteries. The internal carotid arteries are patent at the skull base, as are the anterior and midd le cerebral arteries bilaterally. The vertebrobasilar system and posterior cerebral arteries are wide ly patent. There is origin of the right posterior cerebral artery. The vertebral arteries are c odominant. There is no aneurysm, high-grade stenosis, or focal vessel cut off seen throughout the int racranial circulation. Jugular veins: Patent bilaterally. Dural sinuses: Patent. Lung apices: Emphysematous change is seen in the upper lobes. Upper lobe lung parenchyma is otherwise clear as visualized. Soft tissues: The visualized pharyngeal soft tissues are normal in appearance noting angiographic pha se technique. The oropharyngeal airway appears widely patent. The thyroid gland is heterogeneous. The salivary glands are normal in appearance. No cervical lymphadenopathy is seen. Skeletal structures: The skeletal structures are osteopenic. The calvarium appears intact. The cervic al spine is maintained noting multilevel spondylosis. No lytic or blastic lesion is seen. Orbits: The bony orbits are intact. Orbital contents are normal as visualized noting bilateral ocular lens implants. Sinuses and mastoids: The paranasal sinuses are clear. There is trace right mastoid effusion. The lef t mastoid air cells are well pneumatized. IMPRESSION: 1. There is no hemorrhage, mass effect, or evidence of acute territorial ischemia by CT criteria. 2. Unremarkable CT angiogram of the brain. 3. Unremarkable CT angiogram of the neck. ACT 112: Negative or not required by law. Electronically signed by: Don Fallon M.D. 08/06/2022 11:11 PM
[2022-08-06 23:20] LABS: Alanine Aminotransferase 13 U/L (7-52); Albumin Globulin Ratio 1.4 (0.9-2); Albumin Level 3.7 gm/dl (3.4-5.0); Alkaline Phosphatase 70 U/L (34-104); Anion Gap 8 (3-11); Aspartate Aminotransferase 19 U/L (13-39); BUN Creatinine Ratio 28.7 (10-20); Bilirubin,Total 1.8 mg/dl (0.2-1.0); Blood Urea Nitrogen 33 mg/dl (6-23); Carbon Dioxide 24 mmol/L (21-32); Chloride 103 mmol/L (98-107); Est GFR (African American) 49.9 ml/min; Globulin 2.6 gm/dl (2.5-4.0); Glucose 90 mg/dl (70-99(Fasting)); Magnesium 1.9 mg/dl (1.7-2.4); Phosphorus 2.9 mg/dl (2.5-4.9); Potassium 3.8 mmol/L (3.5-5.1); Sodium 135 mmol/L (136-145); Total Protein 6.3 gm/dl (6.0-8.3)
[2022-08-06 23:40] LABS: Troponin I High Sensitivity 79.6 pg/ml (0-14)
--- NOTE | 2022-08-06 23:47 | XRay Report ---
SINGLE VIEW CHEST CLINICAL HISTORY: Change in mental status. FINDINGS: An AP, portable, upright chest radiograph is compared to study dated 08/04/2022 and correlat ed with chest CT dated 09/28/2019. The patient is status post midline sternotomy. The heart is enlarged noting atherosclerotic calcification of the thoracic aorta. The pulmonary vasculature is noncongeste d. Emphysema and chronic interstitial thickening is similar to previous. Apical scarring is observed. Airspace consolidation is seen at the left lung base. Small left pleural effusion is noted. Addition al foci of parenchymal scarring are seen throughout both lungs. No pneumothorax is seen. The skeletal structures are osteopenic. The bony thorax is grossly intact. Arthritic change is noted in the shoul ders and spine. IMPRESSION: 1. Cardiomegaly and emphysema without radiographic evidence of congestive failure. 2. Small left pleural effusion and left basilar consolidation. This is similar in appearance to the examination. ACT 112: Negative or not required by law. Electronically signed by: Don Fallon M.D. 08/06/2022 11:46 PM
[2022-08-06 23:48] LABS: Appearance Urine Cloudy (Clear); Bacteria Urine Automated 2+ (Negative); Bilirubin Urine Negative (Negative); Blood Urine Negative (Negative); Color Urine Yellow; Epithelial Cell Urine Auto >30 /lpf (0-5); Glucose Urine UA Negative (Negative); Ketones Urine Trace (Negative); Leukocyte Esterase Urine Trace (Negative); Nitrite Urine Negative (Negative); Protein Urine 2+ (Negative); RBC Urine Automated 0-4 /hpf (0-4); Specific Gravity Urine 1.017 (1.000-1.030); Urobilinogen Urine Negative (Negative)
[2022-08-07] MEDS ORDERED: hydrALAZINE HCL 20 MG/ML VIAL IV ONE (00:47)
[2022-08-07] MEDS ORDERED: AZTREONAM 1,000 MG in DEXTROSE 5% 100 ML IV STA (01:15)
--- NOTE | 2022-08-07 01:39 | History & Physical Report ---
Date of Service August 07, 2022 Assessment & Plan (1) Encephalopathy: Plan: Multifactorial : Hypertensive crisis Clinical dehydration, hemoconcentration and creatinine increase from baseline noted on blood work ? Complicated UTI, no sepsis for now Troponin elevation secondary to uncontrolled blood pressure hx CAD status post stent aortic stenosis status post bioprosthetic AVR hyperlipidemia, on statin Rx hx PMR cervical cancer status post surgery chronic anemia, hemoglobin better than baseline possibly from hemoconcentration from mild dehydration Prediabetes, hemoglobin A1c of 5.7 this month mood disorder PCU Titrate home BP meds Urine CS, Azactam Follow troponin Gentle IV hydration Hold home diuretic until patient euvolemic PTOT eval DVT prophylaxis. Lovenox subcu DNR as per patient's prior directives. Patient daughter requesting updates providers. Ms. Jesisca Garcias, contact #[phone]. Text document was generated using [employer] voice recognition software. It may contain grammatical or spelling errors. Kindly contact undersigned for clarification of any documentation item in question. History of Present Illness Chief Complaint: Confusion My name is Batsheva as per patient. Primary Care Provider: [facility], [facility] History obtained from patient, personal snf staff , and records. Limited history from patient secondary to confused state. Medical history significant for CAD status post stent, aortic stenosis status post bioprosthetic AVR, hypertension, hyperlipidemia, PMR, cervical cancer status post surgery, chronic anemia (baseline hemoglobin 9-10), prediabetes, mood disorder. Recent confinement August 04 to 2022 for metabolic encephalopathy attributed to uncontrolled hypertension and electrolyte abnormalities. Patient home Toprol XL and lisinopril doses increased on discharge yesterday. As per [facility] staff, patient looked tired upon return to personal snf yesterday. Patient later noted to be more confused than usual. Patient unable to answer questions regarding headache, chest pain, shortness of breath, abdominal pain, dysuria. 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 Allergies Allergy/AdvReac Type Severity Reaction Status Date / Time allopurinol Allergy Unknown ON [place] Verified 08/04/22 02:12 [place] [facility] Cephalosporins Allergy Unknown ON [place] Verified 08/04/22 02:12 [place] [facility] gramicidin D [From Neocidin] Allergy Unknown Redness of Verified 08/04/22 02:13 Skin neomycin [From Neocidin] Allergy Unknown Redness of Verified 08/04/22 02:13 Skin polymyxin B [From Neocidin] Allergy Unknown Redness of Verified 08/04/22 02:13 Skin Home Medications Medication Instructions Recorded Confirmed Type aspirin 81 mg tablet,delayed 81 mg PO DAILY 06/11/18 08/04/22 History release (Lyly Low Dose Aspirin) cholecalciferol (vitamin D3) 25 1,000 unit PO DAILY 06/11/18 08/04/22 History mcg (1,000 unit) tablet docusate sodium 100 mg capsule 100 mg PO BID 06/11/18 08/04/22 History furosemide 20 mg tablet 20 mg PO DAILYBB 06/11/18 08/04/22 History acetaminophen 500 mg tablet 500 mg PO Q4 PRN Pain 07/29/18 08/04/22 History (Acetaminophen Extra Strength) ferrous sulfate 325 mg (65 mg 325 mg PO TID 07/29/18 08/04/22 History iron) tablet aluminum-mag hydroxide-simethicone 10 - 20 ml PO QID PRN 09/27/19 08/04/22 History 400 mg-400 mg-40 mg/5 mL oral susp HEARTBURN/INDIGESTION/GAS (Antacid-Simethicone) dextromethorphan-guaifenesin 30 1 tab PO Q12H PRN Congestion 09/27/19 08/04/22 History mg-600 mg tablet extended [id number] hr (Mucinex DM) dimethicone-zinc oxide topical 1 applic topical DAILY PRN Skin 09/27/19 08/04/22 History cream (Rosemarie Protect Irritation (dimethicone-zinc oxide) topical cream) fexofenadine 180 mg tablet 180 mg PO DAILY 09/27/19 08/04/22 History hydrocortisone 1 % topical cream 1 applic topical DIRECTED PRN 09/27/19 08/04/22 History Rash oxybutynin chloride 5 mg tablet 5 mg PO DAILY 09/27/19 08/04/22 History sennosides 8.6 mg tablet 8.6 mg PO DAILY PRN Constipation 09/27/19 08/04/22 History atorvastatin 40 mg tablet 40 mg PO DAILY #30 tabs 10/01/19 08/04/22 Rx nitroglycerin 0.4 mg sublingual 0.4 mg sublingual UD PRN chest 10/01/19 08/04/22 Rx tablet (Nitrostat) pain #25 tabs isosorbide mononitrate 30 mg 30 mg PO QAM #30 tabs 10/27/19 08/04/22 Rx tablet,extended release 24 hr amoxicillin 500 mg capsule 2,000 mg PO DAILY PRN 1 hour prior 08/04/22 08/04/22 History to dental work docosanol 10 % topical cream 1 applic topical UD PRN Cold Sores 08/04/22 08/04/22 History (Abreva) loperamide 2 mg tablet 2 mg PO UD PRN Diarrhea 08/04/22 08/04/22 History (Anti-Diarrheal (loperamide)) nystatin 100,000 unit/gram topical 1 applic topical BID PRN fungus 08/04/22 08/04/22 History cream omeprazole 20 mg capsule,delayed 20 mg PO DAILY 08/04/22 08/04/22 History release peg 400-propylene glycol (PF) 0.4 1 drp OPB BID 08/04/22 08/04/22 History %-0.3 % eye drops in a dropperette (Systane (PF)) psyllium seed (sugar) oral powder 1 tbsp PO DAILY 08/04/22 08/04/22 History (Metamucil Baskin oral powder) trolamine salicylate 10 % topical 1 applic topical QID PRN Pain 08/04/22 08/04/22 History cream (Aspercreme) lisinopril 10 mg tablet 20 mg PO DAILY #60 tabs 08/06/22 Rx metoprolol succinate 50 mg 50 mg PO DAILY #30 tabs 08/06/22 Rx tablet,extended release 24 hr sertraline 50 mg tablet 25 mg PO QAM #30 tabs 08/06/22 08/04/22 Rx Past Med/Surg History Medical History (Updated 08/07/22 @ 02:27 by Santiago Botello MD) Aortic valve stenosis Cervical cancer 1997--sx Chronic diastolic heart failure Chronic kidney disease, stage 3 (moderate) Diverticular disease Dyslipidemia Gout Gout History of colon polyps History of esophageal dilatation History of falling Hypertension NSTEMI (non-ST elevated myocardial infarction) 09/2019 Osteoarthritis Polymyalgia rheumatica Schatzki's ring Status post closed fracture of right femur Surgical [place] [facility] [place] H/O total hysterectomy History of breast biopsy History of cardiac cath 08/20/2007 History of cholecystectomy History of colonoscopy History of esophagogastroduodenoscopy (EGD) History of vein stripping x2 Family History Mother Rectal cancer Social History Smoking Status: Unknown if ever smoked Tobacco Type: Cigarettes Second Hand Exposure: No; Hx Alcohol Use: No Hx Substance Use: No Preferred Language: Welsh Communication Ability: Effective Manager Animal Required: No Beliefs That Will Affect Care: None Current Living Situation: Personal Care Facility Current Living Situation Comment: [facility] current occupational status: retired Other Information That Helps Us Care for You: No Feels Safe at Home: Yes Safety Concerns: Feels Safe At This Time Assistive Devices: Glasses and Walker Review of Systems Review of Systems: Could not be reliably obtained secondary to disorientation Physical Exam Physical Exam: GENERAL: Disoriented, slightly anxious, repetitive eye blinking, repetitively ut tering 'my name is Batsheva', no respiratory distress SKIN: Pallor, warm HEENT: Pale palpebral conjunctivae, no ptosis, dry buccal mucosa NECK : Supple, no tenderness CHEST : CTA, no tenderness HEART : RRR, no obvious murmurs ABDOMEN: Some distention, nontender EXTREMITIES : No LE swelling/tenderness, no other conspicuous deformities noted NEUROLOGIC : Disoriented, no facial asymmetry, gait and stance not assessed Results & Data Results & Data ([facility]) Vital Signs (Past 12 Hours) Vital Signs Temp Pulse Resp BP Pulse Ox O2 Del Method O2 Flow Rate 08/06/22 23:00 67 15 193/104 H 96 08/06/22 22:30 68 15 96 08/06/22 22:30 210/78 H 08/06/22 22:23 214/85 H 08/06/22 22:23 65 13 96 08/06/22 22:16 208/84 H 08/06/22 22:16 65 21 08/06/22 22:12 67 20 08/06/22 21:57 Room Air 96 08/06/22 21:57 36.6 C 68 18 214/85 H 96 Room Air Laboratory Results Laboratory Results WBC 7.84 K/ul (4.8-10.8) 08/06/22 Unknown RBC 3.47 M/uL (3.93-5.22) L 08/06/22 Unknown Hgb 11.2 g/dl (12.0-16.0) L 08/06/22 Unknown Hct 33.6 % (34.1-44.9) L 08/06/22 Unknown MCV 96.8 fL (80.0-100.0) 08/06/22 Unknown MCH 32.3 pg (25.0-34.0) 08/06/22 Unknown MCHC 33.3 g/dL (32.0-36.0) 08/06/22 Unknown RDW Std Deviation 47.8 fL (36.4-46.3) H 08/06/22 Unknown RDW Coeff of Jimmie 13.3 % (11.5-14.5) 08/06/22 Unknown Plt Count 209 K/uL (130-400) 08/06/22 Unknown MPV 10.6 fL (9.4-12.3) 08/06/22 Unknown Immature Gran % (Auto) 0.4 % 08/06/22 Unknown Neut % (Auto) 68.6 % 08/06/22 Unknown Lymph % (Auto) 15.3 % 08/06/22 Unknown Foard % (Auto) 9.8 % 08/06/22 Unknown Eos % (Auto) 5.1 % 08/06/22 Unknown Baso % (Auto) 0.8 % 08/06/22 Unknown Neut # (Auto) 5.38 K/uL (1.4-6.5) 08/06/22 Unknown Lymph # (Auto) 1.20 K/uL (1.2-3.4) 08/06/22 Unknown Foard # (Auto) 0.77 K/uL (0.24-0.82) 08/06/22 Unknown Eos # (Auto) 0.40 K/uL (0-0.50) 08/06/22 Unknown Baso # (Auto) 0.06 K/uL (0-0.2) 08/06/22 Unknown Immature Gran # (Auto) 0.03 K/uL (0.00-0.02) H 08/06/22 Unknown Sodium 135 mmol/L (136-145) L 08/06/22 Unknown Potassium 3.8 mmol/L (3.5-5.1) 08/06/22 Unknown Chloride 103 mmol/L (98-107) 08/06/22 Unknown Carbon Dioxide 24 mmol/L (21-32) 08/06/22 Unknown Anion Gap 8 (3-11) 08/06/22 Unknown BUN 33 mg/dl (6-23) H 08/06/22 Unknown Creatinine 1.15 mg/dl (0.6-1.2) 08/06/22 Unknown Est Cr Clr Drug Dosing Not Reportable 08/06/22 Unknown Est GFR ( Amer) 49.9 ml/min 08/06/22 Unknown Est GFR (Non-Af Amer) 43.0 ml/min 08/06/22 Unknown BUN/Creatinine Ratio 28.7 (10-20) H 08/06/22 Unknown Glucose 90 mg/dl (70-99(Fasting)) 08/06/22 Unknown POC Glucose 86 mg/dl (70-99) 08/06/22 22:35 Calcium 9.0 mg/dl (8.5-10.1) 08/06/22 Unknown Phosphorus 2.9 mg/dl (2.5-4.9) 08/06/22 Unknown Magnesium 1.9 mg/dl (1.7-2.4) 08/06/22 Unknown Total Bilirubin 1.8 mg/dl (0.2-1.0) H 08/06/22 Unknown AST 19 U/L (13-39) 08/06/22 Unknown ALT 13 U/L (7-52) 08/06/22 Unknown Alkaline Phosphatase 70 U/L (34-104) 08/06/22 Unknown Troponin I High Sens 79.6 pg/ml (0-14) H* 08/06/22 Unknown Total Protein 6.3 gm/dl (6.0-8.3) 08/06/22 Unknown Albumin 3.7 gm/dl (3.4-5.0) 08/06/22 Unknown Globulin 2.6 gm/dl (2.5-4.0) 08/06/22 Unknown Albumin/Globulin Ratio 1.4 (0.9-2) 08/06/22 Unknown TSH 2.759 uIu/ml (0.300-4.500) 08/06/22 Unknown Urine Color Yellow 08/06/22 Unknown Urine Appearance Cloudy (Clear) A 08/06/22 Unknown Urine pH 6.0 (4.5-7.5) 08/06/22 Unknown Ur Specific [place] 1.017 (1.000-1.030) 08/06/22 Unknown Urine Protein 2+ (Negative) H 08/06/22 Unknown Urine Glucose (UA) Negative (Negative) 08/06/22 Unknown Urine Ketones Trace (Negative) H 08/06/22 Unknown Urine Blood Negative (Negative) 08/06/22 Unknown Urine Nitrite Negative (Negative) 08/06/22 Unknown Urine Bilirubin Negative (Negative) 08/06/22 Unknown Urine Urobilinogen Negative (Negative) 08/06/22 Unknown Ur Leukocyte Esterase Trace (Negative) H 08/06/22 Unknown Urine WBC (Auto) 10-30 /hpf (0-5) H 08/06/22 Unknown Urine RBC (Auto) 0-4 /hpf (0-4) 08/06/22 Unknown U Hyaline Cast (Auto) 1-5 /lpf (0-5) 08/06/22 Unknown U Epithel Cells (Auto) >30 /lpf (0-5) H 08/06/22 Unknown Urine Bacteria (Auto) 2+ (Negative) H 08/06/22 Unknown SARS-CoV-2, RNA, NAAT NEGATIVE (NEGATIVE) 08/06/[address] 08/06/22 22:[address] OF THE BRAIN; CT ANGIOGRAM OF THE BRAIN; CT ANGIOGRAM OF THE NECK CLINICAL HISTORY: Change in mental status. COMPARISON STUDY: CT of the brain dated 08/04/2022. MR angiogram of the brain dated 01/26/2012. TECHNIQUE: Unenhanced axial CT scan of the brain is performed. Subsequently, following the IV administration of 101 of Optiray 320, CT angiogram of the head and neck was performed from the aortic arch to the vertex. Images are reviewed in the axial, sagittal, and coronal planes. 3-D MIPS images are created and assessed. IV contrast was administered without complication. All measurements were calculated based on NASCET criteria. A dose lowering technique was utilized adhering to the principles of ALARA. CT DOSE: 1042.24 mGy.cm FINDINGS: Brain parenchyma: There is age related involutional change noting mild subcortical and periventricular microangiopathic disease. There is no hemorrhage, mass effect, or evidence of acute territorial ischemia by CT criteria. There is no evidence of enhancing mass lesion on the angiogram phase images. The ventricles, sulci, and cisterns are prominent secondary to involutional change. Fajardo-white matter differentiation is preserved. No extra- axial fluid collection is seen. Thoracic aorta: There is atherosclerotic calcification of the thoracic aorta. Visualized portions of the thoracic aorta are normal in caliber. The aortic arch demonstrates standard 3-vessel anatomy. Right carotid arterial system: The right common carotid artery is widely patent, as are the right internal and external carotid arteries. Calcified plaque is seen in the carotid bulb. Left carotid arterial system: The left common carotid artery is widely patent, as are the left internal and external carotid arteries. Calcified plaque is noted in the carotid bulb. Vertebral arteries: The vertebral arteries are widely patent bilaterally and codominant. Subclavian arteries: Widely patent bilaterally. Intracranial vasculature: There is atherosclerotic calcification of the cavernous carotid and vertebral arteries. The internal carotid arteries are patent at the skull base, as are the anterior and middle cerebral arteries bilaterally. The vertebrobasilar system and posterior cerebral arteries are widely patent. There is origin of the right posterior cerebral artery. The vertebral arteries are codominant. There is no aneurysm, high-grade stenosis, or focal vessel cut off seen throughout the intracranial circulation. Jugular veins: Patent bilaterally. Dural sinuses: Patent. Lung apices: Emphysematous change is seen in the upper lobes. Upper lobe lung parenchyma is otherwise clear as visualized. Soft tissues: The visualized pharyngeal soft tissues are normal in appearance n oting angiographic phase technique. The oropharyngeal airway appears widely patent. The thyroid gland is heterogeneous. The salivary glands are normal in appearance. No cervical lymphadenopathy is seen. Skeletal structures: The skeletal structures are osteopenic. The calvarium appears intact. The cervical spine is maintained noting multilevel spondylosis. No lytic or blastic lesion is seen. Orbits: The bony orbits are intact. Orbital contents are normal as visualized noting bilateral ocular lens implants. Sinuses and mastoids: The paranasal sinuses are clear. There is trace right mastoid effusion. The left mastoid air cells are well pneumatized. IMPRESSION: 1. There is no hemorrhage, mass effect, or evidence of acute territorial ischemia by CT criteria. 2. Unremarkable CT angiogram of the brain. 3. Unremarkable CT angiogram of the neck. ACT 112: Negative or not required by law. Electronically signed by: Don Fallon M.D. 08/06/2022 11:11 PM Head CTA 08/06/22 22:[address] OF THE BRAIN; CT ANGIOGRAM OF THE BRAIN; CT ANGIOGRAM OF THE NECK CLINICAL HISTORY: Change in mental status. COMPARISON STUDY: CT of the brain dated 08/04/2022. MR angiogram of the brain dated 01/26/2012. TECHNIQUE: Unenhanced axial CT scan of the brain is performed. Subsequently, following the IV administration of 101 of Optiray 320, CT angiogram of the head and neck was performed from the aortic arch to the vertex. Images are reviewed in the axial, sagittal, and coronal planes. 3-D MIPS images are created and assessed. IV contrast was administered without complication. All measurements were calculated based on NASCET criteria. A dose lowering technique was utilized adhering to the principles of ALARA. CT DOSE: 1042.24 mGy.cm FINDINGS: Brain parenchyma: There is age related involutional change noting mild subcortical and periventricular microangiopathic disease. There is no hemorrhage, mass effect, or evidence of acute territorial ischemia by CT criteria. There is no evidence of enhancing mass lesion on the angiogram phase images. The ventricles, sulci, and cisterns are prominent secondary to involutional change. Fajardo-white matter differentiation is preserved. No extra- axial fluid collection is seen. Thoracic aorta: There is atherosclerotic calcification of the thoracic aorta. Visualized portions of the thoracic aorta are normal in caliber. The aortic arch demonstrates standard 3-vessel anatomy. Right carotid arterial system: The right common carotid artery is widely patent, as are the right internal and external carotid arteries. Calcified plaque is seen in the carotid bulb. Left carotid arterial system: The left common carotid artery is widely patent, as are the left internal and external carotid arteries. Calcified plaque is noted in the carotid bulb. Vertebral arteries: The vertebral arteries are widely patent bilaterally and codominant. Subclavian arteries: Widely patent bilaterally. Intracranial vasculature: There is atherosclerotic calcification of the cavernous carotid and vertebral arteries. The internal carotid arteries are patent at the skull base, as are the anterior and middle cerebral arteries bilaterally. The vertebrobasilar system and posterior cerebral arteries are widely patent. There is origin of the right posterior cerebral artery. The vertebral arteries are codominant. There is no aneurysm, high-grade stenosis, or focal vessel cut off seen throughout the intracranial circulation. Jugular veins: Patent bilaterally. Dural sinuses: Patent. Lung apices: Emphysematous change is seen in the upper lobes. Upper lobe lung parenchyma is otherwise clear as visualized. Soft tissues: The visualized pharyngeal soft tissues are normal in appearance noting angiographic phase technique. The oropharyngeal airway appears widely patent. The thyroid gland is heterogeneous. The salivary glands are normal in appearance. No cervical lymphadenopathy is seen. Skeletal structures: The skeletal structures are osteopenic. The calvarium appears intact. The cervical spine is maintained noting multilevel spondylosis. No lytic or blastic lesion is seen. Orbits: The bony orbits are intact. Orbital contents are normal as visualized noting bilateral ocular lens implants. Sinuses and mastoids: The paranasal sinuses are clear. There is trace right mastoid effusion. The left mastoid air cells are well pneumatized. IMPRESSION: 1. There is no hemorrhage, mass effect, or evidence of acute territorial ischemia by CT criteria. 2. Unremarkable CT angiogram of the brain. 3. Unremarkable CT angiogram of the neck. ACT 112: Negative or not required by law. Electronically signed by: Don Fallon M.D. 08/06/2022 11:11 PM Neck CTA 08/06/22 22:[address] OF THE BRAIN; CT ANGIOGRAM OF THE BRAIN; CT ANGIOGRAM OF THE NECK CLINICAL HISTORY: Change in mental status. COMPARISON STUDY: CT of the brain dated 08/04/2022. MR angiogram of the brain dated 01/26/2012. TECHNIQUE: Unenhanced axial CT scan of the brain is performed. Subsequently, following the IV administration of 101 of Optiray 320, CT angiogram of the head and neck was performed from the aortic arch to the vertex. Images are reviewed in the axial, sagittal, and coronal planes. 3-D MIPS images are created and assessed. IV contrast was administered without complication. All measurements were calculated based on NASCET criteria. A dose lowering technique was utilized adhering to the principles of ALARA. CT DOSE: 1042.24 mGy.cm FINDINGS: Brain parenchyma: There is age related involutional change noting mild subcortical and periventricular microangiopathic disease. There is no hemorrhage, mass effect, or evidence of acute territorial ischemia by CT criteria. There is no evidence of enhancing mass lesion on the angiogram phase images. The ventricles, sulci, and cisterns are prominent secondary to involutional change. Fajardo-white matter differentiation is preserved. No extra- axial fluid collection is seen. Thoracic aorta: There is atherosclerotic calcification of the thoracic aorta. Visualized portions of the thoracic aorta are normal in caliber. The aortic arch demonstrates standard 3-vessel anatomy. Right carotid arterial system: The right common carotid artery is widely patent, as are the right internal and external carotid arteries. Calcified plaque is seen in the carotid bulb. Left carotid arterial system: The left common carotid artery is widely patent, as are the left internal and external carotid arteries. Calcified plaque is noted in the carotid bulb. Vertebral arteries: The vertebral arteries are widely patent bilaterally and codominant. Subclavian arteries: Widely patent bilaterally. Intracranial vasculature: There is atherosclerotic calcification of the cavernous carotid and vertebral arteries. The internal carotid arteries are patent at the skull base, as are the anterior and middle cerebral arteries bilaterally. The vertebrobasilar system and posterior cerebral arteries are widely patent. There is origin of the right posterior cerebral artery. The vertebral arteries are codominant. There is no aneurysm, high-grade stenosis, or focal vessel cut off seen throughout the intracranial circulation. Jugular veins: Patent bilaterally. Dural sinuses: Patent. Lung apices: Emphysematous change is seen in the upper lobes. Upper lobe lung parenchyma is otherwise clear as visualized. Soft tissues: The visualized pharyngeal soft tissues are normal in appearance noting angiographic phase technique. The oropharyngeal airway appears widely patent. The thyroid gland is heterogeneous. The salivary glands are normal in appearance. No cervical lymphadenopathy is seen. Skeletal structures: The skeletal structures are osteopenic. The calvarium appears intact. The cervical spine is maintained noting multilevel spondylosis. No lytic or blastic lesion is seen. Orbits: The bony orbits are intact. Orbital contents are normal as visualized noting bilateral ocular lens implants. Sinuses and mastoids: The paranasal sinuses are clear. There is trace right mastoid effusion. The left mastoid air cells are well pneumatized. IMPRESSION: 1. There is no hemorrhage, mass effect, or evidence of acute territorial ischemia by CT criteria. 2. Unremarkable CT angiogram of the brain. 3. Unremarkable CT angiogram of the neck. ACT 112: Negative or not required by law. Electronically signed by: Don Fallon M.D. 08/06/2022 11:11 PM Chest X-Ray 08/06/22 22:33 SINGLE VIEW CHEST CLINICAL HISTORY: Change in mental status. FINDINGS: An AP, portable, upright chest radiograph is compared to study dated 08/04/2022 and correlated with chest CT dated 09/28/2019. The patient is status post midline sternotomy. The heart is enlarged noting atherosclerotic calcification of the thoracic aorta. The pulmonary vasculature is noncongested. Emphysema and chronic interstitial thickening is similar to previous. Apical scarring is observed. Airspace consolidation is seen at the left lung base. Small left pleural effusion is noted. Additional foci of parenchymal scarring are seen throughout both lungs. No pneumothorax is seen. The skeletal structures are osteopenic. The bony thorax is grossly intact. Arthritic change is noted in the shoulders and spine. IMPRESSION: 1. Cardiomegaly and emphysema without radiographic evidence of congestive failure. 2. Small left pleural effusion and left basilar consolidation. This is similar in appearance to the 08/04/2022 examination. ACT 112: Negative or not required by law. Electronically signed by: Don Fallon M.D. 08/06/2022 11:46 PM Diagnostic Findings EKG as per my interpretation : Rate 65, NSR, normal axis, T wave abnormalities lateral leads
[2022-08-07] MEDS ORDERED: LACTATED RINGER'S 1,000 ML IV STA (01:54)
[2022-08-07] MEDS ORDERED: SENNA 8.6 MG TAB PO PRN (01:57)
--- NOTE | 2022-08-07 02:27 | Emergency Department Note ---
Impression & Plan Encephalopathy, Elevated troponin, Hypertension ED Provider Note NAME: DIYA ROSE AGE: 87 SEX: F ARRIVES VIA: Ambulance INFORMANT: Patient ED PROVIDER(S): Santiago Botello MD CHIEF COMPLAINT: Confusion PLAN: Disposition: Admit MEDICAL DECISION MAKING: The patient is a 87-year-old woman with a past medical history of CKD, diastolic heart failure, hypertension, recent mission for hypertensive encephalopathy who presents emergency department from [facility] for evaluation of confusion from baseline after she had improved to her baseline in the hospital today and was discharged. Patient is a poor historian. On arrival the patient is no acute distress, afebrile blood pressure 210s/80s. Vital signs otherwise stable. Patient appears clinically dry. The patient does exhibit a component of confusion as well as aphasia and has she exhibits restlessness and confusion about where she is but when asked simple questions such as her name she will experience long pauses with difficulty answering. She moves all extremities equally though does not follow commands well. EKG without overt acute ischemia. Chest x-ray negative for acute cardiopulmonary process with emphysema noted with chronic interstitial thickening similar to prior. WBC and platelets within normal limits. H/H similar to prior values. Chemistry without metabolic acidosis. BUN/creatinine> 20 consistent with the patient's clinically dry appearance. Total bili 1.8, nonspecific with AST and ALT and alk phos within normal limits. High-sensitivity troponin seven 9.6, nonspecific and improved from prior values. TSH within normal limits. UA with WBCs and 2+ bacteria albeit with epithelial cells present. CT head and CT of the head and neck were performed and were negative for acute findings. The patient did receive IV fluid hydration. Given the patient's previous diagnosis of hypertensive encephalopathy she was ordered for IV hydralazine. Will defer treatment for possible UTI to admitting team given appears contaminated. Case was discussed with Dr. Ruiz, [facility] hospitalist who will evaluate the patient for admission. Triage Nursing notes reviewed and agree them. Prior medical records reviewed Vital Signs: reviewed Differential diagnosis: Infection, dehydration, metabolic abnormality, hypo/hyperglycemia, electrolyte disturbance, anemia, hypoxia, cardiac sources, intracerebral event, toxicologic, neurologic, as well as other pathologies. ER treatment provided: See below. Diagnostics interpreted by me: ECG: Suspect sinus rhythm versus atrial ectopic rhythm, 66 bpm, no overt ST elevation or depression, QTC 482, QRS 90. Significant motion artifact. Cardiac Monitoring: An order for continuous cardiac monitoring was placed and demonstrated normal sinus rhythm, 66 bpm, no ectopy. Laboratory studies: See below Imaging studies: See below Consultation(s): Case was discussed with Dr. Ruiz, [facility] hospitalist who will evaluate the patient for admission. HPI: The patient is a 87-year-old woman with a past medical history of CKD, diastolic heart failure, hypertension, recent mission for hypertensive encephalopathy who presents emergency department from [facility] for evaluation of confusion from baseline after she had improved to her baseline in the hospital today and was discharged. Patient is a poor historian. ROS: See above HPI for pertinent positives & negatives. A total of 10 systems r eviewed and were otherwise negative. VITALS:See Below PHYSICAL EXAMINATION: GENERAL: Awake, alert, restless/confused-appearing, in no distress HENT: Normocephalic, atraumatic. Oropharynx with dry mucous membranes and otherwise unremarkable. EYES: Normal conjunctiva. Sclera non-icteric. EOMI. No nystamgus. PEARRL. NECK: Supple. No nuchal rigidity. FROM. No JVD. RESPIRATORY: Clear to auscultation. CARDIAC: Regular rate, normal rhythm. Extremities warm and well perfused. Pulses equal. ABDOMEN: Soft, non-distended. No tenderness to palpation. No rebound or guarding. No masses. RECTAL: Deferred. MUSCULOSKELETAL: Chest examination reveals no tenderness. The back is symmetrical on inspection without obvious abnormality. There is no CVA tendern ess to palpation. No joint edema. LOWER EXTREMITIES: Calves are equal size bilaterally and non-tender. No edema. No discoloration. NEURO: Moving all extremities equally. Combination of expressive aphasia and confusion difficult to delineate. SKIN: No rash or jaundice noted. ED COURSE: Critical Care: I have personally spent greater than 35 minutes of critical care time in the direct management of this patient. This includes bedside care, interpretation of diagnostic studies, and testing, discussion with consultants, patient, and family members, and other required patient management activities. This 35 minutes is in excess of all separately billable procedures. Santiago Botello MD Past Med/Surg History Medical History (Updated 08/07/22 @ 02:27 by Santiago Botello MD) Aortic valve stenosis Cervical cancer 1997--sx Chronic diastolic heart failure Chronic kidney disease, stage 3 (moderate) Diverticular disease Dyslipidemia Gout Gout History of colon polyps History of esophageal dilatation History of falling Hypertension NSTEMI (non-ST elevated myocardial infarction) 09/2019 Osteoarthritis Polymyalgia rheumatica Schatzki's ring Status post closed fracture of right femur Surgical History H/O aortic valve replacement 09/2007 @ [facility] H/O cataract extraction H/O total hysterectomy History of breast biopsy History of cardiac cath 08/20/2007 History of cholecystectomy History of colonoscopy History of esophagogastroduodenoscopy (EGD) History of vein stripping x2 Family History Mother Rectal cancer Social History Smoking Status: Unknown if ever smoked Tobacco Type: Cigarettes Second Hand Exposure: No; Hx Alcohol Use: No Hx Substance Use: No Preferred Language: Nepali Communication Ability: Effective [employer] Required: No Beliefs That Will Affect Care: None Current Living Situation: Personal Care Facility Current Living Situation Comment: [facility] [place] current occupational status: retired Feels Safe at Home: Yes Assistive Devices: Walker Allergies Allergies Allergy/AdvReac Type Severity Reaction Status Date / Time allopurinol Allergy Unknown [place] Verified 08/04/22 02:12 [facility] Cephalosporins Allergy Unknown [place] Verified 08/04/22 02:12 [facility] gramicidin D [From Neocidin] Allergy Unknown Redness of Verified 08/04/22 02:13 Skin neomycin [From Neocidin] Allergy Unknown Redness of Verified 08/04/22 02:13 Skin polymyxin B [From Neocidin] Allergy Unknown Redness of Verified 08/04/22 02:13 Skin Home Meds Home Medications Medication Instructions Recorded Confirmed aspirin 81 mg tablet,delayed 81 mg PO DAILY 06/11/18 08/04/22 release (Lyly Low Dose Aspirin) cholecalciferol (vitamin D3) 25 1,000 unit PO DAILY 06/11/18 08/04/22 mcg (1,000 unit) tablet docusate sodium 100 mg capsule 100 mg PO BID 06/11/18 08/04/22 furosemide 20 mg tablet 20 mg PO DAILYBB 06/11/18 08/04/22 acetaminophen 500 mg tablet 500 mg PO Q4 PRN Pain 07/29/18 08/04/22 (Acetaminophen Extra Strength) ferrous sulfate 325 mg (65 mg 325 mg PO TID 07/29/18 08/04/22 iron) tablet aluminum-mag hydroxide-simethicone 10 - 20 ml PO QID PRN 09/27/19 08/04/22 400 mg-400 mg-40 mg/5 mL oral susp HEARTBURN/INDIGESTION/GAS (Antacid-Simethicone) dextromethorphan-guaifenesin 30 1 tab PO Q12H PRN Congestion 09/27/19 08/04/22 mg-600 mg tablet extended [id number] hr (Mucinex DM) dimethicone-zinc oxide topical 1 applic topical DAILY PRN Skin 09/27/19 08/04/22 cream (Rosemarie Protect Irritation (dimethicone-zinc oxide) topical cream) fexofenadine 180 mg tablet 180 mg PO DAILY 09/27/19 08/04/22 hydrocortisone 1 % topical cream 1 applic topical DIRECTED PRN 09/27/19 08/04/22 Rash oxybutynin chloride 5 mg tablet 5 mg PO DAILY 09/27/19 08/04/22 sennosides 8.6 mg tablet 8.6 mg PO DAILY PRN Constipation 09/27/19 08/04/22 amoxicillin 500 mg capsule 2,000 mg PO DAILY PRN 1 hour prior 08/04/22 08/04/22 to dental work docosanol 10 % topical cream 1 applic topical UD PRN Cold Sores 08/04/22 08/04/22 (Abreva) loperamide 2 mg tablet 2 mg PO UD PRN Diarrhea 08/04/22 08/04/22 (Anti-Diarrheal (loperamide)) nystatin 100,000 unit/gram topical 1 applic topical BID PRN fungus 08/04/22 08/04/22 cream omeprazole 20 mg capsule,delayed 20 mg PO DAILY 08/04/22 08/04/22 release peg 400-propylene glycol (PF) 0.4 1 drp OPB BID 08/04/22 08/04/22 %-0.3 % eye drops in a dropperette (Systane (PF)) psyllium seed (sugar) oral powder 1 tbsp PO DAILY 08/04/22 08/04/22 (Metamucil [place] oral powder) trolamine salicylate 10 % topical 1 applic topical QID PRN Pain 08/04/22 08/04/22 cream (Aspercreme) Previous Rx's Medication Instructions Recorded atorvastatin 40 mg tablet 40 mg PO DAILY #30 tabs 10/01/19 nitroglycerin 0.4 mg sublingual 0.4 mg sublingual UD PRN chest 10/01/19 tablet (Nitrostat) pain #25 tabs isosorbide mononitrate 30 mg 30 mg PO QAM #30 tabs 10/27/19 tablet,extended release 24 hr lisinopril 10 mg tablet 20 mg PO DAILY #60 tabs 08/06/22 metoprolol succinate 50 mg 50 mg PO DAILY #30 tabs 08/06/22 tablet,extended release 24 hr sertraline 50 mg tablet 25 mg PO QAM #30 tabs 08/06/22 Results & Data (ED) Vital Signs Vital Signs - 24 hr 08/06/22 21:57 08/06/22 21:57 08/06/22 21:57 Temperature 36.6 C Temperature Source Oral Pulse Rate 68 Pulse Rate from SpO2 Sensor Pulse Rhythm Regular Respiratory Rate 18 Respiratory Effort / Characteristics Non-Labored Non-Labored Spontaneous Respiratory Depth Normal Normal Respiratory Pattern Regular Regular Blood Pressure 214/85 H Blood Pressure Mean 128 Pulse Oximetry 96 Oxygen Delivery Method Room Air Room Air Oxygen Flow Rate 96 Sepsis New/Unexplained Change in Mental Status Yes Sepsis Action Taken by Nursing No Action Required 08/06/22 22:12 08/06/22 22:16 08/06/22 22:16 Temperature Temperature Source Pulse Rate 67 65 Pulse Rate from SpO2 Sensor 84 Pulse Rhythm Respiratory Rate 20 21 Respiratory Effort / Characteristics Respiratory Depth Respiratory Pattern Blood Pressure 208/84 H Blood Pressure Mean 125 Pulse Oximetry Oxygen Delivery Method Oxygen Flow Rate Sepsis New/Unexplained Change in Mental Status Sepsis Action Taken by Nursing 08/06/22 22:23 08/06/22 22:23 08/06/22 22:30 Temperature Temperature Source Pulse Rate 65 Pulse Rate from SpO2 Sensor 65 Pulse Rhythm Respiratory Rate 13 Respiratory Effort / Characteristics Respiratory Depth Respiratory Pattern Blood Pressure 214/85 H 210/78 H Blood Pressure Mean 128 122 Pulse Oximetry 96 Oxygen Delivery Method Oxygen Flow Rate Sepsis New/Unexplained Change in Mental Status Sepsis Action Taken by Nursing 08/06/22 22:30 08/06/22 23:00 Temperature Temperature Source Pulse Rate 68 67 Pulse Rate from SpO2 Sensor 63 68 Pulse Rhythm Respiratory Rate 15 15 Respiratory Effort / Characteristics Respiratory Depth Respiratory Pattern Blood Pressure 193/104 H Blood Pressure Mean 133 Pulse Oximetry 96 96 Oxygen Delivery Method Oxygen Flow Rate Sepsis New/Unexplained Change in Mental Status Sepsis Action Taken by Nursing Laboratory Data 08/06/22 Unknown 08/06/22 Unknown Lab Results 08/06/22 08/06/22 08/06/22 Range/Units 22:35 Unknown Unknown WBC 7.84 (4.8-10.8) K/ul RBC 3.47 L (3.93-5.22) M/uL Hgb 11.2 L (12.0-16.0) g/dl Hct 33.6 L (34.1-44.9) % MCV 96.8 (80.0-100.0) fL MCH 32.3 (25.0-34.0) pg MCHC 33.3 (32.0-36.0) g/dL RDW Std Deviation 47.8 H (36.4-46.3) fL RDW Coeff of Jimmie 13.3 (11.5-14.5) % Plt Count 209 (130-400) K/uL MPV 10.6 (9.4-12.3) fL Immature Gran % (Auto) 0.4 % Neut % (Auto) 68.6 % Lymph % (Auto) 15.3 % [place] % (Auto) 9.8 % Eos % (Auto) 5.1 % Baso % (Auto) 0.8 % Neut # (Auto) 5.38 (1.4-6.5) K/uL Lymph # (Auto) 1.20 (1.2-3.4) K/uL [place] # (Auto) 0.77 (0.24-0.82) K/uL Eos # (Auto) 0.40 (0-0.50) K/uL Baso # (Auto) 0.06 (0-0.2) K/uL Immature Gran # (Auto) 0.03 H (0.00-0.02) K/uL Sodium 135 L (136-145) mmol/L Potassium 3.8 (3.5-5.1) mmol/L Chloride 103 (98-107) mmol/L Carbon Dioxide 24 (21-32) mmol/L Anion Gap 8 (3-11) BUN 33 H (6-23) mg/dl Creatinine 1.15 (0.6-1.2) mg/dl Est Cr Clr Drug Dosing Not Reportable Est GFR ( Amer) 49.9 ml/min Est GFR (Non-Af Amer) 43.0 ml/min BUN/Creatinine Ratio 28.7 H (10-20) Glucose 90 (70-99(Fasting)) mg/dl POC Glucose 86 (70-99) mg/dl Calcium 9.0 (8.5-10.1) mg/dl Phosphorus 2.9 (2.5-4.9) mg/dl Magnesium 1.9 (1.7-2.4) mg/dl Total Bilirubin 1.8 H (0.2-1.0) mg/dl AST 19 (13-39) U/L ALT 13 (7-52) U/L Alkaline Phosphatase 70 (34-104) U/L Troponin I High Sens 79.6 H* (0-14) pg/ml Total Protein 6.3 (6.0-8.3) gm/dl Albumin 3.7 (3.4-5.0) gm/dl Globulin 2.6 (2.5-4.0) gm/dl Albumin/Globulin Ratio 1.4 (0.9-2) TSH (0.300-4.500) uIu/ml Urine Color Urine Appearance (Clear) Urine pH (4.5-7.5) Ur Specific [place] (1.000-1.030) Urine Protein (Negative) Urine Glucose (UA) (Negative) Urine Ketones (Negative) Urine Blood (Negative) Urine Nitrite (Negative) Urine Bilirubin (Negative) Urine Urobilinogen (Negative) Ur Leukocyte Esterase (Negative) Urine WBC (Auto) (0-5) /hpf Urine RBC (Auto) (0-4) /hpf U Hyaline Cast (Auto) (0-5) /lpf U Epithel Cells (Auto) (0-5) /lpf Urine Bacteria (Auto) (Negative) SARS-CoV-2, RNA, NAAT (NEGATIVE) 08/06/22 08/06/22 08/06/22 Range/Units Unknown Unknown Unknown WBC (4.8-10.8) K/ul RBC (3.93-5.22) M/uL Hgb (12.0-16.0) g/dl Hct (34.1-44.9) % MCV (80.0-100.0) fL MCH (25.0-34.0) pg MCHC (32.0-36.0) g/dL RDW Std Deviation (36.4-46.3) fL RDW Coeff of Jimmie (11.5-14.5) % Plt Count (130-400) K/uL MPV (9.4-12.3) fL Immature Gran % (Auto) % Neut % (Auto) % Lymph % (Auto) % [place] % (Auto) % Eos % (Auto) % Baso % (Auto) % Neut # (Auto) (1.4-6.5) K/uL Lymph # (Auto) (1.2-3.4) K/uL [place] # (Auto) (0.24-0.82) K/uL Eos # (Auto) (0-0.50) K/uL Baso # (Auto) (0-0.2) K/uL Immature Gran # (Auto) (0.00-0.02) K/uL Sodium (136-145) mmol/L Potassium (3.5-5.1) mmol/L Chloride (98-107) mmol/L Carbon Dioxide (21-32) mmol/L Anion Gap (3-11) BUN (6-23) mg/dl Creatinine (0.6-1.2) mg/dl Est Cr Clr Drug Dosing Est GFR ( Amer) ml/min Est GFR (Non-Af Amer) ml/min BUN/Creatinine Ratio (10-20) Glucose (70-99(Fasting)) mg/dl POC Glucose (70-99) mg/dl Calcium (8.5-10.1) mg/dl Phosphorus (2.5-4.9) mg/dl Magnesium (1.7-2.4) mg/dl Total Bilirubin (0.2-1.0) mg/dl AST (13-39) U/L ALT (7-52) U/L Alkaline Phosphatase (34-104) U/L Troponin I High Sens (0-14) pg/ml Total Protein (6.0-8.3) gm/dl Albumin (3.4-5.0) gm/dl Globulin (2.5-4.0) gm/dl Albumin/Globulin Ratio (0.9-2) TSH 2.759 (0.300-4.500) uIu/ml Urine Color Yellow Urine Appearance Cloudy A (Clear) Urine pH 6.0 (4.5-7.5) Ur Specific [place] 1.017 (1.000-1.030) Urine Protein 2+ H (Negative) Urine Glucose (UA) Negative (Negative) Urine Ketones Trace H (Negative) Urine Blood Negative (Negative) Urine Nitrite Negative (Negative) Urine Bilirubin Negative (Negative) Urine Urobilinogen Negative (Negative) Ur Leukocyte Esterase Trace H (Negative) Urine WBC (Auto) 10-30 H (0-5) /hpf Urine RBC (Auto) 0-4 (0-4) /hpf U Hyaline Cast (Auto) 1-5 (0-5) /lpf U Epithel Cells (Auto) >30 H (0-5) /lpf Urine Bacteria (Auto) 2+ H (Negative) SARS-CoV-2, RNA, NAAT NEGATIVE (NEGATIVE) Administered Medications Aztreonam 1,000 mg/ Dextrose 110 mls @ 100 mls/hr IV NOW STA; Protocol Stop: 08/07/22 02:20 Last Admin: 08/07/22 01:35 Dose: 100 mls/hr Documented By: JOHN Discontinued Medications Hydralazine HCl (Hydralazine Hcl 20 Mg/Ml Vial) 5 mg IV NOW ONE Stop: 08/07/22 00:48 Last Admin: 08/07/22 01:35 Dose: 5 mg Documented By: JOHN Sodium Chloride (Nss 1000ml) 1,000 mls @ 999 mls/hr IV .Q1H1M ONE Stop: 08/06/22 23:36 Last Admin: 08/06/22 23:41 Dose: 999 mls/hr Documented By: JOHN Ioversol (Optiray 320 500ml) 101 ml IV ONCE ONE Stop: 08/06/22 22:48 Last Admin: 08/06/22 22:52 Dose: 101 ml Documented By: CITLALI Imaging Data Radiologist's Impression: Head CT 08/06/22 22:[address] OF THE BRAIN; CT ANGIOGRAM OF THE BRAIN; CT ANGIOGRAM OF THE NECK CLINICAL HISTORY: Change in mental status. COMPARISON STUDY: CT of the brain dated 08/04/2022. MR angiogram of the brain dated 01/26/2012. TECHNIQUE: Unenhanced axial CT scan of the brain is performed. Subsequently, following the IV administration of 101 of Optiray 320, CT angiogram of the head and neck was performed from the aortic arch to the vertex. Images are reviewed in the axial, sagittal, and coronal planes. 3-D MIPS images are created and assessed. IV contrast was administered without complication. All measurements were calculated based on NASCET criteria. A dose lowering technique was utilized adhering to the principles of ALARA. CT DOSE: 1042.24 mGy.cm FINDINGS: Brain parenchyma: There is age related involutional change noting mild subcortical and periventricular microangiopathic disease. There is no hemorrhage, mass effect, or evidence of acute territorial ischemia by CT criteria. There is no evidence of enhancing mass lesion on the angiogram phase images. The ventricles, sulci, and cisterns are prominent secondary to involutional change. Fajardo-white matter differentiation is preserved. No extra- axial fluid collection is seen. Thoracic aorta: There is atherosclerotic calcification of the thoracic aorta. Visualized portions of the thoracic aorta are normal in caliber. The aortic arch demonstrates standard 3-vessel anatomy. Right carotid arterial system: The right common carotid artery is widely patent, as are the right internal and external carotid arteries. Calcified plaque is seen in the carotid bulb. Left carotid arterial system: The left common carotid artery is widely patent, as are the left internal and external carotid arteries. Calcified plaque is noted in the carotid bulb. Vertebral arteries: The vertebral arteries are widely patent bilaterally and codominant. Subclavian arteries: Widely patent bilaterally. Intracranial vasculature: There is atherosclerotic calcification of the cavernous carotid and vertebral arteries. The internal carotid arteries are patent at the skull base, as are the anterior and middle cerebral arteries bilaterally. The vertebrobasilar system and posterior cerebral arteries are widely patent. There is origin of the right posterior cerebral artery. The vertebral arteries are codominant. There is no aneurysm, high-grade stenosis, or focal vessel cut off seen throughout the intracranial circulation. Jugular veins: Patent bilaterally. Dural sinuses: Patent. Lung apices: Emphysematous change is seen in the upper lobes. Upper lobe lung parenchyma is otherwise clear as visualized. Soft tissues: The visualized pharyngeal soft tissues are normal in appearance noting angiographic phase technique. The oropharyngeal airway appears widely patent. The thyroid gland is heterogeneous. The salivary glands are normal in appearance. No cervical lymphadenopathy is seen. Skeletal structures: The skeletal structures are osteopenic. The calvarium appears intact. The cervical spine is maintained noting multilevel spondylosis. No lytic or blastic lesion is seen. Orbits: The bony orbits are intact. Orbital contents are normal as visualized noting bilateral ocular lens implants. Sinuses and mastoids: The paranasal sinuses are clear. There is trace right mastoid effusion. The left mastoid air cells are well pneumatized. IMPRESSION: 1. There is no hemorrhage, mass effect, or evidence of acute territorial ischemia by CT criteria. 2. Unremarkable CT angiogram of the brain. 3. Unremarkable CT angiogram of the neck. ACT 112: Negative or not required by law. Electronically signed by: Don Fallon M.D. 08/06/2022 11:11 PM Head CTA 08/06/22 22:[address] OF THE BRAIN; CT ANGIOGRAM OF THE BRAIN; CT ANGIOGRAM OF THE NECK CLINICAL HISTORY: Change in mental status. COMPARISON STUDY: CT of the brain dated 08/04/2022. MR angiogram of the brain dated 01/26/2012. TECHNIQUE: Unenhanced axial CT scan of the brain is performed. Subsequently, following the IV administration of 101 of Optiray 320, CT angiogram of the head and neck was performed from the aortic arch to the vertex. Images are reviewed in the axial, sagittal, and coronal planes. 3-D MIPS images are created and assessed. IV contrast was administered without complication. All measurements were calculated based on NASCET criteria. A dose lowering technique was utilized adhering to the principles of ALARA. CT DOSE: 1042.24 mGy.cm FINDINGS: Brain parenchyma: There is age related involutional change noting mild subcortical and periventricular microangiopathic disease. There is no hemorrhage, mass effect, or evidence of acute territorial ischemia by CT criteria. There is no evidence of enhancing mass lesion on the angiogram phase images. The ventricles, sulci, and cisterns are prominent secondary to i nvolutional change. Fajardo-white matter differentiation is preserved. No extra- axial fluid collection is seen. Thoracic aorta: There is atherosclerotic calcification of the thoracic aorta. Visualized portions of the thoracic aorta are normal in caliber. The aortic arch demonstrates standard 3-vessel anatomy. Right carotid arterial system: The right common carotid artery is widely patent, as are the right internal and external carotid arteries. Calcified plaque is seen in the carotid bulb. Left carotid arterial system: The left common carotid artery is widely patent, as are the left internal and external carotid arteries. Calcified plaque is noted in the carotid bulb. Vertebral arteries: The vertebral arteries are widely patent bilaterally and codominant. Subclavian arteries: Widely patent bilaterally. Intracranial vasculature: There is atherosclerotic calcification of the cavernous carotid and vertebral arteries. The internal carotid arteries are patent at the skull base, as are the anterior and middle cerebral arteries bilaterally. The vertebrobasilar system and posterior cerebral arteries are widely patent. There is origin of the right posterior cerebral artery. The vertebral arteries are codominant. There is no aneurysm, high-grade stenosis, or focal vessel cut off seen throughout the intracranial circulation. Jugular veins: Patent bilaterally. Dural sinuses: Patent. Lung apices: Emphysematous change is seen in the upper lobes. Upper lobe lung parenchyma is otherwise clear as visualized. Soft tissues: The visualized pharyngeal soft tissues are normal in appearance noting angiographic phase technique. The oropharyngeal airway appears widely patent. The thyroid gland is heterogeneous. The salivary glands are normal in appearance. No cervical lymphadenopathy is seen. Skeletal structures: The skeletal structures are osteopenic. The calvarium appears intact. The cervical spine is maintained noting multilevel spondylosis. No lytic or blastic lesion is seen. Orbits: The bony orbits are intact. Orbital contents are normal as visualized noting bilateral ocular lens implants. Sinuses and mastoids: The paranasal sinuses are clear. There is trace right mastoid effusion. The left mastoid air cells are well pneumatized. IMPRESSION: 1. There is no hemorrhage, mass effect, or evidence of acute territorial ischemia by CT criteria. 2. Unremarkable CT angiogram of the brain. 3. Unremarkable CT angiogram of the neck. ACT 112: Negative or not required by law. Electronically signed by: Don Fallon M.D. 08/06/2022 11:11 PM Neck CTA 08/06/22 22:[address] OF THE BRAIN; CT ANGIOGRAM OF THE BRAIN; CT ANGIOGRAM OF THE NECK CLINICAL HISTORY: Change in mental status. COMPARISON STUDY: CT of the brain dated 08/04/2022. MR angiogram of the brain dated 01/26/2012. TECHNIQUE: Unenhanced axial CT scan of the brain is performed. Subsequently, following the IV administration of 101 of Optiray 320, CT angiogram of the head and neck was performed from the aortic arch to the vertex. Images are reviewed in the axial, sagittal, and coronal planes. 3-D MIPS images are created and assessed. IV contrast was administered without complication. All measurements were calculated based on NASCET criteria. A dose lowering technique was utilized adhering to the principles of ALARA. CT DOSE: 1042.24 mGy.cm FINDINGS: Brain parenchyma: There is age related involutional change noting mild subco rtical and periventricular microangiopathic disease. There is no hemorrhage, mass effect, or evidence of acute territorial ischemia by CT criteria. There is no evidence of enhancing mass lesion on the angiogram phase images. The ventricles, sulci, and cisterns are prominent secondary to involutional change. Fajardo-white matter differentiation is preserved. No extra-axial fluid collection is seen. Thoracic aorta: There is atherosclerotic calcification of the thoracic aorta. Visualized portions of the thoracic aorta are normal in caliber. The aortic arch demonstrates standard 3-vessel anatomy. Right carotid arterial system: The right common carotid artery is widely patent, as are the right internal and external carotid arteries. Calcified plaque is seen in the carotid bulb. Left carotid arterial system: The left common carotid artery is widely patent, as are the left internal and external carotid arteries. Calcified plaque is noted in the carotid bulb. Vertebral arteries: The vertebral arteries are widely patent bilaterally and codominant. Subclavian arteries: Widely patent bilaterally. Intracranial vasculature: There is atherosclerotic calcification of the cavernous carotid and vertebral arteries. The internal carotid arteries are patent at the skull base, as are the anterior and middle cerebral arteries bilaterally. The vertebrobasilar system and posterior cerebral arteries are widely patent. There is origin of the right posterior cerebral artery. The vertebral arteries are codominant. There is no aneurysm, high-grade stenosis, or focal vessel cut off seen throughout the intracranial circulation. Jugular veins: Patent bilaterally. Dural sinuses: Patent. Lung apices: Emphysematous change is seen in the upper lobes. Upper lobe lung pa renchyma is otherwise clear as visualized. Soft tissues: The visualized pharyngeal soft tissues are normal in appearance noting angiographic phase technique. The oropharyngeal airway appears widely patent. The thyroid gland is heterogeneous. The salivary glands are normal in appearance. No cervical lymphadenopathy is seen. Skeletal structures: The skeletal structures are osteopenic. The calvarium appears intact. The cervical spine is maintained noting multilevel spondylosis. No lytic or blastic lesion is seen. Orbits: The bony orbits are intact. Orbital contents are normal as visualized noting bilateral ocular lens implants. Sinuses and mastoids: The paranasal sinuses are clear. There is trace right mastoid effusion. The left mastoid air cells are well pneumatized. IMPRESSION: 1. There is no hemorrhage, mass effect, or evidence of acute territorial ischemia by CT criteria. 2. Unremarkable CT angiogram of the brain. 3. Unremarkable CT angiogram of the neck. ACT 112: Negative or not required by law. Electronically signed by: Don Fallon M.D. 08/06/2022 11:11 PM Chest X-Ray 08/06/22 22:33 SINGLE VIEW CHEST CLINICAL HISTORY: Change in mental status. FINDINGS: An AP, portable, upright chest radiograph is compared to study dated 08/04/2022 and correlated with chest CT dated 09/28/2019. The patient is status post midline sternotomy. The heart is enlarged noting atherosclerotic calcification of the thoracic aorta. The pulmonary vasculature is noncongested. Emphysema and chronic interstitial thickening is similar to previous. Apical sca rring is observed. Airspace consolidation is seen at the left lung base. Small left pleural effusion is noted. Additional foci of parenchymal scarring are seen throughout both lungs. No pneumothorax is seen. The skeletal structures are osteopenic. The bony thorax is grossly intact. Arthritic change is noted in the shoulders and spine. IMPRESSION: 1. Cardiomegaly and emphysema without radiographic evidence of congestive failure. 2. Small left pleural effusion and left basilar consolidation. This is similar in appearance to the 08/04/2022 examination. ACT 112: Negative or not required by law. Electronically signed by: Don Fallon M.D. 08/06/2022 11:46 PM Discharge Plan Visit Data Chief Complaint: Altered Mental Status ED Provider: Santiago Botello Discharge Problem: Encephalopathy, Elevated troponin, Hypertension Forms Stand Alone Forms: [facility] Prescriptions Prescriptions: No Action aspirin [Lyly Low Dose Aspirin] 81 mg Tablet,Delayed Release (Dr/Ec) 81 mg PO DAILY docusate sodium 100 mg Capsule 100 mg PO BID furosemide 20 mg Tablet 20 mg PO DAILYBB cholecalciferol (vitamin D3) 1,000 unit Tablet 1,000 unit PO DAILY acetaminophen [Acetaminophen Extra Strength] 500 mg Tablet 500 mg PO Q4 MDD 3 GRAMS/24 HOURS PRN (Reason: Pain) ferrous sulfate 325 mg (65 mg iron) Tablet 325 mg PO TID sennosides 8.6 mg Tablet 8.6 mg PO DAILY PRN (Reason: Constipation) fexofenadine 180 mg Tablet 180 mg PO DAILY hydrocortisone 1 % Cream 1 applic TOPICAL DIRECTED PRN (Reason: Rash) Mucinex DM 30-600 mg Tablet Extended Release 12 Hr 1 tab PO Q12H PRN (Reason: Congestion) oxybutynin chloride 5 mg Tablet 5 mg PO DAILY alum-mag hydroxide-simeth [Antacid-Simethicone] 400-400-40 mg/5 mL Suspension 10 - 20 ml PO QID PRN (Reason: HEARTBURN/INDIGESTION/GAS) Rosemarie Protect(dimethicone-zinc) Cream 1 applic TOPICAL DAILY PRN (Reason: Skin Irritation) nitroglycerin [Nitrostat] 0.4 mg Tablet, Sublingual 0.4 mg sublingual UD PRN (Reason: chest pain) Qty: 25 2RF Rx Instructions: dissolve 1 tablet under tongue as needed , may repeat x 3 doses for chest pain atorvastatin 40 mg tablet 40 mg PO DAILY Qty: 30 5RF isosorbide mononitrate 30 mg Tablet Extended Release 24 Hr 30 mg PO QAM Qty: 30 0RF omeprazole 20 mg Capsule,Delayed Release(Dr/Ec) 20 mg PO DAILY Systane (PF) 0.4-0.3 % Dropperette 1 drp OPB BID amoxicillin 500 mg capsule 2,000 mg PO DAILY PRN (Reason: 1 hour prior to dental work) docosanol [Abreva] 10 % Cream 1 applic TOPICAL UD PRN (Reason: Cold Sores) Rx Instructions: may keep at bedside loperamide [Anti-Diarrheal (loperamide)] 2 mg Tablet 2 mg PO UD MDD 4 PRN (Reason: Diarrhea) Rx Instructions: take 2 tablets after 1st loose stool, then 1 tablet thereafter each loose stool max of 4 tabs in 24 hours nystatin 100,000 unit/gram Cream 1 applic TOPICAL BID PRN (Reason: fungus) trolamine salicylate [Aspercreme] 10 % Cream 1 applic TOPICAL QID PRN (Reason: Pain) Rx Instructions: may keep at bedside for independent use Metamucil [place] Powder 1 tbsp PO DAILY Rx Instructions: mix into 6-8 ounces of fluid and drink metoprolol succinate 50 mg Tablet Extended Release 24 Hr 50 mg PO DAILY Qty: 30 0RF lisinopril 10 mg Tablet 20 mg PO DAILY Qty: 60 0RF sertraline 50 mg tablet 25 mg PO QAM Qty: 30 0RF [facility] [place] -
[2022-08-07] MEDS ORDERED: ACETAMINOPHEN 325 MG TAB PO PRN (03:05)
[2022-08-07] MEDS ORDERED: PROMETHAZINE HCL 6.25 MG in SODIUM CHLORIDE 0.9% 50 ML IV PRN (03:05)
[2022-08-07 03:32] LABS: Basophils # (auto) 0.06 K/uL (0-0.2); Basophils % (auto) 0.7 %; Eosinophils # (auto) 0.49 K/uL (0-0.50); Eosinophils % (auto) 5.8 %; Hematocrit (blood only) 32.9 % (34.1-44.9); Hemoglobin 11.1 g/dl (12.0-16.0); Immature Granulocytes # (auto) 0.03 K/uL (0.00-0.02); Immature Granulocytes % (auto) 0.4 %; Lymphocytes # (auto) 1.25 K/uL (1.2-3.4); Lymphocytes % (auto) 14.7 %; Mean Corpuscular Hemoglobin 32.6 pg (25.0-34.0); Mean Corpuscular Hgb Conc 33.7 g/dL (32.0-36.0); Mean Corpuscular Volume 96.8 fL (80.0-100.0); Monocytes # (auto) 0.82 K/uL (0.24-0.82); Monocytes % (auto) 9.6 %; Neutrophils # (auto) 5.85 K/uL (1.4-6.5); Neutrophils % (auto) 68.8 %; Platelet Count 184 K/uL (130-400); RDW Coefficient of Variation 13.3 % (11.5-14.5); RDW Standard Deviation 47.6 fL (36.4-46.3)
[2022-08-07 03:57] LABS: BUN Creatinine Ratio 30.6 (10-20); Calcium 8.5 mg/dl (8.5-10.1); Creatinine Clr Calc Pharmacy 41.6 ml/min; Est GFR (African American) 60.5 ml/min; Est GFR (Non-African American) 52.2 ml/min; Potassium 3.6 mmol/L (3.5-5.1)
[2022-08-07] MEDS: ENOXAPARIN INJ 30 MG/0.3 ML SYR SQ SCH (08:22)
[2022-08-07] MEDS: FEXOFENADINE HCL 180 MG TAB PO SCH (08:23)
[2022-08-07] MEDS: ISOSORBIDE MONO EXTENDED REL 30 MG TABCR PO SCH (08:23)
[2022-08-07] MEDS: PSYLLIUM or GUAR GUM FIBER POWDER PACKET PO SCH (08:23)
[2022-08-07] MEDS: ATORVASTATIN 40 MG TAB PO SCH (08:23)
[2022-08-07] MEDS: lisinopril 10 MG TAB PO SCH (08:24)
[2022-08-07] MEDS: PANTOprazole 40 MG TAB PO SCH (08:24)
[2022-08-07] MEDS: ASPIRIN 81 MG ECTAB PO SCH (08:24)
[2022-08-07] MEDS: DOCUSATE SODIUM 100 MG CAP PO SCH ×2 (08:24→20:03)
[2022-08-07] MEDS: METOPROLOL SUCC 50MG EXT REL TAB PO SCH (08:24)
[2022-08-07] MEDS: ARTIFICIAL TEARS OP SCH ×2 (08:51→20:03)
[2022-08-07] MEDS: FERROUS SULFATE 325 MG TAB PO SCH ×3 (08:51→16:37)
[2022-08-07] MEDS ORDERED: OXYBUTYNIN CHLORIDE 5 MG TAB PO SCH (09:00)
[2022-08-07] MEDS ORDERED: INFLUENZA VACCINE HIGH DOSE PF 65+ 0.7 ML SYR IM ONE (09:00)
[2022-08-07] MEDS ORDERED: SERTRALINE HCL 50 MG TABLET PO SCH (09:00)
[2022-08-07] MEDS: AZTREONAM 1,000 MG in DEXTROSE 5% 100 ML IV SCH ×2 (09:42→17:50)
--- NOTE | 2022-08-07 10:40 | Cardiology Consultation ---
Date of Consultation August 07, 2022 Assessment & Plan (1) Encephalopathy: (2) Elevated troponin: (3) CKD (chronic kidney disease), stage III: (4) Chronic diastolic heart failure: (5) NSTEMI (non-ST elevated myocardial infarction): (6) S/P AVR: Plan The patient was transferred to [facility] for possible recurrent hypertensive urgency and worsening cognitive function She was significantly hypertensive upon presentation but now her blood pressure is very well controlled with only a slight increase of her lisinopril dose I initially ordered low-dose amlodipine to be added to her medical regimen but this will be held at this point No further medication changes at this time Continue to monitor on telemetry We will ask the primary team to clarify the patient's vitals from [facility] History of Present Illness Reason for Consultation: hypertensive urgency Requesting Physician: Dr. Stewart Attending Physician: Vincent Stewart MD History of Present Illness It was my pleasure to see Mrs. Dumas in cardiac consultation today August 07, 2022. She is a very pleasant but demented 87-year-old woman who was transferred to [facility] emergency department on 08/06/2022 from [facility] with reports of uncontrolled hypertension and increased confusion. The patient does not remember the events leading up to her transfer, history obtained through review of medical records and discussing in with nursing staff. The patient was reportedly found to be hypertensive at the alf with increased confusion. However, the patient's daughter states that the alf told her that the patient was actually hypotensive and that her normal antihypertensive medication was held. She was admitted to telemetry with the only change to her regimen of increasing her lisinopril dose to 30 mg daily and now her blood pressure is 107/55. Currently she denies any complaints. Cardiac hx: 1. 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 Angiographically normal coronary arteries 2007 3. Hypertension with chronic CKD stage III 4. Hyperlipidemia 5. Polymyalgia rheumatica with chronic anemia 6. Hospitalization 09/22/2019 with angina pectoris, congestive heart failure, troponin elevation consistent with non-ST segment elevation myocardial infarction with preserved LV function Allergies Allergy/AdvReac Type Severity Reaction Status Date / Time allopurinol Allergy Unknown ON [facility] 08/04/22 02:12 [facility] MED LIST Cephalosporins Allergy Unknown ON [place] Verified 08/04/22 02:12 [facility] MED LIST gramicidin D [From Neocidin] Allergy Unknown Redness of Verified 08/04/22 02:13 Skin neomycin [From Neocidin] Allergy Unknown Redness of Verified 08/04/22 02:13 Skin polymyxin B [From Neocidin] Allergy Unknown Redness of Verified 08/04/22 02:13 Skin Home Medications Medication Instructions Recorded Confirmed Type aspirin 81 mg tablet,delayed 81 mg PO DAILY 06/11/18 08/04/22 History release (Lyly Low Dose Aspirin) cholecalciferol (vitamin D3) 25 1,000 unit PO DAILY 06/11/18 08/04/22 History mcg (1,000 unit) tablet docusate sodium 100 mg capsule 100 mg PO BID 06/11/18 08/04/22 History furosemide 20 mg tablet 20 mg PO DAILYBB 06/11/18 08/04/22 History acetaminophen 500 mg tablet 500 mg PO Q4 PRN Pain 07/29/18 08/04/22 History (Acetaminophen Extra Strength) ferrous sulfate 325 mg (65 mg 325 mg PO TID 07/29/18 08/04/22 History iron) tablet aluminum-mag hydroxide-simethicone 10 - 20 ml PO QID PRN 09/27/19 08/04/22 History 400 mg-400 mg-40 mg/5 mL oral susp HEARTBURN/INDIGESTION/GAS (Antacid-Simethicone) dextromethorphan-guaifenesin 30 1 tab PO Q12H PRN Congestion 09/27/19 08/04/22 History mg-600 mg tablet extended [id number] hr (Mucinex DM) dimethicone-zinc oxide topical 1 applic topical DAILY PRN Skin 09/27/19 08/04/22 History cream (Rosemarie Protect Irritation (dimethicone-zinc oxide) topical cream) fexofenadine 180 mg tablet 180 mg PO DAILY 09/27/19 08/04/22 History hydrocortisone 1 % topical cream 1 applic topical DIRECTED PRN 09/27/19 08/04/22 History Rash oxybutynin chloride 5 mg tablet 5 mg PO DAILY 09/27/19 08/04/22 History sennosides 8.6 mg tablet 8.6 mg PO DAILY PRN Constipation 09/27/19 08/04/22 History atorvastatin 40 mg tablet 40 mg PO DAILY #30 tabs 10/01/19 08/04/22 Rx nitroglycerin 0.4 mg sublingual 0.4 mg sublingual UD PRN chest 10/01/19 08/04/22 Rx tablet (Nitrostat) pain #25 tabs isosorbide mononitrate 30 mg 30 mg PO QAM #30 tabs 10/27/19 08/04/22 Rx tablet,extended release 24 hr amoxicillin 500 mg capsule 2,000 mg PO DAILY PRN 1 hour prior 08/04/22 08/04/22 History to dental work docosanol 10 % topical cream 1 applic topical UD PRN Cold Sores 08/04/22 History (Abreva) loperamide 2 mg tablet 2 mg PO UD PRN Diarrhea 08/04/22 08/04/22 History (Anti-Diarrheal (loperamide)) nystatin 100,000 unit/gram topical 1 applic topical BID PRN fungus 08/04/22 08/04/22 History cream omeprazole 20 mg capsule,delayed 20 mg PO DAILY 08/04/22 08/04/22 History release peg 400-propylene glycol (PF) 0.4 1 drp OPB BID 08/04/22 08/04/22 History %-0.3 % eye drops in a dropperette (Systane (PF)) psyllium seed (sugar) oral powder 1 tbsp PO DAILY 08/04/22 08/04/22 History (Metamucil [place] oral powder) trolamine salicylate 10 % topical 1 applic topical QID PRN Pain 08/04/22 08/04/22 History cream (Aspercreme) lisinopril 10 mg tablet 20 mg PO DAILY #60 tabs 08/06/22 Rx metoprolol succinate 50 mg 50 mg PO DAILY #30 tabs 08/06/22 Rx tablet,extended release 24 hr sertraline 50 mg tablet 25 mg PO QAM #30 tabs 08/06/22 08/04/22 Rx Patient History Medical History Aortic valve stenosis Cervical cancer 1997--sx Chronic diastolic heart failure Chronic kidney disease, stage 3 (moderate) Diverticular disease Dyslipidemia Gout Gout History of colon polyps History of esophageal dilatation History of falling Hypertension NSTEMI (non-ST elevated myocardial infarction) 09/2019 Osteoarthritis Polymyalgia rheumatica Schatzki's ring Status post closed fracture of right femur Surgical History H/O aortic valve replacement 09/2007 @ [facility] [place] H/O cataract extraction H/O total hysterectomy History of breast biopsy History of cardiac cath 08/20/2007 History of cholecystectomy History of colonoscopy History of esophagogastroduodenoscopy (EGD) History of vein stripping x2 Family History Mother Rectal cancer Social History Smoking Status: Unknown if ever smoked Tobacco Type: Cigarettes Second Hand Exposure: No; Hx Alcohol Use: No Hx Substance Use: No Preferred Language: Kyrgyz Communication Ability: Impaired Outside Sales Required: No Beliefs That Will Affect Care: None Current Living Situation: Personal Care Facility Current Living Situation Comment: [facility] current occupational status: retired Other Information That Helps Us Care for You: No Feels Safe at Home: Yes Safety Concerns: Feels Safe At This Time Assistive Devices: Walker Review of Systems Review of Systems: Unobtainable due to cognitive status Physical Exam Physical Exam: General: Awake, alert and oriented to self only. No acute distress. HEENT: Normocephalic, atraumatic. Pupils equal, round and reactive to light and accommodation. Extraocular muscles are intact. Anicteric sclera. Moist mucous membranes. Neck: No JVD. No bruit. Cardiovascular: Regular. Positive S-4. Normal S-1 and S-2. No S-3. 3/6 mid to late systolic ejection murmur, greatest at the right sternal border, second intercostal space with radiation to the bilateral carotids. No rubs. Pulmonary: Clear to auscultation bilaterally. No rales, rhonchi, or wheezing. Abdomen: Bowel sounds x 4, soft. No rebound, guarding or tenderness. No organomegaly. Extremities: No clubbing, cyanosis or edema. +2 pedal pulses bilaterally. Skin: Warm and dry. Results & Data ([facility]) Vital Signs (Past 12 Hours) Vital Signs Temp Pulse Pulse Resp BP BP Pulse Ox 08/07/22 10:08 55 L 08/07/22 08:00 08/07/22 08:17 36.7 C 69 18 157/89 H 97 08/07/22 04:24 64 08/07/22 02:45 08/07/22 02:45 36.6 C 72 18 164/65 H 96 08/07/22 02:00 66 16 97 08/07/22 02:00 145/61 H 08/07/22 01:30 70 19 99 08/07/22 01:30 168/65 H 08/07/22 01:00 70 16 95 08/07/22 01:00 188/78 H 08/07/22 00:30 65 15 96 08/07/22 00:30 196/71 H 08/07/22 00:01 72 20 100 08/07/22 00:01 177/89 H 08/07/22 00:00 70 17 100 08/06/22 23:30 71 18 96 08/06/22 23:30 211/87 H 08/06/22 23:00 67 15 193/104 H 96 O2 Del Method 08/07/22 10:08 08/07/22 08:00 Room Air 08/07/22 08:17 Room Air 08/07/22 04:24 08/07/22 02:45 Room Air 08/07/22 02:45 Room Air 08/07/22 02:00 08/07/22 02:00 08/07/22 01:30 08/07/22 01:30 08/07/22 01:00 08/07/22 01:00 08/07/22 00:30 08/07/22 00:30 08/07/22 00:01 08/07/22 00:01 08/07/22 00:00 08/06/22 23:30 08/06/22 23:30 08/06/22 23:00
[2022-08-07] MEDS ORDERED: amLODIPine BESYLATE 5 MG TAB PO ONE (10:45)
--- NOTE | 2022-08-07 15:11 | Hospitalist Progress Note ---
Date of Service August 07, 2022 Assessment & Plan (1) Encephalopathy: Plan: Acute metabolic encephalopathy DD: Hypertensive encephalopathy, R/O infection ? Due to Meds --CT head, CTA Head/Neck:There is no hemorrhage, mass effect, or evidence of acute territorial ischemia by CT criteria. Unremarkable CT angiogram of the brain. Unremarkable CT angiogram of the neck. Sertraline dose decreased to 12.5 mg daily Hold oxybutynin Reorient frequently to minimize delirium Consider MRI Brain if needed Hypertensive Urgency Likely Type II UT due to Hypertension Continue lisinopril, metoprolol, isosorbide Lasix held for now Appreciate cardiology input Monitor BP Adjust medications as needed Abnormal urinalysis Urine culture pending On Azactam empirically Prediabetes HbA1c 5.7 Left renal lesion Incidental finding on prior CT --CT ABD:No acute process within the abdomen or pelvis. 1.4 cm left mid pole renal lesion. This could reflect a small solid renal lesion or a complex cyst. Nonemergent renal protocol CT could be obtained for further evaluation. Small left and trace right pleural effusions. -Discussed with patient's daughter over the phone on 08/04/22: Patient and daughter prefers no further investigations given her age. CAD S/P stent Aortic stenosis S/P bioprosthetic AVR Hyperlipidemia Continue aspirin, statin, isosorbide, metoprolol, lisinopril Overactive bladder On oxybutynin Bladder scan as needed to monitor for any retention PMR Cervical cancer S/P surgery Chronic anemia Mood disorder Continue Zoloft at reduced dose DVT Px: Lovenox SQ Code Status DNR/DNI Disposition SNF as able Admission and Anticipated Discharge Date Admission Date: August 07, 2022 Subjective Patient is seen and examined at bedside She is anxious about losing her glasses this morning Reports intermittent palpitations Denies any chest pain, shortness of breath, dizziness, nausea, abdominal pain Discussed with patient's daughter at bedside Review of Systems Review of Systems: All systems reviewed & are unremarkable except as noted in Subjective Physical Exam Physical Exam: Physical Exam: Vitals signs as noted above General Appearance:Moderately built and nourished, no apparent distress, Elderly Head: normocephalic, Atraumatic Eyes: normal inspection, EOMI Neck: supple, Trachea midline Respiratory/Chest: Decreased breath sounds, CTA, No accessory muscle use Cardiovascular: S1, S2, + murmur Abdomen/GI:Soft, Non tender, Bowel sounds present Extremities/Musculoskeletal:normal inspection, no edema Neurologic/Psych:AAOX2, grossly no focal neurological deficits Skin: normal color, warm Results & Data Results & Data ([facility]) Vital Signs (Past 12 Hours) Vital Signs Temp Pulse Pulse Resp BP Pulse Ox O2 Del Method 08/07/22 11:51 36.8 C 57 L 18 107/55 L 94 Room Air 08/07/22 10:08 55 L 08/07/22 08:00 Room Air 08/07/22 08:17 36.7 C 69 18 157/89 H 97 Room Air 08/07/22 04:24 64 Laboratory Results Short CBC 08/06/22 08/07/22 Range/Units Unknown 03:22 WBC 7.84 8.50 (4.8-10.8) K/ul Hgb 11.2 L 11.1 L (12.0-16.0) g/dl Hct 33.6 L 32.9 L (34.1-44.9) % Plt Count 209 184 (130-400) K/uL BMP 08/06/22 08/07/22 Unknown 03:22 Sodium 135 L 135 L Potassium 3.8 3.6 Chloride 103 105 Carbon Dioxide 24 24 BUN 33 H 30 H Creatinine 1.15 0.98 Glucose 90 89 Calcium 9.0 8.5 Liver Function 08/06/22 Range/Units Unknown Total Bilirubin 1.8 H (0.2-1.0) mg/dl AST 19 (13-39) U/L ALT 13 (7-52) U/L Alkaline Phosphatase 70 (34-104) U/L Albumin 3.7 (3.4-5.0) gm/dl Urine 08/06/22 Range/Units Unknown Urine Color Yellow Urine Appearance Cloudy A (Clear) Urine pH 6.0 (4.5-7.5) Ur Specific [place] 1.017 (1.000-1.030) Urine Protein 2+ H (Negative) Urine Glucose (UA) Negative (Negative)
--- NOTE | 2022-08-07 21:59 | Electrocardiogram Report ---
Test Reason : Blood Pressure : / mmHG Vent. Rate : 066 BPM Atrial Rate : 063 BPM P-R Int : 184 ms QRS Dur : 090 ms QT Int : 460 ms P-R-T Axes : 000 073 075 degrees QTc Int : 482 ms Poor data quality, interpretation may be adversely affected Sinus rhythm with Premature atrial complexes Prolonged QT Abnormal ECG When compared with ECG of 04-AUG-2022 01:36, Criteria for Inferior infarct are no longer Present ST no longer depressed in Lateral leads T wave inversion no longer evident in Inferior leads Confirmed by Giles Cobos ([id number]) on 08/07/2022 9:58:37 PM Referred By: REFERRED SELF Confirmed By:Giles Cobos
[2022-08-08] MEDS: AZTREONAM 1,000 MG in DEXTROSE 5% 100 ML IV SCH ×3 (01:20→17:23)
--- NOTE | 2022-08-08 05:55 | Electrocardiogram Report ---
Test Reason : Blood Pressure : / mmHG Vent. Rate : 056 BPM Atrial Rate : 056 BPM P-R Int : 190 ms QRS Dur : 086 ms QT Int : 502 ms P-R-T Axes : 057 052 043 degrees QTc Int : 484 ms Poor data quality, interpretation may be adversely affected Sinus bradycardia with Premature ventricular complexes Possible Inferior infarct , age undetermined Prolonged QT Abnormal ECG When compared with ECG of 06-AUG-2022 22:14, Premature ventricular complexes are now Present Confirmed by Giles Cobos ([id number]) on 08/08/2022 5:54:43 AM Referred By: REFERRED SELF Confirmed By:Giles Cobos
[2022-08-08] MEDS: ARTIFICIAL TEARS OP SCH ×2 (07:35→19:55)
[2022-08-08] MEDS: FEXOFENADINE HCL 180 MG TAB PO SCH (07:36)
[2022-08-08] MEDS: DOCUSATE SODIUM 100 MG CAP PO SCH ×2 (07:36→19:54)
[2022-08-08] MEDS: ATORVASTATIN 40 MG TAB PO SCH (07:36)
[2022-08-08] MEDS: PANTOprazole 40 MG TAB PO SCH (07:37)
[2022-08-08] MEDS: FERROUS SULFATE 325 MG TAB PO SCH ×3 (07:37→16:48)
[2022-08-08] MEDS: METOPROLOL SUCC 50MG EXT REL TAB PO SCH (07:37)
[2022-08-08] MEDS: ISOSORBIDE MONO EXTENDED REL 30 MG TABCR PO SCH (07:38)
[2022-08-08] MEDS: ASPIRIN 81 MG ECTAB PO SCH (07:39)
[2022-08-08] MEDS: lisinopril 10 MG TAB PO SCH (07:39)
[2022-08-08] MEDS: PSYLLIUM or GUAR GUM FIBER POWDER PACKET PO SCH (07:40)
[2022-08-08] MEDS: ENOXAPARIN INJ 30 MG/0.3 ML SYR SQ SCH (07:40)
[2022-08-08] MEDS ORDERED: SERTRALINE HCL 50 MG TABLET PO SCH (09:00)
--- NOTE | 2022-08-08 09:07 | Cardiology Progress Note ---
Date of Service August 08, 2022 Assessment & Plan (1) Encephalopathy: (2) Elevated troponin: (3) CKD (chronic kidney disease), stage III: (4) Chronic diastolic heart failure: (5) NSTEMI (non-ST elevated myocardial infarction): (6) S/P AVR: Plan This is an unfortunate 87-year-old female whom I have cared for in my clinic for several years. Currently she is confused but appears to be comfortable. I agree with the current management. Admission and Anticipated Discharge Date Admission Date: August 07, 2022 Subjective The patient is confused and has a one-to-one sitter. Review of Systems Review of Systems: Unobtainable Physical Exam Physical Exam: General: Confused, no acute distress Head: normocephalic, no masses, lesions, tenderness or abnormalities Eyes: conjunctiva are pink and non-injected, sclera clear Neck: supple, no adenopathy, no bruits, normal jugular venous pulse, no hepatojugular reflux Chest: normal shape and normal respiratory effort Lungs: clear to auscultation and percussion Cardiac Exam: - regular rate & rhythm, no murmurs gallops or rubs - normal S1, normal S2 Pulses: 2(+) throughout Abdomen: abdomen soft, non-tender, no abnormal masses and no hepatosplenomegaly Musculoskeletal: no gait disturbance, no joint inflammation, no deforming arthritis Extremities: no edema and no cyanosis Neuro: grossly normal exam Results & Data ([facility]) Vital Signs (Past 12 Hours) Vital Signs Temp Pulse Pulse Resp BP Pulse Ox O2 Del Method 08/08/22 03:18 36.8 C 65 18 150/66 H 98 Room Air 08/08/22 00:00 71 08/07/22 23:08 36.9 C 60 18 133/68 95 Room Air Laboratory Results Laboratory Results - last 24 hr 08/07/22 10:00 Troponin I High Sens 120.0 H* D Medications Administered Current Inpatient Medications Acetaminophen (Acetaminophen 325 Mg Tab) 650 mg PO Q4H PRN PRN Reason: Pain or Fever Stop: 09/06/22 03:04 Artificial Tears (Artificial Tears) 1 drops OP BID [facility] Stop: 09/06/22 08:59 Last Admin: 08/08/22 07:35 Dose: 1 drops Aspirin (Aspirin 81 Mg Ectab) 81 mg PO DAILY [facility] Stop: 09/06/22 08:59 Last Admin: 08/08/22 07:39 Dose: 81 mg Atorvastatin Calcium (Atorvastatin 40 Mg Tab) 40 mg PO DAILY [facility] Stop: 09/06/22 08:59 Last Admin: 08/08/22 07:36 Dose: 40 mg Docusate Sodium (Docusate Sodium 100 Mg Cap) 100 mg PO BID [facility] Stop: 09/06/22 08:59 Last Admin: 08/08/22 07:36 Dose: 100 mg Enoxaparin Sodium (Enoxaparin Inj 30 Mg/0.3 Ml Syr) 30 mg SQ QAM [facility] Stop: 09/06/22 08:59 Last Admin: 08/08/22 07:40 Dose: 30 mg Ferrous Sulfate (Ferrous Sulfate 325 Mg Tab) 325 mg PO TIDM [facility] Stop: 09/06/22 07:59 Last Admin: 08/08/22 07:37 Dose: 325 mg Fexofenadine HCl (Fexofenadine Hcl 180 Mg Tab) 180 mg PO DAILY [facility] Stop: 09/06/22 08:59 Last Admin: 08/08/22 07:36 Dose: 180 mg Aztreonam 1,000 mg/ Dextrose 110 mls @ 100 mls/hr IV Q8H [facility]; Protocol Stop: 08/17/22 09:59 Last Admin: 08/08/22 09:04 Dose: 100 mls/hr Promethazine HCl 6.25 mg/ (Sodium Chloride) 50.25 mls @ 201 mls/hr IV Q6H PRN PRN Reason: Nausea And Vomiting Stop: 09/06/22 03:04 Isosorbide Mononitrate (Isosorbide [place] Extended Rel 30 Mg Tabcr) 30 mg PO QAM [facility] Stop: 09/06/22 08:59 Last Admin: 08/08/22 07:38 Dose: 30 mg Lisinopril (Lisinopril 10 Mg Tab) 30 mg PO DAILY [facility] Stop: 09/06/22 08:59 Last Admin: 08/08/22 07:39 Dose: 30 mg Metoprolol Succinate (Metoprolol Succ 50mg Ext Rel Tab) 50 mg PO DAILY [facility] Stop: 09/06/22 08:59 Last Admin: 08/08/22 07:37 Dose: 50 mg Oxybutynin Chloride (Oxybutynin Chloride 5 Mg Tab) 5 mg PO DAILY [facility] Stop: 09/06/22 08:59 Last Admin: 08/07/22 08:23 Dose: 5 mg Pantoprazole Sodium (Pantoprazole 40 Mg Tab) 40 mg PO DAILY [facility] Stop: 09/06/22 08:59 Last Admin: 08/08/22 07:37 Dose: 40 mg Psyllium Hydrophilic Mucilloid (Psyllium Or Guar Gum Fiber Powder Packet) 1 pkt PO DAILY [facility] Stop: 09/06/22 08:59 Last Admin: 08/08/22 07:40 Dose: 1 pkt Sennosides (Senna 8.6 Mg Tab) 8.6 mg PO DAILY PRN PRN Reason: Constipation Stop: 09/06/22 01:56 Sertraline HCl (Sertraline Hcl 50 Mg Tablet) 12.5 mg PO QAM [facility] Stop: 09/07/22 08:59 Last Admin: 08/08/22 07:37 Dose: 12.5 mg
--- NOTE | 2022-08-08 17:20 | Hospitalist Progress Note ---
Date of Service August 08, 2022 Assessment & Plan (1) Encephalopathy: Plan: Acute metabolic encephalopathy DD: Hypertensive encephalopathy, R/O infection ? Due to Meds --CT head, CTA Head/Neck:There is no hemorrhage, mass effect, or evidence of acute territorial ischemia by CT criteria. Unremarkable CT angiogram of the brain. Unremarkable CT angiogram of the neck. Hold Zoloft, oxybutynin Reorient frequently to minimize delirium Remains intermittently confused MRI brain pending Check vitamin B12, ammonia levels Consider Neurology eval Hypertensive Urgency Likely Type II [place] due to Hypertension Continue lisinopril, metoprolol, isosorbide Lasix held for now Appreciate cardiology input Monitor BP Adjust medications as needed Abnormal urinalysis Urine culture: Mixed gayatri On Azactam empirically Prediabetes HbA1c 5.7 Left renal lesion Incidental finding on prior CT --CT ABD:No acute process within the abdomen or pelvis. 1.4 cm left mid pole renal lesion. This could reflect a small solid renal lesion or a complex cyst. Nonemergent renal protocol CT could be obtained for further evaluation. Small left and trace right pleural effusions. -Discussed with patient's daughter over the phone on 08/04/22: Patient and daughter prefers no further investigations given her age. CAD S/P stent Aortic stenosis S/P bioprosthetic AVR Hyperlipidemia Continue aspirin, statin, isosorbide, metoprolol, lisinopril Overactive bladder oxybutynin held Bladder scan as needed to monitor for any retention PMR Cervical cancer S/P surgery Chronic anemia Mood disorder DVT Px: Lovenox SQ Code Status DNR/DNI Disposition SNF as able Admission and Anticipated Discharge Date Admission Date: August 07, 2022 Subjective Patient is seen and examined at bedside Intermittently confused Discussed with patient's daughter at bedside Denies any chest pain, shortness of breath, dizziness, nausea, abdominal pain Review of Systems Review of Systems: All systems reviewed & are unremarkable except as noted in Subjective Physical Exam Physical Exam: Physical Exam: Vitals signs as noted above General Appearance:Moderately built and nourished, no apparent distress, Elderly Head: normocephalic, Atraumatic Eyes: normal inspection, EOMI Neck: supple, Trachea midline Respiratory/Chest: Decreased breath sounds, CTA, No accessory muscle use Cardiovascular: S1, S2, + murmur Abdomen/GI:Soft, Non tender, Bowel sounds present Extremities/Musculoskeletal:normal inspection, no edema Neurologic/Psych:AAOX2, grossly no focal neurological deficits Skin: normal color, warm Results & Data Results & Data ([facility]) Vital Signs (Past 12 Hours) Vital Signs Temp Pulse Pulse Resp BP Pulse Ox O2 Del Method 08/08/22 15:52 36.9 C 58 L 18 146/73 H 99 Room Air 08/08/22 11:44 36.6 C 60 18 164/71 H 99 Room Air 08/08/22 07:45 36.8 C 67 20 151/70 H 97 Room Air 08/08/22 08:00 82 08/08/22 08:00 Room Air
[2022-08-08] MEDS ORDERED: GADOBUTROL 65ML VIAL IV ONE (19:09)
--- NOTE | 2022-08-08 19:55 | Magnetic Resonance Report ---
MRI OF THE BRAIN COMBO CLINICAL HISTORY: Change in mental status. COMPARISON STUDY: CT of the brain dated 08/06/2022. MRI of the brain dated 01/26/2012. TECHNIQUE: MRI of the brain was performed utilizing various T1 and T2-weighted sequences in the axial , sagittal, and coronal planes. Contrast-enhanced sequences were acquired following the administratio n of 6.7 cc of Gadavist. FINDINGS: Brain parenchyma: There is age related involutional change noting mild to moderate subcortical and pe riventricular microangiopathic disease. There is no hemorrhage or mass effect. There is no restricted diffusion to suggest acute ischemia. A 7 mm enhancing extra-axial nodule in the posterior fossa ana cent to the basilar artery on axial image #7 is typical for a meningioma. This is unchanged from prio r examinations. No additional enhancing lesion is identified on the postcontrast images. Fajardo-white m atter differentiation is preserved. Chronic lacunar infarct is noted in the right thalamus. There are scattered foci of blooming artifact on the T2* series. No extra-axial fluid collection is seen. The cerebellar tonsils are normal in configuration. Ventricles, sulci, and cisterns: Prominent secondary to involutional change. Pituitary and sella: Partially sella is incidentally noted. Intracranial vasculature: Normal flow voids are maintained at the skull base. Orbits: The bony orbits are grossly intact. Orbital contents are normal in appearance noting bilatera l ocular lens implants. Sinuses and mastoids: There is mucosal thickening in the right frontal sinus. The remaining paranasal sinuses are clear. A right mastoid effusion is observed. Calvarium: Unremarkable. Cervical cord: Partially visualized cervical spinal cord is normal in morphology and signal intensity . IMPRESSION: 1. No acute intracranial abnormality. 2. There are scattered foci of blooming artifact on the T2* series suggesting hemosiderin deposition. This is of indeterminate significance and early amyloid could potentially have this appearance. Clin ical correlation will be required. ACT 112: Negative or not required by law. Electronically signed by: Don Fallon M.D. 08/08/2022 7:53 PM
[2022-08-09] MEDS: AZTREONAM 1,000 MG in DEXTROSE 5% 100 ML IV SCH ×2 (03:04→09:57)
[2022-08-09 06:41] LABS: Base Excess VBG -3.6 mEq/L; HCO3 VBG 21 mmol/L; Oxygen Saturation VBG 98.4 %; PCO2 VBG 34 mmHg (38-50); PO2 VBG 77 mmHg; pH VBG 7.39 (7.36-7.41)
[2022-08-09] MEDS: PSYLLIUM or GUAR GUM FIBER POWDER PACKET PO SCH (08:04)
[2022-08-09] MEDS: ASPIRIN 81 MG ECTAB PO SCH (08:05)
[2022-08-09] MEDS: DOCUSATE SODIUM 100 MG CAP PO SCH (08:05)
[2022-08-09] MEDS: FERROUS SULFATE 325 MG TAB PO SCH ×2 (08:05→11:25)
[2022-08-09] MEDS: ARTIFICIAL TEARS OP SCH (08:06)
[2022-08-09] MEDS: METOPROLOL SUCC 50MG EXT REL TAB PO SCH (08:06)
[2022-08-09] MEDS: PANTOprazole 40 MG TAB PO SCH (08:07)
[2022-08-09] MEDS: ATORVASTATIN 40 MG TAB PO SCH (08:07)
[2022-08-09] MEDS: ISOSORBIDE MONO EXTENDED REL 30 MG TABCR PO SCH (08:08)
[2022-08-09] MEDS: ENOXAPARIN INJ 30 MG/0.3 ML SYR SQ SCH (08:08)
[2022-08-09] MEDS: lisinopril 10 MG TAB PO SCH (08:08)
[2022-08-09] MEDS ORDERED: CYANOCOBALAMIN (B-12) 500 MCG TABLET PO SCH (09:00)
--- NOTE | 2022-08-09 13:03 | Hospitalist Progress Note ---
Date of Service August 09, 2022 Assessment & Plan (1) Encephalopathy: Plan: Acute metabolic encephalopathy DD: Hypertensive encephalopathy, R/O infection ? Due to Meds --CT head, CTA Head/Neck:There is no hemorrhage, mass effect, or evidence of acute territorial ischemia by CT criteria. Unremarkable CT angiogram of the brain. Unremarkable CT angiogram of the neck. --MRI Brain:No acute intracranial abnormality. There are scattered foci of blooming artifact on the T2* series suggesting hemosiderin deposition. This is of indeterminate significance and early amyloid could potentially have this appearance. Clinical correlation will be required. Zoloft, oxybutynin discontinued Minimally low vitamin B12 levels Normal ammonia levels Mental status back to baseline Discussed with neurologist on-call: Reviewed the chart, MRI--suggested to replace vitamin B12, no further investigations needed. Agrees with holding off any sedating meds. Hypertensive Urgency Likely Type II [place] due to Hypertension Continue lisinopril, metoprolol, isosorbide Appreciate cardiology input Monitor BP BP variable Abnormal urinalysis Urine culture: Mixed gayatri received On Azactam empirically Prediabetes HbA1c 5.7 Left renal lesion Incidental finding on prior CT --CT ABD:No acute process within the abdomen or pelvis. 1.4 cm left mid pole renal lesion. This could reflect a small solid renal lesion or a complex cyst. Nonemergent renal protocol CT could be obtained for further evaluation. Small left and trace right pleural effusions. -Discussed with patient's daughter over the phone on 08/04/22: Patient and daughter prefers no further investigations given her age. CAD S/P stent Aortic stenosis S/P bioprosthetic AVR Hyperlipidemia Continue aspirin, statin, isosorbide, metoprolol, lisinopril PMR Cervical cancer S/P surgery Chronic anemia Mood disorder DVT Px: Lovenox SQ Code Status DNR/DNI Disposition SNF as able Admission and Anticipated Discharge Date Admission Date: August 07, 2022 Subjective Patient is seen and examined at bedside Feels much better today Confusion seemed to have resolved Discussed with patient's daughter at bedside Denies any chest pain, shortness of breath, dizziness, nausea, abdominal pain Also discussed with Neurologist percussion instrument repairer Review of Systems Review of Systems: All systems reviewed & are unremarkable except as noted in Subjective Physical Exam Physical Exam: Physical Exam: Vitals signs as noted above General Appearance:Moderately built and nourished, no apparent distress, Elderly Head: normocephalic, Atraumatic Eyes: normal inspection, EOMI Neck: supple, Trachea midline Respiratory/Chest: Decreased breath sounds, CTA, No accessory muscle use Cardiovascular: S1, S2, + murmur Abdomen/GI:Soft, Non tender, Bowel sounds present Extremities/Musculoskeletal:normal inspection, no edema Neurologic/Psych:AAOX2, grossly no focal neurological deficits Skin: normal color, warm Results & Data Results & Data ([facility]) Vital Signs (Past 12 Hours) Vital Signs Temp Pulse Pulse Resp BP Pulse Ox O2 Del Method 08/09/22 12:00 36.8 C 74 18 109/66 97 Room Air 08/09/22 08:00 63 08/09/22 09:46 112/58 L 08/09/22 07:56 37.1 C 72 18 187/67 H 95 Room Air 08/09/22 03:21 36.9 C 69 20 156/67 H 97 Room Air 08/09/22 02:00 57 L
--- NOTE | 2022-08-09 13:51 | Discharge Summary ---
Date of Service August 09, 2022 Admission HPI Per Admitting Provider History obtained from patient, personal usp staff , and records. Limited history from patient secondary to confused state. Medical history significant for CAD status post stent, aortic stenosis status post bioprosthetic AVR, hypertension, hyperlipidemia, PMR, cervical cancer status post surgery, chronic anemia (baseline hemoglobin 9-10), prediabetes, mood disorder. Recent confinement August 04 to 2022 for metabolic encephalopathy attributed to uncontrolled hypertension and electrolyte abnormalities. Patient home Toprol XL and lisinopril doses increased on discharge yesterday. As per [facility] staff, patient looked tired upon return to personal usp yesterday. Patient later noted to be more confused than usual. Patient unable to answer questions regarding headache, chest pain, shortness of breath, abdominal pain, dysuria. 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 Admission Exam Per Admitting Provider GENERAL: Disoriented, slightly anxious, repetitive eye blinking, repetitively uttering 'my name is Batsheva', no respiratory distress SKIN: Pallor, warm HEENT: Pale palpebral conjunctivae, no ptosis, dry buccal mucosa NECK : Supple, no tenderness CHEST : CTA, no tenderness HEART : RRR, no obvious murmurs ABDOMEN: Some distention, nontender EXTREMITIES : No LE swelling/tenderness, no other conspicuous deformities noted NEUROLOGIC : Disoriented, no facial asymmetry, gait and stance not assessed Principal Diagnosis Acute metabolic encephalopathy Hypertensive Urgency Discharge Data Allergies Allergy/AdvReac Type Severity Reaction Status Date / Time allopurinol Allergy Unknown ON CENTER POINT Verified 08/04/22 02:12 [place] MED LIST Cephalosporins Allergy Unknown ON CENTER POINT Verified 08/04/22 02:12 [place] MED LIST gramicidin D [From Neocidin] Allergy Unknown Redness of Verified 08/04/22 02:13 Skin neomycin [From Neocidin] Allergy Unknown Redness of Verified 08/04/22 02:13 Skin polymyxin B [From Neocidin] Allergy Unknown Redness of Verified 08/04/22 02:13 Skin Consultations 08/07/22 00:57 ED Decision to Admit Stat 08/07/22 08:06 Consult Cardiology Routine Procedures Performed Laboratory Results WBC 8.50 K/ul (4.8-10.8) 08/07/22 03:22 RBC 3.40 M/uL (3.93-5.22) L 08/07/22 03:22 Hgb 11.1 g/dl (12.0-16.0) L 08/07/22 03:22 Hct 32.9 % (34.1-44.9) L 08/07/22 03:22 MCV 96.8 fL (80.0-100.0) 08/07/22 03:22 MCH 32.6 pg (25.0-34.0) 08/07/22 03:22 MCHC 33.7 g/dL (32.0-36.0) 08/07/22 03:22 RDW Std Deviation 47.6 fL (36.4-46.3) H 08/07/22 03:22 RDW Coeff of Jimmie 13.3 % (11.5-14.5) 08/07/22 03:22 Plt Count 184 K/uL (130-400) 08/07/22 03:22 MPV 10.0 fL (9.4-12.3) 08/07/22 03:22 Immature Gran % (Auto) 0.4 % 08/07/22 03:22 Neut % (Auto) 68.8 % 08/07/22 03:22 Lymph % (Auto) 14.7 % 08/07/22 03:22 [place] % (Auto) 9.6 % 08/07/22 03:22 Eos % (Auto) 5.8 % 08/07/22 03:22 Baso % (Auto) 0.7 % 08/07/22 03:22 Neut # (Auto) 5.85 K/uL (1.4-6.5) 08/07/22 03:22 Lymph # (Auto) 1.25 K/uL (1.2-3.4) 08/07/22 03:22 [place] # (Auto) 0.82 K/uL (0.24-0.82) 08/07/22 03:22 Eos # (Auto) 0.49 K/uL (0-0.50) 08/07/22 03:22 Baso # (Auto) 0.06 K/uL (0-0.2) 08/07/22 03:22 Immature Gran # (Auto) 0.03 K/uL (0.00-0.02) H 08/07/22 03:22 VBG pH 7.39 (7.36-7.41) 08/09/22 06:23 VBG pCO2 34 mmHg (38-50) L 08/09/22 06:23 VBG pO2 77 mmHg 08/09/22 06:23 VBG HCO3 21 mmol/L 08/09/22 06:23 VBG O2 Saturation 98.4 % 08/09/22 06:23 VBG Base Excess -3.6 mEq/L 08/09/22 06:23 Sodium 135 mmol/L (136-145) L 08/07/22 03:22 Potassium 3.6 mmol/L (3.5-5.1) 08/07/22 03:22 Chloride 105 mmol/L (98-107) 08/07/22 03:22 Carbon Dioxide 24 mmol/L (21-32) 08/07/22 03:22 Anion Gap 6 (3-11) 08/07/22 03:22 BUN 30 mg/dl (6-23) H 08/07/22 03:22 Creatinine 0.98 mg/dl (0.6-1.2) 08/07/22 03:22 Est Cr Clr Drug Dosing 41.6 ml/min 08/07/22 03:22 Est GFR ( Amer) 60.5 ml/min 08/07/22 03:22 Est GFR (Non-Af Amer) 52.2 ml/min 08/07/22 03:22 BUN/Creatinine Ratio 30.6 (10-20) H 08/07/22 03:22 Glucose 89 mg/dl (70-99(Fasting)) 08/07/22 03:22 POC Glucose 86 mg/dl (70-99) 08/06/22 22:35 Calcium 8.5 mg/dl (8.5-10.1) 08/07/22 03:22 Phosphorus 2.9 mg/dl (2.5-4.9) 08/06/22 Unknown Magnesium 1.9 mg/dl (1.7-2.4) 08/06/22 Unknown Total Bilirubin 1.8 mg/dl (0.2-1.0) H 08/06/22 Unknown AST 19 U/L (13-39) 08/06/22 Unknown ALT 13 U/L (7-52) 08/06/22 Unknown Alkaline Phosphatase 70 U/L (34-104) 08/06/22 Unknown Ammonia 36.0 umol/L (18-72) 08/09/22 06:23 Troponin I High Sens 120.0 pg/ml (0-14) H* D 08/07/22 10:00 Total Protein 6.3 gm/dl (6.0-8.3) 08/06/22 Unknown Albumin 3.7 gm/dl (3.4-5.0) 08/06/22 Unknown Globulin 2.6 gm/dl (2.5-4.0) 08/06/22 Unknown Albumin/Globulin Ratio 1.4 (0.9-2) 08/06/22 Unknown Vitamin B12 169 pg/ml (180-914) L 08/09/22 06:24 TSH 2.759 uIu/ml (0.300-4.500) 08/06/22 Unknown Urine Color Yellow 08/06/22 Unknown Urine Appearance Cloudy (Clear) A 08/06/22 Unknown Urine pH 6.0 (4.5-7.5) 08/06/22 Unknown Ur Specific [place] 1.017 (1.000-1.030) 08/06/22 Unknown Urine Protein 2+ (Negative) H 08/06/22 Unknown Urine Glucose (UA) Negative (Negative) 08/06/22 Unknown Urine Ketones Trace (Negative) H 08/06/22 Unknown Urine Blood Negative (Negative) 08/06/22 Unknown Urine Nitrite Negative (Negative) 08/06/22 Unknown Urine Bilirubin Negative (Negative) 08/06/22 Unknown Urine Urobilinogen Negative (Negative) 08/06/22 Unknown Ur Leukocyte Esterase Trace (Negative) H 08/06/22 Unknown Urine WBC (Auto) 10-30 /hpf (0-5) H 08/06/22 Unknown Urine RBC (Auto) 0-4 /hpf (0-4) 08/06/22 Unknown U Hyaline Cast (Auto) 1-5 /lpf (0-5) 08/06/22 Unknown U Epithel Cells (Auto) >30 /lpf (0-5) H 08/06/22 Unknown Urine Bacteria (Auto) 2+ (Negative) H 08/06/22 Unknown Nasal Screen MRSA (PCR) Negative (Negative) 08/07/22 05:17 SARS-CoV-2, RNA, NAAT NEGATIVE (NEGATIVE) 08/06/[address] 08/06/22 22:[address] OF THE BRAIN; CT ANGIOGRAM OF THE BRAIN; CT ANGIOGRAM OF THE NECK CLINICAL HISTORY: Change in mental status. COMPARISON STUDY: CT of the brain dated 08/04/2022. MR angiogram of the brain dated 01/26/2012. TECHNIQUE: Unenhanced axial CT scan of the brain is performed. Subsequently, following the IV administration of 101 of Optiray 320, CT angiogram of the head and neck was performed from the aortic arch to the vertex. Images are reviewed in the axial, sagittal, and coronal planes. 3-D MIPS images are created and assessed. IV contrast was administered without complication. All measurements were calculated based on NASCET criteria. A dose lowering technique was utilized adhering to the principles of ALARA. CT DOSE: 1042.24 mGy.cm FINDINGS: Brain parenchyma: There is age related involutional change noting mild subcortical and periventricular microangiopathic disease. There is no hemorrhage, mass effect, or evidence of acute territorial ischemia by CT criteria. There is no evidence of enhancing mass lesion on the angiogram phase images. The ventricles, sulci, and cisterns are prominent secondary to involutional change. Fajardo-white matter differentiation is preserved. No extra- axial fluid collection is seen. Thoracic aorta: There is atherosclerotic calcification of the thoracic aorta. Visualized portions of the thoracic aorta are normal in caliber. The aortic arch demonstrates standard 3-vessel anatomy. Right carotid arterial system: The right common carotid artery is widely patent, as are the right internal and external carotid arteries. Calcified plaque is seen in the carotid bulb. Left carotid arterial system: The left common carotid artery is widely patent, as are the left internal and external carotid arteries. Calcified plaque is noted in the carotid bulb. Vertebral arteries: The vertebral arteries are widely patent bilaterally and codominant. Subclavian arteries: Widely patent bilaterally. Intracranial vasculature: There is atherosclerotic calcification of the cavernous carotid and vertebral arteries. The internal carotid arteries are patent at the skull base, as are the anterior and middle cerebral arteries bilaterally. The vertebrobasilar system and posterior cerebral arteries are widely patent. There is origin of the right posterior cerebral artery. The vertebral arteries are codominant. There is no aneurysm, high-grade stenosis, or focal vessel cut off seen throughout the intracranial circulation. Jugular veins: Patent bilaterally. Dural sinuses: Patent. Lung apices: Emphysematous change is seen in the upper lobes. Upper lobe lung parenchyma is otherwise clear as visualized. Soft tissues: The visualized pharyngeal soft tissues are normal in appearance noting angiographic phase technique. The oropharyngeal airway appears widely patent. The thyroid gland is heterogeneous. The salivary glands are normal in appearance. No cervical lymphadenopathy is seen. Skeletal structures: The skeletal structures are osteopenic. The calvarium appears intact. The cervical spine is maintained noting multilevel spondylosis. No lytic or blastic lesion is seen. Orbits: The bony orbits are intact. Orbital contents are normal as visualized noting bilateral ocular lens implants. Sinuses and mastoids: The paranasal sinuses are clear. There is trace right m astoid effusion. The left mastoid air cells are well pneumatized. IMPRESSION: 1. There is no hemorrhage, mass effect, or evidence of acute territorial ischemia by CT criteria. 2. Unremarkable CT angiogram of the brain. 3. Unremarkable CT angiogram of the neck. ACT 112: Negative or not required by law. Electronically signed by: Don Fallon M.D. 08/06/2022 11:11 PM Head CTA 08/06/22 22:[address] OF THE BRAIN; CT ANGIOGRAM OF THE BRAIN; CT ANGIOGRAM OF THE NECK CLINICAL HISTORY: Change in mental status. COMPARISON STUDY: CT of the brain dated 08/04/2022. MR angiogram of the brain dated 01/26/2012. TECHNIQUE: Unenhanced axial CT scan of the brain is performed. Subsequently, following the IV administration of 101 of Optiray 320, CT angiogram of the head and neck was performed from the aortic arch to the vertex. Images are reviewed in the axial, sagittal, and coronal planes. 3-D MIPS images are created and assessed. IV contrast was administered without complication. All measurements were calculated based on NASCET criteria. A dose lowering technique was utilized adhering to the principles of ALARA. CT DOSE: 1042.24 mGy.cm FINDINGS: Brain parenchyma: There is age related involutional change noting mild subcortical and periventricular microangiopathic disease. There is no hemorrhage, mass effect, or evidence of acute territorial ischemia by CT criteria. There is no evidence of enhancing mass lesion on the angiogram phase images. The ventricles, sulci, and cisterns are prominent secondary to involutional change. Fajardo-white matter differentiation is preserved. No extra- axial fluid collection is seen. Thoracic aorta: There is atherosclerotic calcification of the thoracic aorta. Visualized portions of the thoracic aorta are normal in caliber. The aortic arch demonstrates standard 3-vessel anatomy. Right carotid arterial system: The right common carotid artery is widely patent, as are the right internal and external carotid arteries. Calcified plaque is seen in the carotid bulb. Left carotid arterial system: The left common carotid artery is widely patent, as are the left internal and external carotid arteries. Calcified plaque is noted in the carotid bulb. Vertebral arteries: The vertebral arteries are widely patent bilaterally and codominant. Subclavian arteries: Widely patent bilaterally. Intracranial vasculature: There is atherosclerotic calcification of the cavernous carotid and vertebral arteries. The internal carotid arteries are patent at the skull base, as are the anterior and middle cerebral arteries bilaterally. The vertebrobasilar system and posterior cerebral arteries are widely patent. There is origin of the right posterior cerebral artery. The vertebral arteries are codominant. There is no aneurysm, high-grade stenosis, or focal vessel cut off seen throughout the intracranial circulation. Jugular veins: Patent bilaterally. Dural sinuses: Patent. Lung apices: Emphysematous change is seen in the upper lobes. Upper lobe lung parenchyma is otherwise clear as visualized. Soft tissues: The visualized pharyngeal soft tissues are normal in appearance n oting angiographic phase technique. The oropharyngeal airway appears widely patent. The thyroid gland is heterogeneous. The salivary glands are normal in appearance. No cervical lymphadenopathy is seen. Skeletal structures: The skeletal structures are osteopenic. The calvarium appears intact. The cervical spine is maintained noting multilevel spondylosis. No lytic or blastic lesion is seen. Orbits: The bony orbits are intact. Orbital contents are normal as visualized noting bilateral ocular lens implants. Sinuses and mastoids: The paranasal sinuses are clear. There is trace right mastoid effusion. The left mastoid air cells are well pneumatized. IMPRESSION: 1. There is no hemorrhage, mass effect, or evidence of acute territorial ischemia by CT criteria. 2. Unremarkable CT angiogram of the brain. 3. Unremarkable CT angiogram of the neck. ACT 112: Negative or not required by law. Electronically signed by: Don Fallon M.D. 08/06/2022 11:11 PM Neck CTA 08/06/22 22:[address] OF THE BRAIN; CT ANGIOGRAM OF THE BRAIN; CT ANGIOGRAM OF THE NECK CLINICAL HISTORY: Change in mental status. COMPARISON STUDY: CT of the brain dated 08/04/2022. MR angiogram of the brain dated 01/26/2012. TECHNIQUE: Unenhanced axial CT scan of the brain is performed. Subsequently, following the IV administration of 101 of Optiray 320, CT angiogram of the head and neck was performed from the aortic arch to the vertex. Images are reviewed in the axial, sagittal, and coronal planes. 3-D MIPS images are created and assessed. IV contrast was administered without complication. All measurements were calculated based on NASCET criteria. A dose lowering technique was utilized adhering to the principles of ALARA. CT DOSE: 1042.24 mGy.cm FINDINGS: Brain parenchyma: There is age related involutional change noting mild subcortical and periventricular microangiopathic disease. There is no hemorrhage, mass effect, or evidence of acute territorial ischemia by CT criteria. There is no evidence of enhancing mass lesion on the angiogram phase images. The ventricles, sulci, and cisterns are prominent secondary to involutional change. Fajardo-white matter differentiation is preserved. No extra- axial fluid collection is seen. Thoracic aorta: There is atherosclerotic calcification of the thoracic aorta. Visualized portions of the thoracic aorta are normal in caliber. The aortic arch demonstrates standard 3-vessel anatomy. Right carotid arterial system: The right common carotid artery is widely patent, as are the right internal and external carotid arteries. Calcified plaque is seen in the carotid bulb. Left carotid arterial system: The left common carotid artery is widely patent, as are the left internal and external carotid arteries. Calcified plaque is noted in the carotid bulb. Vertebral arteries: The vertebral arteries are widely patent bilaterally and codominant. Subclavian arteries: Widely patent bilaterally. Intracranial vasculature: There is atherosclerotic calcification of the cavernous carotid and vertebral arteries. The internal carotid arteries are patent at the skull base, as are the anterior and middle cerebral arteries bilaterally. The vertebrobasilar system and posterior cerebral arteries are widely patent. There is origin of the right posterior cerebral artery. The vertebral arteries are codominant. There is no aneurysm, high-grade stenosis, or focal vessel cut off seen throughout the intracranial circulation. Jugular veins: Patent bilaterally. Dural sinuses: Patent. Lung apices: Emphysematous change is seen in the upper lobes. Upper lobe lung parenchyma is otherwise clear as visualized. Soft tissues: The visualized pharyngeal soft tissues are normal in appearance noting angiographic phase technique. The oropharyngeal airway appears widely patent. The thyroid gland is heterogeneous. The salivary glands are normal in appearance. No cervical lymphadenopathy is seen. Skeletal structures: The skeletal structures are osteopenic. The calvarium appears intact. The cervical spine is maintained noting multilevel spondylosis. No lytic or blastic lesion is seen. Orbits: The bony orbits are intact. Orbital contents are normal as visualized noting bilateral ocular lens implants. Sinuses and mastoids: The paranasal sinuses are clear. There is trace right mastoid effusion. The left mastoid air cells are well pneumatized. IMPRESSION: 1. There is no hemorrhage, mass effect, or evidence of acute territorial ischemia by CT criteria. 2. Unremarkable CT angiogram of the brain. 3. Unremarkable CT angiogram of the neck. ACT 112: Negative or not required by law. Electronically signed by: Don Fallon M.D. 08/06/2022 11:11 PM Chest X-Ray 08/06/22 22:33 SINGLE VIEW CHEST CLINICAL HISTORY: Change in mental status. FINDINGS: An AP, portable, upright chest radiograph is compared to study dated 08/04/2022 and correlated with chest CT dated 09/28/2019. The patient is status post midline sternotomy. The heart is enlarged noting atherosclerotic calcification of the thoracic aorta. The pulmonary vasculature is noncongested. Emphysema and chronic interstitial thickening is similar to previous. Apical scarring is observed. Airspace consolidation is seen at the left lung base. Small left pleural effusion is noted. Additional foci of parenchymal scarring are seen throughout both lungs. No pneumothorax is seen. The skeletal structures are osteopenic. The bony thorax is grossly intact. Arthritic change is noted in the shoulders and spine. IMPRESSION: 1. Cardiomegaly and emphysema without radiographic evidence of congestive failure. 2. Small left pleural effusion and left basilar consolidation. This is similar in appearance to the 08/04/2022 examination. ACT 112: Negative or not required by law. Electronically signed by: Don Fallon M.D. 08/06/2022 11:46 PM Brain MRI 08/08/22 11:05 MRI OF THE BRAIN COMBO CLINICAL HISTORY: Change in mental status. COMPARISON STUDY: CT of the brain dated 08/06/2022. MRI of the brain dated 01/26/2012. TECHNIQUE: MRI of the brain was performed utilizing various T1 and T2-weighted sequences in the axial, sagittal, and coronal planes. Contrast-enhanced sequences were acquired following the administration of 6.7 cc of Gadavist. FINDINGS: Brain parenchyma: There is age related involutional change noting mild to moderate subcortical and periventricular microangiopathic disease. There is no hemorrhage or mass effect. There is no restricted diffusion to suggest acute ischemia. A 7 mm enhancing extra-axial nodule in the posterior fossa adjacent to the basilar artery on axial image #7 is typical for a meningioma. This is unchanged from prior examinations. No additional enhancing lesion is identified on the postcontrast images. Fajardo-white matter differentiation is preserved. Chronic lacunar infarct is noted in the right thalamus. There are scattered foci of blooming artifact on the T2* series. No extra-axial fluid collection is seen. The cerebellar tonsils are normal in configuration. Ventricles, sulci, and cisterns: Prominent secondary to involutional change. Pituitary and sella: Partially sella is incidentally noted. Intracranial vasculature: Normal flow voids are maintained at the skull base. Orbits: The bony orbits are grossly intact. Orbital contents are normal in appearance noting bilateral ocular lens implants. Sinuses and mastoids: There is mucosal thickening in the right frontal sinus. The remaining paranasal sinuses are clear. A right mastoid effusion is observed. Calvarium: Unremarkable. Cervical cord: Partially visualized cervical spinal cord is normal in morphology and signal intensity. IMPRESSION: 1. No acute intracranial abnormality. 2. There are scattered foci of blooming artifact on the T2* series suggesting hemosiderin deposition. This is of indeterminate significance and early amyloid could potentially have this appearance. Clinical correlation will be required. ACT 112: Negative or not required by law. Electronically signed by: Don Fallon M.D. 08/08/2022 7:53 PM Ordered Studies 08/06/22 22:32 CT angio head w con Stat CT angio neck with con Stat CT head/brain wo con Stat 08/08/22 11:05 MRI Brain [MR brain wo/w con] Urgent Hospital Course (1) Encephalopathy: Acute metabolic encephalopathy DD: Hypertensive encephalopathy, R/O infection ? Due to Meds --CT head, CTA Head/Neck:There is no hemorrhage, mass effect, or evidence of acute territorial ischemia by CT criteria. Unremarkable CT angiogram of the brain. Unremarkable CT angiogram of the neck. --MRI Brain:No acute intracranial abnormality. There are scattered foci of blooming artifact on the T2* series suggesting hemosiderin deposition. This is of indeterminate significance and early amyloid could potentially have this appearance. Clinical correlation will be required. Zoloft, oxybutynin discontinued Minimally low vitamin B12 levels Normal ammonia levels Mental status back to baseline Discussed with neurologist on-call: Reviewed the chart, MRI--suggested to replace vitamin B12, no further investigations needed. Agrees with holding off any sedating meds. 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 1.4 cm left mid pole renal lesion. This could reflect a small solid renal lesion or a complex cyst. Nonemergent renal protocol CT could be obtained for further evaluation. Small left and trace right pleural effusions. -Discussed with patient's daughter over the phone on 08/04/22: Patient and daughter prefers no further investigations given her age. CAD S/P stent Aortic stenosis S/P bioprosthetic AVR Hyperlipidemia Continue aspirin, statin, isosorbide, metoprolol, lisinopril PMR Cervical cancer S/P surgery Chronic anemia Mood disorder DVT Px: Lovenox SQ Code Status DNR/DNI Disposition SNF as able Total Time Total Time Spent Total Time Spent (In Minutes): 58 minutes Discharge Plan Discharge Items Patient Disposition: Personal [facility] Reason For Visit: HTN CRISIS Discharge Diagnosis: Acute metabolic encephalopathy Hypertensive Urgency Activity: Per Instructions section Exercise/Sports: Gradually increase as tolerated Non-emergency contact: Primary Care Provider Call non-emergency contact if: you have any medication questions, your symptoms worsen, your pain is concerning for you and you have a fever Follow-up/Referrals: [facility] [employer] [Primary Care Provider] - Diet: Heart Healthy Diet Texture: Easy to Chew Addtl Attending Provider Instructions: Follow-up with your primary care physician in 1 week --- Monitor your blood pressure regularly as advised. Further adjustment of blood pressure medications as per your primary care physician. Medication Changes: -- Your lisinopril is increased to 30 mg daily --Start taking Vitamin B12 as prescribed --Your Zoloft and Oxybutynin are discontinued Seek immediate medical attention if your symptoms reoccur or worsen Please take all medications as instructed on discharge list below. Please call if you have any questions or problems. You can reach a [facility] hospitalist on duty at [facility] 24 hours a day by calling [phone] Pending Studies at Discharge: No Stand-Alone Forms: My [facility] StudioSnaps, Smoking Cessation Skilled Items Patient informed of condition?: Yes DNR: Yes Discharge Level of Care: Skilled Communicable Disease: No Discharge Prognosis: Stable Lines: None Urinary Catheter: No Medications and DC Order Prescriptions: New cyanocobalamin (vitamin B-12) 500 mcg Tablet 1,000 mcg PO QAM Qty: 60 1RF Continued aspirin [Lyly Low Dose Aspirin] 81 mg Tablet,Delayed Release (Dr/Ec) 81 mg PO DAILY docusate sodium 100 mg Capsule 100 mg PO BID furosemide 20 mg Tablet 20 mg PO DAILYBB cholecalciferol (vitamin D3) 1,000 unit Tablet 1,000 unit PO DAILY acetaminophen [Acetaminophen Extra Strength] 500 mg Tablet 500 mg PO Q4 MDD 3 GRAMS/24 HOURS PRN (Reason: Pain) ferrous sulfate 325 mg (65 mg iron) Tablet 325 mg PO TID sennosides 8.6 mg Tablet 8.6 mg PO DAILY PRN (Reason: Constipation) fexofenadine 180 mg Tablet 180 mg PO DAILY hydrocortisone 1 % Cream 1 applic TOPICAL DIRECTED PRN (Reason: Rash) Mucinex DM 30-600 mg Tablet Extended Release 12 Hr 1 tab PO Q12H PRN (Reason: Congestion) alum-mag hydroxide-simeth [Antacid-Simethicone] 400-400-40 mg/5 mL Suspension 10 - 20 ml PO QID PRN (Reason: HEARTBURN/INDIGESTION/GAS) Rosemarie Protect(dimethicone-zinc) Cream 1 applic TOPICAL DAILY PRN (Reason: Skin Irritation) nitroglycerin [Nitrostat] 0.4 mg Tablet, Sublingual 0.4 mg sublingual UD PRN (Reason: chest pain) Qty: 25 2RF Rx Instructions: dissolve 1 tablet under tongue as needed , may repeat x 3 doses for chest pain atorvastatin 40 mg tablet 40 mg PO DAILY Qty: 30 5RF isosorbide mononitrate 30 mg Tablet Extended Release 24 Hr 30 mg PO QAM Qty: 30 0RF omeprazole 20 mg Capsule,Delayed Release(Dr/Ec) 20 mg PO DAILY Systane (PF) 0.4-0.3 % Dropperette 1 drp OPB BID amoxicillin 500 mg capsule 2,000 mg PO DAILY PRN (Reason: 1 hour prior to dental work) docosanol [Abreva] 10 % Cream 1 applic TOPICAL UD PRN (Reason: Cold Sores) Rx Instructions: may keep at bedside loperamide [Anti-Diarrheal (loperamide)] 2 mg Tablet 2 mg PO UD MDD 4 PRN (Reason: Diarrhea) Rx Instructions: take 2 tablets after 1st loose stool, then 1 tablet thereafter each loose st ool max of 4 tabs in 24 hours nystatin 100,000 unit/gram Cream 1 applic TOPICAL BID PRN (Reason: fungus) trolamine salicylate [Aspercreme] 10 % Cream 1 applic TOPICAL QID PRN (Reason: Pain) Rx Instructions: may keep at bedside for independent use Metamucil [place] Powder 1 tbsp PO DAILY Rx Instructions: mix into 6-8 ounces of fluid and drink metoprolol succinate 50 mg Tablet Extended Release 24 Hr 50 mg PO DAILY Qty: 30 0RF Changed lisinopril 10 mg Tablet 30 mg PO DAILY Qty: 90 0RF Discontinued oxybutynin chloride 5 mg Tablet 5 mg PO DAILY sertraline 50 mg tablet 25 mg PO QAM Qty: 30 0RF Discharge Orders: Discharge Order (Routine); Ordered 08/09/22 Ordered By: Vincent Stewart Admission Data Admit Date/Time: 08/07/22 01:42 Attending Provider: Vincent Stewart Admit Provider: Dante Ruiz Primary Care Provider: Jose AlvaHello World Mobile, zweitgeist Other Providers: Dante Ruiz ; Devin Dean ; Corey Guerin ; Matthew Figueroa ; Garret Yoon ; Brayan Lynne ; Carlos Lee ; Luz Taylor ; Patsy Jung ; Alexandra Ortiz. ; Guanaco Ng
== END 2022-08-09 16:06 | disposition home or self-care (01) | DRG 280 ==
LOC: ED 22:07 → 2S 08-07 01:42

== ENCOUNTER 2023-08-18 08:29 | Inpatient (IN) ==
--- OUTSIDE RECORDS SUMMARY | 2023-08-18 08:35 | External Medical Summary | Summary of Care ---
Author Name Unknown Organization [facility] Address [address] [place] [place] [address] Phone [phone] Care Team Providers Care Restaurant Attendant Name Role Phone EsaBrayan romero Primary Care Provider Reason for Visit * Reason Onset Date Comments Medication Administration prolia Medication Administration 07/04/2023 Prolia * Precert (Within 10 days (routine)) - Authorized Specialty Diagnoses / Procedures Referred By Contac t Referred To Contact Diagnoses Age-related osteoporosis without current pathological fracture Procedures ND DENOSUMAB INJECTION Jack Whitmore MD [facility] [place] [address] Jack Whitmore MD [address] [place] [address] [place] [address] Referral ID Status Reason Start Date Expiration Date V isits Requested Visits Authorized [id number] Authorized Precert 09/19/2022 07/22/2099 [id number] Encounter Details Date Type Department Care Team (Late st Contact Info) Description 07/04/2023 1:30 PM EST Nurse Only Rheumatology [place] [id number] [place] [address] Pf, Nurse Rheum [facility] [address] [place] [address] Medication Administration (prolia); Medica... Allergies Active Allergy Reactions Criticality Noted Date Comments Allopurinol Rash 12/23/2009 Cephalosporins 03/10/2019 Unknown Yxtkcufe-Ivfhnywez-Qqmixpnuml 2018 Swelling, redness Omeprazole Rash High 07/30/2017 documented as of this encounter (statuses as of 07/04/2023) Medications Medication Sig Dispensed Refills Start Date End Date Status ASPIRIN 81 MG PO TABS Take 1 Tablet by mouth in the morning. 0 Active amoxicillin (AMOXIL) 500 MG Capsule TAKE 4 CAPS BY MOUTH 1 HOUR PRIOR TO APPOINTMENT 5 05/01/2016 Active acetaminophen (TYLENOL) 500 MG Tablet Take 1 Tablet by mouth every 6 hours as needed for Pain. 0 Active furosemide (LASIX) 20 MG Tablet Take 1 Tab by mouth daily. In the morning. 90 Tab 3 11/29/2017 Active AUG BETAMETHASONE DIPROPIONATE (DIPROLENE AF) 0.05 % creamIndications:Derm atitis Apply topically to affected area 2 times a day. To affected area. Back and buttocks 50 g 1 05/06/2018 Active Cholecalciferol 1000 units TBDP Take 1,000 Units by mouth daily. 0 06/11/2018 Active ferrous sulfate (FEOSOL) 325 (65 FE) MG Tablet Take 1 Tablet by mouth in the morning and 1 Tablet at noon and 1 Tablet before bedtime. 0 Active Bisacodyl 10 MG Rectal Suppository Administer 1 Suppository into the rectum. Daily as needed 0 Active fexofenadine (CHANDRIKA) 180 MG Tablet Take 1 Tablet by mouth in the morning. 0 Active hydrocortisone 1 % cream Apply topically to affected area. Apply to affected area as needed 0 Active milk of magnesia (MOM) 400 MG/5ML suspension Take by mouth daily as needed for Constipation. 30 ml daily as needed 0 Active Sennosides (SENNA) 8.6 MG Tablet Take 1 Tablet by mouth. Daily if needed 0 Active Ca Carbonate-Mag Hydroxide 550-110 MG Oral Tablet Chewable Take by mouth. 0 Active omeprazole (PRILOSEC) 20 MG CPDR Take 1 Capsule by mouth in the morning. 0 Active nitroglycerin (NITROSTAT) 0.4 MG SUBL 1 Tablet. As needed 0 10/01/2019 Activ e atorvaSTATin (LIPITOR) 40 MG Tablet Take 1 Tablet by mouth at bedtime. 0 10/01/2019 Active Docosanol 10 % External Cream Apply topically to affected area. 0 Active Psyllium 43 % Oral Powder Take by mouth. 0 Active Lisinopril 30 MG Oral Tablet 1 daily 0 12/19/2022 Active Metoprolol Succinate ER 50 MG Oral Tablet Extended Release 24 Hour (toPROL XL) 1 daily 0 12/19/2022 Active Isosorbide Mononitrate ER 30 MG Oral Tablet Extended Release 24 Hour (Imdur) 0 07/02/2023 Active Hospital, Clinic, or Other Facility Administered Medication Ordered Dose Route Frequency Start Date End Date Status Denosumab (Prolia) subcut inj 60 mgIndications:Senile osteoporosis 60 mg SC ONCE 07/04/2023 07/04/2023 Ended documented as of this encounter (statuses as of 07/04/2023) Active Problems Problem Noted Date Diagnosed Date Coronary artery disease invo lving [place] coronary artery of [place] heart without angina pectoris 03/23/2020 Status post insertion of drug eluting coronary a rtery stent 03/23/2020 Dyslipidemia, goal LDL below 70 03/23/2020 Bullous pemphigoid 10/05/2018 S/P right hip fracture 06/09/2017 History of nonmelanoma skin cancer 05/02/2017 Overview: BCC - neck 2017 HTN, goal below 140/90 03/16/2014 Senile osteoporosis 02/20/2011 Malignant neoplasm of corpus uteri 02/10/2010 KIDNEY DZ,CHRONIC (GFR 30-59) STAGE III 02/11/20 10 Overview: Per CKD Protocol, #1 Gouty arthropathy, chronic, without tophi 2009 Polymyalgia rheumatica 12/09/2008 S/P aortic valve replacement 10/17/2007 Acute posthemorrhagic anemia 10/04/2007 folliculitis 03/13/2002 nummular eczema 03/12/2002 BENIGN NEOPLASM LG BOWEL - polyp 04/26/2001 CHOLELITHIASIS NOS - surgery 05/03/2000 GENERAL OSTEOARTHROSIS 03/30/2000 Glaucoma Rosacea DIVERTICULOSIS OF COLON Joint pain, hip Overview: cyst lumbar nummular eczema Overview: Eczema Rosacea documented as of this encounter (statuses as of 07/04/2023) Resolved Problems Problem Noted Date Diagnosed Date Resolved Date Hyponatremia 03/04/2014 12/24/2015 Injury of leg, left, superficial 11/30/2011 08/19/2012 Obesity, Class II, BMI 35-39 .9, isolated (see actual BMI) 01/03/2010 08/19/2012 Overview: Per Obesity Protocol, #19 Dyslipidemia, goal to be determined 07/01/2009 10/10/2012 Overview: Per Lipid Taxonomy. 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 10/18/2007 08/18/2009 [facility] current use of ant icoagulant therapy 10/10/2007 02/19/2012 Overview: ICD-10 update of inactive term Anticoagulation management encounter 10/10/2007 08/19/2012 Examination following surgery 10/04/2007 08/19/2012 CARDIAC MURMURS NEC - aortic stenosis 10/20/1999 08/19/2012 Edema 10/20/1999 08/19/2012 Mixed dyslipidemia 9 Overview: Per Lipid Taxonomy. Menopause 08/19/2012 Aortic valve stenosis 2012 Rosacea 08/20/2008 Overview: Resolved per Duplicate Protocol #2. Osteoporosis 02/20/2011 Supraventricular aortic stenosis 08/19/2012 Rosacea 08/20/2008 Overview: Resolved per Duplicate Protocol #2. Osteoporosis 08/19/2012 Polymyalgia rheumatica 08/19 documented as of this encounter (statuses as of 07/04/2023) Immunizations Name Administration Dates Next Due COVID-19 mRNA, LNP-s, No Pre serve, 2-Dose Series (Moderna) 06/10/2021,09/13/2020,08/16/2020 Pneumococcal Conjugate Vacc, 13 Valent (Prevnar) 05/21/2015 Pneumococcal Polysaccharide PPV23 (Pneumovax) 12/09/2008,06/10/2002 Seasonal Influenza, PF, 6 M & above, IM , (FluLaval or Fluzone) 04/26/2018,05/08/2017 Seasonal Influenza, Quadriva lent Hd, 65+ Yrs 05/04/2021 Seasonal Influenza, Quadriva lent, No Preserve, IM 04/25/2016,05/21/2015 Seasonal Influenza, Split, I IV3, With Preserve, Inj 05/14/2014,04/14/2013,05/09/2012,05/11,04/28/2010,04/28/2009,05/05/2008 TD - Tetanus/Diptheria (ADULT) 11/18/2011 TD, Preservative Free 02/03/2010 Varicella Zoster Vaccine (Adult) 09/24/2008 documented as of this encounter Social History Tobacco Use Types Packs/Day Years Used Date Smoking Tobacco: Former Cigarettes 1 35 Q uit: 02/19/1992 Smokeless Tobacco: Never Tobacco Cessation:Counseling Given: Not Answered Comments:quit 1992 Alcohol Use Standard Drinks/Week Comments No 0 (1 standard drink = 0.6 oz pure alcohol) history of alcohol use. None for the past twenty years. PHQ-2 Answer Date Recorded PHQ-2 Score 2 05/26/2018 Sex and Gender Information Value Date Recorded Sex Assigned at Not on file Gender Identity Not on file Sexual Orientation Not on file Job Start Date Occupation Industry Not on file Not on file Not on file documented as of this encounter Last Filed Vital Signs Vital Sign Reading Time Taken Comments Blood Pressure - - Pulse - - Temperature 36.1 C (97 F) 07/04/2023 1:32 PM EST Respiratory Rate - - Oxygen Saturation - - Inhaled Oxygen Concentration - - Weight - - Height - - Body Mass Index - - documented in this encounter Progress Notes * Aurelia Caro LPN - 07/04/2023 1:33 PM EST Batsheva Dumas presents today for administration of Prolia. She understands the benefits and risks of this treatment. An educational pamphlet was given to the patient. Prolia 60 mg was administered subcutaneously. The patient tolerated the procedure without problems. She will return in 6 months for the next injection and evaluation. Aurelia Caro LPN documented in this encounter Nursing Notes * Aurelia Caro LPN - 07/04/2023 1:31 PM EST Chief Complaint Patient presents with Medication Administration prolia documented in this encounter Plan of Treatment Upcoming Encounters Date Type Department Care Team (Late st Contact Info) Description 07/04/2023 2:00 PM EST Office Visit Rheumatology [place] [phone] [place] [address] Jack Whitmore MD [address] [place] [address] Arrived Health Maintenance Due Date Last Done Comments Zoster Vaccines (2 of 3) 11/19/2008 09/24/2008 DTaP,Tdap,and Td Vaccines (1 - Tdap) 11/19/2011 11/18/2011, 02/03/2010 Albumin/Creatinine Ratio 08/11/2017 017, 08/25/2015, 02/08/2015, Additional history exists CKD PHOS USE SMARTSET 04310 02/13/201801/21, 08/11/2016, 08/25/2015, Additional history exists CKD HGB USE SMARTSET 05938 12/20/201812/20, 10/26/2017, 09/19/2017, Additional history exists Depression Screening 12/20/2018 12/20/2017 COVID-19 Vaccine ( season) 2023 06/10/2021, 09/13/2020, 08/16/2020 Influenza Vaccine (FLU shot) (#1) 2023 05/04/2021, 04/26/2018, 04/26/2018, Additional history exists *BISPHONATE OR OTHER ACCEPTABLE MEDICATION NEEDED FOR OSTEOPOROSIS (REFER TO SMARTSET #1146) 07/04/2023 DXA Scan 03/15/2024 03/15/2022, 0602/2020, 10/09/2017, Additional history exists Pneumococcal Vaccine: 65+ Years Completed 05/21/2015, 12/09/2008, 06/10/2002 VITAMIN D LEVEL ONCE IN A LIFETIME-USE SMARTSET# 17906 Completed 01/01/2023, 08/03/2021, 04/26/2018, Additional history exists GARDASIL-HPV IMMUNIZATION SERIES Aged Out No longer eligible based on patient's age to complete this topic Hepatitis B Aged Out No longer eligi ble based on patient's age to complete this topic MENINGOCOCCAL (MENACTRA/MENVEO) Aged Out No longer eligible based on patient's age to complete this topic documented as of this encounter Medical Devices Implanted Type Area Sales Commissions Analyst Device Identifier Shelf Expiration Date Model / Serial / Lot Valve Ce Aortic 21mm 3000tfx - [id number] Implanted:Qty : 1 on 10/03/2007 at OR [facility] [place] Tissue - Non Human N/A: Heart [employer] 03/23/2009 3000TFX-2 [id number] / documented as of this encounter Visit Diagnoses Diagnosis Senile osteoporosis- Primary documented in this encounter Administered Medications Inactive Administered Medications - up to 3 most recent administrations Medication Order MAR Action Action Date Dose Rate Site Denosumab (Prolia) subcut inj 60 mg 60 mg, Subcutaneous, ONCE, On Sun07/04/23 at 1330, For 1 dose Given 07/04/2023 1:36 PM EST 60 mg Arm L eft Upper documented in this encounter Advance Directives Latest Code Status on File Code Status Date Activated Date Inactivated Comments Full Code 10/03/2007 4:11 PM 10/17/2007 12:14 AM Care Teams Restaurant Attendant Relationship Specialty Start Date End Date Brayan Gayle DO [address] [place] [address] PCP - General 09/17/18 documented as of this encounter
--- OUTSIDE RECORDS SUMMARY | 2023-08-18 08:35 | External Medical Summary | Summary of Care ---
Author Name Unknown Organization [facility] Address [address] [facility] [address] Phone [phone] Care Team Providers Care Excavating Contractor Name Role Phone EsaBrayan romero Primary Care Provider [phone] Reason for Visit * Reason Comments Rheum Follow Up Follow up - left kne e injection Encounter Details Date Type Department Care Team (Latest Contact Info) Description 07/04/2023 2:00 PM EST Office Visit Rheumatology [place] [address] [address] [place] [address] Jack Whitmore MD [facility] [address] [place] [address] Primary osteoarthritis of left knee* Allergies Active Allergy Reactions Criticality Noted Date Comments Allopurinol Rash 12/23/2009 Cephalosporins 03/10/2019 Unknown Mwnrtryk-Wrgetqsxk-Xtbymchmpz 2018 Swelling, redness Omeprazole Rash High 07/30/2017 [...] Route Frequency Start Date End Date Status Lidocaine (PF) 2 % (PF) inj 20 mgIndications:Primary osteoarthritis of left knee 20 mg IX ONCE 07/04/2023 07/04/20 23 Ended methylPREDNISolone acetate (Depo-Medrol) 40 MG/ML inj 40 mgIndications:Primary osteoarthritis of left knee 40 mg IX ONCE 07/04/2023 07/04/20 23 Ended documented as of this encounter (statuses as of 07/04/2023) Active Problems Problem Noted Date Diagnosed Date Primary osteoarthritis of left knee 07/04/2023 Coronary artery disease 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 10/18/2007 08/18/2009 watermaster current use of ant icoagulant therapy 10/10/2007 [...] (Prevnar) 05/21/2015 Pneumococcal Polysaccharide PPV23 (Pneumovax) 12/09/2008,06/10/2002 Season Influenza, Quad, PF, Adjuvanted, 65+ Yrs, IM (FLUAD) 05/14/2023 Seasonal Influenza Virus Vac cine, Unspecified Formulation 04/26/2018,05/08/2017,04/25/2016,05/21,05/14/2014,04/14/2013,05/09/2012 ,05/11/2011,04/28/2010,04/28/2009,04/22,05/05/2003,06/03/2002, 1,06/21/2000,05/04/1999 Seasonal Influenza, PF, 6 M & above, [...] Pressure - - Pulse - - Temperature 36.2 C (97.1 F) 07/04/2023 1:47 PM ES T Respiratory Rate - - Oxygen Saturation - - Inhaled Oxygen Concentration - - Weight - - Height - - Body Mass Index - - documented in this encounter Progress Notes * Jack Whitmore MD - 07/04/2023 2:04 PM ESTAssociated Order(s): LG Joint Inj/Arthro: L knee Post-Procedure Diagnose(s): Primary osteoarthritis of left knee Batsheva Dumas is a 88 year old female patient. ICD-10-CM 1. 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 LG Joint Inj/Arthro: L knee on 07/04/2023 2:04 PM Indications: pain Details: 25 G needle, anterior approach Medications: (40mg of depomedrol and 1 ml of 2% lidocaine) Outcome: tolerated well, no immediate complications Procedure, treatment alternatives, risks and benefits explained, specific risks discussed. Consent was given by the patient. Immediately prior to procedure a time out was called to verify the correctpatient, procedure, equipment, field technical support consultant and site/side marked as required. Patient was prepped and draped in the usual sterile fashion. Jack Whitmore MD 07/04/2023 documented in this encounter Nursing Notes * Aurelia Caro LPN - 07/04/2023 1:47 PM EST Chief Complaint Patient presents with Rheum Follow Up Follow up - left knee injection documented in this encounter Plan of Treatment Upcoming Encounters Date Type Department Care Team (Late st Contact Info) Description 01/04/2024 1:20 PM EDT Office Visit Rheumatology [facility] [address] [place] [address] aJck Whitmore MD [address] [place] [address] Health Maintenance Due Date Last Done Comments Zoster Vaccines (2 of 3) 11/19/2008 09/24/2008 DTaP,Tdap,and Td Vaccines (1 - Tdap) 11/19/2011 11/18/2011, 02/03/2010 Albumin/Creatinine Ratio 08/11/2017 017, 08/25/2015, 02/08/2015, Additional history exists CKD PHOS USE SMARTSET 18490 02/13/201801/21, 08/11/2016, 08/25/2015, Additional history exists CKD HGB USE SMARTSET 93956 12/20/201812/20, 10/26/2017, 09/19/2017, Additional history exists Depression Screening 12/20/2018 12/20/2017 COVID-19 Vaccine ( season) 2023 06/10/2021, 09/13/2020, 08/16/2020 *BISPHONATE OR OTHER ACCEPTABLE MEDICATION NEEDED FOR OSTEOPOROSIS (REFER TO SMARTSET #1146) 07/04/2023 DXA Scan 03/15/2024 03/15/2022, 0602/2020, 10/09/2017, Additional history exists Pneumococcal Vaccine: 65+ Years Completed 05/21/2015, 12/09/2008, 06/10/2002 VITAMIN D LEVEL ONCE IN A LIFETIME-USE SMARTSET# 64320 Completed 01/01/2023, 08/03/2021, 04/26/2018, Additional history exists Influenza Vaccine (FLU shot) Completed , 05/04/2021, 04/26/2018, Additional history exists GARDASIL-HPV IMMUNIZATION SERIES Aged Out No longer eligible based on patient's age to complete this topic Hepatitis B Aged Out No longer eligi ble based on patient's age to complete this topic MENINGOCOCCAL (MENACTRA/MENVEO) Aged Out No longer eligible based on patient's age to complete this topic documented as of this encounter Medical Devices Implanted Type Area Automotive Product Specialist Device Identifier Shelf Expiration Date Model / Serial / Lot Valve Ce Aortic 21mm 3000tfx - [id number] Implanted:Qty : 1 on 10/03/2007 at [place] [facility] [place] Tissue - Non Human N/A: Heart [employer] 03/23/2009 3000TFX-2 1 / [id number] / documented as of this encounter Procedures Procedure Name Priority Date/Time Associated Diagnosis Comments VT ARTHROCENTESIS ASPIR&/INJ MAJOR JT/BURSA W/O US Routine 07/04/2023 2:04 PM EST Primary osteoarthritis of left knee documented in this encounter Results * VT ARTHROCENTESIS ASPIR&/INJ MAJOR JT/BURSA W/O US (07/04/2023 2:04 PM EST) Narrative Jack Whitmore MD - 07/04/2023 2:04 PM EST Jack Whitmore MD 07/04/2023 2:10 PM LG Joint Inj/Arthro: L knee on 07/04/2023 2:04 PM Indications: pain Details: 25 G needle, anterior approach Medications: (40mg of depomedrol and 1 ml of 2% lidocaine) Outcome: tolerated well, no immediate complications Procedure, treatment alternatives, risks and benefits explained, specific risks discussed. Consent was given by the patient. Immediately prior to procedure a time out was called to verify the correct patient, procedure, equipment, field technical support consultant and site/side marked as required. Patient was prepped and draped in the usual sterile fashion. Jack Whitmore MD PROCDOC FORM documented in this encounter Visit Diagnoses Diagnosis Primary osteoarthritis of left knee- Primary Primary localized osteoarthrosis, lower leg documented in this encounter Administered Medications Inactive Administered Medications - up to 3 most recent administrations Medication Order MAR Action Action Date Dose Rate Site Lidocaine (PF) 2 % (PF) inj 20 mg 20 mg, Intra-Articular, ONCE, On Sun07/04/23 at 1445, For 1 dose Given 07/04/2023 2:04 PM EST 20 mg Knee Left methylPREDNISolone acetate (Depo-Medrol) 40 MG/ML inj 40 mg 40 mg, Intra-Articular, ONCE, On Sun07/04/23 at 1445, For 1 dose Given 07/04/2023 2:04 PM EST 40 mg Knee Left documented in this encounter Advance Directives Latest Code Status on File Code Status Date Activated Date Inactivated Comments Full Code 10/03/2007 4:11 PM 10/17/2007 12:14 AM Care Teams Excavating Contractor Relationship Specialty Start Date End Date Brayan Gayle DO [address] [place] [address] PCP - General 09/17/18 documented as of this encounter
--- OUTSIDE RECORDS SUMMARY | 2023-08-18 08:36 | External Medical Summary | Summary of Care ---
Author Name Unknown Organization [facility] Address [address] [place] [address] Phone [phone] Care Team Providers Care Procurement Forester Name Role Phone EsaBrayan romero Primary Care Provider Reason for Visit * Reason Onset Date Comments Order Request 06/28/2023 prolia Encounter Details Date Type Department Care Team (Late st Contact Info) Description 06/28/2023 Telephone Rheumatology [address] [id number] [place] [address] Oskar Rodgers CRNP [facility] [employer] [place] [address] Order Request (prolia) Allergies Active Allergy Reactions Criticality Noted Date Comments Allopurinol Rash 12/23/2009 Cephalosporins 03/10/2019 Unknown Rrnmqzcn-Aytnxwmqt-Pwzgoeumtm 2018 Swelling, redness Omeprazole Rash High 07/30/2017 documented as of this encounter (statuses as of 06/28/2023) Medications Medication Sig Dispensed Refills Start Date [...] (toPROL XL) 1 daily 0 12/19/2022 Active Hospital, Clinic, or Other Facility Administered Medication Ordered Dose Route Frequency Start Date End Date Status Denosumab (Prolia) subcut inj 60 mgIndications:Senile osteoporosis 60 mg SC ONCE 07/04/2023 07/05/2023 Active documented as of this encounter (statuses as of 06/28/2023) Active Problems Problem Noted Date Diagnosed Date Coronary artery disease invo lving [place] coronary artery of [place] heart without angina pectoris 03/23/2020 Status post [...] as of this encounter (statuses as of 06/28/2023) Resolved Problems Problem Noted Date Diagnosed Date Resolved Date Hyponatremia 03/04/2014 12/24/2015 Injury of leg, left, superficial 11/30/2011 08/19/2012 Obesity, Class II, BMI 35-39 .9, isolated (see actual BMI) 01/03/2010 08/19/2012 Overview: Per Obesity Protocol, #19 Dyslipidemia, goal to be determined 07/01/2009 10/10/2012 Overview: Per Lipid Taxonomy. 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 ant icoagulant therapy 10/10/2007 [...] as of this encounter (statuses as of 06/28/2023) Immunizations Name Administration Dates Next Due COVID-19 mRNA, LNP-s, No Pre serve, 2-Dose Series (Moderna) 06/10/2021,09/13/2020,08/16/2020 Pneumococcal Conjugate Vacc, 13 Valent (Prevnar) 05/21/2015 Pneumococcal Polysaccharide PPV23 (Pneumovax) 12/09/2008,06/10/2002 SEASONAL INFLUENZA, PF, 6 M & Above, IM , (FLULAVAL or FLUZONE) 04/26/2018,05/08/2017 Seasonal Influenza, Quadriva lent Hd, 65+ [...] 35 Q uit: 02/19/1992 Smokeless Tobacco: Never Comments:quit 1992 Alcohol Use Standard Drinks/Week Comments [...] on file documented as of this encounter Miscellaneous Notes * Telephone Encounter - Aurelia Caro LPN - 06/28/2023 3:01 PM EST Chart reviewed and labs noted to be within normal limits. Patient has been seen within the last 12 months by a Rheumatology provider. Prolia authorization approved and updated in referral. Last injection has been > 6 months and 1 day. CAM orders pended for signature. documented in this encounter Plan of Treatment Upcoming Encounters Date Type Department Care Team (Late st Contact Info) Description 07/04/2023 1:30 PM EST Nurse Only Rheumatology [address] [place] [address] Pf, Nurse Rheum [facility]0 [facility] [place] [address] Health Maintenance Due Date Last Done Comments Zoster Vaccines (2 of 3) 11/19/2008 09/24/2008 DTaP,Tdap,and Td Vaccines (1 - Tdap) 11/19/2011 11/18/2011, 02/03/2010 Albumin/Creatinine Ratio 08/11/2017 017, 08/25/2015, 02/08/2015, Additional history exists CKD PHOS USE SMARTSET 27721 02/13/201801/21, 08/11/2016, 08/25/2015, Additional history exists CKD HGB USE SMARTSET 55758 12/20/201812/20, 10/26/2017, 09/19/2017, Additional history exists Depression Screening 12/20/2018 12/20/2017 COVID-19 Vaccine ( season) 2023 06/10/2021, 09/13/2020, 08/16/2020 Influenza Vaccine (FLU shot) (#1) 2023 05/04/2021, 04/26/2018, 04/26/2018, Additional history exists DXA Scan 03/15/2024 03/15/2022, 06/0 02/2020, 10/09/2017, Additional history exists Pneumococcal Vaccine: 65+ Years Completed 05/21/2015, 12/09/2008, 06/10/2002 VITAMIN D LEVEL ONCE IN A LIFETIME-USE SMARTSET# [id number] Completed 01/01/2023, 08/03/2021, 04/26/2018, Additional history exists [...] this encounter Medical Devices Implanted Type Area E D Tech Device Identifier Shelf Expiration Date Model / Serial / Lot Valve Ce Aortic 21mm [id number] - [id number] Implanted:Qty : 1 on 10/03/2007 [place] [facility] [place] - Non Human N/A: Heart [employer] 03/23/2009 3000TFX-[id number] 1 / [id number] / documented as of this encounter Visit Diagnoses Diagnosis Senile osteoporosis- Primary documented in this encounter Advance Directives Latest Code Status on File Code Status Date Activated Date Inactivated Comments Full Code 10/03/2007 4:11 PM 10/17/2007 12:14 AM Care Teams Procurement Forester Relationship Specialty Start Date End Date Brayan Gayle DO [address] [facility] [address] PCP - General 09/17/18 documented as of this encounter
--- NOTE | 2023-08-18 08:42 | Emergency Department Note ---
Impression & Plan Pleural effusion, Atrial fibrillation, new onset, Hypomagnesemia, Elevated troponin I level ED Provider Note NAME: DIYA ROSE AGE: 88 SEX: F : 1935 ARRIVES VIA: Ambulance INFORMANT: Patient, EMS personnel ED PROVIDER(S): Lam Jernigan DO CHIEF COMPLAINT: Shortness of breath HPI: The patient is an 88-year-old female who resides at [facility] who presented to the emergency department for evaluation of shortness of breath. The patient does have cardiac history including CHF and an NSTEMI in the past. She has had heart failure in the past as well. She started having worsening symptoms over the last 24 hours. 911 was called this morning and the paramedics evaluated the patient. The patient was felt to be in CHF. She has had orthopnea as well as lower extremity swelling. She was noted to have elevated blood pressure as well as a fast heart rate. The patient was treated with nitroglycerin prior to arrival. She was also placed on supplemental oxygen. She states that she feels much better at this time. The patient denies having any black stool. She denies having any difficulty urinating. She does have underlying renal insufficiency according to her past medical history. ROS: See above HPI for pertinent positives & negatives. A total of 10 systems reviewed and were otherwise negative. PAST MEDICAL HISTORY: See Below PAST SURGICAL HISTORY: See Below FAMILY HISTORY: See Below SOCIAL HISTORY: See Below HOME MEDICATIONS: See Below ALLERGIES: See Below VITALS: See Below PHYSICAL EXAMINATION: GENERAL: Patient is awake alert in no acute distress patient is resting comfortably and showing no signs of anxiety EYES: The conjunctivae are clear. The pupils are round and reactive. EARS, NOSE, MOUTH AND THROAT: The nose is without any evidence of any deformity. NECK: The neck is nontender and supple. JVD was noted. RESPIRATORY: Diminished breath sounds are noted with rales throughout. There is mild conversational dyspnea. CARDIOVASCULAR: Regular rate and rhythm noted there no murmurs rubs or gallops normal S1 normal S2. GASTROINTESTINAL: The abdomen is soft. Abdomen is nontender. MUSCULOSKELETAL/EXTREMITIES: There is no evidence of gross deformity full range of motion is noted in the hips and shoulders. SKIN: There is no obvious evidence of any rash. Pedal edema was noted bilaterally. Skin was warm and dry. NEUROLOGIC: Patient is awake alert and oriented to person place but not time. Strength was symmetric but diminished. MEDICAL DECISION MAKING: The patient is an 88-year-old female who presented to the emergency department for shortness of breath. The patient did have dyspnea on exertion as well as orthopnea. Physical exam appears to be consistent with CHF. She also appears to be in atrial fibrillation at this time. Compared to previous EKG the atrial fibrillation may be new. She was found have a low magnesium. She was treated with nitroglycerin prior to arrival which seemed to improve her symptoms. She was also placed on supplemental oxygen. I discussed patient's laboratory and radiographic studies with her. She was treated with magnesium replacement as well as IV Lasix in the emergency department. I discussed her condition with the on-call [facility] hospitalist. They have agreed to evaluate the patient in the emergency department for further management and disposition. The patient has bilateral pleural effusions which appears new compared to a year ago. I do feel this most likely represents the patient's shortness of breath. Triage Nursing notes reviewed. Prior medical records reviewed Vital Signs: reviewed and remarkable for elevated blood pressure. Differential diagnosis: Reactive airway disease, pneumonia, pneumothorax, COPD, CHF, infections, cardiac ischemia, pulmonary embolism, musculoskeletal, gastrointestinal, as well as other pathologies. ER treatment provided: See below Diagnostics interpreted by me: ECG: EKG was obtained in the emergency department. My interpretation is atrial fibrillation at 99 bpm. There were no PVCs. LVH was noted by voltage criteria. There was ST segment depressions noted in the low lateral leads. This was compared to a tracing from August 07, 2022. On the previous tracing sinus rhythm was noted. This is been replaced with atrial fibrillation. Cardiac Monitoring: An order was placed for continuous cardiac monitoring. The monitor shows a rate of 90 bpm with atrial fibrillation. Laboratory studies: As stated above and show below. Imaging studies: See below. Radiographic imaging was reviewed by myself Consultation(s): I discussed this case with Dr. Eisenberg [facility]. Past Med/Surg History Medical History (Updated 08/18/23 @ 09:48 by Lam Jernigan DO) Chronic diastolic heart failure Dyslipidemia NSTEMI (non-ST elevated myocardial infarction) 09/2019 Chronic kidney disease, stage 3 (moderate) Gout Osteoarthritis Diverticular disease Cervical cancer 1997--sx History of colon polyps Aortic valve stenosis Schatzki's ring History of esophageal dilatation History of falling Polymyalgia rheumatica Hypertension Gout Status post closed fracture of right femur Surgical History History of vein stripping x2 H/O total hysterectomy History of colonoscopy H/O cataract extraction History of cardiac cath 08/20/2007 History of breast biopsy History of cholecystectomy History of esophagogastroduodenoscopy (EGD) H/O aortic valve replacement 09/[address] [facility] [place] Family History Mother Rectal cancer Social History Smoking Status: Former smoker Tobacco Type: Cigarettes Second Hand Exposure: No; Do You Dip or Chew Tobacco: No; Hx Alcohol Use: No Hx Substance Use: No Preferred Language: Pashto Communication Ability: Impaired Sheet Tester Required: No Beliefs That Will Affect Care: None Current Living Situation: Personal Care Facility Current Living Situation Comment: [facility] current occupational status: retired Feels Safe at Home: Yes Assistive Devices: Walker Allergies Allergies Allergy/AdvReac Type Severity Reaction Status Date / Time allopurinol Allergy Unknown ON [place] Verified 08/04/22 02:12 [facility] Cephalosporins Allergy Unknown ON [place] Verified 08/04/22 02:12 [facility] gramicidin D [From Neocidin] Allergy Unknown Redness of Verified 08/04/22 02:13 Skin neomycin [From Neocidin] Allergy Unknown Redness of Verified 08/04/22 02:13 Skin polymyxin B [From Neocidin] Allergy Unknown Redness of Verified 08/04/22 02:13 Skin Home Meds Home Medications Medication Instructions Recorded Confirmed aspirin 81 mg tablet,delayed 81 mg PO DAILY 06/11/18 08/04/22 release (Lyly Low Dose Aspirin) cholecalciferol (vitamin D3) 25 1,000 unit PO DAILY 06/11/18 08/04/22 mcg (1,000 unit) tablet docusate sodium 100 mg capsule 100 mg PO BID 06/11/18 08/04/22 furosemide 20 mg tablet 20 mg PO DAILYBB 06/11/18 08/04/22 acetaminophen 500 mg tablet 500 mg PO Q4 PRN Pain 07/29/18 08/04/22 (Acetaminophen Extra Strength) ferrous sulfate 325 mg (65 mg 325 mg PO TID 07/29/18 08/04/22 iron) tablet aluminum-mag hydroxide-simethicone 10 - 20 ml PO QID PRN 09/27/19 08/04/22 400 mg-400 mg-40 mg/5 mL oral susp HEARTBURN/INDIGESTION/GAS (Antacid-Simethicone) dextromethorphan-guaifenesin 30 1 tab PO Q12H PRN Congestion 09/27/19 08/04/22 mg-600 mg tablet extended imxzthw20 hr (Mucinex DM) dimethicone-zinc oxide topical 1 applic topical DAILY PRN Skin 09/27/19 08/04/22 cream (Rosemarie Protect Irritation (dimethicone-zinc oxide) topical cream) fexofenadine 180 mg tablet 180 mg PO DAILY 09/27/19 08/04/22 hydrocortisone 1 % topical cream 1 applic topical DIRECTED PRN 09/27/19 08/04/22 Rash sennosides 8.6 mg tablet 8.6 mg PO DAILY PRN Constipation 09/27/19 08/04/22 amoxicillin 500 mg capsule 2,000 mg PO DAILY PRN 1 hour prior 08/04/22 08/04/22 to dental work docosanol 10 % topical cream 1 applic topical UD PRN Cold Sores 08/04/22 08/04/22 (Abreva) loperamide 2 mg tablet 2 mg PO UD PRN Diarrhea 08/04/22 08/04/22 (Anti-Diarrheal (loperamide)) nystatin 100,000 unit/gram topical 1 applic topical BID PRN fungus 08/04/22 08/04/22 cream omeprazole 20 mg capsule,delayed 20 mg PO DAILY 08/04/22 08/04/22 release peg 400-propylene glycol (PF) 0.4 1 drp OPB BID 08/04/22 08/04/22 %-0.3 % eye drops in a dropperette (Systane (PF)) psyllium seed (sugar) oral powder 1 tbsp PO DAILY 08/04/22 08/04/22 (Metamucil [place] oral powder) trolamine salicylate 10 % topical 1 applic topical QID PRN Pain 08/04/22 08/04/22 cream (Aspercreme) Previous Rx's Medication Instructions Recorded atorvastatin 40 mg tablet 40 mg PO DAILY #30 tabs 10/01/19 nitroglycerin 0.4 mg sublingual 0.4 mg sublingual UD PRN chest 10/01/19 tablet (Nitrostat) pain #25 tabs isosorbide mononitrate 30 mg 30 mg PO QAM #30 tabs 10/27/19 tablet,extended release 24 hr metoprolol succinate 50 mg 50 mg PO DAILY #30 tabs 08/06/22 tablet,extended release 24 hr cyanocobalamin (vitamin B-12) 500 1,000 mcg (2 x 500 mcg) PO QAM #60 08/09/22 mcg tablet tabs lisinopril 10 mg tablet 30 mg (3 x 10 mg) PO DAILY #90 tabs 08/09/22 Results & Data (ED) Vital Signs Vital Signs - 24 hr 08/18/23 08:14 08/18/23 08:14 08/18/23 08:14 Temperature 37.0 C Temperature Source Oral Pulse Rate 78 Respiratory Rate 16 16 Blood Pressure 151/91 H Blood Pressure Mean 111 Pulse Oximetry 94 97 Oxygen Delivery Method Room Air Room Air Sepsis Recent Fever Within 48 Hours No Sepsis New/Unexplained Change in Mental Status N/A Sepsis Action Taken by Nursing No Action Required 08/18/23 08:44 Temperature Temperature Source Pulse Rate 90 Respiratory Rate Blood Pressure Blood Pressure Mean Pulse Oximetry Oxygen Delivery Method Sepsis Recent Fever Within 48 Hours Sepsis New/Unexplained Change in Mental Status Sepsis Action Taken by Residential Medications Current Medication List: was personally reviewed by me Laboratory Data Attestation: I reviewed the patient's lab results. 08/18/23 08:45 08/18/23 08:45 Lab Results 08/18/23 Range/Units 08:45 WBC 6.28 (4.8-10.8) K/ul RBC 3.41 L (4.20-5.40) M/uL Hgb 10.8 L (12.0-16.0) g/dl Hct 35.0 L (37.0-47.0) % MCV 102.6 H (80.0-100.0) fL MCH 31.7 (25.0-34.0) pg MCHC 30.9 L (32.0-36.0) g/dL RDW Std Deviation 51.4 H (36.4-46.3) fL RDW Coeff of Jimmie 13.5 (11.5-14.5) % Plt Count 172 (130-400) K/uL MPV 10.5 (9.4-12.4) fL Immature Gran % (Auto) 0.3 % Neut % (Auto) 72.7 % Lymph % (Auto) 12.7 % [place] % (Auto) 7.8 % Eos % (Auto) 5.7 % Baso % (Auto) 0.8 % Neut # (Auto) 4.56 (1.40-6.50) K/uL Lymph # (Auto) 0.80 L (1.20-3.40) K/uL [place] # (Auto) 0.49 (0.11-0.59) K/uL Eos # (Auto) 0.36 (0.00-0.50) K/uL Baso # (Auto) 0.05 (0.00-0.20) K/uL Immature Gran # (Auto) 0.02 (0.01-0.20) K/uL Sodium 140 (136-145) mmol/L Potassium 4.1 (3.5-5.1) mmol/L Chloride 104 (98-107) mmol/L Carbon Dioxide 32 (21-32) mmol/L Anion Gap 4 (3-11) BUN 21 (6-23) mg/dl Creatinine 1.02 (0.6-1.2) mg/dl Est Cr Clr Drug Dosing 34.4 ml/min Est GFR ( Amer) 57.3 ml/min Est GFR (Non-Af Amer) 49.4 ml/min BUN/Creatinine Ratio 20.6 H (10-20) Glucose 120 H (70-99(Fasting)) mg/dl Calcium 10.0 (8.6-10.3) mg/dl Magnesium 1.6 L (1.7-2.4) mg/dl Total Bilirubin 1.3 H (0.2-1.0) mg/dl AST 18 (13-39) U/L ALT 21 (7-52) U/L Alkaline Phosphatase 70 (34-104) U/L Troponin I High Sens 24.5 H (0-14) pg/ml B-Natriuretic Peptide 409 H (0-100) pg/ml Total Protein 6.2 (6.0-8.3) gm/dl Albumin 3.9 (3.4-5.0) gm/dl Globulin 2.3 L (2.5-4.0) gm/dl Albumin/Globulin Ratio 1.7 (0.9-2) TSH 1.979 (0.300-4.500) uIu/ml Imaging Data Attestation: I personally reviewed and interpreted this imaging study as follows: My Impression: 1 view chest x-ray was obtained in the emergency department. My interpretation is bilateral pleural effusions with signs of volume overload. Postsurgical changes were noted. This was compared to a chest x-ray from August 06, 2022. The pleural effusions appear new compared to previous. Final report pending. Radiologist's Impression: Chest X-Ray 08/18/23 08:37 XR chest 1V portable CLINICAL HISTORY: Dysrhythmia TECHNIQUE: Single frontal radiograph of the chest was obtained. Comparison: Comparison is made to chest radiograph 08/06/2022 FINDINGS: Median sternotomy wires are unchanged. Calcified aortic knob is seen. Prominence and cephalization of the vasculature is seen. Moderate bilateral pleural effusions. IMPRESSION: 1. Cardiomegaly and mild pulmonary edema. 2. Moderate bilateral pleural effusions are seen. ACT 112: Negative or not required by law. Electronically signed by: Socrates Mcclelland M.D. 08/18/2023 9:05 AM Discharge Plan Visit Data Chief Complaint: Shortness of Breath/Dyspnea ED Provider: Lam Jernigan Discharge Problem: Pleural effusion, Atrial fibrillation, new onset, Hypomagnesemia, Elevated troponin I level Patient Disposition: Being Evaluated by Hospitalist Forms Stand Alone Forms: My [facility] Prescriptions Prescriptions: No Action aspirin [Lyly Low Dose Aspirin] 81 mg Tablet,Delayed Release (Dr/Ec) 81 mg PO DAILY docusate sodium 100 mg Capsule 100 mg PO BID furosemide 20 mg Tablet 20 mg PO DAILYBB cholecalciferol (vitamin D3) 1,000 unit Tablet 1,000 unit PO DAILY acetaminophen [Acetaminophen Extra Strength] 500 mg Tablet 500 mg PO Q4 MDD 3 GRAMS/24 HOURS PRN (Reason: Pain) ferrous sulfate 325 mg (65 mg iron) Tablet 325 mg PO TID sennosides 8.6 mg Tablet 8.6 mg PO DAILY PRN (Reason: Constipation) fexofenadine 180 mg Tablet 180 mg PO DAILY hydrocortisone 1 % Cream 1 applic TOPICAL DIRECTED PRN (Reason: Rash) Mucinex DM 30-600 mg Tablet Extended Release 12 Hr 1 tab PO Q12H PRN (Reason: Congestion) alum-mag hydroxide-simeth [Antacid-Simethicone] 400-400-40 mg/5 mL Suspension 10 - 20 ml PO QID PRN (Reason: HEARTBURN/INDIGESTION/GAS) Rosemarie Protect(dimethicone-zinc) Cream 1 applic TOPICAL DAILY PRN (Reason: Skin Irritation) nitroglycerin [Nitrostat] 0.4 mg Tablet, Sublingual 0.4 mg sublingual UD PRN (Reason: chest pain) Qty: 25 2RF Rx Instructions: dissolve 1 tablet under tongue as needed , may repeat x 3 doses for chest pain atorvastatin 40 mg tablet 40 mg PO DAILY Qty: 30 5RF isosorbide mononitrate 30 mg Tablet Extended Release 24 Hr 30 mg PO QAM Qty: 30 0RF omeprazole 20 mg Capsule,Delayed Release(Dr/Ec) 20 mg PO DAILY Systane (PF) 0.4-0.3 % Dropperette 1 drp OPB BID amoxicillin 500 mg capsule 2,000 mg PO DAILY PRN (Reason: 1 hour prior to dental work) docosanol [Abreva] 10 % Cream 1 applic TOPICAL UD PRN (Reason: Cold Sores) Rx Instructions: may keep at bedside loperamide [Anti-Diarrheal (loperamide)] 2 mg Tablet 2 mg PO UD MDD 4 PRN (Reason: Diarrhea) Rx Instructions: take 2 tablets after 1st loose stool, then 1 tablet thereafter each loose stool max of 4 tabs in 24 hours nystatin 100,000 unit/gram Cream 1 applic TOPICAL BID PRN (Reason: fungus) trolamine salicylate [Aspercreme] 10 % Cream 1 applic TOPICAL QID PRN (Reason: Pain) Rx Instructions: may keep at bedside for independent use Metamucil [place] Powder 1 tbsp PO DAILY Rx Instructions: mix into 6-8 ounces of fluid and drink metoprolol succinate 50 mg Tablet Extended Release 24 Hr 50 mg PO DAILY Qty: 30 0RF cyanocobalamin (vitamin B-12) 500 mcg Tablet 1,000 mcg PO QAM Qty: 60 1RF lisinopril 10 mg Tablet 30 mg PO DAILY Qty: 90 0RF Referrals Referrals: [facility] [Primary Care Provider] -
--- NOTE | 2023-08-18 09:06 | XRay Report ---
XR chest 1V portable CLINICAL HISTORY: Dysrhythmia TECHNIQUE: Single frontal radiograph of the chest was obtained. Comparison: Comparison is made to chest radiograph 08/06/2022 FINDINGS: Median sternotomy wires are unchanged. Calcified aortic knob is seen. Prominence and cephalization of the vasculature is seen. Moderate bilateral pleural effusions. IMPRESSION: 1. Cardiomegaly and mild pulmonary edema. 2. Moderate bilateral pleural effusions are seen. ACT 112: Negative or not required by law. Electronically signed by: Socrates Mcclelland M.D. 08/18/2023 9:05 AM
[2023-08-18 09:07] LABS: Basophils # (auto) 0.05 K/uL (0.00-0.20); Basophils % (auto) 0.8 %; Eosinophils # (auto) 0.36 K/uL (0.00-0.50); Eosinophils % (auto) 5.7 %; Hemoglobin 10.8 g/dl (12.0-16.0); Immature Granulocytes # (auto) 0.02 K/uL (0.01-0.20); Immature Granulocytes % (auto) 0.3 %; Lymphocytes % (auto) 12.7 %; Mean Corpuscular Hemoglobin 31.7 pg (25.0-34.0); Mean Corpuscular Hgb Conc 30.9 g/dL (32.0-36.0); Mean Corpuscular Volume 102.6 fL (80.0-100.0); Mean Platelet Volume 10.5 fL (9.4-12.4); Monocytes # (auto) 0.49 K/uL (0.11-0.59); Monocytes % (auto) 7.8 %; Neutrophils # (auto) 4.56 K/uL (1.40-6.50); Neutrophils % (auto) 72.7 %; Platelet Count 172 K/uL (130-400); RDW Coefficient of Variation 13.5 % (11.5-14.5); RDW Standard Deviation 51.4 fL (36.4-46.3); Red Blood Count 3.41 M/uL (4.20-5.40); White Blood Count 6.28 K/ul (4.8-10.8)
[2023-08-18 09:24] LABS: Albumin Globulin Ratio 1.7 (0.9-2); Albumin Level 3.9 gm/dl (3.4-5.0); BUN Creatinine Ratio 20.6 (10-20); Bilirubin,Total 1.3 mg/dl (0.2-1.0); Creatinine Clr Calc Pharmacy 34.4 ml/min; Est GFR (African American) 57.3 ml/min; Est GFR (Non-African American) 49.4 ml/min; Globulin 2.3 gm/dl (2.5-4.0); Magnesium 1.6 mg/dl (1.7-2.4); Potassium 4.1 mmol/L (3.5-5.1); Total Protein 6.2 gm/dl (6.0-8.3)
[2023-08-18 09:29] LABS: Troponin I High Sensitivity 24.5 pg/ml (0-14)
[2023-08-18 09:38] LABS: Thyroid Stimulating Hormone 1.979 uIu/ml (0.300-4.500)
[2023-08-18 10:04] LABS: Adenovirus PCR Not Detected (NotDetected); Bordetella parapertussis PCR Not Detected (NotDetected); Bordetella pertussis PCR Not Detected (NotDetected); Chlamydia pneumoniae PCR Not Detected (NotDetected); Coronavirus 229E PCR Not Detected (NotDetected); Coronavirus CoV-2 (COVID19)PCR Not Detected (NotDetected); Coronavirus HKU1 PCR Not Detected (NotDetected); Coronavirus NL63 PCR Not Detected (NotDetected); Coronavirus OC43PCR Not Detected (NotDetected); Human Metapneumovirus PCR Not Detected (NotDetected); Influenza A PCR Not Detected (NotDetected); Influenza B PCR Not Detected (NotDetected); Mycoplasma pneumoniae PCR Not Detected (NotDetected); Parainfluenza Virus 1 PCR Not Detected (NotDetected); Parainfluenza Virus 2 PCR Not Detected (NotDetected); Parainfluenza Virus 3 PCR Not Detected (NotDetected); Parainfluenza Virus 4 PCR Not Detected (NotDetected); Respiratory Syncytial VirusPCR Not Detected (NotDetected); Rhinovirus/Enterovirus PCR Not Detected (NotDetected)
--- NOTE | 2023-08-18 10:26 | Electrocardiogram Report ---
Test Reason : Blood Pressure : / mmHG Vent. Rate : 099 BPM Atrial Rate : 000 BPM P-R Int : 000 ms QRS Dur : 078 ms QT Int : 342 ms P-R-T Axes : 000 050 058 degrees QTc Int : 438 ms Atrial fibrillation with premature ventricular or aberrantly conducted complexes Minimal voltage criteria for LVH, may be normal variant Abnormal ECG When compared with ECG of 07-AUG-2022 09:44, Atrial fibrillation has replaced Sinus rhythm Vent. rate has increased BY 43 BPM T wave amplitude has decreased in Lateral leads Confirmed by Lam Garcia ([id number]) on 08/18/2023 10:25:54 AM Referred By: Confirmed By:Lam Garcia
--- NOTE | 2023-08-18 10:34 | History & Physical Report ---
Date of Service August 18, 2023 Assessment & Plan (1) CHF exacerbation: Plan: Acute CHF exacerbation likely given known cardiac history. Patient denies any dietary indiscretions with salt or significant medication changes recently. She is at a facility so medication compliance is assumed. She has already had a brisk response to initial Lasix 40mg IV. Will plan to give an additional 40mg IV this afternoon. Will place nitro paste to chest wall now given her rising blood pressure. New onset atrial fibrillation present which may also be contributing to her feeling of dyspnea in addition to the acute bilateral pleural effusions and heart failure. Doubt ACS given no ST changes on EKG . She does have a mildly elevated HS trop of 24.5 with repeat 26.9. Will cont to trend trop, but flat trend so far is reassuring that ACS is less likely an issue. Cardiology consult placed. Heparin drip started. (2) Atrial fibrillation, new onset: Plan: Likely related to CHF exacerbation/has h/o CAD. Start heparin drip pending definitive recommendations by cardiology for ongoing anticoagulation. CHADS- Vasc is 6 points which would indicate AC is appropriate for stroke risk reduction. However, she is a fall risk and has dementia which will need to be considered. Heart rate is 90-120 bpm. Will cont home metoprolol succinate at 50mg daily and titrate this as needed for resting HR<110. Echo ordered. (3) Pleural effusion: Plan: Acute since CXR from 08/06 which was clear. Likely related to acute heart failure exacerbation. Cont diuretics and repeat CXR in the next couple of days. (4) Hypoxia: Plan: 2/2 pleural effusions and heart failure, Wean oxygen as tolerated. (5) Hypomagnesemia: Plan: Replace and repeat in am. (6) Elevated troponin I level: Plan: Likely related to demand ischemia. Plan as noted above. (7) CKD (chronic kidney disease), stage III: Plan: chronic, creat at her baseline. Cont to monitor BMP while hospitalized. (8) S/P AVR: Plan: h/o bioprosthetic AoV replacement in 2007. (9) Anemia: Plan: chronic, stable. No evidence of bleeding. Trend CBC in am as patient is on heparin drip now. DNR as discussed with patient on admission and this is also documented in her PCF records. DVT proph-heparin drip Dispo-to PCU I spent a total of 75minutes coordinating, documenting, and providing care for this patient excluding time spent in the performance of separately billed services DO [facility] History of Present Illness Chief Complaint: SOB Primary Care Provider: Jim CareCandice [facility] Alva 88 yo F with dementia [facility], for concerns of shortness of breath. She cannot tell me for how long she has had symptoms but states that she noticed not being able to walk but a few steps because of shortness of breath. Typically, she ambulates with her walker to the dining molina without issues. She is somewhat short of breath at rest today. She denies any chest pain, but states she feels she is having difficulty catching her breath. She was noted to be in atrial fibrillation today, which is a new diagnosis. Her cardiac history includes bioprosthetic aortic valve replacement in 2007 [place] [facility] [place] In September 2019 she presented with heart failure and a NSTEMI and declined heart catheterization only to return two weeks later to the hospital with additional chest pain and a NSTEMI. She underwent cardiac catheterization at that point which showed a high grade stenosis in the mid LAD as well as a high grade stenosis in the right coronary artery with collaterals. CAD s/p PCI. Symptoms today reportedly began in the last 24 hours. Per ER notes, EMS noted orthopnea nad lower extremity swelling as well as tachycardia and elevated blood pressure. She was treated with nitroglycerin in the field and placed on supplemental oxygen with improvement in symptoms. On arrival to the ER vitals were 151/91, P 90, R 16, afebrile, oxygenating 97% on room air. Some conversational dyspnea was noted and there diminished breath sounds noted with rales throughout. Mag was replaced. CXR revealed bilateral pleural effusions that are new compared to CXR from 08/06/23. A urinary catheter was placed and she was started on Lasix 40mg IV. HS trop was 24.5 with repeat pending. BNP is 409, respiratory biofire panel is pending. Her BP increased to 195/130 and nitro paste was administered. She has had 800cc urine out in response to the 40mg IV given 1-2 hours ago. Allergies Allergy/AdvReac Type Severity Reaction Status Date / Time allopurinol Allergy Unknown ON [place]UM[place] Verified 08/18/23 11:23 [facility] L[facility] Cephalosporins Allergy Unknown ON [place]MK[place] Verified 08/18/23 11:23 [facility] LIST gramicidin D [From Neocidin] Allergy Unknown Redness of Verified 08/18/23 11:23 Skin neomycin [From Neocidin] Allergy Unknown Redness of Verified 08/18/23 11:23 Skin polymyxin B [From Neocidin] Allergy Unknown Redness of Verified 08/18/23 11:23 Skin chocolate AdvReac Unknown Verified 08/18/23 11:28 Home Medications Medication Instructions Recorded Confirmed Type aspirin 81 mg tablet,delayed 81 mg PO DAILY 06/11/18 08/18/23 History release (Lyly Low Dose Aspirin) docusate sodium 100 mg capsule 100 mg PO BID 06/11/18 08/18/23 History furosemide 20 mg tablet 20 mg PO MOWEFR@0900 06/11/18 08/18/23 History acetaminophen 500 mg tablet 500 mg PO Q4 PRN Pain 07/29/18 08/18/23 History (Acetaminophen Extra Strength) ferrous sulfate 325 mg (65 mg 325 mg PO TID 07/29/18 08/18/23 History iron) tablet aluminum-mag hydroxide-simethicone 10 - 20 ml PO QID PRN 09/27/19 08/18/23 History 400 mg-400 mg-40 mg/5 mL oral susp HEARTBURN/INDIGESTION/GAS (Antacid-Simethicone) dimethicone-zinc oxide topical 1 applic topical DAILY PRN Skin 09/27/19 08/18/23 History cream (Rosemarie Protect Irritation (dimethicone-zinc oxide) topical cream) fexofenadine 180 mg tablet 180 mg PO DAILY 09/27/19 08/18/23 History sennosides 8.6 mg tablet 8.6 mg PO DAILY Constipation 09/27/19 08/18/23 History atorvastatin 40 mg tablet 40 mg PO DAILY #30 tabs 10/01/19 08/18/23 Rx nitroglycerin 0.4 mg sublingual 0.4 mg sublingual UD PRN chest 10/01/19 08/18/23 Rx tablet (Nitrostat) pain #25 tabs isosorbide mononitrate 30 mg 30 mg PO QAM #30 tabs 10/27/19 08/18/23 Rx tablet,extended release 24 hr amoxicillin 500 mg capsule 2,000 mg PO DAILY PRN 1 hour prior 08/04/22 08/18/23 History to dental work docosanol 10 % topical cream 1 applic topical UD PRN Cold Sores 08/04/22 08/18/23 History (Abreva) omeprazole 20 mg capsule,delayed 20 mg PO DAILY 08/04/22 08/18/23 History release peg 400-propylene glycol (PF) 0.4 1 drp OPB BID 08/04/22 08/18/23 History %-0.3 % eye drops in a dropperette (Systane (PF)) psyllium seed (sugar) oral powder 1 tbsp PO DAILY 08/04/22 08/18/23 History (Metamucil [place] oral powder) trolamine salicylate 10 % topical 1 applic topical QID PRN Pain 08/04/22 08/18/23 History cream (Aspercreme) metoprolol succinate 50 mg 50 mg PO DAILY #30 tabs 08/06/22 08/18/23 Rx tablet,extended release 24 hr cyanocobalamin (vitamin B-12) 500 1,000 mcg (2 x 500 mcg) PO QAM #60 08/09/22 08/18/23 Rx mcg tablet tabs cholecalciferol (vitamin D3) 50 50 mcg PO DAILY 08/18/23 08/18/23 History mcg (2,000 unit) tablet (Vitamin D3) diphenhydramine HCl 25 mg capsule 25 mg PO HS PRN allergies 08/18/23 08/18/23 History (Benadryl) lisinopril 30 mg tablet 30 mg PO DAILY 08/18/23 08/18/23 History Past Med/Surg History Medical History (Updated 08/18/23 @ 10:33 by Roya Eisenberg DO) Dementia Chronic diastolic heart failure Dyslipidemia NSTEMI (non-ST elevated myocardial infarction) 09/2019 Chronic kidney disease, stage 3 (moderate) Gout Osteoarthritis Diverticular disease Cervical cancer 1997--sx History of colon polyps Aortic valve stenosis Schatzki's ring History of esophageal dilatation History of falling Polymyalgia rheumatica Hypertension Gout Status post closed fracture of right femur Surgical History History of vein stripping x2 H/O total hysterectomy History of colonoscopy H/O cataract extraction History of cardiac cath 08/20/2007 History of breast biopsy History of cholecystectomy History of esophagogastroduodenoscopy (EGD) H/O aortic valve replacement 09[place] [facility] [place] Family History Mother Rectal cancer Social History Smoking Status: Former smoker Tobacco Type: Cigarettes Second Hand Exposure: No; Do You Dip or Chew Tobacco: No; Hx Alcohol Use: No Hx Substance Use: No Preferred Language: Palauan Communication Ability: Impaired It Business Analyst Required: No Beliefs That Will Affect Care: None Current Living Situation: Personal Care Facility Current Living Situation Comment: [facility] current occupational status: retired Feels Safe at Home: Yes Assistive Devices: Walker Physical Exam Physical Exam: CONSTITUTIONAL: WNWD, vitals as above, generally well-appearing, NAD EYES: pupils are round and equal bilaterally, normal conjunctivae, no scleral icterus ENT: external ear and nose normal, oropharynx clear, MMM NECK: trachea midline RESPIRATORY: no breath sounds audible at bilateral lung bases, with some aircraft tool maker ckles noted in mid posterior lung kauffman bilaterally, mildly increased respiratory effort, mildly hypoxic at 97% on 1LPM via nasal canula. CARDIOVASCULAR: irregular rate and rhythm, S1 and 2 heard without murmurs, gallops or rubs, no JVD, no peripheral edema, CHEST: inspection of chest was normal GASTROINTESTINAL: soft, nontender, ND, no guarding MUSCULOSKELETAL: strength 5/5 throughout, head is normocephalic and atraumatic SKIN: warm and dry, NEUROLOGIC: CN 2-12 grossly intact, no sensory deficit, normal cognition, normal speech, no tremor PSYCHIATRIC: alert cooperative and oriented to person and place but not time. Euthymic mood, makes good eye contact, language grossly intact, recent and remote memory grossly intact. Results & Data Results & Data Vital Signs (Past 12 Hours) Vital Signs Temp Pulse Resp BP Pulse Ox O2 Del Method 08/18/23 08:44 90 08/18/23 08:14 16 97 08/18/23 08:14 Room Air 08/18/23 08:14 37.0 C 78 16 151/91 H 94 Room Air Laboratory Results Short CBC 08/18/23 Range/Units 08:45 WBC 6.28 (4.8-10.8) K/ul Hgb 10.8 L (12.0-16.0) g/dl Hct 35.0 L (37.0-47.0) % Plt Count 172 (130-400) K/uL BMP 08/18/23 08:45 Sodium 140 Potassium 4.1 Chloride 104 Carbon Dioxide 32 BUN 21 Creatinine 1.02 Glucose 120 H Calcium 10.0 Liver Function 08/18/23 Range/Units 08:45 Total Bilirubin 1.3 H (0.2-1.0) mg/dl AST 18 (13-39) U/L ALT 21 (7-52) U/L Alkaline Phosphatase 70 (34-104) U/L Albumin 3.9 (3.4-5.0) gm/dl Diagnostic Findings Chest X-Ray 08/18/23 08:37 XR chest 1V portable CLINICAL HISTORY: Dysrhythmia TECHNIQUE: Single frontal radiograph of the chest was obtained. Comparison: Comparison is made to chest radiograph 08/06/2022 FINDINGS: Median sternotomy wires are unchanged. Calcified aortic knob is seen. Prominence and cephalization of the vasculature is seen. Moderate bilateral pleural effusions. IMPRESSION: 1. Cardiomegaly and mild pulmonary edema. 2. Moderate bilateral pleural effusions are seen. ACT 112: Negative or not required by law. Electronically signed by: Socrates Mcclelland M.D. 08/18/2023 9:05 AM Code Status & VTE Plan VTE Prophylaxis Plan VTE Prophylaxis will be ordered: Yes (1) CHF exacerbation Heart failure type: diastolic Qualified Code(s): I50.33 - Acute on chronic diastolic (congestive) heart failure
[2023-08-18] MEDS: FUROSEMIDE 40 MG/4 ML VIAL IV ONE (10:36)
[2023-08-18] MEDS: MAGNESIUM SULFATE / D5W 1 GM/100 ML BAG IV STA (10:36)
[2023-08-18] MEDS: NITROGLYCERIN 2% OINTMENT 30GM TUBE EXT SCH (11:31)
[2023-08-18] MEDS ORDERED: Heparin IV Adult Wt-Based Standard w/ INITIAL Bolus Protocol IV STA (11:46)
[2023-08-18] MEDS ORDERED: POLYETHYLENE (MIRALAX) 17 GM PACK PO PRN (12:00)
[2023-08-18] MEDS ORDERED: ACETAMINOPHEN 325 MG TAB PO PRN (12:00)
[2023-08-18] MEDS ORDERED: TROLAMINE SALICYLATE 10% CRM 255 APPLN/85 GM TUBE EXT PRN (12:01)
[2023-08-18] MEDS ORDERED: ARTIFICIAL TEARS OP PRN (12:08)
[2023-08-18 12:09] LABS: ANTI-Xa, UFH(UnfractionatedHep < 0.10 IU/ml (0.3-0.7); Partial Thromboplastin Ratio 0.9; Partial Thromboplastin Time 26 Seconds (21-31)
[2023-08-18] MEDS: HEPARIN SOD (PORCINE) 1000 UNIT/ML IV ONE (12:11)
[2023-08-18] MEDS: HEPARIN SODIUM/DEXTROSE 25,000 UNITS/500 ML BAG IV SCH (12:12)
--- NOTE | 2023-08-18 13:26 | Cardiology Progress Note ---
Date of Service August 18, 2023 Assessment & Plan Admission and Anticipated Discharge Date Admission Date: August 18, 2023 Subjective Pt seen in cardiology follow up. Comfortable, eating his lung. Telemetry reveals atrial fibrillation with ventricular rates in the 90-100s. Results & Data Vital Signs (Past 12 Hours) Vital Signs Temp Pulse Pulse Resp BP BP Pulse Ox 08/18/23 12:19 08/18/23 12:19 134 H 16 179/126 H 96 08/18/23 10:45 109 H 16 195/130 H 97 08/18/23 08:44 90 08/18/23 08:14 16 97 08/18/23 08:14 08/18/23 08:14 37.0 C 78 16 151/91 H 94 Pulse Ox O2 Del Method O2 Del Method O2 Flow Rate O2 Flow Rate 08/18/23 12:19 97 Nasal Cannula 1 08/18/23 12:19 Nasal Cannula 1 08/18/23 10:45 Nasal Cannula 1 08/18/23 08:44 08/18/23 08:14 08/18/23 08:14 Room Air 08/18/23 08:14 Room Air
--- NOTE | 2023-08-18 13:32 | Cardiology Consultation ---
Date of Consultation August 18, 2023 Assessment & Plan (1) CHF exacerbation: (2) Atrial fibrillation, new onset: Plan Acute on chronic heart failure. Ejection fraction yet to be determined, preserved ejection fraction noted at the time of most recent measurement in 2019, repeat echocardiogram pending. Atrial fibrillation, newly recognized. Underlying dementia * Mild troponin elevation, flat trend, consistent with underlying heart failure rather than acute coronary syndrome * Continue aspirin, unfractionated heparin for stroke prophylaxis, IV furosemide 40 mg twice daily, Imdur, metoprolol, lisinopril, atorvastatin. History of Present Illness Attending Physician: Roya Eisenberg, DO History of Present Illness Batsheva Dumas is an 88 year old female seen in cardiology consultation per the request of Dr Eisenberg for the evaluation of congestive heart failure and newly diagnosed atrial fibrillation with rapid ventricular response. Patient resides at [facility] and has a history of dementia. She was unable to provide me any details with regards to her cardiac history and therefore her past surgical and interventional cardiac history as outlined below was obtained via review of records. She states that she has had swelling but cannot tell me how long her legs have been swollen for. She was apparently transferred to the emergency department due to progressive shortness of breath. She has been found to be hypertensive and to be in atrial fibrillation with rapid ventricular response. Bilateral pleural effusions noted on chest x-ray. She has received a dose of IV diuretics and subjectively is comfortable at present. History: 1. 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 Angiographically normal coronary arteries 2007 3. Hypertension with chronic CKD stage III 4. Hyperlipidemia 5. Polymyalgia rheumatica with chronic anemia 6.NSTEMI, cardiac catheterization 10/24/2019 with findings of a 99% thrombotic occlusion of the proximal LAD, subtotal chronic ostial occlusion of RCA with distal right coronary artery filling retrograde from the left to right collaterals, patient therefore underwent successful PCI/drug-eluting stent to the proximal to mid LAD with a drug-eluting stent Allergies Allergy/AdvReac Type Severity Reaction Status Date / Time allopurinol Allergy Unknown ON [place] Verified 08/18/23 11:23 [facility] MED LIST Cephalosporins Allergy Unknown ON [place] Verified 08/18/23 11:23 [facility] LIST gramicidin D [From Neocidin] Allergy Unknown Redness of Verified 08/18/23 11:23 Skin neomycin [From Neocidin] Allergy Unknown Redness of Verified 08/18/23 11:23 Skin polymyxin B [From Neocidin] Allergy Unknown Redness of Verified 08/18/23 11:23 Skin chocolate AdvReac Unknown Verified 08/18/23 11:28 Home Medications Medication Instructions Recorded Confirmed Type aspirin 81 mg tablet,delayed 81 mg PO DAILY 06/11/18 08/18/23 History release (Lyly Low Dose Aspirin) docusate sodium 100 mg capsule 100 mg PO BID 06/11/18 08/18/23 History furosemide 20 mg tablet 20 mg PO MOWEFR@0900 06/11/18 08/18/23 History acetaminophen 500 mg tablet 500 mg PO Q4 PRN Pain 07/29/18 08/18/23 History (Acetaminophen Extra Strength) ferrous sulfate 325 mg (65 mg 325 mg PO TID 07/29/18 08/18/23 History iron) tablet aluminum-mag hydroxide-simethicone 10 - 20 ml PO QID PRN 09/27/19 08/18/23 History 400 mg-400 mg-40 mg/5 mL oral susp HEARTBURN/INDIGESTION/GAS (Antacid-Simethicone) dimethicone-zinc oxide topical 1 applic topical DAILY PRN Skin 09/27/19 08/18/23 History cream (Rosemarie Protect Irritation (dimethicone-zinc oxide) topical cream) fexofenadine 180 mg tablet 180 mg PO DAILY 09/27/19 08/18/23 History sennosides 8.6 mg tablet 8.6 mg PO DAILY Constipation 09/27/19 08/18/23 History atorvastatin 40 mg tablet 40 mg PO DAILY #30 tabs 10/01/19 08/18/23 Rx nitroglycerin 0.4 mg sublingual 0.4 mg sublingual UD PRN chest 10/01/19 08/18/23 Rx tablet (Nitrostat) pain #25 tabs isosorbide mononitrate 30 mg 30 mg PO QAM #30 tabs 10/27/19 08/18/23 Rx tablet,extended release 24 hr amoxicillin 500 mg capsule 2,000 mg PO DAILY PRN 1 hour prior 08/04/22 08/18/23 History to dental work docosanol 10 % topical cream 1 applic topical UD PRN Cold Sores 08/04/22 08/18/23 History (Abreva) omeprazole 20 mg capsule,delayed 20 mg PO DAILY 08/04/22 08/18/23 History release peg 400-propylene glycol (PF) 0.4 1 drp OPB BID 08/04/22 08/18/23 History %-0.3 % eye drops in a dropperette (Systane (PF)) psyllium seed (sugar) oral powder 1 tbsp PO DAILY 08/04/22 08/18/23 History (Metamucil [place] oral powder) trolamine salicylate 10 % topical 1 applic topical QID PRN Pain 08/04/22 08/18/23 History cream (Aspercreme) metoprolol succinate 50 mg 50 mg PO DAILY #30 tabs 08/06/22 08/18/23 Rx tablet,extended release 24 hr cyanocobalamin (vitamin B-12) 500 1,000 mcg (2 x 500 mcg) PO QAM #60 08/09/22 08/18/23 Rx mcg tablet tabs cholecalciferol (vitamin D3) 50 50 mcg PO DAILY 08/18/23 08/18/23 History mcg (2,000 unit) tablet (Vitamin D3) diphenhydramine HCl 25 mg capsule 25 mg PO HS PRN allergies 08/18/23 08/18/23 History (Benadryl) lisinopril 30 mg tablet 30 mg PO DAILY 08/18/23 08/18/23 History Patient History Medical History Dementia Chronic diastolic heart failure Dyslipidemia NSTEMI (non-ST elevated myocardial infarction) 09/2019 Chronic kidney disease, stage 3 (moderate) Gout Osteoarthritis Diverticular disease Cervical cancer 1997--sx History of colon polyps Aortic valve stenosis Schatzki's ring History of esophageal dilatation History of falling Polymyalgia rheumatica Hypertension Gout Status post closed fracture of right femur Surgical History History of vein stripping x2 H/O total hysterectomy History of colonoscopy H/O cataract extraction History of cardiac cath 08/20/2007 History of breast biopsy History of cholecystectomy History of esophagogastroduodenoscopy (EGD) H/O aortic valve replacement 09/2007 @ [facility] [place] Family History Mother Rectal cancer Social History Smoking Status: Former smoker Tobacco Type: Cigarettes Second Hand Exposure: No; Do You Dip or Chew Tobacco: No; Hx Alcohol Use: No Hx Substance Use: No Preferred Language: Kyrgyz Communication Ability: Impaired Dry Pan Feeder Required: No Beliefs That Will Affect Care: None Current Living Situation: Personal Care Facility Current Living Situation Comment: [facility] current occupational status: retired Feels Safe at Home: Yes Assistive Devices: Walker Review of Systems Review of Systems: Unobtainable due to cognitive status Physical Exam Constitutional: + thin; no acute distress Respiratory: no labored breathing and no cough Auscultation: + diminished lung sounds (decreased BS at the bases ); no crackles and no rales Cardiovascular: Rate/Rhythm: + tachycardic and + irregularly irregular Heart Sounds: + murmur (I/ SM) Extremities: + edema (2+ LE edema ) Gastrointestinal (Abdomen): normal bowel sounds, soft, nontender, no hepatosplenomegaly Neurologic: PERRL, EOMI, accommodation nl, no face palsy, no dysarthria Results & Data Vital Signs (Past 12 Hours) Vital Signs Temp Pulse Pulse Resp BP BP Pulse Ox 08/18/23 12:19 08/18/23 12:19 134 H 16 179/126 H 96 08/18/23 10:45 109 H 16 195/130 H 97 08/18/23 08:44 90 08/18/23 08:14 16 97 08/18/23 08:14 08/18/23 08:14 37.0 C 78 16 151/91 H 94 Pulse Ox O2 Del Method O2 Del Method O2 Flow Rate O2 Flow Rate 08/18/23 12:19 97 Nasal Cannula 1 08/18/23 12:19 Nasal Cannula 1 08/18/23 10:45 Nasal Cannula 1 08/18/23 08:44 08/18/23 08:14 08/18/23 08:14 Room Air 08/18/23 08:14 Room Air Laboratory Results Cardiac Enzymes 08/18/23 08/18/23 Range/Units 08:45 10:36 AST 18 (13-39) U/L Troponin I High Sens 24.5 H 26.9 H (0-14) pg/ml B-Natriuretic Peptide 409 H (0-100) pg/ml Coagulation 08/18/23 Range/Units 08:45 APTT 26 (21-31) Seconds B-Natriuretic Peptide 409 H (0-100) pg/ml CBC 08/18/23 Range/Units 08:45 WBC 6.28 (4.8-10.8) K/ul RBC 3.41 L (4.20-5.40) M/uL Hgb 10.8 L (12.0-16.0) g/dl Hct 35.0 L (37.0-47.0) % Plt Count 172 (130-400) K/uL Neut # (Auto) 4.56 (1.40-6.50) K/uL Lymph # (Auto) 0.80 L (1.20-3.40) K/uL Stanton # (Auto) 0.49 (0.11-0.59) K/uL Eos # (Auto) 0.36 (0.00-0.50) K/uL Baso # (Auto) 0.05 (0.00-0.20) K/uL Comprehensive Metabolic Panel 08/18/23 Range/Units 08:45 Sodium 140 (136-145) mmol/L Potassium 4.1 (3.5-5.1) mmol/L Chloride 104 (98-107) mmol/L Carbon Dioxide 32 (21-32) mmol/L BUN 21 (6-23) mg/dl Creatinine 1.02 (0.6-1.2) mg/dl Glucose 120 H (70-99(Fasting)) mg/dl Calcium 10.0 (8.6-10.3) mg/dl AST 18 (13-39) U/L ALT 21 (7-52) U/L Alkaline Phosphatase 70 (34-104) U/L Total Protein 6.2 (6.0-8.3) gm/dl Albumin 3.9 (3.4-5.0) gm/dl Intake and Output 08/17/23 08/18/23 08/18/23 22:59 06:59 14:59 Intake Total 100 / 100 Output Total 1600 / 1600 Balance -1500 / -1500 Intake: IV 100 / 100 Magnesium Sulfate / D5w 1 gm In 100 / 100 100 ml @ 100 mls/hr IV NOW STA Rx#:[id number] Output: Urine Amount (Catheter) 1600 / 1600 Conrad/Indwelling 1599 / 1600 Other: Weight 72.1 kg Weight Measurement Method Chair Scale Patient Weight 08/19/23 06:59 Weight 72.1 kg Diagnostic Findings EKG performed 08/18/2023 8:42 AM, reveals atrial fibrillation without significant ST segment changes. Compared to previous, atrial fibrillation has replaced sinus rhythm. Chest x-ray: Radiology report reviewed and film reviewed independently: Moderate bilateral pleural effusions Echocardiogram performed in September,: LVEF greater than 70%, with moderate right ventricular hypertrophy, grade 1 diastolic dysfunction, normally functioning bioprosthetic aortic valve at that time (1) CHF exacerbation Heart failure type: diastolic Qualified Code(s): I50.33 - Acute on chronic diastolic (congestive) heart failure
[2023-08-18] MEDS: MAGNESIUM SULFATE / D5W 1 GM/100 ML BAG IV SCH (14:35)
[2023-08-18] MEDS: ASPIRIN 81 MG ECTAB PO SCH (14:38)
[2023-08-18] MEDS: ISOSORBIDE MONO EXTENDED REL 30 MG TABCR PO SCH (14:38)
[2023-08-18] MEDS: PANTOprazole 40 MG TAB PO SCH (14:38)
[2023-08-18] MEDS: METOPROLOL SUCC 50MG EXT REL TAB PO SCH (14:39)
[2023-08-18] MEDS: lisinopril 10 MG TAB PO SCH (14:39)
[2023-08-18] MEDS: METOPROLOL TARTRATE 25 MG TAB PO SCH (14:45)
[2023-08-18] MEDS: FUROSEMIDE 40 MG/4 ML VIAL IV SCH (17:56)
[2023-08-18 19:19] LABS: ANTI-Xa, UFH(UnfractionatedHep 0.68 IU/ml (0.3-0.7)
[2023-08-18] MEDS: DOCUSATE SODIUM 100 MG CAP PO SCH (19:44)
[2023-08-19 07:47] LABS: Hematocrit (blood only) 32.8 % (37.0-47.0); Hemoglobin 10.4 g/dl (12.0-16.0); Mean Corpuscular Hemoglobin 32.1 pg (25.0-34.0); Mean Corpuscular Hgb Conc 31.7 g/dL (32.0-36.0); Mean Corpuscular Volume 101.2 fL (80.0-100.0); Mean Platelet Volume 10.5 fL (9.4-12.4); Platelet Count 154 K/uL (130-400); RDW Coefficient of Variation 13.3 % (11.5-14.5); RDW Standard Deviation 49.6 fL (36.4-46.3); Red Blood Count 3.24 M/uL (4.20-5.40); White Blood Count 6.31 K/ul (4.8-10.8)
[2023-08-19 08:07] LABS: BUN Creatinine Ratio 22.3 (10-20); Calcium 9.6 mg/dl (8.6-10.3); Creatinine Clr Calc Pharmacy 42.5 ml/min; Est GFR (African American) 63.2 ml/min; Est GFR (Non-African American) 54.5 ml/min; Magnesium 1.9 mg/dl (1.7-2.4); Potassium 3.9 mmol/L (3.5-5.1)
[2023-08-19] MEDS: ATORVASTATIN 40 MG TAB PO SCH (08:08)
[2023-08-19] MEDS: SENNA 8.6 MG TAB PO SCH (08:09)
--- NOTE | 2023-08-19 10:08 | Electrocardiogram Report ---
Test Reason : Blood Pressure : / mmHG Vent. Rate : 093 BPM Atrial Rate : 107 BPM P-R Int : 000 ms QRS Dur : 088 ms QT Int : 372 ms P-R-T Axes : 000 051 073 degrees QTc Int : 462 ms Atrial fibrillation Cannot rule out Inferior infarct , age undetermined Abnormal ECG When compared with ECG of 18-AUG-2023 08:42, No significant change was found Confirmed by Lam Garcia ([id number]) on 08/19/2023 10:08:13 AM Referred By: REFERRED SELF Confirmed By:Lam Garcia
--- NOTE | 2023-08-19 10:52 | Cardiology Progress Note ---
Date of Service August 19, 2023 Assessment & Plan (1) CHF exacerbation: (2) Atrial fibrillation, new onset: Plan Acute on chronic heart failure with preserved ejection fraction -Hyperdynamic LV systolic function observed on echocardiogram performed 08/18/2023, LVEF > 70%. -Mild to moderate mitral regurgitation -Moderate tricuspid regurgitation -Pulm artery systolic pressure estimate to be 48 mmHg (mildly elevated -Bioprosthetic aortic valve with normal prosthetic gradients and no significant aortic regurgitation -Large bilateral pleural effusions noted on echocardiogram Atrial fibrillation, newly recognized. Underlying dementia * Mild troponin elevation, flat trend, consistent with underlying heart failure rather than acute coronary syndrome * 5 L of urine output noted in the last 24 hours. * Continue furosemide 40 mg IV twice daily, Conrad catheter in place. * Continue aspirin, unfractionated heparin for stroke prophylaxis, Imdur, metoprolol, lisinopril, atorvastatin. * DVT prophylaxis: She is on unfractionated heparin infusion. * Continue monitor electrolytes and kidney function. Admission and Anticipated Discharge Date Admission Date: August 18, 2023 Subjective Patient seen in cardiology follow up. Diarrhea noted earlier today. Patient unable to provide subjective history due to dementia. Conrad catheter remains in place draining clear yellow urine. Feels rate controlled atrial fibrillation in the 80s Review of Systems Review of Systems: Unobtainable due to cognitive status Physical Exam Constitutional: + thin; no acute distress Respiratory: no labored breathing and no cough Auscultation: + diminished lung sounds (decreased BS at the bases ); no crackles and no rales Cardiovascular: Rate/Rhythm: + tachycardic and + irregularly irregular Heart Sounds: + murmur (I/ SM) Extremities: + edema (2+ LE edema ) Gastrointestinal (Abdomen): normal bowel sounds, soft, nontender, no hepatosplenomegaly Neurologic: PERRL, EOMI, accommodation nl, no face palsy, no dysarthria Results & Data Vital Signs (Past 12 Hours) Vital Signs Temp Pulse Resp BP Pulse Ox O2 Del Method O2 Flow Rate 08/19/23 07:59 1 08/19/23 07:59 36.8 C 89 18 155/93 H 98 Nasal Cannula 1 08/19/23 04:00 36.5 C 85 18 134/81 98 Nasal Cannula 2 08/18/23 23:00 36.8 C 87 18 120/72 96 Room Air Laboratory Results Cardiac Enzymes 08/18/23 08/18/23 Range/Units 10:36 20:34 Troponin I High Sens 26.9 H 34.4 H (0-14) pg/ml Coagulation 08/18/23 Range/Units 08:45 APTT 26 (21-31) Seconds CBC 08/19/23 Range/Units 07:32 WBC 6.31 (4.8-10.8) K/ul RBC 3.24 L (4.20-5.40) M/uL Hgb 10.4 L (12.0-16.0) g/dl Hct 32.8 L (37.0-47.0) % Plt Count 154 (130-400) K/uL Comprehensive Metabolic Panel 08/19/23 Range/Units 07:32 Sodium 139 (136-145) mmol/L Potassium 3.9 (3.5-5.1) mmol/L Chloride 100 (98-107) mmol/L Carbon Dioxide 35 H (21-32) mmol/L BUN 21 (6-23) mg/dl Creatinine 0.94 (0.6-1.2) mg/dl Glucose 93 (70-99(Fasting)) mg/dl Calcium 9.6 (8.6-10.3) mg/dl Intake and Output 08/18/23 08/19/23 08/19/23 22:59 06:59 14:59 Intake Total 628.000 / 728.000 262.667 / 262.667 Output Total 2049 1500 / 5150 Balance -1422.000 / -4422.000 -1500 / -4422.000 262.667 / 262.667 Intake: IV 378.000 / 478.000 262.667 / 262.667 Heparin Sodium/Dextrose 25,000 178.000 / 178.000 262.667 / 262.667 units In 500 ml @ 1,000 UNITS/ HR 20 mls/hr IV .Q24H [facility] Rx#: [id number] Magnesium Sulfate / D5w 1 gm In 200 / 200 100 ml @ 50 mls/hr IV Q2H [facility] Rx#:[id number] Oral 250 / 250 Output: Urine Amount (Catheter) 2049 1500 / 5150 Conrad/Indwelling 2049 515 Other: Other Intake Source sips Weight 67 kg 67 kg Weight Measurement Method Built in [facility] Built in [facility] (1) CHF exacerbation Heart failure type: diastolic Qualified Code(s): I50.33 - Acute on chronic diastolic (congestive) heart failure
--- NOTE | 2023-08-19 13:40 | XRay Report ---
XR chest 1V portable CLINICAL HISTORY: monitor pleural effusions TECHNIQUE: Single frontal radiograph of the chest was obtained. Comparison: Comparison is made to chest radiograph 08/18/2023 FINDINGS: Median sternotomy wires are unchanged. Calcified aortic knob is seen. Moderate bilateral pleural effu sions again seen. Previous seen noted vascular prominence is decreased. IMPRESSION: Interval improvement in pulmonary edema. Moderate bilateral pleural effusions, the right effusion may be slightly improved. ACT 112: Negative or not required by law. Electronically signed by: Socrates Mcclelland M.D. 08/19/2023 1:38 PM
--- NOTE | 2023-08-19 14:39 | Hospitalist Progress Note ---
Date of Service August 19, 2023 Assessment & Plan (1) CHF exacerbation: Plan: Acute on chronic heart failure with preserved ejection fraction Valvular heart disease Bioprosthetic aortic valve Bilateral pleural effusion secondary to above --CXR:Cardiomegaly and mild pulmonary edema. Moderate bilateral pleural effusions are seen. --ECHO: A-fib RVR present during echo study. Left ventricle is hyperdynamic. EF greater than 70%. Right ventricle is normal in size and function. Mild to moderate mitral regurgitation. Moderate tricuspid regurgitation. Pulmonary artery systolic pressure is estimated to be 48 mmHg. Bioprosthetic arctic valve with normal prosthetic gradients and no significant prosthetic regurgitation. Large bilateral pleural effusions are present. --Mild troponin elevation: Demand ischemia secondary to volume overload, A-fib RVR --Saturating well on room air Repeat chest x-ray improved effusions Continue IV Lasix 40 mg daily Continue lisinopril, metoprolol, isosorbide Appreciate cardiology input Monitor I's and O's, daily weight, volume status (2) Atrial fibrillation, new onset: Plan: -- Normal TSH Rate controlled Continue metoprolol On heparin for anticoagulation Likely poor candidate for long-term anticoagulation given fall risk, dementia Cardiology on board Diarrhea Hold stool softeners Check KUB Check stool for C. difficile Monitor (3) Pleural effusion: Plan: Due to CHF Management as above (4) Hypoxia: Plan: Weaned off of supplemental oxygen Monitor (5) Hypomagnesemia: Plan: Replace and monitor (6) Elevated troponin I level: Plan: As above (7) CKD (chronic kidney disease), stage III: Plan: Renal function at baseline Monitor renal function Avoid nephrotoxic agents as able (8) S/P AVR: Plan: h/o bioprosthetic AoV replacement in 2007. (9) Anemia: Plan: Anemia of chronic disease Hemoglobin at baseline Monitor CBC DVT Px: IV Heparin CODE STATUS DNI/DNR Admission and Anticipated Discharge Date Admission Date: August 18, 2023 Subjective Patient is seen and examined at bedside Poor historian due to dementia Abdominal discomfort resolved after having large bowel movement today Patient denies any chest pain, dyspnea, dizziness, nausea, vomiting A-fib rate controlled Review of Systems Review of Systems: All systems reviewed & are unremarkable except as noted in Subjective Physical Exam Physical Exam: Physical Exam: Vitals signs as noted above General Appearance: Thin, frail, elderly, chronically appearing, no apparent distress Head: normocephalic, Atraumatic Eyes: normal inspection, EOMI Neck: supple, Trachea midline Respiratory/Chest: Decreased breath sounds, basilar crackles, No accessory muscle use Cardiovascular: Irregularly irregular, + murmur Abdomen/GI:Soft, Non tender, Bowel sounds present Extremities/Musculoskeletal:normal inspection, 1-2+ Edema Neurologic/Psych:AAOX2, grossly no focal neurological deficits Skin: normal color, warm Results & Data Results & Data Vital Signs (Past 12 Hours) Vital Signs Temp Pulse Pulse Resp BP Pulse Ox O2 Del Method 08/19/23 11:46 36.6 C 89 18 130/80 94 Room Air 08/19/23 07:59 08/19/23 07:59 36.8 C 89 18 155/93 H 98 Nasal Cannula 08/19/23 04:00 36.5 C 85 18 134/81 98 Nasal Cannula O2 Flow Rate 08/19/23 11:46 08/19/23 07:59 1 08/19/23 07:59 1 08/19/23 04:00 2 Laboratory Results Short CBC 08/19/23 Range/Units 07:32 WBC 6.31 (4.8-10.8) K/ul Hgb 10.4 L (12.0-16.0) g/dl Hct 32.8 L (37.0-47.0) % Plt Count 154 (130-400) K/uL BMP 08/19/23 07:32 Sodium 139 Potassium 3.9 Chloride 100 Carbon Dioxide 35 H BUN 21 Creatinine 0.94 Glucose 93 Calcium 9.6 (1) CHF exacerbation Heart failure type: diastolic Qualified Code(s): I50.33 - Acute on chronic diastolic (congestive) heart failure
[2023-08-19 17:13] LABS: ANTI-Xa, UFH(UnfractionatedHep 0.56 IU/ml (0.3-0.7)
[2023-08-20 07:20] LABS: BUN Creatinine Ratio 20.2 (10-20); Calcium 9.3 mg/dl (8.6-10.3); Creatinine Clr Calc Pharmacy 40.4 ml/min; Est GFR (African American) 59.4 ml/min; Est GFR (Non-African American) 51.2 ml/min; Magnesium 1.7 mg/dl (1.7-2.4); Potassium 3.9 mmol/L (3.5-5.1)
[2023-08-20 07:43] LABS: ANTI-Xa, UFH(UnfractionatedHep 0.37 IU/ml (0.3-0.7)
--- NOTE | 2023-08-20 09:55 | Electrocardiogram Report ---
Test Reason : Blood Pressure : / mmHG Vent. Rate : 085 BPM Atrial Rate : 326 BPM P-R Int : 000 ms QRS Dur : 098 ms QT Int : 376 ms P-R-T Axes : 000 054 083 degrees QTc Int : 447 ms Atrial fibrillation Poor R wave progression, consider anterior [place] vs. lead placement vs. LVH Abnormal ECG When compared with ECG of 19-AUG-2023 07:47, Minimal criteria for Anterior infarct are now Present Nonspecific T wave abnormality no longer evident in Lateral leads Confirmed by Lam Garcia ([id number]) on 08/20/2023 9:55:14 AM Referred By: REFERRED SELF Confirmed By:Lam Garcia
--- NOTE | 2023-08-20 10:22 | XRay Report ---
KUB HISTORY: Diarrhea COMPARISON: Abdomen and pelvis CT 08/04/2022.. FINDINGS: The bowel gas pattern is unremarkable. There are no dilated loops of small bowel to suggest an obstruction. No renal calculi. No ureteral calculi. Calcifications in the deep pelvis likely rep resent phleboliths. Cardiomegaly and bilateral pleural effusions are partially visualized. There are poststernotomy changes and an aortic valve prosthesis. Mild fecal retention is noted. Old, healed lef t pubic ring fractures. No pneumoperitoneum or pneumatosis. There is a surgical clip within the right side of the abdomen. Postoperative changes within the right hip. IMPRESSION: 1. Nonobstructive bowel gas pattern. 2. Mild fecal retention. 3. Cardiomegaly and bilateral pleural fusions are partially visualized. ACT 112: Negative or not required by law. Electronically signed by: Ludwig Braga M.D. 08/20/2023 10:20 AM
--- NOTE | 2023-08-20 14:30 | Cardiology Progress Note ---
Date of Service August 20, 2023 Assessment & Plan (1) CHF exacerbation: (2) Atrial fibrillation, new onset: Plan Acute on chronic heart failure with preserved ejection fraction -Hyperdynamic LV systolic function observed on echocardiogram performed 08/18/2023, LVEF > 70%. -Mild to moderate mitral regurgitation -Moderate tricuspid regurgitation -Pulm artery systolic pressure estimate to be 48 mmHg (mildly elevated -Bioprosthetic aortic valve with normal prosthetic gradients and no significant aortic regurgitation -Large bilateral pleural effusions noted on echocardiogram Atrial fibrillation, newly recognized. Underlying dementia * Mild troponin elevation, flat trend, consistent with underlying heart failure rather than acute coronary syndrome * Continue furosemide 40 mg IV twice daily, Conrad catheter in place. * Continue aspirin, unfractionated heparin for stroke prophylaxis, Imdur, metoprolol, lisinopril, atorvastatin. * DVT prophylaxis: She is on unfractionated heparin infusion. * Continue monitor electrolytes and kidney function. * Patient ambulates with [facility] walk[facility]. As hospital stay continues, recommend physical therapy to determine she does with walking. Will also need to determine potential [id number] cost of Eliquis 5 mg twice daily. Admission and Anticipated Discharge Date Admission Date: August 18, 2023 Subjective Ms Dumas is seen in cardiology follow up of CHF and atrial fibrillation. She is a resident of [facility]. Her sister, Kelly Walker, accompanies her at the bedside today. Telemetry reveals rate controlled atrial fibrillation with ventricular rates in the 80s to 90s. A Conrad catheter remains in place with mild hematuria noted. Physical Exam Constitutional: + thin; no acute distress Respiratory: no labored breathing and no cough Auscultation: + diminished lung sounds (decreased BS at the bases ); no crackles and no rales Cardiovascular: Rate/Rhythm: + tachycardic and + irregularly irregular Heart Sounds: + murmur (I/ SM) Extremities: + edema (2+ LE edema ) Gastrointestinal (Abdomen): normal bowel sounds, soft, nontender, no hepatosplenomegaly Neurologic: PERRL, EOMI, accommodation nl, no face palsy, no dysarthria Results & Data Vital Signs (Past 12 Hours) Vital Signs Temp Pulse Pulse Resp BP Pulse Ox O2 Del Method 08/20/23 12:00 36.3 C L 92 H 16 105/58 L 97 Nasal Cannula 08/20/23 08:14 99 H 08/20/23 07:36 08/20/23 07:19 36.8 C 85 14 145/79 H 97 Nasal Cannula 08/20/23 03:50 36.5 C 89 20 137/79 93 Nasal Cannula O2 Flow Rate 08/20/23 12:00 1 08/20/23 08:14 08/20/23 07:36 1 08/20/23 07:19 2 08/20/23 03:50 1 Laboratory Results Comprehensive Metabolic Panel 08/20/23 Range/Units 06:46 Sodium 138 (136-145) mmol/L Potassium 3.9 (3.5-5.1) mmol/L Chloride 98 (98-107) mmol/L Carbon Dioxide 37 H (21-32) mmol/L BUN 20 (6-23) mg/dl Creatinine 0.99 (0.6-1.2) mg/dl Glucose 93 (70-99(Fasting)) mg/dl Calcium 9.3 (8.6-10.3) mg/dl Intake and Output 08/19/23 08/20/23 08/20/23 22:59 06:59 14:59 Intake Total 525 / 1009.667 222 / 1009.667 119.7 / 119.7 Output Total 900 / 2350 250 / 2350 Balance -375 / -1340.333 -28 / -1340.333 119.7 / 119.7 Intake: IV 150 / 634.667 222 / 634.667 119.7 / 119.7 Heparin Sodium/Dextrose 25,000 150 / 634.667 222 / 634.667 119.7 / 119.7 units In 500 ml @ 800 UNITS/HR 16 mls/hr IV .Q24H [facility] Rx#: [id number] Oral 375 / 375 0 / 375 Output: Urine Amount (Catheter) 900 / 2350 250 / 2350 Conrad/Indwelling 900 / 2350 250 / 2350 Other: Other Intake Source Sips Weight 66.4 kg Weight Measurement Method Built in [facility] (1) CHF exacerbation Heart failure type: diastolic Qualified Code(s): I50.33 - Acute on chronic diastolic (congestive) heart failure
--- NOTE | 2023-08-20 14:59 | Hospitalist Progress Note ---
Date of Service August 20, 2023 Assessment & Plan (1) CHF exacerbation: Plan: Acute on chronic heart failure with preserved ejection fraction Valvular heart disease Bioprosthetic aortic valve Bilateral pleural effusion secondary to above --CXR:Cardiomegaly and mild pulmonary edema. Moderate bilateral pleural effusions are seen. --ECHO: A-fib RVR present during echo study. Left ventricle is hyperdynamic. EF greater than 70%. Right ventricle is normal in size and function. Mild to moderate mitral regurgitation. Moderate tricuspid regurgitation. Pulmonary artery systolic pressure is estimated to be 48 mmHg. Bioprosthetic arctic valve with normal prosthetic gradients and no significant prosthetic regurgitation. Large bilateral pleural effusions are present. --Mild troponin elevation: Demand ischemia secondary to volume overload, A-fib RVR --Saturating well on room air Repeat chest x-ray improved effusions Continue IV Lasix 40 mg daily Continue lisinopril, metoprolol, isosorbide Appreciate cardiology input Monitor I's and O's, daily weight, volume status Continue diuresis per cardiology (2) Atrial fibrillation, new onset: Plan: -- Normal TSH Rate controlled Continue metoprolol On heparin for anticoagulation Appreciate cardiology input Likely transition to Eliquis as able Diarrhea Likely overflow diarrhea secondary to fecal retention --KUB:Nonobstructive bowel gas pattern. Mild fecal retention. Continue Stool softeners Monitor (3) Pleural effusion: Plan: Due to CHF Management as above (4) Hypoxia: Plan: Weaned off of supplemental oxygen Monitor (5) Hypomagnesemia: Plan: Replace and monitor (6) Elevated troponin I level: Plan: As above (7) CKD (chronic kidney disease), stage III: Plan: Renal function at baseline Monitor renal function Avoid nephrotoxic agents as able (8) S/P AVR: Plan: h/o bioprosthetic AoV replacement in 2007. (9) Anemia: Plan: Anemia of chronic disease Hemoglobin at baseline Monitor CBC DVT Px: IV Heparin CODE STATUS DNI/DNR Admission and Anticipated Discharge Date Admission Date: August 18, 2023 Subjective Patient is seen and examined at bedside Poor historian due to dementia Admits to have some dyspnea on exertion No distress on exam No diarrhea today KUB suggestive of mild fecal retention Patient denies any chest pain, dizziness, nausea, vomiting, abd pain Review of Systems Review of Systems: All systems reviewed & are unremarkable except as noted in Subjective Physical Exam Physical Exam: Physical Exam: Vitals signs as noted above General Appearance: Thin, frail, elderly, chronically appearing, no apparent distress Head: normocephalic, Atraumatic Eyes: normal inspection, EOMI Neck: supple, Trachea midline Respiratory/Chest: Decreased breath sounds, basilar crackles, No accessory muscle use Cardiovascular: Irregularly irregular, + murmur Abdomen/GI:Soft, Non tender, Bowel sounds present Extremities/Musculoskeletal:normal inspection, 1-2+ Edema Neurologic/Psych:AAOX2, grossly no focal neurological deficits Skin: normal color, warm Results & Data Results & Data Vital Signs (Past 12 Hours) Vital Signs Temp Pulse Pulse Resp BP Pulse Ox O2 Del Method 08/20/23 12:00 36.3 C L 92 H 16 105/58 L 97 Nasal Cannula 08/20/23 08:14 99 H 08/20/23 07:36 08/20/23 07:19 36.8 C 85 14 145/79 H 97 Nasal Cannula 08/20/23 03:50 36.5 C 89 20 137/79 93 Nasal Cannula O2 Flow Rate 08/20/23 12:00 1 08/20/23 08:14 08/20/23 07:36 1 08/20/23 07:19 2 08/20/23 03:50 1 Laboratory Results [facility] 08/20/23 06:46 Sodium 138 Potassium 3.9 Chloride 98 Carbon Dioxide 37 H BUN 20 Creatinine 0.99 Glucose 93 Calcium 9.3 (1) CHF exacerbation Heart failure type: diastolic Qualified Code(s): I50.33 - Acute on chronic diastolic (congestive) heart failure
--- NOTE | 2023-08-21 02:04 | Communication Note ---
Date of Service: August 21, 2023 Patient noted to have painful right elbow hematoma as per RN. CBC now Hold aspirin IV heparin
[2023-08-21] MEDS: ACETAMINOPHEN 325 MG TAB PO STA (02:36)
[2023-08-21 02:47] LABS: Calcium 8.9 mg/dl (8.6-10.3); Creatinine Clr Calc Pharmacy 34.8 ml/min; Est GFR (African American) 49.5 ml/min; Est GFR (Non-African American) 42.7 ml/min; Magnesium 1.6 mg/dl (1.7-2.4); Potassium 3.8 mmol/L (3.5-5.1)
[2023-08-21 02:51] LABS: Basophils # (auto) 0.05 K/uL (0.00-0.20); Basophils % (auto) 0.6 %; Eosinophils % (auto) 5.1 %; Hematocrit (blood only) 33.8 % (37.0-47.0); Hemoglobin 10.7 g/dl (12.0-16.0); Immature Granulocytes # (auto) 0.02 K/uL (0.01-0.20); Immature Granulocytes % (auto) 0.3 %; Lymphocytes # (auto) 0.68 K/uL (1.20-3.40); Lymphocytes % (auto) 8.7 %; Mean Corpuscular Hemoglobin 31.8 pg (25.0-34.0); Mean Corpuscular Hgb Conc 31.7 g/dL (32.0-36.0); Mean Corpuscular Volume 100.3 fL (80.0-100.0); Mean Platelet Volume 10.7 fL (9.4-12.4); Neutrophils # (auto) 5.95 K/uL (1.40-6.50); Neutrophils % (auto) 76.3 %; Platelet Count 156 K/uL (130-400); RDW Coefficient of Variation 13.2 % (11.5-14.5); RDW Standard Deviation 49.1 fL (36.4-46.3); Red Blood Count 3.37 M/uL (4.20-5.40)
[2023-08-21 02:54] LABS: ANTI-Xa, UFH(UnfractionatedHep 0.31 IU/ml (0.3-0.7)
[2023-08-21] MEDS: MAGNESIUM SULFATE / D5W 1 GM/100 ML BAG IV ONE (03:17)
[2023-08-21 07:07] LABS: Hematocrit (blood only) 31.2 % (37.0-47.0); Hemoglobin 10.3 g/dl (12.0-16.0)
[2023-08-21] MEDS: MAGNESIUM CHLORIDE W/CALCIUM 64MG DELAYED REL TAB PO SCH (10:09)
--- NOTE | 2023-08-21 11:40 | Cardiology Progress Note ---
Date of Service August 21, 2023 Assessment & Plan (1) CHF exacerbation: (2) Atrial fibrillation, new onset: Plan Acute on chronic heart failure with preserved ejection fraction -Hyperdynamic LV systolic function observed on echocardiogram performed 08/18/2023, LVEF > 70%. -Mild to moderate mitral regurgitation -Moderate tricuspid regurgitation -Pulm artery systolic pressure estimate to be 48 mmHg (mildly elevated -Bioprosthetic aortic valve with normal prosthetic gradients and no significant aortic regurgitation -Large bilateral pleural effusions noted on echocardiogram Atrial fibrillation, newly recognized. Underlying dementia Right elbow hematoma * Hold heparin and aspirin * Mild troponin elevation, flat trend, consistent with underlying heart failure rather than acute coronary syndrome * Continue furosemide 40 mg IV twice daily, Conrad catheter in place. * Imdur, metoprolol, lisinopril, atorvastatin. * DVT prophylaxis: heparin on hold * Continue monitor electrolytes and kidney function. * Patient amb[facility] As ho spital stay continues, recommend physical therapy to determine she does with walking. Will also need to determine potential [id number] cost of Eliquis 5 mg twice daily. Andrew Guerin, DO Admission and Anticipated Discharge Date Admission Date: August 18, 2023 Shanna Dumas is seen in cardiology follow up of AF and CHF. Did well with short walk with PT, but was very SOB. Conrad in placed, with mild gross hematuria. Hematoma of right elbow for which heparin and aspirin held. Physical Exam Constitutional: + thin; no acute distress Respiratory: no labored breathing and no cough Auscultation: + diminished lung sounds (decreased BS at the bases ); no crackles and no rales Cardiovascular: Rate/Rhythm: + tachycardic and + irregularly irregular Heart Sounds: + murmur (I/ SM) Extremities: + edema (1+ LE edema ) Gastrointestinal (Abdomen): normal bowel sounds, soft, nontender, no hepatosplenomegaly Neurologic: PERRL, EOMI, accommodation nl, no face palsy, no dysarthria Results & Data Vital Signs (Past 12 Hours) Vital Signs Temp Pulse Pulse Resp BP Pulse Ox O2 Del Method 08/21/23 07:45 36.8 C 86 18 138/79 97 Nasal Cannula 08/21/23 07:30 92 H 08/21/23 07:30 Nasal Cannula 08/21/23 03:41 37.1 C 93 H 18 123/81 93 Room Air O2 Flow Rate 08/21/23 07:45 1 08/21/23 07:30 08/21/23 07:30 1 08/21/23 03:41 Laboratory Results CBC 08/21/23 08/21/23 Range/Units 02:10 06:30 WBC 7.80 (4.8-10.8) K/ul RBC 3.37 L (4.20-5.40) M/uL Hgb 10.7 L 10.3 L (12.0-16.0) g/dl Hct 33.8 L 31.2 L (37.0-47.0) % Plt Count 156 (130-400) K/uL Neut # (Auto) 5.95 (1.40-6.50) K/uL Lymph # (Auto) 0.68 L (1.20-3.40) K/uL [place] # (Auto) 0.70 H (0.11-0.59) K/uL Eos # (Auto) 0.40 (0.00-0.50) K/uL Baso # (Auto) 0.05 (0.00-0.20) K/uL Comprehensive Metabolic Panel 08/21/23 Range/Units 02:10 Sodium 135 L (136-145) mmol/L Potassium 3.8 (3.5-5.1) mmol/L Chloride 96 L (98-107) mmol/L Carbon Dioxide 33 H (21-32) mmol/L BUN 23 (6-23) mg/dl Creatinine 1.15 (0.6-1.2) mg/dl Glucose 104 H (70-99(Fasting)) mg/dl Calcium 8.9 (8.6-10.3) mg/dl Intake and Output 08/20/23 08/21/23 08/21/23 22:59 06:59 14:59 Intake Total 502.6 / 1082.3 100 / 1082.3 Output Total 400 / 1400 300 / 1400 Balance 102.6 / -317.7 -200 / -317.7 Intake: IV 102.6 / 322.3 100 / 322.3 Heparin Sodium/Dextrose 25,000 102.6 / 222.3 units In 500 ml @ 800 UNITS/HR 16 mls/hr IV .Q24H [facility] Rx#: [id number] Magnesium Sulfate / D5w 1 gm In 100 / 100 100 ml @ 50 mls/hr [facility] Rx#:[id number] Oral 400 / 760 Output: Urine Amount (Catheter) 400 / 1400 300 / 1400 Conrad/Indwelling 400 / 1400 300 / 1400 Other: Weight 66.4 kg Weight Measurement Method Built in [facility] (1) CHF exacerbation Heart failure type: diastolic Qualified Code(s): I50.33 - Acute on chronic d iastolic (congestive) heart failure
--- NOTE | 2023-08-21 16:14 | Hospitalist Progress Note ---
Date of Service August 21, 2023 Assessment & Plan (1) CHF exacerbation: Plan: Acute on chronic heart failure with preserved ejection fraction Valvular heart disease Bioprosthetic aortic valve Bilateral pleural effusion secondary to above --CXR:Cardiomegaly and mild pulmonary edema. Moderate bilateral pleural effusions are seen. --ECHO: A-fib RVR present during echo study. Left ventricle is hyperdynamic. EF greater than 70%. Right ventricle is normal in size and function. Mild to moderate mitral regurgitation. Moderate tricuspid regurgitation. Pulmonary artery systolic pressure is estimated to be 48 mmHg. Bioprosthetic arctic valve with normal prosthetic gradients and no significant prosthetic regurgitation. Large bilateral pleural effusions are present. --Mild troponin elevation: Demand ischemia secondary to volume overload, A-fib RVR --Saturating well on room air Repeat chest x-ray improved effusions Continue IV Lasix--adjust per Cardiology Continue lisinopril, metoprolol, isosorbide Appreciate cardiology input Monitor I's and O's, daily weight, volume status Continue diuresis per cardiology Continue PT OT IV Lasix held today due to low BP Right upper extremity hematoma Secondary to IV heparin infiltration Mild hematuria--likely traumatic catheter Aspirin, IV heparin held Monitor H&H (2) Atrial fibrillation, new onset: Plan: -- Normal TSH Rate controlled Continue metoprolol On heparin for anticoagulation--held due to hematoma Appreciate cardiology input Likely transition to Eliquis as able Diarrhea Likely overflow diarrhea secondary to fecal retention --KUB:Nonobstructive bowel gas pattern. Mild fecal retention. Continue Stool softeners Monitor (3) Pleural effusion: Plan: Due to CHF Management as above (4) Hypoxia: Plan: Weaned off of supplemental oxygen Monitor (5) Hypomagnesemia: Plan: Replace and monitor (6) Elevated troponin I level: Plan: As above (7) CKD (chronic kidney disease), stage III: Plan: Renal function at baseline Monitor renal function Avoid nephrotoxic agents as able (8) S/P AVR: Plan: h/o bioprosthetic AoV replacement in 2007. (9) Anemia: Plan: Anemia of chronic disease Hemoglobin at baseline Monitor CBC DVT Px: IV Heparin--held SCDs CODE STATUS DNI/DNR Admission and Anticipated Discharge Date Admission Date: August 18, 2023 Subjective Patient is seen and examined at bedside Reports dyspnea on minimal exertion Had PT evaluation earlier today Noted mild hematuria Had IV heparin infiltration overnight developed upper extremity hematoma Patient denies any chest pain, dizziness, nausea, vomiting, abd pain Discussed with patient's family at bedside Review of Systems Review of Systems: All systems reviewed & are unremarkable except as noted in Subjective Physical Exam Physical Exam: Physical Exam: Vitals signs as noted above General Appearance: Thin, frail, elderly, chronically appearing, no apparent distress Head: normocephalic, Atraumatic Eyes: normal inspection, EOMI Neck: supple, Trachea midline Respiratory/Chest: Decreased breath sounds, basilar crackles, No accessory muscle use Cardiovascular: Irregularly irregular, + murmur Abdomen/GI:Soft, Non tender, Bowel sounds present Extremities/Musculoskeletal:normal inspection, 1-2+ Edema Neurologic/Psych:AAOX2, grossly no focal neurological deficits Skin: normal color, warm Results & Data Results & Data Vital Signs (Past 12 Hours) Vital Signs Temp Pulse Pulse Resp BP Pulse Ox O2 Del Method 08/21/23 15:19 82 08/21/23 15:18 36.3 C L 84 14 100/66 95 Nasal Cannula 08/21/23 11:56 36.8 C 88 16 95/64 L 96 Nasal Cannula 08/21/23 07:45 36.8 C 86 18 138/79 97 Nasal Cannula 08/21/23 07:30 92 H 08/21/23 07:30 Nasal Cannula O2 Flow Rate 08/21/23 15:19 08/21/23 15:18 1 08/21/23 11:56 1 08/21/23 07:45 1 08/21/23 07:30 08/21/23 07:30 1 Laboratory Results Short CBC 08/21/23 08/21/23 Range/Units 02:10 06:30 WBC 7.80 (4.8-10.8) K/ul Hgb 10.7 L 10.3 L (12.0-16.0) g/dl Hct 33.8 L 31.2 L (37.0-47.0) % Plt Count 156 (130-400) K/uL BMP 08/21/23 02:10 Sodium 135 L Potassium 3.8 Chloride 96 L Carbon Dioxide 33 H BUN 23 Creatinine 1.15 Glucose 104 H Calcium 8.9 (1) CHF exacerbation Heart failure type: diastolic Qualified Code(s): I50.33 - Acute on chronic diastolic (congestive) heart failure
[2023-08-22 07:33] LABS: BUN Creatinine Ratio 20.5 (10-20); Calcium 8.8 mg/dl (8.6-10.3); Creatinine Clr Calc Pharmacy 31.5 ml/min; Est GFR (African American) 43.9 ml/min; Est GFR (Non-African American) 37.9 ml/min; Potassium 3.8 mmol/L (3.5-5.1)
[2023-08-22] MEDS ORDERED: bisacodyL 5 MG TABEC PO PRN (10:06)
[2023-08-22] MEDS: FUROSEMIDE 40 MG/4 ML VIAL IV ONE (11:31)
[2023-08-22] MEDS: POLYETHYLENE (MIRALAX) 17 GM PACK PO ONE (11:31)
--- NOTE | 2023-08-22 15:34 | Hospitalist Progress Note ---
Date of Service August 22, 2023 Assessment & Plan (1) CHF exacerbation: Plan: Acute on chronic heart failure with preserved ejection fraction Valvular heart disease Bioprosthetic aortic valve Bilateral pleural effusion secondary to above --CXR:Cardiomegaly and mild pulmonary edema. Moderate bilateral pleural effusions are seen. --ECHO: A-fib RVR present during echo study. Left ventricle is hyperdynamic. EF greater than 70%. Right ventricle is normal in size and function. Mild to moderate mitral regurgitation. Moderate tricuspid regurgitation. Pulmonary artery systolic pressure is estimated to be 48 mmHg. Bioprosthetic arctic valve with normal prosthetic gradients and no significant prosthetic regurgitation. Large bilateral pleural effusions are present. --Mild troponin elevation: Demand ischemia secondary to volume overload, A-fib RVR --Saturating well on room air Repeat chest x-ray improved effusions Continue IV Lasix--adjust per Cardiology Continue lisinopril, metoprolol, isosorbide Appreciate cardiology input Monitor I's and O's, daily weight, volume status Continue PT OT Continue IV diuresis May need to hold lisinopril if BP remains low to maximize IV diuresis Right upper extremity hematoma Secondary to IV heparin infiltration Mild hematuria--likely traumatic catheter Aspirin held IV heparin discontinued Monitor H&H Clinically improved (2) Atrial fibrillation, new onset: Plan: -- Normal TSH Rate controlled Continue metoprolol Initially started on IV heparin for anticoagulation: Discontinued due to infiltration, likely poor candidate for long-term anticoagulation due to dementia, fall risk, elderly Appreciate cardiology input Diarrhea Likely overflow diarrhea secondary to fecal retention --KUB:Nonobstructive bowel gas pattern. Mild fecal retention. Continue bowel regimen Monitor (3) Pleural effusion: Plan: Due to CHF Management as above (4) Hypoxia: Plan: Weaned off of supplemental oxygen Monitor (5) Hypomagnesemia: Plan: Replace and monitor (6) Elevated troponin I level: Plan: As above (7) CKD (chronic kidney disease), stage III: Plan: Renal function at baseline Monitor renal function Avoid nephrotoxic agents as able (8) S/P AVR: Plan: h/o bioprosthetic AoV replacement in 2007. (9) Anemia: Plan: Anemia of chronic disease Hemoglobin at baseline Monitor CBC DVT Px: Heparin SQ SCDs CODE STATUS DNI/DNR Admission and Anticipated Discharge Date Admission Date: August 18, 2023 Subjective Patient is seen and examined at bedside Reports constipation Continues to complain of dyspnea especially on exertion Discussed with patient's daughter at bedside Right upper extremity hematoma much improved Patient denies any chest pain, dizziness, nausea, vomiting, abd pain Discussed with cardiology today Review of Systems Review of Systems: All systems reviewed & are unremarkable except as noted in Subjective Physical Exam Physical Exam: Physical Exam: Vitals signs as noted above General Appearance: Thin, frail, elderly, chronically appearing, no apparent distress Head: normocephalic, Atraumatic Eyes: normal inspection, EOMI Neck: supple, Trachea midline Respiratory/Chest: Decreased breath sounds, basilar crackles, No accessory muscle use Cardiovascular: Irregularly irregular, + murmur Abdomen/GI:Soft, Non tender, Bowel sounds present Extremities/Musculoskeletal:normal inspection, 1-2+ Edema Neurologic/Psych:AAOX2, grossly no focal neurological deficits Skin: normal color, warm Results & Data Results & Data Vital Signs (Past 12 Hours) Vital Signs Temp Pulse Resp BP Pulse Ox O2 Del Method O2 Flow Rate 08/22/23 15:04 36.8 C 90 19 94/61 L 93 Room Air 08/22/23 11:10 36.6 C 78 19 96/62 L 96 Room Air 08/22/23 09:00 Nasal Cannula 2 08/22/23 07:33 36.5 C 89 19 133/68 95 Nasal Cannula 1 Laboratory Results [facility] 08/22/23 06:46 Sodium 135 L Potassium 3.8 Chloride 96 L Carbon Dioxide 34 H BUN 26 H Creatinine 1.27 H Glucose 91 Calcium 8.8 (1) CHF exacerbation Heart failure type: diastolic Qualified Code(s): I50.33 - Acute on chronic diastolic (congestive) heart failure
[2023-08-22] MEDS: FUROSEMIDE 40 MG/4 ML VIAL IV SCH (16:41)
--- NOTE | 2023-08-22 17:53 | Cardiology Progress Note ---
Date of Service August 22, 2023 Assessment & Plan (1) CHF exacerbation: (2) Atrial fibrillation, new onset: Plan Acute on chronic heart failure with preserved ejection fraction -Hyperdynamic LV systolic function observed on echocardiogram performed 08/18/2023, LVEF > 70%. -Mild to moderate mitral regurgitation -Moderate tricuspid regurgitation -Pulm artery systolic pressure estimate to be 48 mmHg (mildly elevated -Bioprosthetic aortic valve with normal prosthetic gradients and no significant aortic regurgitation -Large bilateral pleural effusions noted on echocardiogram Atrial fibrillation, newly recognized. Underlying dementia Right elbow hematoma * Hold heparin and aspirin given right upper extremity hematoma, and not certain she is a candidate for chronic anticoagulation given dementia and fall risks even though she is supervised at a personal custodial. * Patient received two doses of IV furosemide on 08/22/2023. * Most recent systolic blood pressure trending lower. * Hold diuretics for tomorrow, and repeat chest x-ray in the morning pending reassessment of dose. * Subcu heparin for DVT prophylaxis. Andrew Guerin DO Admission and Anticipated Discharge Date Admission Date: August 18, 2023 Subjective Patient seen in cardiology follow-up. No acute complaint. Still has a hematoma at the right elbow. Heparin has been held. Physical Exam Constitutional: + thin; no acute distress Respiratory: no labored breathing and no cough Auscultation: + diminished lung sounds (decreased BS at the bases ); no crackles and no rales Cardiovascular: Rate/Rhythm: + tachycardic and + irregularly irregular Heart Sounds: + murmur (I/ SM) Extremities: + edema (1+ LE edema ) Gastrointestinal (Abdomen): normal bowel sounds, soft, nontender, no hepatosplenomegaly Neurologic: PERRL, EOMI, accommodation nl, no face palsy, no dysarthria Results & Data Vital Signs (Past 12 Hours) Vital Signs Temp Pulse Resp BP Pulse Ox O2 Del Method O2 Del Method 08/22/23 15:04 36.8 C 90 19 94/61 L 93 Room Air 08/22/23 12:00 Room Air 08/22/23 11:10 36.6 C 78 19 96/62 L 96 Room Air 08/22/23 09:00 Nasal Cannula 08/22/23 07:33 36.5 C 89 19 133/68 95 Nasal Cannula O2 Flow Rate 08/22/23 15:04 08/22/23 12:00 08/22/23 11:10 08/22/23 09:00 2 08/22/23 07:33 1 Laboratory Results Comprehensive Metabolic Panel 08/22/23 Range/Units 06:46 Sodium 135 L (136-145) mmol/L Potassium 3.8 (3.5-5.1) mmol/L Chloride 96 L (98-107) mmol/L Carbon Dioxide 34 H (21-32) mmol/L BUN 26 H (6-23) mg/dl Creatinine 1.27 H (0.6-1.2) mg/dl Glucose 91 (70-99(Fasting)) mg/dl Calcium 8.8 (8.6-10.3) mg/dl Intake and Output 08/22/23 08/22/23 08/22/23 06:59 14:59 22:59 Intake Total 100 / 200 600 / 600 Output Total 250 / 950 200 / 200 Balance -150 / -750 400 / 400 Intake: Oral 100 / 200 600 / 600 Output: Urine Amount (Catheter) 250 / 950 200 / 200 Conrad/Indwelling 250 / 950 200 / 200 Other: Weight 67.3 kg (1) CHF exacerbation Heart failure type: diastolic Qualified Code(s): I50.33 - Acute on chronic diastolic (congestive) heart failure
[2023-08-22] MEDS: HEPARIN SOD 5,000 UNIT/0.5 ML VIAL SQ SCH (20:07)
[2023-08-22] MEDS: POTASSIUM CHLORIDE CRTAB 20 MEQ TABCR PO ONE (20:07)
[2023-08-22] MEDS: MAGNESIUM SULFATE / D5W 1 GM/100 ML BAG IV ONE (20:07)
[2023-08-23 07:01] LABS: Hematocrit (blood only) 34.3 % (37.0-47.0); Hemoglobin 11.1 g/dl (12.0-16.0); Mean Corpuscular Hemoglobin 32.4 pg (25.0-34.0); Mean Corpuscular Hgb Conc 32.4 g/dL (32.0-36.0); Mean Platelet Volume 10.9 fL (9.4-12.4); Platelet Count 163 K/uL (130-400); RDW Coefficient of Variation 13.3 % (11.5-14.5); RDW Standard Deviation 48.9 fL (36.4-46.3); Red Blood Count 3.43 M/uL (4.20-5.40)
--- NOTE | 2023-08-23 07:48 | XRay Report ---
XR chest 1V portable CLINICAL HISTORY: follow up CHF TECHNIQUE: Single frontal radiograph of the chest was obtained. Comparison: Comparison is made to chest radiograph 08/19/2023 FINDINGS: Median sternotomy wires are unchanged. Cardiomegaly is noted. The aortic arch is calcified. Pulmonary vascular congestion is less conspicuous on prior exam. Moderate bilateral pleural effusions. IMPRESSION: Interval improvement in pulmonary vascular congestion and bilateral pleural effusions which appear im proved from prior exam. ACT 112: Negative or not required by law. Electronically signed by: Socrates Mcclelland M.D. 08/23/2023 7:47 AM
[2023-08-23 07:50] LABS: BUN Creatinine Ratio 20.3 (10-20); Est GFR (African American) 39.7 ml/min; Est GFR (Non-African American) 34.3 ml/min; Magnesium 2.1 mg/dl (1.7-2.4); Potassium 4.6 mmol/L (3.5-5.1)
--- NOTE | 2023-08-23 16:08 | Hospitalist Progress Note ---
Date of Service August 23, 2023 Assessment & Plan (1) CHF exacerbation: Plan: Acute on chronic heart failure with preserved ejection fraction Valvular heart disease Bioprosthetic aortic valve Bilateral pleural effusion secondary to above --CXR:Cardiomegaly and mild pulmonary edema. Moderate bilateral pleural effusions are seen. --ECHO: A-fib RVR present during echo study. Left ventricle is hyperdynamic. EF greater than 70%. Right ventricle is normal in size and function. Mild to moderate mitral regurgitation. Moderate tricuspid regurgitation. Pulmonary artery systolic pressure is estimated to be 48 mmHg. Bioprosthetic arctic valve with normal prosthetic gradients and no significant prosthetic regurgitation. Large bilateral pleural effusions are present. --Mild troponin elevation: Demand ischemia secondary to volume overload, A-fib RVR --Saturating well on room air Repeat chest x-ray improved effusions Continue IV Lasix--adjust per Cardiology Continue lisinopril, metoprolol, isosorbide Appreciate cardiology input Monitor I's and O's, daily weight, volume status Continue PT OT May need to hold lisinopril if BP remains low to maximize IV diuresis Creatinine increased to 1.38 today expected with IV diuresis Received IV Lasix 40 mg this morning Will hold further IV diuresis and reassess renal function tomorrow Right upper extremity hematoma Secondary to IV heparin infiltration Mild hematuria--likely traumatic catheter Aspirin held IV heparin discontinued Monitor H&H Clinically improved (2) Atrial fibrillation, new onset: Plan: -- Normal TSH Rate controlled Continue metoprolol Initially started on IV heparin for anticoagulation: Discontinued due to infiltration, likely poor candidate for long-term anticoagulation due to dementi a, fall risk, elderly Appreciate cardiology input Diarrhea Likely overflow diarrhea secondary to fecal retention --KUB:Nonobstructive bowel gas pattern. Mild fecal retention. Continue bowel regimen Monitor (3) Pleural effusion: Plan: Due to CHF Management as above (4) Hypoxia: Plan: Weaned off of supplemental oxygen Monitor (5) Hypomagnesemia: Plan: Replace and monitor (6) Elevated troponin I level: Plan: As above (7) CKD (chronic kidney disease), stage III: Plan: PENNIE on CKD stage III Renal function at baseline Monitor renal function Avoid nephrotoxic agents as able Cr 1.3 today (8) S/P AVR: Plan: h/o bioprosthetic AoV replacement in 2007. (9) Anemia: Plan: Anemia of chronic disease Hemoglobin at baseline Monitor CBC DVT Px: Heparin SQ SCDs CODE STATUS DNI/DNR Admission and Anticipated Discharge Date Admission Date: August 18, 2023 Subjective Patient is seen and examined at bedside States feeling better today Had bowel movement today Less dyspnea today Discussed with patient's daughter at bedside Leg edema improving Right upper extremity hematoma continues to improve Patient denies any chest pain, dizziness, nausea, vomiting, abd pain Noted rising creatinine levels Review of Systems Review of Systems: All systems reviewed & are unremarkable except as noted in Subjective Physical Exam Physical Exam: Physical Exam: Vitals signs as noted above General Appearance: Thin, frail, elderly, chronically appearing, no apparent distress Head: normocephalic, Atraumatic Eyes: normal inspection, EOMI Neck: supple, Trachea midline Respiratory/Chest: Decreased breath sounds, basilar crackles, No accessory muscle use Cardiovascular: Irregularly irregular, + murmur Abdomen/GI:Soft, Non tender, Bowel sounds present Extremities/Musculoskeletal:normal inspection, 1-2+ Edema Neurologic/Psych:AAOX2, grossly no focal neurological deficits Skin: normal color, warm Results & Data Results & Data Vital Signs (Past 12 Hours) Vital Signs Temp Pulse Resp BP BP Pulse Ox O2 Del Method 08/23/23 16:00 37.0 C 78 19 113/68 95 Room Air 08/23/23 15:05 37.2 C 81 20 89/62 L 91 Room Air 08/23/23 12:00 08/23/23 11:21 36.8 C 75 16 91/56 L 93 Room Air 08/23/23 07:37 37.0 C 88 16 145/81 H 92 Room Air 08/23/23 07:00 Room Air O2 Del Method 08/23/23 16:00 08/23/23 15:05 08/23/23 12:00 Room Air 08/23/23 11:21 08/23/23 07:37 08/23/23 07:00 Laboratory Results Short CBC 08/23/23 Range/Units 06:42 WBC 7.50 (4.8-10.8) K/ul Hgb 11.1 L (12.0-16.0) g/dl Hct 34.3 L (37.0-47.0) % Plt Count 163 (130-400) K/uL BMP 08/23/23 06:42 Sodium 136 Potassium 4.6 D Chloride 98 Carbon Dioxide 32 BUN 28 H Creatinine 1.38 H Glucose 91 Calcium 9.0 (1) CHF exacerbation Heart failure type: diastolic Qualified Code(s): I50.33 - Acute on chronic diastolic (congestive) heart failure
--- NOTE | 2023-08-23 19:19 | Cardiology Progress Note ---
Date of Service August 23, 2023 Assessment & Plan (1) CHF exacerbation: (2) Atrial fibrillation, new onset: Plan Acute on chronic heart failure with preserved ejection fraction -Hyperdynamic LV systolic function observed on echocardiogram performed 08/18/2023, LVEF > 70%. -Mild to moderate mitral regurgitation -Moderate tricuspid regurgitation -Pulm artery systolic pressure estimate to be 48 mmHg (mildly elevated -Bioprosthetic aortic valve with normal prosthetic gradients and no significant aortic regurgitation -Large bilateral pleural effusions noted on echocardiogram Atrial fibrillation, newly recognized. Underlying dementia Right elbow hematoma -- Repeat chest x-ray performed 08/23/2023 reveals improvement in the pulmonary vascular congestion, pleural effusions have improved, but residual small bilateral pleural effusions noted per my personal review of the film. * Discontinued heparin given right upper extremity hematoma, and not certain she is a candidate for chronic anticoagulation given dementia and fall risks even though she is supervised at a personal [place] [facility]. * Continue ASA 81 mg. * Patient received two doses of IV furosemide on 08/22/2023. * Resume furosemide 40 mg IV twice daily, next dose due a.m. of 08/24/2023. * Subcu heparin for DVT prophylaxis. Andrew Guerin DO Admission and Anticipated Discharge Date Admission Date: August 18, 2023 Subjective Patient subjectively states she feels like her breathing is making subtle daily improvement. I will observed her walking with physical therapy. She is making progress, but does get dyspneic with exertion. Conrad catheter remains in place. Telemetry reveals atrial fibrillation in the 70s to 90s. Physical Exam Constitutional: + thin; no acute distress Respiratory: no labored breathing and no cough Auscultation: + diminished lung sounds (decreased BS at the bases ); no crackles and no rales Cardiovascular: Rate/Rhythm: + tachycardic and + irregularly irregular Heart Sounds: + murmur (I/ SM) Extremities: + edema (1+ LE edema ) Gastrointestinal (Abdomen): normal bowel sounds, soft, nontender, no hepatosplenomegaly Neurologic: PERRL, EOMI, accommodation nl, no face palsy, no dysarthria Results & Data Vital Signs (Past 12 Hours) Vital Signs Temp Pulse Pulse Resp BP BP Pulse Ox 08/23/23 16:00 77 08/23/23 16:00 37.0 C 78 19 113/68 95 08/23/23 15:05 37.2 C 81 20 89/62 L 91 08/23/23 12:00 08/23/23 11:21 36.8 C 75 16 91/56 L 93 08/23/23 07:37 37.0 C 88 16 145/81 H 92 O2 Del Method O2 Del Method 08/23/23 16:00 08/23/23 16:00 Room Air 08/23/23 15:05 Room Air 08/23/23 12:00 Room Air 08/23/23 11:21 Room Air 08/23/23 07:37 Room Air (1) CHF exacerbation Heart failure type: diastolic Qualified Code(s): I50.33 - Acute on chronic d iastolic (congestive) heart failure
[2023-08-24 06:49] LABS: Hematocrit (blood only) 34.5 % (37.0-47.0); Hemoglobin 10.8 g/dl (12.0-16.0); Mean Corpuscular Hemoglobin 31.6 pg (25.0-34.0); Mean Corpuscular Hgb Conc 31.3 g/dL (32.0-36.0); Mean Corpuscular Volume 100.9 fL (80.0-100.0); Mean Platelet Volume 10.9 fL (9.4-12.4); Platelet Count 159 K/uL (130-400); RDW Coefficient of Variation 13.2 % (11.5-14.5); RDW Standard Deviation 49.3 fL (36.4-46.3); Red Blood Count 3.42 M/uL (4.20-5.40); White Blood Count 6.93 K/ul (4.8-10.8)
[2023-08-24 07:20] LABS: BUN Creatinine Ratio 19.9 (10-20); Calcium 9.1 mg/dl (8.6-10.3); Creatinine Clr Calc Pharmacy 27.4 ml/min; Est GFR (African American) 37.1 ml/min; Magnesium 2.2 mg/dl (1.7-2.4); Potassium 4.8 mmol/L (3.5-5.1)
--- NOTE | 2023-08-24 14:01 | Hospitalist Progress Note ---
Date of Service August 24, 2023 Assessment & Plan (1) CHF exacerbation: Plan: Acute on chronic heart failure with preserved ejection fraction Valvular heart disease Bioprosthetic aortic valve Bilateral pleural effusion secondary to above --CXR:Cardiomegaly and mild pulmonary edema. Moderate bilateral pleural effusions are seen. --ECHO: A-fib RVR present during echo study. Left ventricle is hyperdynamic. EF greater than 70%. Right ventricle is normal in size and function. Mild to moderate mitral regurgitation. Moderate tricuspid regurgitation. Pulmonary artery systolic pressure is estimated to be 48 mmHg. Bioprosthetic arctic valve with normal prosthetic gradients and no significant prosthetic regurgitation. Large bilateral pleural effusions are present. --Mild troponin elevation: Demand ischemia secondary to volume overload, A-fib RVR --Saturating well on room air Repeat chest x-ray improved effusions Continued IV Lasix--adjust per Cardiology -> plan to switch to po lasix Continue lisinopril, metoprolol, isosorbide Appreciate cardiology input Monitor I's and O's, daily weight, volume status Continue PT OT May need to hold lisinopril if BP remains low to maximize IV diuresis Creatinine increased, expected with IV diuresis Will hold further IV diuresis and reassess renal function tomorrow Right upper extremity hematoma Secondary to IV heparin infiltration Mild hematuria--likely traumatic catheter Aspirin held IV heparin discontinued Monitor H&H Clinically improved (2) Atrial fibrillation, new onset: Plan: -- Normal TSH Rate controlled Continue metoprolol Initially started on IV heparin for anticoagulation: Discontinued due to infiltration, likely poor candidate for long-term anticoagulation due to [place], fall risk, elderly Appreciate cardiology input Diarrhea Likely overflow diarrhea secondary to fecal retention --KUB:Nonobstructive bowel gas pattern. Mild fecal retention. Continue bowel regimen Monitor (3) Pleural effusion: Plan: Due to CHF Management as above (4) Hypoxia: Plan: Weaned off of supplemental oxygen Monitor (5) Hypomagnesemia: Plan: Replace and monitor (6) Elevated troponin I level: Plan: As above (7) CKD (chronic kidney disease), stage III: Plan: PENNIE on CKD stage III Renal function at baseline Monitor renal function Avoid nephrotoxic agents as able Cr 1.4 -1.5 (8) S/P AVR: Plan: h/o bioprosthetic AoV replacement in 2007. (9) Anemia: Plan: Anemia of chronic disease Hemoglobin at baseline Monitor CBC DVT Px: Heparin SQ SCDs CODE STATUS DNI/DNR Admission and Anticipated Discharge Date Admission Date: August 18, 2023 Subjective Patient seen in follow up of CHF, afib Cardiology following Sitting up in chair in NAD, on RA States feeling better Leg edema improving Right upper extremity hematoma continues to improve Patient denies any chest pain, dizziness, nausea, vomiting, abd pain at rest, reports some shortness of breath with exertion Noted rising creatinine levels Discussed w/ cardiology plan to switch to po lasix Review of Systems Review of Systems: All systems reviewed & are unremarkable except as noted in Subjective Physical Exam Physical Exam: General Appearance: Thin, frail, elderly F, chronically appearing, in NAD Head: normocephalic, Atraumatic Eyes: normal inspection, EOMI Neck: supple Respiratory/Chest: Decreased breath sounds, basilar crackles, No accessory muscle use Cardiovascular: Irregularly irregular, + murmur Abdomen/GI:Soft, Non tender, Bowel sounds present Extremities/Musculoskeletal:normal inspection, 1-2+ Edema Neurologic/Psych:AAOX2, grossly no focal neurological deficits Skin: normal color, warm Results & Data Results & Data Vital Signs (Past 12 Hours) Vital Signs Temp Pulse Resp BP BP Pulse Ox O2 Del Method 08/24/23 12:00 08/24/23 11:46 37.2 C 92 H 18 96/49 L 94 Room Air 08/24/23 08:00 37.1 C 87 18 130/78 93 Room Air 08/24/23 02:43 36.7 C 79 18 121/87 95 Room Air O2 Del Method 08/24/23 12:00 Room Air 08/24/23 11:46 08/24/23 08:00 08/24/23 02:43 Laboratory Results 08/24/23 Range/Units 06:08 WBC 6.93 (4.8-10.8) K/ul RBC 3.42 L (4.20-5.40) M/uL Hgb 10.8 L (12.0-16.0) g/dl Hct 34.5 L (37.0-47.0) % MCV 100.9 H (80.0-100.0) fL MCH 31.6 (25.0-34.0) pg MCHC 31.3 L (32.0-36.0) g/dL RDW Std Deviation 49.3 H (36.4-46.3) fL RDW Coeff of Jimmie 13.2 (11.5-14.5) % Plt Count 159 (130-400) K/uL MPV 10.9 (9.4-12.4) fL Sodium 135 L (136-145) mmol/L Potassium 4.8 (3.5-5.1) mmol/L Chloride 100 (98-107) mmol/L Carbon Dioxide 31 (21-32) mmol/L Anion Gap 4 (3-11) BUN 29 H (6-23) mg/dl Creatinine 1.46 H (0.6-1.2) mg/dl Est Cr Clr Drug Dosing 27.4 ml/min Est GFR ( Amer) 37.1 ml/min Est GFR (Non-Af Amer) 32.0 ml/min BUN/Creatinine Ratio 19.9 (10-20) Glucose 89 (70-99(Fasting)) mg/dl Calcium 9.1 (8.6-10.3) mg/dl Magnesium 2.2 (1.7-2.4) mg/dl Medications Administered Current Inpatient Medications Acetaminophen (Acetaminophen 325 Mg Tab) 650 mg PO Q4H PRN PRN Reason: Pain or Fever Stop: 09/17/23 11:59 Artificial Tears (Artificial Tears) 1 drops OP QID PRN PRN Reason: Dryness Stop: 09/17/23 12:07 Aspirin (Aspirin 81 Mg Ectab) [address] [facility] Stop: 09/17/23 12:04 Last Admin: 08/24/23 08:13 Dose: 81 mg Atorvastatin Calcium (Atorvastatin 40 Mg Tab) [address] [facility] Stop: 09/18/23 08:59 Last Admin: 08/24/23 08:14 Dose: 40 mg Bisacodyl (Bisacodyl 5 Mg Tabec) 5 mg PO DAILY PRN PRN Reason: Constipation Stop: 09/21/23 10:05 Docusate Sodium (Docusate Sodium 100 Mg Cap) [address] [facility] Stop: 09/17/23 20:59 Last Admin: 08/24/23 08:23 Dose: 100 mg Furosemide (Furosemide 40 Mg/4 Ml Vial) [address] [facility] Stop: 09/21/23 16:59 Last Admin: 08/24/23 08:15 Dose: 40 mg Heparin Sodium (Porcine) (Heparin Sod 5,000 Unit/0.5 Ml Vial) 5,[address] [facility] Stop: 09/21/23 20:59 Last Admin: 08/24/23 08:15 Dose: 5,000 units Isosorbide Mononitrate (Isosorbide [place] Extended Rel 30 Mg Tabcr) [address] [facility] Stop: 09/17/23 12:14 Last Admin: 08/24/23 08:14 Dose: 30 mg Lisinopril (Lisinopril 10 Mg Tab) [address] [facility] Stop: 09/17/23 12:14 Last Admin: 08/24/23 08:14 Dose: 30 mg Magnesium Chloride (Magnesium Chloride W/Calcium 64mg Delayed Rel Tab) [address] [facility] Stop: 09/20/23 09:44 Last Admin: 08/24/23 08:13 Dose: 64 mg Metoprolol Succinate (Metoprolol Succ 50mg Ext Rel Tab) [address] [facility] Stop: 09/17/23 12:14 Last Admin: 08/24/23 08:13 Dose: 50 mg Pantoprazole Sodium (Pantoprazole 40 Mg Tab) [address] [facility] Stop: 09/17/23 12:14 Last Admin: 08/24/23 08:14 Dose: 40 mg Polyethylene Glycol (Polyethylene (Miralax) 17 Gm Pack) 17 gm PO DAILY PRN PRN Reason: Constipation Stop: 09/17/23 11:59 Sennosides (Senna 8.6 Mg Tab) 8.[address] [facility] Stop: 09/18/23 08:59 Last Admin: 08/24/23 08:14 Dose: 8.6 mg Trolamine Salicylate (Trolamine Salicylate 10% Crm 255 Appln/85 Gm Tube) 1 appln EXT QID PRN PRN Reason: Pain Stop: 09/17/23 12:00 (1) CHF exacerbation Heart failure type: diastolic Qualified Code(s): I50.33 - Acute on chronic diastolic (congestive) heart failure
--- NOTE | 2023-08-24 16:22 | Cardiology Progress Note ---
Date of Service August 24, 2023 Assessment & Plan (1) CHF exacerbation: (2) Atrial fibrillation, new onset: Plan 1.Acute on chronic heart failure with preserved ejection fraction 2. Bioprosthetic surgical aortic valve replacement performed 2007 3. 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 Dementia 5. Atrial fibrillation, newly recognized. 6. Right elbow hematoma Echocardiogram this admission: -Hyperdynamic LV systolic function observed on echocardiogram performed 08/18/2023, LVEF > 70%. -Mild to moderate mitral regurgitation -Moderate tricuspid regurgitation -Pulm artery systolic pressure estimate to be 48 mmHg (mildly elevated -Bioprosthetic aortic valve with normal prosthetic gradients and no significant aortic regurgitation -Large bilateral pleural effusions noted on echocardiogram -- Repeat chest x-ray performed 08/23/2023 reveals improvement in the pulmonary vascular congestion, pleural effusions have improved, but residual small bilateral pleural effusions noted per my personal review of the film. * Discontinued heparin given right upper extremity hematoma, and not certain she is a candidate for chronic anticoagulation given dementia and fall risks even though she is supervised at a personal shelter. * Continue ASA 81 mg. * Blood pressure in the 90s today. * Discontinue IV furosemide * Remove Conrad catheter * Blood pressure and renal indices stable on 08/25/2023 consider transitioning to furosemide 40 mg by mouth daily as compared to prior to hospital dose of 20 mg every Sunday and Sunday * Subcu heparin for DVT prophylaxis. Andrew Guerin DO Admission and Anticipated Discharge Date Admission Date: August 18, 2023 Subjective Patient seen in cardiology follow-up. Notes ongoing shortness of breath with exertion, but improved. Sitting in bedside chair. Physical Exam Constitutional: + thin; no acute distress Respiratory: no labored breathing and no cough Auscultation: + diminished lung sounds (decreased BS at the bases ); no crackles and no rales Cardiovascular: Rate/Rhythm: + tachycardic and + irregularly irregular Heart Sounds: + murmur (I/ SM) Extremities: + edema (1+ LE edema ) Gastrointestinal (Abdomen): normal bowel sounds, soft, nontender, no hepatosplenomegaly Neurologic: PERRL, EOMI, accommodation nl, no face palsy, no dysarthria (Follows commands, cognitive impairment) Results & Data Vital Signs (Past 12 Hours) Vital Signs Temp Pulse Resp BP Pulse Ox O2 Del Method O2 Del Method 08/24/23 16:03 92 Room Air 08/24/23 15:40 18 97/58 L 88 L Room Air 08/24/23 12:00 Room Air 08/24/23 11:46 37.2 C 92 H 18 96/49 L 94 Room Air 08/24/23 08:00 37.1 C 87 18 130/78 93 Room Air (1) CHF exacerbation Heart failure type: diastolic Qualified Code(s): I50.33 - Acute on chronic diastolic (congestive) heart failure
[2023-08-25 07:14] LABS: Hematocrit (blood only) 34.2 % (37.0-47.0); Hemoglobin 11.1 g/dl (12.0-16.0); Mean Corpuscular Hemoglobin 32.6 pg (25.0-34.0); Mean Corpuscular Hgb Conc 32.5 g/dL (32.0-36.0); Mean Corpuscular Volume 100.6 fL (80.0-100.0); Platelet Count 169 K/uL (130-400); RDW Coefficient of Variation 13.2 % (11.5-14.5); RDW Standard Deviation 48.6 fL (36.4-46.3); White Blood Count 9.08 K/ul (4.8-10.8)
[2023-08-25 07:29] LABS: BUN Creatinine Ratio 21.1 (10-20); Creatinine Clr Calc Pharmacy 26.3 ml/min; Est GFR (African American) 35.4 ml/min; Est GFR (Non-African American) 30.5 ml/min; Potassium 4.6 mmol/L (3.5-5.1)
[2023-08-26] MEDS: lisinopril 20 MG TAB PO SCH (08:28)
[2023-08-26 08:34] LABS: BUN Creatinine Ratio 22.4 (10-20); Calcium 9.3 mg/dl (8.6-10.3); Creatinine Clr Calc Pharmacy 26.1 ml/min; Est GFR (African American) 36.8 ml/min; Est GFR (Non-African American) 31.8 ml/min; Magnesium 2.1 mg/dl (1.7-2.4); Phosphorus 3.3 mg/dl (2.5-4.9); Potassium 4.8 mmol/L (3.5-5.1)
--- NOTE | 2023-08-26 09:37 | Hospitalist Progress Note ---
Date of Service August 25, 2023 Assessment & Plan (1) CHF exacerbation: Plan: Acute on chronic heart failure with preserved ejection fraction Valvular heart disease Bioprosthetic aortic valve Bilateral pleural effusion secondary to above --CXR:Cardiomegaly and mild pulmonary edema. Moderate bilateral pleural effusions are seen. --ECHO: A-fib RVR present during echo study. Left ventricle is hyperdynamic. EF greater than 70%. Right ventricle is normal in size and function. Mild to moderate mitral regurgitation. Moderate tricuspid regurgitation. Pulmonary artery systolic pressure is estimated to be 48 mmHg. Bioprosthetic arctic valve with normal prosthetic gradients and no significant prosthetic regurgitation. Large bilateral pleural effusions are present. --Mild troponin elevation: Demand ischemia secondary to volume overload, A-fib RVR --Saturating well on room air Repeat chest x-ray improved effusions Continued IV Lasix--adjust per Cardiology -> plan to switch to po lasix, hold today as BP lower, and Cr cont. to be up Continue lisinopril, metoprolol, isosorbide Appreciate cardiology input Monitor I's and O's, daily weight, volume status Continue PT OT May need to hold lisinopril if BP remains low to maximize IV diuresis Creatinine increased, expected with IV diuresis Will hold further IV diuresis and reassess renal function tomorrow Right upper extremity hematoma Secondary to IV heparin infiltration Mild hematuria--likely traumatic catheter Aspirin held IV heparin discontinued Monitor H&H Clinically improved (2) Atrial fibrillation, new onset: Plan: -- Normal TSH Rate controlled Continue metoprolol Initially started on IV heparin for anticoagulation: Discontinued due to infiltration, likely poor candidate for long-term anticoagulation due to dementia, fall risk, elderly Appreciate cardiology input Diarrhea Likely overflow diarrhea secondary to fecal retention --KUB:Nonobstructive bowel gas pattern. Mild fecal retention. Continue bowel regimen Monitor (3) Pleural effusion: Plan: Due to CHF Management as above (4) Hypoxia: Plan: Weaned off of supplemental oxygen Monitor (5) Hypomagnesemia: Plan: Replace and monitor (6) Elevated troponin I level: Plan: As above (7) CKD (chronic kidney disease), stage III: Plan: PENNIE on CKD stage III Renal function at baseline Monitor renal function Avoid nephrotoxic agents as able Cr 1.4 -1.5 (8) S/P AVR: Plan: h/o bioprosthetic AoV replacement in 2007. (9) Anemia: Plan: Anemia of chronic disease Hemoglobin at baseline Monitor CBC DVT Px: Heparin SQ SCDs CODE STATUS DNI/DNR Admission and Anticipated Discharge Date Admission Date: August 18, 2023 Subjective Patient seen in follow up of CHF, afib Cardiology following Sitting up in chair in NAD, on RA States feeling better Leg edema improving Right upper extremity hematoma continues to improve Patient denies any chest pain, dizziness, nausea, vomiting, abd pain at rest, reports some shortness of breath with exertion Noted rising creatinine levels and BP lower - decrease aceinh, hold lasix today Review of Systems Review of Systems: All systems reviewed & are unremarkable except as noted in Subjective Physical Exam Physical Exam: General Appearance: Thin, frail, elderly F, chronically appearing, in NAD Head: normocephalic, Atraumatic Eyes: normal inspection, EOMI Neck: supple Respiratory/Chest: Decreased breath sounds, basilar crackles, No accessory muscle use Cardiovascular: Irregularly irregular, + murmur Abdomen/GI:Soft, Non tender, Bowel sounds present Extremities/Musculoskeletal:normal inspection, 1-2+ Edema Neurologic/Psych:AAOX2, grossly no focal neurological deficits Skin: normal color, warm Results & Data Results & Data Vital Signs (Past 12 Hours) Vital Signs Temp Pulse Pulse Resp BP BP Pulse Ox 08/25/23 23:00 78 08/25/23 22:36 37.1 C 71 18 149/73 H 93 O2 Del Method 08/25/23 23:00 08/25/23 22:36 Room Air (1) CHF exacerbation Heart failure type: diastolic Qualified Code(s): I50.33 - Acute on chronic diastolic (congestive) heart failure
--- NOTE | 2023-08-26 09:50 | Hospitalist Progress Note ---
Date of Service August 26, 2023 Assessment & Plan (1) CHF exacerbation: Plan: Acute on chronic heart failure with preserved ejection fraction Valvular heart disease Bioprosthetic aortic valve Bilateral pleural effusion secondary to above --CXR:Cardiomegaly and mild pulmonary edema. Moderate bilateral pleural effusions are seen. --ECHO: A-fib RVR present during echo study. Left ventricle is hyperdynamic. EF greater than 70%. Right ventricle is normal in size and function. Mild to moderate mitral regurgitation. Moderate tricuspid regurgitation. Pulmonary artery systolic pressure is estimated to be 48 mmHg. Bioprosthetic arctic valve with normal prosthetic gradients and no significant prosthetic regurgitation. Large bilateral pleural effusions are present. --Mild troponin elevation: Demand ischemia secondary to volume overload, A-fib RVR --Saturating well on room air Repeat chest x-ray improved effusions Continued IV Lasix--adjust per Cardiology Switch to PO lasix 40 mg daily Continue lisinopril (decreased dose as BP low), metoprolol, isosorbide Appreciate cardiology input Monitor I's and O's, daily weight, volume status Creatinine increased, expected with IV diuresis, but otherwise stable Right upper extremity hematoma Secondary to IV heparin infiltration Mild hematuria--likely traumatic catheter Aspirin held IV heparin discontinued Monitor H&H Clinically improved (2) Atrial fibrillation, new onset: Plan: -- Normal TSH Rate controlled Continue metoprolol Initially started on IV heparin for anticoagulation: Discontinued due to infiltration, likely poor candidate for long-term anticoagulation due to dementia, fall risk, elderly Appreciate cardiology input Diarrhea Likely overflow diarrhea secondary to fecal retention --KUB:Nonobstructive bowel gas pattern. Mild fecal retention. Continue bowel regimen Monitor (3) Pleural effusion: Plan: Due to CHF Management as above (4) Hypoxia: Plan: Weaned off of supplemental oxygen- however now using after walking in hallway Monitor (5) Hypomagnesemia: Plan: Replace and monitor (6) Elevated troponin I level: Plan: As above (7) CKD (chronic kidney disease), stage III: Plan: PENNIE on CKD stage III Renal function at baseline Monitor renal function Avoid nephrotoxic agents as able Cr 1.47 (8) S/P AVR: Plan: h/o bioprosthetic AoV replacement in 2007. (9) Anemia: Plan: Anemia of chronic disease Hemoglobin at baseline Monitor CBC DVT Px: Heparin SQ SCDs CODE STATUS DNI/DNR Admission and Anticipated Discharge Date Admission Date: August 18, 2023 Subjective Patient seen in follow up of CHF, afib Cardiology consulted Sitting up in chair in NAD, currently on suppl. O2, says she got short of breath after walking in hallway Leg edema improved Right upper extremity hematoma continues to improve Patient denies any chest pain, abd. pain, nausea, vomiting Noted rising creatinine levels and BP lower - decreased aceinh, hold lasix today Review of Systems Review of Systems: All systems reviewed & are unremarkable except as noted in Subjective Physical Exam Physical Exam: General Appearance: Thin, frail, elderly F, chronically appearing, in NAD Head: normocephalic, Atraumatic Eyes: normal inspection, EOMI Neck: supple Respiratory/Chest: Decreased breath sounds, basilar crackles, No accessory muscle use Cardiovascular: Irregularly irregular, + murmur Abdomen/GI:Soft, Non tender, Bowel sounds present Extremities/Musculoskeletal:normal inspection, 1-2+ Edema Neurologic/Psych:AAOX2, grossly no focal neurological deficits Skin: normal color, warm Results & Data Results & Data Vital Signs (Past 12 Hours) Vital Signs Temp Pulse Pulse Resp BP BP Pulse Ox 08/26/23 07:58 36.7 C 92 H 22 146/85 H 92 08/26/23 07:34 86 08/26/23 03:28 36.7 C 91 H 18 156/82 H 91 08/25/23 23:00 78 08/25/23 22:36 37.1 C 71 18 149/73 H 93 O2 Del Method 08/26/23 07:58 Room Air 08/26/23 07:34 08/26/23 03:28 Room Air 08/25/23 23:00 08/25/23 22:36 Room Air Laboratory Results 08/26/23 Range/Units 07:44 Sodium 136 (136-145) mmol/L Potassium 4.8 (3.5-5.1) mmol/L Chloride 100 (98-107) mmol/L Carbon Dioxide 30 (21-32) mmol/L Anion Gap 6 (3-11) BUN 33 H (6-23) mg/dl Creatinine 1.47 H (0.6-1.2) mg/dl Est Cr Clr Drug Dosing 26.1 ml/min Est GFR ( Amer) 36.8 ml/min Est GFR (Non-Af Amer) 31.8 ml/min BUN/Creatinine Ratio 22.4 H (10-20) Glucose 97 (70-99(Fasting)) mg/dl Calcium 9.3 (8.6-10.3) mg/dl Phosphorus 3.3 (2.5-4.9) mg/dl Magnesium 2.1 (1.7-2.4) mg/dl Medications Administered Current Inpatient Medications Acetaminophen (Acetaminophen 325 Mg Tab) 650 mg PO Q4H PRN PRN Reason: Pain or Fever Stop: 09/17/23 11:59 Artificial Tears (Artificial Tears) 1 drops OP QID PRN PRN Reason: Dryness Stop: 09/17/23 12:07 Aspirin (Aspirin 81 Mg Ectab) 81 mg PO DAILY [facility] Stop: 09/17/23 12:04 Last Admin: 08/26/23 08:28 Dose: 81 mg Atorvastatin Calcium (Atorvastatin 40 Mg Tab) 40 mg PO DAILY [facility] Stop: 09/18/23 08:59 Last Admin: 08/26/23 08:28 Dose: 40 mg Bisacodyl (Bisacodyl 5 Mg Tabec) 5 mg PO DAILY PRN PRN Reason: Constipation Stop: 09/21/23 10:05 Docusate Sodium (Docusate Sodium 100 Mg Cap) 100 mg PO BID [facility] Stop: 09/17/23 20:59 Last Admin: 08/26/23 08:28 Dose: 100 mg Furosemide (Furosemide 40 Mg Tab) 40 mg PO QAM [facility] Stop: 09/25/23 09:44 Heparin Sodium (Porcine) (Heparin Sod 5,000 Unit/0.5 Ml Vial) 5,000 units SQ Q12 [facility] Stop: 09/21/23 20:59 Last Admin: 08/26/23 08:28 Dose: 5,000 units Isosorbide Mononitrate (Isosorbide [place] Extended Rel 30 Mg Tabcr) 30 mg PO QAM [facility] Stop: 09/17/23 12:14 Last Admin: 08/26/23 08:28 Dose: 30 mg Lisinopril (Lisinopril 20 Mg Tab) 20 mg PO DAILY [facility] Stop: 09/25/23 08:59 Last Admin: 08/26/23 08:28 Dose: 20 mg Magnesium Chloride (Magnesium Chloride W/Calcium 64mg Delayed Rel Tab) 64 mg PO BID [facility] Stop: 09/20/23 09:44 Last Admin: 02/04/24 08:28 Dose: 64 mg Metoprolol Succinate (Metoprolol Succ 50mg Ext Rel Tab) 50 mg PO DAILY [facility] Stop: 09/17/23 12:14 Last Admin: 08/26/23 08:28 Dose: 50 mg Pantoprazole Sodium (Pantoprazole 40 Mg Tab) 40 mg PO DAILY [facility] Stop: 09/17/23 12:14 Last Admin: 08/26/23 08:28 Dose: 40 mg Polyethylene Glycol (Polyethylene (Miralax) 17 Gm Pack) 17 gm PO DAILY PRN PRN Reason: Constipation Stop: 09/17/23 11:59 Sennosides (Senna 8.6 Mg Tab) 8.6 mg PO DAILY [facility] Stop: 09/18/23 08:59 Last Admin: 08/26/23 08:29 Dose: Not Given Trolamine Salicylate (Trolamine Salicylate 10% Crm 255 Appln/85 Gm Tube) 1 appln EXT QID PRN PRN Reason: Pain Stop: 09/17/23 12:00 (1) CHF exacerbation Heart failure type: diastolic Qualified Code(s): I50.33 - Acute on chronic diastolic (congestive) heart failure
[2023-08-26] MEDS: FUROSEMIDE 40 MG TAB PO SCH (10:26)
[2023-08-26] MEDS: FUROSEMIDE 40 MG TAB PO ONE (16:51)
[2023-08-27 07:51] LABS: BUN Creatinine Ratio 20.5 (10-20); Calcium 9.2 mg/dl (8.6-10.3); Creatinine Clr Calc Pharmacy 23.8 ml/min; Est GFR (Non-African American) 28.5 ml/min; Phosphorus 3.7 mg/dl (2.5-4.9); Potassium 4.5 mmol/L (3.5-5.1)
--- NOTE | 2023-08-27 09:46 | Hospitalist Progress Note ---
Date of Service August 27, 2023 Assessment & Plan (1) CHF exacerbation: Plan: Acute on chronic heart failure with preserved ejection fraction Valvular heart disease Bioprosthetic aortic valve Bilateral pleural effusion secondary to above --CXR:Cardiomegaly and mild pulmonary edema. Moderate bilateral pleural effusions are seen. --ECHO: A-fib RVR present during echo study. Left ventricle is hyperdynamic. EF greater than 70%. Right ventricle is normal in size and function. Mild to moderate mitral regurgitation. Moderate tricuspid regurgitation. Pulmonary artery systolic pressure is estimated to be 48 mmHg. Bioprosthetic arctic valve with normal prosthetic gradients and no significant prosthetic regurgitation. Large bilateral pleural effusions are present. --Mild troponin elevation: Demand ischemia secondary to volume overload, A-fib RVR --Saturating well on room air Repeat chest x-ray improved effusions Continued IV Lasix--adjust per Cardiology Switched to PO lasix 40 mg daily Hold lisinopril (as BP low), cont. metoprolol, isosorbide Appreciate cardiology input Monitor I's and O's, daily weight, volume status Creatinine increased, expected with IV diuresis, cont. to monitor Right upper extremity hematoma Secondary to IV heparin infiltration Mild hematuria--likely traumatic catheter Aspirin held IV heparin discontinued Monitor H&H Clinically improved (2) Atrial fibrillation, new onset: Plan: -- Normal TSH Rate controlled Continue metoprolol Initially started on IV heparin for anticoagulation: Discontinued due to infiltration, likely poor candidate for long-term anticoagulation due to dementia, fall risk, elderly Appreciate cardiology input Diarrhea Likely overflow diarrhea secondary to fecal retention --KUB:Nonobstructive bowel gas pattern. Mild fecal retention. Continue bowel regimen Monitor (3) Pleural effusion: Plan: Due to CHF Management as above (4) Hypoxia: Plan: Weaned off of supplemental oxygen - but yesterday needed oxygen after walking in hallway Monitor (5) Hypomagnesemia: Plan: Replace and monitor (6) Elevated troponin I level: Plan: As above (7) CKD (chronic kidney disease), stage III: Plan: PENNIE on CKD stage III Monitor renal function Avoid nephrotoxic agents as able Cr 1.6 hold lisinopril (8) S/P AVR: Plan: h/o bioprosthetic AoV replacement in 2007. (9) Anemia: Plan: Anemia of chronic disease Hemoglobin at baseline Monitor CBC DVT Px: Heparin SQ SCDs CODE STATUS DNI/DNR Admission and Anticipated Discharge Date Admission Date: August 18, 2023 Subjective Patient seen in follow up of CHF, afib Cardiology consulted Currently laying in bed in NAD Leg edema improved Right upper extremity hematoma continues to improve Patient denies any chest pain, abd. pain, nausea, vomiting. Reports shortness of breath on exertion. Noted rising creatinine levels and BP lower - holding lisinopril, cont. lasix Review of Systems Review of Systems: All systems reviewed & are unremarkable except as noted in Subjective Physical Exam Physical Exam: General Appearance: Thin, frail, elderly F, chronically appearing, in NAD Head: normocephalic, Atraumatic Eyes: normal inspection, EOMI Neck: supple Respiratory/Chest: Decreased breath sounds, basilar crackles, No accessory muscle use Cardiovascular: Irregularly irregular, + murmur Abdomen/GI:Soft, Non tender, Bowel sounds present Extremities/Musculoskeletal:normal inspection, 1-2+ Edema Neurologic/Psych:AAOX2, grossly no focal neurological deficits Skin: normal color, warm Results & Data Results & Data Vital Signs (Past 12 Hours) Vital Signs Temp Pulse Pulse Resp BP Pulse Ox O2 Del Method 08/27/23 07:12 36.9 C 83 16 126/84 95 Room Air 08/27/23 03:31 37 C 81 18 108/63 93 Room Air 08/26/23 23:00 78 08/26/23 22:43 37 C 72 18 126/78 93 Room Air Laboratory Results 08/27/23 Range/Units 07:05 Sodium 137 (136-145) mmol/L Potassium 4.5 (3.5-5.1) mmol/L Chloride 101 (98-107) mmol/L Carbon Dioxide 31 (21-32) mmol/L Anion Gap 5 (3-11) BUN 33 H (6-23) mg/dl Creatinine 1.61 H (0.6-1.2) mg/dl Est Cr Clr Drug Dosing 23.8 ml/min Est GFR ( Amer) 33.0 ml/min Est GFR (Non-Af Amer) 28.5 ml/min BUN/Creatinine Ratio 20.5 H (10-20) Glucose 95 (70-99(Fasting)) mg/dl Calcium 9.2 (8.6-10.3) mg/dl Phosphorus 3.7 (2.5-4.9) mg/dl Magnesium 2.0 (1.7-2.4) mg/dl Medications Administered Current Inpatient Medications Acetaminophen (Acetaminophen 325 Mg Tab) 650 mg PO Q4H PRN PRN Reason: Pain or Fever Stop: 09/17/23 11:59 Artificial Tears (Artificial Tears) 1 drops OP QID PRN PRN Reason: Dryness Stop: 09/17/23 12:07 Aspirin (Aspirin 81 Mg Ectab) 81 mg PO DAILY [facility] Stop: 09/17/23 12:04 Last Admin: 08/27/23 08:03 Dose: 81 mg Atorvastatin Calcium (Atorvastatin 40 Mg Tab) 40 mg PO DAILY [facility] Stop: 09/18/23 08:59 Last Admin: 08/27/23 08:04 Dose: 40 mg Bisacodyl (Bisacodyl 5 Mg Tabec) 5 mg PO DAILY PRN PRN Reason: Constipation Stop: 09/21/23 10:05 Docusate Sodium (Docusate Sodium 100 Mg Cap) 100 mg PO BID [facility] Stop: 09/17/23 20:59 Last Admin: 08/27/23 08:03 Dose: 100 mg Furosemide (Furosemide 40 Mg Tab) 40 mg PO QAM [facility] Stop: 09/25/23 09:44 Last Admin: 08/27/23 08:03 Dose: 40 mg Heparin Sodium (Porcine) (Heparin Sod 5,000 Unit/0.5 Ml Vial) 5,000 units SQ Q12 [facility] Stop: 09/21/23 20:59 Last Admin: 08/27/23 08:04 Dose: 5,000 units Isosorbide Mononitrate (Isosorbide [place] Extended Rel 30 Mg Tabcr) 30 mg PO QAM [facility] Stop: 09/17/23 12:14 Last Admin: 08/27/23 08:03 Dose: 30 mg Lisinopril (Lisinopril 20 Mg Tab) 20 mg PO DAILY [facility] Stop: 09/25/23 08:59 Last Admin: 08/26/23 08:28 Dose: 20 mg Magnesium Chloride (Magnesium Chloride W/Calcium 64mg Delayed Rel Tab) 64 mg PO BID [facility] Stop: 09/20/23 09:44 Last Admin: 08/27/23 08:03 Dose: 64 mg Metoprolol Succinate (Metoprolol Succ 50mg Ext Rel Tab) 50 mg PO DAILY [facility] Stop: 09/17/23 12:14 Last Admin: 08/27/23 08:04 Dose: 50 mg Pantoprazole Sodium (Pantoprazole 40 Mg Tab) 40 mg PO DAILY [facility] Stop: 09/17/23 12:14 Last Admin: 08/27/23 08:03 Dose: 40 mg Polyethylene Glycol (Polyethylene (Miralax) 17 Gm Pack) 17 gm PO DAILY PRN PRN Reason: Constipation Stop: 09/17/23 11:59 Sennosides (Senna 8.6 Mg Tab) 8.6 mg PO DAILY [facility] Stop: 09/18/23 08:59 Last Admin: 08/27/23 08:04 Dose: 8.6 mg Trolamine Salicylate (Trolamine Salicylate 10% Crm 255 Appln/85 Gm Tube) 1 ap pln EXT QID PRN PRN Reason: Pain Stop: 09/17/23 12:00 (1) CHF exacerbation Heart failure type: diastolic Qualified Code(s): I50.33 - Acute on chronic diastolic (congestive) heart failure
--- NOTE | 2023-08-27 10:46 | XRay Report ---
XR chest 1V not portable HISTORY: 88 years-old Female follow up pl. effusion acute shortness of breath COMPARISON: 08/23/2023 TECHNIQUE: PA view of the chest FINDINGS: Cardiac silhouette is enlarged. Median sternotomy with cardiac valvular prostheses. Atherosclerosis o f the aorta. No pneumothorax. Stable layering pleural effusions with bibasilar consolidation. Pulmona ry vascular congestion. Degenerative changes of the shoulders and spine. IMPRESSION: 1. Cardiomegaly with pulmonary vascular congestion. 2. Stable layering pleural effusions with bibasilar consolidation. ACT 112: Negative or not required by law. The above report was generated using voice recognition software. It may contain grammatical, syntax o r spelling errors. Electronically signed by: Lalo Noonan M.D. 08/27/2023 10:44 AM
[2023-08-28 07:25] LABS: Hemoglobin 10.3 g/dl (12.0-16.0); Mean Corpuscular Hemoglobin 32.4 pg (25.0-34.0); Mean Corpuscular Hgb Conc 32.2 g/dL (32.0-36.0); Mean Corpuscular Volume 100.6 fL (80.0-100.0); Mean Platelet Volume 10.6 fL (9.4-12.4); Platelet Count 189 K/uL (130-400); RDW Coefficient of Variation 13.1 % (11.5-14.5); Red Blood Count 3.18 M/uL (4.20-5.40); White Blood Count 6.58 K/ul (4.8-10.8)
[2023-08-28 07:43] LABS: BUN Creatinine Ratio 20.6 (10-20); Calcium 9.1 mg/dl (8.6-10.3); Creatinine Clr Calc Pharmacy 22.4 ml/min; Est GFR (African American) 30.9 ml/min; Est GFR (Non-African American) 26.6 ml/min; Phosphorus 3.8 mg/dl (2.5-4.9); Potassium 4.7 mmol/L (3.5-5.1)
[2023-08-28] MEDS: FUROSEMIDE 20 MG TAB PO SCH (09:08)
--- NOTE | 2023-08-28 18:17 | Hospitalist Progress Note ---
Date of Service August 28, 2023 Assessment & Plan (1) CHF exacerbation: Plan: Acute on chronic heart failure with preserved ejection fraction Valvular heart disease Bioprosthetic aortic valve Bilateral pleural effusion secondary to above --CXR:Cardiomegaly and mild pulmonary edema. Moderate bilateral pleural effusions are seen. --ECHO: A-fib RVR present during echo study. Left ventricle is hyperdynamic. EF greater than 70%. Right ventricle is normal in size and function. Mild to moderate mitral regurgitation. Moderate tricuspid regurgitation. Pulmonary artery systolic pressure is estimated to be 48 mmHg. Bioprosthetic arctic valve with normal prosthetic gradients and no significant prosthetic regurgitation. Large bilateral pleural effusions are present. --Mild troponin elevation: Demand ischemia secondary to volume overload, A-fib RVR --Saturating well on room air Repeat chest x-ray improved effusions Continued IV Lasix--adjust per Cardiology Switched to PO lasix 40 mg daily - however BP cont. to be low Hold lisinopril (as BP low), cont. metoprolol, isosorbide Appreciate cardiology input Monitor I's and O's, daily weight, volume status Creatinine increased, expected with IV diuresis, cont. to monitor Discussed w/ cardiology today (08/28) - no indication for lisinopril so if BP on lower side, lisinopril can be discontinued on discharge. Continue isosorbide and metoprolol. Recommend furosemide 20 daily. Monitor renal function. Right upper extremity hematoma Secondary to IV heparin infiltration Mild hematuria--likely traumatic catheter Aspirin held IV heparin discontinued Monitor H&H Clinically improved (2) Atrial fibrillation, new onset: Plan: -- Normal TSH Rate controlled Continue metoprolol Initially started on IV heparin for anticoagulation: Discontinued due to infiltration, likely poor candidate for long-term anticoagulation due to dementia, fall risk, elderly Appreciate cardiology input Diarrhea Likely overflow diarrhea secondary to fecal retention --KUB:Nonobstructive bowel gas pattern. Mild fecal retention. Continue bowel regimen Monitor (3) Pleural effusion: Plan: Due to CHF Management as above (4) Hypoxia: Plan: Weaned off of supplemental oxygen - but recently needed oxygen after walking in hallway Monitor (5) Hypomagnesemia: Plan: Replace and monitor (6) Elevated troponin I level: Plan: As above (7) CKD (chronic kidney disease), stage III: Plan: PENNIE on CKD stage III Monitor renal function Avoid nephrotoxic agents as able Cr 1.7 hold lisinopril (8) S/P AVR: Plan: h/o bioprosthetic AoV replacement in 2007. (9) Anemia: Plan: Anemia of chronic disease Hemoglobin at baseline Monitor CBC DVT Px: Heparin SQ SCDs CODE STATUS DNI/DNR Admission and Anticipated Discharge Date Admission Date: August 18, 2023 Subjective Patient seen in follow up of CHF, afib Cardiology consulted Currently sitting up in chair in NAD Leg edema improved Right upper extremity hematoma continues to improve Patient denies any chest pain, abd. pain, nausea, vomiting. Reports shortness of breath on exertion. However today was walking in hallway and did well. Noted rising creatinine levels and BP lower - holding lisinopril, cont. lasix. Discussed w/ cardiology today - no indication for lisinopril so if BP on lower side, lisinopril can be discontinued on discharge. Continue isosorbide and metoprolol. Recommend furosemide 20 daily. Monitor renal function. Review of Systems Review of Systems: All systems reviewed & are unremarkable except as noted in Subjective Physical Exam Physical Exam: General Appearance: Thin, frail, elderly F, chronically appearing, in NAD Head: normocephalic, Atraumatic Eyes: normal inspection, EOMI Neck: supple Respiratory/Chest: Decreased breath sounds, basilar crackles, No accessory muscle use Cardiovascular: Irregularly irregular, + murmur Abdomen/GI:Soft, Non tender, Bowel sounds present Extremities/Musculoskeletal:normal inspection, 1-2+ Edema Neurologic/Psych:AAOX2, grossly no focal neurological deficits Skin: normal color, warm Results & Data Results & Data Vital Signs (Past 12 Hours) Vital Signs Temp Pulse Resp BP Pulse Ox O2 Del Method 08/28/23 15:25 36.4 C L 83 18 101/52 L 95 Room Air 08/28/23 11:12 36.7 C 70 18 90/55 L 94 Room Air 08/28/23 07:54 36.4 C L 86 18 128/75 93 Room Air Laboratory Results 08/28/23 Range/Units 07:08 WBC 6.58 (4.8-10.8) K/ul RBC 3.18 L (4.20-5.40) M/uL Hgb 10.3 L (12.0-16.0) g/dl Hct 32.0 L (37.0-47.0) % MCV 100.6 H (80.0-100.0) fL MCH 32.4 (25.0-34.0) pg MCHC 32.2 (32.0-36.0) g/dL RDW Std Deviation 49.0 H (36.4-46.3) fL RDW Coeff of Jimmie 13.1 (11.5-14.5) % Plt Count 189 (130-400) K/uL MPV 10.6 (9.4-12.4) fL Sodium 136 (136-145) mmol/L Potassium 4.7 (3.5-5.1) mmol/L Chloride 101 (98-107) mmol/L Carbon Dioxide 31 (21-32) mmol/L Anion Gap 4 (3-11) BUN 35 H (6-23) mg/dl Creatinine 1.70 H (0.6-1.2) mg/dl Est Cr Clr Drug Dosing 22.4 ml/min Est GFR ( Amer) 30.9 ml/min Est GFR (Non-Af Amer) 26.6 ml/min BUN/Creatinine Ratio 20.6 H (10-20) Glucose 94 (70-99(Fasting)) mg/dl Calcium 9.1 (8.6-10.3) mg/dl Phosphorus 3.8 (2.5-4.9) mg/dl Magnesium 2.0 (1.7-2.4) mg/dl Medications Administered Current Inpatient Medications Acetaminophen (Acetaminophen 325 Mg Tab) 650 mg PO Q4H PRN PRN Reason: Pain or Fever Stop: 09/17/23 11:59 Artificial Tears (Artificial Tears) 1 drops OP QID PRN PRN Reason: Dryness Stop: 09/17/23 12:07 Aspirin (Aspirin 81 Mg Ectab) 81 mg PO DAILY [facility] Stop: 09/17/23 12:04 Last Admin: 08/28/23 08:08 Dose: 81 mg Atorvastatin Calcium (Atorvastatin 40 Mg Tab) 40 mg PO DAILY [facility] Stop: 09/18/23 08:59 Last Admin: 08/28/23 08:08 Dose: 40 mg Bisacodyl (Bisacodyl 5 Mg Tabec) 5 mg PO DAILY PRN PRN Reason: Constipation Stop: 09/21/23 10:05 Docusate Sodium (Docusate Sodium 100 Mg Cap) 100 mg PO BID [facility] Stop: 09/17/23 20:59 Last Admin: 08/28/23 08:07 Dose: 100 mg Furosemide (Furosemide 20 Mg Tab) 20 mg PO QAM [facility] Stop: 09/27/23 08:59 Last Admin: 08/28/23 09:08 Dose: 20 mg Heparin Sodium (Porcine) (Heparin Sod 5,000 Unit/0.5 Ml Vial) 5,000 units SQ Q12 [facility] Stop: 09/21/23 20:59 Last Admin: 08/28/23 08:09 Dose: 5,000 units Isosorbide Mononitrate (Isosorbide [place] Extended Rel 30 Mg Tabcr) [facility] [place]: 09/17/23 12:14 Last Admin: 08/28/23 08:08 Dose: 30 mg Lisinopril (Lisinopril 20 Mg Tab) 20 mg PO DAILY [facility] Stop: 09/25/23 08:59 Last Admin: 08/26/23 08:28 Dose: 20 mg Magnesium Chloride (Magnesium Chloride W/Calcium 64mg Delayed Rel Tab) 64 mg PO BID [facility] Stop: 09/20/23 09:44 Last Admin: 08/28/23 08:07 Dose: 64 mg Metoprolol Succinate (Metoprolol Succ 50mg Ext Rel Tab) 50 mg PO DAILY [facility] Stop: 09/17/23 12:14 Last Admin: 08/28/23 08:08 Dose: 50 mg Pantoprazole Sodium (Pantoprazole 40 Mg Tab) 40 mg PO DAILY [facility] Stop: 09/17/23 12:14 Last Admin: 08/28/23 08:09 Dose: 40 mg Polyethylene Glycol (Polyethylene (Miralax) 17 Gm Pack) 17 gm PO DAILY PRN PRN Reason: Constipation Stop: 09/17/23 11:59 Sennosides (Senna 8.6 Mg Tab) 8.6 mg PO DAILY [facility] Stop: 09/18/23 08:59 Last Admin: 08/28/23 08:09 Dose: 8.6 mg Trolamine Salicylate (Trolamine Salicylate 10% Crm 255 Appln/85 Gm Tube) 1 appln EXT QID PRN PRN Reason: Pain Stop: 09/17/23 12:00 (1) CHF exacerbation Heart failure type: diastolic Qualified Code(s): I50.33 - Acute on chronic diastolic (congestive) heart failure
[2023-08-29 07:11] LABS: BUN Creatinine Ratio 22.6 (10-20); Calcium 9.1 mg/dl (8.6-10.3); Est GFR (African American) 33.5 ml/min; Est GFR (Non-African American) 28.9 ml/min; Potassium 4.7 mmol/L (3.5-5.1)
--- NOTE | 2023-08-29 09:29 | Hospitalist Progress Note ---
Date of Service August 29, 2023 Assessment & Plan (1) CHF exacerbation: Plan: Acute on chronic heart failure with preserved ejection fraction Valvular heart disease Bioprosthetic aortic valve Bilateral pleural effusion secondary to above --CXR:Cardiomegaly and mild pulmonary edema. Moderate bilateral pleural effusions are seen. --ECHO: A-fib RVR present during echo study. Left ventricle is hyperdynamic. EF greater than 70%. Right ventricle is normal in size and function. Mild to moderate mitral regurgitation. Moderate tricuspid regurgitation. Pulmonary artery systolic pressure is estimated to be 48 mmHg. Bioprosthetic arctic valve with normal prosthetic gradients and no significant prosthetic regurgitation. Large bilateral pleural effusions are present. --Mild troponin elevation: Demand ischemia secondary to volume overload, A-fib RVR --Saturating well on room air Repeat chest x-ray improved effusions Initially on IV Lasix--per Cardiology and switched to PO Switched to PO lasix 40 mg daily - however BP cont. to be low Hold lisinopril (as BP low), cont. metoprolol, isosorbide Appreciate cardiology input Monitor I's and O's, daily weight, volume status Creatinine increased, expected with IV diuresis, cont. to monitor Discussed w/ cardiology (08/28) - no indication for lisinopril so if BP on lower side, lisinopril can be discontinued on discharge. Continue isosorbide and metoprolol. Recommend furosemide 20 daily. Monitor renal function. 08/29 Pulmonary medicine consulted for pl. effusion - discussed with pt and pt's daughter and they wish to proceed with the procedure. S/p left thoracentesis - 850 mL of fluid removed Right upper extremity hematoma Secondary to IV heparin infiltration Mild hematuria--likely traumatic catheter Aspirin held IV heparin discontinued Monitor H&H Clinically improved (2) Atrial fibrillation, new onset: Plan: -- Normal TSH Rate controlled Continue metoprolol Initially started on IV heparin for anticoagulation: Discontinued due to infiltration, likely poor candidate for long-term anticoagulation due to dementia, fall risk, elderly Appreciate cardiology input Diarrhea Likely overflow diarrhea secondary to fecal retention --KUB:Nonobstructive bowel gas pattern. Mild fecal retention. Continue bowel regimen Monitor (3) Pleural effusion: Plan: Due to CHF Management as above (4) Hypoxia: Plan: Weaned off of supplemental oxygen - but recently needed oxygen after walking in hallway Monitor (5) Hypomagnesemia: Plan: Replace and monitor (6) Elevated troponin I level: Plan: As above (7) CKD (chronic kidney disease), stage III: Plan: PENNIE on CKD stage III Monitor renal function Avoid nephrotoxic agents as able Cr 1.7 hold lisinopril (8) S/P AVR: Plan: h/o bioprosthetic AoV replacement in 2007. (9) Anemia: Plan: Anemia of chronic disease Hemoglobin at baseline Monitor CBC DVT Px: Heparin SQ SCDs CODE STATUS DNI/DNR Admission and Anticipated Discharge Date Admission Date: August 18, 2023 Subjective Patient seen in follow up of CHF, afib Cardiology consulted Currently sitting up in chair in NAD Leg edema improved Right upper extremity hematoma continues to improve Patient denies any chest pain, abd. pain, nausea, vomiting. Reports shortness of breath on exertion. Noted rising creatinine levels and BP lower - holding lisinopril Discussed w/ cardiology - no indication for lisinopril so if BP on lower side, lisinopril can be discontinued on discharge. Continue isosorbide and metoprolol. Recommend furosemide 20 daily. Monitor renal function. Consulted and discussed w/ pulmonary for pl. effusion - plan for thoracentesis today. I discussed the procedure with the pt and her daughter over the phone and they were in agreement to proceed. Review of Systems Review of Systems: All systems reviewed & are unremarkable except as noted in Subjective Physical Exam Physical Exam: General Appearance: Thin, frail, elderly F, in NAD Head: normocephalic, Atraumatic Eyes: normal inspection, EOMI Neck: supple Respiratory/Chest: Decreased breath sounds, basilar crackles, No accessory muscle use Cardiovascular: Irregularly irregular, + murmur Abdomen/GI:Soft, Non tender, Bowel sounds present Extremities/Musculoskeletal:normal inspection, 1-2+ Edema Neurologic/Psych: awake and alert, able to answer simple questions appropriately, speech fluent, no facial asymmetry Skin: normal color, warm Results & Data Results & Data Vital Signs (Past 12 Hours) Vital Signs Temp Pulse Pulse Resp BP BP Pulse Ox 08/29/23 07:55 36.9 C 88 18 117/72 92 08/29/23 07:46 77 08/29/23 03:33 36.8 C 78 18 130/81 94 08/28/23 23:01 36.7 C 80 18 117/84 92 08/28/23 23:00 75 O2 Del Method 08/29/23 07:55 Room Air 08/29/23 07:46 08/29/23 03:33 Room Air 08/28/23 23:01 Room Air 08/28/23 23:00 Laboratory Results 08/29/23 08/29/23 Range/Units 09:06 06:03 PT Pending INR Pending Sodium 136 (136-145) mmol/L Potassium 4.7 (3.5-5.1) mmol/L Chloride 101 (98-107) mmol/L Carbon Dioxide 28 (21-32) mmol/L Anion Gap 7 (3-11) BUN 36 H (6-23) mg/dl Creatinine 1.59 H (0.6-1.2) mg/dl Est Cr Clr Drug Dosing 24.0 ml/min Est GFR ( Amer) 33.5 ml/min Est GFR (Non-Af Amer) 28.9 ml/min BUN/Creatinine Ratio 22.6 H (10-20) Glucose 89 (70-99(Fasting)) mg/dl Calcium 9.1 (8.6-10.3) mg/dl Medications Administered Current Inpatient Medications Acetaminophen (Acetaminophen 325 Mg Tab) 650 mg PO Q4H PRN PRN Reason: Pain or Fever Stop: 09/17/23 11:59 Artificial Tears (Artificial Tears) 1 drops OP QID PRN PRN Reason: Dryness Stop: 09/17/23 12:07 Aspirin (Aspirin 81 Mg Ectab) 81 mg PO DAILY [facility] Stop: 09/17/23 12:04 Last Admin: 08/29/23 08:48 Dose: 81 mg Atorvastatin Calcium (Atorvastatin 40 Mg Tab) 40 mg PO DAILY [facility] Stop: 09/18/23 08:59 Last Admin: 08/29/23 08:48 Dose: 40 mg Bisacodyl (Bisacodyl 5 Mg Tabec) 5 mg PO DAILY PRN PRN Reason: Constipation Stop: 09/21/23 10:05 Docusate Sodium (Docusate Sodium 100 Mg Cap) 100 mg PO BID [facility] Stop: 09/17/23 20:59 Last Admin: 08/29/23 08:49 Dose: 100 mg Furosemide (Furosemide 20 Mg Tab) 20 mg PO QAM [facility] Stop: 09/27/23 08:59 Last Admin: 08/28/23 09:08 Dose: 20 mg Heparin Sodium (Porcine) (Heparin Sod 5,000 Unit/0.5 Ml Vial) 5,000 units SQ Q12 [facility] Stop: 09/21/23 20:59 Last Admin: 08/28/23 08:09 Dose: 5,000 units Isosorbide Mononitrate (Isosorbide [place] Extended Rel 30 Mg Tabcr) 30 mg PO QAM [facility] Stop: 09/17/23 12:14 Last Admin: 08/29/23 08:48 Dose: 30 mg Lisinopril (Lisinopril 20 Mg Tab) 20 mg PO DAILY [facility] Stop: 09/25/23 08:59 Last Admin: 08/26/23 08:28 Dose: 20 mg Magnesium Chloride (Magnesium Chloride W/Calcium 64mg Delayed Rel Tab) 64 mg PO BID [facility] Stop: 09/20/23 09:44 Last Admin: 08/29/23 08:48 Dose: 64 mg Metoprolol Succinate (Metoprolol Succ 50mg Ext Rel Tab) 50 mg PO DAILY [facility] Stop: 09/17/23 12:14 Last Admin: 08/29/23 08:48 Dose: 50 mg Pantoprazole Sodium (Pantoprazole 40 Mg Tab) 40 mg PO DAILY [facility] Stop: 09/17/23 12:14 Last Admin: 08/29/23 08:48 Dose: 40 mg Polyethylene Glycol (Polyethylene (Miralax) 17 Gm Pack) 17 gm PO DAILY PRN PRN Reason: Constipation Stop: 09/17/23 11:59 Sennosides (Senna 8.6 Mg Tab) 8.6 mg PO DAILY [facility] Stop: 09/18/23 08:59 Last Admin: 08/29/23 08:48 Dose: 8.6 mg Trolamine Salicylate (Trolamine Salicylate 10% Crm 255 Appln/85 Gm Tube) 1 appln EXT QID PRN PRN Reason: Pain Stop: 09/17/23 12:00 (1) CHF exacerbation Heart failure type: diastolic Qualified Code(s): I50.33 - Acute on chronic diastolic (congestive) heart failure
[2023-08-29 09:54] LABS: INR 1.1 (0.9-1.1); Prothrombin Time 11.7 Seconds (9.0-12.0)
--- NOTE | 2023-08-29 14:26 | Pulmonary Consultation ---
Date of Consultation August 29, 2023 Assessment & Plan (1) Pleural effusion: Patient with evidence of bilateral effusions, right greater than left based on chest x-ray. She has a history of diastolic CHF. Chest x-ray 08/27/2023 shows large layering right-sided effusion. Radiology consulted for thoracentesis. Patient verbally consents for thoracentesis at this time. Will follow pleural fluid studies. History of Present Illness Reason for Consultation: Bilateral pleural effusions Attending Physician: Erik England MD History of Present Illness 88-year-old female who resides in [facility] who presented to the hospital 08/18/2023 due to shortness of breath. She has been diuresed during his hospital stay and has refractory bilateral pleural effusions. Pulmonary is consulted for assistance with management of pleural effusions. Reportedly the patient has been complaining of shortness of breath with walking. She denies any shortness of breath at rest. Chest x-rays have been demonstrating layering right pleural effusion and small to moderate left pleural effusion. Patient denies any chest pain, fevers, chills or night sweats. Allergies Allergy/AdvReac Type Severity Reaction Status Date / Time allopurinol Allergy Unknown ON [place] Verified 08/18/23 11:23 [facility] Cephalosporins Allergy Unknown ON [place] Verified 08/18/23 11:23 [facility] gramicidin D [From Neocidin] Allergy Unknown Redness of Verified 08/18/23 11:23 Skin neomycin [From Neocidin] Allergy Unknown Redness of Verified 08/18/23 11:23 Skin polymyxin B [From Neocidin] Allergy Unknown Redness of Verified 08/18/23 11:23 Skin chocolate AdvReac Unknown Verified 08/18/23 11:28 Home Medications Medication Instructions Recorded Confirmed Type aspirin 81 mg tablet,delayed 81 mg PO DAILY 06/11/18 08/18/23 History release (Lyly Low Dose Aspirin) docusate sodium 100 mg capsule 100 mg PO BID 06/11/18 08/18/23 History furosemide 20 mg tablet 20 mg PO MOWEFR@0900 06/11/18 08/18/23 History acetaminophen 500 mg tablet 500 mg PO Q4 PRN Pain 07/29/18 08/18/23 History (Acetaminophen Extra Strength) ferrous sulfate 325 mg (65 mg 325 mg PO TID 07/29/18 08/18/23 History iron) tablet aluminum-mag hydroxide-simethicone 10 - 20 ml PO QID PRN 09/27/19 08/18/23 History 400 mg-400 mg-40 mg/5 mL oral susp HEARTBURN/INDIGESTION/GAS (Antacid-Simethicone) dimethicone-zinc oxide topical 1 applic topical DAILY PRN Skin 09/27/19 08/18/23 History cream (Rosemarie Protect Irritation (dimethicone-zinc oxide) topical cream) fexofenadine 180 mg tablet 180 mg PO DAILY 09/27/19 08/18/23 History sennosides 8.6 mg tablet 8.6 mg PO DAILY Constipation 09/27/19 08/18/23 History atorvastatin 40 mg tablet 40 mg PO DAILY #30 tabs 10/01/19 08/18/23 Rx nitroglycerin 0.4 mg sublingual 0.4 mg sublingual UD PRN chest 10/01/19 08/18/23 Rx tablet (Nitrostat) pain #25 tabs isosorbide mononitrate 30 mg 30 mg PO QAM #30 tabs 10/27/19 08/18/23 Rx tablet,extended release 24 hr amoxicillin 500 mg capsule 2,000 mg PO DAILY PRN 1 hour prior 08/04/22 08/18/23 History to dental work docosanol 10 % topical cream 1 applic topical UD PRN Cold Sores 08/04/22 08/18/23 History (Abreva) omeprazole 20 mg capsule,delayed 20 mg PO DAILY 08/04/22 08/18/23 History release peg 400-propylene glycol (PF) 0.4 1 drp OPB BID 08/04/22 08/18/23 History %-0.3 % eye drops in a dropperette (Systane (PF)) psyllium seed (sugar) oral powder 1 tbsp PO DAILY 08/04/22 08/18/23 History (Metamucil [place] oral powder) trolamine salicylate 10 % topical 1 applic topical QID PRN Pain 08/04/22 08/18/23 History cream (Aspercreme) metoprolol succinate 50 mg 50 mg PO DAILY #30 tabs 08/06/22 08/18/23 Rx tablet,extended release 24 hr cyanocobalamin (vitamin B-12) 500 1,000 mcg (2 x 500 mcg) PO QAM #60 08/09/22 08/18/23 Rx mcg tablet tabs cholecalciferol (vitamin D3) 50 50 mcg PO DAILY 08/18/23 08/18/23 History mcg (2,000 unit) tablet (Vitamin D3) diphenhydramine HCl 25 mg capsule 25 mg PO HS PRN allergies 08/18/23 08/18/23 History (Benadryl) lisinopril 30 mg tablet 30 mg PO DAILY 08/18/23 08/18/23 History Patient History Medical History Dementia Chronic diastolic heart failure Dyslipidemia NSTEMI (non-ST elevated myocardial infarction) 09/2019 Chronic kidney disease, stage 3 (moderate) Gout Osteoarthritis Diverticular disease Cervical cancer 1997--sx History of colon polyps Aortic valve stenosis Schatzki's ring History of esophageal dilatation History of falling Polymyalgia rheumatica Hypertension Gout Status post closed fracture of right femur Surgical History History of vein stripping x2 H/O total hysterectomy History of colonoscopy H/O cataract extraction History of cardiac cath 08/20/2007 History of breast biopsy History of cholecystectomy History of esophagogastroduodenoscopy (EGD) H/O aortic valve replacement 09/2007 @ [facility] [place] Family History Mother Rectal cancer Social History Smoking Status: Former smoker Tobacco Type: Cigarettes Second Hand Exposure: No; Do You Dip or Chew Tobacco: No; Tobacco Cessation Education Requested by Patient: No Hx Alcohol Use: Yes Alcohol type: beer Hx Substance Use: No Preferred Language: Tuvaluan Communication Ability: Effective Teacher Private Required: No Beliefs That Will Affect Care: None Current Living Situation: Alone Current Living Situation Comment: [facility] current occupational status: retired Other Information That Helps Us Care for You: No Feels Safe at Home: Yes Assistive Devices: Walker Review of Systems Review of Systems: All systems reviewed & are unremarkable except as noted in HPI & below Physical Exam Physical Exam: Constitutional: Patient appears to be of their stated age. Patient is in no apparent distress. Patient is well-developed. Eyes: Pupils are equal round and reactive to light. Conjunctivae are normal. Anicteric sclera. Ears nose, mouth and throat: Mallampati class 2. Normal posterior oropharynx. Uvula is midline. Neck: Trachea is midline. Visual inspection is normal. Respiratory: Bilateral lower lobe crackles. No significant tachypnea or increased work of breathing. Cardiovascular: Regular rate and rhythm. No murmurs. No edema. Gastrointestinal: Normal bowel sounds, soft, nontender and nondistended. No hepatosplenomegaly noted. Musculoskeletal: No cyanosis. Patient is able to move all extremities. Strength is 5 out of 5 in the upper and lower extremities. Skin: No rashes, warm dry and intact. Neurologic: No obvious focal neurological deficits seen. Psychiatric: Alert and oriented x3 with a euthymic affect. Results & Data Results & Data Vital Signs (Past 12 Hours) Vital Signs Temp Pulse Pulse Resp BP BP Pulse Ox 08/29/23 14:11 96 08/29/23 11:47 36.7 C 83 18 100/63 95 08/29/23 07:55 36.9 C 88 18 117/72 92 08/29/23 07:46 77 08/29/23 03:33 36.8 C 78 18 130/81 94 O2 Del Method 08/29/23 14:11 08/29/23 11:47 Room Air 08/29/23 07:55 Room Air 08/29/23 07:46 08/29/23 03:33 Room Air PG Care Time/CCT Total # of Minutes Spent Total Time Spent with Patient: Total time spent is greater than 50% in coordination of care (as documented) at patient's floor/unit and/or counseling patient: Coding Level of Care Code 05151 INT INP/OBS CARE 1/40MIN Diagnoses Pleural effusion J90
--- NOTE | 2023-08-29 15:48 | Ultrasound Report ---
ULTRASOUND-GUIDED THORACENTESIS CLINICAL HISTORY: Left pleural effusion PROCEDURE: Procedure and risks were explained. Informed consent was obtained. A final timeout was com pleted. The left thorax was prepped and draped in sterile fashion. 1% buffered lidocaine was utilized for skin anesthesia. Utilizing ultrasound guidance, a 5 Singaporean safety centesis catheter was advanced into the left pleural effusion. Ultrasound image was obtained. A total of 850 mL of yellow pleural fluid was removed and s ent to the lab. The catheter was removed and Band-Aid applied. The patient tolerated the procedure we ll. Vital signs will be monitored postprocedure. Postprocedure chest x-ray will be obtained. IMPRESSION: Ultrasound-guided thoracentesis as above. Performed, dictated, and signed by Rayo Noriega PA-C; to be co-signed by Dr. Ludwig Braga. Electronically signed by: Ludwig Braga M.D. 08/29/2023 3:48 PM
--- NOTE | 2023-08-29 16:08 | XRay Report ---
XR chest 1V not portable CLINICAL HISTORY: s/p left thoracentesis COMPARISON STUDY: Chest radiograph August 27, 2023. FINDINGS: There is no pneumothorax following left thoracentesis. The left pleural effusion has signif icantly decreased in size. Right pleural effusion with right basilar opacity is again noted. Cardiome zach with mild pulmonary vascular congestion. IMPRESSION: 1. No pneumothorax following left thoracentesis. Significant decrease in size of the left pleural eff usion. 2. Small to moderate right pleural effusion with right basilar opacity. 3. Cardiomegaly with pulmonary vascular congestion. ACT 112: Negative or not required by law. Electronically signed by: Conrado Skaggs M.D. 08/29/2023 4:07 PM
[2023-08-30 07:36] LABS: Hematocrit (blood only) 35.5 % (37.0-47.0); Hemoglobin 11.4 g/dl (12.0-16.0); Mean Corpuscular Hemoglobin 32.2 pg (25.0-34.0); Mean Corpuscular Hgb Conc 32.1 g/dL (32.0-36.0); Mean Corpuscular Volume 100.3 fL (80.0-100.0); Mean Platelet Volume 10.8 fL (9.4-12.4); Platelet Count 217 K/uL (130-400); RDW Standard Deviation 48.5 fL (36.4-46.3); Red Blood Count 3.54 M/uL (4.20-5.40); White Blood Count 7.43 K/ul (4.8-10.8)
[2023-08-30 07:57] LABS: Calcium 9.2 mg/dl (8.6-10.3); Est GFR (Non-African American) 28.5 ml/min; Magnesium 2.1 mg/dl (1.7-2.4); Phosphorus 3.5 mg/dl (2.5-4.9); Potassium 5.5 mmol/L (3.5-5.1)
--- NOTE | 2023-08-30 19:03 | Hospitalist Progress Note ---
Date of Service August 30, 2023 Assessment & Plan (1) CHF exacerbation: Plan: Acute on chronic heart failure with preserved ejection fraction Valvular heart disease Bioprosthetic aortic valve Bilateral pleural effusion secondary to above --CXR:Cardiomegaly and mild pulmonary edema. Moderate bilateral pleural effusions are seen. --ECHO: A-fib RVR present during echo study. Left ventricle is hyperdynamic. EF greater than 70%. Right ventricle is normal in size and function. Mild to moderate mitral regurgitation. Moderate tricuspid regurgitation. Pulmonary artery systolic pressure is estimated to be 48 mmHg. Bioprosthetic arctic valve with normal prosthetic gradients and no significant prosthetic regurgitation. Large bilateral pleural effusions are present. --Mild troponin elevation: Demand ischemia secondary to volume overload, A-fib RVR --Saturating well on room air Repeat chest x-ray improved effusions Initially on IV Lasix--per Cardiology and switched to PO Switched to PO lasix 40 mg daily - however BP continued to be low Hold lisinopril (as BP low), cont. metoprolol, isosorbide Appreciate cardiology input Monitor I's and O's, daily weight, volume status Creatinine increased, expected with IV diuresis, cont. to monitor Discussed w/ cardiology (08/28) - no indication for lisinopril so if BP on lower side, lisinopril can be discontinued on discharge. Continue isosorbide and metoprolol. Recommend furosemide 20 daily. Monitor renal function. 08/29 Pulmonary medicine consulted for pl. effusion - discussed with pt and pt's daughter and they wish to proceed with the procedure. S/p left thoracentesis - 850 mL of fluid removed 08/30 Breathing improved however BP continues to be low and Cr elev. at 1.6. Cont. to monitor. lasix on hold. K elev. at 5.5. re-check PM and tmrw AM Right upper extremity hematoma Secondary to IV heparin infiltration Mild hematuria--likely traumatic catheter Aspirin held IV heparin discontinued Monitor H&H Clinically improved (2) Atrial fibrillation, new onset: Plan: -- Normal TSH Rate controlled Continue metoprolol Initially started on IV heparin for anticoagulation: Discontinued due to infiltration, likely poor candidate for long-term anticoagulation due to ramon ntia, fall risk, elderly Appreciate cardiology input Diarrhea Likely overflow diarrhea secondary to fecal retention --KUB:Nonobstructive bowel gas pattern. Mild fecal retention. Continue bowel regimen Monitor (3) Pleural effusion: Plan: Due to CHF Management as above (4) Hypoxia: Plan: Weaned off of supplemental oxygen - but recently needed oxygen after walking in hallway Monitor (5) Hypomagnesemia: Plan: Replace and monitor (6) Elevated troponin I level: Plan: As above (7) CKD (chronic kidney disease), stage III: Plan: PENNIE on CKD stage III Monitor renal function Avoid nephrotoxic agents as able Cr 1.7 hold lisinopril, hold lasix (8) S/P AVR: Plan: h/o bioprosthetic AoV replacement in 2007. (9) Anemia: Plan: Anemia of chronic disease Hemoglobin at baseline Monitor CBC DVT Px: Heparin SQ SCDs CODE STATUS DNI/DNR Admission and Anticipated Discharge Date Admission Date: August 18, 2023 Subjective Patient seen in follow up of CHF, afib Cardiology consulted Currently sitting up in chair in NAD Leg edema improved Right upper extremity hematoma continues to improve Patient denies any chest pain, abd. pain, nausea, vomiting. Reports shortness of breath on exertion. Noted rising creatinine levels and BP lower - holding lisinopril Discussed w/ cardiology - no indication for lisinopril so if BP on lower side, lisinopril can be discontinued on discharge. Continue isosorbide and metoprolol. Recommend furosemide 20 daily. Monitor renal function. Consulted and discussed w/ pulmonary for pl. effusion - s/p left thoracentesis yesterday. Pt reports feeling better and improved breathing. Review of Systems Review of Systems: All systems reviewed & are unremarkable except as noted in Subjective Physical Exam Physical Exam: General Appearance: Thin, frail, elderly F, in NAD Head: normocephalic, Atraumatic Eyes: normal inspection, EOMI Neck: supple Respiratory/Chest: Decreased breath sounds, basilar crackles, No accessory muscle use Cardiovascular: Irregularly irregular, + murmur Abdomen/GI:Soft, Non tender, Bowel sounds present Extremities/Musculoskeletal:normal inspection, 1-2+ Edema Neurologic/Psych: awake and alert, able to answer simple questions appropriately, speech fluent, no facial asymmetry Skin: normal color, warm Results & Data Results & Data Vital Signs (Past 12 Hours) Vital Signs Temp Pulse Pulse Resp BP Pulse Ox O2 Del Method 08/30/23 16:04 81 02/08/24 15:47 37.1 C 79 18 96/58 L 92 Room Air 08/30/23 15:29 36.8 C 86 18 88/54 L 96 Room Air 08/30/23 11:37 36.8 C 79 18 97/64 L 95 Room Air 08/30/23 07:45 36.8 C 84 18 119/72 95 Room Air 08/30/23 07:04 78 Laboratory Results 08/30/23 Range/Units 07:03 WBC 7.43 (4.8-10.8) K/ul RBC 3.54 L (4.20-5.40) M/uL Hgb 11.4 L (12.0-16.0) g/dl Hct 35.5 L (37.0-47.0) % MCV 100.3 H (80.0-100.0) fL MCH 32.2 (25.0-34.0) pg MCHC 32.1 (32.0-36.0) g/dL RDW Std Deviation 48.5 H (36.4-46.3) fL RDW Coeff of Jimmie 13.0 (11.5-14.5) % Plt Count 217 (130-400) K/uL MPV 10.8 (9.4-12.4) fL Sodium 136 (136-145) mmol/L Potassium 5.5 H (3.5-5.1) mmol/L Chloride 103 (98-107) mmol/L Carbon Dioxide 29 (21-32) mmol/L Anion Gap 4 (3-11) BUN 37 H (6-23) mg/dl Creatinine 1.61 H (0.6-1.2) mg/dl Est Cr Clr Drug Dosing 24.0 ml/min Est GFR ( Amer) 33.0 ml/min Est GFR (Non-Af Amer) 28.5 ml/min BUN/Creatinine Ratio 23.0 H (10-20) Glucose 97 (70-99(Fasting)) mg/dl Calcium 9.2 (8.6-10.3) mg/dl Phosphorus 3.5 (2.5-4.9) mg/dl Magnesium 2.1 (1.7-2.4) mg/dl Medications Administered Current Inpatient Medications Acetaminophen (Acetaminophen 325 Mg Tab) 650 mg PO Q4H PRN PRN Reason: Pain or Fever Stop: 09/17/23 11:59 Artificial Tears (Artificial Tears) 1 drops OP QID PRN PRN Reason: Dryness Stop: 09/17/23 12:07 Aspirin (Aspirin 81 Mg Ectab) 81 mg PO DAILY [facility] Stop: 09/17/23 12:04 Last Admin: 08/30/23 08:28 Dose: 81 mg Atorvastatin Calcium (Atorvastatin 40 Mg Tab) 40 mg PO DAILY [facility] Stop: 09/18/23 08:59 Last Admin: 08/30/23 08:26 Dose: 40 mg Bisacodyl (Bisacodyl 5 Mg Tabec) 5 mg PO DAILY PRN PRN Reason: Constipation Stop: 09/21/23 10:05 Docusate Sodium (Docusate Sodium 100 Mg Cap) 100 mg PO BID [facility] Stop: 09/17/23 20:59 Last Admin: 08/30/23 08:26 Dose: 100 mg Furosemide (Furosemide 20 Mg Tab) 20 mg PO QAM [facility] Stop: 09/27/23 08:59 Last Admin: 08/28/23 09:08 Dose: 20 mg Heparin Sodium (Porcine) (Heparin Sod 5,000 Unit/0.5 Ml Vial) 5,000 units SQ Q12 [facility] Stop: 09/21/23 20:59 Last Admin: 08/28/23 08:09 Dose: 5,000 units Isosorbide Mononitrate (Isosorbide Taliaferro Extended Rel 30 Mg Tabcr) 30 mg PO QAM [facility] Stop: 09/17/23 12:14 Last Admin: 08/30/23 08:26 Dose: 30 mg Lisinopril (Lisinopril 20 Mg Tab) 20 mg PO DAILY [facility] Stop: 09/25/23 08:59 Last Admin: 08/26/23 08:28 Dose: 20 mg Magnesium Chloride (Magnesium Chloride W/Calcium 64mg Delayed Rel Tab) 64 mg PO BID [facility] Stop: 09/20/23 09:44 Last Admin: 08/29/23 20:03 Dose: 64 mg Metoprolol Succinate (Metoprolol Succ 50mg Ext Rel Tab) 50 mg PO DAILY [facility] Stop: 09/17/23 12:14 Last Admin: 08/30/23 08:27 Dose: 50 mg Pantoprazole Sodium (Pantoprazole 40 Mg Tab) 40 mg PO DAILY [facility] Stop: 09/17/23 12:14 Last Admin: 08/30/23 08:28 Dose: 40 mg Polyethylene Glycol (Polyethylene (Miralax) 17 Gm Pack) 17 gm PO DAILY PRN PRN Reason: Constipation Stop: 09/17/23 11:59 Sennosides (Senna 8.6 Mg Tab) 8.6 mg PO DAILY [facility] Stop: 09/18/23 08:59 Last Admin: 08/30/23 08:27 Dose: 8.6 mg Trolamine Salicylate (Trolamine Salicylate 10% Crm 255 Appln/85 Gm Tube) 1 appln EXT QID PRN PRN Reason: Pain Stop: 09/17/23 12:00 (1) CHF exacerbation Heart failure type: diastolic Qualified Code(s): I50.33 - Acute on chronic diastolic (congestive) heart failure
[2023-08-30 19:50] LABS: Calcium 9.1 mg/dl (8.6-10.3); Potassium 5.2 mmol/L (3.5-5.1)
[2023-08-30 19:55] LABS: BUN Creatinine Ratio 19.9 (10-20); Creatinine Clr Calc Pharmacy 19.2 ml/min; Est GFR (African American) 25.2 ml/min; Est GFR (Non-African American) 21.8 ml/min
[2023-08-31 07:37] LABS: Hematocrit (blood only) 33.1 % (37.0-47.0); Hemoglobin 10.9 g/dl (12.0-16.0); Mean Corpuscular Hemoglobin 32.5 pg (25.0-34.0); Mean Corpuscular Hgb Conc 32.9 g/dL (32.0-36.0); Mean Corpuscular Volume 98.8 fL (80.0-100.0); Mean Platelet Volume 10.8 fL (9.4-12.4); Platelet Count 210 K/uL (130-400); RDW Coefficient of Variation 13.1 % (11.5-14.5); RDW Standard Deviation 47.3 fL (36.4-46.3); Red Blood Count 3.35 M/uL (4.20-5.40)
[2023-08-31 07:55] LABS: BUN Creatinine Ratio 22.8 (10-20); Calcium 8.8 mg/dl (8.6-10.3); Creatinine Clr Calc Pharmacy 22.2 ml/min; Est GFR (African American) 28.8 ml/min; Est GFR (Non-African American) 24.9 ml/min; Phosphorus 3.3 mg/dl (2.5-4.9); Potassium 5.1 mmol/L (3.5-5.1)
--- NOTE | 2023-08-31 12:53 | Hospitalist Progress Note ---
Date of Service August 31, 2023 Assessment & Plan (1) CHF exacerbation: Plan: Acute on chronic heart failure with preserved ejection fraction Valvular heart disease Bioprosthetic aortic valve Bilateral pleural effusion secondary to above --CXR:Cardiomegaly and mild pulmonary edema. Moderate bilateral pleural effusions are seen. --ECHO: A-fib RVR present during echo study. Left ventricle is hyperdynamic. EF greater than 70%. Right ventricle is normal in size and function. Mild to moderate mitral regurgitation. Moderate tricuspid regurgitation. Pulmonary artery systolic pressure is estimated to be 48 mmHg. Bioprosthetic arctic valve with normal prosthetic gradients and no significant prosthetic regurgitation. Large bilateral pleural effusions are present. --Mild troponin elevation: Demand ischemia secondary to volume overload, A-fib RVR --Saturating well on room air Repeat chest x-ray improved effusions --S/P left thoracentesis Received IV Lasix Given low BP, will continue Lasix 20 mg daily for now and uptitrate to 40 mg daily if BP supports Appreciate cardiology input Needs follow-up with cardiology on discharge Continue to hold lisinopril due to low BP and PENNIE Continue isosorbide, metoprolol with holding parameters Monitor I's and O's, daily weight, volume status Plan to be discharged to rehab facility today Right upper extremity hematoma--Resolved Secondary to IV heparin infiltration Mild hematuria--likely traumatic catheter--Resolved Aspirin held IV heparin discontinued Monitor H&H Clinically improved (2) Atrial fibrillation, new onset: Plan: -- Normal TSH Rate controlled Continue metoprolol Initially started on IV heparin for anticoagulation: Discontinued due to infiltration, likely poor candidate for long-term anticoagulation due to dementia, fall risk, elderly Appreciate cardiology input Diarrhea Likely overflow diarrhea secondary to fecal retention --KUB:Nonobstructive bowel gas pattern. Mild fecal retention. Continue bowel regimen as needed Monitor (3) Pleural effusion: Plan: Due to CHF Management as above (4) Hypoxia: Plan: Weaned off of supplemental oxygen Monitor (5) Hypomagnesemia: Plan: Replace and monitor (6) Elevated troponin I level: Plan: As above (7) CKD (chronic kidney disease), stage III: Plan: PENNIE on CKD stage III Monitor renal function Avoid nephrotoxic agents as able Cr 1.8 hold lisinopril (8) S/P AVR: Plan: h/o bioprosthetic AoV replacement in 2007. (9) Anemia: Plan: Anemia of chronic disease Hemoglobin at baseline Monitor CBC DVT Px: Heparin SQ SCDs CODE STATUS DNI/DNR Disposition SNF Admission and Anticipated Discharge Date Admission Date: August 18, 2023 Subjective Patient is seen and examined at bedside States feeling much better today States having minimal dyspnea on exertion but otherwise no complaints Denies any chest pain, dizziness, nausea, vomiting, abdominal pain Plan to be discharged to rehab facility today Review of Systems Review of Systems: All systems reviewed & are unremarkable except as noted in Subjective Physical Exam Physical Exam: Physical Exam: Vitals signs as noted above General Appearance: Thin, frail, elderly, chronically appearing, no apparent distress Head: normocephalic, Atraumatic Eyes: normal inspection, EOMI Neck: supple, Trachea midline Respiratory/Chest: Decreased breath sounds, R basal crackles, No accessory muscle use Cardiovascular: Irregularly irregular, + murmur Abdomen/GI:Soft, Non tender, Bowel sounds present Extremities/Musculoskeletal:normal inspection, Trace Edema Neurologic/Psych:AAOX2, grossly no focal neurological deficits Skin: normal color, warm Results & Data Results & Data Vital Signs (Past 12 Hours) Vital Signs Temp Pulse Resp BP Pulse Ox O2 Del Method 08/31/23 11:44 36.5 C 88 19 99/62 L 95 Room Air 08/31/23 08:14 Room Air 08/31/23 07:42 36.7 C 82 18 125/72 93 Room Air 08/31/23 03:19 36.5 C 75 20 118/51 L 94 Room Air Laboratory Results Short CBC 08/31/23 Range/Units 06:42 WBC 7.40 (4.8-10.8) K/ul Hgb 10.9 L (12.0-16.0) g/dl Hct 33.1 L (37.0-47.0) % Plt Count 210 (130-400) K/uL BMP 08/30/23 08/31/23 19:11 06:42 Sodium 133 L 134 L Potassium 5.2 H 5.1 Chloride 100 101 Carbon Dioxide 28 28 BUN 40 H 41 H Creatinine 2.01 H D 1.80 H Glucose 125 H 95 Calcium 9.1 8.8 (1) CHF exacerbation Heart failure type: diastolic Qualified Code(s): I50.33 - Acute on chronic diastolic (congestive) heart failure
--- NOTE | 2023-08-31 13:02 | Discharge Summary ---
Date of Service August 31, 2023 Admission HPI Per Admitting Provider 88 yo F with dementia presents from [facility] where she resides, for concerns of shortness of breath. She cannot tell me for how long she has had symptoms but states that she noticed not being able to walk but a few steps because of shortness of breath. Typically, she ambulates with her walker to the dining molina without issues. She is somewhat short of breath at rest today. She denies any chest pain, but states she feels she is having difficulty catching her breath. She was noted to be in atrial fibrillation today, which is a new diagnosis. Her cardiac history includes bioprosthetic aortic valve replacement in 2007 at [facility]. In September 2019 she presented with heart failure and a NSTEMI and declined heart catheterization only to return two weeks later to the hospital with additional chest pain and a NSTEMI. She underwent cardiac catheterization at that point which showed a high grade stenosis in the mid LAD as well as a high grade stenosis in the right coronary artery with collaterals. CAD s/p PCI. Symptoms today reportedly began in the last 24 hours. Per ER notes, EMS noted orthopnea nad lower extremity swelling as well as tachycardia and elevated blood pressure. She was treated with nitroglycerin in the field and placed on supplemental oxygen with improvement in symptoms. On arrival to the ER vitals were 151/91, P 90, R 16, afebrile, oxygenating 97% on room air. Some convers ational dyspnea was noted and there diminished breath sounds noted with rales throughout. Mag was replaced. CXR revealed bilateral pleural effusions that are new compared to CXR from 08/06/23. A urinary catheter was placed and she was started on Lasix 40mg IV. HS trop was 24.5 with repeat pending. BNP is 409, respiratory biofire panel is pending. Her BP increased to 195/130 and nitro paste was administered. She has had 800cc urine out in response to the 40mg IV given 1-2 hours ago. Admission Exam Per Admitting Provider GENERAL: Disoriented, slightly anxious, repetitive eye blinking, repetitively uttering 'my name is Batsheva', no respiratory distress SKIN: Pallor, warm HEENT: Pale palpebral conjunctivae, no ptosis, dry buccal mucosa NECK : Supple, no tenderness CHEST : CTA, no tenderness HEART : RRR, no obvious murmurs ABDOMEN: Some distention, nontender EXTREMITIES : No LE swelling/tenderness, no other conspicuous deformities noted NEUROLOGIC : Disoriented, no facial asymmetry, gait and stance not assessed Principal Diagnosis Acute on chronic heart failure with preserved ejection fraction Valvular heart disease Bioprosthetic aortic valve Bilateral pleural effusion Acute kidney injury on CKD III Discharge Data Allergies Allergy/AdvReac Type Severity Reaction Status Date / Time allopurinol Allergy Unknown ON NOTTAWASEPPI POT[place]ATOMI Verified 08/18/23 11:23 [facility] MED LIST Cephalosporins Allergy Unknown ON NOTTAWASEPPI POTAWATOMI Verified 08/18/23 11:23 [facility] MED LIST gramicidin D [From Neocidin] Allergy Unknown Redness of Verified 08/18/23 11:23 Skin neomycin [From Neocidin] Allergy Unknown Redness of Verified 08/18/23 11:23 Skin polymyxin B [From Neocidin] Allergy Unknown Redness of Verified 08/18/23 11:23 Skin chocolate AdvReac Unknown Verified 08/18/23 11:28 Consultations 08/18/23 09:52 ED Decision to Admit Stat 08/18/23 12:00 Consult Cardiology Routine 08/28/23 18:42 Consult Pulmonology Routine Procedures Performed Laboratory Results WBC 7.40 K/ul (4.8-10.8) 08/31/23 06:42 RBC 3.35 M/uL (4.20-5.40) L 08/31/23 06:42 Hgb 10.9 g/dl (12.0-16.0) L 08/31/23 06:42 Hct 33.1 % (37.0-47.0) L 08/31/23 06:42 MCV 98.8 fL (80.0-100.0) 08/31/23 06:42 MCH 32.5 pg (25.0-34.0) 08/31/23 06:42 MCHC 32.9 g/dL (32.0-36.0) 08/31/23 06:42 RDW Std Deviation 47.3 fL (36.4-46.3) H 08/31/23 06:42 RDW Coeff of Jimmie 13.1 % (11.5-14.5) 08/31/23 06:42 Plt Count 210 K/uL (130-400) 08/31/23 06:42 MPV 10.8 fL (9.4-12.4) 08/31/23 06:42 Immature Gran % (Auto) 0.3 % 08/21/23 02:10 Neut % (Auto) 76.3 % 08/21/23 02:10 Lymph % (Auto) 8.7 % 08/21/23 02:10 Mcnairy % (Auto) 9.0 % 08/21/23 02:10 Eos % (Auto) 5.1 % 08/21/23 02:10 Baso % (Auto) 0.6 % 08/21/23 02:10 Neut # (Auto) 5.95 K/uL (1.40-6.50) 08/21/23 02:10 Lymph # (Auto) 0.68 K/uL (1.20-3.40) L 08/21/23 02:10 Mcnairy # (Auto) 0.70 K/uL (0.11-0.59) H 08/21/23 02:10 Eos # (Auto) 0.40 K/uL (0.00-0.50) 08/21/23 02:10 Baso # (Auto) 0.05 K/uL (0.00-0.20) 08/21/23 02:10 Immature Gran # (Auto) 0.02 K/uL (0.01-0.20) 08/21/23 02:10 PT 11.7 Seconds (9.0-12.0) 08/29/23 09:06 INR 1.1 (0.9-1.1) 08/29/23 09:06 APTT 26 Seconds (21-31) 08/18/23 08:45 PTT Ratio 0.9 08/18/23 08:45 Heparin Anti-Xa, Unfract 0.31 IU/ml (0.3-0.7) 08/21/23 02:10 Sodium 134 mmol/L (136-145) L 08/31/23 06:42 Potassium 5.1 mmol/L (3.5-5.1) 08/31/23 06:42 Chloride 101 mmol/L (98-107) 08/31/23 06:42 Carbon Dioxide 28 mmol/L (21-32) 08/31/23 06:42 Anion Gap 5 (3-11) 08/31/23 06:42 BUN 41 mg/dl (6-23) H 08/31/23 06:42 Creatinine 1.80 mg/dl (0.6-1.2) H 08/31/23 06:42 Est Cr Clr Drug Dosing 22.2 ml/min 08/31/23 06:42 Est GFR ( Amer) 28.8 ml/min 08/31/23 06:42 Est GFR (Non-Af Amer) 24.9 ml/min 08/31/23 06:42 BUN/Creatinine Ratio 22.8 (10-20) H 08/31/23 06:42 Glucose 95 mg/dl (70-99(Fasting)) 08/31/23 06:42 Calcium 8.8 mg/dl (8.6-10.3) 08/31/23 06:42 Phosphorus 3.3 mg/dl (2.5-4.9) 08/31/23 06:42 Magnesium 2.0 mg/dl (1.7-2.4) 08/31/23 06:42 Total Bilirubin 1.3 mg/dl (0.2-1.0) H 08/18/23 08:45 AST 18 U/L (13-39) 08/18/23 08:45 ALT 21 U/L (7-52) 08/18/23 08:45 Alkaline Phosphatase 70 U/L (34-104) 08/18/23 08:45 Troponin I High Sens 34.4 pg/ml (0-14) H 08/18/23 20:34 B-Natriuretic Peptide 409 pg/ml (0-100) H 08/18/23 08:45 Total Protein 6.2 gm/dl (6.0-8.3) 08/18/23 08:45 Albumin 3.9 gm/dl (3.4-5.0) 08/18/23 08:45 Globulin 2.3 gm/dl (2.5-4.0) L 08/18/23 08:45 Albumin/Globulin Ratio 1.7 (0.9-2) 08/18/23 08:45 TSH 1.979 uIu/ml (0.300-4.500) 08/18/23 08:45 Adenovirus (PCR) Not Detected (NotDetected) 08/18/23 08:45 B. pertussis DNA (PCR) Not Detected (NotDetected) 08/18/23 08:45 B.parapertussis DNA PCR Not Detected (NotDetected) 08/18/23 08:45 C. pneumoniae DNA (PCR) Not Detected (NotDetected) 08/18/23 08:45 Coronavirus OC43 (PCR) Not Detected (NotDetected) 08/18/23 08:45 Coronavirus HKU1 (PCR) Not Detected (NotDetected) 08/18/23 08:45 Coronavirus 229E (PCR) Not Detected (NotDetected) 08/18/23 08:45 SARS-CoV-2 (PCR) Not Detected (NotDetected) 08/18/23 08:45 Coronavirus NL63 (PCR) Not Detected (NotDetected) 08/18/23 08:45 Human Metapneumovir PCR Not Detected (NotDetected) 08/18/23 08:45 Influenza Type A (PCR) Not Detected (NotDetected) 08/18/23 08:45 Influenza Type B (PCR) Not Detected (NotDetected) 08/18/23 08:45 M. pneumoniae (PCR) Not Detected (NotDetected) 08/18/23 08:45 Parainfluenza 1 (PCR) Not Detected (NotDetected) 08/18/23 08:45 Parainfluenza 2 (PCR) Not Detected (NotDetected) 08/18/23 08:45 Parainfluenza 3 (PCR) Not Detected (NotDetected) 08/18/23 08:45 Parainfluenza 4 (PCR) Not Detected (NotDetected) 08/18/23 08:45 RSV (PCR) Not Detected (NotDetected) 08/18/23 08:45 Entero/Rhino (PCR) Not Detected (NotDetected) 08/18/23 08:45 Blood Type O Positive 08/21/23 02:10 Antibody Screen NEGATIVE 08/21/23 02:10 Impressions KUB X-Ray 08/20/23 07:00 KUB HISTORY: Diarrhea COMPARISON: Abdomen and pelvis CT 08/04/2022.. FINDINGS: The bowel gas pattern is unremarkable. There are no dilated loops of small bowel to suggest an obstruction. No renal calculi. No ureteral calculi. Calcifications in the deep pelvis likely represent phleboliths. Cardiomegaly and bilateral pleural effusions are partially visualized. There are poststernotomy changes and an aortic valve prosthesis. Mild fecal retention is noted. Old, healed left pubic ring fractures. No pneumoperitoneum or pneumatosis. There is a surgical clip within the right side of the abdomen. Postoperative changes within the right hip. IMPRESSION: 1. Nonobstructive bowel gas pattern. 2. Mild fecal retention. 3. Cardiomegaly and bilateral pleural fusions are partially visualized. ACT 112: Negative or not required by law. Electronically signed by: Ludwig Braga M.D. 08/20/2023 10:20 AM Thoracentesis/Paracentesis US 08/29/23 10:59 ULTRASOUND-GUIDED THORACENTESIS CLINICAL HISTORY: Left pleural effusion PROCEDURE: Procedure and risks were explained. Informed consent was obtained. A final timeout was completed. The left thorax was prepped and draped in sterile fashion. 1% buffered lidocaine was utilized for skin anesthesia. Utilizing ultrasound guidance, a 5 Sinhala safety centesis catheter was advanced into the left pleural effusion. Ultrasound image was obtained. A total of 850 mL of yellow pleural fluid was removed and sent to the lab. The catheter was removed and Band-Aid applied. The patient tolerated the procedure well. Vital signs will be monitored postprocedure. Postprocedure chest x-ray will be obtained. IMPRESSION: Ultrasound-guided thoracentesis as above. Performed, dictated, and signed by Rayo Noriega PA-C; to be co-signed by Dr. Ludwig Braga. Electronically signed by: Ludwig Braga M.D. 08/29/2023 3:48 PM Chest X-Ray 08/29/23 15:37 XR chest 1V not portable CLINICAL HISTORY: s/p left thoracentesis COMPARISON STUDY: Chest radiograph August 27, 2023. FINDINGS: There is no pneumothorax following left thoracentesis. The left pleural effusion has significantly decreased in size. Right pleural effusion with right basilar opacity is again noted. Cardiomegaly with mild pulmonary vascular congestion. IMPRESSION: 1. No pneumothorax following left thoracentesis. Significant decrease in size of the left pleural effusion. 2. Small to moderate right pleural effusion with right basilar opacity. 3. Cardiomegaly with pulmonary vascular congestion. ACT 112: Negative or not required by law. Electronically signed by: Conrado Skaggs M.D. 08/29/2023 4:07 PM Ordered Studies 08/29/23 10:59 IR thoracentesis wo tube US Routine Hospital Course (1) CHF exacerbation: Acute on chronic heart failure with preserved ejection fraction Valvular heart disease Bioprosthetic aortic valve Bilateral pleural effusion secondary to above --CXR:Cardiomegaly and mild pulmonary edema. Moderate bilateral pleural effusions are seen. --ECHO: A-fib RVR present during echo study. Left ventricle is hyperdynamic. EF greater than 70%. Right ventricle is normal in size and function. Mild to moderate mitral regurgitation. Moderate tricuspid regurgitation. Pulmonary artery systolic pressure is estimated to be 48 mmHg. Bioprosthetic arctic valve with normal prosthetic gradients and no significant prosthetic regurgitation. Large bilateral pleural effusions are present. --Mild troponin elevation: Demand ischemia secondary to volume overload, A-fib RVR --Saturating well on room air Repeat chest x-ray improved effusions --S/P left thoracentesis Received IV Lasix Given low BP, will continue Lasix 20 mg daily for now and uptitrate to 40 mg daily if BP supports Appreciate cardiology input Needs follow-up with cardiology on discharge Continue to hold lisinopril due to low BP and PENNIE Continue isosorbide, metoprolol with holding parameters Monitor I's and O's, daily weight, volume status Plan to be discharged to rehab facility today Right upper extremity hematoma--Resolved Secondary to IV heparin infiltration Mild hematuria--likely traumatic catheter--Resolved Aspirin held IV heparin discontinued Monitor H&H Clinically improved (2) Atrial fibrillation, new onset: -- Normal TSH Rate controlled Continue metoprolol Initially started on IV heparin for anticoagulation: Discontinued due to infiltration, likely poor candidate for long-term anticoagulation due to dem entia, fall risk, elderly Appreciate cardiology input Diarrhea Likely overflow diarrhea secondary to fecal retention --KUB:Nonobstructive bowel gas pattern. Mild fecal retention. Continue bowel regimen as needed Monitor (3) Pleural effusion: Due to CHF Management as above (4) Hypoxia: Weaned off of supplemental oxygen Monitor (5) Hypomagnesemia: Replace and monitor (6) Elevated troponin I level: As above (7) CKD (chronic kidney disease), stage III: PENNIE on CKD stage III Monitor renal function Avoid nephrotoxic agents as able Cr 1.8 hold lisinopril (8) S/P AVR: h/o bioprosthetic AoV replacement in 2007. (9) Anemia: Anemia of chronic disease Hemoglobin at baseline Monitor CBC DVT Px: Heparin SQ SCDs CODE STATUS DNI/DNR Disposition SNF Total Time Total Time Spent Total Time Spent (In Minutes): 59 minutes Discharge Plan Discharge Items Patient Disposition: Transfer [facility] Fac Reason For Visit: ACUTE BILAT PLUERAL EFFUSIONS, POSS ACUTE HF EXACE Discharge Diagnosis: Acute on chronic heart failure with preserved ejection fraction Valvular heart disease Bioprosthetic aortic valve Bilateral pleural effusion Acute kidney injury on CKD III Activity: Per Instructions section Exercise/Sports: Gradually increase as tolerated Non-emergency contact: Primary Care Provider, Business Office Technology Instructor and Lawn Technician Call non-emergency contact if: you have any medication questions, your symptoms worsen, your pain is concerning for you and you have a fever Follow-up/Referrals: [employer] [Primary Care Provider] - Diet: Heart Healthy Addtl Attending Provider Instructions: Follow-up with your primary care physician in 1 week Follow-up with your sales specialist in 2-4 weeks Follow-up with your polygraph operator as needed -- Obtain blood test (basic metabolic panel) in 1 week and follow-up with your physician for further recommendations as advised. Seek immediate medical attention if your symptoms reoccur or worsen Please take all medications as instructed on discharge list below. Please call if you have any questions or problems. You can reach a [facility] hospitalist on duty at [facility] 24 hours a day by calling [phone] Call your Primary Care doctor if any of the following symptoms or problems start or get worse: * Shortness of breath or difficulty breathing * Wake up at night short of breath * Chest pain * Cough * Swelling of your hands, feet, or legs * More fatigued or tired with your normal activity * Palpitations - sudden fast heart beats WEIGHT * Weigh yourself every morning after using the bathroom. * Use the same scale. * Wear the same amount of clothing. * Write your weight down on a chart. * Call your Primary Care doctor if you gain more than 2-3 pounds in 1-2 days. MEDICATIONS * Use this discharge instruction sheet for medication instructions. * Take your medications at the time your doctor ordered. * Do not skip a dose of your medicines. * If you miss a dose of medicine, take it as soon as possible, but DO NOT DOUBLE A DOSE. * Read your medicine information when you get home. * Know all of the side effects of your medicine. If in doubt, ask your pharmacist * Call your Primary Care doctor's office if you have any side effects. * Be sure all of your doctors know what medicine and herbs you take (including cold, flu, and herbal medicine). Take the following with you to your follow-up doctor appointments: * Weight Chart * Medication List * List of questions Do not drink excessive alcohol, beer or wine. Pending Studies at Discharge: No Stand-Alone Forms: My [facility] Skilled Items Patient informed of condition?: Yes DNR: Yes Discharge Level of Care: Skilled Communicable Disease: No Discharge Prognosis: Stable Lines: None Urinary Catheter: No Medications and DC Order Prescriptions: Continued aspirin [Lyly Low Dose Aspirin] 81 mg Tablet,Delayed Release (Dr/Ec) 81 mg PO DAILY acetaminophen [Acetaminophen Extra Strength] 500 mg Tablet 500 mg PO Q4 MDD 3 GRAMS/24 HOURS PRN (Reason: Pain) ferrous sulfate 325 mg (65 mg iron) Tablet 325 mg PO TID sennosides 8.6 mg Tablet 8.6 mg PO DAILY fexofenadine 180 mg Tablet 180 mg PO DAILY alum-mag hydroxide-simeth [Antacid-Simethicone] 400-400-40 mg/5 mL Suspension 10 - 20 ml PO QID PRN (Reason: HEARTBURN/INDIGESTION/GAS) Rosemarie Protect(dimethicone-zinc) Cream 1 applic TOPICAL DAILY PRN (Reason: Skin Irritation) nitroglycerin [Nitrostat] 0.4 mg Tablet, Sublingual 0.4 mg sublingual UD PRN (Reason: chest pain) Qty: 25 2RF Rx Instructions: dissolve 1 tablet under tongue as needed , may repeat x 3 doses for chest pain atorvastatin 40 mg tablet 40 mg PO DAILY Qty: 30 5RF isosorbide mononitrate 30 mg Tablet Extended Release 24 Hr 30 mg PO QAM Qty: 30 0RF omeprazole 20 mg Capsule,Delayed Release(Dr/Ec) 20 mg PO DAILY Systane (PF) 0.4-0.3 % Dropperette 1 drp OPB BID amoxicillin 500 mg capsule 2,000 mg PO DAILY PRN (Reason: 1 hour prior to dental work) docosanol [Abreva] 10 % Cream 1 applic TOPICAL UD PRN (Reason: Cold Sores) Rx Instructions: may keep at bedside trolamine salicylate [Aspercreme] 10 % Cream 1 applic TOPICAL QID PRN (Reason: Pain) Rx Instructions: may keep at bedside for independent use Metamucil [place] Powder 1 tbsp PO DAILY Rx Instructions: mix into 6-8 ounces of fluid and drink metoprolol succinate 50 mg Tablet Extended Release 24 Hr 50 mg PO DAILY Qty: 30 0RF cyanocobalamin (vitamin B-12) 500 mcg Tablet 1,000 mcg PO QAM Qty: 60 1RF diphenhydramine HCl [Benadryl] 25 mg Capsule 25 mg PO HS PRN (Reason: allergies) cholecalciferol (vitamin D3) [Vitamin D3] 50 mcg (2,000 unit) Tablet 50 mcg PO DAILY Changed docusate sodium 100 mg Capsule 100 mg PO BID PRN (Reason: Constipation) Qty: 30 0RF furosemide 20 mg Tablet 20 mg PO DAILY Qty: 30 0RF Held lisinopril 30 mg tablet 30 mg PO DAILY Hold Instructions: Hold until follow-up with your primary care physician for further instructions Discharge Orders: Discharge Order (Routine); Ordered 08/31/23 Ordered By: Vincent Stewart Admission Data Admit Date/Time: 08/18/23 10:11 Attending Provider: Vincent Stewart Admit Provider: Roya Eisenberg Primary Care Provider: [employer] Other Providers: Roya Eisenberg; Vincent Stewart; Keyur Hussein
== END 2023-08-31 16:15 | disposition home or self-care (01) | DRG 291 ==
LOC: ED 08:29 → SUATTDRO 10:11 → EDINP 10:11 → 2S 12:01

== ENCOUNTER 2023-10-08 08:34 | Inpatient (IN) ==
--- NOTE | 2023-10-08 08:45 | Emergency Department Note ---
Impression & Plan Acute dyspnea ADMIT ED Provider Note HPI: History obtained from patient. The patient is a 88-year-old female with history of hypertension, atrial fibrillation, mild dementia, chronic diastolic heart failure with preserved ejection fraction, presents the emergency department with a chief complaint of shortness of breath. Patient states that her symptoms had been worsening over the night. On arrival here to the ED the patient does exhibit some mild tachypnea, she states that she does have dyspnea, denies any chest pain, patient is saturating at 89% on room air on my initial assessment. Patient denies any recent fever, denies any recent cough. ROS: - Per HPI Differential Diagnosis: Acute CHF exacerbation with dyspnea, COPD exacerbation, pneumonia, viral upper respiratory infection with dyspnea, pulmonary edema,, amongst other potential pathologies. *Outpatient medications and allergy history reviewed. PE: General: Alert HEENT: Normocephalic, trachea midline Eyes: Extraocular eye movement is intact, no scleral erythema Pulmonary: Diminished bilateral breath sounds without wheezing or crackles Cardio: Regular rate and irregular rhythm GI: Abdomen is soft to palpation : No suprapubic tenderness MSK: No evidence of trauma or malformation of the extremities, no edema Skin: No evidence of rash Neuro: Alert, no focal deficits Psychiatric: Cooperative INDEPENDENT INTERPRETATIONS: cafeteria monitor: (As interpreted by myself): - An order was placed for continuous cardiac monitoring - Patient was noted to be in atrial fibrillation with a rate of 88 EKG: (As interpreted by myself): Rate: 90 Rhythm: Atrial fibrillation Intervals: Within normal limits ST changes: No ST elevation Time: 0842 Chest x-ray: (As interpreted by myself): Pulmonary edema pattern with bilateral pleural effusions Interventions provided in ED: -IV Lasix Medical Decision Making: IV was established and lab work obtained, patient was placed on ekg monitor tech. Lab work shows no leukocytosis, hemoglobin is stable at 10.7, platelet count is normal, venous blood gas shows some acidosis with pH of 7.26 with pCO2 elevated at 69, CMP does not show any critical findings, BNP is elevated at 406, troponin is mildly elevated at 33.4. Urinalysis does not show any convincing evidence of infection, there is some contamination, will send for culture. Chest x-ray shows evidence of bilateral pleural effusions and a pattern of pulmonary edema per my interpretation. Patient was ordered a dose of IV Lasix here in the ED, she remained stable on 2 L nasal cannula oxygen on my reassessment. Given the patient's dyspnea, evidence of fluid overload on chest x-ray, elevated BNP, and hypoxia, I do feel she would benefit from admission for diuresis and to see if we can lower her oxygen requirement. Patient is in agreement to this plan. Case was discussed with the on-call hospitalist service for [facility], case was discussed with Patricia Daniel PA-C, and the pt was placed for admission in stable condition to the service of Dr. Wakefield. Consultants/Discussions held with other healthcare providers: -Hospitalist service, Patricia Daniel PA-C Disposition discussion held by myself with: -Patient * CRITICAL CARE TIME: ( 34 ) minutes -Management of patient with acute hypoxia of 89% on room air requiring supplemental oxygen for correction, time spent at the bedside, interpretation of multiple diagnostic studies including EKG and chest x-ray, discussion with other healthcare providers and arrangement of admission Diagnosis: 1. Hypoxia, acute 2. Pulmonary edema, acute 3. Bilateral pleural effusions, acute 4. Elevated BNP 5. Anemia, chronic 6. Elevated high-sensitivity troponin level Disposition: Admission Carlos Oswald DO Emergency Medicine Past Med/Surg History Medical History Dementia Chronic diastolic heart failure Dyslipidemia NSTEMI (non-ST elevated myocardial infarction) 09/2019 Chronic kidney disease, stage 3 (moderate) Gout Osteoarthritis Diverticular disease Cervical cancer 1997--sx History of colon polyps Aortic valve stenosis Schatzki's ring History of esophageal dilatation History of falling Polymyalgia rheumatica Hypertension Gout Status post closed fracture of right femur Surgical History History of vein stripping x2 H/O total hysterectomy History of colonoscopy H/O cataract extraction History of cardiac cath 08/20/2007 History of breast biopsy History of cholecystectomy History of esophagogastroduodenoscopy (EGD) [place] [facility] [place] History Mother Rectal cancer Social History Smoking Status: Former smoker Tobacco Type: Cigarettes Second Hand Exposure: No; Do You Dip or Chew Tobacco: No; Hx Alcohol Use: Yes Alcohol type: beer Hx Substance Use: No Preferred Language: Vietnamese Communication Ability: Effective Switch Maker Required: No Beliefs That Will Affect Care: None Current Living Situation: Alone Current Living Situation Comment: [facility] [place] current occupational status: retired Feels Safe at Home: Yes Assistive Devices: Walker Allergies Allergies Allergy/AdvReac Type Severity Reaction Status Date / Time allopurinol Allergy Unknown ON HOPI Verified 08/18/23 11:23 [facility] MED LIST Cephalosporins Allergy Unknown ON HOPI Verified 08/18/23 11:23 [facility] MED LIST gramicidin D [From Neocidin] Allergy Unknown Redness of Verified 08/18/23 11:23 Skin neomycin [From Neocidin] Allergy Unknown Redness of Verified 08/18/23 11:23 Skin polymyxin B [From Neocidin] Allergy Unknown Redness of Verified 08/18/23 11:23 Skin chocolate AdvReac Unknown Verified 08/18/23 11:28 Home Meds Home Medications Medication Instructions Recorded Confirmed aspirin 81 mg tablet,delayed 81 mg PO QAM 06/11/18 10/08/23 release (Lyly Low Dose Aspirin) acetaminophen 500 mg tablet 500 mg PO Q4 PRN Pain 07/29/18 10/08/23 (Acetaminophen Extra Strength) ferrous sulfate 325 mg (65 mg 325 mg PO TID 07/29/18 10/08/23 iron) tablet aluminum-mag hydroxide-simethicone 10 - 20 ml PO QID PRN 09/27/19 10/08/23 400 mg-400 mg-40 mg/5 mL oral susp HEARTBURN/INDIGESTION/GAS (Antacid-Simethicone) dimethicone-zinc oxide topical 1 applic topical DAILY PRN Skin 09/27/19 10/08/23 cream (Rosemarie Protect Irritation (dimethicone-zinc oxide) topical cream) fexofenadine 180 mg tablet 180 mg PO DAILY 09/27/19 10/08/23 sennosides 8.6 mg tablet 8.6 mg PO QAM Constipation 09/27/19 10/08/23 amoxicillin 500 mg capsule 2,000 mg PO DAILY PRN 1 hour prior 08/04/22 10/08/23 to dental work docosanol 10 % topical cream 1 applic topical UD PRN Cold Sores 08/04/22 10/08/23 (Abreva) omeprazole 20 mg capsule,delayed 20 mg PO QAM 08/04/22 10/08/23 release peg 400-propylene glycol (PF) 0.4 1 drp OPB BID 08/04/22 10/08/23 %-0.3 % eye drops in a dropperette (Systane (PF)) psyllium seed (sugar) oral powder 1 tbsp PO DAILY 08/04/22 10/08/23 (Metamucil [place] oral powder) trolamine salicylate 10 % topical 1 applic topical QID PRN Pain 08/04/22 10/08/23 cream (Aspercreme) cholecalciferol (vitamin D3) 50 50 mcg PO QAM 08/18/23 10/08/23 mcg (2,000 unit) tablet (Vitamin D3) diphenhydramine HCl 25 mg capsule 25 mg PO HS PRN allergies 08/18/23 10/08/23 (Benadryl) atorvastatin 40 mg tablet 40 mg PO PM 10/08/23 10/08/23 furosemide 20 mg tablet 20 mg PO . M,W,F 10/08/23 10/08/23 metoprolol succinate 50 mg 50 mg PO QAM 10/08/23 10/08/23 tablet,extended release 24 hr nitroglycerin 0.4 mg sublingual 0.4 mg sublingual DAILY PRN Chest 10/08/23 10/08/23 tablet Pain Previous Rx's Medication Instructions Recorded nitroglycerin 0.4 mg sublingual 0.4 mg sublingual UD PRN chest 10/01/19 tablet (Nitrostat) pain #25 tabs isosorbide mononitrate 30 mg 30 mg PO QAM #30 tabs 10/27/19 tablet,extended release 24 hr cyanocobalamin (vitamin B-12) 500 1,000 mcg (2 x 500 mcg) PO QAM #60 08/09/22 mcg tablet tabs docusate sodium 100 mg capsule 100 mg PO BID PRN Constipation #30 08/31/23 caps Results & Data (ED) Vital Signs Vital Signs - 24 hr 10/08/23 08:42 10/08/23 08:46 10/08/23 08:47 Temperature 37.6 C H Temperature Source Oral Pulse Rate 92 H 86 Pulse Rate from SpO2 Sensor Pulse Rhythm Regular Pulse Strength Normal Respiratory Rate 23 20 Respiratory Effort / Characteristics Labored Respiratory Depth Normal Respiratory Pattern Regular Blood Pressure 139/92 139/92 Blood Pressure Mean 107 102 Pulse Oximetry 91 Oxygen Delivery Method Room Air Oxygen Flow Rate Sepsis Recent Fever Within 48 Hours No Sepsis New/Unexplained Change in Mental Status N/A Sepsis Action Taken by Nursing No Action Required 10/08/23 08:47 10/08/23 08:54 10/08/23 08:59 Temperature Temperature Source Pulse Rate 94 H 98 H Pulse Rate from SpO2 Sensor 104 H 85 Pulse Rhythm Pulse Strength Respiratory Rate 20 18 Respiratory Effort / Characteristics Labored Respiratory Depth Normal Respiratory Pattern Regular Blood Pressure Blood Pressure Mean Pulse Oximetry 89 L 93 Oxygen Delivery Method Nasal Cannula Oxygen Flow Rate 2 Sepsis Recent Fever Within 48 Hours Sepsis New/Unexplained Change in Mental Status Sepsis Action Taken by Nursing 10/08/23 08:59 10/08/23 09:00 10/08/23 09:00 Temperature Temperature Source Pulse Rate 86 Pulse Rate from SpO2 Sensor 86 Pulse Rhythm Pulse Strength Respiratory Rate 25 H Respiratory Effort / Characteristics Respiratory Depth Respiratory Pattern Blood Pressure 167/109 H 155/92 H Blood Pressure Mean 125 107 Pulse Oximetry 98 Oxygen Delivery Method Oxygen Flow Rate Sepsis Recent Fever Within 48 Hours Sepsis New/Unexplained Change in Mental Status Sepsis Action Taken by Nursing 10/08/23 09:30 10/08/23 09:30 10/08/23 09:42 Temperature Temperature Source Pulse Rate 80 84 Pulse Rate from SpO2 Sensor Pulse Rhythm Regular Pulse Strength Respiratory Rate 21 20 Respiratory Effort / Characteristics Respiratory Depth Respiratory Pattern Blood Pressure 131/73 Blood Pressure Mean 106 Pulse Oximetry 89 L 92 Oxygen Delivery Method Nasal Cannula Oxygen Flow Rate 2 Sepsis Recent Fever Within 48 Hours Sepsis New/Unexplained Change in Mental Status Sepsis Action Taken by Nursing Laboratory Data 10/08/23 08:43 10/08/23 08:43 Lab Results 10/08/23 10/08/23 10/08/23 Range/Units 08:43 08:48 09:19 WBC 5.65 (4.8-10.8) K/ul RBC 3.30 L (4.20-5.40) M/uL Hgb 10.7 L (12.0-16.0) g/dl Hct 33.6 L (37.0-47.0) % MCV 101.8 H (80.0-100.0) fL MCH 32.4 (25.0-34.0) pg MCHC 31.8 L (32.0-36.0) g/dL RDW Std Deviation 49.3 H (36.4-46.3) fL RDW Coeff of Jimmie 13.2 (11.5-14.5) % Plt Count 162 (130-400) K/uL MPV 10.6 (9.4-12.4) fL Immature Gran % (Auto) 0.4 % Neut % (Auto) 73.6 % Lymph % (Auto) 11.9 % Wilkes % (Auto) 8.5 % Eos % (Auto) 5.1 % Baso % (Auto) 0.5 % Neut # (Auto) 4.16 (1.40-6.50) K/uL Lymph # (Auto) 0.67 L (1.20-3.40) K/uL Wilkes # (Auto) 0.48 (0.11-0.59) K/uL Eos # (Auto) 0.29 (0.00-0.50) K/uL Baso # (Auto) 0.03 (0.00-0.20) K/uL Immature Gran # (Auto) 0.02 (0.01-0.20) K/uL PT 12.3 H (9.0-12.0) Seconds INR 1.1 (0.9-1.1) VBG pH 7.26 L (7.36-7.41) VBG pCO2 69 H (38-50) mmHg VBG pO2 24 mmHg VBG HCO3 31 mmol/L VBG O2 Saturation < 60.0 % VBG Base Excess 1.9 mEq/L Sodium 136 (136-145) mmol/L Potassium 4.3 (3.5-5.1) mmol/L Chloride 103 (98-107) mmol/L Carbon Dioxide 31 (21-32) mmol/L Anion Gap 2 L (3-11) BUN 18 (6-23) mg/dl Creatinine 0.97 (0.6-1.2) mg/dl Est Cr Clr Drug Dosing 34.8 ml/min Est GFR ( Amer) 60.9 ml/min Est GFR (Non-Af Amer) 52.5 ml/min BUN/Creatinine Ratio 18.6 (10-20) Glucose 104 H (70-99(Fasting)) mg/dl Calcium 9.2 (8.6-10.3) mg/dl Total Bilirubin 1.4 H (0.2-1.0) mg/dl AST 19 (13-39) U/L ALT 19 (7-52) U/L Alkaline Phosphatase 65 (34-104) U/L Troponin I High Sens 34.4 H (0-14) pg/ml B-Natriuretic Peptide 406 H (0-100) pg/ml Total Protein 6.1 (6.0-8.3) gm/dl Albumin 3.7 (3.4-5.0) gm/dl Globulin 2.4 L (2.5-4.0) gm/dl Albumin/Globulin Ratio 1.5 (0.9-2) Adenovirus (PCR) Not Detected (NotDetected) B. pertussis DNA (PCR) Not Detected (NotDetected) B.parapertussis DNA PCR Not Detected (NotDetected) C. pneumoniae DNA (PCR) Not Detected (NotDetected) Coronavirus OC43 (PCR) Not Detected (NotDetected) Coronavirus HKU1 (PCR) Not Detected (NotDetected) Coronavirus 229E (PCR) Not Detected (NotDetected) SARS-CoV-2 (PCR) Not Detected (NotDetected) Coronavirus NL63 (PCR) Not Detected (NotDetected) Human Metapneumovir PCR Not Detected (NotDetected) Influenza Type A (PCR) Not Detected (NotDetected) Influenza Type B (PCR) Not Detected (NotDetected) M. pneumoniae (PCR) Not Detected (NotDetected) Parainfluenza 1 (PCR) Not Detected (NotDetected) Parainfluenza 2 (PCR) Not Detected (NotDetected) Parainfluenza 3 (PCR) Not Detected (NotDetected) Parainfluenza 4 (PCR) Not Detected (NotDetected) RSV (PCR) Not Detected (NotDetected) Entero/Rhino (PCR) Not Detected (NotDetected) 10/08/23 Range/Units 10:30 WBC (4.8-10.8) K/ul RBC (4.20-5.40) M/uL Hgb (12.0-16.0) g/dl Hct (37.0-47.0) % MCV (80.0-100.0) fL MCH (25.0-34.0) pg MCHC (32.0-36.0) g/dL RDW Std Deviation (36.4-46.3) fL RDW Coeff of Jimmie (11.5-14.5) % Plt Count (130-400) K/uL MPV (9.4-12.4) fL Immature Gran % (Auto) % Neut % (Auto) % Lymph % (Auto) % Wilkes % (Auto) % Eos % (Auto) % Baso % (Auto) % Neut # (Auto) (1.40-6.50) K/uL Lymph # (Auto) (1.20-3.40) K/uL Wilkes # (Auto) (0.11-0.59) K/uL Eos # (Auto) (0.00-0.50) K/uL Baso # (Auto) (0.00-0.20) K/uL Immature Gran # (Auto) (0.01-0.20) K/uL PT (9.0-12.0) Seconds INR (0.9-1.1) VBG pH (7.36-7.41) VBG pCO2 (38-50) mmHg VBG pO2 mmHg VBG HCO3 mmol/L VBG O2 Saturation % VBG Base Excess mEq/L Sodium (136-145) mmol/L Potassium (3.5-5.1) mmol/L Chloride (98-107) mmol/L Carbon Dioxide (21-32) mmol/L Anion Gap (3-11) BUN (6-23) mg/dl Creatinine (0.6-1.2) mg/dl Est Cr Clr Drug Dosing ml/min Est GFR ( Amer) ml/min Est GFR (Non-Af Amer) ml/min BUN/Creatinine Ratio (10-20) Glucose (70-99(Fasting)) mg/dl Calcium (8.6-10.3) mg/dl Total Bilirubin (0.2-1.0) mg/dl AST (13-39) U/L ALT (7-52) U/L Alkaline Phosphatase (34-104) U/L Troponin I High Sens 33.4 H (0-14) pg/ml B-Natriuretic Peptide (0-100) pg/ml Total Protein (6.0-8.3) gm/dl Albumin (3.4-5.0) gm/dl Globulin (2.5-4.0) gm/dl Albumin/Globulin Ratio (0.9-2) Adenovirus (PCR) (NotDetected) B. pertussis DNA (PCR) (NotDetected) B.parapertussis DNA PCR (NotDetected) C. pneumoniae DNA (PCR) (NotDetected) Coronavirus OC43 (PCR) (NotDetected) Coronavirus HKU1 (PCR) (NotDetected) Coronavirus 229E (PCR) (NotDetected) SARS-CoV-2 (PCR) (NotDetected) Coronavirus NL63 (PCR) (NotDetected) Human Metapneumovir PCR (NotDetected) Influenza Type A (PCR) (NotDetected) Influenza Type B (PCR) (NotDetected) M. pneumoniae (PCR) (NotDetected) Parainfluenza 1 (PCR) (NotDetected) Parainfluenza 2 (PCR) (NotDetected) Parainfluenza 3 (PCR) (NotDetected) Parainfluenza 4 (PCR) (NotDetected) RSV (PCR) (NotDetected) Entero/Rhino (PCR) (NotDetected) Administered Medications Discontinued Medications Furosemide (Furosemide 40 Mg/4 Ml Vial) 40 mg IV ONE ONE Stop: 10/08/23 10:15 Last Admin: 10/08/23 10:25 Dose: 40 mg Documented By: SOPHIA Ioversol (Optiray 320 125ml) 118 ml IV ONCE ONE Stop: 10/08/23 12:17 Last Admin: 10/08/23 12:17 Dose: 118 ml Documented By: GILA Imaging Data Radiologist's Impression: Chest X-Ray 10/08/23 08:43 XR chest 1V portable HISTORY: Dyspnea COMPARISON: Chest 08/29/2023. FINDINGS: No pneumothorax. Small right and moderate left pleural effusions have increased in size. The heart remains enlarged. There is progressive interstitial/vascular thickening consistent with mild pulmonary edema. Patchy bibasilar densities are noted. There are poststernotomy changes. Calcifications within the aortic knob. No acute fractures. IMPRESSION: 1. Interval progression of the mild pulmonary edema and bilateral pleural effusions. 2. Patchy bibasilar densities are nonspecific but favor atelectasis from the pleural effusions ACT 112: Negative or not required by law. Electronically signed by: Ludwig Braga M.D. 10/08/2023 9:52 AM Discharge Plan Visit Data Chief Complaint: Shortness of Breath/Dyspnea ED Provider: Carlos Oswald Discharge Problem: Acute dyspnea Patient Disposition: Admitted As Inpatient Discharge Instructions Interventions: ED Discharge Assessment Last Done: 10/08/23 11:04
--- OUTSIDE RECORDS SUMMARY | 2023-10-08 09:13 | External Medical Summary ---
Author Name Unknown Address Unknown Organization [id number]:[facility] [address] [place] [id number] Laboratory Report Ordering Provider Test Date Status BETTY CALDERON 09/20/2023 15:40:18 Final Observation Date Value Abnormality Reference (Units ) Status WBC, Total 09/20/2023 15:40:18 5.84 4.00-10.8 0 (K/uL) Final RBC 09/20/2023 15:40:18 3.57 3.85-5.15 (M/uL) Final Hemoglobin 09/20/2023 15:40:18 11.7 Below low normal 12 .0-15.3 (g/dL) Final HCT 09/20/2023 15:40:18 36.5 36.0-45.2 (%) Final MCV 09/20/2023 15:40:18 102.2 81.5-97.5 (fL) Final MCH 09/20/2023 15:40:18 32.8 27.0-34.0 (pg) Final MCHC 09/20/2023 15:40:18 32.1 32.0-36.0 (g/dL) Final RDW 09/20/2023 15:40:18 13.1 11.5-15.5 (%) Final Platelets 09/20/2023 15:40:18 190 140-400 (K /uL) Final MPV 09/20/2023 15:40:18 10.5 6.6-11.1 ( fL) Final Performing Location [facility] [address] [place] [id number]
--- OUTSIDE RECORDS SUMMARY | 2023-10-08 09:13 | External Medical Summary | Summary of Care ---
Author Name Unknown Organization [facility] Address [address] [facility] [place] [address] Phone [phone] Care Team Providers Care Pest Control Operator Name Role Phone Brayan Gayle DO Primary Care Provider + [phone] Reason for Visit * Reason Comments Hospital Follow-Up Encounter Details Date Type Department Care Team (Late st Contact Info) Description 09/20/2023 3:00 PM EST Office Visit Cardiology, [facility] [address] [place] [address] Alexandra Ortiz CRNP [address] [place] [address] Chronic heart failure with preserved ejection fraction (HCC)*; Persistent atrial fibrillation (HCC); Coronary artery disease involving wilton coronary artery of wilton heart without angina pectoris; Status post insertion of drug eluting coronary artery stent; S/P aortic valve replacement; HTN, goal below 140/90; Dyslipidemia, goal LDL below 70 Allergies Active Allergy Reactions Criticality Noted Date Comments Allopurinol Rash 12/23/2009 Cephalosporins 03/10/2019 Unknown Uykilxpq-Ynwxmjpzg-Olgwztzcsz 2018 Swelling, redness Omeprazole Rash High 07/30/2017 documented as of this encounter (statuses as of 09/20/2023) Medications Medication Sig Dispensed Refills Start Date End Date Status ASPIRIN 81 MG PO TABS Take 1 Tablet by mouth in the morning. 0 Active amoxicillin (AMOXIL) 500 MG Capsule 5 05/01/2016 Active acetaminophen (TYLENOL) 500 MG Tablet Take 1 Tablet by mouth every 6 hours as needed for Pain. 0 Active AUG BETAMETHASONE DIPROPIONATE (DIPROLENE AF) 0.05 % creamIndications:D ermatitis Apply topically to affected area 2 times [...] SUBL 1 Tablet. As needed 0 10/01/2019 Active atorvaSTATin (LIPITOR) 40 MG Tablet Take 1 Tablet by mouth at bedtime. 0 10/01/2019 Active Docosanol 10 % External Cream Apply topically to affected area. 0 Active Psyllium 43 % Oral Powder Take by mouth. 0 Active Metoprolol Succinate ER 50 MG Oral Tablet Extended Release 24 Hour (toPROL XL) 1 daily 0 12/19/2022 Active Isosorbide Mononitrate ER 30 MG Oral Tablet Extended Release 24 Hour (Imdur) 0 07/02/2023 Active Furosemide 20 MG Oral Tablet (Lasix) Take 1 Tablet by mouth once a day on Sunday, Sunday, and Sunday only. In the morning. 45 Tablet 3 09/21/2023 Active furosemide (LASIX) 20 MG Tablet Take 1 Tab by mouth daily. In the morning. 90 Tab 3 11/29/2017 02/29/20 24 Discontinued Lisinopril 30 MG Oral Tablet 1 daily 0 12/19/2022 09/20/19 24 Discontinued documented as of this encounter (statuses as of 09/20/2023) Active Problems Problem Noted Date Diagnosed Date Primary osteoarthritis of left knee 07/04/2023 Coronary artery disease invo lving wilton coronary artery of wilton heart without angina pectoris 03/23/2020 Status post [...] as of this encounter (statuses as of 09/20/2023) Resolved Problems Problem Noted Date Diagnosed Date Resolved Date Hyponatremia 03/04/2014 12/24/2015 Injury of leg, left, superficial 11/30/2011 08/19/2012 Obesity, Class II, BMI 35-39 .9, isolated (see actual BMI) 01/03/2010 08/19/2012 Overview: Per Obesity Protocol, #19 Dyslipidemia, goal to be determined 07/01/2009 10/10/2012 Overview: Per Lipid Taxonomy. 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 current use of ant icoagulant therapy 10/10/2007 [...] as of this encounter (statuses as of 09/20/2023) Immunizations Name Administration Dates Next Due COVID-19 mRNA, LNP-s, No Pre serve, 2-Dose Series (Moderna) 06/10/2021,09/13/2020,08/16/2020 Pneumococcal Conjugate Vacc, 13 Valent (Prevnar) 05/21/2015 Pneumococcal Polysaccharide PPV23 (Pneumovax) 12/09/2008,06/10/2002 Season Influenza, Quad, PF, Adjuvanted, 65+ Yrs, IM (FLUAD) 05/14/2023 Seasonal Influenza Virus Vac cine, Unspecified Formulation 04/26/2018,05/08/2017,04/25/2016,05/21,05/14/2014,04/14/2013,05/09/2012 ,05/11/2011,04/28/2010,04/28/2009,04/22,05/05/2003,06/03/2002, 1,06/21/2000,05/04/1999,05/28/1998 Seasonal Influenza, PF, 6 M & above, IM , (FluLaval or Fluzone) 04/26/2018,05/08/2017 Seasonal Influenza, Quadriva lent Hd, 65+ Yrs 05/04/2021 Seasonal Influenza, Quadriva lent, No Preserve, IM 04/25/2016,05/21/2015 Seasonal Influenza, Split, I IV3, With Preserve, Inj 05/14/2014,04/14/2013,05/09/2012,05/11,04/28/2010,04/28/2009,05/05/2008 ,05/05/2003,06/03/2002,06/06/2001,05/25,05/04/1999 TD - Tetanus/Diptheria (ADULT) 11/18/2011 TD, Preservative Free 02/03/2010 Varicella Zoster Vaccine (Adult) 09/24/2008 documented as of this encounter Social History Tobacco Use Types Packs/Day Years Used Date Smoking Tobacco: Former Cigarettes 1 35 0 02/18/1957 - 02/19/1992 Smokeless Tobacco: Never Tobacco Cessation:Counseling Given: [...] Sign Reading Time Taken Comments Blood Pressure 120/80 09/20/2023 3:03 PM EST Pulse 86 09/20/2023 3:03 PM EST Temperature - - Respiratory Rate - - Oxygen Saturation - - Inhaled Oxygen Concentration - - Weight 62.6 kg (138 lb) 09/20/2023 3:03 PM EST Height - - Body Mass Index 21.29 03/10/2019 11:58 AM EDT documented in this encounter Progress Notes * Alexandra Ortiz CRNP - 09/20/2023 3:00 PM EST Images from the original note were not included. Cardiology Outpatient Visit 09/20/2023 Primary Pilot Submersible: Dr. Lynne Past medical history: Aortic valve stenosis status post bioprosthetic AVR (21 mm vega Rdz pericardial valve), 10/03/2007 Coronary artery disease/NSTEMI, cardiac catheterization 10/24/2019 with findings of a 99% thrombotic occlusion of the proximal LAD, subtotal chronic ostial occlusion of RCA with distal right coronary artery filling retrograde from the left to right collaterals, s/p successful PCI/SOULEYMANE to the proximal to mid LAD. Persistent atrial fibrillation, initially diagnosed, 08/18/2023 at [facility]. Anticoagulation deferred due to upper extremity hematoma while admitted. Hypertension CKD stage 3 Dyslipidemia Polymyalgia rheumatica with chronic anemia Dementia HPI 88-year-old female presenting to the cardiology office today in follow-up after recent hospital admission. She is a resident of [facility]. Patient was admitted from 08/18/2023 to 08/31/2023 secondary to new onset AFib with RVR as well as acute on chronic heart failure. Echocardiogram that admission showed hyperdynamic LV systolic function of greater than 70% with [id number]-[id number] MR and moderate TR. Pulmonary pressures were mildly elevated. Bioprosthetic aortic valve gradients were normal. She did have large bilateral pleural effusions. Patient was diuresed with IV Lasix. And was also treated with a right-sided thoracentesis. In regards to her atrial fibrillation patient was placed on IV heparin however developed an upper extremity hematoma and anticoagulation was discontinued. Cardiac medications at discharge: Aspirin 81 mg daily Atorvastatin 40 mg daily Imdur 30 mg daily Metoprolol 50 mg daily Furosemide 20 mg daily Today the patient presents with her sister. She is somewhat of a poor historian due to underlying dementia however she notes that she is feeling "great". No chest pain or shortness of breath. Denies palpitations lightheadedness or dizziness. Ambulates with a wheeled walker. No orthopnea or PND. No lower extremity edema. Wears compression socks. Takes Lasix every Sunday. No fever,chills, cough, hematochezia, melena, or hemoptysis. Patient is compliant with all medications, and offers no side effects. EKG showing atrial fibrillation, 85 beats per minute. Patient is asymptomatic with her atrial fibrillation. Current Outpatient Medications Medication Sig Dispense Refill ASPIRIN 81 MG PO TABS Take 1 Tablet by mouth in the morning. amoxicillin (AMOXIL) 500 MG Capsule 5 acetaminophen (TYLENOL) 500 MG Tablet Take 1 Tablet by mouth every 6 hours as needed for Pain. AUG BETAMETHASONE DIPROPIONATE (DIPROLENE AF) 0.05 % cream Apply topically to affected area 2 timesa day. To affected area. Back and buttocks 50 g 1 Cholecalciferol 1000 units TBDP Take 1,000 Units by mouth daily. ferrous sulfate (FEOSOL) 325 (65 FE) MG Tablet Take 1 Tablet by mouth in the morning and 1 Tablet at noon and 1 Tablet before bedtime. Bisacodyl 10 MG Rectal Suppository Administer 1 Suppository into the rectum. Daily as needed fexofenadine (CHANDRIKA) 180 MG Tablet Take 1 Tablet by mouth in the morning. hydrocortisone 1 % cream Apply topically to affected area. Apply to affected area as needed milk of magnesia (MOM) 400 MG/5ML suspension Take by mouth daily as needed for Constipation. 30 ml daily as needed Sennosides (SENNA) 8.6 MG Tablet Take 1 Tablet by mouth. Daily if needed Ca Carbonate-Mag Hydroxide 550-110 MG Oral Tablet Chewable Take by mouth. omeprazole (PRILOSEC) 20 MG CPDR Take 1 Capsule by mouth in the morning. nitroglycerin (NITROSTAT) 0.4 MG SUBL 1 Tablet. As needed atorvaSTATin (LIPITOR) 40 MG Tablet Take 1 Tablet by mouth at bedtime. Docosanol 10 % External Cream Apply topically to affected area. Psyllium 43 % Oral Powder Take by mouth. Metoprolol Succinate ER 50 MG Oral Tablet Extended Release 24 Hour (toPROL XL) 1 daily Isosorbide Mononitrate ER 30 MG Oral Tablet Extended Release 24 Hour (Imdur) [START ON 09/21/2023] Furosemide 20 MG Oral Tablet (Lasix) Take 1 Tablet by mouth once a day on Sunday, Sunday, and Sunday only. In the morning. 45 Tablet 3 No current facility-administered medications for this visit. Past Medical History: Diagnosis Date Aortic valve stenosis 1999 Benign neoplasm of colon 05/21/2013 path shows adenomatous polyps Carcinoma in situ of cervix uteri [facility] 1997 CHOLELITHIASIS NOS - surgery 05/03/2000 Diverticulosis [...] breast 06/10/09 stable calcifcations, benign, [facility] Supraventricular aortic stenosis Past Surgical History: Procedure Laterality Date BIOPSY OF BREAST, OPEN 1977 CARD CATH, ANGIO, EP STUDY EDU 08/20/07 CATARACT SURGERY,COMPLEX 10/2011 COLONOSCOPY THRU STOMA, W/BIOPSY 06/12/96 colon polyp, diverticulosis COLONOSCOPY THRU STOMA, W/BIOPSY 09/19/01 Dr Steen - hemorrhoids - repeat in 5 yrs COLONOSCOPY, DIAGNOSTIC (RECTUM) 05/21/2013 path shows adenomatous polyps COLONOSCOPY, DIAGNOSTIC (RECTUM) 07/01/2015 hyperplastic polyp/COLONOSCOPY FLEXIBLE PROXIMAL DIAGNOSTIC performed by Elsa Caraballo DO at ENDOSCOPY [facility] EGD, FLEXIBLE, DIAGNOSTIC 07/01/2015 HH, otherwise normal/ESOPHAGOGASTRODUODENOSCOPY (EGD), FLEXIBLE, TRANSORAL, DIAGNOSTIC performed byElsa Caraballo DO at ENDOSCOPY [facility] EGD, FLEXIBLE, DIAGNOSTIC 07/06/2017 Schatzki ring/[facility] EGD, FLEXIBLE, DIAGNOSTIC 08/01/2018 hiatal hernia/[facility] LIGATE/DIVID & STRIP GSV & LSV 1956 right LIGATE/DIVID & STRIP GSV & LSV [address] Abdalla REPLACEMENT AORTIC VALVE, BYPASS WITH PROSTHETIC VALVE 10/03/07 REPLACEMENT AORTIC VALVE performed [place] VONNIE MARR [place] [facility] TOTAL HYSTERECTOMY Social History Tobacco Use Smoking status: Former Current packs/day: 0.00 Average packs/day: 1 pack/day for 35.0 years (35.0 ttl pk-yrs) Types: Cigarettes Start date: 02/18/1957 Quit date: 02/19/1992 Years since quittin.6 Smokeless tobacco: Never Tobacco comments: quit 1992 Substance Use Topics Alcohol use: No Comment: history of alcohol use. None for the past twenty years. Drug use: No Review of patient's allergies indicates: Allergen Reactions Prilosec [Omeprazole] Rash Allopurinol Rash Cephalosporins Unknown Vcemmwsg-Kqzimwpuh-Nrztefegfa Swelling, redness Review of Systems: See HPI for pertinent positives. All others negative, other than those noted in HPI. Physical Exam: BP 120/80 | Pulse 86 | Wt 62.6 kg (138 lb) | BMI 21.29 kg/m | BSA 1.73 m General: No acute distress. A+Ox3. HEENT: Normocephalic. Atraumatic. Conjunctiva and sclera clear. NECK: No carotid bruits. No JVD. Carotid upstrokes are brisk. Heart: Irregular. S1 and S2 noted . +1/6 systolic murmur Lungs: Clear to auscultation. No wheezes, rhonchi, rales. Abdomen: Normal bowel sounds. Soft. Nontender. No masses or organomegaly. No abdominal bruits. Extremities: No edema. No clubbing or cyanosis. Pulses: radial=2/4, posterior tibial=2/4, dorsalis pedis = 2/4. NEURO: No focal deficits. PSYCH: Normal. Lab data/imaging study review: Echo at [facility] 08/18/2023 Impression/Plan: This is an 88 year old female who is being evaluated in the cardiology office for ongoing care/riskmanagement for the below diagnoses. 1. Chronic heart failure with preserved ejection fraction (HCC) -Chronic HFpEF, NYHA class 2-3 -Euvolemic on exam. 1. Continue Lasix 20 mg every Sunday, repeat blood work ordered. 2. Repeat chest x-ray given bilateral pleural effusions status post thoracentesis and patient. 2. Persistent atrial fibrillation (HCC) -Persistent atrial fibrillation, initially diagnosed, 08/18/2023 at [facility]. -EKG showing atrial fibrillation, rates 85 beats per minute. Asymptomatic. Continue metoprolol succinate 50 mg daily, room to increase if necessary Anticoagulation deferred due to upper extremity hematoma while admitted. 3. Coronary artery disease involving wilton coronary artery of wilton heart without angina pectoris 4. Status post insertion of drug eluting coronary artery stent -Coronary artery disease/NSTEMI, cardiac catheterization 10/24/2019 with findings of a 99% thromboticocclusion of the proximal LAD, subtotal chronic ostial occlusion of RCA with distal right coronary artery filling retrograde from the left to right collaterals, s/p successful PCI/SOULEYMANE to the proximalto mid LAD. -Stable, no angina. 1. Continue aspirin 81 mg daily 5. S/P aortic valve replacement -Aortic valve stenosis status post bioprosthetic AVR (21 mm vega Rdz pericardial valve), 10/03/2007 -Stable gradients on inpatient echo 1. Continue aspirin 81 mg daily Antibiotics needed for all dental work 6. HTN, goal below 140/90 Well controlled. No medication changes needed at this time. 7. Dyslipidemia, goal LDL below 70 1. Continue atorvastatin 40 mg daily The patient agrees to the above plan and will call with additional questions or concerns. ER with all emergencies advised. Follow-up: Return in about 3 months (around 12/19/2023). | Check-out note: Labs today and a CXR. I spent a total of 40 minutes on the date of service in preparation, delivery, and documentation ofthe care provided to Batsheva Dumas excluding any time spent in the performance of separately billed services. WILLY Stephen, Department of Cardiology This chart was completed in part utilizing [employer] Speech Voice Recognition Software. Grammatical errors, random word insertions, prounoun errors, and incomplete sentences are an occasional consequence of this system due to software limitations, ambient noise, and hardware issues. Any formal questions or concerns about the content, text, or information contained within the body of this dictation should be directly addressed to the provider for clarification. documented in this encounter Nursing Notes * Melva Macias CMA - 09/20/2023 3:00 PM EST Examination Room: 7 Name: Batsheva Dumas Date of : (1935) Reason for Visit: HD Interim Hospitalization(s): 08/31 [facility] Problems/Concerns: denied Chest Pain/SOB: denied My [facility] is a way you can talk to your provider online through e-mail. Would you like to sign up? I can activate it for you? ALREADY ACTIVE Patient was instructed to not get up on the exam table until directed and assisted by their provider; patient is to remain seated in the chair/ wheelchair/ exam table for fall prevention and safety reasons. Patient is aware to have assistance to step down off exam table with personnel. Patient voiced full comprehension of instructions. documented in this encounter Miscellaneous Notes * Addendum Note - Tremaine Panchal COT - 09/20/2023 3:41 PM ESTAddended by: TREMAINE PANCHAL on: 09/20/2023 03:41 PM Modules accepted: Orders documented in this encounter Plan of Treatment Upcoming Encounters Date Type Department Care Team (Late st Contact Info) Description 09/20/2023 4:00 PM EST Laboratory Laboratory, [address] [place] [id number] [place] [address] Chronic heart failure with preserved ejection fraction (HCC); Persistent atrial fibrillation (HCC); Coronary artery disease involving wilton coronary artery of wilton heart without angina pectoris; Status post insertion of drug eluting coronary artery stent; S/P aortic valve replacement; HTN, goal below 140/90; Dyslipidemia, goal LDL below 70 09/20/2023 4:10 PM EST Imaging Radiology [facility] [address] [place] [address] 12/13/2023 3:00 PM EDT Office Visit Cardiology, [facility] [address] [facility] [place] [address] Alexandra Ortiz CRNP [address] [facility] [place] [address] 01/22/2024 2:30 PM EDT Office Visit Rheumatology [address] [place] [address] Oskar Rodgers CRNP [facility] [address] [address] Pending Results Name Type Priority Associated Diagnoses Date /Time BASIC METABOLIC PANEL Lab Routine Chronic heart failure with preserved ejection fraction (HCC) Persistent atrial fibrillation (HCC) Coronary artery disease involving wilton coronary artery of wilton heart without angina pectoris Status post insertion of drug eluting coronary artery stent S/P aortic valve replacement HTN, goal below 140/90 Dyslipidemia, goal LDL below 70 09/20/2023 3:40 PM EST CBC Lab Routine Chronic heart failure with preserved ejection fraction (HCC) Persistent atrial fibrillation (HCC) Coronary artery disease involving wilton coronary artery of wilton heart without angina pectoris Status post insertion of drug eluting coronary artery stent S/P aortic valve replacement HTN, goal below 140/90 Dyslipidemia, goal LDL below 70 09/20/2023 3:40 PM EST MAGNESIUM Lab Routine Chronic heart failure with preserved ejection fraction (HCC) Persistent atrial fibrillation (HCC) Coronary artery disease involving wilton coronary artery of wilton heart without angina pectoris Status post insertion of drug eluting coronary artery stent S/P aortic valve replacement HTN, goal below 140/90 Dyslipidemia, goal LDL below 70 09/20/2023 3:40 PM EST Scheduled Orders Name Type Priority Associated Diagnoses Orde r Schedule BASIC METABOLIC PANEL Lab Routine Chronic heart failure with preserved ejection fraction (HCC) Persistent atrial fibrillation (HCC) Coronary artery disease involving wilton coronary artery of wilton heart without angina pectoris Status post insertion of drug eluting coronary artery stent S/P aortic valve replacement HTN, goal below 140/90 Dyslipidemia, goal LDL below 70 Expected: 09/20/2023, Expires: 09/19/2024 CBC Lab Routine Chronic heart failure with preserved ejection fraction (HCC) Persistent atrial fibrillation (HCC) Coronary artery disease involving wilton coronary artery of wilton heart without angina pectoris Status post insertion of drug eluting coronary artery stent S/P aortic valve replacement HTN, goal below 140/90 Dyslipidemia, goal LDL below 70 Expected: 09/20/2023, Expires: 09/19/2024 MAGNESIUM Lab Routine Chronic heart failure with preserved ejection fraction (HCC) Persistent atrial fibrillation (HCC) Coronary artery disease involving wilton coronary artery of wilton heart without angina pectoris Status post insertion of drug eluting coronary artery stent S/P aortic valve replacement HTN, goal below 140/90 Dyslipidemia, goal LDL below 70 Expected: 09/20/2023, Expires: 09/19/2024 XR CHEST 2 VIEWS Medical Imaging Routine Chronic heart failure with preserved ejection fraction (HCC) Persistent atrial fibrillation (HCC) Coronary artery disease involving wilton coronary artery of wilton heart without angina pectoris Status post insertion of drug eluting coronary artery stent S/P aortic valve replacement HTN, goal below 140/90 Dyslipidemia, goal LDL below 70 Ordered: 09/20/2023 EKG EKG Routine Persistent atrial fibrillation (HCC) Ordered: 09/20/2023 Health Maintenance Due Date Last Done Comments Zoster Vaccines (2 of 3) 11/19/2008 09/24/2008 DTaP,Tdap,and Td Vaccines (1 - Tdap) 11/19/2011 11/18/2011, 02/03/2010 Albumin/Creatinine Ratio 08/11/2017 017, 08/25/2015, 02/08/2015, Additional history exists CKD PHOS USE SMARTSET 45106 02/13/201801/21, 08/11/2016, 08/25/2015, Additional history exists CKD HGB USE SMARTSET 03614 12/20/201812/20, 10/26/2017, 09/19/2017, Additional history exists Depression Screening 12/20/2018 12/20/2017 COVID-19 Vaccine ( season) 2023 06/10/2021, 09/13/2020, 08/16/2020 DXA Scan 03/15/2024 03/15/2022, 06/0 02/2020, 10/09/2017, Additional history exists Pneumococcal Vaccine: 65+ Years Completed 05/21/2015, 12/09/2008, 06/10/2002 VITAMIN D LEVEL ONCE IN A LIFETIME-USE SMARTSET# [id number] Completed 01/01/2023, 08/03/2021, 04/26/2018, Additional history exists [...] this encounter Medical Devices Implanted Type Area Deputy Probation Officer Device Identifier Shelf Expiration Date Model / Serial / Lot Valve Ce Aortic 21mm [id number] - [id number] Implanted:Qty : 1 on 10/03/2007 [place] [facility] Tissue - Non Human N/A: Heart RDZ Replenish 03/23/2009 [id number] / documented as of this encounter Visit Diagnoses Diagnosis Chronic heart failure with preserved ejection fraction (HCC)- Primary Persistent atrial fibrillation (HCC) Atrial fibrillation Coronary artery disease involving wilton coronary artery of wilton heart without angina pectoris Status post insertion of drug eluting coronary artery stent Postsurgical percutaneous transluminal coronary angioplasty status S/P aortic valve replacement Heart valve replaced by other means HTN, goal below 140/90 Unspecified essential hypertension Dyslipidemia, goal LDL below 70 Other and unspecified hyperlipidemia Chronic heart failure with preserved ejection fraction (HCC) Persistent atrial fibrillation (HCC) Atrial fibrillation Coronary artery disease involving wilton coronary artery of wilton heart without angina pectoris Status post insertion of drug eluting coronary artery stent Postsurgical percutaneous transluminal coronary angioplasty status S/P aortic valve replacement Heart valve replaced by other means HTN, goal below 140/90 Unspecified essential hypertension Dyslipidemia, goal LDL below 70 Other and unspecified hyperlipidemia documented in this encounter Advance Directives Latest Code Status on File Code Status Date Activated Date Inactivated Comments Full Code 10/03/2007 4:11 PM 10/17/2007 12:14 AM Care Teams Pest Control Operator Relationship Specialty Start Date End Date Brayan Gayle DO [address] [place] [place] [address] PCP - General 09/17/18 documented as of this encounter
--- OUTSIDE RECORDS SUMMARY | 2023-10-08 09:13 | External Medical Summary | Summary of Care ---
Author Name Unknown Organization [facility] Address [address] [facility] [place] [address] Phone [phone] Care Team Providers Care Clinical Transplant Coordinator Name Role Phone Brayan Gayle DO Primary Care Provider + [phone] Reason for Visit * Reason Comments Hospital Follow-Up Encounter Details Date Type Department Care Team (Late st Contact Info) Description 09/20/2023 3:00 PM EST Office Visit Cardiology, [facility] [address] [place] [address] Alexandra Ortiz CRNP [address] [place] [address] Chronic heart failure with preserved ejection fraction (HCC)*; Persistent atrial fibrillation (HCC); Coronary artery disease involving [place] coronary artery of [place] heart without angina pectoris; Status post insertion of drug eluting coronary artery stent; S/P aortic valve replacement; HTN, goal below 140/90; Dyslipidemia, goal LDL below 70 Allergies Active Allergy Reactions Criticality Noted Date Comments Allopurinol Rash 12/23/2009 Cephalosporins 03/10/2019 Unknown Pushvflf-Vpcfhizeh-Xjqljtjvvu 2018 Swelling, redness Omeprazole Rash High 07/30/2017 [...] knee 07/04/2023 Coronary artery disease invo lving [place] coronary artery of [place] heart without angina pectoris 03/23/2020 Status post [...] Taxonomy. 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 10/18/2007 08/18/2009 watermelon inspector current use of ant icoagulant therapy 10/10/2007 [...] not included. Cardiology Outpatient Visit 09/20/2023 Primary Social Services Designee: Dr. Lynne Past medical history: Aortic valve [...] Persistent atrial fibrillation, initially diagnosed, 08/18/2023 at [facility]. Anticoagulation deferred due to upper extremity hematoma while admitted. Hypertension CKD stage 3 Dyslipidemia Polymyalgia rheumatica with chronic anemia Dementia HPI 88-year-old female presenting to the cardiology office today in follow-up after recent hospital admission. She is a resident of [facility]. Patient was admitted from 08/18/2023 to 08/31/2023 secondary to new onset AFib with RVR as well as acute on chronic heart failure. Echocardiogram that admission showed hyperdynamic LV systolic function of greater than 70% with hbjy-ua-cgerfbxb MR and moderate TR. Pulmonary pressures were [...] polyps Carcinoma in situ of cervix uteri [facility] 1997 CHOLELITHIASIS NOS - surgery 05/03/2000 [...] breast 06/10/09 stable calcifcations, benign, repeat in [facility] Supraventricular aortic stenosis Past Surgical History: Procedure [...] performed by Elsa Caraballo DO at ENDOSCOPY [facility] EGD, FLEXIBLE, DIAGNOSTIC 07/01/2015 HH, otherwise normal/ESOPHAGOGASTRODUODENOSCOPY (EGD), FLEXIBLE, TRANSORAL, DIAGNOSTIC performed byElsa Caraballo DO at [facility]COPY [facility] EGD, FLEXIBLE, DIAGNOSTIC 07/06/2017 Schatzki ring/[facility] EGD, FLEXIBLE, DIAGNOSTIC 08/01/2018 hiatal hernia/[facility] LIGATE/DIVID & STRIP GSV & LSV 1956 right LIGATE/DIVID & STRIP GSV & LSV [address] Abdalla REPLACEMENT AORTIC VALVE, BYPASS WITH PROSTHETIC VALVE 10/03/07 REPLACEMENT AORTIC VALVE performed by VONNIE MARR at OR [facility] TOTAL HYSTERECTOMY Social History Tobacco Use Smoking [...] Prilosec [Omeprazole] Rash Allopurinol Rash Cephalosporins Unknown Evxmctgq-Tznesauik-Hincmprmyu Swelling, redness Review of Systems: See HPI [...] Normal. Lab data/imaging study review: Echo at [facility] 08/18/2023 Impression/Plan: This is an 88 year [...] -Persistent atrial fibrillation, initially diagnosed, 08/18/2023 at [facility]. -EKG showing atrial fibrillation, rates 85 beats per minute. Asymptomatic. Continue metoprolol succinate 50 mg daily, room to increase if necessary Anticoagulation deferred due to upper extremity hematoma while admitted. 3. Coronary artery disease involving [place] coronary artery of [place] heart without angina pectoris 4. Status post [...] This chart was completed in part utilizing [employer] Speech Voice Recognition Software. Grammatical errors, random [...] Reason for Visit: HD Interim Hospitalization(s): 08/31 [facility] Problems/Concerns: denied Chest Pain/SOB: denied My [facility] [...] Description 09/20/2023 4:00 PM EST Laboratory Laboratory, [address] [place] [id number] [place] [address] Chronic heart failure with preserved ejection fraction (HCC); Persistent atrial fibrillation (HCC); Coronary artery disease involving [place] coronary artery of [place] heart without angina pectoris; Status post insertion of drug eluting coronary artery stent; S/P aortic valve replacement; HTN, goal below 140/90; Dyslipidemia, goal LDL below 70 09/20/2023 4:10 PM EST Imaging [facility] [address] [place] [address] Arrived 12/13/2023 3:00 PM EDT Office Visit Cardiology, [facility] [address] [facility] [place] [address] Alexandra Ortiz CRNP [address] [facility] [place] [address] 01/22/2024 2:30 PM EDT Office Visit Rheumatology [address] [place] [address] Oskar Rodgers CRNP [address] [place] [address] [place] [address] Pending Results Name Type Priority Associated Diagnoses Date /Time BASIC METABOLIC PANEL Lab Routine Chronic heart failure with preserved ejection fraction (HCC) Persistent atrial fibrillation (HCC) Coronary artery disease involving [place] coronary artery of [place] heart without angina pectoris Status post insertion of drug eluting coronary artery stent S/P aortic valve replacement HTN, goal below 140/90 Dyslipidemia, goal LDL below 70 09/20/2023 3:40 PM EST CBC Lab Routine Chronic heart failure with preserved ejection fraction (HCC) Persistent atrial fibrillation (HCC) Coronary artery disease involving [place] coronary artery of [place] heart without angina pectoris Status post insertion of drug eluting coronary artery stent S/P aortic valve replacement HTN, goal below 140/90 Dyslipidemia, goal LDL below 70 09/20/2023 3:40 PM EST MAGNESIUM Lab Routine Chronic heart failure with preserved ejection fraction (HCC) Persistent atrial fibrillation (HCC) Coronary artery disease involving [place] coronary artery of [place] heart without angina pectoris Status post insertion of drug eluting coronary artery stent S/P aortic valve replacement HTN, goal below 140/90 Dyslipidemia, goal LDL below 70 09/20/2023 3:40 PM EST XR CHEST 2 VIEWS Medical Imaging Routine Chronic heart failure with preserved ejection fraction (HCC) Persistent atrial fibrillation (HCC) Coronary artery disease involving [place] coronary artery of [place] heart without angina pectoris Status post insertion of drug eluting coronary artery stent S/P aortic valve replacement HTN, goal below 140/90 Dyslipidemia, goal LDL below 70 09/20/2023 3:42 PM EST Scheduled Orders Name Type Priority Associated Diagnoses Orde r Schedule BASIC METABOLIC PANEL Lab Routine Chronic heart failure with preserved ejection fraction (HCC) Persistent atrial fibrillation (HCC) Coronary artery disease involving [place] coronary artery of [place] heart without angina pectoris Status post insertion of drug eluting coronary artery stent S/P aortic valve replacement HTN, goal below 140/90 Dyslipidemia, goal LDL below 70 Expected: 09/20/2023, Expires: 09/19/2024 CBC Lab Routine Chronic heart failure with preserved ejection fraction (HCC) Persistent atrial fibrillation (HCC) Coronary artery disease involving [place] coronary artery of [place] heart without angina pectoris Status post insertion of drug eluting coronary artery stent S/P aortic valve replacement HTN, goal below 140/90 Dyslipidemia, goal LDL below 70 Expected: 09/20/2023, Expires: 09/19/2024 MAGNESIUM Lab Routine Chronic heart failure with preserved ejection fraction (HCC) Persistent atrial fibrillation (HCC) Coronary artery disease involving [place] coronary artery of [place] heart without angina pectoris Status post insertion of drug eluting coronary artery stent S/P aortic valve replacement HTN, goal below 140/90 Dyslipidemia, goal LDL below 70 Expected: 09/20/2023, Expires: 09/19/2024 EKG EKG Routine Persistent atrial fibrillation (HCC) Ordered: 09/20/2023 Health Maintenance Due Date Last Done Comments Zoster Vaccines (2 of 3) 11/19/2008 09/24/2008 DTaP,Tdap,and Td Vaccines (1 - Tdap) 11/19/2011 11/18/2011, 02/03/2010 Albumin/Creatinine Ratio 08/11/2017 017, 08/25/2015, 02/08/2015, Additional history exists CKD PHOS USE SMARTSET 43004 02/13/201801/21, 08/11/2016, 08/25/2015, Additional history exists CKD HGB USE SMARTSET 67608 12/20/201812/20, 10/26/2017, 09/19/2017, Additional history exists Depression Screening 12/20/2018 12/20/2017 COVID-19 Vaccine ( season) 2023 06/10/2021, 09/13/2020, 08/16/2020 DXA Scan 03/15/2024 03/15/2022, 06/0 02/2020, 10/09/2017, Additional history exists Pneumococcal Vaccine: 65+ Years Completed 05/21/2015, 12/09/2008, 06/10/2002 VITAMIN D LEVEL ONCE IN A LIFETIME-USE SMARTSET# [id number] Completed 01/01/2023, 08/03/2021, 04/26/2018, Additional history exists [...] this encounter Medical Devices Implanted Type Area Database Administrator Device Identifier Shelf Expiration Date Model / Serial / Lot Valve Ce Aortic 21mm 3000tfx - [id number] Implanted:Qty : 1 on 10/03/2007 at OR [facility] Tissue - Non Human N/A: Heart [employer] 03/23/2009 3000TFX-2 / [id number] / documented as of this encounter Visit Diagnoses Diagnosis Chronic heart failure with preserved ejection fraction (HCC)- Primary Persistent atrial fibrillation (HCC) Atrial fibrillation Coronary artery disease involving [place] coronary artery of [place] heart without angina pectoris Status post insertion of drug eluting coronary artery stent Postsurgical percutaneous transluminal coronary angioplasty status S/P aortic valve replacement Heart valve replaced by other means HTN, goal below 140/90 Unspecified essential hypertension Dyslipidemia, goal LDL below 70 Other and unspecified hyperlipidemia Chronic heart failure with preserved ejection fraction (HCC) Persistent atrial fibrillation (HCC) Atrial fibrillation Coronary artery disease involving t[place] apache coronary artery of t[place] apache heart without angina pectoris Status post insertion [...] 4:11 PM 10/17/2007 12:14 AM Care Teams Clinical Transplant Coordinator Relationship Specialty Start Date End Date Brayan Gayle DO [address] [place] [address] PCP - General 09/17/18 documented as of this encounter
--- OUTSIDE RECORDS SUMMARY | 2023-10-08 09:13 | External Medical Summary | Summary of Care ---
Author Name Unknown Organization [facility] Address [address] [facility] [place] [address] Phone [phone] Care Team Providers Care Immigration Attorney Name Role Phone Brayan Gayle DO Primary Care Provider Encounter Details Date Type Department Care Team (Late st Contact Info) Description 08/24/2023 Orders Only Cardiology, [facility] [address] [place] [address] Corey Guerin DO [address] [place] [address] Allergies Active Allergy Reactions Criticality Noted Date Comments Allopurinol Rash 12/23/2009 Cephalosporins 03/10/2019 Unknown Pwyqmxll-Mxrnjebus-Hdyvbabiro 2018 Swelling, redness Omeprazole Rash High 07/30/2017 documented as of this encounter (statuses as of 08/24/2023) Medications Medication Sig Dispensed Refills Start Date [...] Release 24 Hour (Imdur) 0 07/02/2023 Active documented as of this encounter (statuses as of 08/24/2023) Active Problems Problem Noted Date Diagnosed Date Primary osteoarthritis of left knee 07/04/2023 Coronary artery disease invo lving [place] coronary artery of [place] heart without angina pectoris 03/23/2020 Status post [...] as of this encounter (statuses as of 08/24/2023) Resolved Problems Problem Noted Date Diagnosed Date Resolved Date Hyponatremia 03/04/2014 12/24/2015 Injury of leg, left, superficial 11/30/2011 08/19/2012 Obesity, Class II, BMI 35-39 .9, isolated (see actual BMI) 01/03/2010 08/19/2012 Overview: Per Obesity Protocol, #19 Dyslipidemia, goal to be determined 07/01/2009 10/10/2012 Overview: Per Lipid Taxonomy. 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 10/18/2007 08/18/2009 supervisor intermediates current use of ant icoagulant therapy 10/10/2007 02/19/2012 Overview: ICD-10 update of inactive term Anticoagulation management encounter 10/10/2007 08/19/2012 Examination following surgery 10/04/2007 08/19/2012 CARDIAC MURMURS NEC - aortic stenosis 10/20/1999 08/19/2012 Edema 10/20/1999 08/19/2012 Mixed dyslipidemia 12/10/200 9 Overview: Per Lipid Taxonomy. Menopause 08/19/2012 Aortic valve stenosis 2012 Rosacea 08/20/2008 Overview: Resolved per Duplicate Protocol #2. Osteoporosis 02/20/2011 Supraventricular aortic stenosis 08/19/2012 Rosacea 08/20/2008 Overview: Resolved per Duplicate Protocol #2. Osteoporosis 08/19/2012 Polymyalgia rheumatica 08/19 documented as of this encounter (statuses as of 08/24/2023) Immunizations Name Administration Dates Next Due COVID-19 [...] on file documented as of this encounter Plan of Treatment Upcoming Encounters Date Type Department Care Team (Late st Contact Info) Description 01/04/2024 1:20 PM EDT Office Visit Rheumatology [place] [phone] [email or web address] [address] Jack Whitmore MD [facility] [place] [address] Pending Results Name Type Priority Associated Diagnoses Date /Time XR CHEST 1 VIEW Medical Imaging Routine 07/2023 Health Maintenance Due Date Last Done Comments Zoster Vaccines (2 of 3) 11/19/2008 09/24/2008 DTaP,Tdap,and Td Vaccines (1 - Tdap) 11/19/2011 11/18/2011, 02/03/2010 Albumin/Creatinine Ratio 08/11/2017 017, 08/25/2015, 02/08/2015, Additional history exists CKD PHOS USE SMARTSET 38703 2018 07/11/2016, 08/11/2016, 08/25/2015, Additional history exists CKD HGB USE SMARTSET 75146 12/20/201812/20, 10/26/2017, 09/19/2017, Additional history exists Depression Screening 12/20/2018 12/20/2017 COVID-19 Vaccine ( season) 2023 06/10/2021, 09/13/2020, 08/16/2020 DXA Scan 03/15/2024 03/15/2022, 02/2020, 10/09/2017, Additional history exists Pneumococcal Vaccine: 65+ Years Completed 05/21/2015, 12/09/2008, 06/10/2002 VITAMIN D LEVEL ONCE IN A LIFETIME-USE SMARTSET# [id number] Completed 01/01/2023, 08/03/2021, 04/26/2018, Additional history exists [...] this encounter Medical Devices Implanted Type Area Painter Tumbling Barrel Device Identifier Shelf Expiration Date Model / Serial / Lot Valve Ce Aortic 21mm 3000tfx - [id number] Implanted:Qty : 1 on 10/03/2007 at OR [facility] Tissue - Non Human N/A: Heart [employer] 03/23/2009 3000TFX-2 1 / [id number] / documented as of this encounter Advance Directives Latest Code Status on File Code Status Date Activated Date Inactivated Comments Full Code 10/03/2007 4:11 PM 10/17/2007 12:14 AM Care Teams Immigration Attorney Relationship Specialty Start Date End Date Brayan Gayle DO [address] [facility] [place] [address] PCP - General 09/17/18 documented as of this encounter
--- OUTSIDE RECORDS SUMMARY | 2023-10-08 09:13 | External Medical Summary ---
Author Name Unknown Address Unknown Organization [id number][facility] [place] [address] [place] [address] Laboratory Report Ordering Provider Test Date Status BETTY CALDERON 09/20/2023 15:40:18 Final Observation Date Value Abnormality Reference (Units ) Status BUN 09/20/2023 15:40:18 25 Above high normal 6-20 (mg/dL) Final Creatinine 09/20/2023 15:40:18 1.1 Above high normal 0.5-1.0 (mg/dL) Final Glomerular filtration rate/1.73 sq M.predicted [Volume Rate/Area] in Serum, Plasma or Blood by Creatinine-based formula (CKD-EPI) 09/20/2023 15:40:18 49 Below low normal >=60 (mL/min) Final eGFR is calculated based on the CKD-EPI 2020 equation SODIUM 09/20/2023 15:40:18 138 135-146 (m mol/L) Final Potassium 09/20/2023 15:40:18 4.3 3.5-5.1 (m mol/L) Final Cl 09/20/2023 15:40:18 100 98-107 (mm ol/L) Final CO2 09/20/2023 15:40:18 27 22-32 (mmo l/L) Final Anion gap 09/20/2023 15:40:18 11 7-15 (mmol /L) Final Glucose 09/20/2023 15:40:18 97 70-120 (mg /dL) Final Calcium 09/20/2023 15:40:18 9.7 8.4-10.2 ( mg/dL) Final Performing Location [facility] [address] [place] [address]
--- OUTSIDE RECORDS SUMMARY | 2023-10-08 09:13 | External Medical Summary | Summary of Care ---
Author Name Unknown Organization [facility] Address [address] [facility] [place] [address] Phone [phone] Care Team Providers Care Automotive Project Engineer Name Role Phone EsaBrayan romero Primary Care Provider [phone] Reason for Visit * Reason Onset Date Comments Rheum Follow Up Recheck PMR Medication Administration 01/01/2023 Prolia Encounter Details Date Type Department Care Team (Latest Contact Info) Description 01/01/2023 11:10 AM EDT Office Visit Rheumatology [address] [place] [address] Felisha Zamora PA-C Senile osteoporosis*; Primary osteoarthritis of left knee Allergies Active Allergy Reactions Criticality Noted Date Comments Allopurinol Rash 12/23/2009 Cephalosporins 03/10/2019 Unknown Wagjmche-Kfqsvefgz-Anbwcetvws 2018 Swelling, redness Omeprazole Rash High 07/30/2017 documented as of this encounter (statuses as of 09/22/2023) Medications Medication Sig Dispensed Refills Start Date End Date Status ASPIRIN 81 MG PO TABS Take 1 Tablet by mouth in the morning. 0 Active amoxicillin (AMOXIL) 500 MG Capsule 5 05/01/2016 Active acetaminophen (TYLENOL) 500 MG Tablet Take 1 Tablet by mouth every 6 hours as needed for Pain. 0 Active AUG BETAMETHASONE DIPROPIONATE (DIPROLENE AF) 0.05 % creamIndications:De rmatitis Apply topically to affected area 2 times [...] (toPROL XL) 1 daily 0 12/19/2022 Active lisinopril (PRINIVIL) 5 MG TabletIndications:K idney disease, chronic, stage III (GFR 30-59 ml/min) ([facility]),Essential hypertension with goal blood pressure less than 140/90 TAKE 1 TABLET EVERY DAY 90 Tab 3 06/07/2017 3 Discontinued furosemide (LASIX) 20 MG Tablet Take 1 Tab by mouth daily. In the morning. 90 Tab 3 11/29/2017 4 Discontinued metoprolol succinate XL (TOPROL XL) 25 MG [id number]:Kid peace disease, chronic, stage III (GFR 30-59 ml/min) ([facility]),HTN, goal below 140/90 TAKE 1/2 TABLET ONE TIME DAILY 45 Tab 1 01/10/2018 3 Discontinued Dextromethorphan-gu aiFENesin (MUCINEX DM) 30-600 MG TB12 Take by mouth. 1 twice daily as needed 0 3 Discontinued tobramycin-dexameth asone (TOBRADEX) 0.3-0.1 % ophthalmic solution Instill 1 Drop into the left eye every 4 hours while awake. 0 3 Discontinued oxybutynin (DITROPAN) 5 MG Tablet Take 5 mg by mouth daily. 0 3 Discontinued isosorbide mononitrate SA (IMDUR) 30 MG TB24 1 Tablet (30 mg) in the morning. 0 10/27/2019 3 Discontinued Polyethyl Glycol-Propyl Glycol 0.4-0.3 % Ophthalmic Solution Instill into eye as needed for Dry eyes. 0 3 Discontinued Sertraline HCl 50 MG Oral Tablet (Zoloft) Take 1 Tablet (50 mg) by mouth every evening. 0 05/11/2022 3 Discontinued Lisinopril 30 MG Oral Tablet 1 daily 0 12/19/2022 4 Discontinued Hospital, Clinic, or Other Facility Administered Medication Ordered Dose Route Frequency Start Date End Date Status Lidocaine (PF) 2 % (PF) inj 20 mgIndications:Primary osteoarthritis of left knee 20 mg IX ONCE 01/01/2023 01/02/20 23 Ended methylPREDNISolone acetate (Depo-Medrol) 40 MG/ML inj 40 mgIndications:Primary osteoarthritis of left knee 40 mg IX ONCE 01/01/2023 01/02/20 23 Ended Denosumab (Prolia) subcut inj 60 mgIndications:Senile osteoporosis 60 mg SC ONCE 01/01/2023 01/01/2023 Ended documented as of this encounter (statuses as of 09/22/2023) Active Problems Problem Noted Date Diagnosed Date 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 10/18/2007 08/18/2009 half-way current use of ant icoagulant therapy 10/10/2007 [...] as of this encounter (statuses as of 09/22/2023) Immunizations Name Administration Dates Next Due COVID-19 mRNA, LNP-s, No Pre serve, 2-Dose Series (Moderna) 06/10/2021,09/13/2020,08/16/2020 Pneumococcal Conjugate Vacc, 13 Valent (Prevnar) 05/21/2015 Pneumococcal Polysaccharide PPV23 (Pneumovax) 12/09/2008,06/10/2002 Seasonal Influenza Virus Vac cine, Unspecified Formulation [...] Sign Reading Time Taken Comments Blood Pressure 110/60 01/01/2023 11:21 AM EDT Pulse - - Temperature 36.4 C (97.5 F) 01/01/2023 11:21 AM E DT Respiratory Rate - - Oxygen Saturation - - Inhaled Oxygen Concentration - - Weight 74.8 kg (165 lb) 01/01/2023 11:21 AM EDT Height - - Body Mass Index 25.46 03/10/2019 11:58 AM EDT documented in this encounter Patient Instructions * Patient Instructions* Felisha Zamora PA-C - 01/01/2023 11:41 AM EDT MEDICATION GUIDE Prolia (ID-zuly-a) (denosumab) Injection Read the Medication Guide that comes with Prolia before you start taking it and each time you get arefill. There may be new information. This Medication Guide does not take the place of talking withyour doctor about your medical condition or treatment. Talk to your doctor if you have any questions about Prolia. What is the most important information I should know about Prolia? Prolia can cause serious side effects includin. Low calcium levels in your blood (hypocalcemia). Prolia may lower the calcium levels in your blood. If you have low blood calcium before you start receiving Prolia, it may get worse during treatment. Your low blood calcium must be treated before you receive Prolia. Most people with low blood calcium levels do not have symptoms, but some people may have symptoms. Call your doctor right away if you have symptoms of low blood calcium such as: Spasms, twitches, or cramps in your muscles Numbness or tingling in your fingers, toes, or around your mouth Your doctor may prescribe calcium and vitamin D to help prevent low calcium levels in your blood while you take Prolia. Take calcium and vitamin D as your doctor tells you to. 2. Serious infections. Serious infections in your skin, lower stomach area (abdomen), bladder, or ear may happen if you take Prolia. Inflammation of the inner lining of the heart (endocarditis) due to an infection also mayhappen more often in people who take Prolia. You may need to go to the hospital for treatment if you develop an infection. Prolia is a medicine that may affect your immune system. People who have weakened immune system or take medicines that affect the immune system may have an increased risk for developing serious infections. Call your doctor right away if you have any of the following symptoms of infection: Fever or chills Skin that looks red or swollen and is hot or tender to touch Severe abdominal pain Frequent or urgent need to urinate or burning feeling when you urinate 3. Skin problems. Skin problems such as inflammation of your skin (dermatitis), rash, and eczema may happen if you take Prolia. Call your doctor if you have any of the following symptoms of skin problems that do not go away or get worse: Redness Itching Small bumps or patches (rash) Your skin is dry or feels like leather Blisters that ooze or become crusty Skin peeling 4. Severe jaw bone problems (osteonecrosis). Severe jaw bone problems may happen when you take Prolia. Your doctor should examine your mouth before you start Prolia. Your doctor may tell you to see your dentist before you start Prolia. It is important for you to practice good mouth care during treatment with Prolia. Call your doctor right away if you have any of these side effects. What is Prolia? Prolia is a prescription medicine used to treat osteoporosis (thinning and weakening of bone) in women after menopause (change of life) who Have an increased risk for fractures (broken bones). Cannot use another osteoporosis medicine or other osteoporosis medicines did not work well. Who should not receive Prolia? Do not take Prolia if you have been told by your doctor that your blood calcium level is too low. What should I tell my doctor before receiving Prolia? Before taking Prolia, tell your doctor if you: Have low blood calcium. Cannot take daily calcium and vitamin D. Had parathyroid or thyroid surgery (glands located in your neck). Have been told you have trouble absorbing minerals in your stomach or intestines (malabsorptionsyndrome). Have kidney problems or are on kidney dialysis. Plan to have dental surgery or teeth removed. Are or plan to become . Prolia may harm your unborn baby. Tell your doctor right away if you become while taking Prolia. Surveillance Program: Prolia is not intended for use in women. If you become while taking Prolia, talk to your doctor about enrolling with [employer]illance[employer] or call (l-900-56-OnTheRoad). The purpose of this program is to collect information about women who have become while taking Prolia. Are breast-feeding or plan to breast-feed. It is not known if Prolia passes into your breast milk. You and your doctor should decide if you will take Prolia or breast-feed. You should not do both. Tell your doctor about all the medicines you take, including prescription and nonprescription drugs, vitamins, and herbal supplements. Know the medicines you take. Keep a list of medicines with you to show to your doctor or pharmacistwhen you get a new medicine. How will I receive Prolia? Prolia is an injection that will be given to you by a healthcare professional. Prolia is injected under your skin (subcutaneous). You will receive Prolia 1 time every 6 months. You should take calcium and vitamin D as your doctor tells you to while you receive Prolia. If you miss a dose of Prolia, you should receive your injection as soon as you can. Take good care of your teeth and gums while you receive Prolia. [place] and floss your teeth regularly. Tell your dentist that you are receiving Prolia before you have dental work. What are the possible side effects of Prolia? Prolia may cause serious side effects. See What is the most important information I should know about Prolia? Long-term effects on bone: It is not known if the use of Prolia over a long period of time may cause slow healing of broken bones or unusual fractures. The most common side effects of Prolia are: Back pain Pain in your arms and legs High cholesterol Muscle pain Bladder infection These are not all the possible side effects of Prolia. For more information, ask your doctor or pharmacist. Call your doctor for medical advice about side effects. You may report side effects to FDA at 7-725-KPP-0305. How should I handle Prolia if I need to pick it up from a pharmacy? Keep Prolia in a refrigerator at 36F to 46F (2C to 8C) in the original carton. Do not freeze Prolia. When you remove Prolia from the refrigerator, Prolia must be kept at room temperature [up to 77F (25C)] in the original carton and must be used within 14 days. Do not keep Prolia at temperatures above 77F (25C). Warm temperatures will affect how Prolia works. Do not shake Prolia. Keep Prolia in the original carton to protect from light. Keep Prolia and all medicines out of reach of children. General information about Prolia Do not give Prolia to other people even if they have the same symptoms that you have. It may harm them. This Medication Guide summarizes the most important information about Prolia. If you would like more information, talk with your doctor. You can ask your doctor or pharmacist for information about Prolia that is written for health professionals. For more information, go to www.[employer] or call [employer] at . What are the ingredients in Prolia? Active ingredient: denosumab Inactive ingredients: sorbitol, acetate, polysorbate 20 (prefilled syringe only), Water for Injection (RESIDENTIAL), and sodium hydroxide What is osteoporosis? Osteoporosis is a disease in which the bones become thin and weak, increasing the chance of having a broken bone. Osteoporosis usually causes no symptoms until a fracture happens. The most common fractures are in the spine (backbone). They can shorten height, even without causing pain. Over time, the spine can become curved or deformed and the body bent over. Fractures from osteoporosis can also happen in almost any bone in the body, for example: the wrist, rib, or hip. Once you have had a fracture, the chance for more fractures greatly increases. The following risk factors increase your chance of getting fractures from osteoporosis: Past broken bones from osteoporosis Very low bone mineral density (BMD) Frequent falls Limited movement, such as using a wheelchair Medical conditions likely to cause bone loss, such as some kinds of arthritis Taking steroid medicines called glucocorticoids, such as prednisone Other medicines that may cause bone loss, for example: seizure medicines (such as phenytoin), blood thinners (such as heparin), high doses of vitamin A What can I do to treat osteoporosis? There are many steps you can take to treat osteoporosis. Taking Prolia, along with calcium and vitamin D, may be one option for you. [employer] a [employer] of [employer] [place], [place] [address] This Medication Guide has been approved by the US Food and Drug Administration. 1xxxxxx ? v1 Issued: 12/2009 documented in this encounter Progress Notes * Felisha Zamora PA-C - 01/01/2023 11:28 AM EDTAssociated Order(s): LG Joint Inj/Arthro: L knee [facility] ([facility]): follow up Supervised by: Dr. Jack Whitmore Previous Visit Plan reviewed. Reason for visit: Patient seen today for further follow-up/evaluation of osteoporosis. Patient is due for Prolia today. She reports no recent falls or fractures. She lives in assisted living in a private room with private bathroom. Is due for labs. DXA reviewed: 02/2022 Bone Health Summary: Risks: Falls since last [facility] visit: no Personal History of Fx since last [facility] Visit: no ROS: . Constitutional: normal . Head normal . Eyes: normal . Ears, nose, throat, mouth: normal . Cardiovascular: normal . Respiratory: normal . Gastrointestinal: normal . Musculoskeletal: normal . Neurologic: normal . Skin: normal . Psychiatric: normal . Endocrine: normal . Hematologic/lymphatic: normal . Allergic/immunologic: normal . Genitourinary: normal Medications: Current Outpatient Medications Medication Sig Dispense Refill ASPIRIN 81 MG PO TABS Take 1 Tablet by mouth in the morning. amoxicillin (AMOXIL) 500 MG Capsule TAKE 4 CAPS BY MOUTH 1 HOUR PRIOR TO APPOINTMENT 5 acetaminophen (TYLENOL) 500 MG Tablet Take 1 Tablet by mouth every 6 hours as needed for Pain. furosemide (LASIX) 20 MG Tablet Take 1 Tab by mouth daily. In the morning. 90 Tab 3 AUG BETAMETHASONE DIPROPIONATE (DIPROLENE AF) 0.05 % cream Apply topically to affected area 2 times [...] by mouth daily as needed for Constipation. 30ml daily as needed Sennosides (SENNA) 8.6 MG Tablet Take 1 Tablet by mouth. Daily if needed omeprazole (PRILOSEC) 20 MG CPDR Take 1 Capsule by mouth in the morning. nitroglycerin (NITROSTAT) 0.4 MG SUBL 1 Tablet. As needed atorvaSTATin (LIPITOR) 40 MG Tablet Take 1 Tablet by mouth at bedtime. Docosanol 10 % External Cream Apply topically to affected area. Psyllium 43 % Oral Powder Take by mouth. Ca Carbonate-Mag Hydroxide 550-110 MG Oral Tablet Chewable Take by mouth. Lisinopril 30 MG Oral Tablet 1 daily Metoprolol Succinate ER 50 MG Oral Tablet Extended Release 24 Hour (toPROL XL) 1 daily No current facility-administered medications for this visit. Social History: Social History Tobacco Use Smoking status: Former Packs/day: 1.00 Years: 35.00 Pack years: 35.00 Types: Cigarettes Quit date: 02/19/1992 Years since quittin.8 Smokeless tobacco: Never Tobacco comments: quit 1992 Substance Use Topics Alcohol use: No Comment: history of alcohol use. None for the past twenty years. Drug use: No PHYSICAL EXAM: General appearance: NAD Eyes: Normal Heme/Lymph: goiter: No Musculoskeletal: Kyphosis Yes Heart: normal Lungs: normal Neuro: no focal findings Assessment: 87 year old female with osteoporosis who has no signs or symptoms.. She needs assessment for ongoing treatment for osteoporosis with Prolia. Patient is aware that I will be leaving [facility] in December and she will follow up with one of my colleagues. Prior to the procedure: Discussed in detail risks and benefits of joint injections. Risks include, but are not limited to, pain, bleeding, infection, local reaction, joint swelling, joint redness, and need for further injection or evaluation. Patient was agreeable to procedure note below. Written consent on file. Plan: The following items are ordered or are in progress: 1. Education: Osteoporosis education was provided by the [facility] team (topics included disease process, DXA, calcium/vitamin D, osteoporosis medications - including administration instructions and risks/benefits, weight bearing exercise, fall prevention/safety). The patient was provided with [facility] patient education instruction sheet(s): Prolia. 2. Prevention: . Eye Examination recommended annually, as good vision may help to prevent falls . Exercise recommended: standing, walking, light lifting . Fall Prevention/Safety Education recommended and discussed . Continue calcium rich foods (goal of 3 servings daily) 3. Osteoporosis Medications : Continue Prolia 60mg subcutaneous injection every 6 months 4. Bone Density Testing: due 2 year(s) from previous 5. Laboratory: 25-OH Vitamin D calcium creatinine 6. Followup: 6 months plus 1 day for Prolia 7. Prolia administered: yes Felisha Zamora PA-C [facility] Team Batsheva Dumas is a 87 year old female patient. ICD-10-CM 1. 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 LG Joint Inj/Arthro: L knee on 01/01/2023 11:40 AM Indications: pain Details: 25 G needle, anteromedial approach Medications: (depomedrol 40 mg Lidocaine 2% without epi 20 mg) Outcome: tolerated well, no immediate complications Procedure, treatment alternatives, risks and benefits explained, specific risks discussed. Consent was given by the patient. Immediately prior to procedure a time out was called to verify the correctpatient, procedure, equipment, support services manager and site/side marked as required. Patient was prepped and draped in the usual sterile fashion. Felisha Zamora PA-C 01/01/2023 The patient was discussed with me. I agree with the findings and plan as documented by Felisha Zamora PA-C in this note. Jack Whitmore MD Rheumatology Department documented in this encounter Nursing Notes * Chata Gallegos LPN - 01/01/2023 11:21 AM EDT Chief Complaint Patient presents with Rheum Follow Up Recheck PMR documented in this encounter Miscellaneous Notes * Addendum Note - Ortega Brandon TECH - 01/01/2023 8:49 PM EDTAddended by: ORTEGA BRANDON on: 01/01/2023 08:49 PM Modules accepted: Orders documented in this encounter Plan of Treatment Upcoming Encounters Date Type Department Care Team (Late st Contact Info) Description 12/13/2023 3:00 PM EDT Office Visit Cardiology, [facility] [address] [place] [id number] Alexandra Ortiz CRNP [address] [place] [id number] 01/22/2024 2:30 PM EDT Office Visit Rheumatology [facility] [address] [place] [address] Oskar Rodgers CRNP [address] [place] [id number] Scheduled Orders Name Type Priority Associated Diagnoses Orde r Schedule DRAWING BLOOD, ROUTINE Procedures Routine Senile osteoporosis Ordered: 01/01/2023 Health Maintenance Due Date Last Done Comments Zoster Vaccines (2 of 3) 11/19/2008 09/24/2008 DTaP,Tdap,and Td Vaccines (1 - Tdap) 11/19/2011 11/18/2011, 02/03/2010 Albumin/Creatinine Ratio 08/11/2017 017, 08/25/2015, 02/08/2015, Additional history exists CKD PHOS USE SMARTSET 70426 02/13/201801/21, 08/11/2016, 08/25/2015, Additional history exists Depression Screening 12/20/2018 12/20/2017 COVID-19 Vaccine ( season) 2023 06/10/2021, 09/13/2020, 08/16/2020 DXA Scan 03/15/2024 03/15/2022, 06/0 02/2020, 10/09/2017, Additional history exists CKD HGB USE SMARTSET 48135 09/19/2024, 12/20/2017, 10/26/2017, Additional history exists Pneumococcal Vaccine: 65+ Years Completed 05/21/2015, 12/09/2008, 06/10/2002 Influenza Vaccine (FLU shot) Completed , 05/04/2021, 04/26/2018, Additional history exists VITAMIN D LEVEL ONCE IN A LIFETIME-USE SMARTSET# [id number] Completed 09/20/2023, 01/01/2023, 08/03/2021, Additional history exists GARDASIL-HPV IMMUNIZATION SERIES Aged Out No longer eligible based on patient's age to complete this topic Hepatitis B Aged Out No longer eligi ble based on patient's age to complete this topic MENINGOCOCCAL (MENACTRA/MENVEO) Aged Out No longer eligible based on patient's age to complete this topic documented as of this encounter Medical Devices Implanted Type Area Animal Science Instructor Device Identifier Shelf Expiration Date Model / Serial / Lot Valve Ce Aortic 21mm [id number] - [id number] Implanted:Qty : 1 on 10/03/2007 at [facility] Tissue - Non Human N/A: Heart [employer] 03/23/2009 [id number] 1 / [id number] / documented as of this encounter Procedures Procedure Name Priority Date/Time Associated Diagnosis Comments 25-HYDROXY VITAMIN D Routine 09/20/2023 3:40 PM EST Senile osteoporosis EXTRA GOLD TOP Routine 01/01/2023 11:48 AM EDT EXTRA TUBES Routine 01/01/2023 11:48 AM EDT 25-HYDROXY VITAMIN D Routine 01/01/2023 11:48 AM EDT Senile osteoporosis CREATININE Routine 01/01/2023 11:48 AM EDT Senile osteoporosis CALCIUM Routine 01/01/2023 11:48 AM EDT Senile osteoporosis ID ARTHROCENTESIS ASPIR&/INJ MAJOR JT/BURSA W/O US Routine 01/01/2023 11:40 AM EDT Primary osteoarthritis of left knee documented in this encounter Results * 25-HYDROXY VITAMIN D (09/20/2023 3:40 PM EST) 25-Hydroxy Vitamin D 44 >19 ng/mL 09/21/2023 2:20 AM EST [facility] Blood Venous blood specimen / Unknown Venipuncture / Unknown 09/20/2023 3:40 PM EST 09/20/2023 3:40 PM EST Narrative [facility] - 09/21/2023 2:20 AM EST Deficient: <20 ng/mL Insufficient: 20-29 ng/mL Recommended/Optimum:30-50 ng/mL Vitamin D intoxication is rare. If suspicious of Vitamin D toxicity, evaluation of serum Calcium and PTH is recommended. Felisha Zamora PA-C [facility] [address] [address] * EXTRA GOLD TOP (01/01/2023 11:48 AM EDT) Blood Venous blood specimen / Unknown 01/01/2023 11:48 AM EDT 01/01/2023 8:49 PM EDT Felisha Zamora PA-C [facility] [address] [address] * 25-HYDROXY VITAMIN D (01/01/2023 11:48 AM EDT) 25-Hydroxy Vitamin D 42 >19 ng/mL 01/01/2023 11:41 PM EDT [facility] Blood Venous blood specimen / Unknown Venipuncture / Unknown 01/01/2023 11:48 AM EDT 01/01/2023 8:48 PM EDT Narrative [facility] - 01/01/2023 11:41 PM EDT Deficient: <20 ng/mL Insufficient: 20-29 ng/mL Recommended/Optimum:30-50 ng/mL Vitamin D intoxication is rare. If suspicious of Vitamin D toxicity, evaluation of serum Calcium and PTH is recommended. Felisha BARRY-C LAB BLO[facility] Performing Organization Address [facility]/ZIP Co de Phone Number [facility] [address] [place] [address] * (ABNORMAL) CALCIUM (01/01/2023 11:48 AM EDT) Calcium 10.7(H) 8.4 - 10.2 mg/dL 01/01/2023 11:00 PM EDT [facility] Blood Venous blood specimen / Unknown Venipuncture / Unknown 01/01/2023 11:48 AM EDT 01/01/2023 8:48 PM EDT Felisha Lsia Sera BARRY-C LAB [facility] Performing Organization Address [facility] Co de Phone Number LABORATORY [address] [place] [address] * (ABNORMAL) CREATININE (01/01/2023 11:48 AM EDT) Creatinine 1.3(H) 0.5 - 1.0 mg/dL 01/01/2023 11:00 PM EDT [facility] Estimated Glomerular Filtration Rate 39(L) >=60 mL/min 01/01/2023 11:00 PM EDT [facility] Comment:eGFR is calculated b ased on the CKD-EPI 2020 equation Blood Venous blood specimen / Unknown Venipuncture / Unknown 01/01/2023 11:48 AM EDT 01/01/2023 8:48 PM EDT Felisha [place] LAB BLOOD O RDERABLES Performing Organization Address [facility] Co de Phone Number LABORATORY [place] [address] [place] [address] * ID ARTHROCENTESIS ASPIR&/INJ MAJOR JT/BURSA W/O US (01/01/2023 11:40 AM EDT) Narrative Jack Whitmore MD - 01/01/2023 11:40 AM EDT Jack Whitmore MD 01/01/2023 12:26 PM LG Joint Inj/Arthro: L knee on 01/01/2023 11:40 AM Indications: pain Details: 25 G needle, anteromedial approach Medications: (depomedrol 40 mg Lidocaine 2% without epi 20 mg) Outcome: tolerated well, no immediate complications Procedure, treatment alternatives, risks and benefits explained, specific risks discussed. Consent was given by the patient. Immediately prior to procedure a time out was called to verify the correct patient, procedure, equipment, support services manager and site/side marked as required. Patient was prepped and draped in the usual sterile fashion. Felisha RICHARDS FOR documented in this encounter Visit Diagnoses Diagnosis Senile osteoporosis- Primary Primary osteoarthritis of left knee Primary localized osteoarthrosis, lower leg documented in this encounter Administered Medications Inactive Administered Medications - up to 3 most recent administrations Medication Order MAR Action Action Date Dose Rate Site Denosumab (Prolia) subcut inj 60 mg 60 mg, Subcutaneous, ONCE, On Sun01/01/23 at 1215, For 1 dose Given 01/01/2023 11:41 AM EDT 60 mg Arm Left Upper Lidocaine (PF) 2 % (PF) inj 20 mg 20 mg, Intra-Articular, ONCE, On Sun01/01/23 at 1215, For 1 dose Given 01/01/2023 11:41 AM EDT 20 mg Knee Left methylPREDNISolone acetate (Depo-Medrol) 40 MG/ML inj 40 mg 40 mg, Intra-Articular, ONCE, On Sun01/01/23 at 1215, For 1 dose Given 01/01/2023 11:41 AM EDT 40 mg Knee Left documented in this encounter Advance Directives Latest Code Status on File Code Status Date Activated Date Inactivated Comments Full Code 10/03/2007 4:11 PM 10/17/2007 12:14 AM Care Teams Automotive Project Engineer Relationship Specialty Start Date End Date Brayan Gayle DO [address] [place] [facility] [place] [address] PCP - General 09/17/18 documented as of this encounter
--- OUTSIDE RECORDS SUMMARY | 2023-10-08 09:13 | External Medical Summary ---
Author Name Unknown Address Unknown Organization K01:[facility] [place] [address] [place] [address] Laboratory Report Ordering Provider Test Date Status JAYSHREETESHA 09/20/2023 15:40:18 Final Deficient: <20 ng/mL
Ins ufficient: 20-29 ng/mL
Recommended/Optimum:30-50 ng/mL

Vitamin D intoxication is rare. If suspicious of Vitamin D toxicity, evaluation of serum Calcium and PTH is recommended. Observation Date Value Abnormality Reference (Units ) Status 25-OH Vitamin D total 09/20/2023 15:40:18 44 >19 (ng/mL) Final Performing Location LABORATORY C - [address] [place] [address]
--- OUTSIDE RECORDS SUMMARY | 2023-10-08 09:13 | External Medical Summary ---
Author Name Unknown Address Unknown Organization K01:[facility] [address] [place] [address] Laboratory Report Ordering Provider Test Date Status BETTY CALDERON 09/20/2023 15:40:18 Final Observation Date Value Abnormality Reference (Units ) Status Magnesium 09/20/2023 15:40:18 1.9 1.5-2.6 (m g/dL) Final Performing Location LAB[facility]ATORY [facility] - [address] [address]
--- OUTSIDE RECORDS SUMMARY | 2023-10-08 09:13 | External Medical Summary | Summary of Care ---
Author Name Unknown Organization [facility] Address [address] [place] [address] Phone [phone] Care Team Providers Care Ios Developer Name Role Phone EsaBrayan romero Primary Care Provider Reason for Visit * Reason Onset Date Comments Appointment 09/03/2023 rheumatology Encounter Details Date Type Department Care Team (Late st Contact Info) Description 09/03/2023 Telephone Rheumatology [place] [address] [place] [address] Jack Whitmore MD [facility] [employer] [place] [address] Appointment (rheumatology) Allergies Active Allergy Reactions Criticality Noted Date Comments Allopurinol Rash 12/23/2009 Cephalosporins 03/10/2019 Unknown Immdgqlu-Kfvtepwza-Oxnfvlilyq 2018 Swelling, redness Omeprazole Rash High 07/30/2017 documented as of this encounter (statuses as of 09/05/2023) Medications Medication Sig Dispensed Refills Start Date [...] as of this encounter (statuses as of 09/05/2023) Active Problems Problem Noted Date Diagnosed Date Primary osteoarthritis of left knee 07/04/2023 Coronary artery disease invo lving [place] coronary artery of [place] heart without angina pectoris 03/23/2020 Status post [...] as of this encounter (statuses as of 09/05/2023) Resolved Problems Problem Noted Date Diagnosed Date Resolved Date Hyponatremia 03/04/2014 12/24/2015 Injury of leg, left, superficial 11/30/2011 08/19/2012 Obesity, Class II, BMI 35-39 .9, isolated (see actual BMI) 01/03/2010 08/19/2012 Overview: Per Obesity Protocol, #19 Dyslipidemia, goal to be determined 07/01/2009 10/10/2012 Overview: Per Lipid Taxonomy. 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 10/18/2007 08/18/2009 [facility] current use of ant icoagulant therapy 10/10/2007 [...] as of this encounter (statuses as of 09/05/2023) Immunizations Name Administration Dates Next Due COVID-19 [...] encounter Miscellaneous Notes * Telephone Encounter - Sammy Tuttle OSA - 09/05/2023 3:15 PM EST I spoke to Yesica at [facility]. Pt is scheduled 01/21 (first avail). * Telephone Encounter - Glenna Caro LPN - 09/03/2023 10:16 AM EST Pt is not due for Prolia until 01/04/24, please assist in scheduling. Can be with Jillian or Atul as well * Telephone Encounter - Landon Armando OSA - 09/03/2023 9:58 AM EST Yesica calling from [facility] wanting to schedule pt's next prolia and knee injection with Dr Whitmore. Please advise Yesica at [phone]. documented in this encounter Plan of Treatment Upcoming Encounters Date Type Department Care Team (Late st Contact Info) Description 01/22/2024 2:30 PM EDT Office Visit Rheumatology [address] [place] [address] Oskar Rodgers CRNP [address] [employer] [place] [address] Health Maintenance Due Date Last Done Comments Zoster Vaccines (2 of 3) 11/19/2008 09/24/2008 DTaP,Tdap,and Td Vaccines (1 - Tdap) 11/19/2011 11/18/2011, 02/03/2010 Albumin/Creatinine Ratio 08/11/2017 017, 08/25/2015, 02/08/2015, Additional history exists CKD PHOS USE SMARTSET 19121 02/13/201801/21, 08/11/2016, 08/25/2015, Additional history exists CKD HGB USE SMARTSET 43439 12/20/201812/20, 10/26/2017, 09/19/2017, Additional history exists Depression Screening 12/20/2018 12/20/2017 COVID-19 Vaccine ( season) 2023 06/10/2021, 09/13/2020, 08/16/2020 DXA Scan 03/15/2024 03/15/2022, 06/0 02/2020, 10/09/2017, Additional history exists Pneumococcal Vaccine: 65+ Years Completed 05/21/2015, 12/09/2008, 06/10/2002 VITAMIN D LEVEL ONCE IN A LIFETIME-USE SMARTSET# [id number] Completed 01/01/2023, 08/03/2021, 04/26/2018, Additional history exists [...] this encounter Medical Devices Implanted Type Area Correction Officer Reformatory Device Identifier Shelf Expiration Date Model / Serial / Lot Valve Ce Aortic 21mm 3000tfx - [id number] [place]planted:Qty : 1 [place]03/2007 [place] [facility] [place] - Non Human N/A: Heart Designer Material 03/23/2009 3000TFX-2 1 / [id number] / documented as of this encounter Advance Directives Latest Code Status on File Code Status Date Activated Date Inactivated Comments Full Code 10/03/2007 4:11 PM 10/17/2007 12:14 AM Care Teams Ios Developer Relationship Specialty Start Date End Date Brayan Gayle DO [address] [facility] [place] [address] PCP - General 09/17/18 documented as of this encounter
--- OUTSIDE RECORDS SUMMARY | 2023-10-08 09:13 | External Medical Summary | Summary of Care ---
Author Name Unknown Organization [facility] Address [address] [facility] [place] [address] Phone [phone] Care Team Providers Care Weatherization Technician Name Role Phone AnjaliBrayan onofre Primary Care Provider [phone] Reason for Visit * Reason Comments Outpatient Testing Encounter Details Date Type Department Care Team (Late st Contact Info) Description 09/20/2023 4:00 PM EST Laboratory Laboratory, [facility] [address] [facility] [place] [address] [facility] [address] [place] [address] Chronic heart failure with preserved ejection fraction (HCC); Persistent atrial fibrillation (HCC); Coronary artery disease involving [place] coronary artery of [place] heart without angina pectoris; Status post insertion of drug eluting coronary artery stent; S/P aortic valve replacement; HTN, goal below 140/90; Dyslipidemia, goal LDL below 70 Allergies Active Allergy Reactions Criticality Noted Date Comments Allopurinol Rash 12/23/2009 Cephalosporins 03/10/2019 Unknown Smpjagli-Hhnypzhtz-Lmfwkrmnbw 2018 Swelling, redness Omeprazole Rash High 07/30/2017 [...] AUG BETAMETHASONE DIPROPIONATE (DIPROLENE AF) 0.05 % creamIndications:Franky matitis Apply topically to affected area 2 times [...] the morning. 45 Tablet 3 09/21/2023 Active documented as of this encounter (statuses as of 09/20/2023) Active Problems Problem Noted Date Diagnosed Date Primary osteoarthritis of left knee 07/04/2023 Coronary artery disease invo lving [place] coronary artery of [place] heart without angina pectoris 03/23/2020 Status post [...] Taxonomy. 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 10/10/2007 [...] 0 02/18/1956 - 02/19/1992 Smokeless Tobacco: Never Comments:quit 1992 Alcohol [...] Team (Late st Contact Info) Description 09/20/2023 4:10 PM EST Imaging Radiology [address] [facility] [place] [address] Arrived 12/13/2023 3:00 PM EDT Office Visit Cardiology, [facility] [address] [facility] [place] [address] Alexandra Ortiz CRNP [address] [facility] [place] [address] 01/22/2024 2:30 PM EDT Office Visit Rheumatology [place] [id number] [place] [address] Oskar Rodgers CRNP [address] [place] [address] Pending Results Name Type Priority Associated Diagnoses Date /Time BASIC METABOLIC PANEL Lab Routine Chronic heart failure with preserved ejection fraction (HCC) Persistent atrial fibrillation (HCC) Coronary artery disease involving [place] coronary artery of [place] heart without angina pectoris Status post insertion of drug eluting coronary artery stent S/P aortic valve replacement HTN, goal below 140/90 Dyslipidemia, goal LDL below 70 09/20/2023 3:40 PM EST MAGNESIUM Lab Routine Chronic heart failure with preserved ejection fraction (HCC) Persistent atrial fibrillation (HCC) Coronary artery disease involving [place] coronary artery of [place] heart without angina pectoris Status post insertion of drug eluting coronary artery stent S/P aortic valve replacement HTN, goal below 140/90 Dyslipidemia, goal LDL below 70 09/20/2023 3:40 PM EST Health Maintenance Due Date Last Done Comments Zoster Vaccines (2 of 3) 11/19/2008 09/24/2008 DTaP,Tdap,and Td Vaccines (1 - Tdap) 11/19/2011 11/18/2011, 02/03/2010 Albumin/Creatinine Ratio 08/11/2017 017, 08/25/2015, 02/08/2015, Additional history exists CKD PHOS USE SMARTSET 54140 02/13/201801/21, 08/11/2016, 08/25/2015, Additional history exists Depression Screening 12/20/2018 12/20/2017 COVID-19 Vaccine ( season) 2023 06/10/2021, 09/13/2020, 08/16/2020 DXA Scan 03/15/2024 03/15/2022, 06/0 02/2020, 10/09/2017, Additional history exists CKD HGB USE SMARTSET 05936 09/19/2024, 12/20/2017, 10/26/2017, Additional history exists Pneumococcal Vaccine: 65+ Years Completed 05/21/2015, 12/09/2008, 06/10/2002 VITAMIN D LEVEL ONCE IN A LIFETIME-USE SMARTSET# [id number] Completed 01/01/2023, 08/03/2021, 04/26/2018, Additional history exists [...] this encounter Medical Devices Implanted Type Area Rn Review Device Identifier Shelf Expiration Date Model / Serial / Lot Valve Ce Aortic 21mm 3000tfx - [id number] Implanted:Qty : 1 on 10/03/2007 at [place] [facility] [place] Tissue - Non Human N/A: Heart [employer] 03/23/2009 3000TFX-2 1 / [id number] / documented as of this encounter Procedures Procedure Name Priority Date/Time Associated Diagnosis Comments CBC Routine 09/20/2023 3:40 PM EST Chronic heart failure with preserved ejection fraction (HCC) Persistent atrial fibrillation (HCC) Coronary artery disease involving ho[place] coronary artery of hoopa heart without angina pectoris Status post insertion of drug eluting coronary artery stent S/P aortic valve replacement HTN, goal below 140/90 Dyslipidemia, goal LDL below 70 documented in this encounter Results * (ABNORMAL) CBC (09/20/2023 3:40 PM EST) WBC 5.84 4.00 - 10.80 K/uL 09/20/2023 3:49 PM EST LABORATORY [place]10 RBC 3.57 3.85 - 5.15 M/uL 09/20/2023 3:49 PM EST LAB[facility]ATORY [place] 57-10 HGB 11.7(L) 12.0 - 15.3 g/dL 09/20/2023 3:49 PM EST LAB[facility]ATORY [place] 57-10 HCT 36.5 36.0 - 45.2 % 09/20/2023 3:49 PM EST LAB[facility]ORY [place] 57-10 MCV 102.2 81.5 - 97.5 fL 09/20/2023 3:49 PM EST LAB[facility] [place] 57-10 MCH 32.8 27.0 - 34.0 pg 09/20/2023 3:49 PM EST [facility] [place] [facility]-10 MCHC 32.1 32.0 - 36.0 g/dL 09/20/2023 3:49 PM EST LAB[facility] [place] 57-10 RDW 13.1 11.5 - 15.5 % 09/20/2023 3:49 PM EST LAB[facility]ATORY [place] 57-10 PLT 190 140 - 400 K/uL 09/20/2023 3:49 PM EST [facility] [place] [facility]10 MPV 10.5 6.6 - 11.1 fL 09/20/2023 3:49 PM EST LAB[facility]ATORY [place] 57-10 Blood Venous blood specimen / Unknown Venipuncture / Unknown 09/20/2023 3:40 PM EST 09/20/2023 3:40 PM EST Alexandra Baeza Angel AGUILERA LAB BLOOD ORDER ALEXANDRA LABORATORY [place] [facility]-10 [address] [place] [address] documented in this encounter Visit Diagnoses Diagnosis Chronic heart failure with preserved ejection fraction (HCC) Persistent atrial fibrillation (HCC) Atrial fibrillation Coronary artery disease involving hoopa coronary artery of hoopa heart without angina pectoris Status post insertion [...] 4:11 PM 10/17/2007 12:14 AM Care Teams Weatherization Technician Relationship Specialty Start Date End Date Brayan Gayle DO [address] [facility] [place] [address] PCP - General 09/17/18 documented as of this encounter
--- OUTSIDE RECORDS SUMMARY | 2023-10-08 09:13 | External Medical Summary | Summary of Care ---
Author Name Unknown Organization [facility] Address [address] [facility] [place] [address] Phone [phone] Care Team Providers Care Lathe Setup Operator Name Role Phone EsaBrayan romero Primary Care Provider [phone] Reason for Visit * Reason Onset Date Comments Test Results 09/26/2023 Encounter Details Date Type Department Care Team (Late st Contact Info) Description 09/26/2023 Telephone Cardiology, [facility] [address] [place] [address] Alexandra Ortiz CRNP [address] [place] [address] Test Results Allergies Active Allergy Reactions Criticality Noted Date Comments Allopurinol Rash 12/23/2009 Cephalosporins 03/10/2019 Unknown Vzdqrsdv-Idiuarakh-Hwvenpuwfu 2018 Swelling, redness Omeprazole Rash High 07/30/2017 documented as of this encounter (statuses as of 09/26/2023) Medications Medication Sig Dispensed Refills Start Date [...] as of this encounter (statuses as of 09/26/2023) Active Problems Problem Noted Date Diagnosed Date Primary osteoarthritis of left knee 07/04/2023 Coronary artery disease invo lving [place] coronary artery of [place] heart without angina pectoris 03/23/2020 Status post [...] as of this encounter (statuses as of 09/26/2023) Resolved Problems Problem Noted Date Diagnosed Date Resolved Date Hyponatremia 03/04/2014 12/24/2015 Injury of leg, left, superficial 11/30/2011 08/19/2012 Obesity, Class II, BMI 35-39 .9, isolated (see actual BMI) 01/03/2010 08/19/2012 Overview: Per Obesity Protocol, #19 Dyslipidemia, goal to be determined 07/01/2009 10/10/2012 Overview: Per Lipid Taxonomy. 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 Please do not call the patient's sister Kelly withany medical issues. * Telephone Encounter - Arnav Childers RN - 09/26/2023 12:31 PM EST ----- Message from WILLY Patterson sent at 09/21/2023 1:31 PM EST ----- Blood work stable. Chest x-ray showed Small bilateral pleural effusions. Per office visit yesterdaypatient was asymptomatic and noted feeling well. Will continue with Lasix as ordered. No changes will be made at this time. Patient should let us know if her swelling or shortness of breath worsens. documented in this encounter Plan of Treatment Upcoming Encounters Date Type Department Care Team (Late st Contact Info) Description 12/13/2023 3:00 PM EDT Office Visit Cardiology, [address] [place] [id number] Alexandra Ortiz CRNP [address] [place] [address] 01/22/2024 2:30 PM EDT Office Visit Rheumatology [facility] [address] [place] [address] Oskar Rodgers CRNP [address] [email or web address] [place] [address] Health Maintenance Due Date Last Done Comments Zoster Vaccines (2 of 3) 11/19/2008 09/24/2008 DTaP,Tdap,and Td Vaccines (1 - Tdap) 11/19/2011 11/18/2011, 02/03/2010 Albumin/Creatinine Ratio 08/11/2017 017, 08/25/2015, 02/08/2015, Additional history exists CKD PHOS USE SMARTSET 28190 02/13/201801/21, 08/11/2016, 08/25/2015, Additional history exists Depression Screening 12/20/2018 12/20/2017 COVID-19 Vaccine ( season) 2023 06/10/2021, 09/13/2020, 08/16/2020 DXA Scan 03/15/2024 03/15/2022, 06/0 02/2020, 10/09/2017, Additional history exists CKD HGB USE SMARTSET 59959 09/19/2024, 12/20/2017, 10/26/2017, Additional history exists Pneumococcal Vaccine: 65+ Years Completed 05/21/2015, 12/09/2008, 06/10/2002 Influenza Vaccine (FLU shot) Completed , 05/04/2021, 04/26/2018, Additional history exists VITAMIN D LEVEL ONCE IN A LIFETIME-USE SMARTSET# 61028 Completed 09/20/2023, 01/01/2023, 08/03/2021, Additional history exists [...] this encounter Medical Devices Implanted Type Area Proof Sorter Device Identifier Shelf Expiration Date Model / Serial / Lot Valve Ce Aortic 21mm [id number] - [id number] Implanted:Qty : 1 on 10/03/2007 at OR [facility] [place] Tissue - Non Human N/A: Heart Roamer 03/23/2009 3000TFX-2 [id number] / documented as of this encounter Advance Directives Latest Code Status on File Code Status Date Activated Date Inactivated Comments Full Code 10/03/2007 4:11 PM 10/17/2007 12:14 AM Care Teams Lathe Setup Operator Relationship Specialty Start Date End Date Brayan Gayle DO [address] [facility] [id number] PCP - General 09/17/18 documented as of this encounter
--- OUTSIDE RECORDS SUMMARY | 2023-10-08 09:13 | External Medical Summary | Summary of Care ---
Author Name Unknown Organization [facility] Address [address] [facility] [place] [address] Phone [phone] Care Team Providers Care Process Safety Specialist Name Role Phone Brayan Gayle DO Primary Care Provider [phone] Reason for Referral * Evaluate & Treat - Unlimited Visits (Within 10 days (routine)) - Authorized Specialty Diagnoses / Procedures Referred By Contemma t Referred To Contact CARDIAC REHAB / Cardiology Diagnoses Status post primary angioplasty with coronary stent [facility]as Davis [facility] [address] [facility] [place] [address] Referral ID Status Reason Start Date Expiration Date Visits Requested Visits Authorized [id number] Authorized Specialty Services Required 08/23/[phone] Question Answer Referral Priority Within 10 days (routine) Where should this appointment be scheduled? [facility] Cardiac Rehabilitation Modality Virtual Based Cardiac Rehab Only Encounter Details Date Type Department Care Team (Late st Contact Info) Description 08/23/2023 Orders Only Cardiac Rehab Advanced, Virtual [address] [place] [address] [place] [address] Blas Davis DO [address] [facility] [place] [phone] Status post primary angioplasty with coronary stent* Allergies Active Allergy Reactions Criticality Noted Date Comments Allopurinol Rash 12/23/2009 Cephalosporins 03/10/2019 Unknown Bnhnzqwx-Krgknvmrl-Fdgkbbroxh 2018 Swelling, redness Omeprazole Rash High 07/30/2017 documented as of this encounter (statuses as of 08/23/2023) Medications Medication Sig Dispensed Refills Start Date [...] as of this encounter (statuses as of 08/23/2023) Active Problems Problem Noted Date Diagnosed Date Primary osteoarthritis of left knee 07/04/2023 Coronary artery disease invo [place]ving [place] coronary artery of [place] heart without angina pectoris 03/23/2020 Status post [...] as of this encounter (statuses as of 08/23/2023) Resolved Problems Problem Noted Date Diagnosed Date Resolved Date Hyponatremia 03/04/2014 12/24/2015 Injury of leg, left, superficial 11/30/2011 08/19/2012 Obesity, Class II, BMI 35-39 .9, isolated (see actual BMI) 01/03/2010 08/19/2012 Overview: Per Obesity Protocol, #19 Dyslipidemia, goal to be determined 07/01/2009 10/10/2012 Overview: Per Lipid Taxonomy. 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 10/18/2007 08/18/2009 nursing home current use of ant icoagulant therapy 10/10/2007 02/19/2012 Overview: ICD-10 update of inactive term Anticoagulation management encounter 10/10/2007 08/19/2012 Examination following surgery 10/04/2007 08/19/2012 CARDIAC MURMURS NEC - aortic stenosis 10/20/1999 08/19/2012 Edema 10/20/1999 08/19/2012 Mixed dyslipidemia Overview: Per Lipid Taxonomy. Menopause 08/19/2012 Aortic valve stenosis 2012 Rosacea 08/20/2008 Overview: Resolved per Duplicate Protocol #2. Osteoporosis 02/20/2011 Supraventricular aortic stenosis 08/19/2012 Rosacea 08/20/2008 Overview: Resolved per Duplicate Protocol #2. Osteoporosis 08/19/2012 Polymyalgia rheumatica 08/19 documented as of this encounter (statuses as of 08/23/2023) Immunizations Name Administration Dates Next Due COVID-19 [...] on file documented as of this encounter Progress Notes * Massiel Beltran, ISMA[facility] - 08/23/2023 4:41 PM EST Images from the original note were not included. 08/23/2023 Good Afternoon, We would like to let you know that your patient has chosen to participate in [facility] Virtual [facility]iac Re[facility] program in partnership with [employer]. [employer] is a specialized company that specializes in providing cardiac rehab service. Our program is supervised by [facility] clinicians and includes all the oh of our in-person rehab programs, such as exercise training and heart healthy education. During the 12-week program, patients meet with an value analysis coordinator over video to work on their recovery 2-3 times per week to help support them and strengthen their heart. To begin the process of enrollment, Dr. Blas Davis [facility] Director Operations Broadcast has placed an outpatient cardiac rehabilitation referral for your patient to participate in our virtual program with [employer]. If you have any questions or concerns about this program, please contact Felisha HAGER ACS EP-C Thank you, Cardiac Rehabilitation Staff [facility] [address] [place] [address] [email or web address] documented in this encounter Plan of Treatment Upcoming Encounters Date Type Department Care Team (Late st Contact Info) Description 01/04/2024 1:20 PM EDT Office Visit Rheumatology [place] [id number] [facility] [place] [address] Jack Whitmore MD [address] [place] [address] Scheduled Referrals Name Type Priority Associated Diagnoses Orde r Schedule CARDIAC REHAB REFERRAL OP Referral Within 10 days (routine) Status post primary angioplasty with coronary stent Ordered: 08/23/2023 Health Maintenance Due Date Last Done Comments Zoster Vaccines (2 of 3) 11/19/2008 09/24/2008 DTaP,Tdap,and Td Vaccines (1 - Tdap) 11/19/2011 11/18/2011, 02/03/2010 Albumin/Creatinine Ratio 08/11/2017 017, 08/25/2015, 02/08/2015, Additional history exists CKD PHOS USE SMARTSET 74306 02/13/201801/21, 08/11/2016, 08/25/2015, Additional history exists CKD HGB USE SMARTSET 91683 12/20/201812/20, 10/26/2017, 09/19/2017, Additional history exists Depression Screening 12/20/2018 12/20/2017 COVID-19 Vaccine ( season) 2023 06/10/2021, 09/13/2020, 08/16/2020 DXA Scan 03/15/2024 03/15/2022, 06/0 02/2020, 10/09/2017, Additional history exists Pneumococcal Vaccine: 65+ Years Completed 05/21/2015, 12/09/2008, 06/10/2002 VITAMIN D LEVEL ONCE IN A LIFETIME-USE SMARTSET# [id number] Completed 01/01/2023, 08/03/2021, 04/26/2018, Additional history exists [...] this encounter Medical Devices Implanted Type Area Mechanic Device Identifier Shelf Expiration Date Model / Serial / Lot Valve Ce Aortic 21mm [id number] - [id number] Implanted:Qty : 1 on 10/03/2007 at [place] [facility] [place] Tissue - Non Human N/A: Heart [employer] 03/23/2009 [id number] / documented as of this encounter Visit Diagnoses Diagnosis Status post primary angioplasty with coronary stent- Primary Postsurgical percutaneous transluminal coronary angioplasty status documented in this encounter Advance Directives Latest Code Status on File Code Status Date Activated Date Inactivated Comments Full Code 10/03/2007 4:11 PM 10/17/2007 12:14 AM Care Teams Process Safety Specialist Relationship Specialty Start Date End Date Brayan Gayle DO [address] [facility] [place] [address] PCP - General 09/17/18 documented as of this encounter
[2023-10-08 09:27] LABS: Albumin Globulin Ratio 1.5 (0.9-2); Albumin Level 3.7 gm/dl (3.4-5.0); BUN Creatinine Ratio 18.6 (10-20); Basophils # (auto) 0.03 K/uL (0.00-0.20); Basophils % (auto) 0.5 %; Bilirubin,Total 1.4 mg/dl (0.2-1.0); Calcium 9.2 mg/dl (8.6-10.3); Creatinine Clr Calc Pharmacy 34.8 ml/min; Eosinophils # (auto) 0.29 K/uL (0.00-0.50); Eosinophils % (auto) 5.1 %; Est GFR (African American) 60.9 ml/min; Est GFR (Non-African American) 52.5 ml/min; Globulin 2.4 gm/dl (2.5-4.0); Hematocrit (blood only) 33.6 % (37.0-47.0); Hemoglobin 10.7 g/dl (12.0-16.0); Immature Granulocytes # (auto) 0.02 K/uL (0.01-0.20); Immature Granulocytes % (auto) 0.4 %; Lymphocytes # (auto) 0.67 K/uL (1.20-3.40); Lymphocytes % (auto) 11.9 %; Mean Corpuscular Hemoglobin 32.4 pg (25.0-34.0); Mean Corpuscular Hgb Conc 31.8 g/dL (32.0-36.0); Mean Corpuscular Volume 101.8 fL (80.0-100.0); Mean Platelet Volume 10.6 fL (9.4-12.4); Monocytes # (auto) 0.48 K/uL (0.11-0.59); Monocytes % (auto) 8.5 %; Neutrophils # (auto) 4.16 K/uL (1.40-6.50); Neutrophils % (auto) 73.6 %; Platelet Count 162 K/uL (130-400); Potassium 4.3 mmol/L (3.5-5.1); RDW Coefficient of Variation 13.2 % (11.5-14.5); RDW Standard Deviation 49.3 fL (36.4-46.3); Total Protein 6.1 gm/dl (6.0-8.3); White Blood Count 5.65 K/ul (4.8-10.8)
[2023-10-08 09:31] LABS: Base Excess VBG 1.9 mEq/L; HCO3 VBG 31 mmol/L; Oxygen Saturation VBG < 60.0 %; PCO2 VBG 69 mmHg (38-50); PO2 VBG 24 mmHg; pH VBG 7.26 (7.36-7.41)
[2023-10-08 09:34] LABS: Troponin I High Sensitivity 34.4 pg/ml (0-14)
[2023-10-08 09:36] LABS: INR 1.1 (0.9-1.1); Prothrombin Time 12.3 Seconds (9.0-12.0)
--- NOTE | 2023-10-08 09:53 | XRay Report ---
XR chest 1V portable HISTORY: Dyspnea COMPARISON: Chest 08/29/2023. FINDINGS: No pneumothorax. Small right and moderate left pleural effusions have increased in size. Th e heart remains enlarged. There is progressive interstitial/vascular thickening consistent with mild pulmonary edema. Patchy bibasilar densities are noted. There are poststernotomy changes. Calcificatio ns within the aortic knob. No acute fractures. IMPRESSION: 1. Interval progression of the mild pulmonary edema and bilateral pleural effusions. 2. Patchy bibasilar densities are nonspecific but favor atelectasis from the pleural effusions ACT 112: Negative or not required by law. Electronically signed by: Ludwig Braga M.D. 10/08/2023 9:52 AM
[2023-10-08] MEDS: FUROSEMIDE 40 MG/4 ML VIAL IV ONE (10:25)
--- NOTE | 2023-10-08 10:41 | History & Physical Report ---
Date of Service October 08, 2023 Assessment & Plan (1) CHF exacerbation: (2) Chronic diastolic heart failure: (3) Chronic atrial fibrillation: (4) Acute respiratory failure with hypoxia: (5) Pleural effusion: (6) CKD (chronic kidney disease), stage III: (7) Dementia: Plan: CHF exacerbation Chronic diastolic heart failure Acute respiratory failure with hypoxia Metabolic Acidosis Bilateral pleural effusions -Admit to PCU -Pleural effusions previously required thoracentesis by pulmonology on 08/29 bc of refractory effusions despite diuresisdoes not appear that the fluid was sent for diagnostics at that time-- s/p Lasix 40 mg IV in the ER today, monitor I/Os. If thoracentesis required again, would do diagnostic. Home dosing: Lasix 20 mg every Sunday - Check CTA chest - Pulm consult -Conrad catheter for strict I/Os, fluid restriction, daily weights -Patient is requiring 1L via NC currently, this appears to be a new oxygen requirement -BNP is elevated 406 -Troponin reviewed,~ 34, improved compared to previous NSTEMI, asymptomatic - CPAP HS to assist with metabolic acidosis, VBG reviewed Chronic atrial fibrillation-new diagnosis as of 08/18/2023 -Anticoagulation was previously deferred due to right upper extremity hematoma which happened during admission last time, -Recently seen by cardiology on 09/11 -EKG showing atrial fibrillation, Asymptomatic. - Home meds: metoprolol succinate 50 mg daily, lisinopril, asa 81 mg, statin therapy Aortic valve stenosis status post bioprosthetic AVR (21 mm vega Faulkner pericardial valve), 10/03/2007 -ECHO recently done during last admission showed: A-fib RVR present during echo study. Left ventricle is hyperdynamic. EF greater than 70%. Right ventricle is normal in size and function. Mild to moderate mitral regurgitation. Moderate tricuspid regurgitation. Pulmonary artery systolic pressure is estimated to be 48 mmHg. Bioprosthetic arctic valve with normal prosthetic gradients and no significant prosthetic regurgitation. Large bilateral pleural effusions are present. -Cardiology consult - If cardiology would like another echo will defer to them to order CKD stage III - Chronic, stable, trend am lab Dementia -Patient is AAO x 3 during my examination, recall specific events from previous hospitalization, monitor for worsening throughout hospital stay DVT ppx: teds, scds Lines: 2 PIV FEN/GI: HH diet, fluid restriction CODE: DNR/DNI Dispo: From home, likely to remain in the hospital x 1-2 days A total of 82 minutes were spent with greater than 50% of that time face to face with the patient, personally reviewing all current laboratories, imaging studies, past medication reconciliation, outpatient chart review, and discussion with specialists to collaborate care for the patient with attending. Please see attending documentation for corrections and/or additions. History of Present Illness Primary Care Provider: Candice Hernandez [facility] 88 yo F with bioprosthetic aortic valve replacement in 2007 at [facility]. In September 2019 she presented with heart failure and a NSTEMI and declined heart catheterization only to return two weeks later to the hospital with additional chest pain and a NSTEMI. She underwent cardiac catheterization at that point which showed a high grade stenosis in the mid LAD as well as a high grade stenosis in the right coronary artery with collaterals. CAD s/p PCI. She was recently admitted to this facility from 08/18-08/31 2023 where she was newly diagnosed with atrial fibrillation and treated for acute on chronic heart failure. At that time CXR showed large bilateral pleural effusions. She was diuresed with Lasix and discharged back to [facility] assisted living. She is also noted to have dementia in the chart, today patient is alert and oriented x 2 and answers all my questions without difficulty. She recalls specific events from her previous hospitalization. Today she presents states that she woke up this morning having a great day, and then was brought over here. She is unsure if she had low pulse ox over at the facility and that is when she is actually here. She has been ambulating with use of a walker, states that she can walk down the hallway but then becomes short of breath. She does not require any supplemental O2 at baseline. Her sister, Kelly, is here with her at bedside and supports the history. Sister is unable to answer specific medical questions, and defers information to the patients daughter, who resides in [place]. Kelly is going to call pts daughter to let her know Batsheva is being admitted. Encouraged both to call the hospital in regards to any questions. Noted again on CXR are bilateral pleural effusions. Patient is on 1L via NC with O2 sats 87% to 90% at rest in bed. Allergies Allergy/AdvReac Type Severity Reaction Status Date / Time allopurinol Allergy Unknown ON [place] Verified 08/18/23 11:23 [facility] Cephalosporins Allergy Unknown ON [place] Verified 08/18/23 11:23 [facility] gramicidin D [From Neocidin] Allergy Unknown Redness of Verified 08/18/23 11:23 Skin neomycin [From Neocidin] Allergy Unknown Redness of Verified 08/18/23 11:23 Skin polymyxin B [From Neocidin] Allergy Unknown Redness of Verified 08/18/23 11:23 Skin chocolate AdvReac Unknown Verified 08/18/23 11:28 Home Medications Medication Instructions Recorded Confirmed Type aspirin 81 mg tablet,delayed 81 mg PO QAM 06/11/18 10/08/23 History release (Lyly Low Dose Aspirin) acetaminophen 500 mg tablet 500 mg PO Q4 PRN Pain 07/29/18 10/08/23 History (Acetaminophen Extra Strength) ferrous sulfate 325 mg (65 mg 325 mg PO TID 07/29/18 10/08/23 History iron) tablet aluminum-mag hydroxide-simethicone 10 - 20 ml PO QID PRN 09/27/19 10/08/23 History 400 mg-400 mg-40 mg/5 mL oral susp HEARTBURN/INDIGESTION/GAS (Antacid-Simethicone) dimethicone-zinc oxide topical 1 applic topical DAILY PRN Skin 09/27/19 10/08/23 History cream (Rosemarie Protect Irritation (dimethicone-zinc oxide) topical cream) fexofenadine 180 mg tablet 180 mg PO DAILY 09/27/19 10/08/23 History sennosides 8.6 mg tablet 8.6 mg PO QAM Constipation 09/27/19 10/08/23 History nitroglycerin 0.4 mg sublingual 0.4 mg sublingual UD PRN chest 10/01/19 10/08/23 Rx tablet (Nitrostat) pain #25 tabs isosorbide mononitrate 30 mg 30 mg PO QAM #30 tabs 10/27/19 10/08/23 Rx tablet,extended release 24 hr amoxicillin 500 mg capsule 2,000 mg PO DAILY PRN 1 hour prior 08/04/22 10/08/23 History to dental work docosanol 10 % topical cream 1 applic topical UD PRN Cold Sores 08/04/22 10/08/23 History (Abreva) omeprazole 20 mg capsule,delayed 20 mg PO QAM 08/04/22 10/08/23 History release peg 400-propylene glycol (PF) 0.4 1 drp OPB BID 08/04/22 10/08/23 History %-0.3 % eye drops in a dropperette (Systane (PF)) psyllium seed (sugar) oral powder 1 tbsp PO DAILY 08/04/22 10/08/23 History (Metamucil [place] oral powder) trolamine salicylate 10 % topical 1 applic topical QID PRN Pain 08/04/22 10/08/23 History cream (Aspercreme) cyanocobalamin (vitamin B-12) 500 1,000 mcg (2 x 500 mcg) PO QAM #60 08/09/22 10/08/23 Rx mcg tablet tabs cholecalciferol (vitamin D3) 50 50 mcg PO QAM 08/18/23 10/08/23 History mcg (2,000 unit) tablet (Vitamin D3) diphenhydramine HCl 25 mg capsule 25 mg PO HS PRN allergies 08/18/23 10/08/23 History (Benadryl) docusate sodium 100 mg capsule 100 mg PO BID PRN Constipation #30 08/31/23 10/08/23 Rx caps atorvastatin 40 mg tablet 40 mg PO PM 10/08/23 10/08/23 History furosemide 20 mg tablet 20 mg PO . M,W,F 10/08/23 10/08/23 History metoprolol succinate 50 mg 50 mg PO QAM 10/08/23 10/08/23 History tablet,extended release 24 hr nitroglycerin 0.4 mg sublingual 0.4 mg sublingual DAILY PRN Chest 10/08/23 10/08/23 History tablet Pain Past Med/Surg History Medical History Dementia Chronic diastolic heart failure Dyslipidemia NSTEMI (non-ST elevated myocardial infarction) 09/2019 Chronic kidney disease, stage 3 (moderate) Gout Osteoarthritis Diverticular disease Cervical cancer 1997--sx History of colon polyps Aortic valve stenosis Schatzki's ring History of esophageal dilatation History of falling Polymyalgia rheumatica Hypertension Gout Status post closed fracture of right femur Surgical History History of vein stripping x2 H/O total hysterectomy History of colonoscopy H/O cataract extraction History of cardiac cath 08/20/2007 History of breast biopsy History of cholecystectomy History of esophagogastroduodenoscopy (EGD) H/O aortic valve replacement 09/2007 @ [facility] Family History Mother Rectal cancer Social History Smoking Status: Former smoker Tobacco Type: Cigarettes Second Hand Exposure: Yes; Do You Dip or Chew Tobacco: No; Tobacco Cessation Education Requested by Patient: No Hx Alcohol Use: No Hx Substance Use: No Preferred Language: Latvian Communication Ability: Effective V/Stol Landing Signal Officer Required: No Beliefs That Will Affect Care: Lutheran Current Living Situation: Group Home Current Living Situation Comment: [facility] current occupational status: retired Other Information That Helps Us Care for You: No Feels Safe at Home: Yes Safety Concerns: Feels Safe At This Time Assistive Devices: Walker Review of Systems Review of Systems: Constitutional: No fever, sweats or chills Eyes: No diplopia, no worsening or blurred vision ENT: normal hearing, no trouble swallowing Respiratory: No cough, sputum, + some dyspnea on exertion Cardiovascular: No chest pain, tightness or palpitations Abdomen: No pain, nausea, vomiting, diarrhea or constipation Musculoskeletal: No joint pain, calf pain, swelling Neurologic: No weakness, numbness/tingling, or balance problems Psychiatric: No anxiety or depression Skin: No rash or itch Physical Exam Physical Exam: General: awake, alert, no apparent distress, answers all my questions appropriately, oriented x 3, elderly white female Head: Normocephalic, atraumatic ENT: PERRL, EOMI, no pharyngeal exudate, mucous membranes moist Chest: On 1 L NC, O2 sats that is between 87 to 92% at rest in bed, no conversational dyspnea, + crackles, absent breath sounds at bases bilaterally. Nodular bony mass over one of the left posterior ribs, nonpainful, pt reports this has been present for years Cardiac: Irregularly irregular, rate controlled no murmur, no JVD, normal peripheral pulses, good capillary refill Abdominal: NABS x 4 quadrants, soft, nondistended, nontender to palpation, no rebound or guarding Extremities: Normal inspection, + trace peripheral edema, no erythema, calfs nontender to palpation Psych: Normal mood and affect Neuro: AAO x 3, strength intact bilaterally and rated 5/5, no motor deficits, speech is clear, no peripheral sensory deficits Results & Data Results & Data Vital Signs (Past 12 Hours) Vital Signs Temp Pulse Resp BP Pulse Ox O2 Del Method O2 Flow Rate 10/08/23 09:42 84 20 92 Nasal Cannula 2 10/08/23 09:30 131/73 10/08/23 09:30 80 21 89 L 10/08/23 09:00 155/92 H 10/08/23 09:00 86 25 H 98 10/08/23 08:59 167/109 H 10/08/23 08:59 98 H 18 93 10/08/23 08:54 Nasal Cannula 2 10/08/23 08:47 94 H 20 89 L 10/08/23 08:47 139/92 10/08/23 08:46 37.6 C H 86 20 139/92 91 Room Air 10/08/23 08:42 92 H 23 Laboratory Results 10/08/23 10/08/23 10/08/23 10:30 09:19 08:48 WBC RBC Hgb Hct MCV MCH MCHC RDW Std Deviation RDW Coeff of Jimmie Plt Count MPV Immature Gran % (Auto) Neut % (Auto) Lymph % (Auto) [place] % (Auto) Eos % (Auto) Baso % (Auto) Neut # (Auto) Lymph # (Auto) [place] # (Auto) Eos # (Auto) Baso # (Auto) Immature Gran # (Auto) PT INR VBG pH 7.26 L VBG pCO2 69 H VBG pO2 24 VBG HCO3 31 VBG O2 Saturation < 60.0 VBG Base Excess 1.9 Sodium Potassium Chloride Carbon Dioxide Anion Gap BUN Creatinine Est Cr Clr Drug Dosing Est GFR ( Amer) Est GFR (Non-Af Amer) BUN/Creatinine Ratio Glucose Calcium Total Bilirubin AST ALT Alkaline Phosphatase Troponin I High Sens 33.4 H B-Natriuretic Peptide Total Protein Albumin Globulin Albumin/Globulin Ratio Adenovirus (PCR) Not Detected B. pertussis DNA (PCR) Not Detected B.parapertussis DNA PCR Not Detected C. pneumoniae DNA (PCR) Not Detected Coronavirus OC43 (PCR) Not Detected Coronavirus HKU1 (PCR) Not Detected Coronavirus 229E (PCR) Not Detected SARS-CoV-2 (PCR) Not Detected Coronavirus NL63 (PCR) Not Detected Human Metapneumovir PCR Not Detected Influenza Type A (PCR) Not Detected Influenza Type B (PCR) Not Detected M. pneumoniae (PCR) Not Detected Parainfluenza 1 (PCR) Not Detected Parainfluenza 2 (PCR) Not Detected Parainfluenza 3 (PCR) Not Detected Parainfluenza 4 (PCR) Not Detected RSV (PCR) Not Detected Entero/Rhino (PCR) Not Detected 10/08/23 08:43 WBC 5.65 RBC 3.30 L Hgb 10.7 L Hct 33.6 L MCV 101.8 H MCH 32.4 MCHC 31.8 L RDW Std Deviation 49.3 H RDW Coeff of Jimmie 13.2 Plt Count 162 MPV 10.6 Immature Gran % (Auto) 0.4 Neut % (Auto) 73.6 Lymph % (Auto) 11.9 [place] % (Auto) 8.5 Eos % (Auto) 5.1 Baso % (Auto) 0.5 Neut # (Auto) 4.16 Lymph # (Auto) 0.67 L [place] # (Auto) 0.48 Eos # (Auto) 0.29 Baso # (Auto) 0.03 Immature Gran # (Auto) 0.02 PT 12.3 H INR 1.1 VBG pH VBG pCO2 VBG pO2 VBG HCO3 VBG O2 Saturation VBG Base Excess Sodium 136 Potassium 4.3 Chloride 103 Carbon Dioxide 31 Anion Gap 2 L BUN 18 Creatinine 0.97 Est Cr Clr Drug Dosing 34.8 Est GFR ( Amer) 60.9 Est GFR (Non-Af Amer) 52.5 BUN/Creatinine Ratio 18.6 Glucose 104 H Calcium 9.2 Total Bilirubin 1.4 H AST 19 ALT 19 Alkaline Phosphatase 65 Troponin I High Sens 34.4 H B-Natriuretic Peptide 406 H Total Protein 6.1 Albumin 3.7 Globulin 2.4 L Albumin/Globulin Ratio 1.5 Adenovirus (PCR) B. pertussis DNA (PCR) B.parapertussis DNA PCR C. pneumoniae DNA (PCR) Coronavirus OC43 (PCR) Coronavirus HKU1 (PCR) Coronavirus 229E (PCR) SARS-CoV-2 (PCR) Coronavirus NL63 (PCR) Human Metapneumovir PCR Influenza Type A (PCR) Influenza Type B (PCR) M. pneumoniae (PCR) Parainfluenza 1 (PCR) Parainfluenza 2 (PCR) Parainfluenza 3 (PCR) Parainfluenza 4 (PCR) RSV (PCR) Entero/Rhino (PCR) Diagnostic Findings Chest X-Ray 10/08/23 08:43 XR chest 1V portable HISTORY: Dyspnea COMPARISON: Chest 08/29/2023. FINDINGS: No pneumothorax. Small right and moderate left pleural effusions have increased in size. The heart remains enlarged. There is progressive interstitial/vascular thickening consistent with mild pulmonary edema. Patchy bibasilar densities are noted. There are poststernotomy changes. Calcifications within the aortic knob. No acute fractures. IMPRESSION: 1. Interval progression of the mild pulmonary edema and bilateral pleural effusions. 2. Patchy bibasilar densities are nonspecific but favor atelectasis from the pleural effusions ACT 112: Negative or not required by law. Electronically signed by: Ludwig Braga M.D. 10/08/2023 9:52 AM Code Status & VTE Plan Code Status DNR/DNI Supervising Physician Co-Signing Physician Notes Pt was seen and examined by myself, Saba Wakefield MD on the day of service. Care was coordinated with Yudi Daniel PA-C. 88yoF presenting with SOB from [facility]. Was recently admitted for the same. Sister present at bedside, notes she was called this morning with concern for SOB and swelling in the lower extremities Pt wearing NC on exam. States she is tired. Irregular HR, breath sounds decreased bilaterally Hgb10.7, ph 7.26 pCO2 69, HCO3 31, Glucose of 104, t bili of 1.4, trop 34.4, BNP 406, Cr 0.97 Biofire negative Chest XR with interval progression of small R pleural effusion, moderate L pleural effusion, cardiomegaly, pulmonary edema. Acute hypoxic and hypercarbic respiratory failure- in setting of CHF, oxygen supplementation prn, IV Lasix 40mg daily. Consider CPAP/Bipap use for hypercarbia. CHF- BNP 406. Echo in Jul 2023- noting diastolic HF. IV Lasix as above, chente for accurate ins and outs, consider repeating echo, consult Cardiology, appre ciate recs Pleural Effusions- Chest xray noting L>R pleural effusions. CT chest noting moderate pleural effusions, Right partially loculated. Pt s/p thoracentesis on the left by IR last admission. Pulmonology consulted, appreciate further recs. Possible UTI- UA suggestive of infection, urine Cx pending. Started on Aztreonam (cephalosporin allergy), follow culture and adjust abx as needed Emphysema- noted on chest CT, consider daily inhalers Anemia- hgb 10.7, on iron supplements. Noted low b12 level in 2022. AM iron panel, b12 and folate levels. Elevated trop- trop slightly elevated at 34.4, continue to trend, ekg, likely demand in setting of acute chf, doubt ACS A fib- rate controlled, continue home metoprolol. Not on anticoagulation currently per cardiology recs last admission Elevated Liver enzymes- t bili chronically elevated, consider US liver or further evaluation Otherwise as above. I spent a total [id number] coordinating, documenting, and providing care for this patient excluding time spent in the performance of separately billed services (1) CHF exacerbation Heart failure type: diastolic Qualified Code(s): I50.33 - Acute on chronic diastolic (congestive) heart failure
[2023-10-08 10:42] LABS: Adenovirus PCR Not Detected (NotDetected); Bordetella parapertussis PCR Not Detected (NotDetected); Bordetella pertussis PCR Not Detected (NotDetected); Chlamydia pneumoniae PCR Not Detected (NotDetected); Coronavirus 229E PCR Not Detected (NotDetected); Coronavirus CoV-2 (COVID19)PCR Not Detected (NotDetected); Coronavirus HKU1 PCR Not Detected (NotDetected); Coronavirus NL63 PCR Not Detected (NotDetected); Coronavirus OC43PCR Not Detected (NotDetected); Human Metapneumovirus PCR Not Detected (NotDetected); Influenza A PCR Not Detected (NotDetected); Influenza B PCR Not Detected (NotDetected); Mycoplasma pneumoniae PCR Not Detected (NotDetected); Parainfluenza Virus 1 PCR Not Detected (NotDetected); Parainfluenza Virus 2 PCR Not Detected (NotDetected); Parainfluenza Virus 3 PCR Not Detected (NotDetected); Parainfluenza Virus 4 PCR Not Detected (NotDetected); Respiratory Syncytial VirusPCR Not Detected (NotDetected); Rhinovirus/Enterovirus PCR Not Detected (NotDetected)
[2023-10-08] MEDS ORDERED: ONDANSETRON INJ 2 MG/ML 2 ML VIAL IV PRN (11:09)
[2023-10-08] MEDS ORDERED: ACETAMINOPHEN 325 MG TAB PO PRN (11:09)
[2023-10-08 12:06] LABS: Appearance Urine Clear (Clear); Bacteria Urine Automated Negative (Negative); Bilirubin Urine Negative (Negative); Blood Urine Trace (Negative); Cast Urine Automated 0 /lpf (0-5); Color Urine Yellow; Epithelial Cell Urine Auto >30 /lpf (0-5); Glucose Urine UA Negative (Negative); Ketones Urine Negative (Negative); Leukocyte Esterase Urine 2+ (Negative); Nitrite Urine Negative (Negative); Protein Urine Negative (Negative); RBC Urine Automated 0-4 /hpf (0-4); Specific Gravity Urine 1.008 (1.000-1.030); Urobilinogen Urine Negative (Negative); WBC Urine Automated >30 /hpf (0-5); pH Urine 6.5 (4.5-7.5)
[2023-10-08] MEDS: OPTIRAY 320 125ml IV ONE (12:17)
--- NOTE | 2023-10-08 12:38 | Cardiology Consultation ---
Date of Consultation October 08, 2023 Assessment & Plan (1) Acute on chronic diastolic HF (heart failure): (2) Pleural effusion: (3) Persistent atrial fibrillation: (4) S/P AVR: (5) CAD (coronary artery disease): Plan IMPRESSION: 88 year old female who presented to [facility], [place] with hypoxia and shortness of breath. Hypervolemic on exam possibly due to de-escalation of diuretic therapy as an outpatient. Restarted IV Lasix this admission. Responding well to diuresis. PLAN: 1. Chronic heart failure with preserved ejection fraction -Chronic HFpEF, NYHA class 3 -Hypervolemic on exam. 1. Continue diuresis with IV Lasix 40 mg daily. 2. 2g sodium restriction. Strict I&O. Daily weights. [facility]. 3. Monitor renal function and electrolytes. Potassium goal 4.0 and mag goal of 2.0. Replace as needed. 4. Will need to consider discharge on higher dose of oral Lasix, perhaps 20 to 40 mg daily pending response. 5. Consider eval for supplemental o2 prior to discharge. 2. Persistent atrial fibrillation (HCC) -Persistent atrial fibrillation, initially diagnosed, 08/18/2023 at [facility], [place]. -Telemetry revealing rate controlled atrial fibrillation in the 80s. Patient asymptomatic. 1. Restart metoprolol succinate 50 mg daily-- unsure if patient got her morning medications today. 2. Anticoagulation previously deferred due to upper extremity hematoma while previously admitted. 3. Coronary artery disease involving ramona coronary artery of ramona heart without angina pectoris 4. Status post insertion of drug eluting coronary artery stent -Coronary artery disease/NSTEMI, cardiac catheterization 10/24/2019 with findings of a 99% thrombotic occlusion of the proximal LAD, subtotal chronic ostial occlusion of RCA with distal right coronary artery filling retrograde from the left to right collaterals, s/p successful PCI/SOULEYMANE to the proximal to mid LAD. -Stable, no angina. 1. Continue aspirin 81 mg daily and statin therapy with Lipitor 40 mg daily 5. S/P aortic valve replacement -Aortic valve stenosis status post bioprosthetic AVR (21 mm vega Faulkner pericardial valve), 10/03/2007 -Stable gradients on inpatient echo dated 08/18/2023 1. Continue aspirin 81 mg daily 6. HTN, goal below 140/90 Normally well-controlled. Restart home dose medications. Unsure if patient received her medications this morning or not. Normally maintains on Imdur 30 mg daily and metoprolol succinate 50 mg daily--not on ACEi/ARB, prior history of hyperkalemia and renal dysfunction Case discussed with Dr. Yoon. Further recommendations pending his assessment. I spent a total of 40 minutes on the date of service in preparation, delivery, and documentation of the care provided to the patient excluding any time spent in the performance of separately billed services. WILLY Dominguez Department of Cardiology, [facility] This chart was completed in part utilizing Speech Voice Recognition Software. Gr ammatical errors, random word insertions, pronoun errors, and incomplete sentences are an occasional consequence of this system due to software limitations, ambient noise, and hardware issues. Any formal questions or concerns about the content, text, or information contained within the body of this dictation should be directly addressed to the provider for clarification. Supervising Physician Co-Signing Physician Notes I have reviewed the advance practitioner's documentation, and I agree with, and take responsibility for the plan of care. 88-year-old female admitted with shortness of breath. X-ray evidence of bilateral pleural effusions and vascular congestion. Left-sided thoracentesis performed with clinical improvement. Denies chest pain or shortness of breath at rest currently. VBG demonstrating hypercapnia. PE: Hypertensive, low-grade fever. SaO2 99% on 2 L General: NAD, awake and alert. Heart: Regular rhythm, 2/6 systolic ejection murmur. Lungs: Diminished breath sounds at the right base, fine Rales at the left base. No wheeze. Extremities: No edema. A/P: 88-year-old female with acute on chronic heart failure preserved ejection fraction status post left-sided thoracentesis in the ER. Continue IV furosemide 40 mg daily. Monitor fluid balance, daily weight, GFR, and electrolytes. Will likely require daily diuretic dosing when discharged (previously treated with furosemide 20 mg on Sunday, Sunday, and Sunday only). Rate controlled atrial fibrillation on telemetry. Continue beta-pernell therapy. Patient is not anticoagulated due to upper extremity hematoma during most recent hospitalization. I spent a total of 20 minutes on the date of service in preparation, delivery, and documentation of the care provided to this patient, excluding any time spent in the performance of separately billed services. History of Present Illness Attending Physician: Saba Wakefield MD History of Present Illness Today the patient presents from [facility] due to shortness of breath and hypoxia. Chest x-ray revealed bilateral pleural effusion. Worse than previous. CTA of the chest showed emphysema with CHF. Moderate bilateral pleural eff usions noted. Renal function stable. BNP mildly elevated at 406. Patient was treated with 40 mg of IV Lasix in the ED-- has Conrad in place. Currently put out approximally 1.5L. High-sensitivity troponins mildly elevated but flat. Recently admitted to [facility], [place] from 08/18 to 08/31/2019 for secondary new onset atrial fibrillation with RVR as well as acute on chronic CHF. Echocardiogram on admission showed hyperdynamic LV systolic function of 70% with moderate MR and TR. Pulmonary pressures were mildly elevated. Bioprosthetic aortic valve gradients were stable. She did have bilateral pleural effusions and underwent a right-sided thoracentesis that admission. She was also diuresed with IV Lasix. Patient was discharged home on Lasix 20 mg daily, but was reduced to 20 mg every Sunday at her penitent[facility] facility ([facility]). Upon entrance into the room patient resting comfortably in bed. Sister at bedside. Notes significant improvement in her breathing since presentation. Continues to require supplemental oxygen. Denies chest pain. No palpitations or lightheadedness. No orthopnea or PND. No lower extremity edema. Denies lightheadedness or dizziness. Denies any missed doses of her medications. Primary Insurance Special Agent: Dr. Lynne Past medical history: 1. Aortic valve stenosis status post bioprosthetic AVR (21 mm vega Faulkner pericardial valve), 10/03/2007 2. Coronary artery disease/NSTEMI, cardiac catheterization 10/24/2019 with findings of a 99% thrombotic occlusion of the proximal LAD, subtotal chronic ostial occlusion of RCA with distal right coronary artery filling retrograde from the left to right collaterals, s/p successful PCI/SOULEYMANE to the proximal to mid LAD. 3. Persistent atrial fibrillation, initially diagnosed, 08/18/2023 at [facility], [place]. a. Anticoagulation deferred due to upper extremity hematoma while admitted. 4. Hypertension 5. CKD stage 3 6. Dyslipidemia 7. Polymyalgia rheumatica with chronic anemia 8. Dementia Allergies Allergy/AdvReac Type Severity Reaction Status Date / Time allopurinol Allergy Unknown ON [facility] 08/18/23 11:23 [place] Cephalosporins Allergy Unknown ON Verified 08/18/23 11:23 [facility] [facility] gramicidin D [From Neocidin] Allergy Unknown Redness of Verified 08/18/23 11:23 Skin neomycin [From Neocidin] Allergy Unknown Redness of Verified 08/18/23 11:23 Skin polymyxin B [From Neocidin] Allergy Unknown Redness of Verified 08/18/23 11:23 Skin chocolate AdvReac Unknown Verified 08/18/23 11:28 Home Medications Medication Instructions Recorded Confirmed Type aspirin 81 mg tablet,delayed 81 mg PO QAM 06/11/18 10/08/23 History release (Lyly Low Dose Aspirin) acetaminophen 500 mg tablet 500 mg PO Q4 PRN Pain 07/29/18 10/08/23 History (Acetaminophen Extra Strength) ferrous sulfate 325 mg (65 mg 325 mg PO TID 07/29/18 10/08/23 History iron) tablet aluminum-mag hydroxide-simethicone 10 - 20 ml PO QID PRN 09/27/19 10/08/23 H istory 400 mg-400 mg-40 mg/5 mL oral susp HEARTBURN/INDIGESTION/GAS (Antacid-Simethicone) dimethicone-zinc oxide topical 1 applic topical DAILY PRN Skin 09/27/19 10/08/23 History cream (Rosemarie Protect Irritation (dimethicone-zinc oxide) topical cream) fexofenadine 180 mg tablet 180 mg PO DAILY 09/27/19 10/08/23 History sennosides 8.6 mg tablet 8.6 mg PO QAM Constipation 09/27/19 10/08/23 History nitroglycerin 0.4 mg sublingual 0.4 mg sublingual UD PRN chest 10/01/19 10/08/23 Rx tablet (Nitrostat) pain #25 tabs isosorbide mononitrate 30 mg 30 mg PO QAM #30 tabs 10/27/19 10/08/23 Rx tablet,extended release 24 hr amoxicillin 500 mg capsule 2,000 mg PO DAILY PRN 1 hour prior 08/04/22 10/08/23 History to dental work docosanol 10 % topical cream 1 applic topical UD PRN Cold Sores 08/04/22 10/08/23 History (Abreva) omeprazole 20 mg capsule,delayed 20 mg PO QAM 08/04/22 10/08/23 History release peg 400-propylene glycol (PF) 0.4 1 drp OPB BID 08/04/22 10/08/23 History %-0.3 % eye drops in a dropperette (Systane (PF)) psyllium seed (sugar) oral powder 1 tbsp PO DAILY 08/04/22 10/08/23 History (Metamucil [place] oral powder) trolamine salicylate 10 % topical 1 applic topical QID PRN Pain 08/04/22 10/08/23 History cream (Aspercreme) cyanocobalamin (vitamin B-12) 500 1,000 mcg (2 x 500 mcg) PO QAM #60 08/09/22 10/08/23 Rx mcg tablet tabs cholecalciferol (vitamin D3) 50 50 mcg PO QAM 08/18/23 10/08/23 History mcg (2,000 unit) tablet (Vitamin D3) diphenhydramine HCl 25 mg capsule 25 mg PO HS PRN allergies 08/18/23 10/08/23 History (Benadryl) docusate sodium 100 mg capsule 100 mg PO BID PRN Constipation #30 08/31/23 10/08/23 Rx caps atorvastatin 40 mg tablet 40 mg PO PM 10/08/23 10/08/23 History furosemide 20 mg tablet 20 mg PO . M,W,F 10/08/23 10/08/23 History metoprolol succinate 50 mg 50 mg PO QAM 10/08/23 10/08/23 History tablet,extended release 24 hr nitroglycerin 0.4 mg sublingual 0.4 mg sublingual DAILY PRN Chest 10/08/23 10/08/23 History tablet Pain Patient History Medical History Dementia Chronic diastolic heart failure Dyslipidemia NSTEMI (non-ST elevated myocardial infarction) 09/2019 Chronic kidney disease, stage 3 (moderate) Gout Osteoarthritis Diverticular disease Cervical cancer 1997--sx History of colon polyps Aortic valve stenosis Schatzki's ring History of esophageal dilatation History of falling Polymyalgia rheumatica Hypertension Gout Status post closed fracture of right femur Surgical History History of vein stripping x2 H/O total hysterectomy History of colonoscopy H/O cataract extraction History of cardiac cath 08/20/2007 History of breast biopsy History of cholecystectomy History of esophagogastroduodenoscopy (EGD) H/O aortic valve replacement 09/2007 @ [facility] [place] Family History Mother Rectal cancer Social History Smoking Status: Former smoker Tobacco Type: Cigarettes Second Hand Exposure: Yes; Do You Dip or Chew Tobacco: No; Tobacco Cessation Education Requested by Patient: No Hx Alcohol Use: No Hx Substance Use: No Preferred Language: Sami Communication Ability: Effective Bb Shot Packer Required: No Beliefs That Will Affect Care: Congregational Current Living Situation: Senior Care Current Living Situation Comment: [facility] current occupational status: retired Other Information That Helps Us Care for You: No Feels Safe at Home: Yes Safety Concerns: Feels Safe At This Time Assistive Devices: Walker Review of Systems Review of Systems: All systems reviewed & are unremarkable except as noted in HPI & below Physical Exam Constitutional: + frail appearing; no acute distress Neck: normal visual inspection and trachea midline Respiratory: normal respiratory effort; no respiratory distress and no cough Auscultation: + rales; no rhonchi and no wheezes Cardiovascular: Rate/Rhythm: regular rate and + irregularly irregular Heart Sounds: normal S1 and normal S2 Vessels: no JVD Extremities: + edema (trace BL nonpitting, compression socks in place ) Gastrointestinal (Abdomen): normal bowel sounds, soft, nontender, no hepatosplenomegaly Results & Data Vital Signs (Past 12 Hours) Vital Signs Temp Pulse Pulse Resp BP BP Pulse Ox 10/08/23 11:44 92 H 20 172/116 H 97 10/08/23 09:42 84 20 92 10/08/23 09:30 131/73 10/08/23 09:30 80 21 89 L 10/08/23 09:00 155/92 H 10/08/23 09:00 86 25 H 98 10/08/23 08:59 167/109 H 10/08/23 08:59 98 H 18 93 10/08/23 08:54 10/08/23 08:47 94 H 20 89 L 10/08/23 08:47 139/92 10/08/23 08:46 37.6 C H 86 20 139/92 91 10/08/23 08:42 92 H 23 O2 Del Method O2 Flow Rate 10/08/23 11:44 Nasal Cannula 2 10/08/23 09:42 Nasal Cannula 2 10/08/23 09:30 10/08/23 09:30 10/08/23 09:00 10/08/23 09:00 10/08/23 08:59 10/08/23 08:59 10/08/23 08:54 Nasal Cannula 2 10/08/23 08:47 10/08/23 08:47 10/08/23 08:46 Room Air 10/08/23 08:42 Laboratory Results Cardiac Enzymes 10/08/23 10/08/23 Range/Units 08:43 10:30 AST 19 (13-39) U/L Troponin I High Sens 34.4 H 33.4 H (0-14) pg/ml B-Natriuretic Peptide 406 H (0-100) pg/ml Coagulation 10/08/23 Range/Units 08:43 PT 12.3 H (9.0-12.0) Seconds B-Natriuretic Peptide 406 H (0-100) pg/ml CBC 10/08/23 Range/Units 08:43 WBC 5.65 (4.8-10.8) K/ul RBC 3.30 L (4.20-5.40) M/uL Hgb 10.7 L (12.0-16.0) g/dl Hct 33.6 L (37.0-47.0) % Plt Count 162 (130-400) K/uL Neut # (Auto) 4.16 (1.40-6.50) K/uL Lymph # (Auto) 0.67 L (1.20-3.40) K/uL [place] # (Auto) 0.48 (0.11-0.59) K/uL Eos # (Auto) 0.29 (0.00-0.50) K/uL Baso # (Auto) 0.03 (0.00-0.20) K/uL Comprehensive Metabolic Panel 10/08/23 Range/Units 08:43 Sodium 136 (136-145) mmol/L Potassium 4.3 (3.5-5.1) mmol/L Chloride 103 (98-107) mmol/L Carbon Dioxide 31 (21-32) mmol/L BUN 18 (6-23) mg/dl Creatinine 0.97 (0.6-1.2) mg/dl Glucose 104 H (70-99(Fasting)) mg/dl Calcium 9.2 (8.6-10.3) mg/dl AST 19 (13-39) U/L ALT 19 (7-52) U/L Alkaline Phosphatase 65 (34-104) U/L Total Protein 6.1 (6.0-8.3) gm/dl Albumin 3.7 (3.4-5.0) gm/dl Intake and Output 10/07/23 10/08/23 10/08/23 22:59 06:59 14:59 Output Total 1000 / 1000 Balance -1000 / -1000 Output: Urine 200 / 200 Urine Amount (Catheter) 800 / 800 Conrad/Indwelling 800 / 800 Other: Weight 54 kg Weight Measurement Method Built in [facility] Patient Weight 10/09/23 06:59 Weight 54 kg
--- NOTE | 2023-10-08 12:44 | CT Scan Report ---
CT ANGIOGRAM OF THE CHEST CLINICAL HISTORY: Dyspnea COMPARISON STUDY: Chest x-ray dated 10/08/2023. Chest CT dated 09/28/2019. TECHNIQUE: Following the IV administration of 118 cc of Optiray 320, CT angiogram of the chest was pe rformed from the upper abdomen to the thoracic inlet utilizing the pulmonary embolus protocol. Images are reviewed in the axial, sagittal, and coronal planes. 3-D MIPS images are created and assessed. I V contrast was administered without complication. A dose lowering technique was utilized adhering to the principles of ALARA. CT DOSE: 410.43 mGy.cm FINDINGS: Thyroid: Normal in size and heterogeneous in attenuation. Thoracic aorta: There is advanced atherosclerotic calcification of the thoracic rib. 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 The remainder of the thoracic aorta is normal in caliber comment heart demonstrates standard 3-vessel anatomy. The thoracic aorta is well-opacified. Pulmonary vasculature: The main pulmonary arteries are dilated indicating pulmonary artery hypertensi on. There are no filling defects identified in main, lobar, or proximal segmental pulmonary branches to suggest pulmonary embolus. There is mixing artifact within the segmental pulmonary arteries. The d istal segmental and subsegmental vessels are not well opacified. Heart: The patient is status post midline sternotomy. The heart is enlarged and without pericardial e ffusion. The coronary arteries are densely calcified. Lungs and pleural spaces: Evaluation of the lung parenchyma is degraded by motion artifact. Emphysema tous change is noted. Interlobular septal thickening is seen throughout both lungs. There are moderat e pleural effusions with dependent consolidation. The right pleural effusion is at least partially lo culated. The trachea and central airways are clear. Mediastinum: There is no mediastinal lymphadenopathy. [place]: Clear. Axillae: Prominent bilateral axillary lymph nodes are again noted. These measure up to 9 mm short axi s. Upper abdomen: Partially visualized upper abdominal viscera is within normal limits. Skeletal structures: The skeletal structures are osteopenic. Degenerative change and hyperkyphosis is seen in the spine. There are chronic/healed bilateral rib fractures. No lytic or blastic bony lesion s are seen. Soft tissues: The patient is cachectic. IMPRESSION: 1. There is no evidence of pulmonary embolus in the main, lobar, or proximal segmental pulmonary praneeth courtney. 2. Cardiomegaly and emphysema with evidence of congestive failure. 3. Moderate pleural effusions with bibasilar consolidation. Radiographic followup to resolution is re commended. 4. Additional findings as above. ACT 112: Negative or not required by law. Electronically signed by: Don Fallon M.D. 10/08/2023 12:42 PM
--- NOTE | 2023-10-08 14:42 | Pulmonary Consultation ---
Date of Consultation October 08, 2023 Assessment & Plan (1) Pleural effusion: (2) Acute respiratory failure with hypoxia: Plan Impression: 88-year-old female with dementia and diastolic heart failure admitted with shortness of breath and bilateral pleural effusions. Venous blood gas did show some evidence of hypercarbia however the patient is awake alert conversant and in no distress currently. Echocardiogram showed EF of 70% with moderate MR and TR with elevation of pulmonary pressures. Bioprosthetic aortic valve gradients were stable. Recommendations: 1. Pleural effusions: Bilateral nature would argue for diastolic heart failure. The fluid does not appear to have been characterized with last tap so we will repeat thoracentesis on the left today and send fluid for routine microbiologic and cytologic analysis although I suspect this will be transudative in etiology. Long-term management will require diuretics, blood pressure control (blood pressure less than 125/75). Cardiology consultation has been obtained. 2. Hypoxemic respiratory failure: Secondary to #1. Will see what her oxygen requirement is after the thoracentesis and with diuresis. May require oxygen to go home with. 3. Blood gas showing mild hypercarbia. No indication for noninvasive positive pressure ventilation given the patient's clinical stability and underlying dementia. In addition the patient is DNR/DNI and I do not think she would be a great candidate for long-term nocturnal positive airway pressure ventilation. Will follow-up with pleural fluid studies and with the patient's post procedure chest x-ray. Anticipate she should be able to do be dismissed from the hospital in relatively short order with outpatient follow-up with her primary care provider. The above recommendations and plan were discussed with the patient as well as with her sister at bedside. Questions were answered to the best my ability. History of Present Illness Attending Physician: Saba Wakefield MD History of Present Illness By hospitalist to evaluate this patient admitted with shortness of breath and bilateral pleural effusions. History is obtained from discussion with the patient as well as with her sister at bedside and reviewed electronic medical record. Patient is an 88-year-old female who resides at a personal long-term. She has a history of diastolic heart failure and was admitted about a month ago with pleural effusion which was tapped by radiology. She had her Lasix decreased and presented to the emergency room today with increasing shortness of breath. CT angiogram demonstrated moderate-sized bilateral pleural effusions. The patient was admitted to the hospitalist service after receiving Lasix and having a Conrad catheter placed. She is significantly hypertensive. Patient denies fevers chills night sweats or other constitutional symptoms. She does not report chest pain or palpitations. She has noted lower extremity edema. Reportedly, she has some dietary indiscretion at home regarding her salt intake. Allergies Allergy/AdvReac Type Severity Reaction Status Date / Time allopurinol Allergy Unknown ON [place]EN[place] Verified 08/18/23 11:23 [facility] Cephalosporins Allergy Unknown ON [place]OT Verified 08/18/23 11:23 [facility] gramicidin D [From Neocidin] Allergy Unknown Redness of Verified 08/18/23 11:23 Skin neomycin [From Neocidin] Allergy Unknown Redness of Verified 08/18/23 11:23 Skin polymyxin B [From Neocidin] Allergy Unknown Redness of Verified 08/18/23 11:23 Skin chocolate AdvReac Unknown Verified 08/18/23 11:28 Home Medications Medication Instructions Recorded Confirmed Type aspirin 81 mg tablet,delayed 81 mg PO QAM 06/11/18 10/08/23 History release (Lyly Low Dose Aspirin) acetaminophen 500 mg tablet 500 mg PO Q4 PRN Pain 07/29/18 10/08/23 History (Acetaminophen Extra Strength) ferrous sulfate 325 mg (65 mg 325 mg PO TID 07/29/18 10/08/23 History iron) tablet aluminum-mag hydroxide-simethicone 10 - 20 ml PO QID PRN 09/27/19 10/08/23 History 400 mg-400 mg-40 mg/5 mL oral susp HEARTBURN/INDIGESTION/GAS (Antacid-Simethicone) dimethicone-zinc oxide topical 1 applic topical DAILY PRN Skin 09/27/19 10/08/23 History cream (Rosemarie Protect Irritation (dimethicone-zinc oxide) topical cream) fexofenadine 180 mg tablet 180 mg PO DAILY 09/27/19 10/08/23 History sennosides 8.6 mg tablet 8.6 mg PO QAM Constipation 09/27/19 10/08/23 History nitroglycerin 0.4 mg sublingual 0.4 mg sublingual UD PRN chest 10/01/19 10/08/23 Rx tablet (Nitrostat) pain #25 tabs isosorbide mononitrate 30 mg 30 mg PO QAM #30 tabs 10/27/19 10/08/23 Rx tablet,extended release 24 hr amoxicillin 500 mg capsule 2,000 mg PO DAILY PRN 1 hour prior 08/04/22 10/08/23 History to dental work docosanol 10 % topical cream 1 applic topical UD PRN Cold Sores 08/04/22 10/08/23 History (Abreva) omeprazole 20 mg capsule,delayed 20 mg PO QAM 08/04/22 10/08/23 History release peg 400-propylene glycol (PF) 0.4 1 drp OPB BID 08/04/22 10/08/23 History %-0.3 % eye drops in a dropperette (Systane (PF)) psyllium seed (sugar) oral powder 1 tbsp PO DAILY 08/04/22 10/08/23 History (Metamucil [place] oral powder) trolamine salicylate 10 % topical 1 applic topical QID PRN Pain 08/04/22 10/08/23 History cream (Aspercreme) cyanocobalamin (vitamin B-12) 500 1,000 mcg (2 x 500 mcg) PO QAM #60 08/09/22 10/08/23 Rx mcg tablet tabs cholecalciferol (vitamin D3) 50 50 mcg PO QAM 08/18/23 10/08/23 History mcg (2,000 unit) tablet (Vitamin D3) diphenhydramine HCl 25 mg capsule 25 mg PO HS PRN allergies 08/18/23 10/08/23 History (Benadryl) docusate sodium 100 mg capsule 100 mg PO BID PRN Constipation #30 08/31/23 10/08/23 Rx caps atorvastatin 40 mg tablet 40 mg PO PM 10/08/23 10/08/23 History furosemide 20 mg tablet 20 mg PO . M,W,F 10/08/23 10/08/23 History metoprolol succinate 50 mg 50 mg PO QAM 10/08/23 10/08/23 History tablet,extended release 24 hr nitroglycerin 0.4 mg sublingual 0.4 mg sublingual DAILY PRN Chest 10/08/23 10/08/23 History tablet Pain Patient History Medical History Dementia Chronic diastolic heart failure Dyslipidemia NSTEMI (non-ST elevated myocardial infarction) 09/2019 Chronic kidney disease, stage 3 (moderate) Gout Osteoarthritis Diverticular disease Cervical cancer 1997--sx History of colon polyps Aortic valve stenosis Schatzki's ring History of esophageal dilatation History of falling Polymyalgia rheumatica Hypertension Gout Status post closed fracture of right femur Surgical History History of vein stripping x2 H/O total hysterectomy History of colonoscopy H/O cataract extraction History of cardiac cath 08/20/2007 History of breast biopsy History of cholecystectomy History of esophagogastroduodenoscopy (EGD) H/O aortic valve replacement 09/2007 @ [facility] Family History Mother Rectal cancer Social History Smoking Status: Former smoker Tobacco Type: Cigarettes Second Hand Exposure: No; Do You Dip or Chew Tobacco: No; Hx Alcohol Use: Yes Alcohol type: beer Hx Substance Use: No Preferred Language: Polish Communication Ability: Effective Bilingual Inside Sales Representative Required: No Beliefs That Will Affect Care: None Current Living Situation: Alone Current Living Situation Comment: [facility] current occupational status: retired Feels Safe at Home: Yes Assistive Devices: Walker Review of Systems Review of Systems: Please refer to admission H&P. No additions or deletions Physical Exam Constitutional: WD/WN, vitals as above Neck: trachea midline, no thyromegaly Respiratory: no respiratory distress, no labored breathing, no cough and not tachypneic Auscultation: + diminished lung sounds Decreased breath sounds bilateral bases with dullness to percussion Cardiovascular: RRR, no murmur, no edema Gastrointestinal (Abdomen): normal bowel sounds, soft, nontender, no hepatosp lenomegaly Musculoskeletal: Extremities: extremities normal to inspection Skin: no rashes, warm and dry Neurologic: Nonfocal exam Lymphatic: no cervical lymphadenopathy Results & Data Results & Data Vital Signs (Past 12 Hours) Vital Signs Temp Pulse Pulse Resp BP BP Pulse Ox 10/08/23 11:44 92 H 20 172/116 H 97 10/08/23 09:42 84 20 92 10/08/23 09:30 131/73 03/18/24 09:30 80 21 89 L 10/08/23 09:00 155/92 H 10/08/23 09:00 86 25 H 98 10/08/23 08:59 167/109 H 10/08/23 08:59 98 H 18 93 10/08/23 08:54 10/08/23 08:47 94 H 20 89 L 10/08/23 08:47 139/92 10/08/23 08:46 37.6 C H 86 20 139/92 91 10/08/23 08:42 92 H 23 O2 Del Method O2 Flow Rate 10/08/23 11:44 Nasal Cannula 2 10/08/23 09:42 Nasal Cannula 2 10/08/23 09:30 10/08/23 09:30 10/08/23 09:00 10/08/23 09:00 10/08/23 08:59 10/08/23 08:59 10/08/23 08:54 Nasal Cannula 2 10/08/23 08:47 10/08/23 08:47 10/08/23 08:46 Room Air 10/08/23 08:42 Critical Care Results & Data Vital Signs (Past 12 Hours) Vital Signs Temp Pulse Pulse Resp BP BP Pulse Ox 10/08/23 11:44 92 H 20 172/116 H 97 10/08/23 09:42 84 20 92 10/08/23 09:30 131/73 10/08/23 09:30 80 21 89 L 10/08/23 09:00 155/92 H 10/08/23 09:00 86 25 H 98 10/08/23 08:59 167/109 H 10/08/23 08:59 98 H 18 93 10/08/23 08:54 10/08/23 08:47 94 H 20 89 L 10/08/23 08:47 139/92 10/08/23 08:46 37.6 C H 86 20 139/92 91 10/08/23 08:42 92 H 23 O2 Del Method O2 Flow Rate 10/08/23 11:44 Nasal Cannula 2 10/08/23 09:42 Nasal Cannula 2 10/08/23 09:30 10/08/23 09:30 10/08/23 09:00 10/08/23 09:00 10/08/23 08:59 10/08/23 08:59 10/08/23 08:54 Nasal Cannula 2 10/08/23 08:47 10/08/23 08:47 10/08/23 08:46 Room Air 10/08/23 08:42 Lab & Micro Results (Past 24 Hours) RBC 3.30 M/uL (4.20-5.40) L 10/08/23 WBC 5.65 K/ul (4.8-10.8) 10/08/23 Hgb 10.7 g/dl (12.0-16.0) L 10/08/23 Hct 33.6 % (37.0-47.0) L 10/08/23 MCV 101.8 fL (80.0-100.0) H 10/08/23 MCH 32.4 pg (25.0-34.0) 10/08/23 MCHC 31.8 g/dL (32.0-36.0) L 10/08/23 RDW Standard Deviation 49.3 fL (36.4-46.3) H 10/08/23 RDW Coefficient of Variation 13.2 % (11.5-14.5) 10/08/23 Plt Count 162 K/uL (130-400) 10/08/23 MPV 10.6 fL (9.4-12.4) 10/08/23 Neutrophils (%) (Auto) 73.6 % 10/08/23 Lymphocytes (%) (Auto) 11.9 % 10/08/23 Monocytes # (Auto) 0.48 K/uL (0.11-0.59) 10/08/23 Eosinophils # (Auto) 0.29 K/uL (0.00-0.50) 10/08/23 Immature Granulocyte % (Auto) 0.4 % 10/08/23 Neutrophils # (Auto) 4.16 K/uL (1.40-6.50) 10/08/23 Lymphocytes # (Auto) 0.67 K/uL (1.20-3.40) L 10/08/23 Monocytes # (Auto) 0.48 K/uL (0.11-0.59) 10/08/23 Eosinophils # (Auto) 0.29 K/uL (0.00-0.50) 10/08/23 Basophils # (Auto) 0.03 K/uL (0.00-0.20) 10/08/23 Immature Granulocyte # (Auto) 0.02 K/uL (0.01-0.20) 4 Na 136 mmol/L (136-145) 10/08/23 K 4.3 mmol/L (3.5-5.1) 10/08/23 Cl 103 mmol/L (98-107) 10/08/23 CO2 31 mmol/L (21-32) 10/08/23 Anion Gap 2 (3-11) L 10/08/23 BUN 18 mg/dl (6-23) 10/08/23 Creatinine 0.97 mg/dl (0.6-1.2) 10/08/23 Estimated GFR ( Amer) 60.9 ml/min 10/08/23 Estimated GFR (Non-Af Amer) 52.5 ml/min 10/08/23 BUN/Creatinine Ratio 18.6 (10-20) 10/08/23 Glu 104 mg/dl (70-99(Fasting)) H 10/08/23 Ca 9.2 mg/dl (8.6-10.3) 10/08/23 Total Bilirubin 1.4 mg/dl (0.2-1.0) H 10/08/23 AST 19 U/L (13-39) 10/08/23 ALT 19 U/L (7-52) 10/08/23 Alkaline Phosphatase 65 U/L (34-104) 10/08/23 TP 6.1 gm/dl (6.0-8.3) 10/08/23 Albumin 3.7 gm/dl (3.4-5.0) 10/08/23 Globulin 2.4 gm/dl (2.5-4.0) L 10/08/23 Albumin/Globulin Ratio 1.5 (0.9-2) 10/08/23 Calcium Level 9.2 mg/dl (8.6-10.3) 10/08/23 08:43 Prothromb Time International Ratio 1.1 (0.9-1.1) 10/08/23 08:4 3 Venous Blood pH 7.26 (7.36-7.41) L 10/08/23 09:19 Venous Blood Partial Pressure CO2 69 mmHg (38-50) H 10/08/23 09 :19 Venous Blood Partial Pressure O2 24 mmHg 10/08/23 09:19 Venous Blood HCO3 31 mmol/L 10/08/23 09:19 Venous Blood Base Excess 1.9 mEq/L 10/08/23 09:19 Venous Blood Oxygen Saturation < 60.0 % 10/08/23 09:19 Diagnostic Findings (Past 24 Hours) Chest X-Ray 10/08/23 08:43 XR chest 1V portable HISTORY: Dyspnea COMPARISON: Chest 08/29/2023. FINDINGS: No pneumothorax. Small right and moderate left pleural effusions have increased in size. The heart remains enlarged. There is progressive interstitial/vascular thickening consistent with mild pulmonary edema. Patchy bibasilar densities are noted. There are poststernotomy changes. Calcifications within the aortic knob. No acute fractures. IMPRESSION: 1. Interval progression of the mild pulmonary edema and bilateral pleural effusions. 2. Patchy bibasilar densities are nonspecific but favor atelectasis from the pleural effusions ACT 112: Negative or not required by law. Electronically signed by: Ludwig Braga M.D. 10/08/2023 9:52 AM Chest CTA 10/08/23 11:58 CT ANGIOGRAM OF THE CHEST CLINICAL HISTORY: Dyspnea COMPARISON STUDY: Chest x-ray dated 10/08/2023. Chest CT dated 09/28/2019. TECHNIQUE: Following the IV administration of 118 cc of Optiray 320, CT angiogram of the chest was performed from the upper abdomen to the thoracic inlet utilizing the pulmonary embolus protocol. Images are reviewed in the axial, sagittal, and coronal planes. 3-D MIPS images are created and assessed. IV contrast was administered without complication. A dose lowering technique was utilized adhering to the principles of ALARA. CT DOSE: 410.43 mGy.cm FINDINGS: Thyroid: Normal in size and heterogeneous in attenuation. Thoracic aorta: There is advanced atherosclerotic calcification of the thoracic rib. There is aneurysmal dilatation of the ascending thoracic aorta which measures up to 4.4 cm in diameter. The remainder of the thoracic aorta is normal in caliber comment heart demonstrates standard 3-vessel anatomy. The thoracic aorta is well-opacified. Pulmonary vasculature: The main pulmonary arteries are dilated indicating pulmonary artery hypertension. There are no filling defects identified in main, lobar, or proximal segmental pulmonary branches to suggest pulmonary embolus. There is mixing artifact within the segmental pulmonary arteries. The distal segmental and subsegmental vessels are not well opacified. Heart: The patient is status post midline sternotomy. The heart is enlarged and without pericardial effusion. The coronary arteries are densely calcified. Lungs and pleural spaces: Evaluation of the lung parenchyma is degraded by motion artifact. Emphysematous change is noted. Interlobular septal thickening is seen throughout both lungs. There are moderate pleural effusions with dependent consolidation. The right pleural effusion is at least partially loculated. The trachea and central airways are clear. Mediastinum: There is no mediastinal lymphadenopathy. [place]: Clear. Axillae: Prominent bilateral axillary lymph nodes are again noted. These measure up to 9 mm short axis. Upper abdomen: Partially visualized upper abdominal viscera is within normal limits. Skeletal structures: The skeletal structures are osteopenic. Degenerative change and hyperkyphosis is seen in the spine. There are chronic/healed bilateral rib fractures. No lytic or blastic bony lesions are seen. Soft tissues: The patient is cachectic. IMPRESSION: 1. There is no evidence of pulmonary embolus in the main, lobar, or proximal segmental pulmonary arteries. 2. Cardiomegaly and emphysema with evidence of congestive failure. 3. Moderate pleural effusions with bibasilar consolidation. Radiographic followup to resolution is recommended. 4. Additional findings as above. ACT 112: Negative or not required by law. Electronically signed by: Don Fallon M.D. 10/08/2023 12:42 PM I & O Totals 24 Hours 10/07/23 10/08/23 10/09/23 06:59 06:59 06:59 Output Total 2450 / 2450 Balance -2450 / -2450 Cumulative 10/08/23 06:53 thru 10/08/23 13:13 Output Total 2450 Balance -2450 RT Ventilator Mngmt (Last Documented) Ventilator Ordered Settings Respiratory Rate 20 10/08/23 11:44 Ventilator - PT Measurements Respiratory Rate 20 PG Care Time/CCT Total # of Minutes Spent Total Time Spent with Patient: Total time spent is greater than 50% in coordination of care (as documented) at patient's floor/unit and/or counseling patient: Coding Level of Care Code 30246 INT INP/OBS CARE 3/75MIN Diagnoses Pleural effusion J90 Acute respiratory failure with hypoxia J96.01
--- NOTE | 2023-10-08 14:44 | Procedure Note ---
Procedure Note Date of Service October 08, 2023 Note Procedure: Diagnostic therapeutic ultrasound-guided catheter thoracentesis, left Cardiac Cath Lab Manager: Dr. Arnav Pimentel Indication: Pleural effusion Consent: Signed by patient and verified with timeout prior to procedure Anesthesia: 8 mL's 1% lidocaine without epinephrine local. Procedure: Consent was verified and timeout performed. Appropriate imaging studies were reviewed prior to the procedure. Patient was placed in a seated position and limited thoracic ultrasound was performed of the bilateral chest. Moderate- sized bilateral effusions were identified. Site appropriate for thoracentesis was selected on the left. The skin was prepped and draped in normal sterile fashion. Lidocaine was used for local analgesia. Fluid was aspirated via the finder needle. A small skin meliza was made with the scalpel and the catheter over the needle apparatus was advanced over the rib into the pleural space. Using the syringe one-way valve system, a total of 1400 mL's of portia slightly cloudy fluid was removed. Procedure was terminated due to patient coughing. The catheter was removed and observed to be intact. A sterile dressing was applied. Post procedure chest x-ray was ordered. Fluid was sent for cytology, cell count differential, Gram stain and culture, AFB cultures, LDH, pH, glucose, total protein. The patient tolerated the procedure well without obvious complication Coding CPT Codes Pulmonary/Thoracic - Pulmonary and Thoracic: 71840 Thoracentesis w imaging ([id number]) [facility] Procedure Codes (Charges) Pulmonary/Thoracic Procedure 1: Pulmonary and Thoracic: 75368 Thoracentesis w imaging
--- NOTE | 2023-10-08 14:58 | XRay Report ---
SINGLE VIEW CHEST CLINICAL HISTORY: Status post thoracentesis FINDINGS: 2 AP, portable, upright chest radiographs are compared to chest x-ray and chest CT performe d earlier the same day 10/08/2023. The patient is status post midline sternotomy and cardiac valve christel lurdes. The heart is enlarged noting atherosclerotic calcification of the thoracic aorta. There is pulm onary vascular congestion. Emphysema and chronic interstitial thickening is similar to previous. Ther e is a residual right pleural effusion and bibasilar consolidation. There is trace left apical pneumo thorax. There may also be pneumothorax at the left lung base. The skeletal structures are osteopenic. The bony thorax is grossly intact. Arthritic change is seen in the shoulders. IMPRESSION: 1. Trace left apical pneumothorax. There may also be pneumothorax at the left lung base. 2. Cardiomegaly and emphysema with evidence of congestive failure. 3. Small right residual pleural effusion Bibasilar consolidation ACT 112: Negative or not required by law. Electronically signed by: Don Fallon M.D. 10/08/2023 2:57 PM
[2023-10-08 15:25] LABS: Glucose Pleural Fluid 108 mg/dl; LDH Pleural Fluid 74 U/L; Total Protein Pleural Fluid < 3.0 gm/dl
[2023-10-08 15:53] LABS: Appearance Pleural Fluid Clear; Color Pleural Fluid Yellow; RBC Pleural Fluid Auto 2000 /uL; Source Pleural Fluid Left Lung; WBC Pleural Fluid Auto 921 /uL
[2023-10-08] MEDS ORDERED: DOCUSATE SODIUM 100 MG CAP PO PRN (16:25)
[2023-10-08] MEDS ORDERED: AZTREONAM 1,000 MG in DEXTROSE 5% MINI-B 100 ML IV SCH (17:00)
[2023-10-08] MEDS: AZTREONAM 2,000 MG in DEXTROSE 5% MINI-B 100 ML IV SCH (17:30)
--- NOTE | 2023-10-08 19:07 | XRay Report ---
XR chest 1V portable CLINICAL HISTORY: ptx TECHNIQUE: Single frontal radiograph of the chest was obtained. Comparison: Comparison is made to chest radiograph 10/08/2023 FINDINGS: Median sternotomy wires are unchanged. Cardiomegaly is noted. The aortic arch is calcified. Bilateral lower lung predominant airspace opacities are seen. Moderate right and small left pleural effusions. There is a small pneumothorax in the left apex, essentially unchanged from prior exam. IMPRESSION: No significant change in left apical pneumothorax. Bilateral pleural effusions are again seen. Cardio megaly is noted. Bilateral airspace opacities may reflect atelectasis with or without superimposed as piration/pneumonia. ACT 112: Negative or not required by law. Electronically signed by: Socrates Mcclelland M.D. 10/08/2023 7:05 PM
[2023-10-08] MEDS: ATORVASTATIN 40 MG TAB PO SCH (20:18)
[2023-10-08] MEDS: FERROUS SULFATE 325 MG TAB PO SCH (20:18)
[2023-10-08] MEDS: ARTIFICIAL TEARS OP SCH (20:18)
[2023-10-09 06:36] LABS: Hematocrit (blood only) 33.6 % (37.0-47.0); Hemoglobin 10.7 g/dl (12.0-16.0); Mean Corpuscular Hemoglobin 32.1 pg (25.0-34.0); Mean Corpuscular Hgb Conc 31.8 g/dL (32.0-36.0); Mean Corpuscular Volume 100.9 fL (80.0-100.0); Mean Platelet Volume 10.6 fL (9.4-12.4); Platelet Count 154 K/uL (130-400); RDW Standard Deviation 48.4 fL (36.4-46.3); Red Blood Count 3.33 M/uL (4.20-5.40); White Blood Count 6.67 K/ul (4.8-10.8)
[2023-10-09 07:01] LABS: Albumin Globulin Ratio 1.4 (0.9-2); Albumin Level 3.3 gm/dl (3.4-5.0); BUN Creatinine Ratio 20.6 (10-20); Bilirubin,Total 1.5 mg/dl (0.2-1.0); Calcium 8.8 mg/dl (8.6-10.3); Creatinine Clr Calc Pharmacy 37.1 ml/min; Est GFR (African American) 57.3 ml/min; Est GFR (Non-African American) 49.4 ml/min; Globulin 2.4 gm/dl (2.5-4.0); Magnesium 1.7 mg/dl (1.7-2.4); Potassium 4.2 mmol/L (3.5-5.1); Total Protein 5.7 gm/dl (6.0-8.3)
[2023-10-09 07:19] LABS: Ferritin 712.6 ng/ml (8-388)
[2023-10-09 07:22] LABS: Folate (Folic Acid),Ser orPlas 7.8 ng/ml (>5.38)
--- NOTE | 2023-10-09 07:37 | Cardiology Progress Note ---
Date of Service October 09, 2023 Assessment & Plan (1) Acute on chronic diastolic HF (heart failure): (2) Pleural effusion: (3) Persistent atrial fibrillation: (4) S/P AVR: (5) CAD (coronary artery disease): Plan IMPRESSION: 88-year-old female with acute on chronic heart failure preserved ejection fraction status post left-sided thoracentesis in the ER, 10/08/2023 PLAN: 1. Chronic heart failure with preserved ejection fraction -Chronic HFpEF, NYHA class 3 -S/p Left thoracentesis. CXR showing trace left PTX unchanged from yesterday- pulmonary following. Appreciate recommendations. 1. Continue diuresis with IV Lasix 40 mg daily. 2. 2g sodium restriction. Strict I&O. Daily weights. CHF [facility]. 3. Monitor renal function and electrolytes. Potassium goal 4.0 and mag goal of 2.0. Replace as needed. 4. Will need to consider discharge on higher dose of oral Lasix, perhaps 20 to 40 mg daily pending response. 5. Consider eval for supplemental o2 prior to discharge. 2. Persistent atrial fibrillation (HCC) -Persistent atrial fibrillation, initially diagnosed, 08/18/2023 at [facility]. -Telemetry revealing rate controlled atrial fibrillation in the 80-100s. Patient asymptomatic. 1. Increase metoprolol succinate to 75 mg daily 2. Anticoagulation previously deferred due to upper extremity hematoma while previously admitted. 3. Coronary artery disease involving wales coronary artery of wales heart without angina pectoris 4. Status post insertion of drug eluting coronary artery stent -Coronary artery disease/NSTEMI, cardiac catheterization 10/24/2019 with findings of a 99% thrombotic occlusion of the proximal LAD, subtotal chronic ostial occlusion of RCA with distal right coronary artery filling retrograde from the left to right collaterals, s/p successful PCI/SOULEYMANE to the proximal to mid LAD. -Stable, no angina. 1. Continue aspirin 81 mg daily and statin therapy with Lipitor 40 mg daily 5. S/P aortic valve replacement -Aortic valve stenosis status post bioprosthetic AVR (#21 mm vega Faulkner pericardial valve), 10/03/2007 -Stable gradients on inpatient echo dated 08/18/2023 1. Continue aspirin 81 mg daily 6. HTN, goal below 140/90 -Continue home dose of Imdur 30 mg daily. -Increase BB as stated above -No ACEi/ARB, prior history of hyperkalemia and renal dysfunction Case discussed with Dr. Yoon. Will follow. I spent a total of 30 minutes on the date of service in preparation, delivery, and documentation of the care provided to the patient excluding any time spent in the performance of separately billed services. WILLY Dominguez Department of Cardiology, [facility] This chart was completed in part utilizing Speech Voice Recognition Software. Grammatical errors, random word insertions, pronoun errors, and incomplete sentences are an occasional consequence of this system due to software limitations, ambient noise, and hardware issues. Any formal questions or concerns about the content, text, or information contained within the body of this dictation should be directly addressed to the provider for clarification. Admission and Anticipated Discharge Date Admission Date: October 08, 2023 Supervising Physician Co-Signing Physician Notes Supervising Physician Co-Signing Physician Notes I have reviewed the advance practitioner's documentation, and I agree with, and take responsibility for the plan of care. 88-year-old female admitted with shortness of breath, acute heart failure with preserved ejection fraction and bilateral pleural effusions. Left-sided thorace ntesis performed 10/08/2023 with small left apical pneumothorax. Patient feeling better today. Sister present at bedside. Tolerating daily IV Lasix. Fluid balance -1.3 L. Stable renal function. PE: VSS. SaO2 99% on 2 L General: NAD, awake and alert. Heart: Regular rhythm, 2/6 systolic ejection murmur. Lungs: Diminished breath sounds at the right base, fine Rales at the left base. No wheeze. Extremities: No edema. A/P: 88-year-old female with acute on chronic heart failure preserved ejection fraction status post left-sided thoracentesis with small left apical pneumothorax. Continue IV furosemide 40 mg daily. Monitor fluid balance, daily weight, GFR, and electrolytes. Will likely require daily diuretic dosing when discharged (previously treated with furosemide 20 mg on Sunday, Sunday, and Sunday only). Rate controlled atrial fibrillation on telemetry. Continue beta- pernell therapy. Patient is not anticoagulated due to upper extremity hematoma during most recent hospitalization. I spent a total of 22 minutes on the date of service in preparation, delivery, and documentation of the care provided to this patient, excluding any time spent in the performance of separately billed services. Subjective 88-year-old female admitted to [facility] with acute on chronic diastolic CHF and hypoxia. 10/08/2023: Hypervolemic on exam, diuresed with 40 mg of IV Lasix daily. Underwent left-sided thoracentesis in the ER yesterday removing 1400 mLs of portia colored fluid. Fluid was sent for cytology. 10/09/2023: Labs: Stable renal function and electrolytes. Tele: AFIB 80-100s I&O: -3.8L Weight:54 kg >>60 kg ? accuracy CXR 10/09/2023: 1. No change in the small left apical pneumothorax. 2. Small bilateral pleural effusions, bibasilar densities, and mild congestive change persists. Upon entrance into the room patient resting in the chair. No acute concerns. Notes subjective improvement in her SOB, but has not been moving around much. No chest pain, palpitations, dizziness, syncope or near syncope. No orthopnea, PND, or increased lower extremity edema. Wearing compression socks. No fever, chills, cough, hematochezia, melena, or hemoptysis. Review of Systems Review of Systems: All systems reviewed & are unremarkable except as noted in HPI & below Physical Exam Constitutional: + frail appearing; no acute distress Neck: normal visual inspection and trachea midline Respiratory: normal respiratory effort; no respiratory distress and no cough Auscultation: + diminished lung sounds (L >R) and + rales; no rhonchi and no wheezes Cardiovascular: Rate/Rhythm: regular rate and + irregularly irregular Heart Sounds: normal S1 and normal S2 Vessels: no JVD Extremities: + edema (trace BL nonpitting, compression socks in place ) Gastrointestinal (Abdomen): normal bowel sounds, soft, nontender, no hepatosplenomegaly Results & Data Vital Signs (Past 12 Hours) Vital Signs Temp Pulse Pulse Resp BP Pulse Ox O2 Del Method 10/09/23 03:00 36.8 C 101 H 22 124/77 93 Nasal Cannula 10/08/23 22:36 36.9 C 88 20 135/88 98 Room Air 10/08/23 22:00 91 H 10/08/23 19:52 Nasal Cannula O2 Flow Rate 10/09/23 03:00 2 10/08/23 22:36 10/08/23 22:00 10/08/23 19:52 2 Laboratory Results Cardiac Enzymes 10/08/23 10/09/23 Range/Units 10:30 05:44 AST 15 (13-39) U/L Lactate Dehydrogenase 164 (86-244) U/L Troponin I High Sens 33.4 H (0-14) pg/ml CBC 10/09/23 Range/Units 05:44 WBC 6.67 (4.8-10.8) K/ul RBC 3.33 L (4.20-5.40) M/uL Hgb 10.7 L (12.0-16.0) g/dl Hct 33.6 L (37.0-47.0) % Plt Count 154 (130-400) K/uL Comprehensive Metabolic Panel 10/09/23 Range/Units 05:44 Sodium 137 (136-145) mmol/L Potassium 4.2 (3.5-5.1) mmol/L Chloride 101 (98-107) mmol/L Carbon Dioxide 31 (21-32) mmol/L BUN 21 (6-23) mg/dl Creatinine 1.02 (0.6-1.2) mg/dl Glucose 94 (70-99(Fasting)) mg/dl Calcium 8.8 (8.6-10.3) mg/dl AST 15 (13-39) U/L ALT 14 (7-52) U/L Alkaline Phosphatase 65 (34-104) U/L Total Protein 5.7 L (6.0-8.3) gm/dl Albumin 3.3 L (3.4-5.0) gm/dl Intake and Output 10/08/23 10/09/23 10/09/23 22:59 06:59 14:59 Intake Total 250 / 350 100 / 350 Output Total 1450 / 4175 275 / 4175 Balance -1200 / -3825 -175 / -3825 Intake: IV 100 / 200 100 / 200 Aztreonam 2,000 mg In Dextrose 100 / 200 100 / 200 5% Mini-B 100 ml @ 100 mls/hr IV Q8H [facility] Rx#:[id number] Oral 150 / 150 Output: Urine Amount (Catheter) 1450 / 3975 275 / 3975 Conrad/Indwelling 1450 / 3975 275 / 3975 Other: Other Intake Source Sips Weight 51.2 kg 60.5 kg Weight Measurement Method Built in [facility] Built in [facility]
[2023-10-09] MEDS: PSYLLIUM or GUAR GUM FIBER POWDER PACKET PO SCH (08:26)
[2023-10-09] MEDS: FEXOFENADINE HCL 180 MG TAB PO SCH (08:26)
[2023-10-09] MEDS: ASPIRIN 81 MG ECTAB PO SCH (08:27)
[2023-10-09] MEDS: PANTOprazole 40 MG TAB PO SCH (08:27)
[2023-10-09] MEDS: FUROSEMIDE 40 MG/4 ML VIAL IV SCH (08:27)
[2023-10-09] MEDS: CHOLECALCIFEROL 25 MCG (1000 UNITS) TAB PO SCH (08:27)
[2023-10-09] MEDS: METOPROLOL SUCC 50MG EXT REL TAB PO SCH (08:27)
[2023-10-09] MEDS: ISOSORBIDE MONO EXTENDED REL 30 MG TABCR PO SCH (08:28)
--- NOTE | 2023-10-09 09:00 | Pulmonology Progress Note ---
Date of Service October 09, 2023 Assessment & Plan (1) Pleural effusion: (2) Acute respiratory failure with hypoxia: Plan Impression: 88-year-old female with dementia and diastolic heart failure admitted with shortness of breath and bilateral pleural effusions. Patient underwent thoracentesis on the left yesterday which confirmed a transudative process likely secondary to diastolic heart failure. She is better this morning. She had a small pneumo ex vacuo which is stable on serial imaging. Recommendations: 1. Pleural effusions: Transudative. Recommend aggressive diuresis. If the patient's kidney function is unable to tolerate diuresis and effusions reaccumulate, this portends a poor prognosis. Pleural effusions in patients with heart failure necessitating thoracentesis portends a 22% 30-day mortality and a 50% 1 year mortality and should be taken into consideration. Would not recommend serial thoracentesis as a long-term management strategy for these patients. 2. Hypoxemic respiratory failure: Secondary to #1. Will see what her oxygen requirement is after the thoracentesis and with diuresis. May require oxygen to go home with. 3. Blood gas showing mild hypercarbia. No indication for noninvasive positive pressure ventilation given the patient's clinical stability and underlying dementia. In addition the patient is DNR/DNI and I do not think she would be a great candidate for long-term nocturnal positive airway pressure ventilation. Pulmonary will sign off at this point in time. Feel free to contact us with questions or concerns Admission and Anticipated Discharge Date Admission Date: October 08, 2023 Subjective Patient seen and examined. EMR reviewed. Patient is doing well. She feels her breathing is better after thoracentesis yesterday. She did have a small pneumothorax vacuo which on serial imaging did not progress. She remains pleasantly demented. Complaints this morning Review of Systems 2 Review of Systems: All systems reviewed & are unremarkable except as noted in Subjective Physical Exam 2 Constitutional: WD/WN, vitals as above Neck: trachea midline, no thyromegaly Respiratory: no respiratory distress, no labored breathing, no cough and not tachypneic Auscultation: + diminished lung sounds Cardiovascular: RRR, no murmur, no edema Gastrointestinal (Abdomen): normal bowel sounds, soft, nontender, no hepatosplenomegaly Musculoskeletal: Extremities: extremities normal to inspection Skin: no rashes, warm and dry Lymphatic: no cervical lymphadenopathy Results & Data Results & Data Vital Signs (Past 12 Hours) Vital Signs Temp Pulse Pulse Resp BP BP Pulse Ox 10/09/23 07:40 36.8 C 108 H 19 154/96 H 98 10/09/23 03:00 36.8 C 101 H 22 124/77 93 10/08/23 22:36 36.9 C 88 20 135/88 98 10/08/23 22:00 91 H O2 Del Method O2 Flow Rate 10/09/23 07:40 Room Air 10/09/23 03:00 Nasal Cannula 2 10/08/23 22:36 Room Air 10/08/23 22:00 Laboratory Results 10/09/23 05:44 10/09/23 05:44 Pleural fluid studies: Cytology pending Differential not performed Pleural pH 7.47 Pleural total protein less than 3 Pleural LDH 74 Pleural glucose 108 Gram stain with few white blood cells and no organisms, culture pending AFB stains negative with cultures pending Diagnostic Findings Postthoracentesis x-rays were independently reviewed. Small apical pneumothorax on the left which. Stable to resolved on follow-up imaging PG Care Time/CCT Total # of Minutes Spent Total Time Spent with Patient: Total time spent is greater than 50% in coordination of care (as documented) at patient's floor/unit and/or counseling patient: Coding Level of Care Code 97500 SUB INP/OBS CARE 2/35MIN Diagnoses Pleural effusion J90 Acute respiratory failure with hypoxia J96.01
--- NOTE | 2023-10-09 09:21 | XRay Report ---
XR chest 1V portable HISTORY: Follow up left pneumothorax. COMPARISON: Chest 10/08/2023. FINDINGS: No change in the small left apical pneumothorax with a pleural gap of 7 mm. Cardiomegaly, s mall bilateral pleural fusions, bibasilar densities persist. Mild congestive change again noted. Ther e are calcifications within the aortic knob. No acute fractures identified. IMPRESSION: 1. No change in the small left apical pneumothorax. 2. Small bilateral pleural effusions, bibasilar densities, and mild congestive change persists. ACT 112: Negative or not required by law. Electronically signed by: Ludwig Braga M.D. 10/09/2023 9:20 AM
[2023-10-09] MEDS: METOPROLOL SUCC 25MG EXT REL TAB PO STA (12:35)
--- NOTE | 2023-10-09 14:44 | Electrocardiogram Report ---
Test Reason : Blood Pressure : / mmHG Vent. Rate : 090 BPM Atrial Rate : 000 BPM P-R Int : 000 ms QRS Dur : 084 ms QT Int : 366 ms P-R-T Axes : 000 046 080 degrees QTc Int : 447 ms Atrial fibrillation Abnormal ECG When compared with ECG of 20-AUG-2023 05:02, No significant change was found Confirmed by Oskar Rhodes ([id number]) on 10/09/2023 2:43:50 PM Referred By: Jim [facility] Confirmed By:Yanick Rhodes
--- NOTE | 2023-10-09 14:50 | Electrocardiogram Report ---
Test Reason : Blood Pressure : / mmHG Vent. Rate : 099 BPM Atrial Rate : 086 BPM P-R Int : 000 ms QRS Dur : 074 ms QT Int : 308 ms P-R-T Axes : 000 061 067 degrees QTc Int : 395 ms Atrial fibrillation Abnormal ECG When compared with ECG of 08-OCT-2023 08:42, (unconfirmed) Criteria for Anterior infarct are no longer Present QT has shortened Confirmed by Oskar Rhodes ([id number] on 10/09/2023 2:49:38 PM Referred By: Jim Garcia [place] Confirmed By:Yanick Rhodes
--- NOTE | 2023-10-09 15:38 | Hospitalist Progress Note ---
Date of Service October 09, 2023 Assessment & Plan (1) CHF exacerbation: (2) Chronic diastolic heart failure: (3) Chronic atrial fibrillation: (4) Acute respiratory failure with hypoxia: (5) Pleural effusion: (6) CKD (chronic kidney disease), stage III: (7) Dementia: Plan: Acute on chronic diastolic heart failure Acute respiratory failure with hypoxia Bilateral pleural effusions status post left-sided thoracentesis on 10/08/2023 Patient presented with shortness of breath. Chest x-ray on admission; mild pulm edema and bilateral pleural effusion CTA chest on admission showed moderate pleural effusion with bibasilar consolidation BNP elevated to 406 status post left-sided thoracentesis on 10/08/2023 Pleural fluid analysis reviewed; transudative pattern. Likely secondary to heart failure. Pulmonology does not recommend serial thoracentesis in the future. Evaluated by cardiology; underwent diuresis with IV Lasix 40 mg once a day Will likely require daily diuretic dosing with Lasix 20 mg on Sunday and Sunday Strict input and output monitoring Wean oxygen as tolerated. Persistent atrial fibrillation-new diagnosis as of 08/18/2023 -Anticoagulation was previously deferred due to right upper extremity hematoma which happened during admission last time, -Recently seen by cardiology on 09/11 -EKG on admission shows atrial fibrillation, On metoprolol; continue. Patient is not on anticoagulation due to upper extremity hematoma during recent admission. CKD stage III - Chronic, stable, trend am lab Dementia -Patient is AAO x 3; occasionally requires reorientation. DVT ppx: Heparin Lines: 2 PIV FEN/GI: HH diet, fluid restriction CODE: DNR/DNI Dispo: [facility] home, PT OT ordered Time spent evaluating patient, direct bedside care, chart review, placing orders, interpretation of diagnostic studies, discussion with consultants, patient, and family members, as well as other required patient management activities is 50 minutes Please note the above document was generated using voice recognition software. It may contain grammatical, syntax or spelling errors. Any formal questions or concerns about the content, text or information contained within the body of this dictation should be directly addressed to the provider for clarification Admission and Anticipated Discharge Date Admission Date: October 08, 2023 Subjective Patient seen and examined at bedside. She reports that she is feeling better compared to yesterday. Reports that her shortness of breath has improved. Review of Systems Review of Systems: All systems reviewed & are unremarkable except as noted in Subjective Physical Exam Physical Exam: Constitutional: WD/WN, vitals as above, NAD, sitting up in bed, pleasant, conversing easily Respiratory: b/l decreased breath sound at bases. Occasional crackles. Cardiovascular: RRR, no murmur, no edema Vessels: no JVD or carotid bruit Chest: normal inspection of chest Abdomen: normal bowel sounds, soft, nontender, no hepatosplenomegaly Musculoskeletal: no cyanosis or clubbing, extremities motor strength 5/5 Skin: no rashes, warm and dry normal turgor Neurologic: PERRL, EOMI, accommodation nl, no face palsy, no dysarthria CN's II- XI intact bilaterally and moves all extremities Psychiatric: A+Ox3, euthymic affect Results & Data Results & Data Vital Signs (Past 12 Hours) Vital Signs Temp Pulse Resp BP Pulse Ox O2 Del Method O2 Flow Rate 10/09/23 13:11 111/67 10/09/23 13:09 Nasal Cannula 2 10/09/23 11:27 36.3 C L 79 19 95/58 L 94 Nasal Cannula 2 10/09/23 07:40 36.8 C 108 H 19 154/96 H 98 Room Air (1) CHF exacerbation Heart failure type: diastolic Qualified Code(s): I50.33 - Acute on chronic diastolic (congestive) heart failure
[2023-10-09] MEDS: HEPARIN SOD 5,000 UNIT/0.5 ML VIAL SQ SCH (21:06)
[2023-10-10 07:22] LABS: Basophils # (auto) 0.04 K/uL (0.00-0.20); Basophils % (auto) 0.6 %; Eosinophils # (auto) 0.32 K/uL (0.00-0.50); Eosinophils % (auto) 4.8 %; Hematocrit (blood only) 31.6 % (37.0-47.0); Hemoglobin 10.1 g/dl (12.0-16.0); Immature Granulocytes # (auto) 0.02 K/uL (0.01-0.20); Immature Granulocytes % (auto) 0.3 %; Lymphocytes # (auto) 0.59 K/uL (1.20-3.40); Lymphocytes % (auto) 8.9 %; Mean Corpuscular Hemoglobin 32.4 pg (25.0-34.0); Mean Corpuscular Volume 101.3 fL (80.0-100.0); Mean Platelet Volume 10.3 fL (9.4-12.4); Monocytes # (auto) 0.73 K/uL (0.11-0.59); Neutrophils # (auto) 4.96 K/uL (1.40-6.50); Neutrophils % (auto) 74.4 %; Platelet Count 136 K/uL (130-400); RDW Coefficient of Variation 13.3 % (11.5-14.5); RDW Standard Deviation 49.1 fL (36.4-46.3); Red Blood Count 3.12 M/uL (4.20-5.40); White Blood Count 6.66 K/ul (4.8-10.8)
--- NOTE | 2023-10-10 07:27 | Cardiology Progress Note ---
Date of Service October 10, 2023 Assessment & Plan (1) Acute on chronic diastolic HF (heart failure): (2) Pleural effusion: (3) Persistent atrial fibrillation: (4) S/P AVR: (5) CAD (coronary artery disease): Plan IMPRESSION: 88-year-old female with acute on chronic heart failure preserved ejection fraction status post left-sided thoracentesis in the ER, 10/08/2023 PLAN: 1. Chronic heart failure with preserved ejection fraction -Chronic HFpEF, NYHA class 3 -S/p Left thoracentesis. CXR showing trace left PTX unchanged from 10/08- pulmonary following. Appreciate recommendations. 1. Mild increase in scr, stop IV lasix, transition to PO lasix 40 mg daily 2. 2g sodium restriction. Strict I&O. Daily weights. [facility]. 3. Monitor renal function and electrolytes daily. Potassium goal 4.0 and mag goal of 2.0. Replace as needed. 4. Consider eval for supplemental o2 prior to discharge-- 2-step. 2. Persistent atrial fibrillation (HCC) -Persistent atrial fibrillation, initially diagnosed, 08/18/2023 at [facility]. -Telemetry revealing rate controlled atrial fibrillation in the 80-100s. Patient asymptomatic. 1. Continue increased dose of metoprolol succinate 75 mg daily 2. Anticoagulation previously deferred due to upper extremity hematoma while previously admitted. 3. Coronary artery disease involving [place] coronary artery of [place] heart without angina pectoris 4. Status post insertion of drug eluting coronary artery stent -Coronary artery disease/NSTEMI, cardiac catheterization 10/24/2019 with findings of a 99% thrombotic occlusion of the proximal LAD, subtotal chronic ostial occlusion of RCA with distal right coronary artery filling retrograde from the left to right collaterals, s/p successful PCI/SOULEYMANE to the proximal to mid LAD. -Stable, no angina. 1. Continue aspirin 81 mg daily and statin therapy with Lipitor 40 mg daily 5. S/P aortic valve replacement -Aortic valve stenosis status post bioprosthetic AVR (#21 mm vega Faulkner pericardial valve), 10/03/2007 -Stable gradients on inpatient echo dated 08/18/2023 1. Continue aspirin 81 mg daily 6. HTN, goal below 140/90 -Continue home dose of Imdur 30 mg daily. -BB dosage as stated above -No ACEi/ARB, prior history of hyperkalemia and renal dysfunction Case discussed with Dr. Yoon. Will follow. I spent a total of 30 minutes on the date of service in preparation, delivery, and documentation of the care provided to the patient excluding any time spent in the performance of separately billed services. WILLY Dominguez Department of Cardiology, [facility] This chart was completed in part utilizing Speech Voice Recognition Software. Grammatical errors, random word insertions, pronoun errors, and incomplete sentences are an occasional consequence of this system due to software limitations, ambient noise, and hardware issues. Any formal questions or concerns about the content, text, or information contained within the body of this dictation should be directly addressed to the provider for clarification. Admission and Anticipated Discharge Date Admission Date: October 08, 2023 Supervising Physician Co-Signing Physician Notes I have reviewed the advance practitioner's documentation, and I agree with, and take responsibility for the plan of care. 88-year-old female admitted with shortness of breath, acute heart failure with preserved ejection fraction and bilateral pleural effusions. Left-sided thoracentesis performed 10/08/2023 with small left apical pneumothorax. Repeat chest x-ray today demonstrating persistent right-sided pleural effusion and possible hydropneumothorax. Creatinine trending upward slightly. Even fluid balance recorded. PE: VSS. SaO2 99% on 2 L General: NAD, awake and alert. Heart: Irregular rhythm, 2/6 systolic ejection murmur. Lungs: Diminished breath sounds at the right base, diminished breath sounds at the left base with associated rales. No wheeze. Extremities: No edema. A/P: 88-year-old female with acute on chronic heart failure preserved ejection fraction status post left-sided thoracentesis with small left apical pneumothorax. Repeat chest x-ray demonstrating right-sided pleural effusion, reaccumulation of left pleural effusion. Recommend increase Lasix to 40 mg IV twice daily. Monitor fluid balance, daily weight, GFR, and electrolytes. Patient will require daily diuretic dosing when discharged (previously treated with furosemide 20 mg on Sunday, Sunday, and Sunday only). Rate controlled atrial fibrillation on telemetry. Continue beta-pernell therapy. Patient is not anticoagulated due to upper extremity hematoma during prior hospitalization. I spent a total of 25 minutes on the date of service in preparation, delivery, and documentation of the care provided to this patient, excluding any time spent in the performance of separately billed services. Subjective 88-year-old female admitted to [facility] with acute on chronic diastolic CHF and hypoxia. 10/08/2023: Hypervolemic on exam, diuresed with 40 mg of IV Lasix daily. Underwent left-sided thoracentesis in the ER yesterday removing 1400 mLs of portia colored fluid. Fluid was sent for cytology. CXR with small left pneumothorax 10/09/2023: CXR 10/09/2023: 1. No change in the small left apical pneumothorax. 2. Small bilateral pleural effusions, bibasilar densities, and mild congestive change persists. Ongoing diuresis with IV Lasix 40 mg daily HR elevated in AFIB (known)-- metoprolol succinate increased to 75 mg daily 10/10/2023: Labs: increase in Scr this am 1.02>>1.29. K stable. Tele: AFIB 80s I&O: -3.6L Weight:54 kg >>60 kg >>60.2 kg Upon entrance into the room patient resting in bed eating breakfast. No acute concerns. Ongoing MORGAN, improved at rest. No chest pain, palpitations, dizziness, syncope or near syncope. No orthopnea, PND, or increased lower extremity edema. Wearing compression socks. No fever, chills, cough, hematochezia, melena, or hemoptysis. Review of Systems Review of Systems: All systems reviewed & are unremarkable except as noted in HPI & below Physical Exam Constitutional: + frail appearing; no acute distress Neck: normal visual inspection and trachea midline Respiratory: normal respiratory effort; no respiratory distress and no cough Auscultation: + diminished lung sounds (L >R) and + rales; no rhonchi and no wheezes Cardiovascular: Rate/Rhythm: regular rate and + irregularly irregular Heart Sounds: normal S1 and normal S2 Vessels: no JVD Extremities: + edema (trace BL nonpitting, compression socks in place ) Gastrointestinal (Abdomen): normal bowel sounds, soft, nontender, no hepatosplenomegaly Psychiatric: A+Ox3, euthymic affect Results & Data Vital Signs (Past 12 Hours) Vital Signs Temp Pulse Pulse Resp BP Pulse Ox O2 Del Method 10/10/23 03:09 36.9 C 88 20 128/77 97 Nasal Cannula 10/09/23 23:25 37.1 C 94 H 22 125/75 93 Nasal Cannula 10/09/23 22:30 89 10/09/23 20:00 Nasal Cannula O2 Flow Rate 10/10/23 03:09 2 10/09/23 23:25 2 10/09/23 22:30 10/09/23 20:00 2
[2023-10-10 08:44] LABS: Calcium 8.6 mg/dl (8.6-10.3); Magnesium 1.6 mg/dl (1.7-2.4); Potassium 4.2 mmol/L (3.5-5.1)
[2023-10-10 08:50] LABS: BUN Creatinine Ratio 22.5 (10-20); Creatinine Clr Calc Pharmacy 29.2 ml/min; Est GFR (African American) 43.1 ml/min; Est GFR (Non-African American) 37.2 ml/min
[2023-10-10] MEDS: METOPROLOL SUCC 25MG EXT REL TAB PO SCH (10:13)
[2023-10-10] MEDS: MAGNESIUM SULFATE / D5W 1 GM/100 ML BAG IV SCH (10:56)
--- NOTE | 2023-10-10 14:42 | XRay Report ---
XR chest 1V portable HISTORY: left pneumo s/p thoracentesis. Follow-up. COMPARISON: Chest 10/09/2023. FINDINGS: Decrease in size in the tiny left apical pneumothorax which demonstrates a maximal pleural gap of 4 mm. The heart remains enlarged. Poststernotomy changes and a cardiac valve prosthesis again noted. Bilateral pleural effusions, bibasilar densities, and mild pulmonary edema persists. There is suggestion of an air-fluid level within the right lung base. This could represent a loculated hydropn eumothorax. IMPRESSION: 1. Decrease in size of the tiny left apical pneumothorax. 2. Air-fluid level within the right lung base which could represent a loculated hydropneumothorax. 3. Pulmonary edema, bibasilar densities, and small bilateral pleural effusions are again noted. ACT 112: Negative or not required by law. Electronically signed by: Ludwig Braga M.D. 10/10/2023 2:40 PM
--- NOTE | 2023-10-10 16:06 | Hospitalist Progress Note ---
Date of Service October 10, 2023 Assessment & Plan (1) CHF exacerbation: (2) Chronic diastolic heart failure: (3) Chronic atrial fibrillation: (4) Acute respiratory failure with hypoxia: (5) Pleural effusion: (6) CKD (chronic kidney disease), stage III: (7) Dementia: Plan: Acute on chronic diastolic heart failure Acute respiratory failure with hypoxia Bilateral pleural effusions status post left-sided thoracentesis on 10/08/2023 Patient presented with shortness of breath. Chest x-ray on admission; mild pulm edema and bilateral pleural effusion CTA chest on admission showed moderate pleural effusion with bibasilar consolidation BNP elevated to 406 S/P left thoracentesis on 10/08/2023 with 1400 mL of portia fluid taken out -->> transudative nature. Pleural effusion likely secondary to heart failure. Pulmonology does not rec ommend serial thoracentesis in the future. Cardiology on board, being diuresed, patient will need to schedule diuresis upon discharge. Strict I's and O's, wean down oxygen as tolerated. Repeat CXR 10/09 with decreasing size of tiny left apical pneumothorax but no new findings suggestive of loculated hydropneumothorax noted at right lung base. Communicated with pulmonology via TT, await further input. Continue diuresis, continue telemetry. Monitor and replete electrolytes. Persistent atrial fibrillation-new diagnosis as of 08/18/2023 -Anticoagulation was previously deferred due to right upper extremity hematoma which happened during admission last time -Recently seen by cardiology on 09/11 -EKG on admission shows atrial fibrillation, On metoprolol; continue. Patient is not on anticoagulation due to upper extremity hematoma during recent admission. CKD stage III - Chronic, stable, trend am lab Dementia -Patient is AAO x 3; occasionally requires reorientation. DVT ppx: Heparin CODE: DNR/DNI Dispo: [facility], PT OT, CM to assist w/ DC plan. Likely 2 step prior to dc. Please note the above document was generated using voice recognition software. It may contain grammatical, syntax or spelling errors. Any formal questions or concerns about the content, text or information contained within the body of this dictation should be directly addressed to the provider for clarification Admission and Anticipated Discharge Date Admission Date: October 08, 2023 Subjective Patient seen and examined at bedside. She reports that she is feeling better overall, reports improvement in SOB. Reports eating ok and moving bowels ok, denies chest pain. Denies fever or chills or cough or palpitations. Physical Exam Physical Exam: Constitutional: WD/WN, vitals as above, NAD, sitting up in bed, pleasant, conversing easily Respiratory: b/l decreased breath sound at bases. Occasional crackles. Cardiovascular: RRR, no murmur, no edema Vessels: no JVD or carotid bruit Chest: normal inspection of chest Abdomen: normal bowel sounds, soft, nontender, no hepatosplenomegaly Musculoskeletal: no cyanosis or clubbing, extremities motor strength 5/5 Skin: no rashes, warm and dry normal turgor Neurologic: PERRL, EOMI, accommodation nl, no face palsy, no dysarthria CN's II- XI intact bilaterally and moves all extremities Psychiatric: A+Ox3, euthymic affect Results & Data Results & Data Vital Signs (Past 12 Hours) Vital Signs Temp Pulse Resp BP Pulse Ox O2 Del Method O2 Flow Rate 10/10/23 15:40 36.9 C 83 18 109/76 94 Room Air 1 10/10/23 10:47 36.6 C 96 H 18 146/80 H 94 Nasal Cannula 1 10/10/23 09:00 Nasal Cannula 1 10/10/23 07:43 36.5 C 93 H 18 129/81 95 Room Air (1) CHF exacerbation Heart failure type: diastolic Qualified Code(s): I50.33 - Acute on chronic diastolic (congestive) heart failure
[2023-10-10] MEDS: FUROSEMIDE 40 MG/4 ML VIAL IV SCH (20:04)
--- NOTE | 2023-10-10 20:59 | CT Scan Report ---
CT chest diagnostic wo con CLINICAL HISTORY: RLL Air fluid level. TECHNIQUE: Multidetector row helical CT of the chest was performed. Coronal and sagittal reformations were obtained. Automated dose lowering techniques and/or adjustment according to patient size were u tilized for this exam. CT DOSE: 390.99 mGy.cm Comparison: Comparison is made to CT chest 09/09/2023 FINDINGS: Lungs and pleura: Moderate right and small left pleural effusion is seen. Atelectasis is seen. There is a small right pneumothorax. Heart and pericardium: Cardiomegaly is seen with biatrial enlargement. Vessels: Pulmonary trunk measures 37 mm in diameter. Severe atherosclerotic disease is seen. Mediastinum and [place]: Unremarkable. Chest wall and lower neck: Subcentimeter axillary lymph nodes noted. Abdomen: Unremarkable. Bones: Degenerative changes in the thoracic spine. IMPRESSION: 1. Left hydropneumothorax is seen with a small component of air. Moderate right pleural effusion is seen. There is associated atelectasis. 2. Cardiomegaly with pulmonary hypertension. ACT 112: Negative or not required by law. Electronically signed by: Socrates Mcclelland M.D. 10/10/2023 8:57 PM
[2023-10-11 04:44] LABS: Hematocrit (blood only) 31.8 % (37.0-47.0); Hemoglobin 10.2 g/dl (12.0-16.0); Mean Corpuscular Hemoglobin 32.2 pg (25.0-34.0); Mean Corpuscular Hgb Conc 32.1 g/dL (32.0-36.0); Mean Corpuscular Volume 100.3 fL (80.0-100.0); Mean Platelet Volume 10.6 fL (9.4-12.4); Platelet Count 152 K/uL (130-400); RDW Standard Deviation 48.3 fL (36.4-46.3); Red Blood Count 3.17 M/uL (4.20-5.40); White Blood Count 7.91 K/ul (4.8-10.8)
[2023-10-11 04:49] LABS: BUN Creatinine Ratio 22.6 (10-20); Calcium 8.5 mg/dl (8.6-10.3); Creatinine Clr Calc Pharmacy 25.8 ml/min; Est GFR (African American) 37.1 ml/min; Magnesium 2.1 mg/dl (1.7-2.4); Phosphorus 3.7 mg/dl (2.5-4.9); Potassium 4.1 mmol/L (3.5-5.1)
--- NOTE | 2023-10-11 07:34 | Cardiology Progress Note ---
Date of Service October 11, 2023 Assessment & Plan (1) Acute on chronic diastolic HF (heart failure): (2) Pleural effusion: (3) Persistent atrial fibrillation: (4) S/P AVR: (5) CAD (coronary artery disease): Plan IMPRESSION: 88-year-old female with acute on chronic heart failure preserved ejection fraction status post left-sided thoracentesis in the ER, 10/08/2023 PLAN: 1. Chronic heart failure with preserved ejection fraction -Chronic HFpEF, NYHA class 3 -S/p Left thoracentesis. CXR showing trace left PTX unchanged from 10/08- pulmonary following. Appreciate recommendations. 1. Being diuresed with IV Lasix 40 mg twice daily. Pulmonary re-evaluated this am, ? repeat thoracentesis tomorrow 2. 2g sodium restriction. Strict I&O. Daily weights. CHF [facility]. 3. Monitor renal function and electrolytes daily. Potassium goal 4.0 and mag goal of 2.0. Replace as needed. 4. Consider eval for supplemental o2 prior to discharge-- 2-step. 2. Persistent atrial fibrillation (HCC) -Persistent atrial fibrillation, initially diagnosed, 08/18/2023 at [facility]. -Telemetry revealing rate controlled atrial fibrillation in the 80-100s. Patient asymptomatic. 1. Continue metoprolol succinate 75 mg daily 2. Anticoagulation previously deferred due to upper extremity hematoma while previously admitted. 3. Coronary artery disease involving [place] coronary artery of [place] heart without angina pectoris 4. Status post insertion of drug eluting coronary artery stent -Coronary artery disease/NSTEMI, cardiac catheterization 10/24/2019 with findings of a 99% thrombotic occlusion of the proximal LAD, subtotal chronic ostial occlusion of RCA with distal right coronary artery filling retrograde from the left to right collaterals, s/p successful PCI/SOULEYMANE to the proximal to mid LAD. -Stable, no angina. 1. Continue aspirin 81 mg daily and statin therapy with Lipitor 40 mg daily 5. S/P aortic valve replacement -Aortic valve stenosis status post bioprosthetic AVR (#21 mm vega Faulkner pericardial valve), 10/03/2007 -Stable gradients on inpatient echo dated 08/18/2023 1. Continue aspirin 81 mg daily 6. HTN, goal below 140/90 -Continue home dose of Imdur 30 mg daily. -BB dosage as stated above -No ACEi/ARB, prior history of hyperkalemia and renal dysfunction Case discussed with Dr. Yoon. Will follow. I spent a total of 30 minutes on the date of service in preparation, delivery, and documentation of the care provided to the patient excluding any time spent in the performance of separately billed services. WILLY Dominguez Department of Cardiology, [facility] This chart was completed in part utilizing Speech Voice Recognition Software. Grammatical errors, random word insertions, pronoun errors, and incomplete sentences are an occasional consequence of this system due to software limitations, ambient noise, and hardware issues. Any formal questions or concerns about the content, text, or information contained within the body of this dictation should be directly addressed to the provider for clarification. Admission and Anticipated Discharge Date Admission Date: October 08, 2023 Supervising Physician Co-Signing Physician Notes I have reviewed the advance practitioner's documentation, and I agree with, and take responsibility for the plan of care. 88-year-old female admitted with shortness of breath, acute heart failure with preserved ejection fraction and bilateral pleural effusions. Left-sided thoracentesis performed 10/08/2023 with small left apical pneumothorax. Notes continued shortness of breath. PE: VSS. SaO2 99% on 2 L General: NAD, awake and alert. Heart: Irregular rhythm, 2/6 systolic ejection murmur. Lungs: Diminished breath sounds at the right base, diminished breath sounds at the left base with associated rales. No wheeze. Extremities: No edema. A/P: 88-year-old female with acute on chronic heart failure preserved ejection fraction status post left-sided thoracentesis with small left apical pneumothorax. Maintain negative fluid balance. Patient considering right-sided thoracentesis in a.m. 10/12/2023. Continue Lasix to 40 mg IV twice daily. Monitor fluid balance, daily weight, GFR, and electrolytes while hospitalized. Patient will require daily diuretic dosing when discharged (previously treated with furosemide 20 mg on Sunday, Sunday, and Sunday only). Rate controlled atrial fibrillation on telemetry. Continue beta-pernell therapy. Patient is not anticoagulated due to upper extremity hematoma during prior hospitalization. I spent a total of 25 minutes on the date of service in preparation, delivery, and documentation of the care provided to this patient, excluding any time spent in the performance of separately billed services. Subjective 88-year-old female admitted to [facility] with acute on chronic diastolic CHF and hypoxia. Status post left-sided thoracentesis 10/08/2023. 10/08/2023: Hypervolemic on exam, diuresed with 40 mg of IV Lasix daily. Underwent left-sided thoracentesis in the ER yesterday removing 1400 mLs of portia colored fluid. Fluid was sent for cytology. CXR with small left pneumothorax 10/09/2023: CXR 10/09/2023: 1. No change in the small left apical pneumothorax. 2. Small bilateral pleural effusions, bibasilar densities, and mild congestive change persists. Ongoing diuresis with IV Lasix 40 mg daily HR elevated in AFIB (known)-- metoprolol succinate increased to 75 mg daily 10/10/2023: Repeat chest x-ray demonstrating right-sided pleural effusion, reaccumulation of left pleural effusion. IV Lasix increased to 40 mg twice daily. 10/11/2023: Labs: increase in Scr this am 1.02>>1.29>>1.46. K stable. Tele: AFIB 70-80d I&O: -3.5L Weight:54 kg >>60 kg >>60.2 kg >> 60.8 kg Upon entrance into the room patient resting in bed. Family at bedside. Feels "lousy". Worsening shortness of breath. No chest pain, palpitations, dizziness, syncope or near syncope. No orthopnea, PND, or increased lower extremity edema. Wearing compression socks. No fever, chills, cough, hematochezia, melena, or he moptysis. Review of Systems Review of Systems: All systems reviewed & are unremarkable except as noted in HPI & below Physical Exam Constitutional: + frail appearing; no acute distress Neck: normal visual inspection and trachea midline Respiratory: normal respiratory effort; no respiratory distress and no cough Auscultation: + diminished lung sounds (L >R) and + rales; no rhonchi and no wheezes Cardiovascular: Rate/Rhythm: regular rate and + irregularly irregular Heart Sounds: normal S1 and normal S2 Vessels: no JVD Extremities: + edema (trace BL nonpitting, compression socks in place ) Gastrointestinal (Abdomen): normal bowel sounds, soft, nontender, no hepatosplenomegaly Psychiatric: A+Ox3, euthymic affect Results & Data Vital Signs (Past 12 Hours) Vital Signs Temp Pulse Pulse Resp BP Pulse Ox O2 Del Method 10/11/23 02:47 36.7 C 90 17 120/79 92 Nasal Cannula 10/10/23 22:52 36.4 C L 88 20 108/70 90 Room Air 10/10/23 22:00 92 H 10/10/23 20:20 Room Air O2 Flow Rate 10/11/23 02:47 2 10/10/23 22:52 10/10/23 22:00 10/10/23 20:20
[2023-10-11] MEDS ORDERED: FUROSEMIDE 40 MG TAB PO SCH (09:00)
--- NOTE | 2023-10-11 09:26 | Pulmonology Progress Note ---
Date of Service October 11, 2023 Assessment & Plan (1) Pleural effusion: (2) Acute respiratory failure with hypoxia: Plan Impression: 88-year-old female with dementia and diastolic heart failure admitted with shortness of breath and bilateral pleural effusions. Patient underwent thoracentesis 10/07 which confirmed a transudative process likely secondary to diastolic heart failure. Continues to complain of some mild shortness of breath. No complaints of pain at this time. Recommendations: 1. Pleural effusions: Transudative. Continue with aggressive diuresis. Previous thoracentesis demonstrates transudative process. Review of images noted. Discussed thoracentesis procedure again with the patient. She is not interested in procedure today. She would rather be treated conservatively at this time, but would be interested on reassessment tomorrow. Again, this is not a definitive treatment for the patient in the long-term and management of by offloading her volume is the definitive treatment of choice for this patient moving forward. 2. Hypoxemic respiratory failure: Secondary to #1. Saturating well on 2L. Would titrate down to off if able. 3. Blood gas showing mild hypercarbia. No indication for noninvasive positive pressure ventilation given the patient's clinical stability and underlying dementia. In addition the patient is DNR/DNI and I do not think she would be a great candidate for long-term nocturnal positive airway pressure ventilation. Thank you for allowing us to participate in the care of this patient. Admission and Anticipated Discharge Date Admission Date: October 08, 2023 Supervising Physician Co-Signing Physician Notes Seen and examined. Imaging reviewed. Discussed with ZHANNA. Agree with assessment plan as noted. CT scan demonstrates no evidence of a hydropneumothorax on the right. The chest x-ray was likely artifactual. She does have bilateral effusions. She is not a nxious to pursue invasive procedures and I would recommend conservative management with diuretics at this point in time given her pneumothorax on the left previously. Will reassess in the a.m. She is on minimal amount of oxygen currently and given her asymptomatic nature, I think diuresis is a reasonable option. Subjective Patient seen and evaluated at bedside. She reports that she is still having some slight shortness of breath. She denies any complaints of chest pain. She offers no other complaints at this time. Review of Systems Review of Systems: Please refer to admission H&P. No additions or deletions Physical Exam Physical Exam: VITAL SIGNS - Vital signs and nursing notes were reviewed. GENERAL - 88-year-old female appearing her stated age who is in no acute distress. Communicates well with provider and answers questions appropriately. LUNGS - Auscultation reveals clear lung sounds, diminished at the bases. CARDIAC - RRR with S1/S2. No murmur, rubs, or gallops appreciated. EXTREMITIES - Nail clubbing no present. No peripheral cyanosis. Moderate pretibial edema present. +3/5 radial palpated throughout. Results & Data Results & Data Vital Signs (Past 12 Hours) Vital Signs Temp Pulse Pulse Resp BP Pulse Ox O2 Del Method 10/11/23 07:33 36.8 C 90 18 163/87 H 95 Nasal Cannula 10/11/23 02:47 36.7 C 90 17 120/79 92 Nasal Cannula 10/10/23 22:52 36.4 C L 88 20 108/70 90 Room Air 10/10/23 22:00 92 H O2 Flow Rate 10/11/23 07:33 1 10/11/23 02:47 2 10/10/23 22:52 10/10/23 22:00 PG Care Time/CCT Total # of Minutes Spent Total Time Spent with Patient: Total time spent is greater than 50% in coordination of care (as documented) at patient's floor/unit and/or counseling patient: Coding Level of Care Code 41112 SUB INP/OBS CARE 2/35MIN Diagnoses Pleural effusion J90 Acute respiratory failure with hypoxia J96.01
--- NOTE | 2023-10-11 15:50 | Hospitalist Progress Note ---
Date of Service October 11, 2023 Assessment & Plan (1) CHF exacerbation: (2) Chronic diastolic heart failure: (3) Chronic atrial fibrillation: (4) Acute respiratory failure with hypoxia: (5) Pleural effusion: (6) CKD (chronic kidney disease), stage III: (7) Dementia: Plan: Acute on chronic diastolic heart failure Acute respiratory failure with hypoxia Bilateral pleural effusions status post left-sided thoracentesis on 10/08/2023 Patient presented with shortness of breath. Chest x-ray on admission; mild pulm edema and bilateral pleural effusion CTA chest on admission showed moderate pleural effusion with bibasilar consolidation BNP elevated to 406 S/P left thoracentesis on 10/08/2023 with 1400 mL of portia fluid taken out -->> transudative nature. Pleural effusion likely secondary to heart failure. Pulmonology does not rec ommend serial thoracentesis in the future. Cardiology on board, being diuresed, patient will need daily scheduled diuresis upon discharge. Strict I's and O's, wean down oxygen as tolerated. Repeat CT Chest noted - no hydropneumothorax on rt seen on CXR, pulm to re- evaled, appreciate recs. Continue diuresis, continue telemetry. Monitor and replete electrolytes. Persistent atrial fibrillation-new diagnosis as of 08/18/2023 -Anticoagulation was previously deferred due to right upper extremity hematoma which happened during admission last time -Recently seen by cardiology on 09/11 -EKG on admission shows atrial fibrillation, On metoprolol; continue. Patient is not on anticoagulation due to upper extremity hematoma during recent admission. CKD stage III - Chronic, stable, trend am lab Dementia -Patient is AAO x 3; occasionally requires reorientation. DVT ppx: Heparin CODE: DNR/DNI Dispo: [facility] home, PT OT, CM to assist w/ DC plan. Likely 2 step prior to dc. Pt's dtr given phone call, Left voicemail to call us back and ask for dr kline. Please note the above document was generated using voice recognition software. It may contain grammatical, syntax or spelling errors. Any formal questions or concerns about the content, text or information contained within the body of this dictation should be directly addressed to the provider for clarification Admission and Anticipated Discharge Date Admission Date: October 08, 2023 Subjective Patient seen and examined at bedside. She reports that she is feeling somewhat sob today. Reports eating ok and moving bowels ok, denies chest pain. Denies fever or chills or cough or palpitations. Pt's sister was at bedside who was also updated on plan of care. Physical Exam Physical Exam: Constitutional: WD/WN, vitals as above, NAD, sitting up in bed, pleasant, conversing easily Respiratory: b/l decreased breath sound at bases. Occasional crackles. Cardiovascular: RRR, no murmur, no edema Vessels: no JVD or carotid bruit Chest: normal inspection of chest. Abdomen: normal bowel sounds, soft, nontender, no hepatosplenomegaly Musculoskeletal: no cyanosis or clubbing, extremities motor strength 5/5 Skin: no rashes, warm and dry normal turgor Neurologic: PERRL, EOMI, accommodation nl, no face palsy, no dysarthria CN's II- XI intact bilaterally and moves all extremities Psychiatric: A+Ox3, euthymic affect Results & Data Results & Data Vital Signs (Past 12 Hours) Vital Signs Temp Pulse Resp BP Pulse Ox O2 Del Method O2 Flow Rate 10/11/23 11:18 36.8 C 77 18 118/73 99 Nasal Cannula 2 10/11/23 08:30 Nasal Cannula 2 10/11/23 07:33 36.8 C 90 18 163/87 H 95 Nasal Cannula 1 (1) CHF exacerbation Heart failure type: diastolic Qualified Code(s): I50.33 - Acute on chronic diastolic (congestive) heart failure
[2023-10-12 05:05] LABS: BUN Creatinine Ratio 24.5 (10-20); Calcium 8.2 mg/dl (8.6-10.3); Creatinine Clr Calc Pharmacy 24.5 ml/min; Est GFR (African American) 34.5 ml/min; Est GFR (Non-African American) 29.8 ml/min
--- NOTE | 2023-10-12 07:25 | Cardiology Progress Note ---
Date of Service October 12, 2023 Assessment & Plan (1) Acute on chronic diastolic HF (heart failure): (2) Pleural effusion: (3) Persistent atrial fibrillation: (4) S/P AVR: (5) CAD (coronary artery disease): Plan IMPRESSION: 88-year-old female with acute on chronic heart failure preserved ejection fraction status post left-sided thoracentesis in the ER, 10/08/2023 PLAN: 1. Chronic heart failure with preserved ejection fraction -Chronic HFpEF, NYHA class 3 -S/p Left thoracentesis. CXR showing trace left PTX unchanged from 10/08- pulmonary following. Appreciate recommendations. 1. Being diuresed with IV Lasix 40 mg twice daily. Pulmonary re-evaluated this am-- no plans for repeat thoracentesis at this time. 2. 2g sodium restriction. Strict I&O. Daily weights. CHF EDU. 3. Monitor renal function and electrolytes daily. Potassium goal 4.0 and mag goal of 2.0. Replace as needed. 4. Consider eval for supplemental o2 prior to discharge-- 2-step. 2. Persistent atrial fibrillation (HCC) -Persistent atrial fibrillation, initially diagnosed, 08/18/2023 at [facility]. -Telemetry revealing rate controlled atrial fibrillation in the 80-100s. Patient asymptomatic. 1. Continue metoprolol succinate 75 mg daily 2. Anticoagulation previously deferred due to upper extremity hematoma while previously admitted. 3. Coronary artery disease involving creek coronary artery of creek heart without angina pectoris 4. Status post insertion of drug eluting coronary artery stent -Coronary artery disease/NSTEMI, cardiac catheterization 10/24/2019 with findings of a 99% thrombotic occlusion of the proximal LAD, subtotal chronic ostial occlusion of RCA with distal right coronary artery filling retrograde from the left to right collaterals, s/p successful PCI/SOULEYMANE to the proximal to mid LAD. -Stable, no angina. 1. Continue aspirin 81 mg daily and statin therapy with Lipitor 40 mg daily 5. S/P aortic valve replacement -Aortic valve stenosis status post bioprosthetic AVR (#21 mm vega Faulkner pericardial valve), 10/03/2007 -Stable gradients on inpatient echo dated 08/18/2023 1. Continue aspirin 81 mg daily 6. HTN, goal below 140/90 -Continue home dose of Imdur 30 mg daily. -BB dosage as stated above -No ACEi/ARB, prior history of hyperkalemia and renal dysfunction Case discussed with Dr. Yoon. Will follow. I spent a total of 30 minutes on the date of service in preparation, delivery, and documentation of the care provided to the patient excluding any time spent in the performance of separately billed services. WILLY Dominguez Department of Cardiology, [facility] This chart was completed in part utilizing Speech Voice Recognition Software. Grammatical errors, random word insertions, pronoun errors, and incomplete sentences are an occasional consequence of this system due to software limitations, ambient noise, and hardware issues. Any formal questions or concerns about the content, text, or information contained within the body of this dictation should be directly addressed to the provider for clarification. Admission and Anticipated Discharge Date Admission Date: October 08, 2023 Supervising Physician Co-Signing Physician Notes I have reviewed the advance practitioner's documentation, and I agree with, and take responsibility for the plan of care. 88-year-old female admitted with shortness of breath, acute heart failure with preserved ejection fraction and bilateral pleural effusions. Left-sided thoracentesis performed 10/08/2023 with small left apical pneumothorax. Notes continued shortness of breath. No changes overnight. Telemetry reveals rate controlled atrial fibrillation. PE: VSS. SaO2 99% on 2 L General: NAD, awake and alert. Heart: Irregular rhythm, 2/6 systolic ejection murmur. Lungs: Diminished breath sounds at the right base, diminished breath sounds at the left base with associated rales. No wheeze. Extremities: No edema. A/P: 88-year-old female with acute on chronic heart failure preserved ejection fraction status post left-sided thoracentesis with small left apical pneumothorax. Right-sided thoracentesis deferred for time being. Recommend maintain negative fluid balance. Continue Lasix to 40 mg IV twice daily. Monitor fluid balance, daily weight, GFR, and electrolytes while hospitalized. Patient will require daily diuretic dosing when discharged (previously treated with furosemide 20 mg on Sunday, Sunday, and Sunday only). Rate controlled atrial fibrillation on telemetry. Continue beta-pernell therapy. Patient is not anticoagulated due to upper extremity hematoma during prior hospitalization. I spent a total of 20 minutes on the date of service in preparation, delivery, and documentation of the care provided to this patient, excluding any time spent in the performance of separately billed services. Subjective 88-year-old female admitted to [facility] with acute on chronic diastolic CHF and hy poxia. Status post left-sided thoracentesis 10/08/2023. 10/08/2023: Hypervolemic on exam, diuresed with 40 mg of IV Lasix daily. Underwent left-sided thoracentesis in the ER yesterday removing 1400 mLs of portia colored fluid. Fluid was sent for cytology. CXR with small left pneumothorax 10/09/2023: CXR 10/09/2023: 1. No change in the small left apical pneumothorax. 2. Small bilateral pleural effusions, bibasilar densities, and mild congestive change persists. Ongoing diuresis with IV Lasix 40 mg daily HR elevated in AFIB (known)-- metoprolol succinate increased to 75 mg daily 10/10/2023: Repeat chest x-ray demonstrating right-sided pleural effusion, reaccumulation of left pleural effusion. IV Lasix increased to 40 mg twice daily. 10/11/2023: Ongoing diuresis with IV Lasix 40 mg twice daily Plans for questionable thoracentesis 10/11--following with pulmonary 10/12/2023: Labs: increase in Scr 1.02>>1.29>>1.46>>1.55. K stable. Tele: AFIB 80-90s I&O: -3.5L , minimal output over the last 24 hours, documented unmeasured voids. Weight:54 kg >>60 kg >>60.2 kg >> 60.8 kg >>59.6 kg Upon entrance into the room patient resting in bed. Ongoing shortness of breath. No chest pain, palpitations, dizziness, syncope or near syncope. No orthopnea, PND, or increased lower extremity edema. Wearing compression socks. No fever, chills, cough, hematochezia, melena, or hemoptysis. Review of Systems Review of Systems: All systems reviewed & are unremarkable except as noted in HPI & below Physical Exam Constitutional: + frail appearing; no acute distress Neck: normal visual inspection and trachea midline Respiratory: normal respiratory effort; no respiratory distress and no cough Auscultation: + diminished lung sounds (L >R) and + rales; no rhonchi and no wheezes Cardiovascular: Rate/Rhythm: regular rate and + irregularly irregular Heart Sounds: normal S1 and normal S2 Vessels: no JVD Extremities: + edema (trac e BL nonpitting, compression socks in place ) Gastrointestinal (Abdomen): normal bowel sounds, soft, nontender, no hepatosplenomegaly Psychiatric: A+Ox3, euthymic affect Results & Data Vital Signs (Past 12 Hours) Vital Signs Temp Pulse Pulse Resp BP BP Pulse Ox 10/12/23 03:06 36.4 C L 88 18 114/78 97 10/11/23 23:10 88 10/11/23 22:55 36.7 C 85 18 105/71 99 10/11/23 21:44 92 H 10/11/23 19:46 O2 Del Method O2 Flow Rate 10/12/23 03:06 Nasal Cannula 2 10/11/23 23:10 10/11/23 22:55 Nasal Cannula 2 10/11/23 21:44 10/11/23 19:46 Nasal Cannula 2 Laboratory Results Comprehensive Metabolic Panel 10/12/23 Range/Units 04:10 Sodium 136 (136-145) mmol/L Potassium 4.0 (3.5-5.1) mmol/L Chloride 100 (98-107) mmol/L Carbon Dioxide 29 (21-32) mmol/L BUN 38 H (6-23) mg/dl Creatinine 1.55 H (0.6-1.2) mg/dl Glucose 80 (70-99(Fasting)) mg/dl Calcium 8.2 L (8.6-10.3) mg/dl Intake and Output 10/11/23 10/12/23 10/12/23 22:59 06:59 14:59 Intake Total 880 / 880 Output Total 650 / 851 201 / 851 Balance 230 29 -201 29 Intake: Oral 880 / 880 Output: Urine Amount (Catheter) 650 / 850 200 / 850 Conrad/Indwelling 650 / 850 200 / 850 # Bowel Movements Other: Weight 59.6 kg Weight Measurement Method Standing Scale
--- NOTE | 2023-10-12 08:15 | Pulmonology Progress Note ---
Date of Service October 12, 2023 Assessment & Plan (1) Pleural effusion: (2) Acute respiratory failure with hypoxia: Plan Impression: 88-year-old female with dementia and diastolic heart failure admitted with shortness of breath and bilateral pleural effusions. Patient underwent thoracentesis 10/07 which confirmed a transudative process likely secondary to diastolic heart failure. There was initial concern that her chest x-ray demonstrated a hydropneumothorax on the contralateral side from the thoracentesis however this was not confirmed on CT scan and only demonstrated bilateral effusions. The pneumothorax on the left is getting smaller Recommendations: 1. Pleural effusions: Transudative. Continue with aggressive diuresis. Previous thoracentesis demonstrates transudative process. Suspect related to diastolic heart failure. Would continue diuresis until kidney function bumps or the patient becomes hemodynamically unstable. As she is minimally symptomatic currently and already had a small pneumothorax with thoracentesis previously, would favor medical treatment rather than invasive procedures at this point in time which the patient is agreeable to. She has had a mild increase in her BUN and creatinine and so stabilization may be required before considering additional attempts at diuresis. If she were to become significantly symptomatic and want to pursue additional thoracentesis, a discussion could be held at that time regarding risks and benefits of the procedure. As per my prior note, pleural effusions and heart failure requiring thoracentesis that are bilateral in nature portend poor prognosis. The prognosis is worse if these effusions are refractory to medical therapy. 2. Hypoxemic respiratory failure: Secondary to #1. Saturating well on 2L. Would titrate down to off if able. 3. Pneumothorax postthoracentesis: Suspect pneumo ex vacuo. Decreasing in size. No indication for additional imaging or follow-up at this point in time. Thank you for allowing us to participate in the care of this patient. Admission and Anticipated Discharge Date Admission Date: October 08, 2023 Subjective Patient seen and examined. EMR reviewed. Discussed with nursing at bedside. Patient states she is doing fine. She denies any respiratory problems. She is still intermittently confused and according to the nurse was up and around yesterday although the patient states she has not walked at all. She is not complaining of any cough or sputum production. No chest pain or palpitations. No significant lower extremity edema. Review of Systems 2 Review of Systems: All systems reviewed & are unremarkable except as noted in Subjective Physical Exam 2 Constitutional: WD/WN, vitals as above Neck: trachea midline, no thyromegaly Respiratory: no respiratory distress, no labored breathing, no cough and not tachypneic Auscultation: + diminished lung sounds Cardiovascular: RRR, no murmur, no edema Gastrointestinal (Abdomen): normal bowel sounds, soft, nontender, no hepatosplenomegaly Musculoskeletal: Extremities: extremities normal to inspection Skin: no rashes, warm and dry Lymphatic: no cervical lymphadenopathy Results & Data Results & Data Vital Signs (Past 12 Hours) Vital Signs Temp Pulse Pulse Resp BP BP Pulse Ox 10/12/23 07:49 10/12/23 07:30 36.6 C 91 H 18 136/71 99 10/12/23 03:06 36.4 C L 88 18 114/78 97 10/11/23 23:10 88 10/11/23 22:55 36.7 C 85 18 105/71 99 10/11/23 21:44 92 H O2 Del Method O2 Flow Rate 10/12/23 07:49 Nasal Cannula 2 10/12/23 07:30 Nasal Cannula 1 10/12/23 03:06 Nasal Cannula 2 10/11/23 23:10 10/11/23 22:55 Nasal Cannula 2 10/11/23 21:44 Laboratory Results 10/11/23 04:18 10/12/23 04:10 PG Care Time/CCT Total # of Minutes Spent Total Time Spent with Patient: Total time spent is greater than 50% in coordination of care (as documented) at patient's floor/unit and/or counseling patient: Coding Level of Care Code 17938 SUB INP/OBS CARE 2/35MIN Diagnoses Pleural effusion J90 Acute respiratory failure with hypoxia J96.01
--- NOTE | 2023-10-12 16:03 | Hospitalist Progress Note ---
Date of Service October 12, 2023 Assessment & Plan (1) CHF exacerbation: (2) Chronic diastolic heart failure: (3) Chronic atrial fibrillation: (4) Acute respiratory failure with hypoxia: (5) Pleural effusion: (6) CKD (chronic kidney disease), stage III: (7) Dementia: Plan: Acute on chronic diastolic heart failure Acute respiratory failure with hypoxia Bilateral pleural effusions status post left-sided thoracentesis on 10/08/2023 Patient presented with shortness of breath. Chest x-ray on admission; mild pulm edema and bilateral pleural effusion CTA chest on admission showed moderate pleural effusion with bibasilar consolidation BNP elevated to 406 S/P left thoracentesis on 10/08/2023 with 1400 mL of portia fluid taken out -->> transudative nature. Pleural effusion likely secondary to heart failure. Pulmonology does not rec ommend serial thoracentesis in the future. Cardiology on board, being diuresed, patient will need daily scheduled diuresis upon discharge. Strict I's and O's, wean down oxygen as tolerated. Repeat CT Chest noted - no hydropneumothorax on rt seen on CXR, pulm re-evaled, appreciate recs - conservative mx for now. Continue diuresis, continue telemetry. Monitor and replete electrolytes. Persistent atrial fibrillation-new diagnosis as of 08/18/2023 -Anticoagulation was previously deferred due to right upper extremity hematoma which happened during admission last time -Recently seen by cardiology on 09/11 -EKG on admission shows atrial fibrillation, On metoprolol; continue. Patient is not on anticoagulation due to upper extremity hematoma during recent admission. CKD stage III - Chronic, stable, trend am lab Dementia -Patient is AAO x 3; occasionally requires reorientation. DVT ppx: Heparin CODE: DNR/DNI Dispo: [facility] personal assisted, PT OT, CM to assist w/ DC plan. Likely 2 step prior to dc. pt's dtr updated in detail 10/10 over the phone. answered all her questions. Please note the above document was generated using voice recognition software. It may contain grammatical, syntax or spelling errors. Any formal questions or concerns about the content, text or information contained within the body of this dictation should be directly addressed to the provider for clarification Admission and Anticipated Discharge Date Admission Date: October 08, 2023 Subjective Patient seen and examined at bedside. She reports that she is feeling some improvement in her sob today. Reports eating ok and moving bowels ok, denies chest pain. Denies fever or chills or cough or palpitations. Physical Exam Physical Exam: Constitutional: WD/WN, vitals as above, NAD, sitting up in bed, pleasant, conversing easily Respiratory: b/l decreased breath sound at bases. Occasional crackles. Cardiovascular: RRR, no murmur, no edema Vessels: no JVD or carotid bruit Chest: normal inspection of chest. Abdomen: normal bowel sounds, soft, nontender, no hepatosplenomegaly Musculoskeletal: no cyanosis or clubbing, extremities motor strength 5/5 Skin: no rashes, warm and dry normal turgor Neurologic: PERRL, EOMI, accommodation nl, no face palsy, no dysarthria CN's II- XI intact bilaterally and moves all extremities Psychiatric: A+Ox3, euthymic affect Results & Data Results & Data Vital Signs (Past 12 Hours) Vital Signs Temp Pulse Resp BP BP Pulse Ox O2 Del Method 10/12/23 15:50 36.4 C L 90 18 123/72 99 Nasal Cannula 10/12/23 11:22 36.9 C 76 19 93/52 L 97 Nasal Cannula 10/12/23 07:49 Nasal Cannula 10/12/23 07:30 36.6 C 91 H 18 136/71 99 Nasal Cannula O2 Flow Rate 10/12/23 15:50 2 10/12/23 11:22 10/12/23 07:49 2 10/12/23 07:30 1 (1) CHF exacerbation Heart failure type: diastolic Qualified Code(s): I50.33 - Acute on chronic diastolic (congestive) heart failure
[2023-10-13 05:14] LABS: Est GFR (African American) 41.9 ml/min; Est GFR (Non-African American) 36.2 ml/min; Potassium 3.8 mmol/L (3.5-5.1)
[2023-10-13 05:15] LABS: BUN Creatinine Ratio 27.3 (10-20); Calcium 8.2 mg/dl (8.6-10.3); Creatinine Clr Calc Pharmacy 28.3 ml/min; Magnesium 1.9 mg/dl (1.7-2.4); Phosphorus 3.5 mg/dl (2.5-4.9)
--- NOTE | 2023-10-13 09:34 | Pulmonology Progress Note ---
Date of Service October 13, 2023 Assessment & Plan (1) Pleural effusion: (2) Acute respiratory failure with hypoxia: Plan Impression: 88-year-old female with dementia and diastolic heart failure admitted with shortness of breath and bilateral pleural effusions. She is relatively asymptomatic at this point. Recommendations: 1. Pleural effusions: Transudative. Due to heart failure. continue diuresis. No indication for additional invasive procedures in the absence of clinical symptoms 2. Hypoxemic respiratory failure: Secondary to #1. Saturating well on 2L. Would titrate down to off if able. 3. Pneumothorax postthoracentesis: Suspect pneumo ex vacuo. Decreasing in size. No indication for additional imaging or follow-up at this point in time. Pulmonary will sign off at this point in time. Feel free to contact us with questions or concerns Admission and Anticipated Discharge Date Admission Date: October 08, 2023 Subjective Patient seen and examined. EMR reviewed. Discussed with bedside nurse. The patient is without respiratory complaints currently. She states she is breathing okay. She is not coughing or expectorating phlegm. She has no new respiratory problems. Review of Systems 2 Review of Systems: All systems reviewed & are unremarkable except as noted in Subjective Physical Exam 2 Constitutional: WD/WN, vitals as above Neck: trachea midline, no thyromegaly Respiratory: no respiratory distress, no labored breathing, no cough and not tachypneic Auscultation: + diminished lung sounds Cardiovascular: RRR, no murmur, no edema Gastrointestinal (Abdomen): normal bowel sounds, soft, nontender, no hepatosplenomegaly Musculoskeletal: Extremities: extremities normal to inspection Skin: no rashes, warm and dry Lymphatic: no cervical lymphadenopathy Results & Data Results & Data Vital Signs (Past 12 Hours) Vital Signs Temp Pulse Resp BP Pulse Ox O2 Del Method O2 Flow Rate 10/13/23 08:00 Nasal Cannula 2 10/13/23 07:35 36.9 C 92 H 17 131/72 96 Nasal Cannula 2 10/13/23 03:34 36.8 C 90 17 106/66 93 Nasal Cannula 2 10/12/23 22:59 36.8 C 90 18 101/58 L 92 Nasal Cannula 2 Laboratory Results 10/11/23 04:18 10/13/23 04:34 Diagnostic Findings No new images PG Care Time/CCT Total # of Minutes Spent Total Time Spent with Patient: Total time spent is greater than 50% in coordination of care (as documented) at patient's floor/unit and/or counseling patient: Coding Level of Care Code 70176 SUB INP/OBS CARE 235MIN Diagnoses Pleural effusion J90 Acute respiratory failure with hypoxia J96.01
--- NOTE | 2023-10-13 14:48 | Hospitalist Progress Note ---
Date of Service October 13, 2023 Assessment & Plan (1) CHF exacerbation: (2) Chronic diastolic heart failure: (3) Chronic atrial fibrillation: (4) Acute respiratory failure with hypoxia: (5) Pleural effusion: (6) CKD (chronic kidney disease), stage III: (7) Dementia: Plan: Acute on chronic diastolic heart failure Acute respiratory failure with hypoxia Bilateral pleural effusions status post left-sided thoracentesis on 10/08/2023 Patient presented with shortness of breath. Chest x-ray on admission; mild pulm edema and bilateral pleural effusion CTA chest on admission showed moderate pleural effusion with bibasilar consolidation BNP elevated to 406 S/P left thoracentesis on 10/08/2023 with 1400 mL of portia fluid taken out -->> transudative nature. Pleural effusion likely secondary to heart failure. Pulmonology does not rec ommend serial thoracentesis in the future. Cardiology on board, being diuresed, patient will need daily scheduled diuresis upon discharge. Strict I's and O's, wean down oxygen as tolerated. Repeat CT Chest noted - no hydropneumothorax on rt seen on CXR, pulm re-evaled, appreciate recs - conservative mx for now. Continue diuresis, continue telemetry. Monitor and replete electrolytes. kcl 20 meq x 1 dose, labs in am. Persistent atrial fibrillation-new diagnosis as of 08/18/2023 -Anticoagulation was previously deferred due to right upper extremity hematoma which happened during admission last time -Recently seen by cardiology on 09/11 -EKG on admission shows atrial fibrillation, On metoprolol; continue. Patient is not on anticoagulation due to upper extremity hematoma during recent admission. CKD stage III - Chronic, stable, trend am lab Dementia -Patient is AAO x 3; occasionally requires reorientation. DVT ppx: Heparin CODE: DNR/DNI Dispo: [facility] personal jail, PT OT, CM to assist w/ DC plan. Likely 2 step prior to dc. pt's dtr updated in detail 10/10 over the phone. answered all her questions. Please note the above document was generated using voice recognition software. It may contain grammatical, syntax or spelling errors. Any formal questions or concerns about the content, text or information contained within the body of this dictation should be directly addressed to the provider for clarification Admission and Anticipated Discharge Date Admission Date: October 08, 2023 Subjective Patient seen and examined at bedside. She reports that she is feeling some improvement in her sob today. Reports eating ok and moving bowels ok, denies chest pain. Denies fever or chills or cough or palpitations. Pt's sister at bedside who was also updated on plan of care. Physical Exam Physical Exam: Constitutional: WD/WN, vitals as above, NAD, sitting up in bed, pleasant, conversing easily Respiratory: b/l decreased breath sound at bases. Occasional crackles. Cardiovascular: RRR, no murmur, no edema Vessels: no JVD or carotid bruit Chest: normal inspection of chest. Abdomen: normal bowel sounds, soft, nontender, no hepatosplenomegaly Musculoskeletal: no cyanosis or clubbing, extremities motor strength 5/5 Skin: no rashes, warm and dry normal turgor Neurologic: PERRL, EOMI, accommodation nl, no face palsy, no dysarthria CN's II- XI intact bilaterally and moves all extremities Psychiatric: A+Ox3, euthymic affect Results & Data Results & Data Vital Signs (Past 12 Hours) Vital Signs Temp Pulse Resp BP BP Pulse Ox O2 Del Method 10/13/23 12:09 36.5 C 76 18 108/73 99 Room Air 10/13/23 08:00 Nasal Cannula 10/13/23 07:35 36.9 C 92 H 17 131/72 96 Nasal Cannula 10/13/23 03:34 36.8 C 90 17 106/66 93 Nasal Cannula O2 Flow Rate 10/13/23 12:09 10/13/23 08:00 2 10/13/23 07:35 2 10/13/23 03:34 2 (1) CHF exacerbation Heart failure type: diastolic Qualified Code(s): I50.33 - Acute on chronic diastolic (congestive) heart failure
[2023-10-13] MEDS: POTASSIUM CHLORIDE CRTAB 20 MEQ TABCR PO STA (15:17)
--- NOTE | 2023-10-13 20:05 | Cardiology Progress Note ---
Date of Service October 13, 2023 Assessment & Plan (1) Acute on chronic diastolic HF (heart failure): (2) Pleural effusion: (3) Persistent atrial fibrillation: (4) S/P AVR: (5) CAD (coronary artery disease): Plan 88-year-old female admitted with shortness of breath, acute heart failure with preserved ejection fraction and bilateral pleural effusions. Left-sided thoracentesis performed 10/08/2023 with small left apical pneumothorax. Telemetry reveals rate controlled atrial fibrillation. not on anticoagulation due to upper extremity hematoma in previous admissions coronary artery disease with prior stenting stable, bioprosthetic aortic valve with stable valve gradients currently on Lasix 40 mg IV twice daily she has diuresed a total of 3.9 L net negative this admission continue with IV Lasix for 1 more day and then can transition to p.o. Lasix 40 mg on discharge atrial fibrillation continue with metoprolol 75 mg daily not on anticoagulation I spent a total of 40 minutes coordinating, documenting, and providing care for this patient excluding time spent in the performance of separately billed services or time spent by another provider/QHP. Admission and Anticipated Discharge Date Admission Date: October 08, 2023 Subjective Patient seen and examined has been feeling better lower extremity edema has improved still fatigued Review of Systems Constitutional: + fatigue Respiratory: + cough, + dyspnea and + dyspnea on exer tion Cardiovascular: + dyspnea and + dyspnea on exertion; no chest pain and no paroxysmal nocturnal dyspnea Gastrointestinal: no nausea Physical Exam Constitutional: + frail appearing; no acute distress Neck: no JVP Respiratory: normal respiratory effort Auscultation: no crackles and no rhonchi Cardiovascular: Rate/Rhythm: regular rate and + irregularly irregular Heart Sounds: + murmur trace bilateral edema Gastrointestinal (Abdomen): Percussion/Palpation: abdomen soft Skin: no rashes, warm and dry Results & Data Vital Signs (Past 12 Hours) Vital Signs Temp Pulse Resp BP BP Pulse Ox O2 Del Method 10/13/23 19:00 36.3 C L 79 18 120/71 93 Nasal Cannula 10/13/23 15:54 36.6 C 92 H 17 119/84 100 Nasal Cannula 10/13/23 12:09 36.5 C 76 18 108/73 99 Room Air 10/13/23 08:00 Nasal Cannula O2 Flow Rate 10/13/23 19:00 2 10/13/23 15:54 2 10/13/23 12:09 10/13/23 08:00 2 Laboratory Results Comprehensive Metabolic Panel 10/13/23 Range/Units 04:34 Sodium 136 (136-145) mmol/L Potassium 3.8 (3.5-5.1) mmol/L Chloride 100 (98-107) mmol/L Carbon Dioxide 30 (21-32) mmol/L BUN 36 H (6-23) mg/dl Creatinine 1.32 H (0.6-1.2) mg/dl Glucose 89 (70-99(Fasting)) mg/dl Calcium 8.2 L (8.6-10.3) mg/dl Intake and Output 10/13/23 10/13/23 10/13/23 06:59 14:59 22:59 Intake Total 650 / 990 410 / 410 Output Total 600 / 1400 402 / 402 Balance 50 / -410 Intake: Oral 650 / 990 410 / 410 Output: Urine Amount (Catheter) 600 / 1400 400 / 400 Conrad/Indwelling 600 / 1400 400 / 400 # Bowel Movements 2 / 2 Other: # Unmeasured Voids 1 Weight 59 kg Weight Measurement Method Standing Scale
[2023-10-14 05:25] LABS: BUN Creatinine Ratio 26.8 (10-20); Calcium 8.5 mg/dl (8.6-10.3); Est GFR (African American) 51.2 ml/min; Est GFR (Non-African American) 44.1 ml/min; Magnesium 1.8 mg/dl (1.7-2.4); Potassium 4.2 mmol/L (3.5-5.1)
[2023-10-14] MEDS: MAGNESIUM SULFATE / D5W 1 GM/100 ML BAG IV SCH (09:19)
--- NOTE | 2023-10-14 13:46 | Hospitalist Progress Note ---
Date of Service October 14, 2023 Assessment & Plan (1) CHF exacerbation: (2) Chronic diastolic heart failure: (3) Chronic atrial fibrillation: (4) Acute respiratory failure with hypoxia: (5) Pleural effusion: (6) CKD (chronic kidney disease), stage III: (7) Dementia: Plan: Acute on chronic diastolic heart failure Acute respiratory failure with hypoxia Bilateral pleural effusions status post left-sided thoracentesis on 10/08/2023 Patient presented with shortness of breath. Chest x-ray on admission; mild pulm edema and bilateral pleural effusion CTA chest on admission showed moderate pleural effusion with bibasilar consolidation BNP elevated to 406 S/P left thoracentesis on 10/08/2023 with 1400 mL of portia fluid taken out -->> transudative nature. Pleural effusion likely secondary to heart failure. Pulmonology does not rec ommend serial thoracentesis in the future. Cardiology on board, being diuresed, patient will need daily scheduled diuresis upon discharge. Will change to daily 40 mg po lasix from 10/14 per cards recs. Strict I's and O's, wean down oxygen as tolerated. Repeat CT Chest noted - no hydropneumothorax on rt seen on CXR, pulm re-evaled, appreciate recs - conservative mx for now. Continue diuresis, continue telemetry. Monitor and replete electrolytes. labs in am. Persistent atrial fibrillation-new diagnosis as of 08/18/2023 -Anticoagulation was previously deferred due to right upper extremity hematoma which happened during admission last time -Recently seen by cardiology on 09/11 -EKG on admission shows atrial fibrillation, On metoprolol; continue. Patient is not on anticoagulation due to upper extremity hematoma during recent admission. CKD stage III - Chronic, stable, trend am lab Dementia -Patient is AAO x 3; occasionally requires reorientation. DVT ppx: Heparin CODE: DNR/DNI Dispo: [facility] home, PT OT, CM to assist w/ DC plan. Likely 2 step prior to dc. Possible dc tg. pt's dtr updated in detail 10/10 over the phone. answered all her questions. Please note the above document was generated using voice recognition software. It may contain grammatical, syntax or spelling errors. Any formal questions or concerns about the content, text or information contained within the body of this dictation should be directly addressed to the provider for clarification Admission and Anticipated Discharge Date Admission Date: October 08, 2023 Subjective Patient seen and examined at bedside. She reports no increased SOB Reports eating ok and moving bowels ok, denies chest pain. Denies fever or chills or cough or palpitations. Pt's sister at bedside who was also updated on plan of care. Physical Exam Physical Exam: Constitutional: WD/WN, vitals as above, NAD, sitting up in bed, pleasant, conversing easily Respiratory: b/l decreased breath sound at bases. Occasional crackles. Cardiovascular: RRR, no murmur, no edema Vessels: no JVD or carotid bruit Chest: normal inspection of chest. Abdomen: normal bowel sounds, soft, nontender, no hepatosplenomegaly Musculoskeletal: no cyanosis or clubbing, extremities motor strength 5/5 Skin: no rashes, warm and dry normal turgor Neurologic: PERRL, EOMI, accommodation nl, no face palsy, no dysarthria CN's II- XI intact bilaterally and moves all extremities Psychiatric: A+Ox3, euthymic affect Results & Data Results & Data Vital Signs (Past 12 Hours) Vital Signs Temp Pulse Resp BP BP Pulse Ox O2 Del Method 10/14/23 11:24 36.8 C 84 18 106/69 96 Room Air 10/14/23 08:00 Nasal Cannula 10/14/23 07:20 37.0 C 89 18 130/71 100 Nasal Cannula 10/14/23 03:00 36.4 C L 82 18 130/79 98 Nasal Cannula O2 Flow Rate 10/14/23 11:24 10/14/23 08:00 2 10/14/23 07:20 2 10/14/23 03:00 2 (1) CHF exacerbation Heart failure type: diastolic Qualified Code(s): I50.33 - Acute on chronic diastolic (congestive) heart failure
--- NOTE | 2023-10-14 18:12 | Cardiology Progress Note ---
Date of Service October 14, 2023 Assessment & Plan (1) Acute on chronic diastolic HF (heart failure): (2) Pleural effusion: (3) Persistent atrial fibrillation: (4) S/P AVR: (5) CAD (coronary artery disease): Plan 88-year-old female admitted with shortness of breath, acute heart failure with preserved ejection fraction and bilateral pleural effusions. Left-sided thoracentesis performed 10/08/2023 with small left apical pneumothorax. Telemetry reveals rate controlled atrial fibrillation. not on anticoagulation due to upper extremity hematoma in previous admissions coronary artery disease with prior stenting stable, bioprosthetic aortic valve with stable valve gradients currently on Lasix 40 mg IV twice daily she has diuresed a net negative of - 4.6 liters currently on lasix 40 Iv BID can transition to p.o. Lasix 40 mg on discharge atrial fibrillation continue with metoprolol 75 mg daily not on anticoagulation I spent a total of 40 minutes coordinating, documenting, and providing care for this patient excluding time spent in the performance of separately billed services or time spent by another provider/QHP. Admission and Anticipated Discharge Date Admission Date: October 08, 2023 Subjective patient seen and examined feeling better sob has improved Review of Systems Constitutional: + fatigue Respiratory: + cough, + dyspnea and + dyspnea on exer tion Cardiovascular: + dyspnea on exertion, + orthopnea and + edema; no chest pain and no paroxysmal nocturnal dyspnea Gastrointestinal: no abdominal pain and no nausea Musculoskeletal: + back pain Physical Exam Constitutional: + frail appearing Eyes: + anicteric sclerae Respiratory: normal respiratory effort Auscultation: + diminished lung sounds Cardiovascular: Rate/Rhythm: regular rate and + irregularly irregular Heart Sounds: + murmur Extremities: + pedal edema Gastrointestinal (Abdomen): Percussion/Palpation: abdomen soft Results & Data Vital Signs (Past 12 Hours) Vital Signs Temp Pulse Resp BP BP Pulse Ox O2 Del Method 10/14/23 15:50 36.6 C 92 H 19 118/67 96 Room Air 10/14/23 11:24 36.8 C 84 18 106/69 96 Room Air 10/14/23 08:00 Nasal Cannula 10/14/23 07:20 37.0 C 89 18 130/71 100 Nasal Cannula O2 Flow Rate 10/14/23 15:50 10/14/23 11:24 10/14/23 08:00 2 10/14/23 07:20 2 Laboratory Results Comprehensive Metabolic Panel 10/14/23 Range/Units 04:36 Sodium 137 (136-145) mmol/L Potassium 4.2 (3.5-5.1) mmol/L Chloride 100 (98-107) mmol/L Carbon Dioxide 31 (21-32) mmol/L BUN 30 H (6-23) mg/dl Creatinine 1.12 (0.6-1.2) mg/dl Glucose 88 (70-99(Fasting)) mg/dl Calcium 8.5 L (8.6-10.3) mg/dl Intake and Output 10/14/23 10/14/23 10/14/23 06:59 14:59 22:59 Intake Total 0 / 460 475 / 475 Output Total 500 / 1652 Balance -500 / -1192 474 / 474 Intake: IV 100 / 100 Magnesium Sulfate / D5w 1 gm In 100 / 100 100 ml @ 50 mls/hr IV Q2H [facility] Rx#:[id number] Oral 0 / 460 375 / 375 Output: Urine Amount (Catheter) 500 / 1650 Conrad/Indwelling 500 / 1650 # Bowel Movements Other: Weight 60.827 kg Weight Measurement Method Built [facility]
[2023-10-15 05:25] LABS: Calcium 8.5 mg/dl (8.6-10.3); Creatinine Clr Calc Pharmacy 31.5 ml/min; Est GFR (African American) 46.6 ml/min; Est GFR (Non-African American) 40.2 ml/min; Magnesium 2.1 mg/dl (1.7-2.4); Potassium 4.1 mmol/L (3.5-5.1)
[2023-10-15] MEDS: FUROSEMIDE 40 MG TAB PO SCH (08:23)
--- NOTE | 2023-10-15 11:33 | Cardiology Progress Note ---
Date of Service October 15, 2023 Assessment & Plan (1) Acute on chronic diastolic HF (heart failure): (2) Pleural effusion: (3) Persistent atrial fibrillation: (4) S/P AVR: (5) CAD (coronary artery disease): Plan Assessment: 88-year-old female admitted with shortness of breath, acute heart failure with preserved ejection fraction and bilateral pleural effusions. Left- sided thoracentesis performed 10/08/2023 with small left apical pneumothorax. Telemetry continues to demonstrate rate controlled atrial fibrillation. not on anticoagulation due to upper extremity hematoma in previous admissions coronary artery disease with prior stenting stable, bioprosthetic aortic valve with stable valve gradients Plan: 1. Acute on Chronic diastolic HF 2. Pleural effusion -Patient appears euvolemic on physical exam today. offers no significant complaints. -Remains on room air, saturating well. --386 fluid balance today -Ok to Transition to Lasix 40mg PO Daily -maintain serum K > 4.0 -Maintain serum Mag > 2.0 -CHF teaching. -Recommend compression stockings at discharge to assist with fluid mobilization in the OP setting 3. Persistent atrial fibrillation -Remains rate controlled on telemetry. -Continue Toprol xl 75mg PO QD -Not on oral AC therapy due to prior hematoma 4. History of AVR: -Most recent echo 07/2023 which was performed in the setting of A-fib with RVR, patient was hyperdynamic at that time. Bioprosthetic aortic valve with normal gradients and no prosthetic regurgitation. 5. CAD: -Doing well from a cardiac standpoint. No new concerns. -BP well controlled. -No acute events on telemetry -Continue ASA 81mg, Imdur, Toprol xl, and Atorvastatin as GDMT Plan is to continue with medications as noted above and may be discharged when appropriate per primary team. Case has been discussed with Dr. Figueroa. Further recommendations regarding plan of care as per his assessment. I spent a total of 30 minutes on the date of service in preparation, delivery, documentation of the care provided to the patient excluding any time spent in the performance of separately billed services. WILLY Bautista [facility] Admission and Anticipated Discharge Date Admission Date: October 08, 2023 Supervising Physician Co-Signing Physician Notes Patient was seen and personally examined, records reviewed Patient anticipating discharge later today. Clinically improved from heart failure standpoint. No respiratory distress CHF instructions discussed. Patient at personal care facility with recommended daily weights Sodium and fluid restriction Diuretic added and medication adjustments as above Subjective 10/14/24: patient seen and examined in follow up today. Labs, vitals, diagnostics and documentation reviewed. patient is sitting out of bed in chair today with no acute complaints. She states that she doesn't feel "100% yet", but notes significant improvement in her breathing. Denies any chest pain, pressure, palpitations, shortness of breath, PND, pre-syncope, syncope or edema. She reports that she ambulated in the halls yesterday and felt well. Review of telemetry demonstrates A-fib rate controlled in the 's, no acute events overnight. Review of Systems Review of Systems: All systems reviewed & are unremarkable except as noted in HPI & below Physical Exam Constitutional: well developed and well nourished; no acute distress Neck: normal visual inspection and trachea midline Respiratory: normal respiratory effort, lungs clear to auscultation no respiratory distress Cardiovascular: Rate/Rhythm: + irregularly irregular Heart Sounds: normal S1 and normal S2; no murmur Vessels: no JVD Extremities: no edema Skin: no rashes, warm and dry normal turgor Psychiatric: A+Ox3, euthymic affect Results & Data Vital Signs (Past 12 Hours) Vital Signs Temp Pulse Pulse Resp BP BP Pulse Ox 10/15/23 07:34 37.1 C 92 H 18 128/78 95 10/15/23 07:30 83 10/15/23 03:00 36.8 C 85 17 107/63 97 10/15/23 00:00 90 O2 Del Method 10/15/23 07:34 Room Air 10/15/23 07:30 10/15/23 03:00 Room Air 10/15/23 00:00 Laboratory Results Comprehensive Metabolic Panel 10/15/23 Range/Units 04:33 Sodium 135 L (136-145) mmol/L Potassium 4.1 (3.5-5.1) mmol/L Chloride 98 (98-107) mmol/L Carbon Dioxide 32 (21-32) mmol/L BUN 29 H (6-23) mg/dl Creatinine 1.21 H (0.6-1.2) mg/dl Glucose 98 (70-99(Fasting)) mg/dl Calcium 8.5 L (8.6-10.3) mg/dl Intake and Output 10/14/23 10/15/23 10/15/23 22:59 06:59 14:59 Intake Total 340 / 1015 200 / 1015 Output Total 450 / 1401 950 / 1401 Balance -110 / -386 -750 / -386 Intake: IV 100 / 200 Magnesium Sulfate / D5w 1 gm In 100 / 200 100 ml @ 50 mls/hr IV Q2H [facility] Rx#:[id number] Oral 240 / 815 200 / 815 Output: Urine Amount (Catheter) 450 / 1400 950 / 1400 Conrad/Indwelling 450 / 1400 950 / 1400 Other: Weight 61.9 kg Weight Measurement Method Built in [facility]
--- NOTE | 2023-10-15 14:23 | Discharge Summary ---
Date of Service October 15, 2023 Admission HPI Per Admitting Provider 88 yo F with bioprosthetic aortic valve replacement in 2007 at [facility]. In September 2019 she presented with heart failure and a NSTEMI and declined heart catheterization only to return two weeks later to the hospital with additional chest pain and a NSTEMI. She underwent cardiac catheterization at that point which showed a high grade stenosis in the mid LAD as well as a high grade stenosis in the right coronary artery with collaterals. CAD s/p PCI. She was recently admitted to this facility from 08/18-08/31 2023 where she was newly diagnosed with atrial fibrillation and treated for acute on chronic heart failure. At that time CXR showed large bilateral pleural effusions. She was diuresed with Lasix and discharged back to [facility] living. She is also noted to have dementia in the chart, today patient is alert and oriented x 2 and answers all my questions without difficulty. She recalls specific events from her previous hospitalization. Today she presents states that she woke up this morning having a great day, and then was brought over here. She is unsure if she had low pulse ox over at the facility and that is when she is actually here. She has been ambulating with use of a walker, states that she can walk down the hallway but then becomes short of breath. She does not require any supplemental O2 at baseline. Her sister, Kelly, is here with her at bedside and supports the history. Sister is unable to answer specific medical questions, and defers information to the patients daughter, who resides in [place]. Kelly is going to call pts daughter to let her know Batsheva is being admitted. Encouraged both to call the hospital in regards to any questions. Noted again on CXR are bilateral pleural effusions. Patient is on 1L via NC with O2 sats 87% to 90% at rest in bed. Admission Exam Per Admitting Provider General: awake, alert, no apparent distress, answers all my questions appropriately, oriented x 3, elderly white female Head: Normocephalic, atraumatic ENT: PERRL, EOMI, no pharyngeal exudate, mucous membranes moist Chest: On 1 L NC, O2 sats that is between 87 to 92% at rest in bed, no co nversational dyspnea, + crackles, absent breath sounds at bases bilaterally. Nodular bony mass over one of the left posterior ribs, nonpainful, pt reports this has been present for years Cardiac: Irregularly irregular, rate controlled no murmur, no JVD, normal peripheral pulses, good capillary refill Abdominal: NABS x 4 quadrants, soft, nondistended, nontender to palpation, no rebound or guarding Extremities: Normal inspection, + trace peripheral edema, no erythema, calfs nontender to palpation Psych: Normal mood and affect Neuro: AAO x 3, strength intact bilaterally and rated 5/5, no motor deficits, speech is clear, no peripheral sensory deficits Principal Diagnosis Acute on chronic diastolic heart failure Discharge Exam Constitutional: WD/WN, vitals as above, NAD, sitting up in bed, pleasant, conversing easily Respiratory: b/l decreased breath sound at bases. Occasional crackles - improving Cardiovascular: RRR, no murmur, no edema Vessels: no JVD or carotid bruit Chest: normal inspection of chest. Abdomen: normal bowel sounds, soft, nontender, no hepatosplenomegaly Musculoskeletal: no cyanosis or clubbing, extremities motor strength 5/5 Skin: no rashes, warm and dry normal turgor Neurologic: PERRL, EOMI, accommodation nl, no face palsy, no dysarthria CN's II- XI intact bilaterally and moves all extremities Psychiatric: A+Ox3, euthymic affect Discharge Data Allergies Allergy/AdvReac Type Severity Reaction Status Date / Time allopurinol Allergy Unknown ON Verified 08/18/23 11:23 [facility] Cephalosporins Allergy Unknown ON Verified 08/18/23 11:23 [facility] gramicidin D [From Neocidin] Allergy Unknown Redness of Verified 08/18/23 11:23 Skin neomycin [From Neocidin] Allergy Unknown Redness of Verified 08/18/23 11:23 Skin polymyxin B [From Neocidin] Allergy Unknown Redness of Verified 08/18/23 11:23 Skin chocolate AdvReac Unknown Verified 08/18/23 11:28 Consultations 10/08/23 10:39 ED Decision to Admit Stat 10/08/23 11:09 Consult Cardiology Routine 10/08/23 11:29 Consult Pulmonology Routine Ordered Studies 10/08/23 11:58 CT angio chest PE protocol Routine 10/10/23 16:48 CT chest diagnostic wo con Routine Hospital Course (1) CHF exacerbation: (2) Chronic diastolic heart failure: (3) Chronic atrial fibrillation: (4) Acute respiratory failure with hypoxia: (5) Pleural effusion: (6) CKD (chronic kidney disease), stage III: (7) Dementia: Acute on chronic diastolic heart failure Acute respiratory failure with hypoxia Bilateral pleural effusions status post left-sided thoracentesis on 10/08/2023 Patient presented with shortness of breath. Chest x-ray on admission; mild pulm edema and bilateral pleural effusion CTA chest on admission showed moderate pleural effusion with bibasilar consolidation BNP elevated to 406 S/P left thoracentesis on 10/08/2023 with 1400 mL of portia fluid taken out -->> transudative nature. Pleural effusion likely secondary to heart failure. Pulmonology does not recommend serial thoracentesis in the future. Repeat CT Chest noted - no hydropneumothorax on rt seen on CXR, pulm re-evaled, appreciate recs - conservative mx for now. Cardiology evaluated, Lasix 40 mg daily. Follow-up with cardiology in 2 to 4 weeks time upon discharge. Heart healthy diet, low-sodium diet, fluid restriction of 1500 mL a day. Persistent atrial fibrillation-new diagnosis as of 08/18/2023 -Anticoagulation was previously deferred due to right upper extremity hematoma which happened during admission last time -Recently seen by cardiology on 09/11 -EKG on admission shows atrial fibrillation, On metoprolol; continue. Patient is not on anticoagulation due to upper extremity hematoma during recent admission. CKD stage III - Chronic, stable, trend am lab Dementia -Patient is AAO x 3; occasionally requires reorientation. DVT ppx: Heparin CODE: DNR/DNI Patient is being discharged to [facility] with following instruction at the point of discharge: Follow-up with your primary care physician within a week time and likely you will need labs CBC/CMP/magnesium/phosphorus. You were evaluated for acute on chronic heart failure. You will be discharged on Lasix 40 mg daily. Limit fluid intake to 1500 mL/day. Maintain heart healthy diet and low-sodium diet [less than 2 g salt per day]. Follow-up with your cardiology in 2 to 4 weeks time upon discharge. You can use compression stockings during the day to assist with fluid mobiliz ation from your lower extremities. Take your medications as prescribed. Please make sure that you are able to get your medications today by calling your pharmacy before you leave the hospital so that your treatment continuity is not broken. Please note the above document was generated using voice recognition software. It may contain grammatical, syntax or spelling errors. Any formal questions or concerns about the content, text or information contained within the body of this dictation should be directly addressed to the provider for clarification Home Health Attestation I certify that this patient is under my care and that I, or a physicians early childhood assistant working with me, had a face to-face encounter that meets the [facility] [id number] encounter requirements with this patient. The encounter with the patient was in whole, or in part, for the following medical condition, which is the primary reason for home health care (list medical condition): CHF I certify that, based on my findings, the following services are medically necessary home health services: My clinical findings support the need for the above services because: OT Assess ADL Status and Restore Function w ADLs PT Assessment for Endurance / Balance / Strength PT Eval for Safety and Mobility PT Eval for Safety, Gait Training, Assistive Devices PT Gait and Balance Training, Strengthening and Safety Further, I certify that my clinical findings support that this patient is homebound (i.e. absences from home require considerable and taxing effort and are for medical reasons or mandaen services or infrequently or of short duration when for other reasons) because: Supportive Aid - Walker Transportation Assistance/Unable to Leave Home Unassisted Certification for Home Health Services: Based on the above findings, I certify that this patient is confined to the home and needs intermittent custodial care, physical therapy and/or speech therapy or continues to need occupational therapy. The patient is under my care, and I have initiated the establishment of the plan of care. This patient will be followed by a physician who will periodically review the plan of care. Total Time Total Time Spent Total Time Spent (In Minutes): 45 Discharge Plan Discharge Items Patient Disposition: Personal Mcfp Reason For Visit: CHF EXACERBATION Discharge Diagnosis: Acute on chronic diastolic heart failure Activity: Resume your previous activity Non-emergency contact: Primary Care Provider Call non-emergency contact if: you have any medication questions, your symptoms worsen and your temperature is above 101 Follow-up/Referrals: [facility] [Primary Care Provider] - Diet: Heart Healthy and Low Sodium (2gm) Fluids: 1500ml (6 cups) Addtl Attending Provider Instructions: Follow-up with your primary care physician within a week time and likely you will need labs CBC/CMP/magnesium/phosphorus. You were evaluated for acute on chronic heart failure. You will be discharged on Lasix 40 mg daily. Limit fluid intake to 1500 mL/day. Maintain heart healthy diet and low-sodium diet [less than 2 g salt per day]. Follow-up with your cardiology in 2 to 4 weeks time upon discharge. You can use compression stockings during the day to assist with fluid mobilization from your lower extremities. Take your medications as prescribed. Please make sure that you are able to get your medications today by calling your pharmacy before you leave the hospital so that your treatment continuity is not broken. Addtl Truck Driving Provider Instructions: Call 911 and go to the Emergency Room if: * You have tightness or pain in your chest that does not go away with rest or Nitroglycerin * You are very short of breath even with rest Call your doctor if any of the following symptoms or problems start or get worse: * Shortness of breath or difficulty breathing * Wake up at night short of breath * Chest pain * Cough * Swelling of your hands, fee, or legs * More fatigued or tired with your normal activity * Palpitations - sudden fast heart beats WEIGHT * Weigh yourself every morning after using the bathroom. * Use the same scale. * Wear the same amount of clothing. * Write your weight down on your chart. * Call your doctor if you gain more than 2-3 pounds in 1-2 days. MEDICATIONS * Use this discharge instruction sheet for instructions. * Take your medications at the time your doctor ordered. * Do not skip a dose of your medicines. * If you miss a dose of medicine, take as soon as possible, but DO NOT DOUBLE A DOSE. * Read your medicine information when you get home. * Know all of the side effects of your medicine. * Call your doctor's office if you have any side effects. * Be sure all of your doctors know what medicine and herbs you take (including cold, flu, and herbal medicine). * Pain Medicine: If you do not get relief from your pain, please call your doctor for help. Take the following with you to your follow-up doctor appointments: * Weight Chart * Medication List * List of questions Do not drink excessive alcohol, beer or wine. Pending Studies at Discharge: No Stand-Alone Forms: [employer], Smoking Cessation Skilled Items Patient informed of condition?: Yes DNR: Yes Discharge Level of Care: Other Communicable Disease: No Discharge Prognosis: Stable Lines: None Urinary Catheter: No Medications and DC Order Prescriptions: New metoprolol succinate 25 mg Tablet Extended Release 24 Hr 75 mg PO QAM Qty: 90 0RF furosemide 40 mg Tablet 40 mg PO QAM Qty: 30 0RF Continued aspirin [Lyly Low Dose Aspirin] 81 mg Tablet,Delayed Release (Dr/Ec) 81 mg PO QAM acetaminophen [Acetaminophen Extra Strength] 500 mg Tablet 500 mg PO Q4 MDD 3 GRAMS/24 HOURS PRN (Reason: Pain) ferrous sulfate 325 mg (65 mg iron) Tablet 325 mg PO TID sennosides 8.6 mg Tablet 8.6 mg PO QAM fexofenadine 180 mg Tablet 180 mg PO DAILY alum-mag hydroxide-simeth [Antacid-Simethicone] 400-400-40 mg/5 mL Suspension 10 - 20 ml PO QID PRN (Reason: HEARTBURN/INDIGESTION/GAS) Rosemarie Protect(dimethicone-zinc) Cream 1 applic TOPICAL DAILY PRN (Reason: Skin Irritation) nitroglycerin [Nitrostat] 0.4 mg Tablet, Sublingual 0.4 mg sublingual UD PRN (Reason: chest pain) Qty: 25 2RF Rx Instructions: dissolve 1 tablet under tongue as needed , may repeat x 3 doses for chest pain isosorbide mononitrate 30 mg Tablet Extended Release 24 Hr 30 mg PO QAM Qty: 30 0RF omeprazole 20 mg Capsule,Delayed Release(Dr/Ec) 20 mg PO QAM Systane (PF) 0.4-0.3 % Dropperette 1 drp OPB BID amoxicillin 500 mg capsule 2,000 mg PO DAILY PRN (Reason: 1 hour prior to dental work) docosanol [Abreva] 10 % Cream 1 applic TOPICAL UD PRN (Reason: Cold Sores) Rx Instructions: may keep at bedside trolamine salicylate [Aspercreme] 10 % Cream 1 applic TOPICAL QID PRN (Reason: Pain) Rx Instructions: may keep at bedside for independent use Metamucil [place] Powder 1 tbsp PO DAILY Rx Instructions: mix into 6-8 ounces of fluid and drink cyanocobalamin (vitamin B-12) 500 mcg Tablet 1,000 mcg PO QAM Qty: 60 1RF diphenhydramine HCl [Benadryl] 25 mg Capsule 25 mg PO HS PRN (Reason: allergies) cholecalciferol (vitamin D3) [Vitamin D3] 50 mcg (2,000 unit) Tablet 50 mcg PO QAM docusate sodium 100 mg Capsule 100 mg PO BID PRN (Reason: Constipation) Qty: 30 0RF atorvastatin 40 mg tablet 40 mg PO PM Discontinued furosemide 20 mg tablet 20 mg PO . M,W,F Rx Instructions: qam metoprolol succinate 50 mg tablet extended release 24 hr 50 mg PO QAM nitroglycerin 0.4 mg tablet, sublingual 0.4 mg sublingual DAILY PRN (Reason: Chest Pain) Discharge Orders: Discharge Order- CHF (Routine); Ordered 10/15/23 Ordered By: Zack Garcia Admission Data Admit Date/Time: 10/08/23 10:55 Attending Provider: Zack Garcia Admit Provider: Saba Wakefield Primary Care Provider: Jose Alva,[facility], [facility] Other Providers: Saba Wakefield; Garret Yoon Gregory; [facility]
== END 2023-10-15 17:10 | disposition home or self-care (01) | DRG 291 ==
LOC: ED 08:34 → EDINP 10:55 → SUATTDRO 10:55 → 4W 11:04

== ENCOUNTER 2023-11-24 09:37 | Inpatient (IN) ==
--- NOTE | 2023-11-24 09:54 | Emergency Department Note ---
Impression & Plan Hypoxia, CHF (congestive heart failure), SOB (shortness of breath), MORGAN (dyspnea on exertion), Hypomagnesemia ED Provider Note NAME: DIYA ROSE AGE: 88 SEX: F : 1935 ARRIVES VIA: Ambulance INFORMANT: [Patient][ems, nursing] ED PROVIDER(S): [Don Mesa MD] CHIEF COMPLAINT: Short of breath HISTORY OF PRESENT ILLNESS: The patient is an 88-year-old female who has a history of CHF. She resides at [facility]. The patient was short of breath this morning walking to breakfast. No chest pain. She has a history of CHF and there was concern that she was fluid overloaded. Staff did notice an increase in her weight lately as well as some pedal edema. Patient has not had fever, no sore throat or stuffy nose. No vomiting or diarrhea. PMHx/PSHx/Social Hx: See Below PHYSICAL EXAM: GENERAL: Patient is in no acute distress. HEENT: No acute trauma, normocephalic atraumatic, mucous membranes moist, no nasal congestion. NECK: No stridor, no adenopathy, no meningismus, trachea is midline. LUNGS: Crackles at both bases, breath sounds diminished bilaterally, no obvious respiratory distress. HEART: Without murmurs gallops or rubs, normal rate, irregular rhythm. Heart tones are distant. ABDOMEN: Soft, nontender, no peritonitis. EXTREMITIES: No cyanosis, full range of motion of all the joints without pain or difficulty. Moderate bilateral pedal edema. NEUROLOGIC: Oriented x 3, no acute motor or sensory deficits, no focal weakness. SKIN: No jaundice, no diaphoresis. DIFFERENTIAL DIAGNOSIS: CHF, fluid overload, anemia, electrolyte imbalance, viral illness, pneumonia, cardiac ischemia, among others. EMERGENCY DEPARTMENT PROCEDURES: MEDICAL DECISION MAKING: There is no leukocytosis. The patient has a very mild anemia. There is a normal platelet count. No coagulopathy. Creatinine is slightly elevated but not in need of any emergent correction. Magnesium was slightly low at 1.6. No concerning liver enzyme elevation. BNP was elevated consistent with CHF and fluid overload. ECG showed atrial fibrillation, no obvious ischemia. Cardiac enzyme testing x 1 was slightly elevated. This troponin elevation could be secondary to cardiac injury or just mismatch from her dyspnea. Chest film does show some findings of COPD as well as some fluid overload. Urinalysis did not show findings of infection. COVID, influenza and RSV test were negative. Patient presents with hypoxia, dyspnea on exertion. On exam, she appeared to be fluid overloaded. The patient was given IV Lasix, 40 mg. She received IV magnesium for the lower magnesium value. She was given a DuoNeb. Given the dyspnea, given her age, given the hypoxia findings, I do think the patient requires a hospital stay. I suspect the patient's dyspnea is secondary to fluid overload as well as some underlying chronic lung injury. I spoke with the patient and case management, the on-call hospitalist was consulted. Prior/Outside records/notes reviewed: Today's EMS notes describing her presentation and transport to this hospital. ECG per my interpretation: Indication was shortness of breath. The ECG shows what appears to be atrial fibrillation with baseline artifact. The rate is 76. There is no acute ST elevation, no PVCs. There is some poor R wave progression across the anterior leads. QTc is 447. Continuous Cardiac Monitoring per my interpretation: An order was placed for continuous cardiac monitoring. The monitor shows a rate of 82 with atrial fibrillation. Imaging/x-ray results per my interpretation: Chest x-ray shows findings of COPD with some pleural effusions and fluid overload. I see no pneumonia. Chronic Medical/Social conditions affecting care: Advanced age. Care/Management discussed with: Case management, the on-call hospitalist. Level of care consideration(s): After review of the information above and other included data: --I believe the patient requires escalation of care to admission Critical Care Note: I have personally spent 38 minutes of critical care time in the direct management of this patient. This includes bedside care, interpretation of diagnostic studies, and testing, discussion with consultants, patient, and family members, and other required patient management activities. This 38 minutes is in excess of all separately billable procedures. DISPOSITION: Admission Past Med/Surg History Medical History Acute on chronic diastolic HF (heart failure) CHF exacerbation Chronic atrial fibrillation Pleural effusion Encephalopathy Hypoxia Dementia Chronic diastolic heart failure Dyslipidemia NSTEMI (non-ST elevated myocardial infarction) 09/2019 Chronic kidney disease, stage 3 (moderate) Gout Osteoarthritis Diverticular disease Cervical cancer 1997--sx History of colon polyps Aortic valve stenosis Schatzki's ring History of esophageal dilatation History of falling Polymyalgia rheumatica Hypertension Gout Status post closed fracture of right femur Surgical History (Updated 11/24/23 @ 15:31 by Nelly Burden PA-C) S/P aortic valve replacement with bioprosthetic valve S/P AVR History of vein stripping x2 H/O total hysterectomy History of colonoscopy H/O cataract extraction History of cardiac cath 08/20/2007 History of breast biopsy History of cholecystectomy History of esophagogastroduodenoscopy (EGD) [place] [facility] [place] History Mother Rectal cancer Social History Smoking Status: Never smoker Tobacco Type: Cigarettes Second Hand Exposure: Yes; Do You Dip or Chew Tobacco: No; Hx Alcohol Use: No Hx Substance Use: No Preferred Language: Upper Sorbian Communication Ability: Effective Binder Cutter Required: No Beliefs That Will Affect Care: [facility] Current Living Situation: [facility] Current Living Situation Comment: [facility] current occupational status: retired Feels Safe at Home: Yes Assistive Devices: Walker Allergies Allergies Allergy/AdvReac Type Severity Reaction Status Date / Time allopurinol Allergy Unknown [place] Verified 08/18/23 11:23 [place] [facility] L[facility] Cephalosporins Allergy Unknown [place] Verified 08/18/23 11:23 [place] [facility] gramicidin D [From Neocidin] Allergy Unknown Redness of Verified 08/18/23 11:23 Skin neomycin [From Neocidin] Allergy Unknown Redness of Verified 08/18/23 11:23 Skin polymyxin B [From Neocidin] Allergy Unknown Redness of Verified 08/18/23 11:23 Skin chocolate AdvReac Unknown Verified 08/18/23 11:28 Home Meds Home Medications Medication Instructions Recorded Confirmed aspirin 81 mg tablet,delayed 81 mg PO QAM 06/11/18 11/24/23 release (Lyly Low Dose Aspirin) acetaminophen 500 mg tablet 500 mg PO Q4H PRN Pain Scale 4-6 07/29/18 11/24/23 (Acetaminophen Extra Strength) ferrous sulfate 325 mg (65 mg 325 mg PO TID 07/29/18 11/24/23 iron) tablet aluminum-mag hydroxide-simethicone 10 - 20 ml PO QID PRN Heartburn 09/27/19 11/24/23 400 mg-400 mg-40 mg/5 mL oral susp (Antacid-Simethicone) dimethicone-zinc oxide topical 1 applic topical DAILY PRN Skin 09/27/19 11/24/23 cream (Rosemarie Protect Protection (dimethicone-zinc oxide) topical cream) fexofenadine 180 mg tablet 180 mg PO DAILY 09/27/19 11/24/23 sennosides 8.6 mg tablet 8.6 mg PO QAM Constipation 09/27/19 11/24/23 docosanol 10 % topical cream 1 applic topical UD PRN Cold Sores 08/04/22 11/24/23 (Abreva) omeprazole 20 mg capsule,delayed 20 mg PO DAILY 08/04/22 11/24/23 release peg 400-propylene glycol (PF) 0.4 1 drp OPB BID Dry Eyes 08/04/22 11/24/23 %-0.3 % eye drops in a dropperette (Systane (PF)) psyllium seed (sugar) oral powder 1 tbsp PO DAILY 08/04/22 11/24/23 (Metamucil [place] oral powder) cholecalciferol (vitamin D3) 50 50 mcg PO DAILY 08/18/23 11/24/23 mcg (2,000 unit) tablet (Vitamin D3) diphenhydramine HCl 25 mg capsule 25 mg PO HS PRN Allergies 08/18/23 11/24/23 (Benadryl) atorvastatin 40 mg tablet 40 mg PO DAILY 10/08/23 11/24/23 Aspercreme 10 % topical QID PRN Pain 11/24/23 11/24/23 cyanocobalamin (vitamin B-12) 500 1,000 mcg PO DAILY 11/24/23 11/24/23 mcg tablet furosemide 40 mg tablet 40 mg PO DAILY 11/24/23 11/24/23 loperamide 2 mg tablet 2 mg PO DAILY PRN Diarrhea 11/24/23 11/24/23 metoprolol succinate 50 mg 75 mg PO DAILY 11/24/23 11/24/23 tablet,extended release 24 hr nitroglycerin 0.4 mg sublingual 0.4 mg sublingual UD PRN Chest Pain 11/24/23 11/24/23 tablet (Nitrostat) phenyleph-shark liver 1 applic [place] BID PRN Hemorrhoids 11/24/23 11/24/23 [id number] rectal cream Previous Rx's Medication Instructions Recorded isosorbide mononitrate 30 mg 30 mg PO QAM #30 tabs 10/27/19 tablet,extended release 24 hr docusate sodium 100 mg capsule 100 mg PO BID PRN Constipation #30 08/31/23 caps Results & Data (ED) Vital Signs Vital Signs - 24 hr 11/24/23 09:40 11/24/23 09:40 11/24/23 10:04 Temperature 36.7 C Temperature Source Oral Pulse Rate 80 82 Pulse Rate [Left Apical] Pulse Rate from SpO2 Sensor Respiratory Rate 18 Respiratory Effort / Characteristics Non-Labored Spontaneous Respiratory Depth Normal Blood Pressure 122/72 Blood Pressure [Left Arm] Blood Pressure Mean 88 Blood Pressure Mean [Left Arm] Blood Pressure Position Sitting Pulse Oximetry 99 89 L Oxygen Delivery Method Nasal Cannula Oxygen Flow Rate 2 0 Sepsis Recent Fever Within 48 Hours No Sepsis New/Unexplained Change in Mental Status N/A Sepsis Action Taken by Nursing No Action Required Oxygen Flow Rate - Titration 2 Pulse Oximetry Post Tiitration 99 11/24/23 10:30 11/24/23 11:00 11/24/23 11:00 Temperature Temperature Source Pulse Rate 86 Pulse Rate [Left Apical] 84 Pulse Rate from SpO2 Sensor 86 Respiratory Rate 16 24 Respiratory Effort / Characteristics Non-Labored Spontaneous Respiratory Depth Normal Blood Pressure 123/80 Blood Pressure [Left Arm] 124/72 Blood Pressure Mean 92 Blood Pressure Mean [Left Arm] 89 Blood Pressure Position Pulse Oximetry 98 95 Oxygen Delivery Method Nasal Cannula Oxygen Flow Rate 2 Sepsis Recent Fever Within 48 Hours Sepsis New/Unexplained Change in Mental Status Sepsis Action Taken by Nursing Oxygen Flow Rate - Titration Pulse Oximetry Post Tiitration 11/24/23 11:30 Temperature Temperature Source Pulse Rate 89 Pulse Rate [Left Apical] Pulse Rate from SpO2 Sensor 85 Respiratory Rate 22 Respiratory Effort / Characteristics Respiratory Depth Blood Pressure Blood Pressure [Left Arm] Blood Pressure Mean Blood Pressure Mean [Left Arm] Blood Pressure Position Pulse Oximetry 98 Oxygen Delivery Method Oxygen Flow Rate Sepsis Recent Fever Within 48 Hours Sepsis New/Unexplained Change in Mental Status Sepsis Action Taken by Nursing Oxygen Flow Rate - Titration Pulse Oximetry Post Tiitration Home Medications Current Medication List: was personally reviewed by me Laboratory Data Attestation: I reviewed the patient's lab results. 11/24/23 09:55 11/24/23 09:55 Lab Results 11/24/23 11/24/23 Range/Units 09:55 10:00 WBC 6.52 (4.8-10.8) K/ul RBC 3.38 L (4.20-5.40) M/uL Hgb 11.1 L (12.0-16.0) g/dl Hct 35.0 L (37.0-47.0) % MCV 103.6 H (80.0-100.0) fL MCH 32.8 (25.0-34.0) pg MCHC 31.7 L (32.0-36.0) g/dL RDW Std Deviation 52.0 H (36.4-46.3) fL RDW Coeff of Jimmie 13.6 (11.5-14.5) % Plt Count 176 (130-400) K/uL MPV 10.8 (9.4-12.4) fL Immature Gran % (Auto) 0.2 % Neut % (Auto) 77.0 % Lymph % (Auto) 11.0 % Harris % (Auto) 6.7 % Eos % (Auto) 4.3 % Baso % (Auto) 0.8 % Neut # (Auto) 5.02 (1.40-6.50) K/uL Lymph # (Auto) 0.72 L (1.20-3.40) K/uL Harris # (Auto) 0.44 (0.11-0.59) K/uL Eos # (Auto) 0.28 (0.00-0.50) K/uL Baso # (Auto) 0.05 (0.00-0.20) K/uL Immature Gran # (Auto) 0.01 (0.01-0.20) K/uL PT 11.7 (9.0-12.0) Seconds INR 1.1 (0.9-1.1) APTT 23 (21-31) Seconds PTT Ratio 0.9 Sodium 141 (136-145) mmol/L Potassium 3.8 (3.5-5.1) mmol/L Chloride 105 (98-107) mmol/L Carbon Dioxide 33 H (21-32) mmol/L Anion Gap 3 (3-11) BUN 26 H (6-23) mg/dl Creatinine 1.21 H (0.6-1.2) mg/dl Est Cr Clr Drug Dosing 31.9 ml/min Est GFR ( Amer) 46.6 ml/min Est GFR (Non-Af Amer) 40.2 ml/min BUN/Creatinine Ratio 21.5 H (10-20) Glucose 152 H (70-99(Fasting)) mg/dl Calcium 9.3 (8.6-10.3) mg/dl Magnesium 1.6 L (1.7-2.4) mg/dl Total Bilirubin 1.4 H (0.2-1.0) mg/dl AST 19 (13-39) U/L ALT 22 (7-52) U/L Alkaline Phosphatase 66 (34-104) U/L Troponin I High Sens 40.9 H (0-14) pg/ml B-Natriuretic Peptide 631 H (0-100) pg/ml Total Protein 6.4 (6.0-8.3) gm/dl Albumin 3.7 (3.4-5.0) gm/dl Globulin 2.7 (2.5-4.0) gm/dl Albumin/Globulin Ratio 1.4 (0.9-2) SARS-CoV-2 (PCR) NEGATIVE (Negative) Influenza Type A (PCR) Negative (Neg) Influenza Type B (PCR) Negative (Neg) RSV (RT-PCR) Negative (Neg) Administered Medications Discontinued Medications Albuterol (Albut/Ipratrop 3mg/0.5mg Neb 3 Ml Vial) 3 ml NEB NOW STA; Protocol Stop: 11/24/23 10:16 Last Admin: 11/24/23 10:37 Dose: 3 ml Documented By: DEYVI Furosemide (Furosemide 40 Mg/4 Ml Vial) 40 mg IV ONE ONE Stop: 11/24/23 10:59 Last Admin: 11/24/23 11:31 Dose: 40 mg Documented By: MARTINA Magnesium Sulfate/Dextrose (Magnesium Sulfate / D5w) 1 gm in 100 mls @ 100 mls/hr IV NOW STA Stop: 11/24/23 13:26 Last Infusion: 11/24/23 14:01 Dose: Infused Documented By: Admin: 11/24/23 13:01 Dose: 100 mls/hr Documented By: MARTINA Potassium Chloride (Potassium Chloride Crtab 20 Meq Tabcr) 20 meq PO NOW STA Stop: 11/24/23 12:26 Last Admin: 11/24/23 13:00 Dose: 20 meq Documented By: MARTINA Imaging Data Radiologist's Impression: Chest X-Ray 11/24/23 09:51 SINGLE VIEW CHEST CLINICAL HISTORY: Dyspnea FINDINGS: 2 AP, portable, upright chest radiographs are compared to chest x-ray and chest CT dated 10/10/2023. The examination is degraded by portable technique and patient rotation. The patient is status post midline sternotomy and cardiac valve surgery. The heart is enlarged noting atherosclerotic calcification of the thoracic aorta. There is pulmonary vascular congestion. Emphysema and chronic interstitial thickening is similar to previous. Foci of parenchymal scarring are seen throughout both lungs. There are small pleural effusions with dependent consolidation. No pneumothorax is seen. The skeletal structures are osteopenic. The bony thorax is grossly intact. Arthritic change is seen in the shoulders. IMPRESSION: 1. Cardiomegaly and emphysema with mild pulmonary vascular congestion. 2. Small pleural effusions with dependent consolidation. 3. The tiny left apical pneumothorax seen previously is no longer visualized. ACT 112: Negative or not required by law. Electronically signed by: Don Fallon M.D. 11/24/2023 10:08 AM Discharge Plan Visit Data Chief Complaint: Shortness of Breath/Dyspnea Stated Complaint: RESPIRATORY PROBLEMS ED Provider: Don Mesa Discharge Problem: Hypoxia, CHF (congestive heart failure), SOB (shortness of breath), MORGAN (dyspnea on exertion), Hypomagnesemia Patient Disposition: Admitted As Inpatient Condition: Fair Discharge Instructions Interventions: ED Discharge Assessment Last Done: 11/24/23 13:52 Discharge Problem: CHF (congestive heart failure) Qualifiers: Heart failure type: unspecified Heart failure chronicity: acute on chronic Q ualified Code(s): I50.9 - Heart failure, unspecified
--- NOTE | 2023-11-24 10:10 | XRay Report ---
SINGLE VIEW CHEST CLINICAL HISTORY: Dyspnea FINDINGS: 2 AP, portable, upright chest radiographs are compared to chest x-ray and chest CT dated . The examination is degraded by portable technique and patient rotation. The patient is statu s post midline sternotomy and cardiac valve surgery. The heart is enlarged noting atherosclerotic sergio cification of the thoracic aorta. There is pulmonary vascular congestion. Emphysema and chronic inter stitial thickening is similar to previous. Foci of parenchymal scarring are seen throughout both lung s. There are small pleural effusions with dependent consolidation. No pneumothorax is seen. The skele saran structures are osteopenic. The bony thorax is grossly intact. Arthritic change is seen in the daniel ulders. IMPRESSION: 1. Cardiomegaly and emphysema with mild pulmonary vascular congestion. 2. Small pleural effusions with dependent consolidation. 3. The tiny left apical pneumothorax seen previously is no longer visualized. ACT 112: Negative or not required by law. Electronically signed by: Don Fallon M.D. 11/24/2023 10:08 AM
[2023-11-24 10:33] LABS: Basophils # (auto) 0.05 K/uL (0.00-0.20); Basophils % (auto) 0.8 %; Eosinophils # (auto) 0.28 K/uL (0.00-0.50); Eosinophils % (auto) 4.3 %; Hemoglobin 11.1 g/dl (12.0-16.0); Immature Granulocytes # (auto) 0.01 K/uL (0.01-0.20); Immature Granulocytes % (auto) 0.2 %; Lymphocytes # (auto) 0.72 K/uL (1.20-3.40); Mean Corpuscular Hemoglobin 32.8 pg (25.0-34.0); Mean Corpuscular Hgb Conc 31.7 g/dL (32.0-36.0); Mean Corpuscular Volume 103.6 fL (80.0-100.0); Mean Platelet Volume 10.8 fL (9.4-12.4); Monocytes # (auto) 0.44 K/uL (0.11-0.59); Monocytes % (auto) 6.7 %; Neutrophils # (auto) 5.02 K/uL (1.40-6.50); Platelet Count 176 K/uL (130-400); RDW Coefficient of Variation 13.6 % (11.5-14.5); Red Blood Count 3.38 M/uL (4.20-5.40); White Blood Count 6.52 K/ul (4.8-10.8)
[2023-11-24 10:34] LABS: INR 1.1 (0.9-1.1); Partial Thromboplastin Ratio 0.9; Partial Thromboplastin Time 23 Seconds (21-31); Prothrombin Time 11.7 Seconds (9.0-12.0)
[2023-11-24] MEDS: ALBUT/IPRATROP 3MG/0.5MG NEB 3 ML VIAL NEB STA (10:37)
[2023-11-24 10:48] LABS: Albumin Globulin Ratio 1.4 (0.9-2); Albumin Level 3.7 gm/dl (3.4-5.0); BUN Creatinine Ratio 21.5 (10-20); Bilirubin,Total 1.4 mg/dl (0.2-1.0); Calcium 9.3 mg/dl (8.6-10.3); Creatinine Clr Calc Pharmacy 31.9 ml/min; Est GFR (African American) 46.6 ml/min; Est GFR (Non-African American) 40.2 ml/min; Globulin 2.7 gm/dl (2.5-4.0); Magnesium 1.6 mg/dl (1.7-2.4); Potassium 3.8 mmol/L (3.5-5.1); Total Protein 6.4 gm/dl (6.0-8.3)
[2023-11-24 10:52] LABS: Troponin I High Sensitivity 40.9 pg/ml (0-14)
[2023-11-24 10:59] LABS: Influenza A virus by PCR Negative (Neg); Influenza B virus by PCR Negative (Neg); RSV by PCR Negative (Neg); SARS CoV2 RNA(COVID-19) Ceph NEGATIVE (Negative)
[2023-11-24] MEDS: FUROSEMIDE 40 MG/4 ML VIAL IV ONE (11:31)
--- NOTE | 2023-11-24 12:34 | History & Physical Report ---
Date of Service November 24, 2023 Assessment & Plan (1) CHF exacerbation: (2) Acute dyspnea: (3) Chronic diastolic heart failure: (4) S/P aortic valve replacement with bioprosthetic valve: (5) Elevated troponin: Plan: Batsheva Dumas is an 88y/o F with PMHx of dementia, dyslipidemia, NSTEMI [09/2019], CKD stage III, gout, osteoarthritis, diverticular disease, chronic diastolic heart failure, persistent atrial fibrillation, aortic valve stenosis s/p aortic valve replacement [2007], polymyalgia rheumatica, HTN, CAD, glaucoma and chronic anemia who presented to the ED via EMS for evaluation of SOB and was found to have CHF exacerbation. -Patient did undergo left-sided thoracentesis for tx of pleural effusion during last hospital admission. -Most recent echo performed on 08/04/22; showed severe concentric left ventricular hypertrophy, EF =>70%, bioprosthetic aortic valve with normal prosthetic gradients/no significant regurgitation. -PureWick catheter in place for strict I/Os -Sodium restriction diet, daily weights -Oxygen sat of 89% upon arrival to ED, improved to 98% with additional of supplement oxygen. Continue 2L oxygen via nasal cannula. -Chest x-ray showed cardiomegaly and emphysema with mild pulmonary vascular congestion, small pleural effusions with dependent consolidation. -Monitor for any signs of impending respiratory distress, wean supplemental oxygen as able. -Most recent repeat troponin of 38.2, downtrending from last troponin of 40.9. BNP is elevated at 631. -Cardiology consult (6) CAD (coronary artery disease): Plan: -No active chest pain, troponin trending flat at 38.2. -Low suspicion for ACS, likely increased demand. -Continue isosorbide mononitrate ER -Monitor for any signs of acute onset chest pain. (7) Persistent atrial fibrillation: Plan: -Anticoagulation was previously deferred d/t right upper extremity hematoma, which occurred during her previous admission in July of this year. -Recently seen by cardiology on 11/02/23 -EKG showing atrial fibrillation, asymptomatic -Continue metoprolol succinate, aspirin (8) Dementia: Plan: -Patient is A&O x 3 during my examination, recalls where she is and how she got here. -Continue to monitor for any signs of worsening delirium throughout hospital stay. (9) Hypomagnesemia: Plan: -Replete magnesium -Repeat magnesium level in AM (10) Hypertension: Plan: -Chronic, stable -Continue metoprolol succinate -Continue to monitor BP closely throughout hospital stay (11) Anemia: Plan: -Chronic, stable -Continue to monitor CBC while hospitalized -Continue ferrous sulfate (12) CKD (chronic kidney disease), stage III: Plan: -Chronic, creatinine at baseline -Continue to monitor renal function while hospitalized (13) Dyslipidemia: Plan: -Continue atorvastatin (14) Pressure ulcer, stage I, non-blanching erythema: Plan: -As noted in the physical examination, non-blanching sacral erythema is present. -Continue to monitor sacral region for any changes of the skin formation. -Order placed for pressure ulcer precautions History of Present Illness Chief Complaint: Shortness of Breath [SOB] Primary Care Provider: [facility] Piter is an 88y/o F with PMHx of dementia, dyslipidemia, NSTEMI [09/2019], CKD stage III, gout, osteoarthritis, diverticular disease, chronic diastolic heart failure, persistent atrial fibrillation, aortic valve stenosis s/p aortic valve replacement [2007], polymyalgia rheumatica, HTN, CAD, glaucoma and chronic anemia who presented to the ED via EMS for evaluation of SOB. Patient currently resides at [facility]. History obtained from the patient and her sister, and associated ED/PCP/previous admiss ion/specialist records. Patient was previously hospitalized in September, 10/08/23- 10/15/23, and was diagnosed with acute on chronic diastolic HF. At that time, she was discharged on furosemide 40mg PO QAM and metoprolol succinate ER 24hr 75mg PO QAM [dosage increase to both of the medications]. Patient did undergo left- sided thoracentesis for treatment of a pleural effusion secondary to heart failure during this hospital stay, and was found to have atrial fibrillation on admission. Patient was not discharged on anticoagulation therapy, as she had an upper extremity hematoma at that time. She did follow-up with cardiology on 11/02/23. Of note, patient did undergo cardiac catheterization on 10/24/2019 with findings of severe two-vessel disease including 95+% mid-LAD stenosis and subtotal occlusion of her RCA with [id number] collaterals. Successful PCI of proximal to mid LAD with single drug-eluding stent was done at that time. Cardiology recommended continuing aspirin 81mg daily and atorvastatin 40mg daily, and no other changes were made to her medications at that appointment. Most recent echocardiogram was performed on 08/18/23, which showed the following: atrial fibrillation, severe concentric left ventricular hypertrophy, EF >70%, mild to moderate mitral regurgitation, moderate tricuspid regurgitation, bioprosthetic aortic valve with no significant regurgitation and a mildly elevated pulmonary systolic pressure estimated to be 48mmHg. Patient was seen this afternoon at bedside, and was accompanied in the room by her sister. Suzette godoy reports that she has been experiencing SOB with exertion over the past few weeks, and that it has progressively gotten worse. She denies any incidences of chest pain, but mentions that her weight has gradually been increasing over the past few weeks as well. She notes that she weighed approximately 133lbs the last time a weight check was conducted at [facility]. Patient denies any coughing, fevers or congestion. She does ambulate with a walker on a daily basis. Patient also denies any lightheadedness/dizziness with exertion, nor any recent falls/episodes of lost consciousness. Patient's sister did mention that her legs have been looking more "swollen" lately, as she visits her every so often at [facility]. Patient does note that she wears Depends on a daily basis, but denies any urinary issues such as dysuria or hematuria. Patient also denies any GI issues, but she does take medication to alleviate symptoms of chronic constipation. PureWick external catheter is in place, noted 400cc of urine output when seen at bedside. Allergies Allergy/AdvReac Type Severity Reaction Status Date / Time allopurinol Allergy Unknown ON [place] Verified 08/18/23 11:23 [facility] Cephalosporins Allergy Unknown ON [place] Verified 08/18/23 11:23 [facility] gramicidin D [From Neocidin] Allergy Unknown Redness of Verified 08/18/23 11:23 Skin neomycin [From Neocidin] Allergy Unknown Redness of Verified 08/18/23 11:23 Skin polymyxin B [From Neocidin] Allergy Unknown Redness of Verified 08/18/23 11:23 Skin chocolate AdvReac Unknown Verified 08/18/23 11:28 Home Medications Medication Instructions Recorded Confirmed Type aspirin 81 mg tablet,delayed 81 mg PO QAM 06/11/18 11/24/23 History release (Lyly Low Dose Aspirin) acetaminophen 500 mg tablet 500 mg PO Q4H PRN Pain Scale 4-6 07/29/18 11/24/23 History (Acetaminophen Extra Strength) ferrous sulfate 325 mg (65 mg 325 mg PO TID 07/29/18 11/24/23 History iron) tablet aluminum-mag hydroxide-simethicone 10 - 20 ml PO QID PRN Heartburn 09/27/19 11/24/23 History 400 mg-400 mg-40 mg/5 mL oral susp (Antacid-Simethicone) dimethicone-zinc oxide topical 1 applic topical DAILY PRN Skin 09/27/19 11/24/23 History cream (Rosemarie Protect Protection (dimethicone-zinc oxide) topical cream) fexofenadine 180 mg tablet 180 mg PO DAILY 09/27/19 11/24/23 History sennosides 8.6 mg tablet 8.6 mg PO QAM Constipation 09/27/19 11/24/23 History isosorbide mononitrate 30 mg 30 mg PO QAM #30 tabs 10/27/19 11/24/23 Rx tablet,extended release 24 hr docosanol 10 % topical cream 1 applic topical UD PRN Cold Sores 08/04/22 11/24/23 History (Abreva) omeprazole 20 mg capsule,delayed 20 mg PO DAILY 08/04/22 11/24/23 History release peg 400-propylene glycol (PF) 0.4 1 drp OPB BID Dry Eyes 08/04/22 11/24/23 History %-0.3 % eye drops in a dropperette (Systane (PF)) psyllium seed (sugar) oral powder 1 tbsp PO DAILY 08/04/22 11/24/23 History (Metamucil [place] oral powder) cholecalciferol (vitamin D3) 50 50 mcg PO DAILY 08/18/23 11/24/23 History mcg (2,000 unit) tablet (Vitamin D3) diphenhydramine HCl 25 mg capsule 25 mg PO HS PRN Allergies 08/18/23 11/24/23 History (Benadryl) docusate sodium 100 mg capsule 100 mg PO BID PRN Constipation #30 08/31/23 11/24/23 Rx caps atorvastatin 40 mg tablet 40 mg PO DAILY 10/08/23 11/24/23 History Aspercreme 10 % topical QID PRN Pain 11/24/23 11/24/23 History cyanocobalamin (vitamin B-12) 500 1,000 mcg PO DAILY 11/24/23 11/24/23 History mcg tablet furosemide 40 mg tablet 40 mg PO DAILY 11/24/23 11/24/23 History loperamide 2 mg tablet 2 mg PO DAILY PRN Diarrhea 11/24/23 11/24/23 History metoprolol succinate 50 mg 75 mg PO DAILY 11/24/23 11/24/23 History tablet,extended release 24 hr nitroglycerin 0.4 mg sublingual 0.4 mg sublingual UD PRN Chest Pain 11/24/23 11/24/23 History tablet (Nitrostat) phenyleph-shark liver 1 applic [place] BID PRN Hemorrhoids 11/24/23 11/24/23 History hxk-wduyep-avc rectal cream Past Med/Surg History Medical History Acute on chronic diastolic HF (heart failure) CHF exacerbation Chronic atrial fibrillation Pleural effusion Encephalopathy Hypoxia Dementia Chronic diastolic heart failure Dyslipidemia NSTEMI (non-ST elevated myocardial infarction) 09/2019 Chronic kidney disease, stage 3 (moderate) Gout Osteoarthritis Diverticular disease Cervical cancer 1997--sx History of colon polyps Aortic valve stenosis Schatzki's ring History of esophageal dilatation History of falling Polymyalgia rheumatica Hypertension Gout Status post closed fracture of right femur Surgical History S/P aortic valve replacement with bioprosthetic valve S/P AVR History of vein stripping x2 H/O total hysterectomy History of colonoscopy H/O cataract extraction History of cardiac cath 08/20/2007 History of breast biopsy History of cholecystectomy History of esophagogastroduodenoscopy (EGD) H/O aortic valve replacement 09/2007 [place] [facility] [place] History Mother Rectal cancer Social History Smoking Status: Never smoker Tobacco Type: Cigarettes Second Hand Exposure: Yes; Do You Dip or Chew Tobacco: No; Hx Alcohol Use: No Hx Substance Use: No Preferred Language: Azeri Communication Ability: Effective [employer] P[employer] Grader Required: No Beliefs That Will Affect Care: None Current Living Situation: Personal Care Facility Current Living Situation Comment: [facility] current occupational status: retired Other Information That Helps Us Care for You: No Feels Safe at Home: Yes Safety Concerns: Feels Safe At This Time Assistive Devices: Denture - Upper, Denture - Lower, Glasses and Walker Review of Systems Review of Systems: At least ten systems reviewed and negative, except as noted in the HPI. Physical Exam Physical Exam: General Appearance: Reclined in bed, no conversational dyspnea present. Patient is in no acute distress. Currently on 2L oxygen nasal cannula. Head: Normocephalic, atraumatic. Eyes: Normal inspection, no acute trauma. PERRL, conjunctivae normal, anicteric sclerae. ENT: External ear and nose normal, oropharynx normal. Mucous membranes moist, no nasal congestion. Neck: Normal visual inspection, trachea midline, no thyromegaly. Respiratory: Lung sounds diminished bilaterally, crackles heard at both bases. No accessory muscle use. Cardiovascular: Regular rate, irregular rhythm. Normal peripheral pulses, mild bilateral pedal edema. Vessels: No JVD. Chest: Normal inspection of chest. Abdomen/GI: Normal bowel sounds, soft, nontender, no hepatosplenomegaly. Extremities/Musculoskeletal: No cyanosis or clubbing. Neurologic: PERRL, EOMI, accommodation nl, no face palsy, no dysarthria, CN's II-XI intact bilaterally and moves all extremities. Psychiatric: A+Ox3, euthymic affect. Skin: Non-blanching sacral erythema w/out ulcer formation noted. Results & Data Results & Data Vital Signs (Past 12 Hours) Vital Signs Temp Pulse Pulse Resp BP BP Pulse Ox 11/24/23 11:36 90 21 100 11/24/23 11:00 86 24 95 11/24/23 11:00 123/80 11/24/23 10:30 84 16 124/72 98 11/24/23 10:04 82 11/24/23 09:40 89 L 11/24/23 09:40 36.7 C 80 18 122/72 99 O2 Del Method O2 Flow Rate 11/24/23 11:36 Nasal Cannula 2 11/24/23 11:00 11/24/23 11:00 11/24/23 10:30 Nasal Cannula 2 11/24/23 10:04 11/24/23 09:40 0 11/24/23 09:40 Nasal Cannula 2 Laboratory Results Short CBC 11/24/23 Range/Units 09:55 WBC 6.52 (4.8-10.8) K/ul Hgb 11.1 L (12.0-16.0) g/dl Hct 35.0 L (37.0-47.0) % Plt Count 176 (130-400) K/uL BMP 11/24/23 09:55 Sodium 141 Potassium 3.8 Chloride 105 Carbon Dioxide 33 H BUN 26 H Creatinine 1.21 H Glucose 152 H Calcium 9.3 Liver Function 11/24/23 Range/Units 09:55 Total Bilirubin 1.4 H (0.2-1.0) mg/dl AST 19 (13-39) U/L ALT 22 (7-52) U/L Alkaline Phosphatase 66 (34-104) U/L Albumin 3.7 (3.4-5.0) gm/dl Urine 11/24/23 Range/Units 12:25 Urine Color Yellow Urine Appearance Clear (Clear) Urine pH 6.5 (4.5-7.5) Ur Specific Industry 1.009 (1.000-1.030) Urine Protein Negative (Negative) Urine Glucose (UA) Negative (Negative) Diagnostic Findings Chest X-Ray 11/24/23 09:51 SINGLE VIEW CHEST CLINICAL HISTORY: Dyspnea FINDINGS: 2 AP, portable, upright chest radiographs are compared to chest x-ray and chest CT dated 10/10/2023. The examination is degraded by portable technique and patient rotation. The patient is status post midline sternotomy and cardiac valve surgery. The heart is enlarged noting atherosclerotic calcification of the thoracic aorta. There is pulmonary vascular congestion. Emphysema and chronic interstitial thickening is similar to previous. Foci of parenchymal scarring are seen throughout both lungs. There are small pleural effusions with dependent consolidation. No pneumothorax is seen. The skeletal structures are osteopenic. The bony thorax is grossly intact. Arthritic change is seen in the shoulders. IMPRESSION: 1. Cardiomegaly and emphysema with mild pulmonary vascular congestion. 2. Small pleural effusions with dependent consolidation. 3. The tiny left apical pneumothorax seen previously is no longer visualized. ACT 112: Negative or not required by law. Electronically signed by: Don Fallon M.D. 11/24/2023 10:08 AM Medications Administered Discontinued Medications Albuterol (Albut/Ipratrop 3mg/0.5mg Neb 3 Ml Vial) 3 ml NEB NOW STA; Protocol Stop: 11/24/23 10:16 Last Admin: 11/24/23 10:37 Dose: 3 ml Documented By: DEYVI Furosemide (Furosemide 40 Mg/4 Ml Vial) 40 mg IV ONE ONE Stop: 11/24/23 10:59 Last Admin: 11/24/23 11:31 Dose: 40 mg Documented By: MARTINA Magnesium Sulfate/Dextrose (Magnesium Sulfate / D5w) 1 gm in 100 mls @ 100 mls/hr IV NOW STA Stop: 11/24/23 13:26 Last Admin: 11/24/23 13:01 Dose: 100 mls/hr Documented By: MARTINA Potassium Chloride (Potassium Chloride Crtab 20 Meq Tabcr) 20 meq PO NOW STA Stop: 11/24/23 12:26 Last Admin: 11/24/23 13:00 Dose: 20 meq Documented By: MARTINA ECG Additional Comments: EKG performed in the ED shows atrial fibrillation, rate of 76bpm and QT/QTc 398/447ms per my interpretation. Also of note, an anterior infarct is now present [which was not seen on her previous EKG performed on 10/09/23]. Code Status & VTE Plan Code Status DNR/DNI - NO Resuscitation VTE Prophylaxis Plan VTE Prophylaxis will be ordered: Yes Supervising Physician Co-Signing Physician Notes I have seen and examined the patient and have discussed the case with the provider above. I have reviewed the advanced practitioner's documentation, and I agree with, and take responsibility for that plan of care. 88 yo F who is a poor historian presents from [facility] with SOB Sister is present at the bedside but cannot assist with history as she is not with patient, nor does she receive regular updates from staff Daughter is patient's POA-lives in [place]. Physical exam reveals VSS, LAbs/Imaging/EKG/meds reviewed. chronic anemia noted with macrocytosis. Chem panel unremarkable, mg 1.6 with replacement given. Elevated trop without significant rise as noted above. Likely demand ischemia. CXR with pulm vascular congestion. Clinical picture is consistent with CHF exacerbation as noted above. Cont with Lasix, daily standing weights, and heart healthy diet. Cardiology consulted. Plan as noted above. DO [place] (1) CHF exacerbation Heart failure type: diastolic Qualified Code(s): I50.33 - Acute on chronic diastolic (congestive) heart failure (6) CAD (coronary artery disease) Associated angina: unspecified whether angina present Coronary Disease- Associated Artery/Lesion type: unspecified vessel or lesion type [place] vs. transplanted heart: [place] heart Qualified Code(s): I25.10 - Atherosclerotic heart disease of [place] coronary artery without angina pectoris (8) Dementia Dementia behavioral or psychological symptom: unspecified whether behavioral, psychotic, or mood disturbance or anxiety Dementia severity: unspecified severity Dementia type: unspecified type Qualified Code(s): F03.90 - Unspecified dementia, unspecified severity, without behavioral disturbance, psychotic disturbance, mood disturbance, and anxiety (10) Hypertension Hypertension type: unspecified Qualified Code(s): I10 - Essential (primary) hypertension (11) Anemia Anemia type: unspecified type Qualified Code(s): D64.9 - Anemia, unspecified (12) CKD (chronic kidney disease), stage III Chronic kidney disease stage 3 subtype: unspecified whether 3a or 3b Qualified Code(s): N18.30 - Chronic kidney disease, stage 3 unspecified (14) Pressure ulcer, stage I, non-blanching erythema Pressure injury location: sacral region Qualified Code(s): L89.151 - Pressure ulcer of sacral region, stage 1
[2023-11-24] MEDS: POTASSIUM CHLORIDE CRTAB 20 MEQ TABCR PO STA (13:00)
[2023-11-24] MEDS: MAGNESIUM SULFATE / D5W 1 GM/100 ML BAG IV STA (13:01)
[2023-11-24 13:03] LABS: Appearance Urine Clear (Clear); Bacteria Urine Automated None Seen (None Seen); Bilirubin Urine Negative (Negative); Blood Urine Trace (Negative); Cast Urine Automated 0-2 /lpf (0-2); Color Urine Yellow; Epithelial Cell Urine Auto 0-2 /hpf (0-2); Glucose Urine UA Negative (Negative); Ketones Urine Negative (Negative); Leukocyte Esterase Urine 1+ (Negative); Nitrite Urine Negative (Negative); Protein Urine Negative (Negative); RBC Urine Automated 0-2 /hpf (0-2); Specific Gravity Urine 1.009 (1.000-1.030); Urobilinogen Urine Negative (Negative); pH Urine 6.5 (4.5-7.5)
[2023-11-24] MEDS ORDERED: diphenhydrAMINE Capsule 25 MG CAP PO PRN (13:52)
[2023-11-24] MEDS ORDERED: ONDANSETRON INJ 2 MG/ML 2 ML VIAL IV PRN (13:52)
[2023-11-24] MEDS ORDERED: DOCUSATE SODIUM 100 MG CAP PO PRN (13:52)
[2023-11-24] MEDS ORDERED: POLYETHYLENE (MIRALAX) 17 GM PACK PO PRN (13:52)
[2023-11-24] MEDS ORDERED: ACETAMINOPHEN 325 MG TAB PO PRN (13:52)
[2023-11-24] MEDS: MAGNESIUM SULFATE / D5W 1 GM/100 ML BAG IV SCH (18:51)
[2023-11-24] MEDS: HEPARIN SOD 5,000 UNIT/0.5 ML VIAL SQ SCH (19:52)
[2023-11-24] MEDS: ARTIFICIAL TEARS OP SCH (19:53)
[2023-11-24] MEDS ORDERED: FERROUS SULFATE 325 MG TAB PO SCH (21:00)
[2023-11-25 07:33] LABS: Hematocrit (blood only) 36.7 % (37.0-47.0); Hemoglobin 11.3 g/dl (12.0-16.0); Mean Corpuscular Hemoglobin 31.8 pg (25.0-34.0); Mean Corpuscular Hgb Conc 30.8 g/dL (32.0-36.0); Mean Corpuscular Volume 103.4 fL (80.0-100.0); Mean Platelet Volume 10.7 fL (9.4-12.4); Platelet Count 160 K/uL (130-400); RDW Coefficient of Variation 13.3 % (11.5-14.5); RDW Standard Deviation 51.6 fL (36.4-46.3); Red Blood Count 3.55 M/uL (4.20-5.40); White Blood Count 6.38 K/ul (4.8-10.8)
--- NOTE | 2023-11-25 07:45 | Cardiology Consultation ---
Date of Consultation November 25, 2023 Assessment & Plan (1) Acute dyspnea: (2) CHF exacerbation: (3) Persistent atrial fibrillation: (4) Elevated troponin: (5) S/P aortic valve replacement with bioprosthetic valve: (6) CAD (coronary artery disease): Plan Assessment: 88 year old female with cognitive impairment s/t dementia presents with acute dyspnea. Unable to provide significant details. Resides in [facility] with CHF exacerbation one month ago requiring thoracentesis. Plan: 1. Acute dyspnea 2. CHF exacerbation -patient is resting comfortably OOB without complaint. -Imaging suggest small pleural effusions with dependent consolidation. -Continue Lasix 40mg IV daily -Continue oral potassium supplementation -Daily weights, strict I&O and close monitoring of labs. -Goal serum K > 4.0 and Serum mag > 2.0. -Reassess volume status in the AM -Continue Toprol xl as part of HF regimen. 3. Persistent Atrial fibrillation -Remains rate controlled on telemetry. -Continue Toprol xl 75mg PO QD -Not on oral AC therapy due to prior hematoma 4. Elevated Troponin -In the setting of an acute HF exacerbation -Chronically elevated troponin, mild elevation with flat trend -Recent echo demonstrated with normal LVEF and no wall motion abnormalities. 5.History of AVR: -Most recent echo 07/2023 which was performed in the setting of A-fib with RVR, patient was hyperdynamic at that time. Bioprosthetic aortic valve with normal gradients and no prosthetic regurgitation. 6. CAD: -Doing well from a cardiac standpoint. No new concerns. -BP well controlled. -No acute events on telemetry -Continue ASA 81mg, Imdur, Toprol xl, and Atorvastatin as GDMT Case has been discussed with Dr. Ng. Further recommendations regarding plan of care as per his assessment. I spent a total of 40 minutes on the date of service in preparation, delivery, documentation of the care provided to the patient excluding any time spent in the performance of separately billed services. WILLY Bautista [facility] Cardiology [facility] Supervising Physician Co-Signing Physician Notes I have reviewed the advance practitioner's documentation, and I agree with, and take responsibility for the plan of care. I have personally performed a history and physical examination on the patient. 88-year-old female with a past medical history of coronary disease (left heart catheterization done on 10/24/2019 with successful PCI and drug-eluting stent to the proximal to mid left anterior descending artery and chronic total occlusion of RCA with distal RCA filling retrograde from left to right collaterals), aortic valve stenosis status post bioprosthetic aortic valve replacement 09/2007, persistent atrial fibrillation (not on anticoagulation due to upper extremity hematoma), HTN, CKD presented to [facility] with symptoms of worsening shortness of breath over the past few days however history was difficult to obtain from patient due to underlying dementia. She denies chest pain, dyspnea at rest, orthopnea, PND, palpitations, or syncope. ECG done in the ED showed atrial fibrillation with no acute ischemic changes and rate controlled at 79 bpm. Patient was started on IV diuresis and responding well. Echocardiogram done on 08/11/2023 showed LVEF of greater than 70%, normal RV size and systolic function, normal gradients across the prosthetic aortic valve with no regurgitation, mild to moderate MR, moderate TR with moderate pulmonary hypertension with pulmonary artery systolic pressure 48 mmHg. Will continue IV diuresis until patient is euvolemic and will transition to p.o. I spent a total of 55 minutes on the date of service in preparation, delivery, and documentation of the care provided to this patient, excluding any time spent in the performance of separately billed service History of Present Illness Reason for Consultation: CHF exacerbation Requesting Physician: Tom diaz Attending Physician: Jesús Queen MD History of Present Illness Patient is a 88 year old female with PMHx as noted below that presents from [facility] with complaints of shortness of breath. Unfortunately due to her dementia, while very pleasant, is not able to provide any details of her presentation. Patient had been see in our cardiology office on 11/02/23 for hospital discharge follow up and was dong well at that time. Unclear how long patient has felt increased dyspnea. She denies any chest pain, pressure or palpitations. Denies any leg swelling. States that she doesn't eat a lot of salt and takes all other meds. She resides in a [facility] which makes it likely that her medications are distributed to her daily and meals are prepared. Past medical history: 1. Aortic valve stenosis status post bioprosthetic AVR (21 mm vega Faulkner pericardial valve), 10/03/2007 2. Coronary artery disease/NSTEMI, cardiac catheterization 10/24/2019 with findings of a 99% thrombotic occlusion of the proximal LAD, subtotal chronic ostial occlusion of RCA with distal right coronary artery filling retrograde from the left to right collaterals, s/p successful PCI/SOULEYMANE to the proximal to mid LAD. 3. Persistent atrial fibrillation, initially diagnosed, 08/18/2023 at [facility]. a. Anticoagulation deferred due to upper extremity hematoma while admitted. 4. Hypertension 5. CKD stage 3 6. Dyslipidemia 7. Polymyalgia rheumatica with chronic anemia 8. Dementia Primary Director Toxicology: Dr. Lynne. last office visit was 11/02/23 Patient was recently hospitalized here at [facility] 10/07-10/15/23 for acute on chronic diastolic HF EKG in admission demonstrates A-fib rate 76bpm with prior anterior infarct. Repeat EKG this AM unchanged. BNP 631 Troponin I mild elevation, flat trend 40.9/38.2. Of note, patient has a chronically elevated troponin. Chest xray: IMPRESSION: 1. Cardiomegaly and emphysema with mild pulmonary vascular congestion. 2. Small pleural effusions with dependent consolidation. 3. The tiny left apical pneumothorax seen previously is no longer visualized. REview of telemetry demonstrates A-fib with rates 70-80's. Allergies Allergy/AdvReac Type Severity Reaction Status Date / Time allopurinol Allergy Unknown ON Verified 08/18/23 11:23 [facility] Cephalosporins Allergy Unknown ON Verified 08/18/23 11:23 [facility] gramicidin D [From Neocidin] Allergy Unknown Redness of Verified 08/18/23 11:23 Skin neomycin [From Neocidin] Allergy Unknown Redness of Verified 08/18/23 11:23 Skin polymyxin B [From Neocidin] Allergy Unknown Redness of Verified 08/18/23 11:23 Skin chocolate AdvReac Unknown Verified 08/18/23 11:28 Home Medications Medication Instructions Recorded Confirmed Type aspirin 81 mg tablet,delayed 81 mg PO QAM 06/11/18 11/24/23 History release (Lyly Low Dose Aspirin) acetaminophen 500 mg tablet 500 mg PO Q4H PRN Pain Scale 4-6 07/29/18 11/24/23 History (Acetaminophen Extra Strength) ferrous sulfate 325 mg (65 mg 325 mg PO TID 07/29/18 11/24/23 History iron) tablet aluminum-mag hydroxide-simethicone 10 - 20 ml PO QID PRN Heartburn 09/27/19 11/24/23 History 400 mg-400 mg-40 mg/5 mL oral susp (Antacid-Simethicone) dimethicone-zinc oxide topical 1 applic topical DAILY PRN Skin 09/27/19 11/24/23 History cream (Rosemarie Protect Protection (dimethicone-zinc oxide) topical cream) fexofenadine 180 mg tablet 180 mg PO DAILY 09/27/19 11/24/23 History sennosides 8.6 mg tablet 8.6 mg PO QAM Constipation 09/27/19 11/24/23 History isosorbide mononitrate 30 mg 30 mg PO QAM #30 tabs 10/27/19 11/24/23 Rx tablet,extended release 24 hr docosanol 10 % topical cream 1 applic topical UD PRN Cold Sores 08/04/22 11/24/23 History (Abreva) omeprazole 20 mg capsule,delayed 20 mg PO DAILY 08/04/22 11/24/23 History release peg 400-propylene glycol (PF) 0.4 1 drp OPB BID Dry Eyes 08/04/22 11/24/23 History %-0.3 % eye drops in a dropperette (Systane (PF)) psyllium seed (sugar) oral powder 1 tbsp PO DAILY 08/04/22 11/24/23 History (Metamucil [place] oral powder) cholecalciferol (vitamin D3) 50 50 mcg PO DAILY 08/18/23 11/24/23 History mcg (2,000 unit) tablet (Vitamin D3) diphenhydramine HCl 25 mg capsule 25 mg PO HS PRN Allergies 08/18/23 11/24/23 History (Benadryl) docusate sodium 100 mg capsule 100 mg PO BID PRN Constipation #30 08/31/23 11/24/23 Rx caps atorvastatin 40 mg tablet 40 mg PO DAILY 10/08/23 11/24/23 History Aspercreme 10 % topical QID PRN Pain 11/24/23 11/24/23 History cyanocobalamin (vitamin B-12) 500 1,000 mcg PO DAILY 11/24/23 11/24/23 History mcg tablet furosemide 40 mg tablet 40 mg PO DAILY 11/24/23 11/24/23 History loperamide 2 mg tablet 2 mg PO DAILY PRN Diarrhea 11/24/23 11/24/23 History metoprolol succinate 50 mg 75 mg PO DAILY 11/24/23 11/24/23 History tablet,extended release 24 hr nitroglycerin 0.4 mg sublingual 0.4 mg sublingual UD PRN Chest Pain 11/24/23 11/24/23 History tablet (Nitrostat) phenyleph-shark liver 1 applic OR BID PRN Hemorrhoids 11/24/23 11/24/23 History [id number] rectal cream Patient History Medical History Acute on chronic diastolic HF (heart failure) CHF exacerbation Chronic atrial fibrillation Pleural effusion Encephalopathy Hypoxia Dementia Chronic diastolic heart failure Dyslipidemia NSTEMI (non-ST elevated myocardial infarction) 09/2019 Chronic kidney disease, stage 3 (moderate) Gout Osteoarthritis Diverticular disease Cervical cancer 1997--sx History of colon polyps Aortic valve stenosis Schatzki's ring History of esophageal dilatation History of falling Polymyalgia rheumatica Hypertension Gout Status post closed fracture of right femur Surgical History S/P aortic valve replacement with bioprosthetic valve S/P AVR History of vein stripping x2 H/O total hysterectomy History of colonoscopy H/O cataract extraction History of cardiac cath 08/20/2007 History of breast biopsy History of cholecystectomy History of esophagogastroduodenoscopy (EGD) H/O aortic valve replacement [place] [facility] [place] History Mother Rectal cancer Social History Smoking Status: Never smoker Tobacco Type: Cigarettes Second Hand Exposure: Yes; Do You Dip or Chew Tobacco: No; Hx Alcohol Use: No Hx Substance Use: No Preferred Language: Greenlandic Communication Ability: Effective Developer Evangelist Required: No Beliefs That Will Affect Care: None Current Living Situation: Personal Care Facility Current Living Situation Comment: [facility] assisted living current occupational status: retired Other Information That Helps Us Care for You: No Feels Safe at Home: Yes Safety Concerns: Feels Safe At This Time Assistive Devices: Walker Review of Systems Review of Systems: All systems reviewed & are unremarkable except as noted in HPI & below Physical Exam Constitutional: well developed, well nourished and + thin Neck: normal visual inspection and trachea midline Respiratory: normal respiratory effort, lungs clear to auscultation normal respiratory effort; no respiratory distress Auscultation: + diminished lung sounds (bilateral bases ); no crackles, no rales, no rhonchi and no wheezes Cardiovascular: Rate/Rhythm: + irregularly irregular Heart Sounds: normal S1 and normal S2; no murmur Vessels: dorsalis pedis pulses present; no JVD Extremities: no edema Skin: no rashes, warm and dry Psychiatric: Orientation: alert, oriented to person and oriented to place Affect: euthymic affect Results & Data Vital Signs (Past 12 Hours) Vital Signs Temp Pulse Pulse Resp BP Pulse Ox O2 Del Method 11/25/23 04:00 36.7 C 80 18 133/77 97 Nasal Cannula 11/24/23 23:43 36.6 C 92 H 18 131/72 96 Nasal Cannula 11/24/23 22:01 77 O2 Flow Rate 11/25/23 04:00 2 11/24/23 23:43 2 11/24/23 22:01 Laboratory Results Cardiac Enzymes 11/25/23 Range/Units 06:57 AST 16 (13-39) U/L CBC 11/25/23 Range/Units 06:57 WBC 6.38 (4.8-10.8) K/ul RBC 3.55 L (4.20-5.40) M/uL Hgb 11.3 L (12.0-16.0) g/dl Hct 36.7 L (37.0-47.0) % Plt Count 160 (130-400) K/uL Comprehensive Metabolic Panel 11/25/23 Range/Units 06:57 Sodium 141 (136-145) mmol/L Potassium 4.2 (3.5-5.1) mmol/L Chloride 103 (98-107) mmol/L Carbon Dioxide 36 H (21-32) mmol/L BUN 23 (6-23) mg/dl Creatinine 1.01 (0.6-1.2) mg/dl Glucose 88 (70-99(Fasting)) mg/dl Calcium 8.9 (8.6-10.3) mg/dl AST 16 (13-39) U/L ALT 18 (7-52) U/L Alkaline Phosphatase 63 (34-104) U/L Total Protein 6.3 (6.0-8.3) gm/dl Albumin 3.6 (3.4-5.0) gm/dl Intake and Output 11/24/23 11/25/23 11/25/23 22:59 06:59 14:59 Intake Total 100 / 300 100 / 300 120 / 120 Output Total 1350 / 1650 300 / 1650 Balance -1250 / -1350 -200 / -1350 119 / 119 Intake: IV 100 / 300 100 / 300 Magnesium Sulfate / D5w 1 gm In 100 / 200 100 / 200 100 ml @ 50 mls/hr IV Q2H [facility] Rx#:[id number] Oral 120 / 120 Output: Urine 750 / 750 Urine Amount (Catheter) 600 / 900 300 / 900 External 600 / 900 300 / 900 # Bowel Movements Other: Other Intake Source SIPS SIPS Weight 61.8 kg 60.7 kg Weight Measurement Method Built in [facility] Built in [facility] (2) CHF exacerbation Heart failure type: diastolic Qualified Code(s): I50.33 - Acute on chronic diastolic (congestive) heart failure (6) CAD (coronary artery disease) Associated angina: unspecified whether angina present Coronary Disease- Associated Artery/Lesion type: unspecified vessel or lesion type [place] vs. transplanted heart: [place] heart Qualified Code(s): I25.10 - Atherosclerotic heart disease of [place] coronary artery without angina pectoris
[2023-11-25 07:55] LABS: Albumin Globulin Ratio 1.3 (0.9-2); Albumin Level 3.6 gm/dl (3.4-5.0); BUN Creatinine Ratio 22.8 (10-20); Bilirubin,Total 1.6 mg/dl (0.2-1.0); Calcium 8.9 mg/dl (8.6-10.3); Creatinine Clr Calc Pharmacy 37.6 ml/min; Globulin 2.7 gm/dl (2.5-4.0); Magnesium 2.1 mg/dl (1.7-2.4); Potassium 4.2 mmol/L (3.5-5.1); Total Protein 6.3 gm/dl (6.0-8.3)
[2023-11-25] MEDS: CYANOCOBALAMIN (B-12) 500 MCG TABLET PO SCH (08:39)
[2023-11-25] MEDS: SENNA 8.6 MG TAB PO SCH (08:39)
[2023-11-25] MEDS: ISOSORBIDE MONO EXTENDED REL 30 MG TABCR PO SCH (08:39)
[2023-11-25] MEDS: POTASSIUM CHLORIDE CRTAB 20 MEQ TABCR PO SCH (08:39)
[2023-11-25] MEDS: ATORVASTATIN 40 MG TAB PO SCH (08:40)
[2023-11-25] MEDS: METOPROLOL SUCC 25MG EXT REL TAB PO SCH (08:40)
[2023-11-25] MEDS: FUROSEMIDE 40 MG/4 ML VIAL IV SCH (08:40)
[2023-11-25] MEDS: PANTOprazole 40 MG TAB PO SCH (08:40)
[2023-11-25] MEDS: ASPIRIN 81 MG ECTAB PO SCH (08:40)
[2023-11-25] MEDS: FEXOFENADINE HCL 180 MG TAB PO SCH (08:40)
[2023-11-25] MEDS: CHOLECALCIFEROL 25 MCG (1000 UNITS) TAB PO SCH (08:40)
--- NOTE | 2023-11-25 11:34 | Hospitalist Progress Note ---
Date of Service November 25, 2023 Assessment & Plan (1) CHF exacerbation: (2) Acute dyspnea: (3) Chronic diastolic heart failure: (4) S/P aortic valve replacement with bioprosthetic valve: (5) Elevated troponin: Plan: per admitting service notes with addendum: Batsheva Dumas is an 88y/o F with PMHx of dementia, dyslipidemia, NSTEMI [09/2019], CKD stage III, gout, osteoarthritis, diverticular disease, chronic diastolic heart failure, persistent atrial fibrillation, aortic valve stenosis s/p aortic valve replacement [2007], polymyalgia rheumatica, HTN, CAD, glaucoma and chronic anemia who presented to the ED via EMS for evaluation of SOB and was found to have CHF exacerbation. -Patient did undergo left-sided thoracentesis for tx of pleural effusion during last hospital admission. -Most recent echo performed on 08/04/22; showed severe concentric left marah tricular hypertrophy, EF =>70%, bioprosthetic aortic valve with normal prosthetic gradients/no significant regurgitation. -PureWick catheter in place for strict I/Os -Sodium restriction diet, daily weights -Oxygen sat of 89% upon arrival to ED, improved to 98% with additional of supplement oxygen. Continue 2L oxygen via nasal cannula. -Chest x-ray showed cardiomegaly and emphysema with mild pulmonary vascular congestion, small pleural effusions with dependent consolidation. -Monitor for any signs of impending respiratory distress, wean supplemental oxygen as able. -Most recent repeat troponin of 38.2, downtrending from last troponin of 40.9. BNP is elevated at 631. -Cardiology consult 11/24 Lasix 40 mg IV daily Cardiology service consulted (6) CAD (coronary artery disease): Plan: -No active chest pain, troponin trending flat at 38.2. -Low suspicion for ACS, likely increased demand. -Continue isosorbide mononitrate ER -Monitor for any signs of acute onset chest pain. (7) Persistent atrial fibrillation: Plan: -Anticoagulation was previously deferred d/t right upper extremity hematoma, which occurred during her previous admission in July of this year. -Recently seen by cardiology on 11/02/23 -EKG showing atrial fibrillation, asymptomatic -Continue metoprolol succinate, aspirin (8) Dementia: Plan: -Patient is A&O x 3 during my examination, recalls where she is and how she got here. -Continue to monitor for any signs of worsening delirium throughout hospital stay. (9) Hypomagnesemia: Plan: -Replete magnesium (10) Hypertension: Plan: -Chronic, stable -Continue metoprolol succinate -Continue to monitor BP closely throughout hospital stay (11) Anemia: Plan: -Chronic, stable -Continue to monitor CBC while hospitalized -Continue ferrous sulfate (12) CKD (chronic kidney disease), stage III: Plan: -Chronic, creatinine at baseline -Continue to monitor renal function while hospitalized (13) Dyslipidemia: Plan: -Continue atorvastatin (14) Pressure ulcer, stage I, non-blanching erythema: Plan: -As noted in the physical examination, non-blanching sacral erythema is present. -Continue to monitor sacral region for any changes of the skin formation. -Order placed for pressure ulcer precautions Admission and Anticipated Discharge Date Admission Date: November 24, 2023 Subjective Follow-up for CHF exacerbation, etc. Seen resting in bed, multiple, sitting up, on 2 L of oxygen by nasal cannula States she feels improved compared yesterday Breathing is improving No fever, chills, cough No chest pain, palpitations, dizziness No leg pain No other new symptom Review of Systems Review of Systems: all noted and negative except for above Physical Exam Physical Exam: General- oriented x 3, not in distress, speaks in sentences with no effort or accessory muscle use Eyes- anicteric Neck- no JVD Lungs-mild rales bilaterally No wheezing Heart- normal rate, regular rhythm; positive complete 2 holosystolic murmur Abdomen- normal bowel sounds, nondistended, soft, no tenderness Extremities-mild pretibial edema, no erythema/warmth/tenderness, no calf tenderness Neuro- alert, oriented x 3; no gross focal neurologic deficits Skin- warm & dry Results & Data Results & Data Vital Signs (Past 12 Hours) Vital Signs Temp Pulse Pulse Pulse Resp BP Pulse Ox 11/25/23 10:10 74 11/25/23 08:35 36.8 C 84 17 148/89 H 98 11/25/23 04:00 36.7 C 80 18 133/77 97 11/24/23 23:43 36.6 C 92 H 18 131/72 96 O2 Del Method O2 Flow Rate 11/25/23 10:10 11/25/23 08:35 Nasal Cannula 2 05/05/24 04:00 Nasal Cannula 2 11/24/23 23:43 Nasal Cannula 2 all noted and reviewed including below (1) CHF exacerbation Heart failure type: diastolic Qualified Code(s): I50.33 - Acute on chronic diastolic (congestive) heart failure (6) CAD (coronary artery disease) Coronary Disease-Associated Artery/Lesion type: unspecified vessel or lesion type [place] vs. transplanted heart: [place] heart Associated angina: unspecified whether angina present Qualified Code(s): I25.10 - Atherosclerotic heart disease of [place] coronary artery without angina pectoris (8) Dementia Dementia type: unspecified type Dementia severity: unspecified severity Dementia behavioral or psychological symptom: unspecified whether behavioral, psychotic, or mood disturbance or anxiety Qualified Code(s): F03.90 - Uns pecified dementia, unspecified severity, without behavioral disturbance, psychotic disturbance, mood disturbance, and anxiety (10) Hypertension Hypertension type: unspecified Qualified Code(s): I10 - Essential (primary) hypertension (11) Anemia Anemia type: unspecified type Qualified Code(s): D64.9 - Anemia, unspecified (12) CKD (chronic kidney disease), stage III Chronic kidney disease stage 3 subtype: unspecified whether 3a or 3b Qualifi ed Code(s): N18.30 - Chronic kidney disease, stage 3 unspecified (14) Pressure ulcer, stage I, non-blanching erythema Pressure injury location: sacral region Qualified Code(s): L89.151 - Pressure ulcer of sacral region, stage 1
--- NOTE | 2023-11-25 22:26 | Electrocardiogram Report ---
Test Reason : Blood Pressure : / mmHG Vent. Rate : 076 BPM Atrial Rate : 000 BPM P-R Int : 000 ms QRS Dur : 084 ms QT Int : 398 ms P-R-T Axes : 000 057 083 degrees QTc Int : 447 ms Atrial fibrillation Minimal voltage criteria for LVH, may be normal variant ( Luis product ) Anterior infarct , age undetermined Abnormal ECG When compared with ECG of 09-OCT-2023 06:03, Anterior infarct is now Present Confirmed by Yoshi Sandoval ([id number]) on 11/25/2023 10:26:16 PM Referred By: Jim Garcia [place] Confirmed By:Yoshi Sandoval
--- NOTE | 2023-11-25 22:57 | Electrocardiogram Report ---
Test Reason : Blood Pressure : / mmHG Vent. Rate : 079 BPM Atrial Rate : 131 BPM P-R Int : 000 ms QRS Dur : 090 ms QT Int : 398 ms P-R-T Axes : 000 063 072 degrees QTc Int : 456 ms Atrial fibrillation Anterior infarct (cited on or before 24-NOV-2023) Abnormal ECG When compared with ECG of 24-NOV-2023 10:05, (unconfirmed) No significant change was found Confirmed by Yoshi Sandoval ([id number]) on 11/25/2023 10:57:02 PM Referred By: Jim Garcia [place] Confirmed By:Yoshi Sandoval
--- NOTE | 2023-11-26 09:58 | Cardiology Progress Note ---
Date of Service November 26, 2023 Assessment & Plan (1) Acute dyspnea: (2) CHF exacerbation: (3) Persistent atrial fibrillation: (4) Elevated troponin: (5) S/P aortic valve replacement with bioprosthetic valve: (6) CAD (coronary artery disease): Plan Admission with acute decompensated diastolic congestive heart failure. Volume status appears euvolemic today. - Discontinue IV furosemide after today's dose - Transition to oral torsemide 20 mg/day in AM of 11/27/2023 - Add low dose spironolactone IF hypokalemia observed Chronic atrial fibrillation - Continue metoprolol succinate 75 mg/day for rate control - Risks of anticoagulation felt to be greater than the benefit. ASCVD. - Cardiac catheterization on 10/24/2019 revealed a 99% thrombotic occlusion of the proximal LAD, subtotal chronic ostial occlusion of RCA with the distal RCA filling retrograde from the left to right collaterals, status post PCI of the proximal to mid LAD with a SOULEYMANE. - Asymptomatic. - Continue medical management (beta-pernell, ASA, statin, long acting nitrates) Aortic valve stenosis - Status post bioprosthetic AVR with a 21 mm Oscar Faulkner pericardial valve on 10/03/2007 Admission and Anticipated Discharge Date Admission Date: November 24, 2023 Supervising Physician Co-Signing Physician Notes I have reviewed the advance practitioner's documentation, and I agree with, and take responsibility for the plan of care. I have personally performed a history and physical examination on the patient. Clinical findings of heart failure improving. Plan as noted above transition to oral torsemide in a.m. Subjective Patient seen and examined. Chart, medications, and telemetry reviewed. She describes her breathing as "excellent." No chest pain. No palpitations. No PND. No peripheral edema. No dizziness. Telemetry: Atrial fibrillations with an occasional PVC, heart rates in the 70's to 100 bpm range. Review of Systems Review of Systems: Demented. Physical Exam Physical Exam: General: A&Ox3. NAD. HENT: Normocephalic. Atraumatic. Eyes: PER. Conjunctiva pink, sclera clear. Neck: No JVD. No HJR. Heart: Irregularly irregular at 80 bpm. Soft apical systolic murmur. No diastolic murmur. Lungs: Dry crackles. No wheeze. Abdomen: +BS. Soft. Nontender. No masses or organomegaly. Extremities: No clubbing, cyanosis, or edema. Limited neurological examination is without focal deficits. Pulses: Posterior tibial=1/4. Results & Data Vital Signs (Past 12 Hours) Vital Signs Temp Pulse Pulse Resp BP Pulse Ox O2 Del Method 11/26/23 08:58 Room Air 11/26/23 07:49 36.9 C 57 L 18 156/98 H 96 Room Air 11/26/23 07:00 80 11/26/23 04:00 36.6 C 81 18 142/88 H 93 Room Air 11/25/23 23:25 36.9 C 89 18 117/80 94 Room Air 11/25/23 22:00 85 Laboratory Results Intake and Output 11/25/23 11/26/23 11/26/23 22:59 06:59 14:59 Intake Total 150 / 270 Balance 150 / 269 Intake: Oral 150 / 270 Other: Weight 60.2 kg Weight Measurement Method Built in [facility] (2) CHF exacerbation Heart failure type: diastolic Qualified Code(s): I50.33 - Acute on chronic diastolic (congestive) heart failure (6) CAD (coronary artery disease) Associated angina: unspecified whether angina present Coronary Disease- Associated Artery/Lesion type: unspecified vessel or lesion type [place] vs. transplanted heart: [place] heart Qualified Code(s): I25.10 - Atherosclerotic heart disease of [place] coronary artery without angina pectoris
[2023-11-26 10:43] LABS: Basophils # (auto) 0.05 K/uL (0.00-0.20); Basophils % (auto) 0.8 %; Eosinophils # (auto) 0.25 K/uL (0.00-0.50); Immature Granulocytes # (auto) 0.03 K/uL (0.01-0.20); Immature Granulocytes % (auto) 0.5 %; Lymphocytes # (auto) 0.63 K/uL (1.20-3.40); Mean Corpuscular Hemoglobin 32.4 pg (25.0-34.0); Mean Corpuscular Hgb Conc 31.4 g/dL (32.0-36.0); Mean Corpuscular Volume 103.2 fL (80.0-100.0); Mean Platelet Volume 11.2 fL (9.4-12.4); Monocytes # (auto) 0.38 K/uL (0.11-0.59); Neutrophils # (auto) 4.97 K/uL (1.40-6.50); Neutrophils % (auto) 78.7 %; Platelet Count 181 K/uL (130-400); RDW Coefficient of Variation 13.3 % (11.5-14.5); RDW Standard Deviation 51.1 fL (36.4-46.3); Red Blood Count 3.39 M/uL (4.20-5.40); White Blood Count 6.31 K/ul (4.8-10.8)
[2023-11-26 10:51] LABS: Calcium 8.8 mg/dl (8.6-10.3); Creatinine Clr Calc Pharmacy 34.6 ml/min; Est GFR (African American) 52.9 ml/min; Est GFR (Non-African American) 45.6 ml/min; Potassium 4.2 mmol/L (3.5-5.1)
--- NOTE | 2023-11-26 16:53 | Hospitalist Progress Note ---
Date of Service November 26, 2023 Assessment & Plan (1) CHF exacerbation: (2) Acute dyspnea: (3) Chronic diastolic heart failure: (4) S/P aortic valve replacement with bioprosthetic valve: (5) Elevated troponin: Plan: per admitting service notes with addendum: Batsheva Dumas is an 88y/o F with PMHx of dementia, dyslipidemia, NSTEMI [09/2019], CKD stage III, gout, osteoarthritis, diverticular disease, chronic diastolic heart failure, persistent atrial fibrillation, aortic valve stenosis s/p aortic valve replacement [2007], polymyalgia rheumatica, HTN, CAD, glaucoma and chronic anemia who presented to the ED via EMS for evaluation of SOB and was found to have CHF exacerbation. -Patient did undergo left-sided thoracentesis for tx of pleural effusion during last hospital admission. -Most recent echo performed on 08/04/22; showed severe concentric left marah tricular hypertrophy, EF =>70%, bioprosthetic aortic valve with normal prosthetic gradients/no significant regurgitation. -PureWick catheter in place for strict I/Os -Sodium restriction diet, daily weights -Oxygen sat of 89% upon arrival to ED, improved to 98% with additional of supplement oxygen. Continue 2L oxygen via nasal cannula. -Chest x-ray showed cardiomegaly and emphysema with mild pulmonary vascular congestion, small pleural effusions with dependent consolidation. -Monitor for any signs of impending respiratory distress, wean supplemental oxygen as able. -Most recent repeat troponin of 38.2, downtrending from last troponin of 40.9. BNP is elevated at 631. -Cardiology consult / Lasix 40 mg IV daily--> transition to Torsemide 20mg po daily tomorrow +/- Spironolactone Cardiology service consulted (6) CAD (coronary artery disease): Plan: -No active chest pain, troponin trending flat at 38.2. -Low suspicion for ACS, likely increased demand. -Continue isosorbide mononitrate ER -Monitor for any signs of acute onset chest pain. (7) Persistent atrial fibrillation: Plan: -Anticoagulation was previously deferred d/t right upper extremity hematoma, which occurred during her previous admission in July of this year. -Recently seen by cardiology on 11/02/23 -EKG showing atrial fibrillation, asymptomatic -Continue metoprolol succinate, aspirin (8) Dementia: Plan: -Patient is A&O x 3 during my examination, recalls where she is and how she got here. -Continue to monitor for any signs of worsening delirium throughout hospital stay. (9) Hypomagnesemia: Plan: -Replete magnesium (10) Hypertension: Plan: -Chronic, stable -Continue metoprolol succinate -Continue to monitor BP closely throughout hospital stay (11) Anemia: Plan: -Chronic, stable -Continue to monitor CBC while hospitalized -Continue ferrous sulfate (12) CKD (chronic kidney disease), stage III: Plan: -Chronic, creatinine at baseline -Continue to monitor renal function while hospitalized (13) Dyslipidemia: Plan: -Continue atorvastatin (14) Pressure ulcer, stage I, non-blanching erythema: Plan: -As noted in the physical examination, non-blanching sacral erythema is present. -Continue to monitor sacral region for any changes of the skin formation. -Order placed for pressure ulcer precautions Admission and Anticipated Discharge Date Admission Date: November 24, 2023 Subjective ff up for CHF exacerbation, etc seen resting in chair, comfortable states she feels better overall breathing improving no chest pain, dyspnea, palpitations, dizziness no other symptoms Review of Systems Review of Systems: all noted and negative except for above Physical Exam Physical Exam: General- oriented x 3, not in distress, speaks in sentences with no effort or accessory muscle use Eyes- anicteric Neck- no JVD Lungs- clear breath sounds bilaterally, no crackles/wheezing Heart- normal rate, regular rhythm; (+) murmur Abdomen- normal bowel sounds, nondistended, soft, no tenderness Extremities- no pretibial edema, no calf tenderness Neuro- alert, oriented x 3; no gross focal neurologic deficits Skin- warm & dry Results & Data Results & Data Vital Signs (Past 12 Hours) Vital Signs Temp Pulse Pulse Resp BP BP Pulse Ox 11/26/23 16:03 36.6 C 74 17 152/91 H 95 11/26/23 13:59 96 H 11/26/23 11:43 36.3 C L 68 18 100/68 97 11/26/23 08:58 11/26/23 07:49 36.9 C 57 L 18 156/98 H 96 11/26/23 07:00 80 O2 Del Method 11/26/23 16:03 Room Air 11/26/23 13:59 11/26/23 11:43 Room Air 11/26/23 08:58 Room Air 11/26/23 07:49 Room Air 11/26/23 07:00 all noted and reviewed including below (1) CHF exacerbation Heart failure type: diastolic Qualified Code(s): I50.33 - Acute on chronic diastolic (congestive) heart failure (6) CAD (coronary artery disease) Coronary Disease-Associated Artery/Lesion type: unspecified vessel or lesion type [place] vs. transplanted heart: [place] heart Associated angina: unspecified whether angina present Qualified Code(s): I25.10 - Atherosclerotic heart disease of [place] coronary artery without angina pectoris (8) Dementia Dementia type: unspecified type Dementia severity: unspecified severity Dementia behavioral or psychological symptom: unspecified whether behavioral, psychotic, or mood disturbance or anxiety Qualified Code(s): F03.90 - Unsp ecified dementia, unspecified severity, without behavioral disturbance, psychotic disturbance, mood disturbance, and anxiety (10) Hypertension Hypertension type: unspecified Qualified Code(s): I10 - Essential (primary) hypertension (11) Anemia Anemia type: unspecified type Qualified Code(s): D64.9 - Anemia, unspecified (12) CKD (chronic kidney disease), stage III Chronic kidney disease stage 3 subtype: unspecified whether 3a or 3b Qualifie d Code(s): N18.30 - Chronic kidney disease, stage 3 unspecified (14) Pressure ulcer, stage I, non-blanching erythema Pressure injury location: sacral region Qualified Code(s): L89.151 - Pressure ulcer of sacral region, stage 1
[2023-11-27 07:43] LABS: BUN Creatinine Ratio 22.7 (10-20); Creatinine Clr Calc Pharmacy 31.1 ml/min; Est GFR (African American) 47.5 ml/min; Potassium 4.4 mmol/L (3.5-5.1)
[2023-11-27] MEDS: TORSEMIDE 20 MG TAB PO SCH (08:08)
--- NOTE | 2023-11-27 13:27 | Cardiology Progress Note ---
Date of Service November 27, 2023 Assessment & Plan (1) Acute dyspnea: (2) CHF exacerbation: (3) Persistent atrial fibrillation: (4) Elevated troponin: (5) S/P aortic valve replacement with bioprosthetic valve: (6) CAD (coronary artery disease): Plan Admission with acute decompensated diastolic congestive heart failure. - Volume status: Normovolemic. - IV furosemide discontinued on 11/26/2023. - Torsemide 20 mg/day initiated in AM of 11/27/2023 Chronic atrial fibrillation - Rate controlled on metoprolol succinate 75 mg/day - Risks of anticoagulation felt to be greater than the benefit. ASCVD. - Catheterization on 10/24/2019 wtih a 99% thrombotic occlusion of the proximal LAD s/p PCI SOULEYMANE, ostial subtotal chronic occlusion of the RCA with the distal RCA filling retrograde from the left to right collaterals - Asymptomatic. - Continue medical management (beta-pernell, ASA, statin, long acting nitrates) Aortic valve stenosis - Status post bioprosthetic AVR with a 21 mm Oscar Faulkner pericardial valve on 10/03/2007 Please contact with any questions or concerns. Admission and Anticipated Discharge Date Admission Date: November 24, 2023 Supervising Physician Co-Signing Physician Notes I have reviewed the advance practitioner's documentation, and I agree with, and take responsibility for the plan of care. I have personally performed a history and physical examination on the patient. Subjective Patient seen and examined. Chart, medications, telemetry reviewed. No complaints or concerns. Anxious for discharge back to [facility]. Review of Systems Review of Systems: No chest pain. No change in breathing. No palpitations. No dizziness or lightheadedness. Physical Exam Physical Exam: General: A&Ox3. NAD. HENT: Normocephalic. Atraumatic. Eyes: PER. Conjunctiva pink, sclera clear. Neck: No JVD. No HJR. Heart: Irregularly irregular at 80 bpm. Soft apical systolic murmur. No diastolic murmur. Lungs: Dry crackles. No wheeze. Abdomen: +BS. Soft. Nontender. No masses or organomegaly. Extremities: No clubbing, cyanosis, or edema. Limited neurological examination is without focal deficits. Pulses: Posterior tibial=1/4. Results & Data Vital Signs (Past 12 Hours) Vital Signs Temp Pulse Pulse Resp BP Pulse Ox O2 Del Method 11/27/23 12:58 37.0 C 86 14 96/63 L 93 11/27/23 11:13 37.0 C 86 14 96/63 L 93 Room Air 11/27/23 08:55 Room Air 11/27/23 08:06 159/99 H 11/27/23 07:21 36.8 C 74 16 191/96 H 97 Room Air 11/27/23 07:00 79 11/27/23 04:39 147/93 H 11/27/23 03:48 36.7 C 67 18 165/95 H 97 Room Air Laboratory Results Comprehensive Metabolic Panel 11/27/23 Range/Units 06:05 Sodium 142 (136-145) mmol/L Potassium 4.4 (3.5-5.1) mmol/L Chloride 102 (98-107) mmol/L Carbon Dioxide 34 H (21-32) mmol/L BUN 27 H (6-23) mg/dl Creatinine 1.19 (0.6-1.2) mg/dl Glucose 89 (70-99(Fasting)) mg/dl Calcium 9.0 (8.6-10.3) mg/dl Intake and Output 11/26/23 11/27/23 11/27/23 22:59 06:59 14:59 Intake Total 240 / 620 100 / 620 Balance 240 / 620 100 / 620 Intake: Oral 240 / 620 100 / 620 Other: # Unmeasured Voids 1 Weight 59.1 kg 59.1 kg Weight Measurement Method Built in [facility] Patient Weight 11/28/23 06:59 Weight 59.1 kg Diagnostic Findings Telemetry: Atrial fibrillation in the 80's and 90's (2) CHF exacerbation Heart failure type: diastolic Qualified Code(s): I50.33 - Acute on chronic diastolic (congestive) heart failure (6) CAD (coronary artery disease) Associated angina: unspecified whether angina present Coronary Disease- Associated Artery/Lesion type: unspecified vessel or lesion type [place] vs. transplanted heart: [place] heart Qualified Code(s): I25.10 - Atherosclerotic heart disease of [place] coronary artery without angina pectoris
--- NOTE | 2023-11-27 13:38 | Discharge Summary ---
Discharge Summary Date of Service November 27, 2023 Notes For Next Care Provider Medication Changes From Visit Stop Lasix. Start torsemide 20 mg p.o. daily. Admission HPI Per Admitting Provider Batsheva Dumas is an 88y/o F with PMHx of dementia, dyslipidemia, NSTEMI [09/2019], CKD stage III, gout, osteoarthritis, diverticular disease, chronic diastolic heart failure, persistent atrial fibrillation, aortic valve stenosis s/p aortic valve replacement [2007], polymyalgia rheumatica, HTN, CAD, glaucoma and chronic anemia who presented to the ED via EMS for evaluation of SOB. Patient currently resides at [facility]. History obtained from the patient and her sister, and associated ED/PCP/previous admission/specialist records. Patient was previously hospitalized in September, 10/08/23-10/15/23, and was diagnosed with acute on chronic diastolic HF. At that time, she was discharged on furosemide 40mg PO QAM and metoprolol succinate ER 24hr 75mg PO QAM [dosage increase to both of the medications]. Patient did undergo left-sided thoracentesis for treatment of a pleural effusion secondary to heart failure during this hospital stay, and was found to have atrial fibrillation on admission. Patient was not discharged on anticoagulation therapy, as she had an upper extremity hematoma at that time. She did follow-up with cardiology on 11/02/23. Of note, patient did undergo cardiac catheterization on 10/24/2019 with findings of severe two-vessel disease including 95+% mid-LAD stenosis and subtotal occlusion of her RCA with [id number]-[id number] collaterals. Successful PCI of proximal to mid LAD with single drug-eluding stent was done at that time. Cardiology recommended continuing aspirin 81mg daily and atorvastatin 40mg daily, and no other changes were made to her medications at that appointment. Most recent echocardiogram was performed on 08/18/23, which showed the following: atrial fibrillation, severe concentric left ventricular hypertrophy, EF >70%, mild to moderate mitral regurgitation, moderate tricuspid regurgitation, bioprosthetic aortic valve with no significant regurgitation and a mildly elevated pulmonary systolic pressure estimated to be 48mmHg. Patient was seen this afternoon at bedside, and was accompanied in the room by her sister. Patient reports that she has been experiencing SOB with exertion over the past few weeks, and that it has progressively gotten worse. She denies any incidences of chest pain, but mentions that her weight has gradually been increasing over the past few weeks as well. She notes that she weighed approximately 133lbs the last time a weight check was conducted at [facility]. Patient denies any coughing, fevers or congestion. She does ambulate with a walker on a daily basis. Patient also denies any lightheadedness/dizziness with exertion, nor any recent falls/episodes of lost consciousness. Patient's sister did mention that her legs have been looking more "swollen" lately, as she visits her every so often at [facility]. Patient does note that she wears Depends on a daily basis, but denies any urinary issues such as dysuria or hematuria. Patient also denies any GI issues, but she does take medication to alleviate symptoms of chronic constipation. PureWick external catheter is in place, noted 400cc of urine output when seen at bedside. Admission Exam Per Admitting Provider General Appearance: Reclined in bed, no conversational dyspnea present. Patient is in no acute distress. Currently on 2L oxygen nasal cannula. Head: Normocephalic, atraumatic. Eyes: Normal inspection, no acute trauma. PERRL, conjunctivae normal, anicteric sclerae. ENT: External ear and nose normal, oropharynx normal. Mucous membranes moist, no nasal congestion. Neck: Normal visual inspection, trachea midline, no thyromegaly. Respiratory: Lung sounds diminished bilaterally, crackles heard at both bases. No accessory muscle use. Cardiovascular: Regular rate, irregular rhythm. Normal peripheral pulses, mild bilateral pedal edema. Vessels: No JVD. Chest: Normal inspection of chest. Abdomen/GI: Normal bowel sounds, soft, nontender, no hepatosplenomegaly. Extremities/Musculoskeletal: No cyanosis or clubbing. Neurologic: PERRL, EOMI, accommodation nl, no face palsy, no dysarthria, CN's II-XI intact bilaterally and moves all extremities. Psychiatric: A+Ox3, euthymic affect. Skin: Non-blanching sacral erythema w/out ulcer formation noted. Principal Dx & Hospital Course #1 = Principal Diagnosis (1) CHF exacerbation: (2) Acute dyspnea: (3) Chronic diastolic heart failure: (4) S/P aortic valve replacement with bioprosthetic valve: (5) Elevated troponin: per admitting service notes with addendum: Batsheva Dumas is an 88y/o F with PMHx of dementia, dyslipidemia, NSTEMI [09/2019], CKD stage III, gout, osteoarthritis, diverticular disease, chronic diastolic heart failure, persistent atrial fibrillation, aortic valve stenosis s/p aortic valve replacement [2007], polymyalgia rheumatica, HTN, CAD, glaucoma and chronic anemia who presented to the ED via EMS for evaluation of SOB and was found to have CHF exacerbation. -Patient did undergo left-sided thoracentesis for tx of pleural effusion during last hospital admission. -Most recent echo performed on 08/04/22; showed severe concentric left ventricular hypertrophy, EF =>70%, bioprosthetic aortic valve with normal prosthetic gradients/no significant regurgitation. -Oxygen sat of 89% upon arrival to ED, improved to 98% with additional of supplement oxygen. Continue 2L oxygen via nasal cannula. -Chest x-ray showed cardiomegaly and emphysema with mild pulmonary vascular congestion, small pleural effusions with dependent consolidation. -Monitor for any signs of impending respiratory distress, wean supplemental oxygen as able. -Most recent repeat troponin of 38.2, downtrending from last troponin of 40.9. BNP is elevated at 631. -Cardiology consult 11/26 Given Lasix 40 mg IV daily----> clinically improved, weaned off oxygen supplement transitioned to Torsemide 20mg po daily Follow-up with cardiology in 1 week (6) CAD (coronary artery disease): -No active chest pain, troponin trending flat at 38.2. -Low suspicion for ACS, likely increased demand -Continue isosorbide mononitrate ER (7) Persistent atrial fibrillation: -Anticoagulation was previously deferred d/t right upper extremity hematoma, which occurred during her previous admission in July of this year. -Recently seen by cardiology on 11/02/23 -EKG showing atrial fibrillation, asymptomatic -Continue metoprolol succinate, aspirin (8) Dementia: -Patient is A&O x 3 during my examination, recalls where she is and how she got here. -Continue to monitor for any signs of worsening delirium throughout hospital stay. (9) Hypomagnesemia: - replaced (10) Hypertension: -Chronic, stable -Continue metoprolol succinate (11) Anemia: -Chronic, stable (12) CKD (chronic kidney disease), stage III: -Chronic, creatinine at baseline (13) Dyslipidemia: -Continue atorvastatin (14) Pressure ulcer, stage I, non-blanching erythema: -As noted in the physical examination, non-blanching sacral erythema is present. -Continue to monitor sacral region for any changes of the skin formation. -Order placed for pressure ulcer precautions Discharge Exam General- oriented x 3, not in distress, speaks in sentences with no effort or accessory muscle use Eyes- anicteric Neck- no JVD Lungs- clear breath sounds bilaterally, no rales/wheezes Heart- normal rate, regular rhythm; no murmurs Abdomen- normal bowel sounds, nondistended, soft, nontender Extremities- no pretibial edema, no calf tenderness Neuro- alert, oriented x 3; no gross focal neurologic deficits Skin- warm & dry Updated Medication List Medication Instructions Recorded Confirmed Type aspirin 81 mg tablet,delayed 81 mg PO QAM 06/11/18 11/24/23 History release (Lyly Low Dose Aspirin) acetaminophen 500 mg tablet 500 mg PO Q4H PRN Pain Scale 4-6 07/29/18 11/24/23 History (Acetaminophen Extra Strength) ferrous sulfate 325 mg (65 mg 325 mg PO TID 07/29/18 11/24/23 History iron) tablet aluminum-mag hydroxide-simethicone 10 - 20 ml PO QID PRN Heartburn 09/27/19 11/24/23 History 400 mg-400 mg-40 mg/5 mL oral susp (Antacid-Simethicone) dimethicone-zinc oxide topical 1 applic topical DAILY PRN Skin 09/27/19 11/24/23 History cream (Rosemarie Protect Protection (dimethicone-zinc oxide) topical cream) fexofenadine 180 mg tablet 180 mg PO DAILY 09/27/19 11/24/23 History sennosides 8.6 mg tablet 8.6 mg PO QAM Constipation 09/27/19 11/24/23 History isosorbide mononitrate 30 mg 30 mg PO QAM #30 tabs 10/27/19 11/24/23 Rx tablet,extended release 24 hr docosanol 10 % topical cream 1 applic topical UD PRN Cold Sores 08/04/22 11/24/23 History (Abreva) omeprazole 20 mg capsule,delayed 20 mg PO DAILY 08/04/22 11/24/23 History release peg 400-propylene glycol (PF) 0.4 1 drp OPB BID Dry Eyes 08/04/22 11/24/23 History %-0.3 % eye drops in a dropperette (Systane (PF)) psyllium seed (sugar) oral powder 1 tbsp PO DAILY 08/04/22 11/24/23 History (Metamucil [place] oral powder) cholecalciferol (vitamin D3) 50 50 mcg PO DAILY 08/18/23 11/24/23 History mcg (2,000 unit) tablet (Vitamin D3) diphenhydramine HCl 25 mg capsule 25 mg PO HS PRN Allergies 08/18/23 11/24/23 History (Benadryl) docusate sodium 100 mg capsule 100 mg PO BID PRN Constipation #30 08/31/23 11/24/23 Rx caps atorvastatin 40 mg tablet 40 mg PO DAILY 10/08/23 11/24/23 History Aspercreme 10 % topical QID PRN Pain 11/24/23 11/24/23 History cyanocobalamin (vitamin B-12) 500 1,000 mcg PO DAILY 11/24/23 11/24/23 History mcg tablet loperamide 2 mg tablet 2 mg PO DAILY PRN Diarrhea 11/24/23 11/24/23 History metoprolol succinate 50 mg 75 mg PO DAILY 11/24/23 11/24/23 History tablet,extended release 24 hr nitroglycerin 0.4 mg sublingual 0.4 mg sublingual UD PRN Chest Pain 11/24/23 11/24/23 History tablet (Nitrostat) phenyleph-shark liver 1 applic CA BID PRN Hemorrhoids 11/24/23 11/24/23 History [id number] rectal cream torsemide 20 mg tablet 20 mg PO QAM 30 days #30 tabs 11/27/23 Rx Hospital Stay Data Consultations 11/24/23 11:26 ED Decision to Admit Stat 11/24/23 14:53 Consult Cardiology Routine Pending Results Patient Have Any Pending Studies at Discharge: No Discharge Instructions Given to Patient (Per Discharging Provider) PLEASE REFER TO YOUR NEW MEDICATION LIST AND FOLLOW INSTRUCTIONS CAREFULLY. YOUR NEW MEDICATIONS INCLUDE: Stop Lasix. Start torsemide 20 mg p.o. daily. PLEASE CALL YOUR PRIMARY CARE PHYSICIAN OR RETURN TO THE ER IF WITH WORSENING OF SYMPTOMS, INCLUDING Shortness of breath, chest pain, palpitations, dizziness, leg swelling, etc. FOLLOW UP WITH PRIMARY CARE PHYSICIAN OUTLINED ABOVE. Follow-up with cardiology clinic as outlined above. Total Time Total Time Spent Total Time Spent (In Minutes): 35 minutes
== END 2023-11-27 14:19 | disposition home or self-care (01) | DRG 291 ==
LOC: ED 09:37 → SUATTDRO 11:36 → EDINP 11:36 → 2N 13:52
DX: E78.5 Hyperlipidemia, unspecified; L89.151 Pressure ulcer of sacral region, stage 1; E83.42 Hypomagnesemia; H40.9 Unspecified glaucoma; I50.33 Acute on chronic diastolic (congestive) heart failure; I13.0 Hypertensive heart and chronic kidney disease with heart failure and stage 1 through stage 4 chronic kidney disease, or unspecified chronic kidney disease; N18.30 Chronic kidney disease, stage 3 unspecified; I25.2 Old myocardial infarction; I25.10 Atherosclerotic heart disease of native coronary artery without angina pectoris; M10.9 Gout, unspecified; Z79.82 Long term (current) use of aspirin; M35.3 Polymyalgia rheumatica; F03.90 Unspecified dementia, unspecified severity, without behavioral disturbance, psychotic disturbance, mood disturbance, and anxiety; D64.9 Anemia, unspecified; I48.19 Other persistent atrial fibrillation; Z79.899 Other long term (current) drug therapy; M19.90 Unspecified osteoarthritis, unspecified site

== ENCOUNTER 2023-12-17 20:17 | Inpatient (IN) ==
--- OUTSIDE RECORDS SUMMARY | 2023-12-17 20:22 | External Medical Summary ---
Author Name Unknown Address Unknown Organization [id number][facility] [place] [address] [place] [id number] Laboratory Report Ordering Provider Test Date Status BETTY CALDERON 12/13/2023 15:30:22 Final Observation Date Value Abnormality Reference (Units ) Status BUN 12/13/2023 15:30:22 34 Above high normal 6-20 (mg/dL) Final Creatinine 12/13/2023 15:30:22 1.4 Above high normal 0.5-1.0 (mg/dL) Final Glomerular filtration rate/1.73 sq M.predicted [Volume Rate/Area] in Serum, Plasma or Blood by Creatinine-based formula (CKD-EPI) 12/13/2023 15:30:22 36 Below low normal >=60 (mL/min) Final eGFR is calculated based on the CKD-EPI 2020 equation Sodium 12/13/2023 15:30:22 140 135-146 (m mol/L) Final Potassium 12/13/2023 15:30:22 4.0 3.5-5.1 (m mol/L) Final Cl 12/13/2023 15:30:22 98 98-107 (mm ol/L) Final CO2 12/13/2023 15:30:22 31 22-32 (mmo l/L) Final Anion gap 12/13/2023 15:30:22 11 7-15 (mmol /L) Final Glucose 12/13/2023 15:30:22 125 Above high normal 70 -120 (mg/dL) Final Calcium 12/13/2023 15:30:22 9.7 8.4-10.2 ( mg/dL) Final Performing Location [facility] [place] [address] [place] [id number]
--- OUTSIDE RECORDS SUMMARY | 2023-12-17 20:22 | External Medical Summary | Summary of Care ---
Author Name Unknown Organization [facility] Address [address] [place] [address] Phone [phone] Care Team Providers Care Materials Planning Analyst Name Role Phone EsaBrayan romero Primary Care Provider Reason for Visit * Reason Comments Follow Up Encounter Details Date Type Department Care Team (Late st Contact Info) Description 12/13/2023 3:00 PM EDT Office Visit Cardiology, [facility] [address] [place] [address] Alexandra Ortiz CRNP [address] [place] [id number] Chronic heart failure with preserved ejection fraction (HCC)* Allergies Active Allergy Reactions Criticality Noted Date Comments Allopurinol Rash 12/23/2009 Cephalosporins 03/10/2019 Unknown Pomfdirk-Zdefofpof-Yjnqwtzyrh 2018 Swelling, redness Omeprazole Rash High 07/30/2017 documented as of this encounter (statuses as of 12/13/2023) Medications Medication Sig Dispensed Refills Start Date End Date Status ASPIRIN 81 MG PO TABS Take 1 Tablet by mouth in the morning. Active amoxicillin (AMOXIL) 500 MG Capsule 5 05/01/2016 Active acetaminophen (TYLENOL) 500 MG Tablet Take 1 Tablet by mouth every 6 hours as needed for Pain. Active AUG BETAMETHASONE DIPROPIONATE (DIPROLENE AF) 0.05 % creamIndications:De rmatitis Apply topically to affected area 2 times a day. To affected area. Back and buttocks 50 g 1 05/06/2018 Active Cholecalciferol 1000 units TBDP Take 1,000 Units by mouth daily. 06/11/2018 Active ferrous sulfate (FEOSOL) 325 (65 FE) MG Tablet Take 1 Tablet by mouth in the morning and 1 Tablet at noon and 1 Tablet before bedtime. Active Bisacodyl 10 MG Rectal Suppository Administer 1 Suppository into the rectum. Daily as needed Active fexofenadine (CHANDRIKA) 180 MG Tablet Take 1 Tablet by mouth in the morning. Active hydrocortisone 1 % cream Apply topically to affected area. Apply to affected area as needed Active milk of magnesia (MOM) 400 MG/5ML suspension Take by mouth daily as needed for Constipation. 30 ml daily as needed Active Sennosides (SENNA) 8.6 MG Tablet Take 1 Tablet by mouth. Daily if needed Active omeprazole (PRILOSEC) 20 MG CPDR Take 1 Capsule by mouth in the morning. Active nitroglycerin (NITROSTAT) 0.4 MG SUBL 1 Tablet. As needed 10/01/2019 Active atorvaSTATin (LIPITOR) 40 MG Tablet Take 1 Tablet by mouth at bedtime. 10/01/2019 Active Docosanol 10 % External Cream Apply topically to affected area. Active Psyllium 43 % Oral Powder Take by mouth. Active Metoprolol Succinate ER 50 MG Oral Tablet Extended Release 24 Hour (toPROL XL) Take 1.5 Tablets by mouth in the morning. 1 daily. 12/19/2022 Active Isosorbide Mononitrate ER 30 MG Oral Tablet Extended Release 24 Hour (Imdur) 07/02/2023 Active Rosemarie Protect Moisture Barrier 12 % External Cream (Zinc Oxide) Apply topically to affected area. Apply to affected area Active Docusate Sodium 100 MG Oral Capsule (Colace) Take 1 Capsule by mouth 2 times a day as needed for Constipation. Active diphenhydrAMINE HCl 25 MG Oral Capsule (Benadryl) Take 1 Capsule by mouth at bedtime as needed for Other (Allergies). Active B-12 1000 MCG Oral Capsule Take 1 Capsule by mouth in the morning. Active Loperamide HCl 2 MG Oral Tablet (Immodium (A-D)) Take 2 Tablets by mouth 3 times a day as needed for Diarrhea. 08/04/2022 Active Trolamine Salicylate 10 % External Cream (Mobisyl) 4 times a day. 08/04/2022 Active Systane Hydration PF 0.4-0.3 % Ophthalmic Solution (Polyethyl Glyc-Propyl Glyc PF) Instill into eye. Active Torsemide 10 MG Oral Tablet (Demadex) Take 1 Tablet by mouth in the morning. 12/12/2023 Active Furosemide 40 MG Oral Tablet (Lasix) Take 1 Tablet by mouth in the morning. 10/15/2023 Discontinued documented as of this encounter (statuses as of 12/13/2023) Active Problems Problem Noted Date Diagnosed Date Primary osteoarthritis of left knee 07/04/2023 Coronary artery disease invo lving [place] coronary artery of [place] heart without angina pectoris 03/23/2020 Status post [...] as of this encounter (statuses as of 12/13/2023) Resolved Problems Problem Noted Date Diagnosed Date Resolved Date Hyponatremia 03/04/2014 12/24/2015 Injury of leg, left, superficial 11/30/2011 08/19/2012 Obesity, Class II, BMI 35-39 .9, isolated (see actual BMI) 01/03/2010 08/19/2012 Overview: Per Obesity Protocol, #19 Dyslipidemia, goal to be determined 07/01/2009 10/10/2012 Overview: Per Lipid Taxonomy. 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 Cardiology Outpatient Visit 12/13/2023 Primary Equipment Application Specialist: Dr. Lynne Past medical history: Aortic valve stenosis status post bioprosthetic AVR (21 mm vega Faulkner pericardial valve), 10/03/2007 Coronary artery disease/NSTEMI, cardiac catheterization 10/24/2019 with findings of a 99% thrombotic occlusion of the proximal LAD, subtotal chronic ostial occlusion of RCA with distal right coronary artery filling retrograde from the left to right collaterals, s/p successful PCI/SOULEYMANE to the proximal to mid LAD. Persistent atrial fibrillation, initially diagnosed, 08/18/2023 at [facility]. Anticoagulation deferred due to upper extremity hematoma while admitted. Hypertension CKD stage 3 Dyslipidemia Polymyalgia rheumatica with chronic anemia Dementia HPI 88-year-old female presenting to the cardiology office today in close follow-up. Was last evaluated by Luz Taylor PA-C approximately 6 weeks ago. Admitted to [facility] in September of 2023 due to acute on chronic diastolic CHF. Symptom improvement with IV diuresis. She also underwent a left-sided thoracentesis with small left apical pneumo that resolved conservatively. During hospitalization, Afib rates were mildly elevated and Toprol all was increased to 75 mg daily. On discharge, furosemide was increased to 40 mg daily. At her last appointment she was feeling well. Blood work was stable. Furosemide was continued at 40 mg daily. Had a repeat admission on 11/24/2023 to 11/27/2023 for acute on chronic CHF. Patient was again diuresed with IV furosemide and transitioned to torsemide 20 mg daily at discharge. Today the patient presents with family per her usual routine. From a cardiac standpoint she is feeling well. Denies any exertional chest pain. Does have some mild dyspnea with exertion however this has been very stable. She ambulates with a wheeled walker. No palpitations. Denies lightheadedness ordizziness. No orthopnea or PND. No lower extremity edema. Wears compression socks daily. Weight is stable. No fever, chills, cough, hematochezia, melena, or hemoptysis. Patient is compliant with all medications, and offers no side effects. Patient currently resides [facility]. Per updated med list she is only taking torsemide 10 mg daily. Current Outpatient Medications Medication Sig Dispense Refill [...] at noon and 1 Tablet before bedtime. fexofenadine (CHANDRIKA) 180 MG Tablet Take 1 Tablet by mouth in the morning. milk of magnesia (MOM) 400 MG/5ML suspension [...] Take 1 Tablet by mouth at bedtime. Psyllium 43 % Oral Powder Take by mouth. Metoprolol Succinate ER 50 MG Oral Tablet Extended Release 24 Hour (toPROL XL) Take 1.5 Tablets by mouth in the morning. 1 daily. Isosorbide Mononitrate ER 30 MG Oral Tablet Extended Release 24 Hour (Imdur) Rosemarie Protect Moisture Barrier 12 % External Cream (Zinc Oxide) Apply topically to affected area. Apply to affected area Docusate Sodium 100 MG Oral Capsule (Colace) Take 1 Capsule by mouth 2 times a day as needed for Constipation. diphenhydrAMINE HCl 25 MG Oral Capsule (Benadryl) Take 1 Capsule by mouth at bedtime as needed for Other (Allergies). B-12 1000 MCG Oral Capsule Take 1 Capsule by mouth in the morning. Loperamide HCl 2 MG Oral Tablet (Immodium (A-D)) Take 2 Tablets by mouth 3 times a day as needed for Diarrhea. Trolamine Salicylate 10 % External Cream (Mobisyl) 4 times a day. Systane Hydration PF 0.4-0.3 % Ophthalmic Solution (Polyethyl Glyc-Propyl Glyc PF) Instill into eye. Torsemide 10 MG Oral Tablet (Demadex) Take 1 Tablet by mouth in the morning. Bisacodyl 10 MG Rectal Suppository Administer 1 Suppository into the rectum. Daily as needed (Patient not taking: Reported on 11/02/2023) hydrocortisone 1 % cream Apply topically to affected area. Apply to affected area as needed (Patient not taking: Reported on 11/02/2023) Docosanol 10 % External Cream Apply topically to affected area. No current facility-administered medications for this visit. [...] breast 06/10/09 stable calcifcations, benign, repeat in 12mt Supraventricular aortic stenosis Past Surgical History: Procedure [...] performed by Elsa Caraballo DO at ENDOSCOPY [facility] EGD, FLEXIBLE, DIAGNOSTIC 07/01/2015 HH, otherwise normal/ESOPHAGOGASTRODUODENOSCOPY (EGD), FLEXIBLE, TRANSORAL, DIAGNOSTIC performed byElsa Caraballo DO at ENDOSCOPY [facility] EGD, FLEXIBLE, DIAGNOSTIC 07/06/2017 [facility] EGD, FLEXIBLE, DIAGNOSTIC 08/01/2018 hiatal hernia/[facility] LIGATE/DIVID & STRIP GSV & LSV 1956 right LIGATE/DIVID & STRIP GSV & LSV [address] Abdalla REPLACEMENT AORTIC VALVE, BYPASS WITH PROSTHETIC VALVE 10/03/07 REPLACEMENT AORTIC VALVE performed by VONNIE MARR at OR [facility] TOTAL HYSTERECTOMY Social History Tobacco Use Smoking status: Former Current packs/day: 0.00 Average packs/day: 1 pack/day for 35.0 years (35.0 ttl pk-yrs) Types: Cigarettes Start date: 02/18/1957 Quit date: 02/19/1992 Years since quittin.8 Smokeless tobacco: Never Tobacco comments: quit 1992 Substance Use Topics Alcohol use: No Comment: history of alcohol use. None for the past twenty years. Drug use: No Review of patient's allergies indicates: Allergen Reactions Prilosec [Omeprazole] Rash Allopurinol Rash Cephalosporins Unknown Vqarkpzj-Cmifogedm-Vezsamlwnk Swelling, redness Review of Systems: See HPI for pertinent positives. All others negative, other than those noted in HPI. Physical Exam: BP 108/62 | Pulse 84 | Resp 18 | Wt 61.2 kg (135 lb) | BMI 20.83 kg/m | BSA 1.71 m General: No acute distress. A+Ox3. HEENT: [...] Normal. Lab data/imaging study review: Echo at [facility] 08/18/2023 Impression/Plan: This is an 88 year old female who is being evaluated in the cardiology office for ongoing care/riskmanagement for the below diagnoses. 1. Chronic heart failure with preserved ejection fraction (HCC) -Chronic HFpEF, NYHA class 2-3 -Euvolemic on exam. 1. Continue Torsemide 10 mg daily--update BMP and Mag following today's appointment 2. Persistent atrial fibrillation (HCC) -Persistent atrial fibrillation, initially diagnosed, 08/18/2023 at [facility]. -EKG showing atrial fibrillation, rates 85 beats per minute. Asymptomatic. Continue metoprolol succinate 75 mg daily Anticoagulation deferred due to history of upper extremity hematoma 3. Coronary artery disease involving [place] coronary artery of [place] heart without angina pectoris 4. Status post [...] status post bioprosthetic AVR (21 mm vega Faulkner pericardial valve), 10/03/2007 -Stable gradients on inpatient echo 07/2023 1. Continue aspirin 81 mg daily 2. Antibiotics needed for all dental work 6. HTN, goal below 140/90 Well controlled. No medication changes needed at this time. 7. Dyslipidemia, goal LDL below 70 1. Continue atorvastatin 40 mg daily The patient agrees to the above plan and will call with additional questions or concerns. ER with all emergencies advised. Follow-up: Return in about 3 months (around 03/14/2024). | Check-out note: Labs today. I spent a total of 40 minutes on the date of service in preparation, delivery, and documentation ofthe care provided to Batsheva Dumas excluding any time spent in the performance of separately billed services. WILLY Stephen [facility], Department of Cardiology This chart was completed in part utilizing [employer] Speech Voice Recognition Software. Grammatical errors, random [...] documented in this encounter Nursing Notes * Joaquina Spann LPN - 12/13/2023 3:04 PM EDT Examination Room: 4 Name: Batsheva Dumas Date of : 1935 Reason for Visit: Follow up Problems/Concerns: Some SOB with walking Interim Hosp(s): denies Chest Pain/SOB: denies MyChart Discussed: N/A Patient was instructed to not get up on the exam table until directed and assisted by their provider; patient is to remain seated in the chair/ wheelchair/ exam table for fall prevention and safety reasons. Patient is aware staff will assist stepping down off exam table with personnel. documented in this encounter Plan of Treatment Upcoming Encounters Date Type Department Care Team (Late st Contact Info) Description 01/22/2024 2:30 PM EDT Office Visit Rheumatology [place] [id number] [facility] [place] [address] Oskar Rodgers CRNP [address] [place] [address] [place] [address] 06/24/2024 10:00 AM EST Office Visit Cardiology, [facility] [address] [place] [address] Alexandra Ortiz CRNP [address] [place] [address] Pending Results Name Type Priority Associated Diagnoses Date /Time BASIC METABOLIC PANEL Lab Routine Chronic heart failure with preserved ejection fraction (HCC) 12/13/2023 3:30 PM EDT MAGNESIUM Lab Routine Chronic heart failure with preserved ejection fraction (HCC) 12/13/2023 3:30 PM EDT Scheduled Orders Name Type Priority Associated Diagnoses Orde r Schedule BASIC METABOLIC PANEL Lab Routine Chronic heart failure with preserved ejection fraction (HCC) Expected: 12/13/2023, Expires: 12/12/2024 MAGNESIUM Lab Routine Chronic heart failure with preserved ejection fraction (HCC) Expected: 12/13/2023, Expires: 12/12/2024 Health Maintenance Due Date Last Done Comments Zoster Vaccines (2 of 3) 11/19/2008 09/24/2008 DTaP,Tdap,and Td Vaccines (1 - Tdap) 11/19/2011 11/18/2011, 02/03/2010 Albumin/Creatinine Ratio 08/11/2017 017, 08/25/2015, 02/08/2015, Additional history exists CKD PHOS USE SMARTSET 15680 02/13/201801/21, 08/11/2016, 08/25/2015, Additional history exists Depression Screening 12/20/2018 12/20/2017 COVID-19 Vaccine ( season) 2023 06/10/2021, 09/13/2020, 08/16/2020 DXA Scan 03/15/2024 03/15/2022, 06/0 02/2020, 10/09/2017, Additional history exists CKD HGB USE SMARTSET 06429 09/19/2024, 12/20/2017, 10/26/2017, Additional history exists Pneumococcal Vaccine: 65+ Years Completed 05/21/2015, 12/09/2008, 06/10/2002 Influenza Vaccine (FLU shot) Completed , 05/04/2021, 04/26/2018, Additional history exists VITAMIN D LEVEL ONCE IN A LIFETIME-USE SMARTSET# [id number] Completed 09/20/2023, 01/01/2023, 08/03/2021, Additional history exists [...] this encounter Medical Devices Implanted Type Area Maintenance Engineer Oil Field Device Identifier Shelf Expiration Date Model / Serial / Lot Valve Ce Aortic 21mm [id number] - [id number] Implanted:Qty : 1 on 10/03/2007 at OR [facility] [place] Tissue - Non Human N/A: Heart Heart [employer] 03/23/2009 3000TFX-[id number] 1 / [id number] / documented as of this encounter Visit Diagnoses Diagnosis Chronic heart failure with preserved ejection fraction (HCC)- Primary documented in this encounter Advance Directives * Full Code (Latest Code Status on File) Date Activated Date Inactivated Comments 10/03/2007 4:11 PM 10/17/2007 12:14 AM Care Teams Materials Planning Analyst Relationship Specialty Start Date End Date Brayan Gayle DO [address] [facility] [place] [address] PCP - General 09/17/18 documented as of this encounter"
--- OUTSIDE RECORDS SUMMARY | 2023-12-17 20:22 | External Medical Summary | Summary of Care ---
Author Name Unknown Organization [facility] Address [address] [place] [address] Phone [phone] Care Team Providers Care Multi Share Program Coordinator Name Role Phone EsaBrayan romero Primary Care Provider Reason for Visit * Reason Comments Outpatient Testing Encounter Details Date Type Department Care Team (Late st Contact Info) Description 12/13/2023 3:40 PM EDT Laboratory Laboratory, [facility] [address] [place] [phone] [facility] [address] [place] [address] Chronic heart failure with preserved ejection fraction (HCC) Allergies Active Allergy Reactions Criticality Noted Date Comments Allopurinol Rash 12/23/2009 Cephalosporins 03/10/2019 Unknown Quhrxuek-Ywkojhgii-Qkoveelahg 2018 Swelling, redness Omeprazole Rash High 07/30/2017 [...] MG SUBL 1 Tablet. As needed 10/01/2019 Activ e atorvaSTATin (LIPITOR) 40 MG [...] by mouth in the morning. 12/12/2023 Active documented as of this encounter (statuses as of 12/13/2023) Active Problems Problem Noted Date Diagnosed Date Primary osteoarthritis of left knee 07/04/2023 Coronary artery disease invo lving [place] coronary artery of [place] heart without angina pectoris 03/23/2020 Status post [...] Taxonomy. 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 10/18/2007 08/18/2009 shelter current use of ant icoagulant therapy 10/10/2007 [...] 01/22/2024 2:30 PM EDT Office Visit Rheumatology [place] [id number] [place] [address] Oskar Rodgers CRNP [facility] [place] [address] 06/24/2024 10:00 AM EST Office Visit Cardiology, [facility] [place] [address] Alexandra Ortiz CRNP [address] [facility] [place] [address] Pending Results Name Type Priority Associated Diagnoses Date /Time BASIC METABOLIC PANEL Lab Routine Chronic heart failure with preserved ejection fraction (HCC) 12/13/2023 3:30 PM EDT MAGNESIUM Lab Routine Chronic heart failure with preserved ejection fraction (HCC) 12/13/2023 3:30 PM EDT Health Maintenance Due Date Last Done Comments Zoster Vaccines (2 of 3) 11/19/2008 09/24/2008 DTaP,Tdap,and Td Vaccines (1 - Tdap) 11/19/2011 11/18/2011, 02/03/2010 Albumin/Creatinine Ratio 08/11/2017 017, 08/25/2015, 02/08/2015, Additional history exists CKD PHOS USE SMARTSET 15997 02/13/201801/21, 08/11/2016, 08/25/2015, Additional history exists Depression Screening 12/20/2018 12/20/2017 COVID-19 Vaccine ( season) 2023 06/10/2021, 09/13/2020, 08/16/2020 DXA Scan 03/15/2024 03/15/2022, 06/0 02/2020, 10/09/2017, Additional history exists CKD HGB USE SMARTSET 28770 09/19/2024, 12/20/2017, 10/26/2017, Additional history exists Pneumococcal Vaccine: 65+ Years Completed 05/21/2015, 12/09/2008, 06/10/2002 Influenza Vaccine (FLU shot) Completed , 05/04/2021, 04/26/2018, Additional history exists VITAMIN D LEVEL ONCE IN A LIFETIME-USE SMARTSET# [id number] Completed 09/20/2023, 01/01/2023, 08/03/2021, Additional history exists [...] this encounter Medical Devices Implanted Type Area Administrative Operations Coordinator Device Identifier Shelf Expiration Date Model / Serial / Lot Valve Ce Aortic 21mm [id number] - [id number] Implanted:Qty : 1 on 10/03/2007 at OR [facility] [place] Tissue - Non Human N/A: Heart [employer] 03/23/2009 3000TFX-[id number] / documented as of this encounter Visit Diagnoses Diagnosis Chronic heart failure with preserved ejection fraction (HCC) documented in this encounter Advance Directives * Full Code (Latest Code Status on File) Date Activated Date Inactivated Comments 10/03/2007 4:11 PM 10/17/2007 12:14 AM Care Teams Multi Share Program Coordinator Relationship Specialty Start Date End Date Brayan Gayle DO [facility] [place] [address] PCP - General 09/17/18 documented as of this encounter
--- OUTSIDE RECORDS SUMMARY | 2023-12-17 20:22 | External Medical Summary | Summary of Care ---
Author Name Unknown Organization [facility] Address [address] [place] [address] Phone [phone] Care Team Providers Care Saw Handle Assembler Name Role Phone EsaBrayan romero Primary Care Provider Reason for Visit * Reason Onset Date Comments Test Results 12/14/2023 Encounter Details Date Type Department Care Team (Late st Contact Info) Description 12/14/2023 Telephone Cardiology, [facility] [address] [place] [address] Alexandra Ortiz CRNP [address] [place] [address] Test Results Allergies Active Allergy Reactions Criticality Noted Date Comments Allopurinol Rash 12/23/2009 Cephalosporins 03/10/2019 Unknown Yimkzwjg-Jffcmuzey-Kzqclilvyw 2018 Swelling, redness Omeprazole Rash High 07/30/2017 documented as of this encounter (statuses as of 12/14/2023) Medications Medication Sig Dispensed Refills Start Date [...] as of this encounter (statuses as of 12/14/2023) Active Problems Problem Noted Date Diagnosed Date Primary osteoarthritis of left knee 07/04/2023 Coronary artery disease invo lving [place] coronary artery of [place] heart without angina pectoris 03/23/2020 Status post insertion of drug eluting coronary a rtery stent 03/23/2020 Dyslipidemia, goal LDL below 70 03/23/2020 Bullous pemphigoid 10/05/2018 S/P right hip fracture 06/09/2017 History of nonmelanoma skin cancer 05/02/2017 Overview: BCC - neck 2016 HTN, goal below 140/90 03/16/2014 Senile osteoporosis [...] as of this encounter (statuses as of 12/14/2023) Resolved Problems Problem Noted Date Diagnosed Date Resolved Date Hyponatremia 03/04/2014 12/24/2015 Injury of leg, left, superficial 11/30/2011 08/19/2012 Obesity, Class II, BMI 35-39 .9, isolated (see actual BMI) 01/03/2010 08/19/2012 Overview: Per Obesity Protocol, #19 Dyslipidemia, goal to be determined 07/01/2009 10/10/2012 Overview: Per Lipid Taxonomy. 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 Faxed to [phone] ----- Message from Alexandra Ortiz sent at 12/14/2023 12:46 PM EDT ----- Mild renal dysfunction. Creatinine has ranged between 1.1 and 1.3 in the past. Her follow-up appointment yesterday she appeared compensated from a volume standpoint. Please encouraged adequate hydration at home and repeat a BMP in 2 weeks. No medication changes at this time. documented in this encounter Plan of Treatment Upcoming Encounters Date Type Department Care Team (Late st Contact Info) Description 01/22/2024 2:30 PM EDT Office Visit Rheumatology [facility] [address] [place] [address] Oskar Rodgers CRNP [address] [place] [address] 06/24/2024 10:00 AM EST Office Visit Cardiology, [facility] [address] [place] [address] Alexandra Ortiz CRNP [address] [place] [address] Scheduled Orders Name Type Priority Associated Diagnoses Orde r Schedule BASIC METABOLIC PANEL Lab Routine HTN, goal below 140/90 Chronic heart failure with preserved ejection fraction (HCC) Persistent atrial fibrillation (HCC) Expected: 12/28/2023 (Approximate), Expires: 12/13/2024 Health Maintenance Due Date Last Done Comments Zoster Vaccines (2 of 3) 11/19/2008 09/24/2008 DTaP,Tdap,and Td Vaccines (1 - Tdap) 11/19/2011 11/18/2011, 02/03/2010 Albumin/Creatinine Ratio 08/11/2017 017, 08/25/2015, 02/08/2015, Additional history exists CKD PHOS USE SMARTSET 19592 02/13/201801/21, 08/11/2016, 08/25/2015, Additional history exists Depression Screening 12/20/2018 12/20/2017 COVID-19 Vaccine ( season) 2023 06/10/2021, 09/13/2020, 08/16/2020 DXA Scan 03/15/2024 03/15/2022, 06/0 02/2020, 10/09/2017, Additional history exists CKD HGB USE SMARTSET 60242 09/19/2024, 12/20/2017, 10/26/2017, Additional history exists Pneumococcal Vaccine: 65+ Years Completed 05/21/2015, 12/09/2008, 06/10/2002 Influenza Vaccine (FLU shot) Completed , 05/04/2021, 04/26/2018, Additional history exists VITAMIN D LEVEL ONCE IN A LIFETIME-USE SMARTSET# [id number] Completed 09/20/2023, 01/01/2023, 08/03/2021, Additional history exists [...] this encounter Medical Devices Implanted Type Area Valve Mechanic Device Identifier Shelf Expiration Date Model / Serial / Lot Valve Ce Aortic 21mm [id number] - [id number] Implanted:Qty : 1 on 10/03/2007 [place] [facility] [place] - Non Human N/A: [employer] 03/23/2009 [id number] / [id number] / documented as of this encounter Visit Diagnoses Diagnosis Persistent atrial fibrillation (HCC)- Primary Atrial fibrillation HTN, goal below 140/90 Unspecified essential hypertension Chronic heart failure with preserved ejection fraction (HCC) documented in this encounter Advance Directives * Full Code (Latest Code Status on File) Date Activated Date Inactivated Comments 10/03/2007 4:11 PM 10/17/2007 12:14 AM Care Teams Saw Handle Assembler Relationship Specialty Start Date End Date Brayan Gayle DO [address] [facility] [place] [address] PCP - General 09/17/18 documented as of this encounter
--- OUTSIDE RECORDS SUMMARY | 2023-12-17 20:22 | External Medical Summary ---
Author Name Unknown Address Unknown Organization K01:[facility] [address] [facility] [address] Laboratory Report Ordering Provider Test Date Status BETTY CALDERON 12/13/2023 15:30:22 Final Observation Date Value Abnormality Reference (Units ) Status Magnesium 12/13/2023 15:30:22 1.8 1.5-2.6 (m g/dL) Final Performing Location [facility] [address] [facility] [address]
--- NOTE | 2023-12-17 20:32 | Emergency Department Note ---
Impression & Plan Syncope and collapse, Non-ST elevation MO (NSTEMI), Hypomagnesemia, Elevated brain natriuretic peptide (BNP) level, Fall from standing, Laceration of scalp ED Provider Note HISTORY OF PRESENT ILLNESS: Patient is an 88-year-old female presenting after syncopal episode. Patient reports that she was standing at her sink earlier this morning when she felt lightheaded and then fell to the ground, striking the left side of her head. She lives at [facility] and states that she was not on the ground long before someone came to get her. She is unclear of the events of the rest of the day and why she presents at 2030 at night. She denies any headache or changes in vision. Denies any chest pain or shortness of breath prior to the fall. Reports she just got lightheaded. She is on a baby aspirin daily. Has any numbness or tingling in her extremities. ROS: as above PHYSICAL EXAM: Constitutional: Patient appears in no acute distress. HENT: Head: Normocephalic. 2 cm laceration to the left parietal region of the scalp. Eyes: EOMI, PERRL Mouth/Throat: Mucous membranes moist. Neck: Trachea midline. Neck supple. No midline cervical spine tenderness to palpation. Cardiovascular: Irregular rhythm. No murmurs, rubs or gallops. Intact distal pulses. Pulmonary/Chest: No respiratory distress. Breath sounds clear and equal bilaterally. No wheezes or rales. No chest wall tenderness to palpation. Abdominal: Abdomen soft, no tenderness, rebound or guarding. Musculoskeletal: No edema, tenderness or deformity noted. Skin: Warm and dry. No rash, erythema, pallor or cyanosis Psychiatric: Appropriate mood and affect for situation. Neurological: Alert and keenly responsive. CN II-XII grossly intact, moving all extremities equally and fully. MDM: - Vitals signs showed hypertension - History obtained via patient. History as above. - Chronic conditions affecting care: CHF; CKD; HLD; HTN; persistent Afib - Differential diagnoses include, but are not limited to: ACS; pneumonia; pneumothorax; PE; dysrhythmia; electrolyte abnormality; intracranial hemorrhage - Order placed for continuous cardiac monitoring. At this time, monitor showed rate of 85 bpm with irregular rhythm, per my interpretation. - External medical records reviewed. Discharge summary dated 11/27/2023 was reviewed. Patient was admitted for CHF exacerbation. - EKG interpreted by myself showed atrial fibrillation. Rate 89 bpm. QT 376. No acute ischemic changes - Laboratory workup interpreted by myself showed normal WBC; anemia (Hgb 11.6); normal PT/INR; stable electrolytes; PENNIE (Cr 1.32 - baseline around 1.1); hypomagnesemia (Mg 1.6); normal liver function; elevated troponin (41.8); elevated BNP (496); normal lipase - CXR negative for pneumonia or pneumothorax, per my interpretation - CT head wo contrast negative for acute intracranial pathology - CT cervical spine wo contrast negative for acute injury - Given patient's elevated troponin and story of syncope, will admit to hospitalist service for further evaluation and management. - Discussion was had with correctional casework specialist about patient's case and need for admission - Hospitalist consulted for admission - Patient admitted to [facility] hospitalist service for further evaluation and management. ASSESSMENT AND PLAN: Diagnosis: syncope and collapse; scalp laceration; fall from standing; PENNIE; hypomagnesemia; NSTEMI; elevated BNP Plan: admit Past Med/Surg History Problem List (Updated 12/17/23 @ 23:00 by Joyce Ortiz MD) Laceration of scalp (Acute) Fall from standing (Acute) Elevated brain natriuretic peptide (BNP) level (Acute) Hypomagnesemia (Acute) Non-ST elevation MO (NSTEMI) (Acute) Syncope and collapse (Acute) Hypomagnesemia (Acute) MORGAN (dyspnea on exertion) (Acute) SOB (shortness of breath) (Acute) CHF (congestive heart failure) (Acute) Hypoxia (Acute) S/P aortic valve replacement with bioprosthetic valve Aortic valve stenosis CHF exacerbation Elevated brain natriuretic peptide (BNP) level Pressure ulcer, stage I, non-blanching erythema Acute dyspnea (Acute) CAD (coronary artery disease) Persistent atrial fibrillation Dementia Hypomagnesemia (Acute) Hypertension (Acute) Elevated troponin (Acute) Anemia CKD (chronic kidney disease), stage III Chronic diastolic heart failure NSTEMI (non-ST elevated myocardial infarction) 09/2019 Dyslipidemia Medical History Acute on chronic diastolic HF (heart failure) CHF exacerbation Chronic atrial fibrillation Pleural effusion Encephalopathy Hypoxia Dementia Chronic diastolic heart failure Dyslipidemia NSTEMI (non-ST elevated myocardial infarction) 09/2019 Chronic kidney disease, stage 3 (moderate) Gout Osteoarthritis Diverticular disease Cervical cancer 1997--sx History of colon polyps Aortic valve stenosis Schatzki's ring History of esophageal dilatation History of falling Polymyalgia rheumatica Hypertension Gout Status post closed fracture of right femur Surgical History S/P aortic valve replacement with bioprosthetic valve S/P AVR History of vein stripping x2 H/O total hysterectomy History of colonoscopy H/O cataract extraction History of cardiac cath 08/20/2007 History of breast biopsy History of cholecystectomy History of esophagogastroduodenoscopy (EGD) H/O aortic valve replacement 09/2007 @ [facility] [place] Family History Mother Rectal cancer Social History Smoking Status: Former smoker Tobacco Type: Cigarettes Second Hand Exposure: Yes; Do You Dip or Chew Tobacco: No; Hx Alcohol Use: No Hx Substance Use: No Preferred Language: Stateless Communication Ability: Effective Mangle Press Catcher Required: No Beliefs That Will Affect Care: None Current Living Situation: Personal Care Facility Current Living Situation Comment: [facility] current occupational status: retired Feels Safe at Home: Yes Assistive Devices: Walker Allergies Allergies Allergy/AdvReac Type Severity Reaction Status Date / Time allopurinol Allergy Unknown ON [place] Verified 08/18/23 11:23 [facility] Cephalosporins Allergy Unknown ON [place] Verified 08/18/23 11:23 [facility] gramicidin D [From Neocidin] Allergy Unknown Redness of Verified 08/18/23 11:23 Skin neomycin [From Neocidin] Allergy Unknown Redness of Verified 08/18/23 11:23 Skin polymyxin B [From Neocidin] Allergy Unknown Redness of Verified 08/18/23 11:23 Skin chocolate AdvReac Unknown Verified 08/18/23 11:28 Home Meds Home Medications Medication Instructions Recorded Confirmed aspirin 81 mg tablet,delayed 81 mg PO QAM 06/11/18 11/24/23 release (Lyly Low Dose Aspirin) acetaminophen 500 mg tablet 500 mg PO Q4H PRN Pain Scale 4-6 07/29/18 11/24/23 (Acetaminophen Extra Strength) ferrous sulfate 325 mg (65 mg 325 mg PO TID 07/29/18 11/24/23 iron) tablet aluminum-mag hydroxide-simethicone 10 - 20 ml PO QID PRN Heartburn 09/27/19 11/24/23 400 mg-400 mg-40 mg/5 mL oral susp (Antacid-Simethicone) dimethicone-zinc oxide topical 1 applic topical DAILY PRN Skin 09/27/19 11/24/23 cream (Rosemarie Protect Protection (dimethicone-zinc oxide) topical cream) fexofenadine 180 mg tablet 180 mg PO DAILY 09/27/19 11/24/23 sennosides 8.6 mg tablet 8.6 mg PO QAM Constipation 09/27/19 11/24/23 docosanol 10 % topical cream 1 applic topical UD PRN Cold Sores 08/04/22 11/24/23 (Abreva) omeprazole 20 mg capsule,delayed 20 mg PO DAILY 08/04/22 11/24/23 release peg 400-propylene glycol (PF) 0.4 1 drp OPB BID Dry Eyes 08/04/22 11/24/23 %-0.3 % eye drops in a dropperette (Systane (PF)) psyllium seed (sugar) oral powder 1 tbsp PO DAILY 08/04/22 11/24/23 (Metamucil Hinckley oral powder) cholecalciferol (vitamin D3) 50 50 mcg PO DAILY 08/18/23 11/24/23 mcg (2,000 unit) tablet (Vitamin D3) diphenhydramine HCl 25 mg capsule 25 mg PO HS PRN Allergies 08/18/23 11/24/23 (Benadryl) atorvastatin 40 mg tablet 40 mg PO DAILY 10/08/23 11/24/23 Aspercreme 10 % topical QID PRN Pain 11/24/23 11/24/23 cyanocobalamin (vitamin B-12) 500 1,000 mcg PO DAILY 11/24/23 11/24/23 mcg tablet loperamide 2 mg tablet 2 mg PO DAILY PRN Diarrhea 11/24/23 11/24/23 metoprolol succinate 50 mg 75 mg PO DAILY 11/24/23 11/24/23 tablet,extended release 24 hr nitroglycerin 0.4 mg sublingual 0.4 mg sublingual UD PRN Chest Pain 11/24/23 11/24/23 tablet (Nitrostat) phenyleph-shark liver [address] BID PRN Hemorrhoids 11/24/23 11/24/23 [id number] rectal cream Previous Rx's Medication Instructions Recorded isosorbide mononitrate 30 mg 30 mg PO QAM #30 tabs 10/27/19 tablet,extended release 24 hr docusate sodium 100 mg capsule 100 mg PO BID PRN Constipation #30 08/31/23 caps torsemide 20 mg tablet 20 mg PO QAM 30 days #30 tabs 11/27/23 Results & Data (ED) Vital Signs Vital Signs - 24 hr 12/17/23 20:24 12/17/23 20:37 12/17/23 20:44 Temperature 37.6 C H Temperature Source Oral Pulse Rate 86 73 83 Pulse Rate from SpO2 Sensor Respiratory Rate 17 21 Respiratory Effort / Characteristics Non-Labored Spontaneous Respiratory Depth Normal Blood Pressure 129/72 Blood Pressure Mean 91 Pulse Oximetry 95 94 Oxygen Delivery Method Room Air Room Air Sepsis Recent Fever Within 48 Hours No Sepsis New/Unexplained Change in Mental Status N/A Sepsis Action Taken by Nursing No Action Required 12/17/23 21:00 12/17/23 21:30 12/17/23 22:00 Temperature Temperature Source Pulse Rate 80 88 84 Pulse Rate from SpO2 Sensor 85 Respiratory Rate 22 17 20 Respiratory Effort / Characteristics Respiratory Depth Blood Pressure 131/80 157/98 H 144/91 H Blood Pressure Mean 97 117 108 Pulse Oximetry 94 96 95 Oxygen Delivery Method Room Air Room Air Room Air Sepsis Recent Fever Within 48 Hours Sepsis New/Unexplained Change in Mental Status Sepsis Action Taken by Nursing Laboratory Data 12/17/23 20:32 12/17/23 20:32 Lab Results 12/17/23 Range/Units 20:32 WBC 6.93 (4.8-10.8) K/ul RBC 3.54 L (4.20-5.40) M/uL Hgb 11.6 L (12.0-16.0) g/dl Hct 36.1 L (37.0-47.0) % MCV 102.0 H (80.0-100.0) fL MCH 32.8 (25.0-34.0) pg MCHC 32.1 (32.0-36.0) g/dL RDW Std Deviation 49.9 H (36.4-46.3) fL RDW Coeff of Jimmie 13.2 (11.5-14.5) % Plt Count 175 (130-400) K/uL MPV 10.6 (9.4-12.4) fL Immature Gran % (Auto) 0.3 % Neut % (Auto) 73.9 % Lymph % (Auto) 11.1 % Placer % (Auto) 8.8 % Eos % (Auto) 5.3 % Baso % (Auto) 0.6 % Neut # (Auto) 5.12 (1.40-6.50) K/uL Lymph # (Auto) 0.77 L (1.20-3.40) K/uL Placer # (Auto) 0.61 H (0.11-0.59) K/uL Eos # (Auto) 0.37 (0.00-0.50) K/uL Baso # (Auto) 0.04 (0.00-0.20) K/uL Immature Gran # (Auto) 0.02 (0.01-0.20) K/uL PT 11.4 (9.0-12.0) Seconds INR 1.1 (0.9-1.1) Sodium 139 (136-145) mmol/L Potassium 3.7 (3.5-5.1) mmol/L Chloride 100 (98-107) mmol/L Carbon Dioxide 33 H (21-32) mmol/L Anion Gap 6 (3-11) BUN 35 H (6-23) mg/dl Creatinine 1.32 H (0.6-1.2) mg/dl Est Cr Clr Drug Dosing 29.2 ml/min Est GFR ( Amer) 41.9 ml/min Est GFR (Non-Af Amer) 36.2 ml/min BUN/Creatinine Ratio 26.5 H (10-20) Glucose 112 H (70-99(Fasting)) mg/dl Calcium 9.8 (8.6-10.3) mg/dl Magnesium 1.6 L (1.7-2.4) mg/dl Total Bilirubin 1.2 H (0.2-1.0) mg/dl AST 22 (13-39) U/L ALT 23 (7-52) U/L Alkaline Phosphatase 96 (34-104) U/L Troponin I High Sens 41.8 H (0-14) pg/ml B-Natriuretic Peptide 496 H (0-100) pg/ml Total Protein 7.2 (6.0-8.3) gm/dl Albumin 4.0 (3.4-5.0) gm/dl Globulin 3.2 (2.5-4.0) gm/dl Albumin/Globulin Ratio 1.3 (0.9-2) Lipase 20 (11-82) U/L Administered Medications Discontinued Medications Magnesium Sulfate/Dextrose (Magnesium Sulfate / D5w) 1 gm in 100 mls @ 100 mls/hr IV NOW STA Stop: 12/17/23 22:28 Last Admin: 12/17/23 21:54 Dose: 100 mls/hr Documented By: KAYLEE Imaging Data Radiologist's Impression: Cervical Spine CT 12/17/23 20:30 Exam(s): CT C SPINE EXAM: CT Cervical Spine Without Intravenous Contrast CLINICAL HISTORY: Reason for exam: syncope; fall from standing. TECHNIQUE: Axial computed tomography images of the cervical spine without intravenous contrast. CTDI is 22 mGy and DLP is 397 mGy-cm. Automated exposure control was utilized for the study. A dose lowering technique was utilized adhering to the principles of ALARA. COMPARISON: No relevant prior studies available. FINDINGS: Bones are demineralized. Vertebral body heights are maintained. There is no fracture or subluxation. There is advanced bilateral facet degeneration associated with 3 millimeters anterolisthesis of C2 and 2 mm anterolisthesis of C3. There is degeneration of the atlantodental joint. There is multilevel disc degeneration, greatest at C4-C5, C5-C6, and C6-C7. Bulky anterior endplate osteophytes raise the possibility of diffuse idiopathic skeletal hyperostosis. There is advanced uncovertebral joint degeneration in the mid and lower cervical spine. Disc-osteophyte complex is mildly narrow the spinal canal and C4-C5 and C5-C6. There are varying degrees of bilateral foraminal narrowing. There is pleural-parenchymal scarring and paraseptal emphysema at the lung apices. Carotid calcifications are noted. There is no swelling of the prevertebral soft tissues. IMPRESSION: No acute osseous findings. Electronically signed by: Antonia Sung M.D. 12/17/23 21:[address] 12/17/23 20:30 Exam(s): CT HEAD Without Contrast EXAM: CT Head Without Intravenous Contrast CLINICAL HISTORY: Reason for exam: syncope; fall from standing. TECHNIQUE: Axial computed tomography images of the head/brain without intravenous contrast. CTDI is 55 mGy and DLP is 899 mGy-cm. Automated exposure control was utilized for the study. A dose lowering technique was utilized adhering to the principles of ALARA. COMPARISON: No relevant prior studies available. FINDINGS: Brain: Chronic lacunar infarct right thalamus. There is generalized parenchymal volume loss. Periventricular and deep cerebral white matter hypoattenuation most likely reflects chronic small vessel ischemic change. Fajardo-white matter differentiation is maintained. There is no hemorrhage, mass effect, parenchymal edema, or midline shift. Ventricles: Unremarkable. No hydrocephalus. Bones/joints: Unremarkable. No acute fracture. Soft tissues: Unremarkable. Vasculature: Intracranial atherosclerosis. Sinuses: Unremarkable as visualized. Mastoid air cells: Unremarkable as visualized. No mastoid effusion. Orbits: Bilateral lens replacements. IMPRESSION: No acute intracranial process. Electronically signed by: Antonia Sung M.D. 12/17/23 21:55 PM Discharge Plan Visit Data Chief Complaint: Fall Stated Complaint: fall with laceration to head; on thinners ED Provider: Joyce Ortiz Discharge Problem: Syncope and collapse, Non-ST elevation MO (NSTEMI), Hypomagnesemia, Elevated brain natriuretic peptide (BNP) level, Fall from standing, Laceration of scalp Forms Stand Alone Forms: My [facility] [employer] Prescriptions Prescriptions: No Action aspirin [Lyly Low Dose Aspirin] 81 mg Tablet,Delayed Release (Dr/Ec) 81 mg PO QAM acetaminophen [Acetaminophen Extra Strength] 500 mg Tablet 500 mg PO Q4H MDD 3 GRAMS/24 HOURS PRN (Reason: Pain Scale 4-6) ferrous sulfate 325 mg (65 mg iron) Tablet 325 mg PO TID sennosides 8.6 mg Tablet 8.6 mg PO QAM fexofenadine 180 mg Tablet 180 mg PO DAILY alum-mag hydroxide-simeth [Antacid-Simethicone] 400-400-40 mg/5 mL Suspension 10 - 20 ml PO QID PRN (Reason: Heartburn) Rosemarie Protect(dimethicone-zinc) Cream 1 applic TOPICAL DAILY PRN (Reason: Skin Protection) Rx Instructions: Apply topically to affected area as needed for skin protection. isosorbide mononitrate 30 mg Tablet Extended Release 24 Hr 30 mg PO QAM Qty: 30 0RF omeprazole 20 mg Capsule,Delayed Release(Dr/Ec) 20 mg PO DAILY Systane (PF) 0.4-0.3 % Dropperette 1 drp OPB BID docosanol [Abreva] 10 % Cream 1 applic TOPICAL UD PRN (Reason: Cold Sores) Rx Instructions: May keep at bedside for independent use. Metamucil Hinckley Powder 1 tbsp PO DAILY Rx Instructions: Mix 1 tablespoon in 6-8oz of fluid and drink by mouth once daily for fiber supplement. diphenhydramine HCl [Benadryl] 25 mg Capsule 25 mg PO HS PRN (Reason: Allergies) cholecalciferol (vitamin D3) [Vitamin D3] 50 mcg (2,000 unit) Tablet 50 mcg PO DAILY docusate sodium 100 mg Capsule 100 mg PO BID PRN (Reason: Constipation) Qty: 30 0RF atorvastatin 40 mg tablet 40 mg PO DAILY loperamide 2 mg Tablet 2 mg PO DAILY MDD 4 tablets in 24hrs PRN (Reason: Diarrhea) Rx Instructions: Take 2 tablets by mouth after first loose stool, then 1 tablet by mouth thereafter each loose stool. phenyleph-shark [id number] Cream [address] BID PRN (Reason: Hemorrhoids) Aspercreme 10 % topical QID PRN (Reason: Pain) cyanocobalamin (vitamin B-12) 500 mcg tablet 1,000 mcg PO DAILY nitroglycerin [Nitrostat] 0.4 mg tablet, sublingual 0.4 mg sublingual UD PRN (Reason: Chest Pain) Rx Instructions: Dissolve 1 tablet under tongue as needed, may repeat every 5 minutes x 3 doses. metoprolol succinate 50 mg tablet extended release 24 hr 75 mg PO DAILY Rx Instructions: Take 1 and 1/2 tablets po daily. torsemide 20 mg Tablet 20 mg PO QAM 30 Days Qty: 30 1RF Referrals Ref[facility]: [facility] [Primary Care Provider] -
[2023-12-17 21:08] LABS: Basophils # (auto) 0.04 K/uL (0.00-0.20); Basophils % (auto) 0.6 %; Eosinophils # (auto) 0.37 K/uL (0.00-0.50); Eosinophils % (auto) 5.3 %; Hematocrit (blood only) 36.1 % (37.0-47.0); Hemoglobin 11.6 g/dl (12.0-16.0); Immature Granulocytes # (auto) 0.02 K/uL (0.01-0.20); Immature Granulocytes % (auto) 0.3 %; Lymphocytes # (auto) 0.77 K/uL (1.20-3.40); Lymphocytes % (auto) 11.1 %; Mean Corpuscular Hemoglobin 32.8 pg (25.0-34.0); Mean Corpuscular Hgb Conc 32.1 g/dL (32.0-36.0); Mean Platelet Volume 10.6 fL (9.4-12.4); Monocytes # (auto) 0.61 K/uL (0.11-0.59); Monocytes % (auto) 8.8 %; Neutrophils # (auto) 5.12 K/uL (1.40-6.50); Neutrophils % (auto) 73.9 %; Platelet Count 175 K/uL (130-400); RDW Coefficient of Variation 13.2 % (11.5-14.5); RDW Standard Deviation 49.9 fL (36.4-46.3); Red Blood Count 3.54 M/uL (4.20-5.40); White Blood Count 6.93 K/ul (4.8-10.8)
[2023-12-17 21:23] LABS: Albumin Globulin Ratio 1.3 (0.9-2); BUN Creatinine Ratio 26.5 (10-20); Bilirubin,Total 1.2 mg/dl (0.2-1.0); Calcium 9.8 mg/dl (8.6-10.3); Creatinine Clr Calc Pharmacy 29.2 ml/min; Est GFR (African American) 41.9 ml/min; Est GFR (Non-African American) 36.2 ml/min; Globulin 3.2 gm/dl (2.5-4.0); Magnesium 1.6 mg/dl (1.7-2.4); Potassium 3.7 mmol/L (3.5-5.1); Total Protein 7.2 gm/dl (6.0-8.3)
[2023-12-17 21:29] LABS: Troponin I High Sensitivity 41.8 pg/ml (0-14)
[2023-12-17 21:36] LABS: INR 1.1 (0.9-1.1); Prothrombin Time 11.4 Seconds (9.0-12.0)
[2023-12-17] MEDS: MAGNESIUM SULFATE / D5W 1 GM/100 ML BAG IV STA (21:54)
--- NOTE | 2023-12-17 21:55 | CT Scan Report ---
Exam(s): CT HEAD Without Contrast EXAM: CT Head Without Intravenous Contrast CLINICAL HISTORY: Reason for exam: syncope; fall from standing. TECHNIQUE: Axial computed tomography images of the head/brain without intravenous contrast. CTDI is 55 mGy and DLP is 899 mGy-cm. Automated exposure control was utilized for the study. A dose lowering technique was utilized adhering to the principles of ALARA. COMPARISON: No relevant prior studies available. FINDINGS: Brain: Chronic lacunar infarct right thalamus. There is generalized parenchymal volume loss. Periventricular and deep cerebral white matter hypoattenuation most likely reflects chronic small vessel ischemic change. Fajardo-white matter differentiation is maintained. There is no hemorrhage, mass effect, parenchymal edema, or midline shift. Ventricles: Unremarkable. No hydrocephalus. Bones/joints: Unremarkable. No acute fracture. Soft tissues: Unremarkable. Vasculature: Intracranial atherosclerosis. Sinuses: Unremarkable as visualized. Mastoid air cells: Unremarkable as visualized. No mastoid effusion. Orbits: Bilateral lens replacements. IMPRESSION: No acute intracranial process. Electronically signed by: Antonia Sung M.D. 12/17/23 21:55 PM
--- NOTE | 2023-12-17 21:59 | CT Scan Report ---
Exam(s): CT C SPINE EXAM: CT Cervical Spine Without Intravenous Contrast CLINICAL HISTORY: Reason for exam: syncope; fall from standing. TECHNIQUE: Axial computed tomography images of the cervical spine without intravenous contrast. CTDI is 22 mGy and DLP is 397 mGy-cm. Automated exposure control was utilized for the study. A dose lowering technique was utilized adhering to the principles of ALARA. COMPARISON: No relevant prior studies available. FINDINGS: Bones are demineralized. Vertebral body heights are maintained. There is no fracture or subluxation. There is advanced bilateral facet degeneration associated with 3 millimeters anterolisthesis of C2 and 2 mm anterolisthesis of C3. There is degeneration of the atlantodental joint. There is multilevel disc degeneration, greatest at C4-C5, C5-C6, and C6-C7. Bulky anterior endplate osteophytes raise the possibility of diffuse idiopathic skeletal hyperostosis. There is advanced uncovertebral joint degeneration in the mid and lower cervical spine. Disc-osteophyte complex is mildly narrow the spinal canal and C4-C5 and C5-C6. There are varying degrees of bilateral foraminal narrowing. There is pleural-parenchymal scarring and paraseptal emphysema at the lung apices. Carotid calcifications are noted. There is no swelling of the prevertebral soft tissues. IMPRESSION: No acute osseous findings. Electronically signed by: Antnoia Sung M.D. 12/17/23 21:57 PM
--- NOTE | 2023-12-18 01:50 | History & Physical Report ---
Date of Service December 18, 2023 Assessment & Plan (1) Syncope and collapse: Plan: 88-year-old female with past medical history significant for gout, hyperlipidemia, hypertension, history of CAD s/p stent, CKD stage III, history of malignant neoplasm of corpus uteri, polymyalgia rheumatica, osteoporosis, glaucoma, bullous pemphigoid, aortic stenosis s/p bioprosthetic aortic valve replacement, Chronic diastolic CHF and history of pleural effusion with thoracocentesis who lives at [facility] comes with episode of syncope. Patient states she was in the kitchen when suddenly she feels dizzy and fell down on the side and hit her head. It happened so fast. She thinks she lost consciousness for seconds. When she woke up she was not confused as per patient. Currently alert and oriented x 3. She does not have her false teeth on now and having some difficulty talking but able to give her history. Has some mild headache. Denies any blurred vision. No runny nose. No sore throat. No cough. States appetite is okay. She is eating okay. Denies any chest pain or shortness of breath. No nausea. No abdominal pain. States normal bowel and bladder movements.. States ambulates with a walker. Currently hemodynamics are okay. Syncope and collapse laceration on the left side of scalp CT head and CT cervical spine okay mag 1.6 telemetry orthostatics echo consult cardiology in a.m. for further recommendations history of CAD s/p stent on aspirin, statin, Imdur, metoprolol succinate history of chronic diastolic CHF history of pleural effusions on torsemide and metoprolol succinate we will monitor history of CKD stage III presented with creatinine 1.3 will follow labs chronic anemia hemoglobin 11.6 monitor hyperlipidemia on statin history of persistent atrial fibrillation on metoprolol and aspirin anticoagulation previously deferred because of right approximate hematoma hypomagnesia will replace DVT prophylaxis SCDs for now disposition telemetry PT OT evaluation when stable full code per my discussion with the patient History of Present Illness Chief Complaint: syncope Primary Care Provider: [facility] 88-year-old female with past medical history significant for gout, hyperlipidemia, hypertension, history of CAD s/p stent, CKD stage III, history of malignant neoplasm of corpus uteri, polymyalgia rheumatica, osteoporosis, glaucoma, bullous pemphigoid, aortic stenosis s/p bioprosthetic aortic valve replacement, Chronic diastolic CHF and history of pleural effusion with [facility]acocentesis [facility] comes with episode of syncope. Patient states she was in the kitchen when suddenly she feels dizzy and fell down on the side and hit her head. It happened so fast. She thinks she lost consciousness for seconds. When she woke up she was not confused as per patient. Currently alert and oriented x 3. She does not have her false teeth on now and having some difficulty talking but able to give her history. Has some mild headache. Denies any blurred vision. No runny nose. No sore throat. No cough. States appetite is okay. She is eating okay. Denies any chest pain or shortness of breath. No nausea. No abdominal pain. States n ormal bowel and bladder movements.. States ambulates with a walker. Currently hemodynamics are okay. Past medical history. As mentioned above past surgical history. Biopsy of the breast. Cardiac cath. Colonoscopy. EGD. cholecystectomy. Bioprosthetic aortic valve replacement. Total hysterectomy. Social history. Lives alone. Quit smoking 1992. Smoked 1 pack a day for 35 years. No alcohol use. No drug use. Family history. Mother had rectum and nose cancer. Father had stroke. Allergies Allergy/AdvReac Type Severity Reaction Status Date / Time allopurinol Allergy Unknown ON [facility] Verified 12/17/23 23:30 [place] [facility] Cephalosporins Allergy Unknown ON [facility] Verified 12/17/23 23:30 [place] [facility] gramicidin D [From Neocidin] Allergy Unknown Redness of Verified 08/18/23 11:23 Skin neomycin [From Neocidin] Allergy Unknown Redness of Verified 08/18/23 11:23 Skin polymyxin B [From Neocidin] Allergy Unknown Redness of Verified 08/18/23 11:23 Skin chocolate AdvReac Unknown Unknown Verified 12/17/23 23:30 Home Medications Medication Instructions Recorded Confirmed Type aspirin 81 mg tablet,delayed 81 mg PO QAM 06/11/18 12/17/23 History release (Lyly Low Dose Aspirin) acetaminophen 500 mg tablet 500 mg PO Q4H PRN Pain Scale 4-6 07/29/18 12/17/23 History (Acetaminophen Extra Strength) ferrous sulfate 325 mg (65 mg 325 mg PO TID 07/29/18 12/17/23 History iron) tablet fexofenadine 180 mg tablet 180 mg PO DAILY 09/27/19 12/17/23 History sennosides 8.6 mg tablet 8.6 mg PO QAM Constipation 09/27/19 12/17/23 History isosorbide mononitrate 30 mg 30 mg PO QAM #30 tabs 10/27/19 12/17/23 Rx tablet,extended release 24 hr docosanol 10 % topical cream 1 applic topical UD PRN Cold Sores 08/04/22 12/17/23 History (Abreva) omeprazole 20 mg capsule,delayed 20 mg PO DAILY 08/04/22 12/17/23 History release peg 400-propylene glycol (PF) 0.4 1 drp OPB BID Dry Eyes 08/04/22 12/17/23 History %-0.3 % eye drops in a dropperette (Systane (PF)) psyllium seed (sugar) oral powder 1 tbsp PO DAILY 08/04/22 12/17/23 History (Metamucil [place] oral powder) cholecalciferol (vitamin D3) 50 50 mcg PO DAILY 08/18/23 12/17/23 History mcg (2,000 unit) tablet (Vitamin D3) diphenhydramine HCl 25 mg capsule 25 mg PO HS PRN Allergies 08/18/23 12/17/23 History (Benadryl) docusate sodium 100 mg capsule 100 mg PO BID PRN Constipation #30 08/31/23 12/17/23 Rx caps atorvastatin 40 mg tablet 40 mg PO DAILY 10/08/23 12/17/23 History cyanocobalamin (vitamin B-12) 500 1,000 mcg PO DAILY 11/24/23 12/17/23 History mcg tablet loperamide 2 mg tablet 2 mg PO UD PRN Diarrhea 11/24/23 12/17/23 History metoprolol succinate 50 mg 75 mg PO DAILY 11/24/23 12/17/23 History tablet,extended release 24 hr nitroglycerin 0.4 mg sublingual 0.4 mg sublingual UD PRN Chest Pain 11/24/23 12/17/23 History tablet (Nitrostat) torsemide 20 mg tablet 20 mg PO QAM 30 days #30 tabs 11/27/23 12/17/23 Rx aluminum-mag hydroxide-simethicone 10 ml PO QID PRN Heartburn 12/17/23 12/17/23 History 400 mg-400 mg-40 mg/5 mL oral susp amoxicillin 500 mg capsule 2,000 mg PO DAILY PRN infection 12/17/23 12/17/23 History prevention miconazole nitrate 2 % topical 1 applic topical UD PRN skin 12/17/23 12/17/23 History cream protection phenylephrine 0.25 %-pramoxine 1 1 applic ID BID PRN hemorrhoid 12/17/23 12/17/23 History %-glycerin-wh.petrolatum rectal inflammation cream (Preparation H Maximum Strength) trolamine salicylate 10 % topical 1 applic topical QID PRN Pain 12/17/23 12/17/23 History cream (Aspercreme) Past Med/Surg History Problem List (Updated 12/17/23 @ 23:00 by Joyce Ortiz MD) Laceration of scalp (Acute) Fall from standing (Acute) Elevated brain natriuretic peptide (BNP) level (Acute) Hypomagnesemia (Acute) Non-ST elevation MN (NSTEMI) (Acute) Syncope and collapse (Acute) Hypomagnesemia (Acute) MORGAN (dyspnea on exertion) (Acute) SOB (shortness of breath) (Acute) CHF (congestive heart failure) (Acute) Hypoxia (Acute) S/P aortic valve replacement with bioprosthetic valve Aortic valve stenosis CHF exacerbation Elevated brain natriuretic peptide (BNP) level Pressure ulcer, stage I, non-blanching erythema Acute dyspnea (Acute) CAD (coronary artery disease) Persistent atrial fibrillation Dementia Hypomagnesemia (Acute) Hypertension (Acute) Elevated troponin (Acute) Anemia CKD (chronic kidney disease), stage III Chronic diastolic heart failure NSTEMI (non-ST elevated myocardial infarction) 09/2019 Dyslipidemia Medical History Acute on chronic diastolic HF (heart failure) CHF exacerbation Chronic atrial fibrillation Pleural effusion Encephalopathy Hypoxia Dementia Chronic diastolic heart failure Dyslipidemia NSTEMI (non-ST elevated myocardial infarction) 09/2019 Chronic kidney disease, stage 3 (moderate) Gout Osteoarthritis Diverticular disease Cervical cancer 1997--sx History of colon polyps Aortic valve stenosis Schatzki's ring History of esophageal dilatation History of falling Polymyalgia rheumatica Hypertension Gout Status post closed fracture of right femur Surgical History S/P aortic valve replacement with bioprosthetic valve S/P AVR History of vein stripping x2 H/O total hysterectomy History of colonoscopy H/O cataract extraction History of cardiac cath 08/20/2007 History of breast biopsy History of cholecystectomy History of esophagogastroduodenoscopy (EGD) H/O aortic valve replacement 09/2007 @ [facility] Family History Mother Rectal cancer Social History Smoking Status: Former smoker Tobacco Type: Cigarettes Second Hand Exposure: Yes; Do You Dip or Chew Tobacco: No; Hx Alcohol Use: No Hx Substance Use: No Preferred Language: Israeli Communication Ability: Effective Resolution Agent Required: No Beliefs That Will Affect Care: None Current Living Situation: Personal Care Facility Current Living Situation Comment: [facility] current occupational status: retired Feels Safe at Home: Yes Assistive Devices: Walker Review of Systems Review of Systems: All systems reviewed & are unremarkable except as noted in HPI & below Physical Exam Physical Exam: General- adult Head- laceration on left side of scalp. Eyes- PERRL. ENT- oropharynx clear Neck- supple, no JVD, Lungs- clear to auscultation no wheezing or crackles. Heart- regular rhythm; no murmur, no gallop. Abdomen- normal bowel sounds, soft, nontender, no distension. Extremities- mild pretibial edema, no erythema seen Neuro- alert, oriented x 3; PERRL, no facial palsy; no dysarthria; motor 5/5 bilaterally; obeys simple commands. co ordination of movements normal. Skin- warm & dry Results & Data Results & Data Vital Signs (Past 12 Hours) Vital Signs Temp Pulse Resp BP Pulse Ox O2 Del Method 12/18/23 01:00 94 H 16 133/92 98 Room Air 12/18/23 00:33 88 12/18/23 00:00 96 H 18 143/96 H 98 Room Air 12/17/23 23:00 88 17 147/94 H 94 Room Air 12/17/23 22:30 90 16 132/84 94 Room Air 12/17/23 22:00 84 20 144/91 H 95 Room Air 12/17/23 21:30 88 17 157/98 H 96 Room Air 12/17/23 21:00 80 22 131/80 94 Room Air 12/17/23 20:44 83 12/17/23 20:37 73 21 94 Room Air 12/17/23 20:24 37.6 C H 86 17 129/72 95 Room Air Diagnostic Findings Laboratory Results WBC 6.93 K/ul (4.8-10.8) 12/17/23 20:32 RBC 3.54 M/uL (4.20-5.40) L 12/17/23 20:32 Hgb 11.6 g/dl (12.0-16.0) L 12/17/23 20:32 Hct 36.1 % (37.0-47.0) L 12/17/23 20:32 MCV 102.0 fL (80.0-100.0) H 12/17/23 20:32 MCH 32.8 pg (25.0-34.0) 12/17/23 20:32 MCHC 32.1 g/dL (32.0-36.0) 12/17/23 20:32 RDW Std Deviation 49.9 fL (36.4-46.3) H 12/17/23 20:32 RDW Coeff of Jimmie 13.2 % (11.5-14.5) 12/17/23 20:32 Plt Count 175 K/uL (130-400) 12/17/23 20:32 MPV 10.6 fL (9.4-12.4) 12/17/23 20:32 Immature Gran % (Auto) 0.3 % 12/17/23 20:32 Neut % (Auto) 73.9 % 12/17/23 20:32 Lymph % (Auto) 11.1 % 12/17/23 20:32 [place] % (Auto) 8.8 % 12/17/23 20:32 Eos % (Auto) 5.3 % 12/17/23 20:32 Baso % (Auto) 0.6 % 12/17/23 20:32 Neut # (Auto) 5.12 K/uL (1.40-6.50) 12/17/23 20:32 Lymph # (Auto) 0.77 K/uL (1.20-3.40) L 12/17/23 20:32 [place] # (Auto) 0.61 K/uL (0.11-0.59) H 12/17/23 20:32 Eos # (Auto) 0.37 K/uL (0.00-0.50) 12/17/23 20:32 Baso # (Auto) 0.04 K/uL (0.00-0.20) 12/17/23 20:32 Immature Gran # (Auto) 0.02 K/uL (0.01-0.20) 12/17/23 20:32 PT 11.4 Seconds (9.0-12.0) 12/17/23 20:32 INR 1.1 (0.9-1.1) 12/17/23 20:32 Sodium 139 mmol/L (136-145) 12/17/23 20:32 Potassium 3.7 mmol/L (3.5-5.1) 12/17/23 20:32 Chloride 100 mmol/L (98-107) 12/17/23 20:32 Carbon Dioxide 33 mmol/L (21-32) H 12/17/23 20:32 Anion Gap 6 (3-11) 12/17/23 20:32 BUN 35 mg/dl (6-23) H 12/17/23 20:32 Creatinine 1.32 mg/dl (0.6-1.2) H 12/17/23 20:32 Est Cr Clr Drug Dosing 29.2 ml/min 12/17/23 20:32 Est GFR ( Amer) 41.9 ml/min 12/17/23 20:32 Est GFR (Non-Af Amer) 36.2 ml/min 12/17/23 20:32 BUN/Creatinine Ratio 26.5 (10-20) H 12/17/23 20:32 Glucose 112 mg/dl (70-99(Fasting)) H 12/17/23 20:32 Calcium 9.8 mg/dl (8.6-10.3) 12/17/23 20:32 Magnesium 1.6 mg/dl (1.7-2.4) L 12/17/23 20:32 Total Bilirubin 1.2 mg/dl (0.2-1.0) H 12/17/23 20:32 AST 22 U/L (13-39) 12/17/23 20:32 ALT 23 U/L (7-52) 12/17/23 20:32 Alkaline Phosphatase 96 U/L (34-104) 12/17/23 20:32 Troponin I High Sens 33.5 pg/ml (0-14) H 12/17/23 22:37 B-Natriuretic Peptide 496 pg/ml (0-100) H 12/17/23 20:32 Total Protein 7.2 gm/dl (6.0-8.3) 12/17/23 20:32 Albumin 4.0 gm/dl (3.4-5.0) 12/17/23 20:32 Globulin 3.2 gm/dl (2.5-4.0) 12/17/23 20:32 Albumin/Globulin Ratio 1.3 (0.9-2) 12/17/23 20:32 Lipase 20 U/L (11-82) 12/17/23 20:[address] 12/17/23 20:30 Exam(s): CT C SPINE EXAM: CT Cervical Spine Without Intravenous Contrast CLINICAL HISTORY: Reason for exam: syncope; fall from standing. TECHNIQUE: Axial computed tomography images of the cervical spine without intravenous contrast. CTDI is 22 mGy and DLP is 397 mGy-cm. Automated exposure control was utilized for the study. A dose lowering technique was utilized adhering to the principles of ALARA. COMPARISON: No relevant prior studies available. FINDINGS: Bones are demineralized. Vertebral body heights are maintained. There is no fracture or subluxation. There is advanced bilateral facet degeneration associated with 3 millimeters anterolisthesis of C2 and 2 mm anterolisthesis of C3. There is degeneration of the atlantodental joint. There is multilevel disc degeneration, greatest at C4-C5, C5-C6, and C6-C7. Bulky anterior endplate osteophytes raise the possibility of diffuse idiopathic skeletal hyperostosis. There is advanced uncovertebral joint degeneration in the mid and lower cervical spine. Disc-osteophyte complex is mildly narrow the spinal canal and C4-C5 and C5-C6. There are varying degrees of bilateral foraminal narrowing. There is pleural-parenchymal scarring and paraseptal emphysema at the lung apices. Carotid calcifications are noted. There is no swelling of the prevertebral soft tissues. IMPRESSION: No acute osseous findings. Electronically signed by: Antonia Sung M.D. 12/17/23 21:[address] 12/17/23 20:30 Exam(s): CT HEAD Without Contrast EXAM: CT Head Without Intravenous Contrast CLINICAL HISTORY: Reason for exam: syncope; fall from standing. TECHNIQUE: Axial computed tomography images of the head/brain without intravenous contrast. CTDI is 55 mGy and DLP is 899 mGy-cm. Automated exposure control was utilized for the study. A dose lowering technique was utilized adhering to the principles of ALARA. COMPARISON: No relevant prior studies available. FINDINGS: Brain: Chronic lacunar infarct right thalamus. There is generalized parenchymal volume loss. Periventricular and deep cerebral white matter hypoattenuation most likely reflects chronic small vessel ischemic change. Fajardo-white matter differentiation is maintained. There is no hemorrhage, mass effect, parenchymal edema, or midline shift. Ventricles: Unremarkable. No hydrocephalus. Bones/joints: Unremarkable. No acute fracture. Soft tissues: Unremarkable. Vasculature: Intracranial atherosclerosis. Sinuses: Unremarkable as visualized. Mastoid air cells: Unremarkable as visualized. No mastoid effusion. Orbits: Bilateral lens replacements. IMPRESSION: No acute intracranial process. Electronically signed by: Antonia Sung M.D. 12/17/23 21:55 PM ECG Additional Comments: Ecg. A-fib with rate of 89 No significant change was found. Code Status & VTE Plan VTE Prophylaxis Plan VTE Prophylaxis will be ordered: Yes
[2023-12-18] MEDS ORDERED: NITROGLYCERIN SL 0.4 MG/TAB TAB SL PRN (02:14)
[2023-12-18] MEDS ORDERED: diphenhydrAMINE Capsule 25 MG CAP PO PRN (02:14)
[2023-12-18] MEDS ORDERED: DOCOSANOL 10% TOP PRN (02:14)
[2023-12-18] MEDS: LABETALOL HCL IV 5 MG/ML 20ML IV STA (03:26)
[2023-12-18] MEDS: MAGNESIUM SULFATE / D5W 1 GM/100 ML BAG IV ONE (03:26)
[2023-12-18 05:47] LABS: Basophils # (auto) 0.03 K/uL (0.00-0.20); Basophils % (auto) 0.5 %; Eosinophils % (auto) 4.7 %; Hematocrit (blood only) 34.1 % (37.0-47.0); Hemoglobin 10.7 g/dl (12.0-16.0); Immature Granulocytes # (auto) 0.02 K/uL (0.01-0.20); Immature Granulocytes % (auto) 0.3 %; Lymphocytes # (auto) 0.78 K/uL (1.20-3.40); Lymphocytes % (auto) 12.3 %; Mean Corpuscular Hemoglobin 31.8 pg (25.0-34.0); Mean Corpuscular Hgb Conc 31.4 g/dL (32.0-36.0); Mean Corpuscular Volume 101.5 fL (80.0-100.0); Mean Platelet Volume 10.3 fL (9.4-12.4); Monocytes # (auto) 0.57 K/uL (0.11-0.59); Neutrophils # (auto) 4.62 K/uL (1.40-6.50); Neutrophils % (auto) 73.2 %; Platelet Count 155 K/uL (130-400); RDW Coefficient of Variation 13.2 % (11.5-14.5); RDW Standard Deviation 49.9 fL (36.4-46.3); Red Blood Count 3.36 M/uL (4.20-5.40); White Blood Count 6.32 K/ul (4.8-10.8)
[2023-12-18 06:03] LABS: BUN Creatinine Ratio 27.8 (10-20); Creatinine Clr Calc Pharmacy 33.5 ml/min; Est GFR (African American) 49.5 ml/min; Est GFR (Non-African American) 42.7 ml/min; Magnesium 2.1 mg/dl (1.7-2.4); Potassium 3.7 mmol/L (3.5-5.1)
[2023-12-18 06:04] LABS: Appearance Urine Cloudy (Clear); Bacteria Urine Automated None Seen (None Seen); Bilirubin Urine Negative (Negative); Blood Urine Negative (Negative); Color Urine Yellow; Epithelial Cell Urine Auto 0-2 /hpf (0-2); Glucose Urine UA Negative (Negative); Ketones Urine Negative (Negative); Leukocyte Esterase Urine 3+ (Negative); Nitrite Urine Negative (Negative); Protein Urine Negative (Negative); RBC Urine Automated 0-2 /hpf (0-2); Specific Gravity Urine 1.013 (1.000-1.030); Urobilinogen Urine Negative (Negative); WBC Urine Automated >50 /hpf (0-5); pH Urine 6.5 (4.5-7.5)
--- NOTE | 2023-12-18 06:56 | XRay Report ---
SINGLE VIEW CHEST CLINICAL HISTORY: Syncope. FINDINGS: An AP, portable, upright chest radiograph is compared to study dated 11/24/2023 and correlate d with chest CT dated 10/10/2023. The patient is status post midline sternotomy and cardiac valve surg pantera. The heart is enlarged noting atherosclerotic calcification of the thoracic aorta. The pulmonary vasculature is noncongested. Emphysema and chronic interstitial thickening is similar to previous. Th ere are layering pleural effusions with dependent consolidation. No pneumothorax is seen. The skeleta l structures are osteopenic. Bony thorax is grossly intact. IMPRESSION: 1. Cardiomegaly and emphysema without radiographic evidence of congestive failure. 2. Layering pleural effusions with dependent consolidation. ACT 112: Negative or not required by law. Electronically signed by: Don Fallon M.D. 12/18/2023 6:55 AM
--- NOTE | 2023-12-18 08:05 | Electrocardiogram Report ---
Test Reason : Blood Pressure : / mmHG Vent. Rate : 096 BPM Atrial Rate : 277 BPM P-R Int : 000 ms QRS Dur : 092 ms QT Int : 322 ms P-R-T Axes : 000 067 -15 degrees QTc Int : 406 ms Atrial fibrillation with premature ventricular or aberrantly conducted complexes Possible Old Inferior infarct Poor R wave progression, consider anterior DE vs. lead placement vs. LVH Abnormal ECG When compared with ECG of 17-DEC-2023 20:27, No significant change Confirmed by Juan Carlos Bearden ([id number]) on 12/18/2023 8:04:57 AM Referred By: Jim Garcia [place] Confirmed By:Juan Carlos Bearden
[2023-12-18] MEDS: FERROUS SULFATE 325 MG TAB PO SCH (08:28)
[2023-12-18] MEDS: PSYLLIUM or GUAR GUM FIBER 4GM PACKET PO SCH (08:28)
[2023-12-18] MEDS: PANTOprazole 40 MG TAB PO SCH (08:28)
--- NOTE | 2023-12-18 08:28 | Electrocardiogram Report ---
Test Reason : Blood Pressure : / mmHG Vent. Rate : 089 BPM Atrial Rate : 000 BPM P-R Int : 000 ms QRS Dur : 084 ms QT Int : 376 ms P-R-T Axes : 000 040 080 degrees QTc Int : 457 ms Atrial fibrillation Abnormal ECG When compared with ECG of 25-NOV-2023 06:01, Criteria for Anterior infarct are no longer Present No significant change was found Confirmed by Juan Carlos Bearden ([id number]) on 12/18/2023 8:27:53 AM Referred By: Jim Garcia Dorena Confirmed By:Juan Carlos Bearden
[2023-12-18] MEDS: ISOSORBIDE MONO EXTENDED REL 30 MG TABCR PO SCH (08:29)
[2023-12-18] MEDS: CHOLECALCIFEROL 25 MCG (1000 UNITS) TAB PO SCH (08:29)
[2023-12-18] MEDS: METOPROLOL SUCC 25MG EXT REL TAB PO SCH (08:29)
[2023-12-18] MEDS: TORSEMIDE 20 MG TAB PO SCH (08:29)
[2023-12-18] MEDS: FEXOFENADINE HCL 180 MG TAB PO SCH (08:29)
[2023-12-18] MEDS: SENNA 8.6 MG TAB PO SCH (08:30)
[2023-12-18] MEDS: ASPIRIN 81 MG ECTAB PO SCH (08:30)
[2023-12-18] MEDS: ATORVASTATIN 40 MG TAB PO SCH (08:30)
[2023-12-18] MEDS: ARTIFICIAL TEARS OP SCH (08:30)
[2023-12-18] MEDS: CYANOCOBALAMIN (B-12) 500 MCG TABLET PO SCH (08:30)
--- NOTE | 2023-12-18 12:35 | Cardiology Consultation ---
Date of Consultation December 18, 2023 Assessment & Plan (1) Syncope and collapse: (2) S/P aortic valve replacement with bioprosthetic valve: (3) Persistent atrial fibrillation: (4) Hypovolemia: Plan Patient presenting after a possible syncopal event with head laceration. Head CT negative for acute process. Persistent afib on telemetry with controlled rates. No pauses or high degree AV block noted. BP has been controlled during admission without significant hypotensive epis odes. She has not been anticoagulated due to development of prior right arm hematoma with IV heparin in Jul 2023 when Afib was diagnosed. She has had multiple admissions over the last few months for acute decompensated HF with repeated up titration of diuretics. Her echo this admission demonstrated underfilled LV cavity with hyperdynamic function, suggesting volume depletion, likely contributing to her syncopal event. Hold diuretics for now She was taking torsemide 10 mg daily per [facility] notes/med [facility] (not torsemide 20 mg as listed on admission). Will likely need to reduce dose to 10 mg // and monitor fluid status closely upon discharge. For now, continue metoprolol 75 mg daily and isosorbide. Continue ASA and statin Case discussed with Dr. Henry Moreira spent a total of 60 minutes on the date of service in preparation, delivery, and documentation of the care provided to this patient, excluding any time spent in the performance of separately billed services. Luz Taylor PA-C Department of Cardiology, [facility] This chart was completed in part utilizing Speech Voice Recognition Software. Grammatical errors, random word insertions, pronoun errors, and incomplete se ntences are an occasional consequence of this system due to software limitations, ambient noise, and hardware issues. Any formal questions or concerns about the content, text, or information contained within the body of this dictation should be directly addressed to the provider for clarification. Supervising Physician Co-Signing Physician Notes Patient was seen and personally examined. Full assessment and plan as outlined above by advanced provider. Care and management personally endorsed Elderly 88-year-old female with hyperdynamic LV systolic function with recent hospitalization with decompensated heart failure with upward titration of diuretics Syncopal spell at home without arrhythmias other than baseline persistent atrial fibrillation on telemetry Echocardiogram reveals extremely small LV cavity with severe left hypertrophy and hyperdynamic LV function Plan as above continue beta-pernell with potential upward titration of therapy, reduced diuretic Increase activities in hospital I spent a total of 20 minutes on the date of service in preparation, delivery, and documentation of the care provided to this patient, excluding any time spent in the performance of separately billed ser History of Present Illness Reason for Consultation: Syncope Requesting Physician: Dr. Giraldo Attending Physician: Dr. Figueroa History of Present Illness Patient is a 88 year old female, known to [facility], Dr. Lynne. History includes: 1. Aortic valve stenosis status post bioprosthetic AVR (21 mm vega Faulkner pericardial valve), 10/03/2007 2. Coronary artery disease/NSTEMI, cardiac catheterization 10/24/2019 with findings of a 99% thrombotic occlusion of the proximal LAD, subtotal chronic ostial occlusion of RCA with distal right coronary artery filling retrograde from the left to right collaterals, s/p successful PCI/SOULEYMANE to the proximal to mid LAD. 3. Persistent atrial fibrillation, initially diagnosed, 08/18/2023 at [facility]. a. Anticoagulation deferred due to upper extremity hematoma while admitted. 4. Hypertension 5. CKD stage 3 6. Dyslipidemia 7. Polymyalgia rheumatica with chronic anemia 8. Dementia Patient admitted in September 2023 with acute CHF exacerbation. Treated with IV lasix and diuretics increased on discharge from furosemide 20 mg M/W/ to 40 mg daily. Metoprolol also increased at that time due to HTN and afib with elevated rates. Patient re-admitted in November 2023 with worsening SOB/CHF exacerbation. Treated with IV lasix during admission. Upon discharge furosemide was discontinued in favor of torsemide 20 mg, started on 11/27/23. Patient evaluated in cardiology clinic last week. Was doing well with stable symptoms. weight stable. BP controlled. Per review of med list from [facility], patient was only taking torsemide 10 mg daily. Follow up BMP in the office last week with mild renal insufficiency but not overtly [facility] no med changes were made. Yesterday patient reported she was in normal state of health. She was in the restroom and suddenly felt weak/lightheaded and fell to the floor, hitting her head. She believes she lost consciousness but is not sure if this happened before or after striking her head. She came to the ER for evaluation. Head and neck CT were negative for acute pathology. EKG demonstrated afib with controlled rates. No changes. BP was controlled, not hypotensive. Mild renal insufficiency and elevated BUN noted suggesting dehydration. Patient admitted for further evaluation given syncope. At time of evaluation, patient resting in bed comfortably. VOices no acute concerns. No headache or vision changes. No chest pain or dyspnea. No recurrent dizziness, lightheadedness, syncope or near syncope Echo done this morning with small LV Allergies Allergy/AdvReac Type Severity Reaction Status Date / Time allopurinol Allergy Unknown ON TEJON Verified 12/17/23 23:30 [facility] Cephalosporins Allergy Unknown ON TEJON Verified 12/17/23 23:30 [facility] gramicidin D [From Neocidin] Allergy Unknown Redness of Verified 08/18/23 11:23 Skin neomycin [From Neocidin] Allergy Unknown Redness of Verified 08/18/23 11:23 Skin polymyxin B [From Neocidin] Allergy Unknown Redness of Verified 08/18/23 11:23 Skin chocolate AdvReac Unknown Unknown Verified 12/17/23 23:30 Home Medications Medication Instructions Recorded Confirmed Type aspirin 81 mg tablet,delayed 81 mg PO QAM 06/11/18 12/17/23 History release (Lyyl Low Dose Aspirin) acetaminophen 500 mg tablet 500 mg PO Q4H PRN Pain Scale 4-6 07/29/18 12/17/23 History (Acetaminophen Extra Strength) ferrous sulfate 325 mg (65 mg 325 mg PO TID 07/29/18 12/17/23 History iron) tablet fexofenadine 180 mg tablet 180 mg PO DAILY 09/27/19 12/17/23 History sennosides 8.6 mg tablet 8.6 mg PO QAM Constipation 09/27/19 12/17/23 History isosorbide mononitrate 30 mg 30 mg PO QAM #30 tabs 10/27/19 12/17/23 Rx tablet,extended release 24 hr docosanol 10 % topical cream 1 applic topical UD PRN Cold Sores 08/04/22 12/17/23 History (Abreva) omeprazole 20 mg capsule,delayed 20 mg PO DAILY 08/04/22 12/17/23 History release peg 400-propylene glycol (PF) 0.4 1 drp OPB BID Dry Eyes 08/04/22 12/17/23 History %-0.3 % eye drops in a dropperette (Systane (PF)) psyllium seed (sugar) oral powder 1 tbsp PO DAILY 08/04/22 12/17/23 History (Metamucil [place] oral powder) cholecalciferol (vitamin D3) 50 50 mcg PO DAILY 08/18/23 12/17/23 History mcg (2,000 unit) tablet (Vitamin D3) diphenhydramine HCl 25 mg capsule 25 mg PO HS PRN Allergies 08/18/23 12/17/23 History (Benadryl) docusate sodium 100 mg capsule 100 mg PO BID PRN Constipation #30 08/31/23 12/17/23 Rx caps atorvastatin 40 mg tablet 40 mg PO DAILY 10/08/23 12/17/23 History cyanocobalamin (vitamin B-12) 500 1,000 mcg PO DAILY 11/24/23 12/17/23 History mcg tablet loperamide 2 mg tablet 2 mg PO UD PRN Diarrhea 11/24/23 12/17/23 History metoprolol succinate 50 mg 75 mg PO DAILY 11/24/23 12/17/23 History tablet,extended release 24 hr nitroglycerin 0.4 mg sublingual 0.4 mg sublingual UD PRN Chest Pain 11/24/23 12/17/23 History tablet (Nitrostat) torsemide 20 mg tablet 20 mg PO QAM 30 days #30 tabs 11/27/23 12/17/23 Rx aluminum-mag hydroxide-simethicone 10 ml PO QID PRN Heartburn 12/17/23 12/17/23 History 400 mg-400 mg-40 mg/5 mL oral susp amoxicillin 500 mg capsule 2,000 mg PO DAILY PRN infection 12/17/23 12/17/23 History prevention miconazole nitrate 2 % topical 1 applic topical UD PRN skin 12/17/23 12/17/23 History cream protection phenylephrine 0.25 %-pramoxine 1 1 applic [place] BID PRN hemorrhoid 12/17/23 12/17/23 History %-glycerin-wh.petrolatum rectal inflammation cream (Preparation H Maximum Strength) trolamine salicylate 10 % topical 1 applic topical QID PRN Pain 12/17/23 12/17/23 History cream (Aspercreme) Patient History Medical History Acute on chronic diastolic HF (heart failure) CHF exacerbation Chronic atrial fibrillation Pleural effusion Encephalopathy Hypoxia Dementia Chronic diastolic heart failure Dyslipidemia NSTEMI (non-ST elevated myocardial infarction) 09/2019 Chronic kidney disease, stage 3 (moderate) Gout Osteoarthritis Diverticular disease Cervical cancer 1997--sx History of colon polyps Aortic valve stenosis Schatzki's ring History of esophageal dilatation History of falling Polymyalgia rheumatica Hypertension Gout Status post closed fracture of right femur Surgical History S/P aortic valve replacement with bioprosthetic valve S/P AVR History of vein stripping x2 H/O total hysterectomy History of colonoscopy H/O cataract extraction History of cardiac cath 08/20/2007 History of breast biopsy History of cholecystectomy History of esophagogastroduodenoscopy (EGD) H/O aortic valve replacement 09/2007 @ [facility] Family History Mother Rectal cancer Social History Smoking Status: Unknown if ever smoked Tobacco Type: Cigarettes Second Hand Exposure: Yes; Do You Dip or Chew Tobacco: No; Hx Alcohol Use: No Hx Substance Use: No Preferred Language: Argentine Communication Ability: Effective 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 Required: No Beliefs That Will Affect Care: None Current Living Situation: Personal Care Facility Current Living Situation Comment: [facility] current occupational status: retired Feels Safe at Home: Yes Safety Concerns: Feels Safe At This Time Assistive Devices: Walker Review of Systems Review of Systems: All systems reviewed & are unremarkable except as noted in HPI & below Physical Exam Constitutional: + thin; no acute distress Respiratory: normal respiratory effort Auscultation: + diminished lung sounds; no crackles and no rales Cardiovascular: Rate/Rhythm: + irregularly irregular Heart Sounds: + murmur (II/ systolic murmur) Vessels: no JVD Extremities: no edema Gastrointestinal (Abdomen): normal bowel sounds, soft, nontender, no hepatosplenomegaly Skin: no rashes, warm and dry Neurologic: PERRL, EOMI, accommodation nl, no face palsy, no dysarthria Results & Data Vital Signs (Past 12 Hours) Vital Signs Temp Pulse Pulse Resp BP BP Pulse Ox 12/18/23 10:53 36.6 C 91 H 17 120/75 91 12/18/23 08:00 99 H 12/18/23 07:55 12/18/23 07:38 36.3 C L 100 H 17 157/76 H 92 12/18/23 05:17 88 127/73 12/18/23 03:55 98 H 147/82 H 12/18/23 03:41 101 H 144/79 H 12/18/23 03:41 103 H 144/79 H 12/18/23 03:38 101 H 136/89 12/18/23 03:26 100 H 161/97 H 12/18/23 03:25 101 H 161/97 H 12/18/23 03:08 94 H 174/104 H 12/18/23 02:43 12/18/23 02:18 93 H 12/18/23 02:17 36.7 C 96 H 16 160/90 H 94 12/18/23 01:00 94 H 16 133/92 98 12/18/23 00:33 88 O2 Del Method O2 Flow Rate 12/18/23 10:53 Room Air 12/18/23 08:00 12/18/23 07:55 Nasal Cannula 1 12/18/23 07:38 Nasal Cannula 12/18/23 05:17 12/18/23 03:55 12/18/23 03:41 12/18/23 03:41 12/18/23 03:38 12/18/23 03:26 12/18/23 03:25 12/18/23 03:08 12/18/23 02:43 Nasal Cannula 1 12/18/23 02:18 12/18/23 02:17 Nasal Cannula 1 12/18/23 01:00 Room Air 12/18/23 00:33 Laboratory Results Cardiac Enzymes 12/17/23 12/17/23 12/18/23 Range/Units 20:32 22:37 05:31 AST 22 (13-39) U/L Troponin I High Sens 41.8 H 33.5 H 37.0 H (0-14) pg/ml B-Natriuretic Peptide 496 H (0-100) pg/ml 12/18/23 Range/Units 11:20 AST (13-39) U/L Troponin I High Sens 37.5 H (0-14) pg/ml B-Natriuretic Peptide (0-100) pg/ml Coagulation 12/17/23 Range/Units 20:32 PT 11.4 (9.0-12.0) Seconds B-Natriuretic Peptide 496 H (0-100) pg/ml CBC 12/17/23 12/18/23 Range/Units 20:32 05:31 WBC 6.93 6.32 (4.8-10.8) K/ul RBC 3.54 L 3.36 L (4.20-5.40) M/uL Hgb 11.6 L 10.7 L (12.0-16.0) g/dl Hct 36.1 L 34.1 L (37.0-47.0) % Plt Count 175 155 (130-400) K/uL Neut # (Auto) 5.12 4.62 (1.40-6.50) K/uL Lymph # (Auto) 0.77 L 0.78 L (1.20-3.40) K/uL [place] # (Auto) 0.61 H 0.57 (0.11-0.59) K/uL Eos # (Auto) 0.37 0.30 (0.00-0.50) K/uL Baso # (Auto) 0.04 0.03 (0.00-0.20) K/uL Comprehensive Metabolic Panel 12/17/23 12/18/23 Range/Units 20:32 05:31 Sodium 139 141 (136-145) mmol/L Potassium 3.7 3.7 (3.5-5.1) mmol/L Chloride 100 103 (98-107) mmol/L Carbon Dioxide 33 H 33 H (21-32) mmol/L BUN 35 H 32 H (6-23) mg/dl Creatinine 1.32 H 1.15 (0.6-1.2) mg/dl Glucose 112 H 109 H (70-99(Fasting)) mg/dl Calcium 9.8 9.0 (8.6-10.3) mg/dl AST 22 (13-39) U/L ALT 23 (7-52) U/L Alkaline Phosphatase 96 (34-104) U/L Total Protein 7.2 (6.0-8.3) gm/dl Albumin 4.0 (3.4-5.0) gm/dl Intake and Output 12/17/23 12/18/23 12/18/23 22:59 06:59 14:59 Intake Total 200 / 200 Output Total 300 / 300 Balance -100 / -100 Intake: IV 200 / 200 Magnesium Sulfate / D5w 1 gm In 200 / 200 100 ml @ 50 mls/hr IV ONE ONE Rx#:[id number] Output: Urine 300 / 300 Other: Weight 63.9 kg 63.9 kg 63.9 kg Weight Measurement Method [facility] in [facility] Patient Weight 12/19/23 06:59 Weight 63.9 kg Diagnostic Findings Telemetry reviewed: Afib with controlled ventricular rates ranging 80-100 bmp. No pauses or high degree AV block EKG reviewed from admission 12/16: Afib with controlled rates, no acute changes EKG today 12/17: Afib with occ PVC no acute ischemic changes Echo completed today 12/18/23: LV cavity is small Severe concentric LVH LVEF > 70% Bioprosthetic aortic valve with normal gradients. Moderate/severe Mitral annular calcification with trace MR Mild to moderate TR RV systolic pressure is elevated at 40-50 mmHg Chest X-Ray 12/17/23 20:30 1. Cardiomegaly and emphysema without radiographic evidence of congestive failure. 2. Layering pleural effusions with dependent consolidation. Head CT 12/17/23 20:30 IMPRESSION: No acute intracranial process. Medications Administered Current Inpatient Medications Acetaminophen (Acetaminophen 325 Mg Tab) 650 mg PO Q4H PRN PRN Reason: Pain or Fever Stop: 01/17/24 02:13 Al Hydrox/Mg Hydrox/Simethicone (Aluminum/Magnesium/Simeth (Maalox Max) 30 Ml Udc) 10 ml PO QID PRN PRN Reason: Heartburn Stop: 01/17/24 02:13 Artificial Tears (Artificial Tears) 1 drops OP BID [facility] Stop: 01/17/24 08:59 Last Admin: 12/18/23 08:30 Dose: Not Given Aspirin (Aspirin 81 Mg Ectab) 81 mg PO QAM [facility] Stop: 01/17/24 08:59 Last Admin: 12/18/23 08:30 Dose: 81 mg Atorvastatin Calcium (Atorvastatin 40 Mg Tab) 40 mg PO DAILY [facility] Stop: 01/17/24 08:59 Last Admin: 12/18/23 08:30 Dose: 40 mg Cyanocobalamin (Cyanocobalamin (B-12) 500 Mcg Tablet) 1,000 mcg PO DAILY [facility] Stop: 01/17/24 08:59 Last Admin: 12/18/23 08:30 Dose: 1,000 mcg Diphenhydramine HCl (Diphenhydramine Capsule 25 Mg Cap) 25 mg PO HS PRN PRN Reason: Allergies Stop: 01/17/24 02:13 Docusate Sodium (Docusate Sodium 100 Mg Cap) 100 mg PO BID PRN PRN Reason: Constipation Stop: 01/17/24 02:13 Ferrous Sulfate (Ferrous Sulfate 325 Mg Tab) 325 mg PO TIDM [facility] Stop: 01/17/24 07:59 Last Admin: 12/18/23 12:26 Dose: 325 mg Fexofenadine HCl (Fexofenadine Hcl 180 Mg Tab) 180 mg PO DAILY [facility] Stop: 01/17/24 08:59 Last Admin: 12/18/23 08:29 Dose: 180 mg Isosorbide Mononitrate (Isosorbide [place] Extended Rel 30 Mg Tabcr) 30 mg PO QAM [facility] Stop: 01/17/24 08:59 Last Admin: 12/18/23 08:29 Dose: 30 mg Metoprolol Succinate (Metoprolol Succ 25mg Ext Rel Tab) 75 mg PO DAILY [facility] Stop: 01/17/24 08:59 Last Admin: 12/18/23 08:29 Dose: 75 mg Nitroglycerin (Nitroglycerin Sl 0.4 Mg/Tab Tab) 0.4 mg SL Q5M PRN PRN Reason: Chest Pain Stop: 01/17/24 02:13 Pantoprazole Sodium (Pantoprazole 40 Mg Tab) 40 mg PO DAILY [facility] Stop: 01/17/24 08:59 Last Admin: 12/18/23 08:28 Dose: 40 mg Polyethylene Glycol (Polyethylene (Miralax) 17 Gm Pack) 17 gm PO DAILY PRN PRN Reason: Constipation Stop: 01/17/24 02:13 Psyllium Hydrophilic Mucilloid (Psyllium Or Guar Gum Fiber 4gm Packet) 4 gm PO DAILY [facility] Stop: 01/17/24 08:59 Last Admin: 12/18/23 08:28 Dose: 4 gm Sennosides (Senna 8.6 Mg Tab) 8.6 mg PO QAM [facility] Stop: 01/17/24 08:59 Last Admin: 12/18/23 08:30 Dose: 8.6 mg Torsemide (Torsemide 20 Mg Tab) 20 mg PO QAM [facility] Stop: 01/17/24 08:59 Last Admin: 12/18/23 08:29 Dose: 20 mg Vitamin D (Cholecalciferol 25 Mcg (1000 Units) Tab) 50 mcg PO DAILY [facility] Stop: 01/17/24 08:59 Last Admin: 12/18/23 08:29 Dose: 50 mcg
[2023-12-19 06:28] LABS: Hematocrit (blood only) 32.1 % (37.0-47.0); Hemoglobin 10.4 g/dl (12.0-16.0); Mean Corpuscular Hemoglobin 32.5 pg (25.0-34.0); Mean Corpuscular Hgb Conc 32.4 g/dL (32.0-36.0); Mean Corpuscular Volume 100.3 fL (80.0-100.0); Mean Platelet Volume 10.8 fL (9.4-12.4); Platelet Count 159 K/uL (130-400); RDW Standard Deviation 48.2 fL (36.4-46.3); White Blood Count 6.75 K/ul (4.8-10.8)
[2023-12-19 06:47] LABS: BUN Creatinine Ratio 28.4 (10-20); Calcium 9.1 mg/dl (8.6-10.3); Creatinine Clr Calc Pharmacy 37.8 ml/min; Est GFR (African American) 57.3 ml/min; Est GFR (Non-African American) 49.4 ml/min; Magnesium 1.8 mg/dl (1.7-2.4); Phosphorus 3.9 mg/dl (2.5-4.9); Potassium 3.7 mmol/L (3.5-5.1)
--- NOTE | 2023-12-19 11:24 | Cardiology Progress Note ---
Date of Service December 19, 2023 Assessment & Plan (1) Syncope and collapse: (2) S/P aortic valve replacement with bioprosthetic valve: (3) Persistent atrial fibrillation: (4) Hypovolemia: Plan 12/18/23 Patient presenting after a possible syncopal event with head laceration. Head CT negative for acute process. Persistent afib on telemetry with controlled rates. No pauses or high degree AV block noted. BP has been controlled during admission without significant hypotensive e pisodes. She has not been anticoagulated due to development of prior right arm hematoma with IV heparin in Jul 2023 when Afib was diagnosed. She has had multiple admissions over the last few months for acute decompensated HF with repeated up titration of diuretics. Her echo this admission demonstrated underfilled LV cavity with hyperdynamic function, suggesting volume depletion, likely contributing to her syncopal event. Hold diuretics for now She was taking torsemide 10 mg daily per care home notes/med list (not torsemide 20 mg as listed on admission). Will likely need to reduce dose to 10 mg // and monitor fluid status closely upon discharge. For now, continue metoprolol 75 mg daily and isosorbide. Continue ASA and statin 12/19/23: No recurrent syncopal spells. HR remains borderline elevated while awake. Increase metoprolol succinate to 50 mg BID Continue to hold diuretic for now. Will likely need to resume lower dose on discharge. Home dose is listed at torsemide 20 mg daily, but according to outpatient/[facility] records, patient was only taking torsemide 10 mg daily. Will need this verified with care home. Echo yesterday with very small LV cavity, underfilled. Likely volume depletion contributed to syncopal episode. Persistent afib on telemetry without pauses. Continue all other cardiac meds. Case discussed with Dr. Henry Moreira spent a total of 30 minutes on the date of service in preparation, delivery, and documentation of the care provided to this patient, excluding any time spent in the performance of separately billed services. Luz Taylor PA-C Department of Cardiology, [facility] This chart was completed in part utilizing Speech Voice Recognition Software. Grammatical errors, random word insertions, pronoun errors, and incomplete sentences are an occasional consequence of this system due to software limitations, ambient noise, and hardware issues. Any formal questions or concerns about the content, text, or information contained within the body of this dictation should be directly addressed to the provider for clarification. Admission and Anticipated Discharge Date Admission Date: December 18, 2023 Supervising Physician Co-Signing Physician Notes Patient was seen and personally examined. Full assessment and plan as outlined above by advanced provider. Care and management personally endorsed Elderly 88-year-old female with hyperdynamic LV systolic function with recent hospitalization with decompensated heart failure with upward titration of diuretics Syncopal spell at home without arrhythmias other than baseline persistent atrial fibrillation on telemetry Echocardiogram reveals extremely small LV cavity with severe left hypertrophy and hyperdynamic LV function Plan as above increase beta-pernell , reduced diuretic Increase activities in hospital I spent a total of 15 minutes on the date of service in preparation, delivery, and documentation of the care provided to this patient, excluding any time spent in the performance of separately billed ser Subjective Patient resting in bed comfortably. Denies recurrent dizziness/lightheadedness. SOB at baseline. No edema. No chest pain. Reports she feels "weak and tired" which is not new Review of Systems Review of Systems: All systems reviewed & are unremarkable except as noted in HPI & below Physical Exam Constitutional: + thin; no acute distress Respiratory: normal respiratory effort Auscultation: + diminished lung sounds; no crackles and no rales Cardiovascular: Rate/Rhythm: + irregularly irregular Heart Sounds: + murmur (II/ systolic murmur) Vessels: no JVD Extremities: no edema Gastrointestinal (Abdomen): normal bowel sounds, soft, nontender, no hepatosplenomegaly Skin: no rashes, warm and dry Neurologic: PERRL, EOMI, accommodation nl, no face palsy, no dysarthria Results & Data Vital Signs (Past 12 Hours) Vital Signs Temp Pulse Pulse Resp BP Pulse Ox O2 Del Method 12/19/23 08:05 36.8 C 92 H 20 161/94 H 96 Nasal Cannula 12/19/23 07:22 Room Air 12/19/23 07:22 100 H 12/19/23 03:53 36.8 C 103 H 18 132/76 91 Nasal Cannula 12/19/23 02:01 O2 Del Method O2 Flow Rate 12/19/23 08:05 1 12/19/23 07:22 12/19/23 07:22 12/19/23 03:53 1.0 12/19/23 02:01 Room Air Laboratory Results Cardiac Enzymes 12/18/23 Range/Units 11:20 Troponin I High Sens 37.5 H (0-14) pg/ml CBC 12/19/23 Range/Units 05:44 WBC 6.75 (4.8-10.8) K/ul RBC 3.20 L (4.20-5.40) M/uL Hgb 10.4 L (12.0-16.0) g/dl Hct 32.1 L (37.0-47.0) % Plt Count 159 (130-400) K/uL Comprehensive Metabolic Panel 12/19/23 Range/Units 05:44 Sodium 139 (136-145) mmol/L Potassium 3.7 (3.5-5.1) mmol/L Chloride 101 (98-107) mmol/L Carbon Dioxide 32 (21-32) mmol/L BUN 29 H (6-23) mg/dl Creatinine 1.02 (0.6-1.2) mg/dl Glucose 91 (70-99(Fasting)) mg/dl Calcium 9.1 (8.6-10.3) mg/dl Intake and Output 12/18/23 12/19/23 12/19/23 22:59 06:59 14:59 Intake Total 50 / 410 Output Total 790 / 1090 300 / 1090 Balance -740 / -680 -300 / -680 Intake: Oral 50 / 410 Output: Urine 790 / 1090 300 / 1090 Other: Other Intake Source SIPS Weight 62 kg Weight Measurement [facility] Findings Telemetry reviewed: Persistent afib, rates 80-90's overnight. This morning rates trending slightly higher at 100-120 while awake. Medications Administered Current Inpatient Medications Acetaminophen (Acetaminophen 325 Mg Tab) 650 mg PO Q4H PRN PRN Reason: Pain or Fever Stop: 01/17/24 02:13 Al Hydrox/Mg Hydrox/Simethicone (Aluminum/Magnesium/Simeth (Maalox Max) 30 Ml Udc) 10 ml PO QID PRN PRN Reason: Heartburn Stop: 01/17/24 02:13 Artificial Tears (Artificial Tears) 1 drops OP BID [place] Stop: 01/17/24 08:59 Last Admin: 12/19/23 08:46 Dose: 1 drops Aspirin (Aspirin 81 Mg Ectab) 81 mg PO QAM [facility] Stop: 01/17/24 08:59 Last Admin: 12/19/23 08:46 Dose: 81 mg Atorvastatin Calcium (Atorvastatin 40 Mg Tab) 40 mg PO DAILY [facility] Stop: 01/17/24 08:59 Last Admin: 12/19/23 08:46 Dose: 40 mg Cyanocobalamin (Cyanocobalamin (B-12) 500 Mcg Tablet) 1,000 mcg PO DAILY [facility] Stop: 01/17/24 08:59 Last Admin: 12/19/23 08:45 Dose: 1,000 mcg Diphenhydramine HCl (Diphenhydramine Capsule 25 Mg Cap) 25 mg PO HS PRN PRN Reason: Allergies Stop: 01/17/24 02:13 Docusate Sodium (Docusate Sodium 100 Mg Cap) 100 mg PO BID PRN PRN Reason: Constipation Stop: 01/17/24 02:13 Ferrous Sulfate (Ferrous Sulfate 325 Mg Tab) 325 mg PO TIDM [facility] Stop: 01/17/24 07:59 Last Admin: 12/19/23 08:45 Dose: 325 mg Fexofenadine HCl (Fexofenadine Hcl 180 Mg Tab) 180 mg PO DAILY [facility] Stop: 01/17/24 08:59 Last Admin: 12/19/23 08:45 Dose: 180 mg Isosorbide Mononitrate (Isosorbide [place] Extended Rel 30 Mg Tabcr) 30 mg PO QAM [facility] Stop: 01/17/24 08:59 Last Admin: 12/19/23 08:46 Dose: 30 mg Metoprolol Succinate (Metoprolol Succ 50mg Ext Rel Tab) 50 mg PO BID [facility] Stop: 01/18/24 20:59 Nitroglycerin (Nitroglycerin Sl 0.4 Mg/Tab Tab) 0.4 mg SL Q5M PRN PRN Reason: Chest Pain Stop: 01/17/24 02:13 Pantoprazole Sodium (Pantoprazole 40 Mg Tab) 40 mg PO DAILY [facility] Stop: 01/17/24 08:59 Last Admin: 12/19/23 08:45 Dose: 40 mg Polyethylene Glycol (Polyethylene (Miralax) 17 Gm Pack) 17 gm PO DAILY PRN PRN Reason: Constipation Stop: 01/17/24 02:13 Psyllium Hydrophilic Mucilloid (Psyllium Or Guar Gum Fiber 4gm Packet) 4 gm PO DAILY [facility] Stop: 01/17/24 08:59 Last Admin: 12/19/23 08:45 Dose: 4 gm Sennosides (Senna 8.6 Mg Tab) 8.6 mg PO QAM [place] Stop: 01/17/24 08:59 Last Admin: 12/19/23 08:45 Dose: 8.6 mg Vitamin D (Cholecalciferol 25 Mcg (1000 Units) Tab) 50 mcg PO DAILY [place] Stop: 01/17/24 08:59 Last Admin: 12/19/23 08:45 Dose: 50 mcg
[2023-12-19] MEDS ORDERED: TORSEMIDE 10 MG TAB PO SCH (11:30)
--- NOTE | 2023-12-19 11:35 | Electrocardiogram Report ---
Test Reason : Blood Pressure : / mmHG Vent. Rate : 098 BPM Atrial Rate : 340 BPM P-R Int : 000 ms QRS Dur : 092 ms QT Int : 368 ms P-R-T Axes : 000 061 085 degrees QTc Int : 469 ms Atrial fibrillation with premature ventricular or aberrantly conducted complexes Possible Old Inferior infarct Abnormal ECG When compared with ECG of 18-DEC-2023 05:53, Borderline criteria for Anterior infarct are no longer Present QT has lengthened Confirmed by Juan Carlos Bearden ([id number]) on 12/19/2023 11:35:10 AM Referred By: Jim Garcia Anderson Confirmed By:Juan Carlos Bearden
--- NOTE | 2023-12-19 16:27 | Hospitalist Progress Note ---
Date of Service December 19, 2023 Assessment & Plan (1) Syncope and collapse: Plan: 88-year-old female with past medical history significant for gout, hyperlipidemia, hypertension, history of CAD s/p stent, CKD stage III, history of malignant neoplasm of corpus uteri, polymyalgia rheumatica, osteoporosis, glaucoma, bullous pemphigoid, aortic stenosis s/p bioprosthetic aortic valve replacement, Chronic diastolic CHF and history of pleural effusion with thoracocentesis who lives at [facility] comes with episode of syncope. Patient states she was in the kitchen when suddenly she feels dizzy and fell down on the side and hit her head. Syncope/fall at home- No arrhythmia, suspected orthostatic/dehydration due to excess diuretics given her preload dependent state per echo. Echo reviewed- extremely small LV cavity with severe left hypertrophy and hyperdynamic LV function. CT head and cervical spine with no acute abnormality. Cardio following. PT OT eval pending. Ortho vitals history of CAD s/p stent- on aspirin, statin, Imdur, metoprolol succinate Chronic diastolic CHF- compensated. Diuretics on hold per cardio and will be further cut down at discharge. BB increased and diuretic decreased per cardio CKD stage III- Cr stable at baseline, of 1, with gr in 50s Hypomagnesemia- resolved Persistent atrial fibrillation- on metoprolol, anticoagulation previously deferred because of right hematoma DVT ppx- sc heparin Dispo- Pending PT OT eval. Time spent- approx 36 mins Admission and Anticipated Discharge Date Admission Date: December 18, 2023 Subjective Patient was seen and examined at bedside. she feels okay. apparently her PCP had increased her diuretics due to concern for volume overload and this caused the syncope and fall- spoke with cardio and currently diuretics on hold and will be further cut down at discharge. Denies any fever, chills, CP, SOB, N/V. Review of Systems Review of Systems: All systems reviewed & are unremarkable except as noted in Subjective Physical Exam Physical Exam: General: Frail elderly female, sitting in bed, on NC 1L HEENT: [place], MMM Chest: Diminished breath sounds CVS: Irregularly irregular, no JVD Abdomen: Soft, non tender, not distended, normal bowel sounds Neuro: Awake, alert, oriented, conversing well, non focal Extremities: No edema Results & Data Results & Data Vital Signs (Past 12 Hours) Vital Signs Temp Pulse Pulse Resp BP Pulse Ox O2 Del Method 12/19/23 15:00 90 12/19/23 11:41 36.8 C 81 18 134/80 95 Nasal Cannula 12/19/23 08:05 36.8 C 92 H 20 161/94 H 96 Nasal Cannula 12/19/23 07:22 Room Air 12/19/23 07:22 100 H O2 Flow Rate 12/19/23 15:00 12/19/23 11:41 1 12/19/23 08:05 1 12/19/23 07:22 12/19/23 07:22 Laboratory Results Short CBC 12/19/23 Range/Units 05:44 WBC 6.75 (4.8-10.8) K/ul Hgb 10.4 L (12.0-16.0) g/dl Hct 32.1 L (37.0-47.0) % Plt Count 159 (130-400) K/uL BMP 12/19/23 05:44 Sodium 139 Potassium 3.7 Chloride 101 Carbon Dioxide 32 BUN 29 H Creatinine 1.02 Glucose 91 Calcium 9.1
[2023-12-19] MEDS: METOPROLOL SUCC 50MG EXT REL TAB PO SCH (21:20)
[2023-12-19] MEDS: HEPARIN SOD 5,000 UNIT/0.5 ML VIAL SQ SCH (21:25)
[2023-12-20 06:23] LABS: BUN Creatinine Ratio 25.7 (10-20); Creatinine Clr Calc Pharmacy 38.2 ml/min; Potassium 4.2 mmol/L (3.5-5.1)
[2023-12-20 06:33] LABS: Hematocrit (blood only) 33.3 % (37.0-47.0); Hemoglobin 10.7 g/dl (12.0-16.0); Mean Corpuscular Hemoglobin 32.2 pg (25.0-34.0); Mean Corpuscular Hgb Conc 32.1 g/dL (32.0-36.0); Mean Corpuscular Volume 100.3 fL (80.0-100.0); Mean Platelet Volume 10.9 fL (9.4-12.4); Platelet Count 170 K/uL (130-400); RDW Coefficient of Variation 13.1 % (11.5-14.5); RDW Standard Deviation 49.1 fL (36.4-46.3); Red Blood Count 3.32 M/uL (4.20-5.40); White Blood Count 7.19 K/ul (4.8-10.8)
--- NOTE | 2023-12-20 07:43 | Electrocardiogram Report ---
Test Reason : Blood Pressure : / mmHG Vent. Rate : 091 BPM Atrial Rate : 113 BPM P-R Int : 000 ms QRS Dur : 080 ms QT Int : 358 ms P-R-T Axes : 000 058 062 degrees QTc Int : 440 ms Atrial fibrillation vs. Atrial flutter Possible Old Anterior infarct Possible Old Inferior infarct Abnormal ECG When compared with ECG of 19-DEC-2023 05:52, Criteria for Anterior infarct now present Confirmed by Juan Carlos Bearden ([id number]) on 12/20/2023 7:43:22 AM Referred By: Jim Garcia Wellman Confirmed By:Juan Carlos Bearden
[2023-12-20] MEDS: OPTIRAY 320 125ml IV ONE (09:05)
--- NOTE | 2023-12-20 09:32 | CT Scan Report ---
HEAD CT NONCONTRAST CT DOSE: 2729.92 mGy.cm HISTORY: Left-sided visual changes. cva s/s TECHNIQUE: Multiaxial CT images of the head were performed without the use of intravenous contrast. A utomated exposure control was utilized for this study. A dose lowering technique was utilized adheri ng to the principles of ALARA. Comparison: Head CT 12/17/2023. Findings: The paranasal sinuses and mastoid air cells are clear. The calvarium and skull base are int act. There is no mass, hematoma, midline shift, acute infarct. White matter hypodensity is nonspecifi c but suggestive of microvascular ischemic change. The ventricles and sulci demonstrate mild age-rela gianni involutional changes. Mild motion artifact. Prior bilateral lens replacement. Punctate calcificat ion again noted within the barry. Old lacunar infarct within the right thalamus, unchanged. Impression: No significant change compared to the prior study. No acute intracranial abnormality. ACT 112: Negative or not required by law. Electronically signed by: Ludwig Braga M.D. 12/20/2023 9:30 AM
--- NOTE | 2023-12-20 09:36 | CT Scan Report ---
NECK CTA HISTORY: Left-sided visual changes. TECHNIQUE: Multiaxial CT images of the neck were performed following the intravenous administration o f contrast to evaluate the major cervical vessels. 3D/MIP images were also obtained. Sagittal and cor onal reformats were reviewed. All measurements were calculated based on NASCET criteria. A dose low ering technique was utilized adhering to the principles of ALARA. COMPARISON STUDY: None. FINDINGS: The aortic arch and proximal great vessels are widely patent. Moderate calcified plaque wi thin the bilateral carotid bifurcations without significant stenosis. The bilateral common carotid ar teries are widely patent. The left vertebral artery is widely patent. There is focal moderate narrowi ng of approximately 50% within the mid right vertebral artery due to the adjacent cervical spine oste ophytes. There is focal moderate to severe narrowing within the distal right cervical internal caroti d artery best seen on image 277 due to mass effect from the adjacent styloid process and C1 vertebral body. This demonstrates approximate 70% focal stenosis. The left internal carotid artery demonstrate s approximately 20% focal stenosis proximally. The mid to distal left internal carotid artery is wide ly patent. Partially visualized bilateral pleural effusions. IMPRESSION: 1. No evidence for occlusion or dissection within the major cervical vessels. 2. There is focal moderate narrowing of approximately 50% within the mid right vertebral artery due t o the adjacent cervical spine osteophytes. 3. There is focal moderate to severe narrowing within the distal right cervical internal carotid praneeth ry due to mass effect from the adjacent styloid process and C1 vertebral body. This demonstrates appr oximate 70% focal stenosis. 4. Bilateral pleural effusions are partially visualized. ACT 112: Negative or not required by law. Electronically signed by: Ludwig Braga M.D. 12/20/2023 9:34 AM
--- NOTE | 2023-12-20 09:36 | CT Scan Report ---
CTA ANGIOGRAPHY OF THE HEAD CLINICAL HISTORY: cva s/s. Left-sided visual changes. COMPARISON STUDY: CTA of the head August 06, 2022. Head CT December 17, 2023. TECHNIQUE: Helical axial images of the head were obtained following uneventful intravenous administr ation of 120 cc of Optiray. Sagittal and coronal reconstructions were viewed as well as maximal inten sity projections on an independent 3-D workstation. Automated exposure control was utilized for the study. A dose lowering technique was utilized adhering to the principles of ALARA. FINDINGS: Ventricular system is stable. Basal cisterns are patent. There are no extra-axial collectio ns. No acute hemorrhage is identified on the head CT will be reported separately. There is moderate p laque within the bilateral cavernous carotids without stenosis. No vessel occlusion within the intrac ranial circulation is noted. There is persistence of the right posterior cerebral artery. Poste rior circulation is intact. There is no intracranial aneurysm or dissection. Of note, there is mild a symmetric dilatation of the distal left ophthalmic vein on axial image 172 of 282. The cavernous sinu s appears unremarkable on this examination. No retrobulbar abnormalities present. There is no proptos is. IMPRESSION: 1. No large vessel occlusion. No intracranial injury. 2. Mild asymmetric dilatation of the distal left ophthalmic vein. No additional abnormalities identif ied. This finding is of questionable significance. ACT 112: Negative or not required by law. Electronically signed by: Conrado Skaggs M.D. 12/20/2023 9:35 AM
[2023-12-20] MEDS ORDERED: PHARMACIST DISCHARGE MED REC CONSULT PRN (10:11)
[2023-12-20 10:22] LABS: INR 1.1 (0.9-1.1); Partial Thromboplastin Time 26 Seconds (21-31); Prothrombin Time 11.9 Seconds (9.0-12.0)
[2023-12-20] MEDS ORDERED: Heparin IV Adult Wt-Based Low-Dose *NO* INITIAL Bolus Protocol IV SCH (10:22)
[2023-12-20] MEDS: amLODIPine BESYLATE 5 MG TAB PO SCH (10:29)
[2023-12-20] MEDS: DOXYCYCLINE HYCLATE 100 MG CAP PO SCH (10:30)
[2023-12-20] MEDS: HEPARIN SODIUM/DEXTROSE 25,000 UNITS/500 ML BAG IV SCH (11:42)
--- NOTE | 2023-12-20 13:29 | Cardiology Progress Note ---
Date of Service December 20, 2023 Assessment & Plan (1) Syncope and collapse: (2) S/P aortic valve replacement with bioprosthetic valve: (3) Persistent atrial fibrillation: (4) Hypovolemia: Plan 12/18/23 Patient presenting after a possible syncopal event with head laceration. Head CT negative for acute process. Persistent afib on telemetry with controlled rates. No pauses or high degree AV block noted. BP has been controlled during admission without significant hypotensive e pisodes. She has not been anticoagulated due to development of prior right arm hematoma with IV heparin in Jul 2023 when Afib was diagnosed. She has had multiple admissions over the last few months for acute decompensated HF with repeated up titration of diuretics. Her echo this admission demonstrated underfilled LV cavity with hyperdynamic function, suggesting volume depletion, likely contributing to her syncopal event. Hold diuretics for now She was taking torsemide 10 mg daily per long term notes/med list (not torsemide 20 mg as listed on admission). Will likely need to reduce dose to 10 mg // and monitor fluid status closely upon discharge. For now, continue metoprolol 75 mg daily and isosorbide. Continue ASA and statin 12/19/23: No recurrent syncopal spells. HR remains borderline elevated while awake. Increase metoprolol succinate to 50 mg BID Continue to hold diuretic for now. Will likely need to resume lower dose on discharge. Home dose is listed at torsemide 20 mg daily, but according to outpatient/[facility] records, patient was only taking torsemide 10 mg daily. Will need this verified with long term. Echo yesterday with very small LV cavity, underfilled. Likely volume depletion contributed to syncopal episode. Persistent afib on telemetry without pauses. Continue all other cardiac meds. 12/20/2023 Patient admitted with possible syncopal event. Today with transient visual field loss with spontaneous recovery Ongoing concerns 1. Possible syncopal event versus neurologic event given recent concerns. Agree with anticoagulation with IV heparin despite past concerns with falls and bleeding. Remains at high risk for further neurologic events 2. Persistent atrial fibrillation with controlled rates no pauses or bradycardia arrhythmias 3. Labile hypertension: Amlodipine added to medical regimen this morning agree with plan may consider discontinuation of isosorbide if blood pressure controlled. 4. Chronic dyspnea secondary to diastolic dysfunction, emphysematous lung disease. No profound volume overload but small pleural effusions on chest x- ray. No evidence of jugular venous distention on well-visualized neck veins. Single dose of torsemide today. Expect will need dose 2 to 3 days/week on discharge I spent a total of 30 minutes on the date of service in preparation, delivery, and documentation of the care provided to this patient, excluding any time spent in the performance of separately billed services. This chart was completed in part utilizing Speech Voice Recognition Software. Grammatical errors, random word insertions, pronoun errors, and incomplete sentences are an occasional consequence of this system due to software limitations, ambient noise, and hardware issues. Any formal questions or concerns about the content, text, or information contained within the body of this dictation should be directly addressed to the provider for clarification. Admission and Anticipated Discharge Date Admission Date: December 18, 2023 Subjective Patient seen and examined, chart, medications, telemetry reviewed. Events of past day noted with patient transient left visual loss intermittently x 23 with spontaneous return Blood pressure hypertensive during event Chronic dyspnea. Initial stroke evaluation unrevealing and patient initiated on anticoagulation with IV heparin Physical Exam Constitutional: + thin; no acute distress Respiratory: normal respiratory effort Auscultation: + diminished lung sounds; no crackles and no rales Cardiovascular: Rate/Rhythm: + irregularly irregular Heart Sounds: + murmur (II/ systolic murmur) Vessels: no JVD Extremities: no edema Gastrointestinal (Abdomen): normal bowel sounds, soft, nontender, no hepatosplenomegaly Skin: no rashes, warm and dry Neurologic: PERRL, EOMI, accommodation nl, no face palsy, no dysarthria Results & Data Vital Signs (Past 12 Hours) Vital Signs Temp Pulse Pulse Resp BP BP BP 12/20/23 11:09 36.8 C 90 20 147/87 H 12/20/23 10:28 90 167/91 H 12/20/23 10:15 93 H 20 12/20/23 10:00 146/86 H 12/20/23 10:00 88 17 12/20/23 09:45 154/87 H 12/20/23 09:45 91 H 21 12/20/23 09:33 87 23 12/20/23 09:33 163/102 H 12/20/23 09:30 164/94 H 12/20/23 09:30 85 22 12/20/23 09:17 171/106 H 12/20/23 09:17 90 22 12/20/23 09:16 168/89 H 12/20/23 09:16 87 12/20/23 08:55 99 H 171/96 H 12/20/23 08:49 102 H 185/107 H 12/20/23 08:45 95 H 32 H 12/20/23 08:30 108 H 25 H 12/20/23 08:15 95 H 19 12/20/23 08:00 12/20/23 08:00 97 H 21 12/20/23 07:30 36.6 C 104 H 25 H 192/113 H 193/116 H 12/20/23 07:00 92 H 12/20/23 02:00 12/20/23 02:00 36.8 C 94 H 22 142/87 H Pulse Ox Pulse Ox O2 Del Method O2 Del Method O2 Flow Rate O2 Flow Rate 12/20/23 11:09 95 Nasal Cannula 2 12/20/23 10:28 12/20/23 10:15 92 12/20/23 10:00 12/20/23 10:00 98 12/20/23 09:45 12/20/23 09:45 95 12/20/23 09:33 100 12/20/23 09:33 12/20/23 09:30 12/20/23 09:30 100 12/20/23 09:17 12/20/23 09:17 12/20/23 09:16 12/20/23 09:16 12/20/23 08:55 12/20/23 08:49 89 L Nasal Cannula 1 12/20/23 08:45 12/20/23 08:30 12/20/23 08:15 12/20/23 08:00 Nasal Cannula 1 12/20/23 08:00 12/20/23 07:30 89 L Nasal Cannula 1 12/20/23 07:00 12/20/23 02:00 94 Nasal Cannula 1 12/20/23 02:00 90 Nasal Cannula 1
[2023-12-20] MEDS: TORSEMIDE 10 MG TAB PO ONE (14:07)
--- NOTE | 2023-12-20 15:47 | Hospitalist Progress Note ---
Date of Service December 20, 2023 Assessment & Plan (1) Syncope and collapse: Plan: 88-year-old female with past medical history significant for gout, hyperlipidemia, hypertension, history of CAD s/p stent, CKD stage III, history of malignant neoplasm of corpus uteri, polymyalgia rheumatica, osteoporosis, glaucoma, bullous pemphigoid, aortic stenosis s/p bioprosthetic aortic valve replacement, Chronic diastolic CHF and history of pleural effusion with thoracocentesis who lives at [facility] comes with episode of syncope. Patient states she was in the kitchen when suddenly she feels dizzy and fell down on the side and hit her head. Sudden onset vision loss left eye with complete spontaneous recovery- Details as above. CT head and CTA head with no acute abnormality. Seen by teleneuro- no indication for TNK given spontaneous recovery. Recommended MRI brain, stroke labs, neuro eval and ophthalmology eval. Agreed with anticoagulation given her A fib and stroke risk. MRI brain/orbit pending. Started on IV heparin drip as concern for cardioembolism. Syncope/fall at home- No arrhythmia, suspected orthostatic/dehydration due to excess diuretics given her preload dependent state per echo. Echo reviewed- extremely small LV cavity with severe left hypertrophy and hyperdynamic LV function. CT head and cervical spine with no acute abnormality. Cardio following. Orthostatic vitals noted. History of CAD s/p stent- on aspirin, statin, Imdur, metoprolol succinate Chronic diastolic CHF- compensated. Diuretics per cardio. Given torsemide today. Likely will need as needed or thrice weekly. HTN- BP elevated. BB increased. Amlodipine added. Will monitor CKD stage III- Cr stable at baseline, of 1, with gr in 50s Hypomagnesemia- resolved Persistent atrial fibrillation- on metoprolol, started on iv heparin drip given her risk for cardioembolic events. Will change to eliquis 2.5 bid at discharge unless limited by bleeding events. UTI- urine clx with staph aureus pansensitive. Will start on doxy for 1 week course. DVT ppx- heparin drip Dispo- Pending further work up Time spent- approx 80 mins Updated daughter over the phone Admission and Anticipated Discharge Date Admission Date: December 18, 2023 Subjective Patient was seen and examined at bedside. This morning, I was called by RN regarding her sudden onset vision loss in left eye. Evaluated immediately at bedside. Her NIH score was 1 for the vision loss. Fingerstick 130. BP was in 190s/110s but had improved to 170s/90s. Stroke alert was called. Stat CT head and CTA head and neck with no acute abnormality. Tele neurology consultation was done. I spoke with Dr Alvarado from [place]. Recommended ophthalmology evaluation. I spoke to [facility] for consult/evaluation but I was told they are not commission auditor and can not come to the hospital. By that time, her visual loss had recovered completely. Neuro did not recommend TNK but agreed with anticoagulation given his A fib. Spoke with cardio who agrees with anticoagulation given her A fib and echo findings and her risk for further neurologic events. She also recommended MRI brain along with stroke labs and regular neurology consult. More than 80 minutes was spent taking care of this patient. Review of Systems Review of Systems: All systems reviewed & are unremarkable except as noted in Subjective Physical Exam Physical Exam: General: Frail elderly female, sitting in bed, on NC 1L HEENT: [place], MMM Chest: Diminished breath sounds CVS: Irregularly irregular, no JVD Abdomen: Soft, non tender, not distended, normal bowel sounds Neuro: Awake, alert, oriented, conversing well, non focal Extremities: No edema Results & Data Results & Data Vital Signs (Past 12 Hours) Vital Signs Temp Pulse Pulse Resp BP BP BP 12/20/23 11:09 36.8 C 90 20 147/87 H 12/20/23 10:28 90 167/91 H 12/20/23 10:15 93 H 20 12/20/23 10:00 146/86 H 12/20/23 10:00 88 17 12/20/23 09:45 154/87 H 12/20/23 09:45 91 H 21 12/20/23 09:33 87 23 12/20/23 09:33 163/102 H 12/20/23 09:30 164/94 H 12/20/23 09:30 85 22 12/20/23 09:17 171/106 H 12/20/23 09:17 90 22 12/20/23 09:16 168/89 H 12/20/23 09:16 87 12/20/23 08:55 99 H 171/96 H 12/20/23 08:49 102 H 185/107 H 12/20/23 08:45 95 H 32 H 12/20/23 08:30 108 H 25 H 12/20/23 08:15 95 H 19 12/20/23 08:00 12/20/23 08:00 97 H 21 12/20/23 07:30 36.6 C 104 H 25 H 192/113 H 193/116 H 12/20/23 07:00 92 H Pulse Ox O2 Del Method O2 Flow Rate 12/20/23 11:09 95 Nasal Cannula 2 12/20/23 10:28 12/20/23 10:15 92 12/20/23 10:00 12/20/23 10:00 98 12/20/23 09:45 12/20/23 09:45 95 12/20/23 09:33 100 12/20/23 09:33 12/20/23 09:30 12/20/23 09:30 100 12/20/23 09:17 12/20/23 09:17 12/20/23 09:16 12/20/23 09:16 12/20/23 08:55 12/20/23 08:49 89 L Nasal Cannula 1 12/20/23 08:45 12/20/23 08:30 12/20/23 08:15 12/20/23 08:00 Nasal Cannula 1 12/20/23 08:00 12/20/23 07:30 89 L Nasal Cannula 1 12/20/23 07:00 Laboratory Results Short CBC 12/20/23 Range/Units 05:36 WBC 7.19 (4.8-10.8) K/ul Hgb 10.7 L (12.0-16.0) g/dl Hct 33.3 L (37.0-47.0) % Plt Count 170 (130-400) K/uL BMP 12/20/23 05:36 Sodium 137 Potassium 4.2 Chloride 101 Carbon Dioxide 32 BUN 26 H Creatinine 1.01 Glucose 102 H Calcium 10.0
[2023-12-20 18:25] LABS: ANTI-Xa, UFH(UnfractionatedHep 0.29 IU/ml (0.3-0.7)
--- NOTE | 2023-12-20 20:13 | Magnetic Resonance Report ---
MR brain wo con CLINICAL HISTORY: Sudden onset loss of vision left eye TECHNIQUE: Multiplanar and multisequence MR images of the brain were obtained without intravenous con trast. Comparison: Prior MRI brain 08/08/[address] head 12/20/2023 FINDINGS: No abnormal restricted diffusion is identified. Foci of T2 and FLAIR hyperintensity are noted in the paraventricular areas consistent with chronic small vessel ischemic disease. Ex vacuo ventriculomegal y and sulcal enlargement is noted compatible with diffuse volume loss. Right posterior fossa meningio ma is again seen. There is no mass effect or midline shift. Again seen is a tiny focus of susceptibil ity artifact. No extra axial fluid collections are seen. The corpus callosum, pituitary gland, and ce rebellar tonsils appear grossly unremarkable. Flow voids of the major intracranial arterial vessels are identified. The imaged portions of the para nasal sinuses, mastoid air cells, and orbits are unremarkable. IMPRESSION: 1. No acute abnormality and in particular no evidence of acute infarct. 2. Tiny foci of susceptibility artifact are unchanged from prior exam. No new foci are seen. Finding s are nonspecific although amyloid cannot be excluded. 3. Tiny meningioma is again seen. ACT 112: Negative or not required by law. Electronically signed by: Socrates Mcclelland M.D. 12/20/2023 8:10 PM
--- NOTE | 2023-12-20 21:35 | Magnetic Resonance Report ---
Exam(s): MRI ORBITS EXAM: MR Orbits Without Intravenous Contrast CLINICAL HISTORY: Reason for exam: sudden onset loss of vision Left eye. Fell 3 days ago, hitting head. TECHNIQUE: Multiplanar magnetic resonance images of the orbits without intravenous contrast. Mild artifact and limited detail due to noncontrast technique. COMPARISON: MRI brain also done, dictated separately. Compared with CT/CTA done earlier, and MRI brain 08/08/22. FINDINGS: Orbits: Unremarkable. Sinuses: Unremarkable. No air-fluid levels. Bones/joints: Unremarkable. No acute fracture. Soft tissues: Unremarkable. IMPRESSION: 1. No abnormal signal or acute abnormality along the visual pathway. 2. Limited evaluation due to artifact and noncontrast technique. Electronically signed by: So Miguel M.D. 12/20/23 21:34 PM
[2023-12-21 01:12] LABS: ANTI-Xa, UFH(UnfractionatedHep 0.34 IU/ml (0.3-0.7)
[2023-12-21 05:05] LABS: Basophils # (auto) 0.05 K/uL (0.00-0.20); Basophils % (auto) 0.7 %; Eosinophils # (auto) 0.39 K/uL (0.00-0.50); Eosinophils % (auto) 5.2 %; Hematocrit (blood only) 31.9 % (37.0-47.0); Hemoglobin 10.3 g/dl (12.0-16.0); Immature Granulocytes # (auto) 0.03 K/uL (0.01-0.20); Immature Granulocytes % (auto) 0.4 %; Lymphocytes # (auto) 0.57 K/uL (1.20-3.40); Lymphocytes % (auto) 7.6 %; Mean Corpuscular Hemoglobin 32.8 pg (25.0-34.0); Mean Corpuscular Hgb Conc 32.3 g/dL (32.0-36.0); Mean Corpuscular Volume 101.6 fL (80.0-100.0); Mean Platelet Volume 10.5 fL (9.4-12.4); Monocytes # (auto) 0.61 K/uL (0.11-0.59); Monocytes % (auto) 8.1 %; Neutrophils # (auto) 5.86 K/uL (1.40-6.50); Platelet Count 163 K/uL (130-400); RDW Coefficient of Variation 13.2 % (11.5-14.5); RDW Standard Deviation 49.2 fL (36.4-46.3); Red Blood Count 3.14 M/uL (4.20-5.40); White Blood Count 7.51 K/ul (4.8-10.8)
[2023-12-21 05:18] LABS: BUN Creatinine Ratio 25.7 (10-20); Calcium 9.5 mg/dl (8.6-10.3); Chol HDL Ratio 2.7 (0-5); Creatinine Clr Calc Pharmacy 36.7 ml/min; Est GFR (African American) 55.3 ml/min; Est GFR (Non-African American) 47.7 ml/min; Magnesium 1.8 mg/dl (1.7-2.4); Potassium 4.2 mmol/L (3.5-5.1)
[2023-12-21 05:29] LABS: ANTI-Xa, UFH(UnfractionatedHep 0.37 IU/ml (0.3-0.7)
[2023-12-21 07:24] LABS: Estimated Average Glucose 123 mg/dl; Hemoglobin A1C 5.9 % (4.5-5.6)
[2023-12-21] MEDS: APIXABAN 2.5 MG TAB PO SCH (09:27)
--- NOTE | 2023-12-21 10:35 | Neurology Consultation ---
Date of Consultation December 21, 2023 Assessment & Plan (1) Vitreous floaters of left eye: Batsheva Dumas is an 88 yo F presenting with transient floaters in the L eye in the setting of admission for syncope. This is not consistent with a vascular etiology and agree that the patient should follow-up with opthalmology. Given her age and risk factors, anticoagulation is still favored over antiplatelet for her afib for general stroke prevention. -- Ophthalmology follow-up -- Agree with anticoagulation for afib -- No further neurologic workup recommended. Telehealth Consultation Telehealth Information Telehealth Information: I performed this visit using a real-time telehealth connection between my location and the patients location ([facility]). After connecting through interactive tele-video, patient was identified by name and date of and/or wristband check.Patient (or authorized healthcare automobile sales representative) was informed that this was a telemedicine visit and it was being conducted confidentially over secure lines. My office door was closed and no one else was present in the room with me.Patient (or authorized healthcare automobile sales representative) provided consent to proceed with the visit, expressed an understanding of privacy and security of the telemedicine visit, and gave permission to have a hospital automobile sales representative in the room in order to assist with the visit and to conduct portions of the visit, as needed. I informed the patient (or authorized healthcare automobile sales representative) that I reviewed their record and presented the opportunity for them to ask any questions regarding the visit today. The patient agreed to participate. History of Present Illness Reason for Consultation: L eye vision changes Requesting Physician: Dr. Lake Attending Physician: Chase Lake MD History of Present Illness Batsheva Dumas is an 88 yo F presenting with 20 minutes of L eye floaters yesterday. The patient is currently admitted for syncope in the setting of orthostatics and hypovolemia. She feels much better today and notes that she never lost vision but that she had floaters she could look around. She is unsure if she has an opthalmologist but notes that this has not recurred. There was no eye pain, no headache, no numbness, weakness or speech changes. Allergies Allergy/AdvReac Type Severity Reaction Status Date / Time allopurinol Allergy Unknown ON SHOALWATER Verified 12/17/23 23:30 [facility] Cephalosporins Allergy Unknown ON SHOALWATER Verified 12/17/23 23:30 [facility] gramicidin D [From Neocidin] Allergy Unknown Redness of Verified 08/18/23 11:23 Skin neomycin [From Neocidin] Allergy Unknown Redness of Verified 08/18/23 11:23 Skin polymyxin B [From Neocidin] Allergy Unknown Redness of Verified 08/18/23 11:23 Skin chocolate AdvReac Unknown Unknown Verified 12/17/23 23:30 Home Medications Medication Instructions Recorded Confirmed Type aspirin 81 mg tablet,delayed 81 mg PO QAM 06/11/18 12/17/23 History release (Lyly Low Dose Aspirin) acetaminophen 500 mg tablet 500 mg PO Q4H PRN Pain Scale 4-6 07/29/18 12/17/23 History (Acetaminophen Extra Strength) ferrous sulfate 325 mg (65 mg 325 mg PO TID 07/29/18 12/17/23 History iron) tablet fexofenadine 180 mg tablet 180 mg PO DAILY 09/27/19 12/17/23 History sennosides 8.6 mg tablet 8.6 mg PO QAM Constipation 09/27/19 12/17/23 History isosorbide mononitrate 30 mg 30 mg PO QAM #30 tabs 10/27/19 12/17/23 Rx tablet,extended release 24 hr docosanol 10 % topical cream 1 applic topical UD PRN Cold Sores 08/04/22 12/17/23 History (Abreva) omeprazole 20 mg capsule,delayed 20 mg PO DAILY 08/04/22 12/17/23 History release peg 400-propylene glycol (PF) 0.4 1 drp OPB BID Dry Eyes 08/04/22 12/17/23 History %-0.3 % eye drops in a dropperette (Systane (PF)) psyllium seed (sugar) oral powder 1 tbsp PO DAILY 08/04/22 12/17/23 History (Metamucil [place] oral powder) cholecalciferol (vitamin D3) 50 50 mcg PO DAILY 08/18/23 12/17/23 History mcg (2,000 unit) tablet (Vitamin D3) diphenhydramine HCl 25 mg capsule 25 mg PO HS PRN Allergies 08/18/23 12/17/23 History (Benadryl) docusate sodium 100 mg capsule 100 mg PO BID PRN Constipation #30 08/31/23 12/17/23 Rx caps atorvastatin 40 mg tablet 40 mg PO DAILY 10/08/23 12/17/23 History cyanocobalamin (vitamin B-12) 500 1,000 mcg PO DAILY 11/24/23 12/17/23 History mcg tablet loperamide 2 mg tablet 2 mg PO UD PRN Diarrhea 11/24/23 12/17/23 History metoprolol succinate 50 mg 75 mg PO DAILY 11/24/23 12/17/23 History tablet,extended release 24 hr nitroglycerin 0.4 mg sublingual 0.4 mg sublingual UD PRN Chest Pain 11/24/23 12/17/23 History tablet (Nitrostat) torsemide 20 mg tablet 20 mg PO QAM 30 days #30 tabs 11/27/23 12/17/23 Rx aluminum-mag hydroxide-simethicone 10 ml PO QID PRN Heartburn 12/17/23 12/17/23 History 400 mg-400 mg-40 mg/5 mL oral susp amoxicillin 500 mg capsule 2,000 mg PO DAILY PRN infection 12/17/23 12/17/23 History prevention miconazole nitrate 2 % topical 1 applic topical UD PRN skin 12/17/23 12/17/23 History cream protection phenylephrine 0.25 %-pramoxine 1 1 applic PA BID PRN hemorrhoid 12/17/23 12/17/23 History %-glycerin-wh.petrolatum rectal inflammation cream (Preparation H Maximum Strength) trolamine salicylate 10 % topical 1 applic topical QID PRN Pain 12/17/23 12/17/23 History cream (Aspercreme) Patient History Medical History Acute on chronic diastolic HF (heart failure) CHF exacerbation Chronic atrial fibrillation Pleural effusion Encephalopathy Hypoxia Dementia Chronic diastolic heart failure Dyslipidemia NSTEMI (non-ST elevated myocardial infarction) 09/2019 Chronic kidney disease, stage 3 (moderate) Gout Osteoarthritis Diverticular disease Cervical cancer 1997--sx History of colon polyps Aortic valve stenosis Schatzki's ring History of esophageal dilatation History of falling Polymyalgia rheumatica Hypertension Gout Status post closed fracture of right femur Surgical History S/P aortic valve replacement with bioprosthetic valve S/P AVR History of vein stripping x2 H/O total hysterectomy History of colonoscopy H/O cataract extraction History of cardiac cath 08/20/2007 History of breast biopsy History of cholecystectomy History of esophagogastroduodenoscopy (EGD) H/O aortic valve replacement 09/2007 @ [facility] Family History Mother Rectal cancer Social History Smoking Status: Unknown if ever smoked Tobacco Type: Cigarettes Second Hand Exposure: Yes; Do You Dip or Chew Tobacco: No; Hx Alcohol Use: No Hx Substance Use: No Preferred Language: Urdu Communication Ability: Effective Camp Program Director Required: No Beliefs That Will Affect Care: None Current Living Situation: Personal Care Facility Current Living Situation Comment: [facility] current occupational status: retired Feels Safe at Home: Yes Safety Concerns: Feels Safe At This Time Assistive Devices: Walker Review of Systems +L eye floaters Physical Exam Neurological Examination: Mental Status: Awake and alert. Oriented to person, place, and time. Fluent. Comprehension intact. Affect appropriate. Cranial Nerves: II: pupils 3/3 to 2/2 III/IV/: Versions intact without nystagmus, no gaze preference. V: Facial sensation symmetric to light touch VII: Facial expression symmetric VIII: Hearing intact to voice IX/X: Palate elevates symmetrically Motor: Strength was symmetric and antigravity throughout. Pronator drift was absent. There were no abnormal movements. Coordination: Finger to nose and heel to concepcion were intact. Reflexes: Unable to assess over telemedicine Results & Data Vital Signs (Past 12 Hours) Vital Signs Temp Pulse Resp BP Pulse Ox O2 Del Method O2 Flow Rate 12/21/23 08:25 36.3 C L 98 H 20 139/77 99 Nasal Cannula 2 12/21/23 02:49 36.6 C 86 18 143/82 H 96 Nasal Cannula 2 12/20/23 23:16 36.6 C 91 H 18 133/74 96 Nasal Cannula 2 Laboratory Results Abnormal lab results 12/20/23 12/21/23 Range/Units 17:40 04:22 RBC 3.14 L (4.20-5.40) M/uL Hgb 10.3 L (12.0-16.0) g/dl Hct 31.9 L (37.0-47.0) % MCV 101.6 H (80.0-100.0) fL RDW Std Deviation 49.2 H (36.4-46.3) fL Lymph # (Auto) 0.57 L (1.20-3.40) K/uL [place] # (Auto) 0.61 H (0.11-0.59) K/uL Heparin Anti-Xa, Unfract 0.29 L (0.3-0.7) IU/ml Carbon Dioxide 33 H (21-32) mmol/L BUN 27 H (6-23) mg/dl BUN/Creatinine Ratio 25.7 H (10-20) Glucose 101 H (70-99(Fasting)) mg/dl Hemoglobin A1c 5.9 H (4.5-5.6) % Diagnostic Findings MRI brain without contrast
--- NOTE | 2023-12-21 12:43 | Cardiology Progress Note ---
Date of Service December 21, 2023 Assessment & Plan (1) Syncope and collapse: (2) S/P aortic valve replacement with bioprosthetic valve: (3) Persistent atrial fibrillation: (4) Hypovolemia: (5) TIA (transient ischemic attack): Plan 12/18/23 Patient presenting after a possible syncopal event with head laceration. Head CT negative for acute process. Persistent afib on telemetry with controlled rates. No pauses or high degree AV block noted. BP has been controlled during admission without significant hypotensive episodes. She has not been anticoagulated due to development of prior right arm hematoma with IV heparin in Jul 2023 when Afib was diagnosed. She has had multiple admissions over the last few months for acute decompensated HF with repeated up titration of diuretics. Her echo this admission demonstrated underfilled LV cavity with hyperdynamic function, suggesting volume depletion, likely contributing to her syncopal event. Hold diuretics for now She was taking torsemide 10 mg daily per correction notes/med list (not torsemide 20 mg as listed on admission). Will likely need to reduce dose to 10 mg // and monitor fluid status closely upon discharge. For now, continue metoprolol 75 mg daily and isosorbide. Continue ASA and statin 12/19/23: No recurrent syncopal spells. HR remains borderline elevated while awake. Increase metoprolol succinate to 50 mg BID Continue to hold diuretic for now. Will likely need to resume lower dose on discharge. Home dose is listed at torsemide 20 mg daily, but according to outpatient/[facility] records, patient was only taking torsemide 10 mg daily. Will need this verified with correction. Echo yesterday with very small LV cavity, underfilled. Likely volume depletion contributed to syncopal episode. Persistent afib on telemetry without pauses. Continue all other cardiac meds. 12/20/2023 Patient admitted with possible syncopal event. Today with transient visual field loss with spontaneous recovery Ongoing concerns 1. Possible syncopal event versus neurologic event given recent concerns. Agree with anticoagulation with IV heparin despite past concerns with falls and bleeding. Remains at high risk for further neurologic events 2. Persistent atrial fibrillation with controlled rates no pauses or bradycardia arrhythmias 3. Labile hypertension: Amlodipine added to medical regimen this morning agree with plan may consider discontinuation of isosorbide if blood pressure controlled. 4. Chronic dyspnea secondary to diastolic dysfunction, emphysematous lung disease. No profound volume overload but small pleural effusions on chest x- ray. No evidence of jugular venous distention on well-visualized neck veins. Single dose of torsemide today. Expect will need dose 2 to 3 days/week on discharge 12/21/23: Patient with transient visual loss of left eye multiple times yesterday. Imaging unremarkable. Symptoms concerning for possible TIA. Initially treated with IV heparin then transitioned to low dose Eliquis 2.5 mg BID. Risks/benefits of anticoagulation discussed. Patient in agreement. Fall risks discussed. Continue statin Hypertension - BP improved with addition of amlodipine. Continue metoprolol and isosorbide as well. Chronic dyspnea is multifactorial with emphysematous lung disease, diastolic dysfunction. Appears euvolemic on exam only small chronic B/L pleural effusions. Upon presentation to [place] she was hypovolemic likely causing her syncope. Would discharge on torsemide 10 mg - PRN dose only. Daily weight at nursing facility encouraged. PT/OT recommended. No further cardiac testing warranted at this time. Stable for discharge back to nursing facility from cardiac standpoint. Case discussed with Dr. Figueroa. I spent a total of 30 minutes on the date of service in preparation, delivery, and documentation of the care provided to this patient, excluding any time spent in the performance of separately billed services. This chart was completed in part utilizing Speech Voice Recognition Software. Grammatical errors, random word insertions, pronoun errors, and incomplete sentences are an occasional consequence of this system due to software limitations, ambient noise, and hardware issues. Any formal questions or concerns about the content, text, or information contained within the body of this dictation should be directly addressed to the provider for clarification. Admission and Anticipated Discharge Date Admission Date: December 18, 2023 Supervising Physician Co-Signing Physician Notes Patient was seen and personally examined. Full assessment and plan as outlined above by advanced provider. Care and management personally endorsed Elderly 88-year-old female with hyperdynamic LV systolic function with recent hospitalization with decompensated heart failure with upward titration of diuretics Syncopal spell at home without arrhythmias other than baseline persistent atrial fibrillation on telemetry Echocardiogram reveals extremely small LV cavity with severe left hypertrophy and hyperdynamic LV function Hospital course notable for transient TIA previously off anticoagulation due to bleeding complications and risks Plan as above increase beta-pernell , added amlodipine Reduced diuretic dosage with compression stockings to be worn at home Anticoagulation indicated and begun with Eliquis at reduced dose due to age and weight Fall precautions discussed with patient No other recommended Call with questions I spent a total of 15 minutes on the date of service in preparation, delivery, and documentation of the care provided to this patient, excluding any time spent in the performance of separately billed ser Subjective Patient sitting up in chair, working with PT upon evaluation. She reports feeling "good". Chronic dyspnea reported but this is unchanged. Denies chest pain. No recurrent visual disturbances since yesterday. No dizziness. Review of Systems Review of Systems: All systems reviewed & are unremarkable except as noted in HPI & below Physical Exam Constitutional: + thin; no acute distress Respiratory: normal respiratory effort Auscultation: + diminished lung sounds; no crackles and no rales Cardiovascular: Rate/Rhythm: + irregularly irregular Heart Sounds: + murmur (II/ systolic murmur) Vessels: no JVD Extremities: no edema Gastrointestinal (Abdomen): normal bowel sounds, soft, nontender, no hepatosplenomegaly Skin: no rashes, warm and dry Neurologic: PERRL, EOMI, accommodation nl, no face palsy, no dysarthria Results & Data Vital Signs (Past 12 Hours) Vital Signs Temp Pulse Resp BP Pulse Ox O2 Del Method O2 Flow Rate 12/21/23 10:51 36.7 C 85 18 105/63 96 Nasal Cannula 2.5 12/21/23 08:25 36.3 C L 98 H 20 139/77 99 Nasal Cannula 2 12/21/23 02:49 36.6 C 86 18 143/82 H 96 Nasal Cannula 2 Laboratory Results Lipids 12/21/23 Range/Units 04:22 Triglycerides 62 (0-150) mg/dl Cholesterol 95 (0-200) mg/dl HDL Cholesterol 35 mg/dl Cholesterol/HDL Ratio 2.7 (0-5) CBC 12/21/23 Range/Units 04:22 WBC 7.51 (4.8-10.8) K/ul RBC 3.14 L (4.20-5.40) M/uL Hgb 10.3 L (12.0-16.0) g/dl Hct 31.9 L (37.0-47.0) % Plt Count 163 (130-400) K/uL Neut # (Auto) 5.86 (1.40-6.50) K/uL Lymph # (Auto) 0.57 L (1.20-3.40) K/uL Erath # (Auto) 0.61 H (0.11-0.59) K/uL Eos # (Auto) 0.39 (0.00-0.50) K/uL Baso # (Auto) 0.05 (0.00-0.20) K/uL Comprehensive Metabolic Panel 12/21/23 Range/Units 04:22 Sodium 139 (136-145) mmol/L Potassium 4.2 (3.5-5.1) mmol/L Chloride 101 (98-107) mmol/L Carbon Dioxide 33 H (21-32) mmol/L BUN 27 H (6-23) mg/dl Creatinine 1.05 (0.6-1.2) mg/dl Glucose 101 H (70-99(Fasting)) mg/dl Calcium 9.5 (8.6-10.3) mg/dl Intake and Output 12/20/23 12/21/23 12/21/23 22:59 06:59 14:59 Intake Total 105.75 / 478.017 172.267 / 478.017 60.267 / 60.267 Output Total 150 / 450 Balance 105.75 / 28.017 22.267 / 28.017 60.267 / 60.267 Intake: IV 105.75 / 278.017 172.267 / 278.017 60.267 / 60.267 Heparin Sodium/Dextrose 25,000 105.75 / 278.017 172.267 / 278.017 60.267 / 60.267 units In 500 ml @ 800 UNITS/HR 16 mls/hr IV .Q24H [facility] Rx#: [id number] Output: Urine 150 / 450 Other: Weight 61.8 kg Weight Measurement Method Built in [facility] Diagnostic Findings Telemetry reviewed: Afib with rates ranging 80-100 bmp Medications Administered Current Inpatient Medications Acetaminophen (Acetaminophen 325 Mg Tab) 650 mg PO Q4H PRN PRN Reason: Pain or Fever Stop: 01/17/24 02:13 Al Hydrox/Mg Hydrox/Simethicone (Aluminum/Magnesium/Simeth (Maalox Max) 30 Ml Udc) 10 ml PO QID PRN PRN Reason: Heartburn Stop: 01/17/24 02:13 Amlodipine Besylate (Amlodipine Besylate 5 Mg Tab) 5 mg PO QAM [facility] Stop: 01/19/24 08:59 Last Admin: 12/21/23 09:27 Dose: 5 mg Apixaban (Apixaban 2.5 Mg Tab) 2.5 mg PO BID [place] Stop: 01/20/24 08:59 Last Admin: 12/21/23 09:27 Dose: 2.5 mg Artificial Tears (Artificial Tears) 1 drops OP BID [place] Stop: 01/17/24 08:59 Last Admin: 12/21/23 10:47 Dose: 1 drops Aspirin (Aspirin 81 Mg Ectab) 81 mg PO QAM [facility] Stop: 01/17/24 08:59 Last Admin: 12/21/23 09:27 Dose: 81 mg Atorvastatin Calcium (Atorvastatin 40 Mg Tab) 40 mg PO DAILY [place] Stop: 01/17/24 08:59 Last Admin: 12/21/23 09:27 Dose: 40 mg Cyanocobalamin (Cyanocobalamin (B-12) 500 Mcg Tablet) 1,000 mcg PO DAILY [place] Stop: 01/17/24 08:59 Last Admin: 12/21/23 09:29 Dose: 1,000 mcg Diphenhydramine HCl (Diphenhydramine Capsule 25 Mg Cap) 25 mg PO HS PRN PRN Reason: Allergies Stop: 01/17/24 02:13 Docusate Sodium (Docusate Sodium 100 Mg Cap) 100 mg PO BID PRN PRN Reason: Constipation Stop: 01/17/24 02:13 Doxycycline Hyclate (Doxycycline Hyclate 100 Mg Cap) 100 mg PO BID [place] Stop: 12/25/23 08:59 Last Admin: 12/21/23 09:27 Dose: 100 mg Ferrous Sulfate (Ferrous Sulfate 325 Mg Tab) 325 mg PO TIDM [place] Stop: 01/17/24 07:59 Last Admin: 12/21/23 09:27 Dose: 325 mg Fexofenadine HCl (Fexofenadine Hcl 180 Mg Tab) 180 mg PO DAILY [place] Stop: 01/17/24 08:59 Last Admin: 12/21/23 09:29 Dose: 180 mg Isosorbide Mononitrate (Isosorbide Erath Extended Rel 30 Mg Tabcr) 30 mg PO QAM [facility] Stop: 01/17/24 08:59 Last Admin: 12/21/23 09:29 Dose: 30 mg Metoprolol Succinate (Metoprolol Succ 50mg Ext Rel Tab) 50 mg PO BID [place] Stop: 01/18/24 20:59 Last Admin: 12/21/23 09:27 Dose: 50 mg Nitroglycerin (Nitroglycerin Sl 0.4 Mg/Tab Tab) 0.4 mg SL Q5M PRN PRN Reason: Chest Pain Stop: 01/17/24 02:13 Pantoprazole Sodium (Pantoprazole 40 Mg Tab) 40 mg PO DAILY [place] Stop: 01/17/24 08:59 Last Admin: 12/21/23 09:28 Dose: 40 mg Polyethylene Glycol (Polyethylene (Miralax) 17 Gm Pack) 17 gm PO DAILY PRN PRN Reason: Constipation Stop: 01/17/24 02:13 Psyllium Hydrophilic Mucilloid (Psyllium Or Guar Gum Fiber 4gm Packet) 4 gm PO DAILY [place] Stop: 01/17/24 08:59 Last Admin: 12/21/23 09:29 Dose: 4 gm Sennosides (Senna 8.6 Mg Tab) 8.6 mg PO QAM [place] Stop: 01/17/24 08:59 Last Admin: 12/21/23 09:28 Dose: 8.6 mg Vitamin D (Cholecalciferol 25 Mcg (1000 Units) Tab) 50 mcg PO DAILY [facility] Stop: 01/17/24 08:59 Last Admin: 12/21/23 09:28 Dose: 50 mcg
--- NOTE | 2023-12-21 17:05 | Hospitalist Progress Note ---
Date of Service December 21, 2023 Assessment & Plan (1) Syncope and collapse: Plan: 88-year-old female with past medical history significant for gout, hyperlipidemia, hypertension, history of CAD s/p stent, CKD stage III, history of malignant neoplasm of corpus uteri, polymyalgia rheumatica, osteoporosis, glaucoma, bullous pemphigoid, aortic stenosis s/p bioprosthetic aortic valve replacement, Chronic diastolic CHF and history of pleural effusion with thoracocentesis who lives at [facility] comes with episode of syncope. Patient states she was in the kitchen when suddenly she feels dizzy and fell down on the side and hit her head. Sudden onset vision loss left eye with complete spontaneous recovery- stroke workup negative with negative CT head, CTA head and neck, MRI brain and orbit. Seen by teleneuro- no indication for TNK given spontaneous recovery. Seen by neurology who suggested that it could be vitreous floaters and recommended ophthalmology follow-up and did not recommend any further neurologic workup. Recommended anticoagulation for A-fib. Patient has been already started on Eliquis 2.5 twice daily. stroke protocol discontinued. Syncope/fall at home- No arrhythmia, suspected orthostatic/dehydration due to ex cess diuretics given her preload dependent state per echo. Echo reviewed- extremely small LV cavity with severe left hypertrophy and hyperdynamic LV function. CT head and cervical spine with no acute abnormality. Cardio following. Orthostatic vitals noted. History of CAD s/p stent- on aspirin, statin, Imdur, metoprolol succinate Chronic diastolic CHF- Bilateral crackles noted, currently managing diuretics. HTN- BP Better today. Continue metoprolol, amlodipine CKD stage III- Cr stable at baseline, of 1, with gr in 50s Persistent atrial fibrillation- on metoprolol, started on Eliquis this admission. UTI- urine clx with staph aureus pansensitive. Continue doxy for 1 week course started 12/19. DVT ppx- Eliquis Dispo- pending PT OT evaluation for disposition Time spent- approximately 35 minutes Admission and Anticipated Discharge Date Admission Date: December 18, 2023 Subjective patient was seen and examined at bedside. Her vision issues have resolved. No new neurological symptoms. No fever, chills, chest pain, nausea, vomiting. She does have exertional dyspnea. Review of Systems Review of Systems: All systems reviewed & are unremarkable except as noted in Subjective Physical Exam Physical Exam: General: Frail elderly female, sitting in bed, on NC 1L HEENT: TYLER, MMM Chest: Bilateral crackles CVS: Irregularly irregular, no JVD Abdomen: Soft, non tender, not distended, normal bowel sounds Neuro: Awake, alert, oriented, conversing well, non focal Extremities: No edema Results & Data Results & Data Vital Signs (Past 12 Hours) Vital Signs Temp Pulse Pulse Resp BP Pulse Ox O2 Del Method 12/21/23 15:13 36.6 C 102 H 18 135/77 98 Nasal Cannula 12/21/23 14:00 88 12/21/23 10:51 36.7 C 85 18 105/63 96 Nasal Cannula 12/21/23 08:25 36.3 C L 98 H 20 139/77 99 Nasal Cannula 12/21/23 08:00 Nasal Cannula 12/21/23 07:00 86 O2 Flow Rate 12/21/23 15:13 2 12/21/23 14:00 12/21/23 10:51 2.5 12/21/23 08:25 2 12/21/23 08:00 2 12/21/23 07:00 Laboratory Results Short CBC 12/21/23 Range/Units 04:22 WBC 7.51 (4.8-10.8) K/ul Hgb 10.3 L (12.0-16.0) g/dl Hct 31.9 L (37.0-47.0) % Plt Count 163 (130-400) K/uL BMP 12/21/23 04:22 Sodium 139 Potassium 4.2 Chloride 101 Carbon Dioxide 33 H BUN 27 H Creatinine 1.05 Glucose 101 H Calcium 9.5
[2023-12-22 06:54] LABS: Basophils # (auto) 0.05 K/uL (0.00-0.20); Basophils % (auto) 0.7 %; Eosinophils # (auto) 0.45 K/uL (0.00-0.50); Eosinophils % (auto) 6.6 %; Hematocrit (blood only) 30.4 % (37.0-47.0); Hemoglobin 9.7 g/dl (12.0-16.0); Immature Granulocytes # (auto) 0.02 K/uL (0.01-0.20); Immature Granulocytes % (auto) 0.3 %; Lymphocytes # (auto) 0.72 K/uL (1.20-3.40); Lymphocytes % (auto) 10.5 %; Mean Corpuscular Hemoglobin 32.2 pg (25.0-34.0); Mean Corpuscular Hgb Conc 31.9 g/dL (32.0-36.0); Mean Platelet Volume 10.6 fL (9.4-12.4); Monocytes # (auto) 0.66 K/uL (0.11-0.59); Monocytes % (auto) 9.6 %; Neutrophils # (auto) 4.96 K/uL (1.40-6.50); Neutrophils % (auto) 72.3 %; Platelet Count 165 K/uL (130-400); RDW Standard Deviation 48.5 fL (36.4-46.3); Red Blood Count 3.01 M/uL (4.20-5.40); White Blood Count 6.86 K/ul (4.8-10.8)
[2023-12-22 09:08] LABS: Calcium 9.6 mg/dl (8.6-10.3); Potassium 4.2 mmol/L (3.5-5.1)
[2023-12-22 09:13] LABS: BUN Creatinine Ratio 23.8 (10-20); Creatinine Clr Calc Pharmacy 29.6 ml/min; Est GFR (African American) 42.7 ml/min; Est GFR (Non-African American) 36.9 ml/min
--- NOTE | 2023-12-22 19:12 | Hospitalist Progress Note ---
Date of Service December 22, 2023 Assessment & Plan (1) Syncope and collapse: Plan: 88-year-old female with past medical history significant for gout, hyperlipidemia, hypertension, history of CAD s/p stent, CKD stage III, history of malignant neoplasm of corpus uteri, polymyalgia rheumatica, osteoporosis, glaucoma, bullous pemphigoid, aortic stenosis s/p bioprosthetic aortic valve replacement, Chronic diastolic CHF and history of pleural effusion with thoracocentesis who lives at [facility] personal-fdc comes with episode of syncope. Patient states she was in the kitchen when suddenly she feels dizzy and fell down on the side and hit her head. Sudden onset vision loss left eye with complete spontaneous recovery- stroke workup negative with negative CT head, CTA head and neck, MRI brain and orbit. Seen by teleneuro- no indication for TNK given spontaneous recovery. Seen by neurology who suggested that it could be vitreous floaters and recommended ophthalmology follow-up and did not recommend any further neurologic workup. Recommended anticoagulation for A-fib. Patient has been already started on Eliquis 2.5 twice daily. stroke protocol discontinued. Syncope/fall at home- No arrhythmia, suspected orthostatic/dehydration due to ex cess diuretics given her preload dependent state per echo. Echo reviewed- extremely small LV cavity with severe left hypertrophy and hyperdynamic LV function. CT head and cervical spine with no acute abnormality. Cardio following. Orthostatic vitals noted. History of CAD s/p stent- on aspirin, statin, Imdur, metoprolol succinate Chronic diastolic CHF- Bilateral crackles noted, currently managing diuretics. HTN- BP Better today. Continue metoprolol, amlodipine CKD stage III- Cr elevated 1.3 today, will recheck in a.m. Persistent atrial fibrillation- on metoprolol, started on Eliquis this admission. UTI- urine clx with staph aureus pansensitive. Continue doxy for 1 week course started 12/19. DVT ppx- Eliquis Dispo- Cleared by PT OT. Patient is stable to go back to [facility] but cannot accept her over the weekend. Likely discharge Sunday. Time spent- approximately 35 minutes Admission and Anticipated Discharge Date Admission Date: December 18, 2023 Subjective patient was seen and examined at bedside. She feels fine. No new neurological symptoms. No fever, chills, chest pain, nausea or vomiting. Has some exertional dyspnea. Review of Systems Review of Systems: All systems reviewed & are unremarkable except as noted in Subjective Physical Exam Physical Exam: General: Frail elderly female, sitting in chair, on NC HEENT: TYLER, MMM, some ectropion Chest: Basilar crackles CVS: Irregularly irregular, no JVD Abdomen: Soft, non tender, not distended, normal bowel sounds Neuro: Awake, alert, oriented, conversing well, non focal Extremities: No edema Results & Data Results & Data Vital Signs (Past 12 Hours) Vital Signs Temp Pulse Resp BP Pulse Ox O2 Del Method O2 Flow Rate 12/22/23 16:19 36.4 C L 89 17 143/79 H 98 Nasal Cannula 2 12/22/23 11:32 36.4 C L 86 20 98/57 L 96 Nasal Cannula 2 12/22/23 08:00 Nasal Cannula 2 12/22/23 07:14 36.7 C 89 19 131/77 93 Room Air Laboratory Results Short CBC 12/22/23 Range/Units 06:14 WBC 6.86 (4.8-10.8) K/ul Hgb 9.7 L (12.0-16.0) g/dl Hct 30.4 L (37.0-47.0) % Plt Count 165 (130-400) K/uL BMP 12/22/23 06:14 Sodium 137 Potassium 4.2 Chloride 99 Carbon Dioxide 35 H BUN 31 H Creatinine 1.30 H Glucose 90 Calcium 9.6
[2023-12-22] MEDS: DOCUSATE SODIUM 100 MG CAP PO PRN (20:24)
[2023-12-23] MEDS: ACETAMINOPHEN 325 MG TAB PO PRN (01:19)
[2023-12-23 06:34] LABS: Hematocrit (blood only) 29.7 % (37.0-47.0); Hemoglobin 9.6 g/dl (12.0-16.0); Mean Corpuscular Hemoglobin 32.5 pg (25.0-34.0); Mean Corpuscular Volume 100.7 fL (80.0-100.0); Red Blood Count 2.95 M/uL (4.20-5.40); White Blood Count 6.02 K/ul (4.8-10.8)
[2023-12-23 06:35] LABS: Basophils # (auto) 0.05 K/uL (0.00-0.20); Basophils % (auto) 0.8 %; Eosinophils # (auto) 0.37 K/uL (0.00-0.50); Eosinophils % (auto) 6.1 %; Immature Granulocytes # (auto) 0.01 K/uL (0.01-0.20); Immature Granulocytes % (auto) 0.2 %; Lymphocytes # (auto) 0.61 K/uL (1.20-3.40); Lymphocytes % (auto) 10.1 %; Mean Corpuscular Hgb Conc 32.3 g/dL (32.0-36.0); Mean Platelet Volume 10.6 fL (9.4-12.4); Monocytes # (auto) 0.59 K/uL (0.11-0.59); Monocytes % (auto) 9.8 %; Neutrophils # (auto) 4.39 K/uL (1.40-6.50); Platelet Count 161 K/uL (130-400); RDW Coefficient of Variation 12.8 % (11.5-14.5); RDW Standard Deviation 47.5 fL (36.4-46.3)
[2023-12-23] MEDS: ALUMINUM/MAGNESIUM/SIMETH (MAALOX MAX) 30 ML UDC PO PRN (08:01)
[2023-12-23] MEDS: POLYETHYLENE (MIRALAX) 17 GM PACK PO PRN (08:09)
[2023-12-23 08:15] LABS: BUN Creatinine Ratio 22.9 (10-20); Calcium 9.5 mg/dl (8.6-10.3); Est GFR (African American) 29.8 ml/min; Est GFR (Non-African American) 25.7 ml/min; Potassium 4.6 mmol/L (3.5-5.1)
--- NOTE | 2023-12-23 16:41 | Hospitalist Progress Note ---
Date of Service December 23, 2023 Assessment & Plan (1) Syncope and collapse: Plan: 88-year-old female with past medical history significant for gout, hyperlipidemia, hypertension, history of CAD s/p stent, CKD stage III, history of malignant neoplasm of corpus uteri, polymyalgia rheumatica, osteoporosis, glaucoma, bullous pemphigoid, aortic stenosis s/p bioprosthetic aortic valve replacement, Chronic diastolic CHF and history of pleural effusion with thoracocentesis who lives at [facility] personal-snf comes with episode of syncope. Patient states she was in the kitchen when suddenly she feels dizzy and fell down on the side and hit her head. PENNIE- likely EVA related to contrast for CTA. creatinine 1.75 today, baseline of 1. Will recheck in AM. if renal function gets worse, will have nephrology evaluation. Sudden onset vision loss left eye with complete spontaneous recovery- stroke workup negative with negative CT head, CTA head and neck, MRI brain and orbit. Seen by teleneuro- no indication for TNK given spontaneous recovery. Seen by neurology who suggested that it could be vitreous floaters and recommended ophthalmology follow-up and did not recommend any further neurologic workup. Recommended anticoagulation for A-fib. Patient has been already started on Eliquis 2.5 twice daily. stroke protocol discontinued. Syncope/fall at home- No arrhythmia, suspected orthostatic/dehydration due to excess diuretics given her preload dependent state per echo. Echo reviewed- extremely small LV cavity with severe left hypertrophy and hyperdynamic LV function. CT head and cervical spine with no acute abnormality. Cardio followin g. Orthostatic vitals noted. History of CAD s/p stent- on aspirin, statin, Imdur, metoprolol succinate Chronic diastolic CHF- Compensated, volume status stable, remains on room air with no shortness of breath. will have torsemide 3 times a week for as needed at discharge, currently holding in setting of PENNIE and stability. HTN- BP Better today. Continue metoprolol, amlodipine CKD stage III- Cr elevated 1.3 today, will recheck in a.m. Persistent atrial fibrillation- on metoprolol, started on Eliquis this admission. UTI- urine clx with staph aureus pansensitive. Continue doxy for 1 week course started 12/19. DVT ppx- Eliquis Dispo- Cleared by PT OT. Patient is stable to go back to [facility] but cannot accept her over the weekend. Likely discharge Tomorrow if renal function improving Time spent- approximately 35 minutes Updated daughter at bedside Admission and Anticipated Discharge Date Admission Date: December 18, 2023 Subjective patient was seen and examined at bedside. She feels good and ready to go back. she is on room air this morning. Denies any shortness of breath, chest pain, neurological symptoms. Daughter at bedside. Discussed with patient and daughter that now she is on Eliquis she has been careful to avoid falls And ask for help whenever needed. Review of Systems Review of Systems: All systems reviewed & are unremarkable except as noted in Subjective Physical Exam Physical Exam: General: Frail elderly female, sitting in chair, on room air HEENT: TYLER, MMM, some ectropion Chest: Basilar crackles CVS: Irregularly irregular, no JVD Abdomen: Soft, non tender, not distended, normal bowel sounds Neuro: Awake, alert, oriented, conversing well, non focal Extremities: No edema Results & Data Results & Data Vital Signs (Past 12 Hours) Vital Signs Temp Pulse Resp BP BP Pulse Ox O2 Del Method 12/23/23 16:02 36.7 C 79 19 134/81 92 Room Air 12/23/23 11:45 36.7 C 84 18 103/61 91 Room Air 12/23/23 07:49 36.7 C 73 18 133/81 96 Nasal Cannula 12/23/23 07:15 Nasal Cannula O2 Flow Rate 12/23/23 16:02 12/23/23 11:45 12/23/23 07:49 1.5 12/23/23 07:15 2
[2023-12-24 08:16] LABS: BUN Creatinine Ratio 22.8 (10-20); Calcium 9.8 mg/dl (8.6-10.3); Creatinine Clr Calc Pharmacy 21.4 ml/min; Est GFR (African American) 28.8 ml/min; Est GFR (Non-African American) 24.9 ml/min; Potassium 5.1 mmol/L (3.5-5.1)
--- NOTE | 2023-12-24 10:37 | Nephrology Consultation ---
Date of Consultation December 24, 2023 Assessment & Plan (1) Acute kidney injury superimposed on CKD: nonoliguric stage 1 PENNIE on CKD3B attributed to contrast-induced nephropathy, though she also began doxycycline around the same time she had IV contrast and the antibiotic plus or minus UTI could be contributing. Hemodynamically stable with acceptable volume status on exam and electrolytes Preferably would keep her 1 more day to ensure renal function is improving or at least stable; >>not unreasonable however to discharge back to facility with close outpatient monitoring: Recommend basic metabolic panel on December 26 and if back to baseline or trending toward baseline could resume outpatient torsemide at that time Recommend repeat basic metabolic panel and CXR to f/u effusions about a week after resuming torsemide - f/u w/ nephro PRN Care coordinated w/ Dr Lake regarding possible paths of care and f/u meds, labs, testing after d/c. we are in agreement. History of Present Illness Reason for Consultation: PENNIE, EVA, ok to d/c back to SNF today Requesting Physician: Dr Lake Attending Physician: Chase Lake MD History of Present Illness 88-year-old female whom I am asked to evaluate for acute kidney injury from contrast induced nephropathy was admitted here December 17 for syncope evaluation after a fall with head trauma. Past medical history includes heart failure with preserved ejection fraction, coronary artery disease status post stenting, aortic stenosis status post bioprosthetic aortic valve replacement, CKD 3, hypertension, bullous pemphigoid, polymyalgia rheumatica, history of uterine cancer, osteoporosis, glaucoma, pleural effusion requiring thoracentesis; also with history of esophageal stricture and remote right hip fracture. Her creatinine on presentation was 1.3. Creatinine improved down to 1.0 on December 18 and stayed in this range through December 20. Abruptly on December 21, creatinine climbed to 1.3 and then December 22 and December 23 has been in the 1.[address] angiography on December 19. Her outpatient creatinine has been labile but over the past 6 months has ranged from 1.1-1.4; would call her baseline approximately 1.3 diuretic use this admission>> had torsemide 20 mg on 12/17; had 10 mg torse on 12/19. on doxycycline since 12/19 ongoing for urine culture which was positive at admission for pansensitive Staph aureus. she takes torsemide 20 mg daily as an OP. denies orthostatic sx. c/o exertional dyspnea and dysuria, the latter new since arrival to hospital she states. no gross hematuria. no n/v/d/abd pain. no chest pain or plapitaitons Allergies Allergy/AdvReac Type Severity Reaction Status Date / Time allopurinol Allergy Unknown ON Verified 12/17/23 23:30 [facility] Cephalosporins Allergy Unknown ON Verified 12/17/23 23:30 [facility] gramicidin D [From Neocidin] Allergy Unknown Redness of Verified 08/18/23 11:23 Skin neomycin [From Neocidin] Allergy Unknown Redness of Verified 08/18/23 11:23 Skin polymyxin B [From Neocidin] Allergy Unknown Redness of Verified 08/18/23 11:23 Skin chocolate AdvReac Unknown Unknown Verified 12/17/23 23:30 Home Medications Medication Instructions Recorded Confirmed Type aspirin 81 mg tablet,delayed 81 mg PO QAM 06/11/18 12/17/23 History release (Lyly Low Dose Aspirin) acetaminophen 500 mg tablet 500 mg PO Q4H PRN Pain Scale 4-6 07/29/18 12/17/23 History (Acetaminophen Extra Strength) ferrous sulfate 325 mg (65 mg 325 mg PO TID 07/29/18 12/17/23 History iron) tablet fexofenadine 180 mg tablet 180 mg PO DAILY 09/27/19 12/17/23 History sennosides 8.6 mg tablet 8.6 mg PO QAM Constipation 09/27/19 12/17/23 History isosorbide mononitrate 30 mg 30 mg PO QAM #30 tabs 10/27/19 12/17/23 Rx tablet,extended release 24 hr docosanol 10 % topical cream 1 applic topical UD PRN Cold Sores 08/04/22 12/17/23 History (Abreva) omeprazole 20 mg capsule,delayed 20 mg PO DAILY 08/04/22 12/17/23 History release peg 400-propylene glycol (PF) 0.4 1 drp OPB BID Dry Eyes 08/04/22 12/17/23 History %-0.3 % eye drops in a dropperette (Systane (PF)) psyllium seed (sugar) oral powder 1 tbsp PO DAILY 08/04/22 12/17/23 History (Metamucil Mckee oral powder) cholecalciferol (vitamin D3) 50 50 mcg PO DAILY 08/18/23 12/17/23 History mcg (2,000 unit) tablet (Vitamin D3) diphenhydramine HCl 25 mg capsule 25 mg PO HS PRN Allergies 08/18/23 12/17/23 History (Benadryl) docusate sodium 100 mg capsule 100 mg PO BID PRN Constipation #30 08/31/23 12/17/23 Rx caps atorvastatin 40 mg tablet 40 mg PO DAILY 10/08/23 12/17/23 History cyanocobalamin (vitamin B-12) 500 1,000 mcg PO DAILY 11/24/23 12/17/23 History mcg tablet loperamide 2 mg tablet 2 mg PO UD PRN Diarrhea 11/24/23 12/17/23 History metoprolol succinate 50 mg 75 mg PO DAILY 11/24/23 12/17/23 History tablet,extended release 24 hr nitroglycerin 0.4 mg sublingual 0.4 mg sublingual UD PRN Chest Pain 11/24/23 12/17/23 History tablet (Nitrostat) torsemide 20 mg tablet 20 mg PO QAM 30 days #30 tabs 11/27/23 12/17/23 Rx aluminum-mag hydroxide-simethicone 10 ml PO QID PRN Heartburn 12/17/23 12/17/23 History 400 mg-400 mg-40 mg/5 mL oral susp amoxicillin 500 mg capsule 2,000 mg PO DAILY PRN infection 12/17/23 12/17/23 History prevention miconazole nitrate 2 % topical 1 applic topical UD PRN skin 12/17/23 12/17/23 History cream protection phenylephrine 0.25 %-pramoxine 1 1 applic MI BID PRN hemorrhoid 12/17/23 12/17/23 History %-glycerin-wh.petrolatum rectal inflammation cream (Preparation H Maximum Strength) trolamine salicylate 10 % topical 1 applic topical QID PRN Pain 12/17/23 12/17/23 History cream (Aspercreme) Patient History Medical History Acute on chronic diastolic HF (heart failure) Chronic atrial fibrillation Pleural effusion Encephalopathy Hypoxia Chronic kidney disease, stage 3 (moderate) Gout Osteoarthritis Diverticular disease Cervical cancer 1997--sx History of colon polyps Schatzki's ring History of esophageal dilatation History of falling Polymyalgia rheumatica Hypertension Gout Status post closed fracture of right femur Surgical History S/P AVR History of vein stripping x2 H/O total hysterectomy History of colonoscopy H/O cataract extraction History of cardiac cath 08/20/2007 History of breast biopsy History of cholecystectomy History of esophagogastroduodenoscopy (EGD) H/O aortic valve replacement 09/2007 @ [facility] [place] Family History Mother Rectal cancer Social History Smoking Status: Unknown if ever smoked Tobacco Type: Cigarettes Second Hand Exposure: Yes; Do You Dip or Chew Tobacco: No; Hx Alcohol Use: No Hx Substance Use: No Preferred Language: Sami Communication Ability: Effective Neighborhood Worker Required: No Beliefs That Will Affect Care: None Current Living Situation: Personal Care Facility Current Living Situation Comment: [facility] current occupational status: retired Feels Safe at Home: Yes Safety Concerns: Feels Safe At This Time Assistive Devices: Walker Review of Systems 2 Review of Systems: All systems reviewed & are unremarkable except as noted in HPI & below Physical Exam 2 Constitutional: well developed, + thin (sitting up in chair on RA), + frail appearing and cooperative; no acute distress Eyes: EOM intact bilaterally ENMT: Ears: no external ear abnormality Nose: no external nose abnormality Mouth: + dry oral mucous membranes Neck: no nuchal rigidity Respiratory: normal respiratory effort Auscultation: + diminished lung sounds (markedly) and + crackles (bibasilar) Cardiovascular: Rate/Rhythm: regular rate and regular rhythm Heart Sounds: + murmur Extremities: + edema (trace dependent) Gastrointestinal (Abdomen): Inspection/Auscultation: normal bowel sounds P ercussion/Palpation: abdomen soft; abdomen nontender Musculoskeletal: Extremities: strength 5/5 throughout Skin: no rashes, warm and dry Neurologic: dobbins, fluent speech, no tremor Results & Data Vital Signs (Past 12 Hours) Vital Signs Temp Pulse Pulse Resp BP Pulse Ox O2 Del Method 12/24/23 08:02 36.7 C 85 19 152/74 H 95 Room Air 12/24/23 07:33 82 12/24/23 07:21 Nasal Cannula 12/24/23 02:22 36.7 C 80 18 144/73 H 93 Nasal Cannula 12/24/23 00:07 36.6 C 71 18 130/74 96 Nasal Cannula 12/23/23 23:42 81 O2 Flow Rate 12/24/23 08:02 12/24/23 07:33 12/24/23 07:21 2 12/24/23 02:22 2 12/24/23 00:07 2 12/23/23 23:42 Laboratory Results 12/23/23 05:54 12/24/23 07:45 Diagnostic Findings CXR admission w/ emphysema, w/o vascular congestion: + for BL layering effusions
--- NOTE | 2023-12-24 14:29 | Hospitalist Progress Note ---
Date of Service December 24, 2023 Assessment & Plan (1) Syncope and collapse: Plan: 88-year-old female with past medical history significant for gout, hyperlipidemia, hypertension, history of CAD s/p stent, CKD stage III, history of malignant neoplasm of corpus uteri, polymyalgia rheumatica, osteoporosis, glaucoma, bullous pemphigoid, aortic stenosis s/p bioprosthetic aortic valve replacement, Chronic diastolic CHF and history of pleural effusion with thoracocentesis who lives at [facility] personal-[facility] comes with episode of syncope. Patient states she was in the kitchen when suddenly she feels dizzy and fell down on the side and hit her head. PENNIE on CKD3- likely EVA related to contrast for CTA. creatinine 1.8 today, likely the peak, baseline of 1.3. Seen by nephrology. Recommendations noted. Will recheck in am. Sudden onset vision loss left eye with complete spontaneous recovery- stroke workup negative with negative CT head, CTA head and neck, MRI brain and orbit. Seen by teleneuro- no indication for TNK given spontaneous recovery. Seen by neurology who suggested that it could be vitreous floaters and recommended ophthalmology follow-up and did not recommend any further neurologic workup. Recommended anticoagulation for A-fib. Patient has been already started on Eliquis 2.5 twice daily. stroke protocol discontinued. Syncope/fall at home- No arrhythmia, suspected orthostatic/dehydration due to excess diuretics given her preload dependent state per echo. Echo reviewed- extremely small LV cavity with severe left hypertrophy and hyperdynamic LV function. CT head and cervical spine with no acute abnormality. Cardio fol lowing. Orthostatic vitals done again today were negative. History of CAD s/p stent- on aspirin, statin, Imdur, metoprolol succinate Chronic diastolic CHF- Compensated, volume status stable, remains on room air with no shortness of breath. will have torsemide 3 times a week for as needed at discharge, currently holding in setting of PENNIE and stability. HTN- BP Better today. Continue metoprolol, amlodipine Persistent atrial fibrillation- on metoprolol, started on Eliquis this admission. UTI- urine clx with staph aureus pansensitive. Continue doxy for 1 week course started 12/19. DVT ppx- Eliquis Dispo- Anticipate discharge back to [facility] tomorrow. Rechecking renal function in am. Transportation could not be arranged today for her per CM. Time spent- approximately 35 minutes Admission and Anticipated Discharge Date Admission Date: December 18, 2023 Subjective Patient was seen and examined at bedside. She is comfortable and anxious to go back. Her Cr seems to have plateaued and will likely be on downward trend here onwards. Making urine. On room air. Per CM, transportation could not be arranged for today for her to go back. Review of Systems Review of Systems: All systems reviewed & are unremarkable except as noted in Subjective Physical Exam Physical Exam: General: Frail elderly female, sitting in chair, on room air HEENT: TYLER, MMM, some ectropion Chest: Fair breath sounds bilaterally CVS: Irregularly irregular, no JVD Abdomen: Soft, non tender, not distended, normal bowel sounds Neuro: Awake, alert, oriented, conversing well, non focal Extremities: No edema Results & Data Results & Data Vital Signs (Past 12 Hours) Vital Signs Temp Pulse Pulse Resp BP Pulse Ox O2 Del Method 12/24/23 11:45 36.7 C 82 19 117/63 93 Room Air 12/24/23 08:02 36.7 C 85 19 152/74 H 95 Room Air 12/24/23 07:33 82 12/24/23 07:21 Nasal Cannula O2 Flow Rate 12/24/23 11:45 12/24/23 08:02 12/24/23 07:33 12/24/23 07:21 2 Laboratory Results [facility] 12/24/23 07:45 Sodium 135 L Potassium 5.1 Chloride 98 Carbon Dioxide 33 H BUN 41 H Creatinine 1.80 H Glucose 97 Calcium 9.8
[2023-12-25 06:27] LABS: BUN Creatinine Ratio 23.3 (10-20); Calcium 10.2 mg/dl (8.6-10.3); Creatinine Clr Calc Pharmacy 21.4 ml/min; Est GFR (African American) 28.8 ml/min; Est GFR (Non-African American) 24.9 ml/min; Potassium 5.1 mmol/L (3.5-5.1)
--- NOTE | 2023-12-25 12:08 | Discharge Summary ---
Date of Service December 25, 2023 Admission HPI Per Admitting Provider 88-year-old female with past medical history significant for gout, hyperlipidemia, hypertension, history of CAD s/p stent, CKD stage III, history of malignant neoplasm of corpus uteri, polymyalgia rheumatica, osteoporosis, glaucoma, bullous pemphigoid, aortic stenosis s/p bioprosthetic aortic valve replacement, Chronic diastolic CHF and history of pleural effusion with thoracocentesis who lives at [facility] comes with episode of syncope. Patient states she was in the kitchen when suddenly she feels dizzy and fell down on the side and hit her head. It happened so fast. She thinks she lost consciousness for seconds. When she woke up she was not confused as per patient. Currently alert and oriented x 3. She does not have her false teeth on now and having some difficulty talking but able to give her history. Has some mild headache. Denies any blurred vision. No runny nose. No sore throat. No cough. States appetite is okay. She is eating okay. Denies any chest pain or shortness of breath. No nausea. No abdominal pain. States normal bowel and bladder movements.. States ambulates with a walker. Currently hemodynamics are okay. Past medical history. As mentioned above past surgical history. Biopsy of the breast. Cardiac cath. Colonoscopy. EGD. cholecystectomy. Bioprosthetic aortic valve replacement. Total hysterectomy. Social history. Lives alone. Quit smoking 1992. Smoked 1 pack a day for 35 years. No alcohol use. No drug use. Family history. Mother had rectum and nose cancer. Father had stroke. Admission Exam Per Admitting Provider General- adult Head- laceration on left side of scalp. Eyes- PERRL. ENT- oropharynx clear Neck- supple, no JVD, Lungs- clear to auscultation no wheezing or crackles. Heart- regular rhythm; no murmur, no gallop. Abdomen- normal bowel sounds, soft, nontender, no distension. Extremities- mild pretibial edema, no erythema seen Neuro- alert, oriented x 3; PERRL, no facial palsy; no dysarthria; motor 5/5 bilaterally; obeys simple commands. co ordination of movements normal. Skin- warm & dry Principal Diagnosis Syncope, Persistent A fib, Temporary vision loss left eye, UTI, PENNIE Discharge Exam General: Frail elderly female, sitting in chair, on room air HEENT: TYLER, MMM, some ectropion Chest: Fair breath sounds bilaterally CVS: Irregularly irregular, no JVD Abdomen: Soft, non tender, not distended, normal bowel sounds Neuro: Awake, alert, oriented, conversing well, non focal Extremities: No edema Discharge Data Allergies Allergy/AdvReac Type Severity Reaction Status Date / Time allopurinol Allergy Unknown ON JACKSON Verified 12/17/23 23:30 [facility] MED LIST Cephalosporins Allergy Unknown ON JACKSON Verified 12/17/23 23:30 [facility] MED LIST gramicidin D [From Neocidin] Allergy Unknown Redness of Verified 08/18/23 11:23 Skin neomycin [From Neocidin] Allergy Unknown Redness of Verified 08/18/23 11:23 Skin polymyxin B [From Neocidin] Allergy Unknown Redness of Verified 08/18/23 11:23 Skin chocolate AdvReac Unknown Unknown Verified 12/17/23 23:30 Consultations 12/17/23 22:27 ED Decision to Admit Stat 12/18/23 08:00 Consult Cardiology Routine 12/20/23 10:11 Consult Neurology Routine 12/24/23 08:21 Consult Nephrology Routine Ordered Studies 12/17/23 20:30 CT cervical spine wo con Stat CT head/brain wo con Stat 12/20/23 08:50 CT head/brain wo con Stat 12/20/23 08:51 CTA head w con [CT angio head w con] Stat 12/20/23 08:52 CTA neck with con [CT angio neck with con] Stat 12/20/23 10:11 MR brain wo con Routine MRI Orbit [MR orbit wo con] Routine Laboratory Results WBC 6.02 K/ul (4.8-10.8) 12/23/23 05:54 RBC 2.95 M/uL (4.20-5.40) L 12/23/23 05:54 Hgb 9.6 g/dl (12.0-16.0) L 12/23/23 05:54 Hct 29.7 % (37.0-47.0) L 12/23/23 05:54 MCV 100.7 fL (80.0-100.0) H 12/23/23 05:54 MCH 32.5 pg (25.0-34.0) 12/23/23 05:54 MCHC 32.3 g/dL (32.0-36.0) 12/23/23 05:54 RDW Std Deviation 47.5 fL (36.4-46.3) H 12/23/23 05:54 RDW Coeff of Jimmie 12.8 % (11.5-14.5) 12/23/23 05:54 Plt Count 161 K/uL (130-400) 12/23/23 05:54 MPV 10.6 fL (9.4-12.4) 12/23/23 05:54 Immature Gran % (Auto) 0.2 % 12/23/23 05:54 Neut % (Auto) 73.0 % 12/23/23 05:54 Lymph % (Auto) 10.1 % 12/23/23 05:54 [place] % (Auto) 9.8 % 12/23/23 05:54 Eos % (Auto) 6.1 % 12/23/23 05:54 Baso % (Auto) 0.8 % 12/23/23 05:54 Neut # (Auto) 4.39 K/uL (1.40-6.50) 12/23/23 05:54 Lymph # (Auto) 0.61 K/uL (1.20-3.40) L 12/23/23 05:54 [place] # (Auto) 0.59 K/uL (0.11-0.59) 12/23/23 05:54 Eos # (Auto) 0.37 K/uL (0.00-0.50) 12/23/23 05:54 Baso # (Auto) 0.05 K/uL (0.00-0.20) 12/23/23 05:54 Immature Gran # (Auto) 0.01 K/uL (0.01-0.20) 12/23/23 05:54 PT 11.9 Seconds (9.0-12.0) 12/20/23 09:17 INR 1.1 (0.9-1.1) 12/20/23 09:17 APTT 26 Seconds (21-31) 12/20/23 09:17 PTT Ratio 1.0 12/20/23 09:17 Heparin Anti-Xa, Unfract 0.37 IU/ml (0.3-0.7) 12/21/23 04:22 Sodium 133 mmol/L (136-145) L 12/25/23 05:35 Potassium 5.1 mmol/L (3.5-5.1) 12/25/23 05:35 Chloride 96 mmol/L (98-107) L 12/25/23 05:35 Carbon Dioxide 33 mmol/L (21-32) H 12/25/23 05:35 Anion Gap 4 (3-11) 12/25/23 05:35 BUN 42 mg/dl (6-23) H 12/25/23 05:35 Creatinine 1.80 mg/dl (0.6-1.2) H 12/25/23 05:35 Est Cr Clr Drug Dosing 21.4 ml/min 12/25/23 05:35 Est GFR ( Amer) 28.8 ml/min 12/25/23 05:35 Est GFR (Non-Af Amer) 24.9 ml/min 12/25/23 05:35 BUN/Creatinine Ratio 23.3 (10-20) H 12/25/23 05:35 Glucose 102 mg/dl (70-99(Fasting)) H 12/25/23 05:35 POC Glucose 130 mg/dl (70-99) H 12/20/23 08:54 Estimat Average Glucose 123 mg/dl 12/21/23 04:22 Hemoglobin A1c 5.9 % (4.5-5.6) H 12/21/23 04:22 Calcium 10.2 mg/dl (8.6-10.3) 12/25/23 05:35 Phosphorus 3.9 mg/dl (2.5-4.9) 12/19/23 05:44 Magnesium 1.8 mg/dl (1.7-2.4) 12/21/23 04:22 Total Bilirubin 1.2 mg/dl (0.2-1.0) H 12/17/23 20:32 AST 22 U/L (13-39) 12/17/23 20:32 ALT 23 U/L (7-52) 12/17/23 20:32 Alkaline Phosphatase 96 U/L (34-104) 12/17/23 20:32 Troponin I High Sens 37.5 pg/ml (0-14) H 12/18/23 11:20 B-Natriuretic Peptide 496 pg/ml (0-100) H 12/17/23 20:32 Total Protein 7.2 gm/dl (6.0-8.3) 12/17/23 20:32 Albumin 4.0 gm/dl (3.4-5.0) 12/17/23 20:32 Globulin 3.2 gm/dl (2.5-4.0) 12/17/23 20:32 Albumin/Globulin Ratio 1.3 (0.9-2) 12/17/23 20:32 Triglycerides 62 mg/dl (0-150) 12/21/23 04:22 Cholesterol 95 mg/dl (0-200) 12/21/23 04:22 LDL Cholesterol, Calc 48 mg/dl 12/21/23 04:22 VLDL Cholesterol, Calc 12 mg/dl (0-30) 12/21/23 04:22 HDL Cholesterol 35 mg/dl 12/21/23 04:22 Cholesterol/HDL Ratio 2.7 (0-5) 12/21/23 04:22 Lipase 20 U/L (11-82) 12/17/23 20:32 Urine Color Yellow 12/18/23 05:40 Urine Appearance Cloudy (Clear) A 12/18/23 05:40 Urine pH 6.5 (4.5-7.5) 12/18/23 05:40 Ur Specific [place] 1.013 (1.000-1.030) 12/18/23 05:40 Urine Protein Negative (Negative) 12/18/23 05:40 Urine Glucose (UA) Negative (Negative) 12/18/23 05:40 Urine Ketones Negative (Negative) 12/18/23 05:40 Urine Blood Negative (Negative) 12/18/23 05:40 Urine Nitrite Negative (Negative) 12/18/23 05:40 Urine Bilirubin Negative (Negative) 12/18/23 05:40 Urine Urobilinogen Negative (Negative) 12/18/23 05:40 Ur Leukocyte Esterase 3+ (Negative) H 12/18/23 05:40 Urine WBC (Auto) >50 /hpf (0-5) H 12/18/23 05:40 Urine RBC (Auto) 0-2 /hpf (0-2) 12/18/23 05:40 U Hyaline Cast (Auto) 3-5 /lpf (0-2) H 12/18/23 05:40 U Epithel Cells (Auto) 0-2 /hpf (0-2) 12/18/23 05:40 Urine Bacteria (Auto) None Seen (None Seen) 12/18/23 05:[address] 12/17/23 20:30 Exam(s): CT C SPINE EXAM: CT Cervical Spine Without Intravenous Contrast CLINICAL HISTORY: Reason for exam: syncope; fall from standing. TECHNIQUE: Axial computed tomography images of the cervical spine without intravenous contrast. CTDI is 22 mGy and DLP is 397 mGy-cm. Automated exposure control was utilized for the study. A dose lowering technique was utilized adhering to the principles of ALARA. COMPARISON: No relevant prior studies available. FINDINGS: Bones are demineralized. Vertebral body heights are maintained. There is no fracture or subluxation. There is advanced bilateral facet degeneration associated with 3 millimeters anterolisthesis of C2 and 2 mm anterolisthesis of C3. There is degeneration of the atlantodental joint. There is multilevel disc degeneration, greatest at C4-C5, C5-C6, and C6-C7. Bulky anterior endplate osteophytes raise the possibility of diffuse idiopathic skeletal hyperostosis. There is advanced uncovertebral joint degeneration in the mid and lower cervical spine. Disc-osteophyte complex is mildly narrow the spinal canal and C4-C5 and C5-C6. There are varying degrees of bilateral foraminal narrowing. There is pleural-parenchymal scarring and paraseptal emphysema at the lung apices. Carotid calcifications are noted. There is no swelling of the prevertebral soft tissues. IMPRESSION: No acute osseous findings. Electronically signed by: Antonia Sung M.D. 12/17/23 21:57 PM Chest X-Ray 12/17/23 20:30 SINGLE VIEW CHEST CLINICAL HISTORY: Syncope. FINDINGS: An AP, portable, upright chest radiograph is compared to study dated 11/24/2023 and correlated with chest CT dated 10/10/2023. The patient is status post midline sternotomy and cardiac valve surgery. The heart is enlarged noting atherosclerotic calcification of the thoracic aorta. The pulmonary vasculature is noncongested. Emphysema and chronic interstitial thickening is similar to previous. There are layering pleural effusions with dependent consolidation. No pneumothorax is seen. The skeletal structures are osteopenic. Bony thorax is grossly intact. IMPRESSION: 1. Cardiomegaly and emphysema without radiographic evidence of congestive failure. 2. Layering pleural effusions with dependent consolidation. ACT 112: Negative or not required by law. Electronically signed by: Don Fallon M.D. 12/18/2023 6:[address] 12/20/23 08:[address] DOSE: 2729.92 mGy.cm HISTORY: Left-sided visual changes. cva s/s TECHNIQUE: Multiaxial CT images of the head were performed without the use of intravenous contrast. Automated exposure control was utilized for this study. A dose lowering technique was utilized adhering to the principles of ALARA. Comparison: Head CT 12/17/2023. Findings: The paranasal sinuses and mastoid air cells are clear. The calvarium and skull base are intact. There is no mass, hematoma, midline shift, acute infarct. White matter hypodensity is nonspecific but suggestive of microvascular ischemic change. The ventricles and sulci demonstrate mild age-related involutional changes. Mild motion artifact. Prior bilateral lens replacement. Punctate calcification again noted within the barry. Old lacunar infarct within the right thalamus, unchanged. Impression: No significant change compared to the prior study. No acute intracranial abnormality. ACT 112: Negative or not required by law. Electronically signed by: Ludwig Braga M.D. 12/20/2023 9:30 AM Head CTA 12/20/23 08:51 CTA ANGIOGRAPHY OF THE HEAD CLINICAL HISTORY: cva s/s. Left-sided visual changes. COMPARISON STUDY: CTA of the head August 06, 2022. Head CT December 17, 2023. TECHNIQUE: Helical axial images of the head were obtained following uneventful intravenous administration of 120 cc of Optiray. Sagittal and coronal reconstructions were viewed as well as maximal intensity projections on an independent 3-D workstation. Automated exposure control was utilized for the study. A dose lowering technique was utilized adhering to the principles of ALARA. FINDINGS: Ventricular system is stable. Basal cisterns are patent. There are no extra-axial collections. No acute hemorrhage is identified on the head CT will be reported separately. There is moderate plaque within the bilateral cavernous carotids without stenosis. No vessel occlusion within the intracranial circulation is noted. There is persistence of the right posterior cerebral artery. Posterior circulation is intact. There is no intracranial aneurysm or dissection. Of note, there is mild asymmetric dilatation of the distal left ophthalmic vein on axial image 172 of 282. The cavernous sinus appears unre markable on this examination. No retrobulbar abnormalities present. There is no proptosis. IMPRESSION: 1. No large vessel occlusion. No intracranial injury. 2. Mild asymmetric dilatation of the distal left ophthalmic vein. No additional abnormalities identified. This finding is of questionable significance. ACT 112: Negative or not required by law. Electronically signed by: Conrado Skaggs M.D. 12/20/2023 9:35 AM Neck CTA 12/20/23 08:52 NECK CTA HISTORY: Left-sided visual changes. TECHNIQUE: Multiaxial CT images of the neck were performed following the intravenous administration of contrast to evaluate the major cervical vessels. 3D/MIP images were also obtained. Sagittal and coronal reformats were reviewed. All measurements were calculated based on NASCET criteria. A dose lowering technique was utilized adhering to the principles of ALARA. COMPARISON STUDY: None. FINDINGS: The aortic arch and proximal great vessels are widely patent. Moderate calcified plaque within the bilateral carotid bifurcations without significant stenosis. The bilateral common carotid arteries are widely patent. The left vertebral artery is widely patent. There is focal moderate narrowing of approximately 50% within the mid right vertebral artery due to the adjacent cervical spine osteophytes. There is focal moderate to severe narrowing within the distal right cervical internal carotid artery best seen on image 277 due to mass effect from the adjacent styloid process and C1 vertebral body. This demonstrates approximate 70% focal stenosis. The left internal carotid artery demonstrates approximately 20% focal stenosis proximally. The mid to distal left internal carotid artery is widely patent. Partially visualized bilateral pleural effusions. IMPRESSION: 1. No evidence for occlusion or dissection within the major cervical vessels. 2. There is focal moderate narrowing of approximately 50% within the mid right vertebral artery due to the adjacent cervical spine osteophytes. 3. There is focal moderate to severe narrowing within the distal right cervical internal carotid artery due to mass effect from the adjacent styloid process and C1 vertebral body. This demonstrates approximate 70% focal stenosis. 4. Bilateral pleural effusions are partially visualized. ACT 112: Negative or not required by law. Electronically signed by: Ludwig Braga M.D. 12/20/2023 9:34 AM Brain MRI 12/20/23 10:11 MR brain wo con CLINICAL HISTORY: Sudden onset loss of vision left eye TECHNIQUE: Multiplanar and multisequence MR images of the brain were obtained without intravenous contrast. Comparison: Prior MRI brain 08/08/[address] head 12/20/2023 FINDINGS: No abnormal restricted diffusion is identified. Foci of T2 and FLAIR hyperintensity are noted in the paraventricular areas consistent with chronic small vessel ischemic disease. Ex vacuo ventriculomegaly and sulcal enlargement is noted compatible with diffuse volume loss. Right posterior fossa meningioma is again seen. There is no mass effect or midline shift. Again seen is a tiny focus of susceptibility artifact. No extra axial fluid collections are seen. The corpus callosum, pituitary gland, and cerebellar tonsils appear grossly unremarkable. Flow voids of the major intracranial arterial vessels are identified. The imaged portions of the paranasal sinuses, mastoid air cells, and orbits are unremarkable. IMPRESSION: 1. No acute abnormality and in particular no evidence of acute infarct. 2. Tiny foci of susceptibility artifact are unchanged from prior exam. No new foci are seen. Findings are nonspecific although amyloid cannot be excluded. 3. Tiny meningioma is again seen. ACT 112: Negative or not required by law. Electronically signed by: Socrates Mcclelland M.D. 12/20/2023 8:10 PM Orbit MRI 12/20/23 10:11 Exam(s): MRI ORBITS EXAM: MR Orbits Without Intravenous Contrast CLINICAL HISTORY: Reason for exam: sudden onset loss of vision Left eye. Fell 3 days ago, hitting head. TECHNIQUE: Multiplanar magnetic resonance images of the orbits without intravenous contrast. Mild artifact and limited detail due to noncontrast technique. COMPARISON: MRI brain also done, dictated separately. Compared with CT/CTA done earlier, and MRI brain 08/08/22. FINDINGS: Orbits: Unremarkable. Sinuses: Unremarkable. No air-fluid levels. Bones/joints: Unremarkable. No acute fracture. Soft tissues: Unremarkable. IMPRESSION: 1. No abnormal signal or acute abnormality along the visual pathway. 2. Limited evaluation due to artifact and noncontrast technique. Electronically signed by: So Miguel M.D. 12/20/23 21:34 PM Hospital Course (1) Syncope and collapse: 88-year-old female with past medical history significant for gout, hyperlipidemia, hypertension, history of CAD s/p stent, CKD stage III, history of malignant neoplasm of corpus uteri, polymyalgia rheumatica, osteoporosis, glaucoma, bullous pemphigoid, aortic stenosis s/p bioprosthetic aortic valve replacement, Chronic diastolic CHF and history of pleural effusion with thoracocentesis who lives at [facility] personal-usp comes with episode of syncope. Patient states she was in the kitchen when suddenly she feels dizzy and fell down on the side and hit her head. Seen by cardio. Attributed to possible hypovolemia due to overdiuresis. Echo done- extremely small LV cavity. Diuretics were held and given only prn. Hospital course complicated by sudden loss of vision of left eye for which stroke alert was called, seen by tele neurology, did not recommend TNK given spontaneous recovery. Stroke work up was negative with negative imaging. Seen by neuro and recommended anticoagulation given her A fib and higher risk for neurological events- cardio agrees. Started on eliquis as benefit weighs higher than risk. Patient and family agrees. Hospital course also complicated by PENNIE due to EVA which has now peaked at 1.8. Seen by nephro who will repeat her renal function as OP prior to resuming diuretics. On doxy for staph aureus UTI. I spoke to cardio who recommends torsemide 10mg prn or at max 3 times a week given her extremely small LV cavity and preload dependent status- so as to prevent further syncope or falls. Orthostatic vitals normal here. Hospital stay prolonged given inadequate staff at her facility to take her back over the weekend. She is anxious to go back. She is comfortable and stable to discharge back to [facility] with follow up with her PCP, nephro, ophthalmology and cardiology. PENNIE on CKD3- likely EVA related to contrast for CTA. creatinine peaked at 1.8 today, baseline of 1.3. Seen by nephrology. Recommendations noted. Nephro will follow up as OP with repeat BMP and will instruct her when to resume her torsemide, depending on renal recovery. Sudden onset vision loss left eye with complete spontaneous recovery- stroke workup negative with negative CT head, CTA head and neck, MRI brain and orbit. Seen by teleneuro- no indication for TNK given spontaneous recovery. Seen by neurology who suggested that it could be vitreous floaters and recommended ophthalmology follow-up and did not recommend any further neurologic workup. Recommended anticoagulation for A-fib. Patient has been already started on Eliquis 2.5 twice daily. stroke protocol discontinued. Syncope/fall at home- No arrhythmia, suspected orthostatic/dehydration due to excess diuretics given her preload dependent state per echo. Echo reviewed- extremely small LV cavity with severe left hypertrophy and hyperdynamic LV function. CT head and cervical spine with no acute abnormality. Cardio following. Orthostatic vitals done were negative. History of CAD s/p stent- on aspirin, statin, Imdur, metoprolol succinate Chronic diastolic CHF- Compensated, volume status stable, remains on room air with no shortness of breath. Torsemide prn per cardio, at max three times per week. She will follow up with nephro regarding when to resume as stated above. HTN- BP better today. Continue metoprolol, amlodipine Persistent atrial fibrillation- on metoprolol, started on Eliquis this admission. UTI- urine clx with staph aureus pansensitive. Continue doxy for 1 week course started 12/19. Total Time Total Time Spent Total Time Spent (In Minutes): 33 Discharge Plan Discharge Items Patient Disposition: Personal Residential Reason For Visit: SYNCOPE Discharge Diagnosis: Syncope, Persistent A fib, Temporary vision loss left eye, UTI, PENNIE Activity: Resume your previous activity Non-emergency contact: Primary Care Provider, Mailroom Personnel and Steward/Stewardess Deck Call non-emergency contact if: you have any medication questions, your symptoms worsen and your pain is concerning for you Follow-up/Referrals: Thorne Holding, [facility] [Primary Care Provider] - Diet: Heart Healthy and Low Sodium (2gm) Addtl Attending Provider Instructions: Continue the blood thinner eliquis 2.5 mg twice daily. Recommend to take care not to fall and ask for help so as to prevent falls. Continue doxycycline for 2 more days See the eye doctors for your temporary vision loss in your left eye Per kidney doctors, get the blood work (renal function panel) on 12/26 to see how the kidneys are. Hold your torsemide until then and until the kidney doctor clears you to take it. Per heart doctors, the waterpill torsemide should be three times a week or as needed for shortness of breath/swelling rather than everyday so as to prevent dehydration and falls. Pending Studies at Discharge: No Stand-Alone Forms: My [employer], Smoking Cessation Skilled Items Patient informed of condition?: Yes DNR: No Discharge Level of Care: Other Communicable Disease: No Discharge Prognosis: Stable Lines: None Urinary Catheter: No Medications and DC Order Prescriptions: New amlodipine [Norvasc] 5 mg Tablet 5 mg PO QAM Qty: 30 0RF Eliquis 2.5 mg Tablet 2.5 mg PO BID Qty: 60 0RF doxycycline hyclate 100 mg tablet 100 mg PO BID 2 Days Qty: 4 0RF Continued aspirin [Lyly Low Dose Aspirin] 81 mg Tablet,Delayed Release (Dr/Ec) 81 mg PO QAM acetaminophen [Acetaminophen Extra Strength] 500 mg Tablet 500 mg PO Q4H MDD 3 GRAMS/24 HOURS PRN (Reason: Pain Scale 4-6) sennosides 8.6 mg Tablet 8.6 mg PO QAM fexofenadine 180 mg Tablet 180 mg PO DAILY isosorbide mononitrate 30 mg Tablet Extended Release 24 Hr 30 mg PO QAM Qty: 30 0RF omeprazole 20 mg Capsule,Delayed Release(Dr/Ec) 20 mg PO DAILY Systane (PF) 0.4-0.3 % Dropperette 1 drp OPB BID docosanol [Abreva] 10 % Cream 1 applic TOPICAL UD PRN (Reason: Cold Sores) Rx Instructions: May keep at bedside for independent use. Metamucil Sun Powder 1 tbsp PO DAILY Rx Instructions: Mix 1 tablespoon in 6-8oz of fluid and drink by mouth once daily for fiber supplement. diphenhydramine HCl [Benadryl] 25 mg Capsule 25 mg PO HS PRN (Reason: Allergies) cholecalciferol (vitamin D3) [Vitamin D3] 50 mcg (2,000 unit) Tablet 50 mcg PO DAILY docusate sodium 100 mg Capsule 100 mg PO BID PRN (Reason: Constipation) Qty: 30 0RF Preparation H Maximum Strength 0.25-1 % Cream 1 applic KS BID PRN (Reason: hemorrhoid inflammation) trolamine salicylate [Aspercreme] 10 % Cream 1 applic TOPICAL QID PRN (Reason: Pain) Rx Instructions: may keep at bedside for independent use alum-mag hydroxide-simeth 400-400-40 mg/5 mL Suspension 10 ml PO QID PRN (Reason: Heartburn) miconazole nitrate 2 % Cream 1 applic TOPICAL UD PRN (Reason: skin protection) Rx Instructions: apply topically to affected area as needed form skin protection, may keep at bedside for independent use amoxicillin 500 mg capsule 2,000 mg PO DAILY PRN (Reason: infection prevention) Rx Instructions: give 1 hour prior to dental work atorvastatin 40 mg tablet 40 mg PO DAILY loperamide 2 mg Tablet 2 mg PO UD MDD 4 tablets in 24hrs PRN (Reason: Diarrhea) Rx Instructions: Take 2 tablets by mouth after first loose stool, then 1 tablet by mouth thereafter each loose stool. cyanocobalamin (vitamin B-12) 500 mcg tablet 1,000 mcg PO DAILY nitroglycerin [Nitrostat] 0.4 mg tablet, sublingual 0.4 mg sublingual UD PRN (Reason: Chest Pain) Rx Instructions: Dissolve 1 tablet under tongue as needed, may repeat every 5 minutes x 3 doses. Changed metoprolol succinate 50 mg tablet extended release 24 hr 50 mg PO BID Qty: 0 0RF Rx Instructions: Take 1 and 1/2 tablets po daily. ferrous sulfate 325 mg (65 mg iron) Tablet 325 mg PO Q48H Qty: 0 0RF torsemide 20 mg Tablet 10 mg PO UD PRN (Reason: prn) 30 Days Qty: 30 1RF Rx Instructions: Hold until cleared by the kidney doctors to take it until at least after the blood work on 12/26. Take as needed for shortness of breath and leg swelling. Discharge Orders: Discharge Order (Routine); Ordered 12/25/23 Ordered By: [place] Admission Data Admit Date/Time: 12/18/23 01:29 Attending Provider: [place] Admit Provider: Natan Giraldo Primary Care Provider: Jose Alva,[facility], [facility] Other Providers: Natan Giraldo; Matthew Figueroa Anthony; Paty Streeter Other Interventions: Discharge Summary Assessment (RN) Last Done: 12/25/23 11:22
== END 2023-12-25 12:24 | disposition home or self-care (01) | DRG 641 ==
LOC: ED 20:17 → SUATTDRO 12-18 01:29 → 4W 12-18 01:29